=== PATIENT | female | born 1940 | race Caucasian/White ===

== ENCOUNTER → 2016-08-23 | Outpatient (CLI) | payer OTHER ==
[~2016-08-23] MED LIST: CETI10TA84 PO; EVS60 PO; EZET10TA38 PO; LANS15CA6 PO; LISI20TA3 PO; SNG10 PO; ZNTT/150 PO
--- NOTE | 2016-08-23 13:07 | MAMMOGRAPHY REPORT ---
BILATERAL DIGITAL SCREENING MAMMOGRAM WITH CAD: 08/23/2016 CLINICAL HISTORY: Routine screening. Patient has no complaints. TECHNIQUE: Bilateral CC, MLO and repeat left MLO views were obtained. Current study was also evaluat ed with a Computer Aided Detection (CAD) system. COMPARISON: Comparison is made to exams dated: 08/21/2015 mammogram, 08/19/2014 mammogram, 06/24/2013 m ammogram, 08/15/2012 mammogram, 08/15/2011 mammogram, and 08/12/2010 mammogram - [facility]. BREAST COMPOSITION: There are scattered areas of fibroglandular density in both breasts. FINDINGS: There are scattered benign-appearing microcalcifications in the breasts. A 9 mm focal asym metry in the 11:30 right breast appears similar on all available prior mammograms dating back to at [facility] 08/07/2007, therefore likely benign. No new suspicious mass, architectural distortion or cluste r of microcalcifications is seen. IMPRESSION: ACR BI-RADS CATEGORY 1: NEGATIVE There is no mammographic evidence of malignancy. A 1 year screening mammogram is recommended. The pa tient will receive written notification of the results. Approximately 10% of breast cancers are not detected with mammography. A negative mammographic report should not delay biopsy if a clinically suggestive mass is present. Lana Acevedo M.D. ay/:08/23/2016 12:12:24 Burial Needs Salesperson: Joanna BOWMAN(Rozina)(Rosalind)(BD), [facility] letter sent: Normal 1/2 BI-RADS Code: ACR BI-RADS Category 1: Negative
== END | disposition home or self-care (01) ==
LOC: C.MAMM 10:09
PROVIDERS: ATTEND Internal Medicine
DX: Z12.31 Encounter for screening mammogram for malignant neoplasm of breast (principal)

== ENCOUNTER → 2017-08-25 | Outpatient (CLI) | payer OTHER ==
[~2017-08-25] MED LIST changes: +RANI150T85 PO; -ZNTT/150 PO
--- NOTE | 2017-08-28 07:45 | MAMMOGRAPHY REPORT ---
BILATERAL DIGITAL SCREENING MAMMOGRAM TOMOSYNTHESIS WITH CAD: 08/25/2017 CLINICAL HISTORY: Routine screening. Patient has no complaints. TECHNIQUE: The study was acquired using full field digital technology and interpreted from soft copy. Breast tomosynthesis in addition to standard 2D mammography was performed. Current study was also ev aluated with a Computer Aided Detection (CAD) system. COMPARISON: Comparison is made to exams dated: 08/23/2016 mammogram, 08/21/2015 mammogram, 08/19/2014 m ammogram, 06/24/2013 ultrasound, 06/24/2013 mammogram, and 08/15/2012 mammogram - [facility]. BREAST COMPOSITION: There are scattered areas of fibroglandular density in both breasts. FINDINGS: No suspicious masses, calcifications, or areas of architectural distortion are noted in either breast . There has been no significant interval change compared to prior exams. IMPRESSION: ACR BI-RADS CATEGORY 1: NEGATIVE There is no mammographic evidence of malignancy. A 1 year screening mammogram is recommended.( 019) The patient will receive written notification of the results. Some breast cancers are not detected with mammography. A negative mammographic report should not dar y biopsy if a clinically suggestive mass is present. Tana Lawrence M.D. ah/:08/25/2017 12:33:31 Potable Water Treatment Operator: Yumiko Brenner, [facility] letter sent: Normal 1/2 BI-RADS Code: ACR BI-RADS Category 1: Negative
== END | disposition home or self-care (01) ==
LOC: C.MAMM 10:00
PROVIDERS: ATTEND Internal Medicine
DX: Z12.31 Encounter for screening mammogram for malignant neoplasm of breast (principal)

== ENCOUNTER 2022-04-28 08:38 | Observation (INO) ==
[2022-04-28] MEDS ORDERED: SODIUM CHLORIDE 0.9% 1000ML 1,000 ML IV SCH (09:00)
--- NOTE | 2022-04-28 09:01 | Emergency Department Note ---
Impression & Plan Confusion, Generalized weakness, Acute UTI (urinary tract infection) ED Provider Note ED Provider Note NAME: HALLE HAMMOND AGE:81 SEX: Female : 1940 ARRIVES VIA: EMS INFORMANT: Patient and EMS ED PROVIDER(s): Jeni Slater DO CHIEF COMPLAINT: Confusion, recent UTI, weakness, chest heaviness HPI: This is an 81-year-old female brought in by EMS due to concern for confusion, weakness, chest heaviness, and recent UTI. Patient recognizes that she is confused and became concerned and contacted EMS. They were able to determine that she has been taking Bactrim for recent UTI. Patient reported that she began to double up on the doses in the hopes of treating it sooner. She states she has not had much of an appetite but is trying to sip fluids. She denies falls or injury. She reported to EMS that she awoke at 4 AM with chest heaviness. She denies any chest pain at this time but states she feels slightly short of breath. She denies fevers but states she has been very cold. Patient lives alone at home. Patient is a poor historian and when asked some questions a second time gives alternative answers. PAST MEDICAL HISTORY:See Below PAST SURGICAL HISTORY:See Below FAMILY HISTORY:See Below SOCIAL HISTORY:See Below HOME MEDICATIONS:See Below ALLERGIES:See Below VITALS:See Below PHYSICAL EXAMINATION: GENERAL: alert, well appearing, well nourished, no distress, non-toxic EYE EXAM: normal conjunctiva, PERRL and EOM's grossly intact OROPHARYNX: no exudate, no erythema, lips, buccal mucosa, and tongue normal and mucous membranes are dry NECK: supple, no nuchal rigidity, no adenopathy, non-tender LUNGS: Clear to auscultation. Normal chest wall mechanics, no w/r/r HEART: no murmurs, S1 normal and S2 normal ABDOMEN: abdomen soft, non-tender, normo-active bowel sounds, no masses, no rebound or guarding. BACK: Back is symmetrical on inspection and there is no deformity, no midline tenderness, no CVA tenderness. SKIN: no rashes, petechiae, orbruising UPPER EXTREMITIES: upper extremities are grossly normal. FROM, nml pulses b/l. LOWER EXTREMITIES: No pitting edema. FROM, nml pulses b/l. NEURO EXAM: Normal sensorium, cranial nerves II-XII grossly intact, normal s peech, no facial droop,nogross weakness of arms, no gross weakness of legs. Gross sensation intact. No ataxia. Vital Signs: reviewed and remarkable Differential Diagnosis: Differential diagnoses includes but is not limited to toxic, metabolic, infectious, traumatic, cardiac, neurologic, hematologic, psychiatric and inflammatory etiologies. MEDICAL DECISION MAKING: This is an 81-year-old female presents via EMS due to concern for confusion, weakness, decreased appetite, recent UTI. Unclear chronology of events as patient is a poor historian and does live alone. Upon arrival of son he was able to help with some detail although not all. Patient was afebrile and vital signs were stable. Labs drawn and sent, IV established, EKG performed and interpreted by me at bedside, chest x-ray performed and interpreted by me at bedside, patient placed on telemetry. Patient's labs and chest x-ray reassuring, no acute EKG changes noted, no ectopy or dysrhythmia noted on telemetry, CT head unremarkable, and urinalysis without evidence of persistent infection. Mild leukocytosis was noted although unclear if related to recent UTI. Review of outpatient urine culture does show Bactrim was within appropriate sensitivities. Patient was started on gentle IV fluid rehydration as she did appear clinically dehydrated. Due to concern for confusion, failure to thrive, and recent infection, case discussed with hospitalist for additional evaluation and management. Consultation(s): 1102: Discussed with Padmini Bragg hospitalist service. ER Treatment Provided: See below 1002: Updated patient and son at bedside. Son feels that his mother's health and mental state of overall been in decline for several months. He states she is lost weight is not eating, seems more anxious and scared at home. Diagnostics Interpreted By Me: -ECG: Normal sinus at 81, normal axis, normal intervals, no acute ST/T wave changes -Cardiac Monitoring: An order was placed for continuous cardiac monitoring. The monitor shows a rate of 80 with normal sinus rhythm. -Laboratory studies: As stated above and show below. -Imaging studies: X-ray Chest: A single view study of the chest was reviewed and was negative for cardiomegaly, focal infiltrate, effusion, pulmonary edema, or wide mediastinum. Triage Nursing Note Reviewed Prior/Outside Records Reviewed -outside PCP office visit, UA and culture/sensitivities Procedures: [] Critical Care: [] Past Med/Surg History Medical History (Updated 04/28/22 @ 11:23 by HUMBERTO Durán) Asthma hx-"no problems for a long time" B-cell lymphoma GERD (gastroesophageal reflux disease) Hyperlipidemia Hyperparathyroidism Hypertension Osteopenia Surgical History History of cataract surgery RT History of esophagogastroduodenoscopy (EGD) History of laparotomy for removal ectopic Hx of colonoscopy Social History Smoking Status: Former smoker Second Hand Exposure: No; Do You Dip or Chew Tobacco: No; Tobacco Cessation Education Requested by Patient: No Hx Alcohol Use: No Preferred Language: Angolan Communication Ability: Effective Carburetor Repairer Required: No Beliefs That Will Affect Care: None Current Living Situation: Alone Current Living Situation Comment: Son lives next door Other Information That Helps Us Care for You: No Feels Safe at Home: Yes Safety Concerns: Feels Safe At This Time Assistive Devices: Glasses Allergies Allergies Allergy/AdvReac Type Severity Reaction Status Date / Time aspirin Allergy Mild lip sweling Verified 04/28/22 11:25 Penicillins Allergy Mild UNKNOWN Verified 04/28/22 11:26 diphenhydramine Allergy Edema of Verified 04/28/22 11:25 [From Benadryl] face, lips, tongue ibuprofen Allergy edema of Verified 04/28/22 11:25 face, lips, tongue red dye Allergy Edema of Verified 04/28/22 11:25 face, lips & tongue. [facility] Home Medications Medication Instructions Recorded Confirmed cetirizine 10 mg tablet (Zyrtec) 10 mg PO QAM 12/15/21 04/28/22 lisinopril 20 mg tablet 20 mg PO QAM 12/15/21 04/28/22 montelukast 10 mg tablet 10 mg PO HS 12/15/21 04/28/22 (Singulair) amlodipine 5 mg tablet 2.5 mg PO DAILY 04/28/22 04/28/22 atorvastatin 10 mg tablet 10 mg PO DAILY 04/28/22 04/28/22 cranberry-vitamin C-flaxseed 2 cap PO DAILY 04/28/22 04/28/22 capsule omega-3 fatty acids 1,000 mg PO DAILY 04/28/22 04/28/22 tramadol 50 mg tablet 50 mg PO Q6H PRN Pain 04/28/22 04/28/22 trazodone 50 mg tablet 50 mg PO HS 04/28/22 04/28/22 Results & Data (ED) Vital Signs Vital Signs - 24 hr 04/28/22 08:43 04/28/22 09:33 04/28/22 09:49 Temperature 37.0 C Temperature Source Oral Pulse Rate 78 70 79 Pulse Rate from SpO2 Sensor Respiratory Rate 20 20 Blood Pressure 197/82 H 183/70 H Blood Pressure Mean 120 107 Pulse Oximetry 98 95 Oxygen Delivery Method Room Air Sepsis Recent Fever Within 48 Hours No Sepsis New/Unexplained Change in Mental Status Yes Sepsis Action Taken by Nursing No Action Required 04/28/22 11:00 Temperature Temperature Source Pulse Rate 70 Pulse Rate from SpO2 Sensor 70 Respiratory Rate 18 Blood Pressure 145/72 H Blood Pressure Mean 96 Pulse Oximetry 98 Oxygen Delivery Method Sepsis Recent Fever Within 48 Hours Sepsis New/Unexplained Change in Mental Status Sepsis Action Taken by Nursing Laboratory Data 04/28/22 08:52 04/28/22 08:52 Lab Results 04/28/22 04/28/22 04/28/22 Range/Units 08:52 08:52 08:52 WBC 12.85 H (4.8-10.8) K/ul RBC 5.22 (4.20-5.40) M/uL Hgb 14.5 (12.0-16.0) g/dl Hct 43.6 (37.0-47.0) % MCV 83.5 (80.0-100.0) fL MCH 27.8 (25.0-34.0) pg MCHC 33.3 (32.0-36.0) g/dL RDW Std Deviation 39.5 (36.4-46.3) fL RDW Coeff of Estrella 12.9 (11.5-14.5) % Plt Count 297 (130-400) K/uL MPV 9.0 L (9.4-12.4) fL Immature Gran % (Auto) 0.4 % Neut % (Auto) 78.4 % Lymph % (Auto) 13.8 % Isabela % (Auto) 6.5 % Eos % (Auto) 0.4 % Baso % (Auto) 0.5 % Neut # (Auto) 10.09 H (1.40-6.50) K/uL Lymph # (Auto) 1.77 (1.2-3.4) K/uL Isabela # (Auto) 0.83 H (0.11-0.59) K/uL Eos # (Auto) 0.05 (0-0.50) K/uL Baso # (Auto) 0.06 (0-0.2) K/uL Immature Gran # (Auto) 0.05 (0.01-0.20) K/uL PT 11.4 (9.0-12.0) Seconds INR 1.1 (0.9-1.1) Sodium 136 (136-145) mmol/L Potassium 4.1 (3.5-5.1) mmol/L Chloride 103 (98-107) mmol/L Carbon Dioxide 25 (21-32) mmol/L Anion Gap 8 (3-11) BUN 13 (6-23) mg/dl Creatinine 0.87 (0.6-1.2) mg/dl Est Cr Clr Drug Dosing 45.9 ml/min Est GFR ( Amer) 72.4 ml/min Est GFR (Non-Af Amer) 62.5 ml/min BUN/Creatinine Ratio 14.9 (10-20) Glucose 107 H (70-99(Fasting)) mg/dl Calcium 10.2 (8.6-10.3) mg/dl Magnesium 1.8 (1.7-2.4) mg/dl Total Bilirubin 0.6 (0.2-1.0) mg/dl AST 25 (13-39) U/L ALT 32 (7-52) U/L Alkaline Phosphatase 64 (34-104) U/L Troponin I High Sens 9.3 (0-14) pg/ml Total Protein 7.2 (6.0-8.3) gm/dl Albumin 4.4 (3.4-5.0) gm/dl Globulin 2.8 (2.5-4.0) gm/dl Albumin/Globulin Ratio 1.6 (0.9-2) Lipase 15 (11-82) U/L Procalcitonin (0-0.5) ng/ml TSH (0.300-4.500) uIu/ml Urine Color Urine Appearance (Clear) Urine pH (4.5-7.5) Ur Specific [place] (1.000-1.030) Urine Protein (Negative) Urine Glucose (UA) (Negative) Urine Ketones (Negative) Urine Blood (Negative) Urine Nitrite (Negative) Urine Bilirubin (Negative) Urine Urobilinogen (Negative) Ur Leukocyte Esterase (Negative) SARS-CoV-2 (PCR) (Negative) Influenza Type A (PCR) (Neg) Influenza Type B (PCR) (Neg) RSV (RT-PCR) (Neg) 04/28/22 04/28/22 04/28/22 Range/Units 08:52 08:52 08:55 WBC (4.8-10.8) K/ul RBC (4.20-5.40) M/uL Hgb (12.0-16.0) g/dl Hct (37.0-47.0) % MCV (80.0-100.0) fL MCH (25.0-34.0) pg MCHC (32.0-36.0) g/dL RDW Std Deviation (36.4-46.3) fL RDW Coeff of Estrella (11.5-14.5) % Plt Count (130-400) K/uL MPV (9.4-12.4) fL Immature Gran % (Auto) % Neut % (Auto) % Lymph % (Auto) % Isabela % (Auto) % Eos % (Auto) % Baso % (Auto) % Neut # (Auto) (1.40-6.50) K/uL Lymph # (Auto) (1.2-3.4) K/uL Isabela # (Auto) (0.11-0.59) K/uL Eos # (Auto) (0-0.50) K/uL Baso # (Auto) (0-0.2) K/uL Immature Gran # (Auto) (0.01-0.20) K/uL PT (9.0-12.0) Seconds INR (0.9-1.1) Sodium (136-145) mmol/L Potassium (3.5-5.1) mmol/L Chloride (98-107) mmol/L Carbon Dioxide (21-32) mmol/L Anion Gap (3-11) BUN (6-23) mg/dl Creatinine (0.6-1.2) mg/dl Est Cr Clr Drug Dosing ml/min Est GFR ( Amer) ml/min Est GFR (Non-Af Amer) ml/min BUN/Creatinine Ratio (10-20) Glucose (70-99(Fasting)) mg/dl Calcium (8.6-10.3) mg/dl Magnesium (1.7-2.4) mg/dl Total Bilirubin (0.2-1.0) mg/dl AST (13-39) U/L ALT (7-52) U/L Alkaline Phosphatase (34-104) U/L Troponin I High Sens (0-14) pg/ml Total Protein (6.0-8.3) gm/dl Albumin (3.4-5.0) gm/dl Globulin (2.5-4.0) gm/dl Albumin/Globulin Ratio (0.9-2) Lipase (11-82) U/L Procalcitonin < 0.05 (0-0.5) ng/ml TSH 1.414 (0.300-4.500) uIu/ml Urine Color Urine Appearance (Clear) Urine pH (4.5-7.5) Ur Specific [place] (1.000-1.030) Urine Protein (Negative) Urine Glucose (UA) (Negative) Urine Ketones (Negative) Urine Blood (Negative) Urine Nitrite (Negative) Urine Bilirubin (Negative) Urine Urobilinogen (Negative) Ur Leukocyte Esterase (Negative) SARS-CoV-2 (PCR) NEGATIVE (Negative) Influenza Type A (PCR) Negative (Neg) Influenza Type B (PCR) Negative (Neg) RSV (RT-PCR) Negative (Neg) 04/28/22 Range/Units 09:20 WBC (4.8-10.8) K/ul RBC (4.20-5.40) M/uL Hgb (12.0-16.0) g/dl Hct (37.0-47.0) % MCV (80.0-100.0) fL MCH (25.0-34.0) pg MCHC (32.0-36.0) g/dL RDW Std Deviation (36.4-46.3) fL RDW Coeff of Estrella (11.5-14.5) % Plt Count (130-400) K/uL MPV (9.4-12.4) fL Immature Gran % (Auto) % Neut % (Auto) % Lymph % (Auto) % Isabela % (Auto) % Eos % (Auto) % Baso % (Auto) % Neut # (Auto) (1.40-6.50) K/uL Lymph # (Auto) (1.2-3.4) K/uL [place] # (Auto) (0.11-0.59) K/uL Eos # (Auto) (0-0.50) K/uL Baso # (Auto) (0-0.2) K/uL Immature Gran # (Auto) (0.01-0.20) K/uL PT (9.0-12.0) Seconds INR (0.9-1.1) Sodium (136-145) mmol/L Potassium (3.5-5.1) mmol/L Chloride (98-107) mmol/L Carbon Dioxide (21-32) mmol/L Anion Gap (3-11) BUN (6-23) mg/dl Creatinine (0.6-1.2) mg/dl Est Cr Clr Drug Dosing ml/min Est GFR ( Amer) ml/min Est GFR (Non-Af Amer) ml/min BUN/Creatinine Ratio (10-20) Glucose (70-99(Fasting)) mg/dl Calcium (8.6-10.3) mg/dl Magnesium (1.7-2.4) mg/dl Total Bilirubin (0.2-1.0) mg/dl AST (13-39) U/L ALT (7-52) U/L Alkaline Phosphatase (34-104) U/L Troponin I High Sens (0-14) pg/ml Total Protein (6.0-8.3) gm/dl Albumin (3.4-5.0) gm/dl Globulin (2.5-4.0) gm/dl Albumin/Globulin Ratio (0.9-2) Lipase (11-82) U/L Procalcitonin (0-0.5) ng/ml TSH (0.300-4.500) uIu/ml Urine Color Yellow Urine Appearance Clear (Clear) Urine pH 7.0 (4.5-7.5) Ur Specific [place] 1.007 (1.000-1.030) Urine Protein Negative (Negative) Urine Glucose (UA) Negative (Negative) Urine Ketones Negative (Negative) Urine Blood Negative (Negative) Urine Nitrite Negative (Negative) Urine Bilirubin Negative (Negative) Urine Urobilinogen Negative (Negative) Ur Leukocyte Esterase Negative (Negative) SARS-CoV-2 (PCR) (Negative) Influenza Type A (PCR) (Neg) Influenza Type B (PCR) (Neg) RSV (RT-PCR) (Neg) Administered Medications Heparin Sodium (Porcine) (Heparin Sod 5,000 Unit/0.5 Ml Vial) 5,000 units SQ Q8 ROSEANN Stop: 05/28/22 13:59 Last Admin: 04/28/22 15:13 Dose: 5,000 units Documented By: RICARDO Discontinued Medications Amlodipine Besylate (Amlodipine Besylate 5 Mg Tab) 2.5 mg PO NOW ONE Stop: 04/28/22 11:13 Last Admin: 04/28/22 11:30 Dose: 2.5 mg Documented By: BELTRAN Amlodipine Besylate (Amlodipine Besylate 5 Mg Tab) 2.5 mg PO NOW ONE Stop: 04/28/22 16:22 Last Admin: 04/28/22 17:12 Dose: 2.5 mg Documented By: RICARDO Sodium Chloride (Nss 1000ml) 1,000 mls @ 125 mls/hr IV .Q8H ROSEANN Stop: 05/28/22 08:59 Last Infusion: 04/28/22 12:31 Dose: 0 mls/hr Documented By: Admin: 04/28/22 09:50 Dose: 125 mls/hr Documented By: BELTRAN Lisinopril (Lisinopril 20 Mg Tab) 20 mg PO NOW STA Stop: 04/28/22 11:13 Last Admin: 04/28/22 12:19 Dose: 20 mg Documented By: BELTRAN Imaging Data Radiologist's Impression: Chest X-Ray 04/28/22 08:46 XR chest 1V portable CLINICAL HISTORY: Chest pain. Shortness of breath. COMPARISON STUDY: Chest radiograph August 15, 2010. FINDINGS: Lung volumes are normal. There is no consolidation to suggest pneumonia. Linear left basilar densities represent atelectasis or scarring. There is no pneumothorax or pleural effusion. Cardiac size is normal. There is slight leftward deviation of the trachea. There is no evidence for pulmonary edema. IMPRESSION: No acute cardiopulmonary findings. ACT 112: Negative or not required by law. Electronically signed by: Teo Araujo M.D. 04/28/2022 9:[address] 04/28/22 08:46 CT head/brain wo con CLINICAL HISTORY: confusion Technique: Contiguous axial CT images of the head were acquired from the base of the skull to the vertex without intravenous contrast administration. Images were viewed in brain, subdural and bone windows. Automated dose lowering techniques and/or adjustment according to patient size were utilized for this exam. Comparison: None available at the time of this dictation. Findings: Areas of decreased attenuation are present in the periventricular and subcortical white matter bilaterally consistent with small vessel ischemic disease. Generalized cerebral atrophy with commensurate enlargement of the ventricles, sulci, and cisterns is also present. There is no acute intracranial hemorrhage or evidence of acute territorial infarction. No shift of the midline structures, mass effect, or extra-axial abnormalities are shown. Atherosclerotic calcifications are present in the intracranial segments of the internal carotid arteries. Imaged portions of the paranasal sinuses and mastoid air cells are clear. The orbits appear normal. There are no acute fractures of the calvaria or scalp swelling. Impression: No acute intracranial hemorrhage, no evidence of acute territorial infarction or other acute intracranial disease process. ACT 112: Negative or not required by law. Electronically signed by: Julian Culp M.D. 04/28/2022 9:17 AM Discharge Plan Visit Data Chief Complaint: Chest Pain Stated Complaint: CHEST PAIN, CONFUSION, RED RASH ON LEG ED Provider: Jeni Slater Discharge Problem: Confusion, Generalized weakness, Acute UTI (urinary tract infection) Patient Disposition: Admitted As Inpatient Discharge Instructions Interventions: ED Discharge Assessment Last Done: 04/28/22 12:33
[2022-04-28 09:11] LABS: Basophils # (auto) 0.06 K/uL (0-0.2); Basophils % (auto) 0.5 %; Eosinophils # (auto) 0.05 K/uL (0-0.50); Eosinophils % (auto) 0.4 %; Hematocrit (blood only) 43.6 % (37.0-47.0); Hemoglobin 14.5 g/dl (12.0-16.0); Immature Granulocytes # (auto) 0.05 K/uL (0.01-0.20); Immature Granulocytes % (auto) 0.4 %; Lymphocytes # (auto) 1.77 K/uL (1.2-3.4); Lymphocytes % (auto) 13.8 %; Mean Corpuscular Hemoglobin 27.8 pg (25.0-34.0); Mean Corpuscular Hgb Conc 33.3 g/dL (32.0-36.0); Mean Corpuscular Volume 83.5 fL (80.0-100.0); Monocytes # (auto) 0.83 K/uL (0.11-0.59); Monocytes % (auto) 6.5 %; Neutrophils # (auto) 10.09 K/uL (1.40-6.50); Neutrophils % (auto) 78.4 %; Platelet Count 297 K/uL (130-400); RDW Coefficient of Variation 12.9 % (11.5-14.5); RDW Standard Deviation 39.5 fL (36.4-46.3); Red Blood Count 5.22 M/uL (4.20-5.40); White Blood Count 12.85 K/ul (4.8-10.8)
--- NOTE | 2022-04-28 09:18 | CT Scan Report ---
CT head/brain wo con CLINICAL HISTORY: confusion Technique: Contiguous axial CT images of the head were acquired from the base of the skull to the aldo jud without intravenous contrast administration. Images were viewed in brain, subdural and bone [facility]. Automated dose lowering techniques and/or adjustment according to patient size were utilized for this exam. Comparison: None available at the time of this dictation. Findings: Areas of decreased attenuation are present in the periventricular and subcortical white matter bilate rally consistent with small vessel ischemic disease. Generalized cerebral atrophy with commensurate e nlargement of the ventricles, sulci, and cisterns is also present. There is no acute intracranial hem orrhage or evidence of acute territorial infarction. No shift of the midline structures, mass effect, or extra-axial abnormalities are shown. Atherosclerotic calcifications are present in the intracran ial segments of the internal carotid arteries. Imaged portions of the paranasal sinuses and mastoid air cells are clear. The orbits appear normal. There are no acute fractures of the calvaria or scalp swelling. Impression: No acute intracranial hemorrhage, no evidence of acute territorial infarction or other acute intracra nial disease process. ACT 112: Negative or not required by law. Electronically signed by: Julian Culp M.D. 04/28/2022 9:17 AM
--- NOTE | 2022-04-28 09:21 | XRay Report ---
XR chest 1V portable CLINICAL HISTORY: Chest pain. Shortness of breath. COMPARISON STUDY: Chest radiograph August 15, 2010. FINDINGS: Lung volumes are normal. There is no consolidation to suggest pneumonia. Linear left basila r densities represent atelectasis or scarring. There is no pneumothorax or pleural effusion. Cardiac size is normal. There is slight leftward deviation of the trachea. There is no evidence for pulmonary edema. IMPRESSION: No acute cardiopulmonary findings. ACT 112: Negative or not required by law. Electronically signed by: eTo Araujo M.D. 04/28/2022 9:19 AM
[2022-04-28 09:33] LABS: Albumin Globulin Ratio 1.6 (0.9-2); Albumin Level 4.4 gm/dl (3.4-5.0); BUN Creatinine Ratio 14.9 (10-20); Bilirubin,Total 0.6 mg/dl (0.2-1.0); Calcium 10.2 mg/dl (8.6-10.3); Creatinine Clr Calc Pharmacy 45.9 ml/min; Est GFR (African American) 72.4 ml/min; Est GFR (Non-African American) 62.5 ml/min; Globulin 2.8 gm/dl (2.5-4.0); Magnesium 1.8 mg/dl (1.7-2.4); Potassium 4.1 mmol/L (3.5-5.1); Total Protein 7.2 gm/dl (6.0-8.3)
[2022-04-28 09:38] LABS: INR 1.1 (0.9-1.1); Prothrombin Time 11.4 Seconds (9.0-12.0); Troponin I High Sensitivity 9.3 pg/ml (0-14)
[2022-04-28 09:58] LABS: Appearance Urine Clear (Clear); Bilirubin Urine Negative (Negative); Blood Urine Negative (Negative); Color Urine Yellow; Glucose Urine UA Negative (Negative); Ketones Urine Negative (Negative); Leukocyte Esterase Urine Negative (Negative); Nitrite Urine Negative (Negative); Protein Urine Negative (Negative); Specific Gravity Urine 1.007 (1.000-1.030); Urobilinogen Urine Negative (Negative)
[2022-04-28 09:59] LABS: Influenza A virus by PCR Negative (Neg); Influenza B virus by PCR Negative (Neg); RSV by PCR Negative (Neg); SARS CoV2 RNA(COVID-19) Ceph NEGATIVE (Negative)
[2022-04-28] MEDS ORDERED: lisinopril 20 MG TAB PO STA (11:12)
[2022-04-28] MEDS ORDERED: amLODIPine BESYLATE 5 MG TAB PO ONE ×2 (11:12→16:21)
--- NOTE | 2022-04-28 11:25 | History & Physical Report ---
Date of Service April 28, 2022 Assessment & Plan (1) Generalized weakness: (2) Confusion: Plan: Admit to med/surg with tele Patient presenting from home with reports of generalized weakness and increased confusion. Treated for UTI last week by PCP with a 7 day course of Bactrim. Patient states she completed the antibiotic "ahead of schedule" and took 14 tablets within 5 days. In the ED, patient found to be significantly hypertensive with BP 197/82 Hypertensive urgency and chronic/worsening cognitive impairment likely contributing to patient's symptoms. There is report the patient had complained of chest pain prior to arriving to the ED, patient currently denying this. EKG without acute ST changes. Initial troponin negative, will continue to trend. Outpatient urine culture grew pansensitive E. coli. UA today clean. Hold on further treatment at this time. PT/OT, case management consult (3) Hypertensive urgency: Plan: Presenting BP 197/82, amlodipine recently reduced to 2.5 mg daily by PCP for complaints of dizziness Patient did not take antihypertensives this a.m., will resume home doses of amlodipine 2.5 mg and lisinopril 20 mg. Monitor BP, consider increasing amlodipine if needed. (4) B-cell lymphoma: Plan: No acute issues, under surveillance (5) Hyperparathyroidism: Plan: Calcium 10.2, no acute issues DVT PROPHYLAXIS SQ heparin I spent a total of 75 minutes coordinating, documenting, and providing care for this patient excluding time spent in the performance of separately billed services. This included personally reviewing all current laboratories and imaging studies, medication reconciliation, outpatient chart review, and discussion with specialists. History of Present Illness Chief Complaint: Weakness Primary Care Provider: Armando Arteaga MD 81 year old female with PMH hyperparathyroidism, HTN, allergic rhinitis, asthma, B-cell lymphoma, and other problems listed below who presents to the ED for evaluation of generalized weakness and confusion. History obtained from patient and son by Dr. Cisneros and my personal review of outpatient PCP, endocrinology, oncology records. Patient reports she has been feeling weak and dizzy for the past couple of weeks. Patient was seen by PCP last week and diagnosed with UTI. Patient was given Bactrim on 04/23 for a 7 day course. Patient's son states she completed the antibiotic "ahead of schedule". Patient reports that this morning she noticed increased generalized weakness and confusion. She pressed her life alert button and was brought to the ED for further eval. According to ED provider, there was also a complaint of chest pain and shortness of breath. Patient is currently denying these symptoms. She reports urinary symptoms have resolved. No fever or chills. Denies abdominal pain, nausea, vomiting, and diarrhea. Patient does report a poor appetite and sometimes forgetting to eat. Patient and son note increasing forgetfulness recently. In the ED, patient's initial BP 197/82. This improved without intervention. CXR and head CT unremarka ble. Labs unremarkable. Patient was given IVF. Allergies Allergy/AdvReac Type Severity Reaction Status Date / Time aspirin Allergy Mild lip sweling Verified 04/28/22 11:25 Penicillins Allergy Mild UNKNOWN Verified 04/28/22 11:26 diphenhydramine Allergy Edema of Verified 04/28/22 11:25 [From Benadryl] face, lips, tongue ibuprofen Allergy edema of Verified 04/28/22 11:25 face, lips, tongue red dye Allergy Edema of Verified 04/28/22 11:25 face, lips & tongue. Hives Home Medications Medication Instructions Recorded Confirmed Type cetirizine 10 mg tablet (Zyrtec) 10 mg PO QAM 12/15/21 04/28/22 History lisinopril 20 mg tablet 20 mg PO QAM 12/15/21 04/28/22 History montelukast 10 mg tablet 10 mg PO HS 12/15/21 04/28/22 History (Singulair) amlodipine 5 mg tablet 2.5 mg PO DAILY 04/28/22 04/28/22 History atorvastatin 10 mg tablet 10 mg PO DAILY 04/28/22 04/28/22 History cranberry-vitamin C-flaxseed 2 cap PO DAILY 04/28/22 04/28/22 History capsule omega-3 fatty acids 1,000 mg PO DAILY 04/28/22 04/28/22 History tramadol 50 mg tablet 50 mg PO Q6H PRN Pain 04/28/22 04/28/22 History trazodone 50 mg tablet 50 mg PO HS 04/28/22 04/28/22 History Past Med/Surg History Medical History (Updated 04/28/22 @ 11:23 by HUMBERTO Durán) Asthma hx-"no problems for a long time" B-cell lymphoma GERD (gastroesophageal reflux disease) Hyperlipidemia Hyperparathyroidism Hypertension Osteopenia Surgical History History of cataract surgery RT History of esophagogastroduodenoscopy (EGD) History of laparotomy for removal ectopic Hx of colonoscopy Social History Smoking Status: Former smoker Second Hand Exposure: No; Hx Alcohol Use: No Preferred Language: Yakut Communication Ability: Effective Rubber Press Tender Required: No Beliefs That Will Affect Care: None Current Living Situation: Alone Feels Safe at Home: Yes Review of Systems Review of Systems: ROS per HPI, all other systems reviewed and negative Physical Exam Physical Exam: please refer to Dr. Cisneros's addendum for physical exam Results & Data Results & Data Vital Signs (Past 12 Hours) Vital Signs Temp Pulse Resp BP Pulse Ox O2 Del Method 04/28/22 09:49 79 04/28/22 09:33 70 20 183/70 H 95 04/28/22 08:43 37.0 C 78 20 197/82 H 98 Room Air Laboratory Results Short CBC 04/28/22 Range/Units 08:52 WBC 12.85 H (4.8-10.8) K/ul Hgb 14.5 (12.0-16.0) g/dl Hct 43.6 (37.0-47.0) % Plt Count 297 (130-400) K/uL BMP 04/28/22 08:52 Sodium 136 Potassium 4.1 Chloride 103 Carbon Dioxide 25 BUN 13 Creatinine 0.87 Glucose 107 H Calcium 10.2 Liver Function 04/28/22 Range/Units 08:52 Total Bilirubin 0.6 (0.2-1.0) mg/dl AST 25 (13-39) U/L ALT 32 (7-52) U/L Alkaline Phosphatase 64 (34-104) U/L Albumin 4.4 (3.4-5.0) gm/dl Urine 04/28/22 Range/Units 09:20 Urine Color Yellow Urine Appearance Clear (Clear) Urine pH 7.0 (4.5-7.5) Ur Specific [place] 1.007 (1.000-1.030) Urine Protein Negative (Negative) Urine Glucose (UA) Negative (Negative) Diagnostic Findings Chest X-Ray 04/28/22 08:46 XR chest 1V portable CLINICAL HISTORY: Chest pain. Shortness of breath. COMPARISON STUDY: Chest radiograph August 15, 2010. FINDINGS: Lung volumes are normal. There is no consolidation to suggest pneumonia. Linear left basilar densities represent atelectasis or scarring. There is no pneumothorax or pleural effusion. Cardiac size is normal. There is slight leftward deviation of the trachea. There is no evidence for pulmonary edema. IMPRESSION: No acute cardiopulmonary findings. ACT 112: Negative or not required by law. Electronically signed by: Teo Araujo M.D. 04/28/2022 9:[address] 04/28/22 08:46 CT head/brain wo con CLINICAL HISTORY: confusion Technique: Contiguous axial CT images of the head were acquired from the base of the skull to the vertex without intravenous contrast administration. Images were viewed in brain, subdural and bone windows. Automated dose lowering techniques and/or adjustment according to patient size were utilized for this exam. Comparison: None available at the time of this dictation. Findings: Areas of decreased attenuation are present in the periventricular and subcortical white matter bilaterally consistent with small vessel ischemic disease. Generalized cerebral atrophy with commensurate enlargement of the ventricles, sulci, and cisterns is also present. There is no acute intracranial hemorrhage or evidence of acute territorial infarction. No shift of the midline structures, mass effect, or extra-axial abnormalities are shown. Atherosclerotic calcifications are present in the intracranial segments of the internal carotid arteries. Imaged portions of the paranasal sinuses and mastoid air cells are clear. The orbits appear normal. There are no acute fractures of the calvaria or scalp swelling. Impression: No acute intracranial hemorrhage, no evidence of acute territorial infarction or other acute intracranial disease process. ACT 112: Negative or not required by law. Electronically signed by: Julian Culp M.D. 04/28/2022 9:17 AM Code Status & VTE Plan VTE Prophylaxis Plan VTE Prophylaxis will be ordered: Yes Supervising Physician Co-Signing Physician Notes History and physical exam performed by me notable for 81 year old woman who presents with increased unsteadiness, some ambulatory dysfunction/dizziness and confusion. Per patient and son, she has been gradually getting forgetful overtime. She lives alone though son lives next door. Besides the aforementioned, she noted anorexia and sometimes forgetting to eat. Denied other complaints on ROS She uses pill packs for her meds. No falls. On exam, General: Elderly woman, no acute distress and not ill appearing Eyes: PERRL, conjunctivae normal, not pale, anicteric sclerae, EOM intact bilaterally ENMT: External ear and nose normal, oropharynx normal Respiratory: Normal respiratory effort, no respiratory distress, lungs clear to auscultation, no crackles and no wheezes Cardiovascular: RRR S1 S2 Gastrointestinal (Abdomen): Abdomen is not distended, soft, non-tender to palpation, no guarding, no palpable hepatosplenomegaly, normal bowel sounds Musculoskeletal: No pedal edema, mild redness on left leg but no tenderness, swelling or wounds noted Genitourinary: No CVA tenderness Neurologic: Alert and oriented x 3, No focal weakness, sensation grossly intact Psychiatric: Euthymic affect Labs only notable for WBC of 12.8 UA is clean BP is elevated. Hypertensive urgency Patient and son's history concerning for possible age related cognitive impair ment, FTT. Has completed antibiotics for UTI though she completed it a day or so too early which raises concern for being forgetful and may not be taking meds appropriately. Son stated he will become more involved in managing her meds. No urinary symptoms at this time Resume home antihypertensives and monitor. May adjust as needed. PT/oT eval. May need a walker, home PT/home health services. Other plans as detailed by Mahsa PAUL
[2022-04-28] MEDS ORDERED: traMADol HCL 50 MG TABLET PO PRN (13:38)
[2022-04-28] MEDS ORDERED: ACETAMINOPHEN 325 MG TAB PO PRN (13:38)
--- NOTE | 2022-04-28 14:14 | Electrocardiogram Report ---
Test Reason : Blood Pressure : / mmHG Vent. Rate : 081 BPM Atrial Rate : 081 BPM P-R Int : 140 ms QRS Dur : 088 ms QT Int : 390 ms P-R-T Axes : 074 -03 036 degrees QTc Int : 453 ms Normal sinus rhythm Normal ECG When compared with ECG of 15-AUG-2010 14:33, Criteria for Inferior infarct are no longer Present Confirmed by Renato Rubin ([id number]) on 04/28/2022 2:14:33 PM Referred By: REFERRED SELF Confirmed By:Oskar Rubin
[2022-04-28] MEDS: HEPARIN SOD 5,000 UNIT/0.5 ML VIAL SQ SCH ×2 (15:13→20:50)
[2022-04-28] MEDS ORDERED: MONTELUKAST SODIUM 10 MG TABLET PO SCH (21:00)
[2022-04-28] MEDS ORDERED: traZODone HCL 50 MG TAB PO SCH (21:00)
[2022-04-29] MEDS: HEPARIN SOD 5,000 UNIT/0.5 ML VIAL SQ SCH ×2 (06:22→13:50)
[2022-04-29 06:38] LABS: Hematocrit (blood only) 42.7 % (37.0-47.0); Hemoglobin 14.1 g/dl (12.0-16.0); Mean Corpuscular Hemoglobin 27.9 pg (25.0-34.0); Mean Corpuscular Volume 84.6 fL (80.0-100.0); Mean Platelet Volume 9.1 fL (9.4-12.4); Platelet Count 287 K/uL (130-400); RDW Coefficient of Variation 13.3 % (11.5-14.5); RDW Standard Deviation 41.1 fL (36.4-46.3); Red Blood Count 5.05 M/uL (4.20-5.40); White Blood Count 11.19 K/ul (4.8-10.8)
[2022-04-29 06:48] LABS: BUN Creatinine Ratio 19.8 (10-20); Calcium 9.7 mg/dl (8.6-10.3); Creatinine Clr Calc Pharmacy 42.4 ml/min; Est GFR (African American) 73.4 ml/min; Est GFR (Non-African American) 63.4 ml/min
[2022-04-29] MEDS ORDERED: lisinopril 20 MG TAB PO SCH (09:00)
[2022-04-29] MEDS ORDERED: ATORVASTATIN 10 MG TAB PO SCH (09:00)
[2022-04-29] MEDS ORDERED: amLODIPine BESYLATE 5 MG TAB PO SCH ×2 (09:00)
[2022-04-29] MEDS ORDERED: CETIRIZINE HCL 10 MG TABLET PO SCH (09:00)
--- NOTE | 2022-04-29 14:04 | Discharge Summary ---
Date of Service April 29, 2022 Admission HPI Per Admitting Provider 81 year old female with PMH hyperparathyroidism, HTN, allergic rhinitis, asthma, B-cell lymphoma, and other problems listed below who presents to the ED for evaluation of generalized weakness and confusion. History obtained from patient and son by Dr. Cisneros and my personal review of outpatient PCP, endocrinology, oncology records. Patient reports she has been feeling weak and dizzy for the past couple of weeks. Patient was seen by PCP last week and diagnosed with UTI. Patient was given Bactrim on 04/23 for a 7 day course. Patient's son states she completed the antibiotic "ahead of schedule". Patient reports that this morning she noticed increased generalized weakness and confusion. She pressed her life alert button and was brought to the ED for further eval. According to ED provider, there was also a complaint of chest pain and shortness of breath. Patient is currently denying these symptoms. She reports urinary symptoms have resolved. No fever or chills. Denies abdominal pain, nausea, vomiting, and d iarrhea. Patient does report a poor appetite and sometimes forgetting to eat. Patient and son note increasing forgetfulness recently. In the ED, patient's initial BP 197/82. This improved without intervention. CXR and head CT unremarkable. Labs unremarkable. Patient was given IVF. Admission Exam Per Admitting Provider General: Elderly woman, no acute distress and not ill appearing Eyes: PERRL, conjunctivae normal, not pale, anicteric sclerae, EOM intact bilaterally ENMT: External ear and nose normal, oropharynx normal Respiratory: Normal respiratory effort, no respiratory distress, lungs clear to auscultation, no crackles and no wheezes Cardiovascular: RRR S1 S2 Gastrointestinal (Abdomen): Abdomen is not distended, soft, non-tender to palpation, no guarding, no palpable hepatosplenomegaly, normal bowel sounds Musculoskeletal: No pedal edema, mild redness on left leg but no tenderness, swelling or wounds noted Genitourinary: No CVA tenderness Neurologic: Alert and oriented x 3, No focal weakness, sensation grossly intact Psychiatric: Euthymic affect Principal Diagnosis Generalized weakness Likely metabolic encephalopathy Hypertensive urgency secondary to missed home BP meds Discharge Exam GENERAL: Alert and oriented x3. NAD, on RA. HEENT: No pallor, no icterus. Pupils equal, round and reactive to light. Oral mucosa moist. NECK: No JVD, no neck masses. HEART: S1 and S2 heard. Regular rate and rhythm. No murmur, no gallop. RESPIRATORY SYSTEM: Normal AP diameter. No accessory muscle use. No wheezing, no crackles. ABDOMEN: Soft, bowel sounds present, nontender, no distention. CENTRAL NERVOUS SYSTEM: No facial droop. Speech is clear. Obeys simple commands. Moves extremities. EXTREMITIES: No edema, no erythema seen. Discharge Data Allergies Allergy/AdvReac Type Severity Reaction Status Date / Time aspirin Allergy Mild lip sweling Verified 04/28/22 11:25 Penicillins Allergy Mild UNKNOWN Verified 04/28/22 11:26 diphenhydramine Allergy Edema of Verified 04/28/22 11:25 [From Benadryl] face, lips, tongue ibuprofen Allergy edema of Verified 04/28/22 11:25 face, lips, tongue red dye Allergy Edema of Verified 04/28/22 11:25 face, lips & tongue. Hives Consultations 04/28/22 10:56 ED Decision to Admit Stat Ordered Studies 04/28/22 08:46 CT head/brain wo con Stat Hospital Course (1) Generalized weakness: (2) Confusion: Patient presenting from home with reports of generalized weakness and increased confusion. Treated for UTI last week by PCP with a 7 day course of Bactrim. Patient states she completed the antibiotic "ahead of schedule" and took 14 tablets within 5 days. In the ED, patient found to be significantly hypertensive with BP 197/82 Hypertensive urgency and chronic/worsening cognitive impairment likely contributing to patient's symptoms. EKG without acute ST changes. Initial troponin negative, will continue to trend. Outpatient urine culture grew pansensitive E. coli. UA at admission clean. No further treatment at this time. PT/OT, case management consult - recs is Home w/ HH. Pt AOx4 and reports gaining her strength back and would like to go home. (3) Hypertensive urgency: Presenting BP 197/82, amlodipine recently reduced to 2.5 mg daily by PCP for complaints of dizziness Patient did not take antihypertensives on the a.m. of arrival day, amlod 5 mg and resume other home meds BP fairly better controlled now. (4) B-cell lymphoma: No acute issues, under surveillance (5) Hyperparathyroidism: Calcium 10.2, no acute issues DVT PROPHYLAXIS: SQ heparin Plan Patient being discharged to home with home health with following instruction at the point of discharge: Follow-up with your primary care physician within a week time and likely you will need labs CBC/CMP/magnesium/phosphorus. Continue with home health physical therapy. Avoid falls. Take your medications as prior. Home Health Attestation I certify that this patient is under my care and that I, or a physicians insurance claims assistant working with me, had a face to-face encounter that meets the home health [id number] encounter requirements with this patient. The encounter with the patient was in whole, or in part, for the following medical condition, which is the primary reason for home health care (list medical condition): I certify that, based on my findings, the following services are medically necessary home health services: My clinical findings support the need for the above services because: Further, I certify that my clinical findings support that this patient is homebound (i.e. absences from home require considerable and taxing effort and are for medical reasons or synagogue services or infrequently or of short duration when for other reasons) because: Certification for Home Health Services: Based on the above findings, I certify that this patient is confined to the home and needs intermittent snf care, physical therapy and/or speech therapy or continues to need occupational therapy. The patient is under my care, and I have initiated the establishment of the plan of care. This patient will be followed by a physician who will periodically review the plan of care. Total Time Total Time Spent Total Time Spent (In Minutes): 45 Discharge Plan Discharge Items Patient Disposition: Home - Home Health Services Reason For Visit: WEAKNESS Discharge Diagnosis: Generalized weakness Likely metabolic encephalopathy Hypertensive urgency secondary to missed home BP meds Activity: Resume your previous activity Non-emergency contact: Primary Care Provider Call non-emergency contact if: you have any medication questions Follow-up/Referrals: Armando Arteaga MD [Primary Care Provider] - Diet: Heart Healthy Addtl Attending Provider Instructions: Follow-up with your primary care physician within a week time and likely you will need labs CBC/CMP/magnesium/phosphorus. Continue with home health physical therapy. Avoid falls. Take your medications as prior. Pending Studies at Discharge: No Stand-Alone Forms: [employer], Smoking Cessation Medications and DC Order Prescriptions: Continued trazodone 50 mg tablet 50 mg PO HS atorvastatin 10 mg tablet 10 mg PO DAILY tramadol 50 mg tablet 50 mg PO Q6H PRN (Reason: Pain) cranberry-vitamin C-flaxseed Capsule 2 cap PO DAILY cetirizine [Zyrtec] 10 mg Tablet 10 mg PO QAM lisinopril 20 mg Tablet 20 mg PO QAM montelukast [Singulair] 10 mg Tablet 10 mg PO HS Changed amlodipine 5 mg tablet 5 mg PO DAILY Qty: 30 0RF Discontinued Fish Oil Capsule 1,000 mg PO DAILY Admission Data Admit Date/Time: 04/28/22 11:07 Attending Provider: Juliet Diaz Admit Provider: Honey Cisneros I. Primary Care Provider: Armando Arteaga Other Providers: Honey Cisneros I.
== END 2022-04-29 16:05 | disposition home health service (06) ==
LOC: 2N 08:38 → ED 08:38 → SUATTDRO 11:07 → 2N 12:33

== ENCOUNTER 2023-03-19 10:49 | Observation (INO) ==
--- OUTSIDE RECORDS SUMMARY | 2023-03-19 10:54 | External Medical Summary | Summary of Care ---
Author Name Unknown Organization [facility] Address [address] [place] [address] Phone [phone] Care Team Providers Care Historic Sites Supervisor Name Role Phone Kathy Sweeney MD Primary Care Provider [phone] Reason for Visit * Reason Comments Outpatient Testing Encounter Details Date Type Department Care Team (Late st Contact Info) Description 01/11/2023 11:20 AM EST Laboratory [facility] [place] [address] [place] [id number] [place], [facility] [address] [address] [place] [address] Sepsis without acute organ dysfunction, due to unspecified organism (HCC); Hypercalcemia; Leukocytosis, unspecified type; History of B-cell lymphoma; Hypophosphatemia Allergies Active Allergy Reactions Criticality Noted Date Comments Aspirin Anaphylaxis High 12/21/2016 Lip swelling Diphenhydramine Hcl Edema face/lips/tongue High 08/07 Ibuprofen Edema face/lips/tongue High 10/08/2002 Penicillins Unknown 10/08/2002 Red Dye Edema face/lips/tongue,Hives High 09/13/2005 documented as of this encounter (statuses as of 01/11/2023) Medications Medication Sig Dispensed Refills Start Date End Date Status polyethylene glycol 3350 (MIRALAX) 255 gram powderIndications:Irr itable bowel syndrome with constipation Take 17 g by mouth as needed for Constipation. Dissolve one heaping tablespoon in 8 ounces of water or juice. 1 Bottle 2 12/25/2018 Active Lisinopril 20 MG Oral Tablet (Prinivil)Indications :HTN, goal below 140/90 Take by mouth 1 Tablet in the morning. 90 Tablet 3 11/12/2021 Active Cetirizine HCl 10 MG Oral Tablet Take 1 Tablet by mouth in the morning. 90 Tablet 3 06/27/2022 Active amLODIPine Besylate 5 MG Oral Tablet (Norvasc)Indications: HTN, goal below 140/90,Intermittent lightheadedness TAKE 1 TABLET EVERY MORNING 90 Tablet 1 10/03/2022 Active Albuterol Sulfate HFA 108 (90 Base) MCG/ACT Inhalation Aerosol SolutionIndications:M ild persistent asthma without complication USE 2 INHALATIONS ORALLY EVERY 4 HOURS NEEDED FORWHEEZING 54 g 3 11/02/2022 Active Atorvastatin Calcium 10 MG Oral Tablet (Lipitor)Indications: Mixed hyperlipidemia Take 1 Tablet by mouth in the morning. 90 Tablet 3 12/07/2022 Active Montelukast Sodium 10 MG Oral Tablet (Singulair)Indication s:Allergic rhinitis due to pollen, unspecified seasonality TAKE 1 TABLET BEFORE BEDTIME 90 Tablet 3 12/20/2022 Active traMADol HCl 50 MG Oral Tablet (Ultram)Indications:H ereditary and idiopathic peripheral neuropathy Take 1 Tablet by mouth every 6 hours as needed (pain). 40 Tablet 2 12/22/2022 Active traZODone HCl 50 MG Oral Tablet (Desyrel)Indications: Insomnia TAKE 1 TABLET AT BEDTIME 90 Tablet 3 01/10/2023 Active documented as of this encounter (statuses as of 01/11/2023) Active Problems Problem Noted Date Diagnosed Date 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 Memory change 05/20/2022 Hyperparathyroidism, primary 11/12/2021 History of peptic ulcer disease 11/12/2021 Stage 3a chronic kidney disease 08/11/2020 Mild mitral regurgitation 04/22/2020 Diastolic dysfunction 04/22/2020 High risk for fracture due to osteoporosis by DE XA scan 11/05/2019 Prediabetes 01/14/2019 Overview: Per Prediabetes protocol 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 12/25/2018 Abdominal pain, lower 11/05/20152017 Chronic constipation 11/05/2015 018 Hyperlipidemia with target LDL less than 130 3 12/21/2016 Overview: ICD-10 update of inactive term Osteoporosis 10/29/2010 05/30/2013 Dyslipidemia, goal LDL below 130 07/26/2010 12/26/2011 Insomnia 07/26/2010 05/20/2022 Overview: ICD-10 update of inactive term HYPERTENSION NOS 06/07/2004 07/26/2010 Dyslipidemia, goal to be determined 06/07/2004 07/26/2010 Asthma with severity to be determined 10/08/2002 12/20/2010 Overview: ICD-10 update of inactive term Esophageal reflux 10/08/2002 05/30/2013 Hiatal hernia 12/25/2018 Overview: treated with surgery documented as of this encounter (statuses as of 01/11/2023) Immunizations Name Administration Dates Next Due COVID-19 mRNA, LNP-s, No Pre serve, 2-Dose Series (Pfizer) 04/21/2020,03/31/2020 Pneumococcal Conjugate Vacc, 13 Valent (Prevnar) 09/02/2014 Pneumococcal Polysaccharide PPV23 (Pneumovax) 08/30/2010 SEASONAL INFLUENZA, PF, 6 M & Above, IM , (FLULAVAL or FLUZONE) 10/13/2020,10/29/2019,12/07/2017,12/01 Seasonal Influenza, Quadriva lent Hd (Fluzone Hd) 11/22/2022,11/12/2021 Seasonal Influenza, Quadriva lent, No Preserve, IM 12/24/2015,12/15/2014 Seasonal Influenza, Split, I IV3, With Preserve, Inj 10/22/2013,10/23/2012,11/23/2011,10/29 Seasonal Influenza, Trivalen t, Adjuvanted, 65+ yrs 10/31/2018 TD - Tetanus/Diptheria (ADULT) 07/16/2010 TDAP (age 10 and older)(Boostrix) 11/07/2016 Varicella Zoster Vaccine (Adult) 07/25/2007 Zoster Vaccine Recombinant (Shingrix) 11/21/2019 ,09/13/2019 documented as of this encounter Social History Tobacco Use Types Packs/Day Years Used Date Smoking Tobacco: Former Cigarettes 1 5 Q uit: 02/06/1971 Smokeless Tobacco: Never Alcohol Use Standard Drinks/Week Comments No 0 (1 standard drink = 0.6 oz pur e alcohol) PHQ-2 Answer Date Recorded PHQ Adult Total Score 0 05/06/2022 Hunger Vital Sign Answer Date Recorded Within the past 12 months, y ou worried that your food would run out before you got the money to buy more. Never true 05/07/19 23 Within the past 12 months, t he food you bought just didn't last and you didn't have money to get more. Never true 05/06/2022 Sex and Gender Information Value Date Recorded Sex Assigned at Female 06/21/2018 7:57 AM EDT Gender Identity Female 06/21/2018 7:57 AM EDT Sexual Orientation Straight 06/21/2018 7: 57 AM EDT Job Start Date Occupation Industry Not on file Not on file Not on file documented as of this encounter Functional Status Functional Status Response Date of Assess ment Are you deaf or do you have serious difficulty h earing? No 05/07/2022 Are you blind or do you have serious difficulty seeing, even when wearing glasses? No 05/07/2022 Do you have serious difficul ty walking or climbing stairs? (5 years old or older) Yes 05/07/2022 Do you have difficulty dress ing or bathing? (5 years old or older) Yes 05/07/2022 Because of a physical, menta l, or emotional condition, do you have difficulty doing errands alone such as visiting a doctor s office or shopping? (15 years old or older) Yes 05/08/19 Cognitive Status Response Date of Assessm ent Because of a physical, menta l, or emotional condition, do you have serious difficulty concentrating, remembering, or making decisions? (5 years old or older) Yes 05/07/2022 documented as of this encounter Plan of Treatment Upcoming Encounters Date Type Department Care Team (Late st Contact Info) Description 02/23/2023 4:10 PM EST Office Visit Neurology [facility] [address] [place] [address] Melia Avery PA-C [address] [place] [address] 03/17/2023 9:00 AM EST Office Visit Neurology [facility] [address] [place] [address] [address] Alejandro Oshea, DO [address] [place] [address] 05/25/2023 1:40 PM EDT Office Visit Family Practice [facility] [address] [place] [address] Kathy Seweney MD [address] [place] [address] [address] 06/12/2023 1:00 PM EDT Office Visit Dermatology [facility] [address] [place] [address] [address] Samira Godoy MD [address] [place] [address] [address] 01/09/2024 10:00 AM EST Laboratory Laboratory [facility] [place] [address] [place] [id number] [place], [place] [facility] [address] [facility] [place] [address] 01/16/2024 12:30 PM EST Office Visit Hematology/Oncology [facility] [place] [address] [place] [address] Bindu Jones MD [address] [place] [address] Pending Results Name Type Priority Associated Diagnoses Date /Time COMPREHENSIVE METABOLIC PANEL Lab Routine Leukocytosis, unspecified type History of B-cell lymphoma 01/11/2023 11:16 AM EST LD Lab Routine Leukocytosis, unspecified type History of B-cell lymphoma 01/11/2023 11:16 AM EST [id number], SERUM Lab Routine Leukocytosis, unspecified type History of B-cell lymphoma 01/11/2023 11:16 AM EST PHOSPHORUS Lab Routine Hypophosphatemia 01/11/2023 11:16 AM EST Health Maintenance Due Date Last Done Comments *BISPHONATE OR OTHER ACCEPTABLE MEDICATION NEEDED FOR OSTEOPOROSIS (REFER TO SMARTSET #1146) 05/09/2022 COVID-19 Vaccine ( season) 2022 04/21/2020, 03/31/2020 Albumin/Creatinine Ratio 11/12/2022 11/12/2021, 06/06 Depression Screening 05/07/2023 05/06/2022, 09/03/19 15 CKD PHOS USE SMARTSET 03070 05/09/2023 05/08/2022, 0 10/13/2020 CKD HGB USE SMARTSET 55576 05/21/202301/11, 01/11/2023, 05/20/2022, Additional history exists GFR 05/24/2023 11/22/2022, 05/07, 05/09/2022, Additional history exists DXA Scan 11/11/2023 11/10/2021, 10/08, 07/27/2015, Additional history exists HbA1c 11/23/2023 11/22/2022, 08/2021, 10/13/2020, Additional history exists COLONOSCOPY-EVERY 5 YRS AGES 18-100 07/08/2026 07/08/2021, 07/08/2021, 11/19/2015, Additional history exists DTaP,Tdap,and Td Vaccines (2 - Td or Tdap) 11/07/2026 11/07/2016, 07/16/2010 Pneumococcal Vaccine: 65+ Years Completed 09/02/2014, 08/30/2010 Zoster Vaccines Completed 11/21/2019, 08/2019, 07/25/2007 VITAMIN D LEVEL ONCE IN A LIFETIME-USE SMARTSET# 45094 Completed 10/13/2020, 12/26/2019, 06/21/2018, Additional history exists Influenza Vaccine (FLU shot) Completed , 11/12/2021, 10/13/2020, Additional history exists GARDASIL-HPV IMMUNIZATION SERIES Aged Out No longer eligible based on patient's age to complete this topic Hepatitis B Aged Out No longer eligi ble based on patient's age to complete this topic MENINGOCOCCAL (MENACTRA/MENVEO) Aged Out No longer eligible based on patient's age to complete this topic documented as of this encounter Medical Devices Implanted Type Area Taper Operator Device Identifier Shelf Expiration Date Model / Serial / Lot Alloderm 2x4 Sheet [id number] (8 Units) - [id number] Implanted:Qty : 8 on 11/15/2010 at [place] [facility] [place] - Human N/A: Esophagus [employer] 05/06/2012 [id number] / / [id number] documented as of this encounter Procedures Procedure Name Priority Date/Time Associated Diagnosis Comments DIFFERENTIAL, AUTOMATED Routine 01/11/2023 11:16 AM EST Sepsis without acute organ dysfunction, due to unspecified organism (HCC) CBC Routine 01/11/2023 11:16 AM EST Sepsis without acute organ dysfunction, due to unspecified organism (HCC) CBC Routine 01/11/2023 11:16 AM EST Sepsis without acute organ dysfunction, due to unspecified organism (HCC) documented in this encounter Results * (ABNORMAL) DIFFERENTIAL, AUTOMATED (01/11/2023 11:16 AM EST) WBC 12.46(H) 4.00 - 10.80 K/uL 01/11/2023 11:30 AM EST [facility] 56-02 Neutrophils % 77.3(H) 40.0 - 75.0 % 01/11/2023 11:30 AM EST [facility] 56-02 Lymphocytes % 15.0(L) 18.0 - 42.0 % 01/11/2023 11:30 AM [facility] 56-02 Monocytes % 6.2 1.0 - 11.0 % 01/11/2023 11:30 AM EST [facility] 56-02 Eosinophils % 0.9 0.0 - 6.0 % 01/11/2023 11:30 AM [facility] 56-02 Basophils % 0.6 0.0 - 2.0 % 01/11/2023 11:30 AM [facility] 56-02 Absolute Neutrophils 9.63(H) 1.80 - 7.70 K/uL 01/11/2023 11:30 AM [facility] 56-02 Absolute Lymphocytes 1.87 1.00 - 4.80 K/ul 01/11/2023 11:30 AM [facility] 56-02 Absolute Monocytes 0.77 0.00 - 1.10 K/uL 01/11/2023 11:30 AM [facility] 56-02 Absolute Eosinophils 0.11 0.00 - 0.70 K/uL 01/11/2023 11:30 AM [facility] 56-02 Absolute Basophils 0.08 0.00 - 0.20 K/uL 01/11/2023 11:30 AM [facility] 56-02 Blood Venous blood specimen / Unknown Venipuncture / Unknown 01/11/2023 11:16 AM EST 01/11/2023 11:16 AM EST [facility] [place] BLOOD ORDERABLES [facility] 56-02 [address] [place] [address] * (ABNORMAL) CBC (01/11/2023 11:16 AM EST) WBC 12.46(H) 4.00 - 10.80 K/uL 01/11/2023 11:30 AM EST [place] [address] RBC 5.10 3.85 - 5.15 M/uL 01/11/2023 11:30 AM EST [place] [address] HGB 14.1 12.0 - 15.3 g/dL 01/11/2023 11:30 AM EST [place] [address] HCT 43.8 36.0 - 45.2 % 01/11/2023 11:30 AM EST [place] [address] MCV 85.9 81.5 - 97.5 fL 01/11/2023 11:30 AM EST [place] [address] MCH 27.6 27.0 - 34.0 pg 01/11/2023 11:30 AM EST [place] [address] MCHC 32.2 32.0 - 36.0 g/dL 01/11/2023 11:30 AM EST [place] [address] RDW 14.9 11.5 - 15.5 % 01/11/2023 11:30 AM [place] [address] PLT 270 140 - 400 K/uL 01/11/2023 11:30 AM [place] [address] MPV 8.9 6.6 - 11.1 fL 01/11/2023 11:30 AM [place] [address] Blood Venous blood specimen / Unknown Venipuncture / Unknown 01/11/2023 11:16 AM EST 01/11/2023 11:16 AM EST [facility] [place] [facility] BLOOD ORDERABLES [facility] [address] [place] [address] documented in this encounter Visit Diagnoses Diagnosis Sepsis without acute organ dysfunction, due to unspecified organism (HCC) Hypercalcemia Leukocytosis, unspecified type History of B-cell lymphoma Hypophosphatemia Disorders of phosphorus metabolism documented in this encounter Advance Directives Documents on File Type Date Recorded Patient Inspector Multifocal Lens Expl anation Advance Directives and Living Will 05/05/2020 ADVANCE DIRECTIVE / LIVING WILL Power of Chief Operations Officer 05/05/2020 POWER OF A [employer] Latest Code Status on File Code Status Date Activated Date Inactivated Comments Full Code 05/07/2022 10:14 PM 05/09/2022 7:04 PM This o rder reflects the patients wishes and were consensually agreed upon. Question Answer Comments Discussion of Advance Directives occurred with: Patient And Family Code Status History Code Status Date Activated Date Inactivated Comments Full Code 11/15/2010 12:58 PM 11/18/2010 7:21 PM Th is order reflects the patients wishes and were consensually agreed upon. Full Code 11/15/2010 8:42 AM 11/15/2010 12:58 PM Th is order reflects the patients wishes and were consensually agreed upon. Care Teams Historic Sites Supervisor Relationship Specialty Start Date End Date Kathy Sweeney MD [address] [place] [address] PCP - General Family Medicine 11/22/22 documented as of this encounter
--- OUTSIDE RECORDS SUMMARY | 2023-03-19 10:54 | External Medical Summary | Summary of Care ---
Author Name Unknown Organization [facility] Address [address] [place] [address] Phone [phone] Care Team Providers Care Metal Fabricator Apprentice Name Role Phone Kathy Sweeney MD Primary Care Provider [phone] Reason for Visit * Reason Onset Date Comments Medication Refill 01/24/2023 Encounter Details Date Type Department Care Team (Late st Contact Info) Description 01/24/2023 Refill Family Practice [facility] [address] [facility] [place] [address] Kathy Sweeney MD [address] [place] [address] HTN, goal below 140/90 Allergies Active Allergy Reactions Criticality Noted Date Comments Aspirin Anaphylaxis High 12/21/2016 Lip swelling Diphenhydramine Hcl Edema face/lips/tongue High 08/07 Ibuprofen Edema face/lips/tongue High 10/08/2002 Penicillins Unknown 10/08/2002 Red Dye Edema face/lips/tongue,Hives High 09/13/2005 documented as of this encounter (statuses as of 01/26/2023) Medications Medication Sig Dispensed Refills Start Date End Date Status polyethylene glycol 3350 (MIRALAX) 255 gram powderIndications:Ir ritable bowel syndrome with constipation Take 17 g by mouth as needed for Constipation. Dissolve one heaping tablespoon in 8 ounces of water or juice. 1 Bottle 2 12/25/2018 Active Cetirizine HCl 10 MG Oral Tablet Take 1 Tablet by mouth in the morning. 90 Tablet 3 06/27/2022 Active amLODIPine Besylate 5 MG Oral Tablet (Norvasc)Indications :HTN, goal below 140/90,Intermittent lightheadedness TAKE 1 TABLET EVERY MORNING 90 Tablet 1 10/03/2022 Active Albuterol Sulfate HFA 108 (90 Base) MCG/ACT Inhalation Aerosol SolutionIndications: Mild persistent asthma without complication USE 2 INHALATIONS ORALLY EVERY 4 HOURS NEEDED FORWHEEZING 54 g 3 11/02/2022 Active Atorvastatin Calcium 10 MG Oral Tablet (Lipitor)Indications :Mixed hyperlipidemia Take 1 Tablet by mouth in the morning. 90 Tablet 3 12/07/2022 Active Montelukast Sodium 10 MG Oral Tablet (Singulair)Indicatio ns:Allergic rhinitis due to pollen, unspecified seasonality TAKE 1 TABLET BEFORE BEDTIME 90 Tablet 3 12/20/2022 Active traMADol HCl 50 MG Oral Tablet (Ultram)Indications: Hereditary and idiopathic peripheral neuropathy Take 1 Tablet by mouth every 6 hours as needed (pain). 40 Tablet 2 12/22/2022 Active traZODone HCl 50 MG Oral Tablet (Desyrel)Indications :Insomnia TAKE 1 TABLET AT BEDTIME 90 Tablet 3 01/10/2023 Active Lisinopril 20 MG Oral Tablet (Prinivil)Indication s:HTN, goal below 140/90 Take 1 Tablet by mouth in the morning. 90 Tablet 3 01/26/2023 Active Lisinopril 20 MG Oral Tablet (Prinivil)Indication s:HTN, goal below 140/90 Take by mouth 1 Tablet in the morning. 90 Tablet 3 11/12/2021 3 Discontinu ed(Refill) documented as of this encounter (statuses as of 01/26/2023) Active Problems Problem Noted Date Diagnosed Date [...] as of this encounter (statuses as of 01/26/2023) Resolved Problems Problem Noted Date Diagnosed Date [...] as of this encounter (statuses as of 01/26/2023) Immunizations Name Administration Dates Next Due COVID-19 mRNA, LNP-s, No Pre serve, 2-Dose Series (Pfizer) 04/21/2020,03/31/2020 Pneumococcal Conjugate Vacc, 13 Valent (Prevnar) 09/02/2014 Pneumococcal Polysaccharide PPV23 (Pneumovax) 08/30/2010 Seasonal Influenza, PF, 6 M & above, IM , (FluLaval or Fluzone) 10/13/2020,10/29/2019,12/07/2017,12/01 Seasonal Influenza, Quadriva lent Hd (Fluzone [...] Yes 05/07/2022 documented as of this encounter Miscellaneous Notes * Telephone Encounter - Kelsi Benitez III, MD - 01/26/2023 11:22 AM ESTSigned Prescriptions: Disp Refills Lisinopril 20 MG Oral Tablet (Prinivil) 90 Tab*3 Sig: Take 1 Tablet by mouth in the morning.Authorizing Provider: KELSI BENITEZ III * Telephone Encounter - Juju Farrell [facility] - 01/26/2023 8:01 AM EST Pending Prescriptions: Disp Refills Lisinopril 20 MG Oral Tablet (Prinivil) 90 Tab*3 Sig: Take 1 Tablet by mouth in the morning. * Telephone Encounter - Juju Farrell [facility] - 01/26/2023 8:00 AM EST Not yet authorized by new PCP. Please issue if appropriate. Thank you, Juju Farrell, PharmD Clinical Pharmacist [facility] ([facility]) (formerly Telepharmacy) 01/26/23 8:01 AM [phone] * Telephone Encounter - Juju Farrell [facility] - 01/26/2023 8:00 AM EST Did you pend patient's preferred pharmacy and medication before forwarding?yes Pharmacy: [facility] Pending Prescriptions: Disp Refills Lisinopril 20 MG Oral Tablet (Prinivil) 90 Tab*3 Sig: Take 1 Tablet by mouth in the morning. Last Visit: 10/21/2022 (in office), 01/30/2020 (telemedicine) Next Visit: Visit date not found If no future appointments scheduled, and last appointment is greater than a year ago, please schedule patient for a follow-up appointment Last date the medication was ordered: 11/12/21 Is this request for a controlled substance?No Urine Drug Screen: Results for orders placed or performed in visit on 01/14/22 PAIN MANAGEMENT DRUG PANEL, URINE W/ INTERPRETATION Result Value Compliance Interpretation Based on the medication information provided: The presence of tramadol and o-desmethyltramadol is CONSISTENT with tramadol use. Amphetamines Screen, U Negative Benzodiazepines Screen, U Negative Cannabinoids Screen, U Negative Cocaine Metabolite Screen, U Negative Fentanyl Screen, U Negative Hydrocodone Screen, U Negative Methadone Metabolite Screen, U Negative Morphine/Codeine Screen, U Negative Oxycodone Screen, U Negative Valid Interpretation Normal Creatinine, U 121 Narrative Cutoff Concentrations: Drug Level Amphetamines 500 ng/mL Benzodiazepines 100 ng/mL Cannabinoids 50 ng/mL Cocaine Metabolite 150 ng/mL Fentanyl 1 ng/mL Hydrocodone / Hydromorphone 300 ng/mL Methadone Metabolite 100 ng/mL Morphine / Codeine 300 ng/mL Oxycodone / Oxymorphone 100 ng/mL Screening results are presumptive and can only be used for medical purposes. Confirmatory testing is available upon request. *Note: Due to a large number of results and/or encounters for the requested time period, some results have not been displayed. A complete set of results can be found in Results Review. Patient Phone Numbers Labs: Lab Results Component Value Date/Time CREAT 0.6 01/11/2023 11:16 AM CREAT 0.9 12/26/2019 12:12 PM POTASSIUM 4.2 01/11/2023 11:16 AM POTASSIUM 4.1 12/26/2019 12:12 PM TSH 0.69 04/22/2022 01:26 PM TSH 1.77 10/01/2019 10:32 AM LDLCALC 93 11/22/2022 11:57 AM LDLCALC 114 10/01/2019 10:32 AM LDLDIRECT NOT APPLICABLE 10/01/2019 10:32 AM LDLDIRECT 232 (H) 01/06/2004 09:30 AM ALT 17 01/11/2023 11:16 AM ALT 23 12/26/2019 12:12 PM HGBA1C 5.9 (H) 11/22/2022 11:57 AM HGBA1C 5.9 (H) 10/01/2019 10:32 AM documented in this encounter Plan of Treatment Upcoming Encounters Date Type Department Care Team (Late st Contact Info) Description 02/23/2023 4:10 PM EST Office Visit [facility] [address] [place] [address] Melia Avery PA-C [address] [place] [address] 03/17/2023 9:00 AM EST Office Visit Neurology [facility] [address] [place] [address] Alejandro Oshea, DO [address] [place] [place] [address] 05/25/2023 1:40 PM EDT Office Visit Family Practice [facility] [address] [place], [place] [address] Kathy Sweeney MD [address] [facility] [place], [place] [address] 06/12/2023 1:00 PM EDT Office Visit Dermatology [facility] [address] [place] [address] Samira Godoy MD [address] [facility] [place], [place] [address] 01/09/2024 10:00 AM EST Laboratory Laboratory [facility] [address] [place], [place] [id number] [facility] Lab [facility] [address] [facility] [place], [place] [address] 01/16/2024 12:30 PM EST Office Visit Hematology/Oncology [facility] [address] [facility] [address] [place], [place] [address] Bindu Jones MD [address] [facility] [place], [place] [address] Health Maintenance Due Date Last Done Comments *BISPHONATE OR OTHER ACCEPTABLE MEDICATION NEEDED FOR OSTEOPOROSIS (REFER TO SMARTSET #1146) 05/09/2022 COVID-19 Vaccine ( season) 2022 04/21/2020, 03/31/2020 Albumin/Creatinine Ratio 11/12/2022 11/12/2021, 06/06 Depression Screening 05/07/2023 05/06/2022, 09/03/19 15 GFR 07/13/2023 01/11/2023, 11/06, 05/20/2022, Additional history exists DXA Scan 11/11/2023 11/10/2021, 10/08, 07/27/2015, Additional history exists HbA1c 11/23/2023 11/22/2022, 08/2021, 10/13/2020, Additional history exists CKD HGB USE SMARTSET 85371 01/12/202401/11, 01/11/2023, 05/20/2022, Additional history exists CKD PHOS USE SMARTSET 86279 01/12/202407/2022, 05/08/2022, 10/13/2020 COLONOSCOPY-EVERY 5 YRS AGES 18-100 07/08/2026 07/08/2021, 07/08/2021, 11/19/2015, Additional history exists DTaP,Tdap,and Td Vaccines (2 - Td or Tdap) 11/07/2026 11/07/2016, 07/16/2010 Pneumococcal Vaccine: 65+ Years Completed 09/02/2014, 08/30/2010 Zoster Vaccines Completed 11/21/2019, 08/2019, 07/25/2007 VITAMIN D LEVEL ONCE IN A LIFETIME-USE SMARTSET# 66611 Completed 10/13/2020, 12/26/2019, 06/21/2018, Additional history exists [...] this encounter Medical Devices Implanted Type Area Director Nurses' Registry Device Identifier Shelf Expiration Date Model / Serial / Lot Alloderm 2x4 Sheet [id number] (8 Units) - [id number] Implanted:Qty : 8 on 11[place]15[place]2010 [place] [facility] [place] Human N/A: Esophagus LIFE CELL VICENTA 05/06/2012 [id number] / / [id number] documented as of this encounter Visit Diagnoses Diagnosis HTN, goal below 140/90 Unspecified essential hypertension documented in this encounter Advance Directives Documents on File Type Date Recorded Patient Dog Breeder Expl anation Advance Directives and Living Will 05/05/2020 ADVANCE DIRECTIVE / LIVING WILL Power of Marine Equipment Design Engineer 05/05/2020 POWER OF A TTORNEY MEDICAL Latest [...] and were consensually agreed upon. Care Teams Metal Fabricator Apprentice Relationship Specialty Start Date End Date Kathy Sweeney MD [address] [place] [address] PCP - General Family Medicine 11/22/22 documented as of this encounter
--- OUTSIDE RECORDS SUMMARY | 2023-03-19 10:54 | External Medical Summary | Summary of Care ---
Author Name Unknown Organization [facility] Address [address] [place] [address] Phone [phone] Care Team Providers Care Investment Banking Analyst Name Role Phone Kathy Sweeney MD Primary Care Provider [phone] Reason for Visit * Reason Comments Return Neuro Encounter Details Date Type Department Care Team (Late st Contact Info) Description 02/23/2023 4:10 PM EST Office Visit Neurology [facility] [address] [place] [address] Melia Avery PA-C [address] [place] [address] Memory change*; Hereditary and idiopathic peripheral neuropathy Allergies Active Allergy Reactions Criticality Noted Date Comments Aspirin Anaphylaxis High 12/21/2016 Lip swelling Diphenhydramine Hcl Edema face/lips/tongue High 08/07 Ibuprofen Edema face/lips/tongue High 10/08/2002 Penicillins Unknown 10/08/2002 Red Dye Edema face/lips/tongue,Hives High 09/13/2005 documented as of this encounter (statuses as of 02/23/2023) Medications Medication Sig Dispensed Refills Start Date [...] 01/10/2023 Active Lisinopril 20 MG Oral Tablet (Prinivil)Indications :HTN, goal below 140/90 Take 1 Tablet by mouth in the morning. 90 Tablet 3 01/26/2023 Active NATURAL SUPPLEMENT Take by mouth daily. 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 12/25/2018 Abdominal pain, lower 11/05/20152017 Chronic constipation 11/05/2015 018 Hyperlipidemia with target LDL less than 130 08/21/ 3 12/21/2016 Overview: ICD-10 update of inactive [...] as of this encounter (statuses as of 02/23/2023) Immunizations Name Administration Dates Next Due COVID-19 [...] on file documented as of this encounter Last Filed Vital Signs Vital Sign Reading Time Taken Comments Blood Pressure 142/62 02/23/2023 4:17 PM EST Pulse 91 02/23/2023 4:17 PM EST Temperature 36.7 C (98 F) 02/23/2023 4:17 PM EST Respiratory Rate 18 02/23/2023 4:17 PM EST Oxygen Saturation 95% 02/23/2023 4:17 PM EST Inhaled Oxygen Concentration - - Weight 63.9 kg (140 lb 12.8 oz) 02/23/2023 4:17 PM EST Height - - Body Mass Index 24.94 12/12/2022 12:33 PM EST documented in this encounter Functional Status Functional Status Response [...] Yes 05/07/2022 documented as of this encounter Progress Notes * Melia Avery PA-C - 02/23/2023 4:21 PM EST HISTORY & PHYSICAL EXAMINATION - NEUROLOGY Name: Cherelle Sherman Date: 02/23/2023 Time: 4:22 PM Referring Provider: Armando Arteaga MD Chief Complaint: Chief Complaint Patient presents with Return Neuro This is a 82 year old right handed woman returns today for follow up for memory issues. HPI & Source of HPI The patient and family member son was the historian, and they are reliable. She has had ongoing subtle memory issues. She was treated for a UTI and became very disoriented. She was not taking her medication properly and had taken the antibiotic for the UTI in 2-3 days. One admission was to [facility] and the other was to [facility]. She had an MRI which showed some ventricle enlargement and white matter changes. Her son lives near her and she lost her about 2 years ago which had set her back a bit. She is feeling better about her situation and her son feels she is back to her baseline. They have help coming in the home 8-3 every day and that has been reassuring to her. She was worked up in the past by Dr Bonilla and has known peripheral neuropathy. Her license was sent to the state by her PCP. She has a lot of people to help her get to latter day and groceries and her son helps her with the yard work. She is a non smoker, no EtOH use, minimal caffeine use no other drugs.Denies CP, SOB, abdominal pain, N, V, no incontinence, gait is getting better according to son I have reviewed the patient's medications and allergies, past medical, surgical, social and family history, updating these as appropriate. See Histories section of the electronic medical record for adisplay of this information. Patient Active Problem List Diagnosis Code Allergic rhinitis J30.9 HTN, goal below 140/90 I10 Asthma, mild persistent J45.30 Sjogren's syndrome ([facility]) M35.00 Hereditary and idiopathic peripheral neuropathy G60.9 IBS (irritable bowel syndrome) K58.9 Gastroesophageal reflux disease with esophagitis K21.00 MEDICATION USE AGREEMENT [id number] History of B-cell lymphoma Z85.72 Mixed hyperlipidemia E78.2 Leukocytosis D72.829 History of recurrent UTIs Z87.440 Prediabetes R73.03 High risk for fracture due to osteoporosis by DEXA scan M81.0 Mild mitral regurgitation I34.0 Diastolic dysfunction I51.89 Stage 3a chronic kidney disease (HCC) N18.31 Hyperparathyroidism, primary ([facility]) E21.0 History of peptic ulcer disease Z87.11 Memory change R41.3 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 yes Current Outpatient Medications Medication Sig Dispense Refill polyethylene glycol 3350 (MIRALAX) 255 gram powder Take 17 g by mouth as needed for Constipation. Dissolve one heaping tablespoon in 8 ounces of water or juice. 1 Bottle 2 Cetirizine HCl 10 MG Oral Tablet Take 1 Tablet by mouth in the morning. 90 Tablet 3 amLODIPine Besylate 5 MG Oral Tablet (Norvasc) TAKE 1 TABLET EVERY MORNING 90 Tablet 1 Albuterol Sulfate HFA 108 (90 Base) MCG/ACT Inhalation Aerosol Solution USE 2 INHALATIONS ORALLY EVERY 4 HOURS NEEDED FORWHEEZING 54 g 3 Atorvastatin Calcium 10 MG Oral Tablet (Lipitor) Take 1 Tablet by mouth in the morning. 90 Tablet 3 Montelukast Sodium 10 MG Oral Tablet (Singulair) TAKE 1 TABLET BEFORE BEDTIME 90 Tablet 3 traMADol HCl 50 MG Oral Tablet (Ultram) Take 1 Tablet by mouth every 6 hours as needed (pain). 40 Tablet 2 traZODone HCl 50 MG Oral Tablet (Desyrel) TAKE 1 TABLET AT BEDTIME 90 Tablet 3 Lisinopril 20 MG Oral Tablet (Prinivil) Take 1 Tablet by mouth in the morning. 90 Tablet 3 NATURAL SUPPLEMENT Take by mouth daily. Uqora No current facility-administered medications for this visit. Review of patient's allergies indicates: Allergen Reactions Aspirin Anaphylaxis Lip swelling Benadryl [Diphenhydramine Hcl] Edema face/lips/tongue Ibuprofen Edema face/lips/tongue Red Dye Edema face/lips/tongue and Hives Penicillins Unknown Review of Systems: A total number of 10 systems were reviewed pertinent negative and positives not addressed in HPI are listed in the following review. Physical Exam: Constitutional: BP 142/62 | Pulse 91 | Temp 36.7 C (98 F) (Tympanic) | Resp 18 | Wt 63.9 kg (140 lb 12.8 oz) | SpO2 95% | BMI 24.94 kg/m | BSA 1.69 m , appearance nourished and healthy Ears, Nose, Mouth and Throat: mucous membranes moist, no injection and skin normal, eyes normal Cardiovascular: normal S-1 and S-2 and regular rate and rhythm Respiratory: clear to auscultation (CTA) and no rales, ronchi or wheeze Musculoskeletal: no peripheral edema Skin: normal and intact Eyes: extraocular muscles intact (EOMI) and pupils equal, round and reactive to light (PERRL) NEUROLOGIC EXAMINATION: Mental status: Alert and interactive Oriented to person Speech fluent with no evidence of aphasia, does repeat herself at times Cranial Nerves Normal findings for Cranial Nerves II - XII Coordination: rapid alternating movements are intact: Bilateral, on [id number], and no abnormal or extraneousmovements Gait/Stance: Posture normal. Gait normal: with steady with steps, base, arm swing, and tandem gait. Motor: Negative for pronator drift of out stretched arms with eyes closed. Strength: Normal - 5/5 all extremities LABORATORY: Recent labs reviewed Review of prior Studies: No recent imaging available. Impression: Cherelle Sherman is a 82 year old woman with a history of memory issues. Her neurologic examination today reveals no new focal deficit. The history and examination are suggestive of diagnosis/problem list. Testing and Referrals ordered: none ICD-10-CM 1. Memory change R41.3 2. Hereditary and idiopathic peripheral neuropathy G60.9 Return in 6 months or sooner if needed- MME at next visit Discussed aricept and namenda they do not want to start them had a lot of GI issues in the past Keep mentally and physically as active as possible - she reads a book a day Continue in home wrap around care Fall precautions PCP for medical management Call with questions concerns Medical Decision Making (determined by lowest of 2 of 3 elements): The medical decision making element of the number and complexity of problems addressed included at least 2 or more stable chronic illnesses (level 4). The medical decision making element of risk of complications, morbidity, and mortality of patient management is moderate (level 4) due to prescription drug management (moderate risk). The medical decision making element of the amount and complexity of data reviewed and analyzed included an independent interpretation of a test (level 4 at least). When 2 of 3 reach level 4, then this element is considered extensive (level 5). I personally spent a total of 30 minutes. This time was for a new office or established visit and was on the same calendar day. Education / Consultation - Topics covered as I spent 20 minutes, which is greater than 50% of this visit, counseling the patient on: Diagnostic Results Prognosis Importance of compliance with chosen treatment options Risk factor reductions Patient and family education Consulted with physician: Blu Murphy DO was available for direct supervision. Copy of note sent to PCP and Referring Provider. Total time of visit: 30 minutes. Melia Avery PA-C Neurology [facility] [place] [address] [address] [place] [address] 02/23/2023 4:22 PM documented in this encounter Nursing Notes * Suzie Arriaga LPN - 02/23/2023 4:15 PM EST Chief Complaint Patient presents with Return Neuro Went over medications with patient's son. documented in this encounter Plan of Treatment Upcoming Encounters Date Type Department Care Team (Late st Contact Info) Description 05/25/2023 1:40 PM EDT Office Visit Family Practice [facility] [place] [address] [place] [address] Kathy Sweeney MD [address] [place] [address] 06/12/2023 1:00 PM EDT Office Visit Dermatology [facility] [place] [address] [place] [address] Samira Godoy MD 08/29/2023 4:00 PM EDT Office Visit Neurology [facility] [place] [address] [place] [address] Melia Avery PA-C [address] [place] [address] 01/09/2024 10:00 AM EST Laboratory Laboratory [facility] [place] [address] [place] [phone] [facility] [address] [facility] [place] [address] 01/16/2024 12:30 PM EST Office Visit Hematology/Oncology [facility] [place] [address] [place] [address] [address] Bindu Jones MD [address] [facility] [place] [address] Health Maintenance Due Date Last Done Comments [...] Additional history exists CKD HGB USE SMARTSET 86069 01/12/202401/11, 01/11/2023, 05/20/2022, Additional history exists CKD PHOS USE SMARTSET 35717 01/12/202407/2022, 05/08/2022, 10/13/2020 COLONOSCOPY-EVERY 5 YRS AGES 18-100 07/08/2026 07/08/2021, 07/08/2021, 11/19/2015, Additional history exists DTaP,Tdap,and Td Vaccines (2 - Td or Tdap) 11/07/2026 11/07/2016, 07/16/2010 Pneumococcal Vaccine: 65+ Years Completed 09/02/2014, 08/30/2010 Zoster Vaccines Completed 11/21/2019, 08/2019, 07/25/2007 VITAMIN D LEVEL ONCE IN A LIFETIME-USE SMARTSET# [id number] Completed 10/13/2020, 12/26/2019, 06/21/2018, Additional history exists [...] this encounter Medical Devices Implanted Type Area Religion Instructor Device Identifier Shelf Expiration Date Model / Serial / Lot Alloderm 2x4 Sheet [id number] (8 Units) - [id number] Implanted:Qty : 8 on 11/15/2010 [place] [facility] [place] - Human N/A: Esophagus LIFE CELL VICENTA 05/06/2012 [id number] / / [id number] documented as of this encounter Visit Diagnoses Diagnosis Memory change- Primary Memory loss Hereditary and idiopathic peripheral neuropathy Unspecified hereditary and idiopathic peripheral neuropathy documented in this encounter Advance Directives Documents on File Type Date Recorded Patient Transportation Economics Teacher Expl anation Advance Directives and Living Will 05/05/2020 ADVANCE DIRECTIVE / LIVING WILL Power of Rn Orthopaedic 05/05/2020 POWER OF A TTORNEY MEDICAL Latest [...] and were consensually agreed upon. Care Teams Investment Banking Analyst Relationship Specialty Start Date End Date Kathy Sweeney MD [address] [place] [address] PCP - General Family Medicine 11/22/22 documented as of this encounter"
--- OUTSIDE RECORDS SUMMARY | 2023-03-19 10:55 | External Medical Summary | Summary of Care ---
Author Name Unknown Organization [facility] Address [address] [place] [address] Phone [phone] Care Team Providers Care Machine Fancy Stitcher Name Role Phone Kathy Sweeney MD Primary Care Provider [phone] Reason for Visit * Reason Onset Date Comments Medication Refill 12/06/2022 Encounter Details Date Type Department Care Team (Late st Contact Info) Description 12/06/2022 Refill Family Practice [facility] [address] [place] [address] Armando Arteaga MD [address] [place] [address] Mixed hyperlipidemia Allergies Active Allergy Reactions Criticality Noted Date Comments Aspirin Anaphylaxis High 12/21/2016 Lip swelling Diphenhydramine Hcl Edema face/lips/tongue High 08/07 Ibuprofen Edema face/lips/tongue High 10/08/2002 Penicillins Unknown 10/08/2002 Red Dye Edema face/lips/tongue,Hives High 09/13/2005 documented as of this encounter (statuses as of 12/07/2022) Medications Medication Sig Dispensed Refills Start Date End Date Status polyethylene glycol 3350 (MIRALAX) 255 gram powderIndications:Ir ritable bowel syndrome with constipation Take 17 g by mouth as needed for Constipation. Dissolve one heaping tablespoon in 8 ounces of water or juice. 1 Bottle 2 12/25/2018 Active traZODone HCl 50 MG Oral Tablet (Desyrel)Indications :Insomnia TAKE 1 TABLET AT BEDTIME 90 Tablet 3 11/08/2021 Active Lisinopril 20 MG Oral Tablet (Prinivil)Indication s:HTN, goal below 140/90 Take by mouth 1 Tablet in the morning. 90 Tablet 3 11/12/2021 Active Montelukast Sodium 10 MG Oral Tablet (Singulair)Indicatio ns:Allergic rhinitis due to pollen, unspecified seasonality Take by mouth 1 Tablet before bedtime. 90 Tablet 3 11/12/2021 Active Cetirizine HCl 10 MG Oral Tablet Take 1 Tablet by mouth in the morning. 90 Tablet 3 06/27/2022 Active traMADol HCl 50 MG Oral Tablet (Ultram)Indications: Hereditary and idiopathic peripheral neuropathy Take 1 Tablet by mouth every 6 hours as needed (pain). 40 Tablet 2 08/16/2022 Active amLODIPine Besylate 5 MG Oral Tablet [...] the morning. 90 Tablet 3 12/07/2022 Active Atorvastatin Calcium 10 MG Oral Tablet (Lipitor)Indications :Mixed hyperlipidemia TAKE 1 TABLET EVERY MORNING 90 Tablet 3 11/28/2022 3 Discontinu ed(Refill) documented as of this encounter (statuses as of 12/07/2022) Active Problems Problem Noted Date Diagnosed Date [...] as of this encounter (statuses as of 12/07/2022) Resolved Problems Problem Noted Date Diagnosed Date [...] as of this encounter (statuses as of 12/07/2022) Immunizations Name Administration Dates Next Due COVID-19 [...] or making decisions? (5 years old or older Yes 05/07/2022 documented as of this encounter Miscellaneous Notes * Telephone Encounter - Jignesh Velez RP - 12/07/2022 12:59 PM EDT Signed Prescriptions: Disp Refills Atorvastatin Calcium 10 MG Oral Tablet (Li*90 Tab*3 Sig: Take 1Tablet by mouth in the morning.Authorizing Provider: Kay SWEENEY User: JIGNESH VELEZ * Telephone Encounter - Jignesh Velez RP - 12/07/2022 12:58 PM EDT Pharmacy states they did not receive transmitted script from 11/28/22. Pharmacist resending again. Thank You Jignesh Velez PharmD Clinical Pharmacist [facility] ([facility] (formerly Telepharm[facility]) [phone] / [phone] 12/07/2022, 12:59 PM documented in this encounter Plan of Treatment Upcoming Encounters Date Type Department Care Team (Late st Contact Info) Description 01/04/2023 10:30 AM EST Laboratory Laboratory [facility] [place] [address] [place] [phone] [place], Lab [facility] [address] [place] [address] 01/11/2023 11:00 AM EST Office Visit Hematology/Oncology [facility] [place] [address] [place] [address] Bindu Jones MD [address] [place] [address] 02/23/2023 4:10 PM EST Office Visit Neurology [facility] [address] [place] [address] Melia Avery PA-C [address] [place] [address] 03/17/2023 9:00 AM EST Office Visit Neurology [facility] [place] [address] [place] [address] Alejandro Oshea, DO [address] [place] [address] 05/25/2023 1:40 PM EDT Office Visit Family Practice [facility] [place] [address] [place] [address] Kathy Sweeney MD [address] [place] [address] 06/12/2023 1:00 PM EDT Office Visit Dermatology [facility] [address] [place] [address] Samira Godoy MD [address] [place] [address] Health Maintenance Due Date Last Done Comments *BISPHONATE OR OTHER ACCEPTABLE MEDICATION NEEDED FOR OSTEOPOROSIS (REFER TO SMARTSET #1144) 05/09/2022 COVID-19 Vaccine ( season) 2022 04/21/2020, 03/31/2020 Albumin/Creatinine Ratio 11/12/2022 11/12/2021, 06/06 Depression Screening 05/07/2023 05/06/2022, 09/03/19 15 CKD PHOS USE SMARTSET 29078 05/09/2023 05/08/2022, 0 10/13/2020 CKD HGB USE SMARTSET 86315 05/21/202305/20, 05/20/2022, 05/09/2022, Additional history exists GFR 05/24/2023 11/22/2022, 05/07, [...] D LEVEL ONCE IN A LIFETIME-USE SMARTSET# 22761 Completed 10/13/2020, 12/26/2019, 06/21/2018, Additional history exists [...] this encounter Medical Devices Implanted Type Area Booker Device Identifier Shelf Expiration Date Model / Serial / Lot Alloderm 2x4 Sheet [id number] (8 Units) - [id number] Implanted:Qty : 8 on 11/15/2010 at [place] [facility] [place] Tissue - Human N/A: Esophagus LIFE CELL VICENTA 05/06/2012 [id number] / / [id number] documented as of this encounter Visit Diagnoses Diagnosis Mixed hyperlipidemia documented in this encounter Advance Directives Documents on File Type Date Recorded Patient Inspector Sheet Metal Parts Expl anation Advance Directives and Living Will 05/05/2020 ADVANCE DIRECTIVE / LIVING WILL Power of Water Filterer Helper 05/05/2020 POWER OF A TTORNEY MEDICAL Latest [...] and were consensually agreed upon. Care Teams Machine Fancy Stitcher Relationship Specialty Start Date End Date Kathy Sweeney MD [address] [place] [address] PCP - General Family Medicine 11/22/22 documented as of this encounter
--- OUTSIDE RECORDS SUMMARY | 2023-03-19 10:55 | External Medical Summary | Summary of Care ---
Author Name Unknown Organization [facility] Address [address] [place] [address] Phone [phone] Care Team Providers Care Catering Truck Operator Name Role Phone Kathy Sweeney MD Primary Care Provider [phone] Reason for Visit * Reason Comments eRx-Medication Refill Encounter Details Date Type Department Care Team (Late st Contact Info) Description 01/10/2023 Refill General Internal Medicine [facility] 200 [facility] [place] [address] Armando Arteaga MD [address] [place] [address] Insomnia Allergies Active Allergy Reactions Criticality Noted Date Comments Aspirin Anaphylaxis High 12/21/2016 Lip swelling Diphenhydramine Hcl Edema face/lips/tongue High 08/07 Ibuprofen Edema face/lips/tongue High 10/08/2002 Penicillins Unknown 10/08/2002 Red Dye Edema face/lips/tongue,Hives High 09/13/2005 documented as of this encounter (statuses as of 01/10/2023) Medications Medication Sig Dispensed Refills Start Date End Date Status polyethylene glycol 3350 (MIRALAX) 255 gram powderIndications:Ir ritable bowel syndrome with constipation Take 17 g by mouth as needed for Constipation. Dissolve one heaping tablespoon in 8 ounces of water or juice. 1 Bottle 2 9 Active Lisinopril 20 MG Oral Tablet (Prinivil)Indication s:HTN, goal below 140/90 Take by mouth 1 Tablet in the morning. 90 Tablet 3 2 Active Cetirizine HCl 10 MG Oral Tablet Take 1 Tablet by mouth in the morning. 90 Tablet 3 3 Active amLODIPine Besylate 5 MG Oral Tablet (Norvasc)Indications :HTN, goal below 140/90,Intermittent lightheadedness TAKE 1 TABLET EVERY MORNING 90 Tablet 1 3 Active Albuterol Sulfate HFA 108 (90 Base) MCG/ACT Inhalation Aerosol SolutionIndications: Mild persistent asthma without complication USE 2 INHALATIONS ORALLY EVERY 4 HOURS NEEDED FORWHEEZING 54 g 3 3 Active Atorvastatin Calcium 10 MG Oral Tablet (Lipitor)Indications :Mixed hyperlipidemia Take 1 Tablet by mouth in the morning. 90 Tablet 3 3 Active Montelukast Sodium 10 MG Oral Tablet (Singulair)Indicatio ns:Allergic rhinitis due to pollen, unspecified seasonality TAKE 1 TABLET BEFORE BEDTIME 90 Tablet 3 3 Active traMADol HCl 50 MG Oral Tablet (Ultram)Indications: Hereditary and idiopathic peripheral neuropathy Take 1 Tablet by mouth every 6 hours as needed (pain). 40 Tablet 2 3 Active traZODone HCl 50 MG Oral Tablet (Desyrel)Indications :Insomnia TAKE 1 TABLET AT BEDTIME 90 Tablet 3 3 Active traZODone HCl 50 MG Oral Tablet (Desyrel)Indications :Insomnia TAKE 1 TABLET AT BEDTIME 90 Tablet 3 2 01/11/20 23 Discontinued documented as of this encounter (statuses as of 01/10/2023) Active Problems Problem Noted Date Diagnosed Date [...] as of this encounter (statuses as of 01/10/2023) Resolved Problems Problem Noted Date Diagnosed Date [...] as of this encounter (statuses as of 01/10/2023) Immunizations Name Administration Dates Next Due COVID-19 [...] encounter Miscellaneous Notes * Telephone Encounter - Christina Kelsey RPh - 01/10/2023 3:23 PM ESTSigned Prescriptions: Disp Refills traZODone HCl 50 MG Oral Tablet (Desyrel) 90 Tab*3 Sig: TAKE 1 TABLET AT BEDTIMEAuthorizing Provider: ARMANDO ARTEAGA User: CHRISTINA KELSEY documented in this encounter Plan of Treatment Upcoming Encounters Date Type Department Care Team (Late st Contact Info) Description 01/11/2023 11:00 AM EST Office Visit Hematology/Oncology [facility] [place] [address] [place] [address] Bindu Jones MD [address] [place] [address] 02/23/2023 4:10 PM EST Office Visit Neurology [facility] [address] [facility] [address] [place], [place] [address] Melia Avery PA-C [address] [facility] [address] [place], [place] [address] 03/17/2023 9:00 AM EST Office Visit Neurology [facility] [address] [facility] [place] [address] Alejandro Oshea, DO [address] [place] [address] 05/25/2023 1:40 PM EDT Office Visit Family Practice [facility] [address] [facility] [place] [address] Kathy Sweeney MD [address] [facility] [address] [place], [place] [address] 06/12/2023 1:00 PM EDT Office Visit Dermatology [facility] [address] [facility] [place] [address] Samira Godoy MD [address] [facility] [address] [place], [place] [address] Health Maintenance Due Date Last Done Comments *BISPHONATE OR OTHER ACCEPTABLE MEDICATION NEEDED FOR OSTEOPOROSIS (REFER TO SMARTSET #1146) 05/09/2022 COVID-19 Vaccine ( season) 2022 04/21/2020, 03/31/2020 Albumin/Creatinine Ratio 11/12/2022 11/12/2021, 06/06 Depression Screening 05/07/2023 05/06/2022, 09/03/19 15 CKD PHOS USE SMARTSET 85845 05/09/2023 05/08/2022, 0 10/13/2020 CKD HGB USE SMARTSET 14911 05/21/202305/20, 05/20/2022, 05/09/2022, Additional history exists GFR [...] D LEVEL ONCE IN A LIFETIME-USE SMARTSET# 22695 Completed 10/13/2020, 12/26/2019, 06/21/2018, Additional history exists [...] this encounter Medical Devices Implanted Type Area Keno Terminal Operator Device Identifier Shelf Expiration Date Model / Serial / Lot Alloderm 2x4 Sheet [id number] (8 Units) - [id number] Implanted:Qty : 8 on 11/15/2010 at [place] [facility] [place] Tissue - Human N/A: Esophagus LIFE CELL VICENTA 05/06/2012 [id number] / / [id number] documented as of this encounter Visit Diagnoses Diagnosis Insomnia Insomnia, unspecified documented in this encounter Advance Directives Documents on File Type Date Recorded Patient Mental Health Tech Expl anation Advance Directives and Living Will 05/05/2020 ADVANCE DIRECTIVE / LIVING WILL Power of Hot Repairman 05/05/2020 POWER OF A TTORNEY MEDICAL Latest [...] and were consensually agreed upon. Care Teams Catering Truck Operator Relationship Specialty Start Date End Date Kathy Sweeney MD 200 [facility] [place] [address] PCP - General Family Medicine 11/22/22 documented as of this encounter
--- OUTSIDE RECORDS SUMMARY | 2023-03-19 10:55 | External Medical Summary | Summary of Care ---
Author Name Unknown Organization [facility] Address [address] [place] [address] Phone [phone] Care Team Providers Care Plumbing Warehouse Helper Name Role Phone Kathy Sweeney MD Primary Care Provider [phone] Encounter Details Date Type Department Care Team (Late st Contact Info) Description 12/06/2022 Orders Only Outcomes Research Department [address] [place] [address] Rola Langston CHRA [facility] Research Other*[id number] Allergies Active Allergy Reactions Criticality Noted Date Comments Aspirin Anaphylaxis High 12/21/2016 Lip swelling Diphenhydramine Hcl Edema face/lips/tongue High 08/07 Ibuprofen Edema face/lips/tongue High 10/08/2002 Penicillins Unknown 10/08/2002 Red Dye Edema face/lips/tongue,Hives High 09/13/2005 documented as of this encounter (statuses as of 12/06/2022) Medications Medication Sig Dispensed Refills Start Date [...] 11/08/2021 Active Lisinopril 20 MG Oral Tablet (Prinivil)Indications :HTN, goal below 140/90 Take by mouth 1 Tablet in the morning. 90 Tablet 3 11/12/2021 Active Montelukast Sodium 10 MG Oral Tablet (Singulair)Indication s:Allergic rhinitis due to pollen, unspecified seasonality Take [...] 10 MG Oral Tablet (Lipitor)Indications: Mixed hyperlipidemia TAKE 1 TABLET EVERY MORNING 90 Tablet 3 11/28/2022 Active documented as of this encounter (statuses as of 12/06/2022) Active Problems Problem Noted Date Diagnosed Date [...] as of this encounter (statuses as of 12/06/2022) Resolved Problems Problem Noted Date Diagnosed Date [...] as of this encounter (statuses as of 12/06/2022) Immunizations Name Administration Dates Next Due COVID-19 mRNA, LNP-s, No Pre serve, 2-Dose Series (SyndicatePlus) 04/21/2020,03/31/2020 Pneumococcal Conjugate Vacc, 13 Valent (Prevnar) [...] (15 years old or older) Yes 05/08/19 23 Cognitive Status Response Date of Assessm ent Because of a physical, menta l, or emotional condition, do you have serious difficulty concentrating, remembering, or making decisions? (5 years old or older Yes 05/07/2022 documented as of this encounter Plan of Treatment Upcoming Encounters Date Type Department Care Team (Late st Contact Info) Description 01/04/2023 10:30 AM EST Laboratory Laboratory [facility] [address] [place] [phone] Katerina Crum [facility] [address] [place] [address] [address] 01/11/2023 11:00 AM EST Office Visit Hematology/Oncology [facility] [address] [place] [address] [address] Bindu Jones MD [address] [place] [address] 02/23/2023 4:10 PM EST Office Visit Neurology [facility] [address] [place] [address] [address] Melia Avery PA-C [address] [place] [address] [address] 03/17/2023 9:00 AM EST Office Visit Neurology [facility] [address] [place] [address] [address] Alejandro Oshea, [address] [place] [facility] [place] [address] 05/25/2023 1:40 PM EDT Office Visit Family Practice [facility] [address] [place] [address] [address] Kathy Sweeney MD [address] [place] [address] 06/12/2023 1:00 PM EDT Office Visit Dermatology [facility] 200 [facility] [place], [place] [address] Samira Godoy MD 200 [facility], [place] [address] Scheduled Orders Name Type Priority Associated Diagnoses Orde r Schedule MYCODE SUBSEQUENT ADULT Lab Routine My[facility] Research Other*[id number] Every 6 Months for 2 Occurrences starting 12/06/2022 until 12/26/2023 Health Maintenance Due Date Last Done Comments *BISPHONATE OR OTHER ACCEPTABLE MEDICATION NEEDED FOR OSTEOPOROSIS (REFER TO SMARTSET #1146) 05/09/2022 COVID-19 Vaccine ( season) 2022 04/21/2020, 03/31/2020 Albumin/Creatinine Ratio 11/12/2022 11/12/2021, 06/06 Depression Screening 05/07/2023 05/06/2022, 09/03/19 15 CKD PHOS USE SMARTSET 42601 05/09/2023 05/08/2022, 0 10/13/2020 CKD HGB USE SMARTSET 77644 05/21/202305/20, 05/20/2022, 05/09/2022, Additional history exists GFR [...] Completed 09/02/2014, 08/30/2010 Zoster Vaccines Completed 11/21/2019, 08/08/2019, 07/25/2007 VITAMIN D LEVEL ONCE IN A LIFETIME-USE SMARTSET# 94814 Completed 10/13/2020, 12/26/2019, 06/21/2018, Additional history exists [...] this encounter Medical Devices Implanted Type Area Boxing Instructor Device Identifier Shelf Expiration Date Model / Serial / Lot Alloderm 2x4 Sheet [id number] (8 Units) - [id number] Implanted:Qty : 8 on 11/15/2010 at [place] [facility] [place] Tissue - Human N/A: Esophagus LIFE CELL VICENTA 05/06/2012 [id number] / / [id number] documented as of this encounter Visit Diagnoses Diagnosis My[facility] Research Other*[id number] documented in this encounter Advance Directives Documents on File Type Date Recorded Patient Associate Justice Expl anation Advance Directives and Living Will 05/05/2020 ADVANCE DIRECTIVE / LIVING WILL Power of Malt Roaster 05/05/2020 POWER OF A TTORNEY MEDICAL Latest [...] and were consensually agreed upon. Care Teams Plumbing Warehouse Helper Relationship Specialty Start Date End Date Kathy Sweeney MD [address] [place] [address] PCP - General Family Medicine 11/22/22 documented as of this encounter
--- OUTSIDE RECORDS SUMMARY | 2023-03-19 10:55 | External Medical Summary | Summary of Care ---
Author Name Unknown Organization [facility] Address [address] [place] [address] Phone [phone] Care Team Providers Care Online Producer Name Role Phone Kathy Sweeney MD Primary Care Provider [phone] Reason for Visit * Reason Comments eRx-Medication Refill Encounter Details Date Type Department Care Team (Late st Contact Info) Description 12/19/2022 Refill General Internal Medicine [facility] 200 [facility] [place] [address] Armando Arteaga MD [address] [place] [address] Allergic rhinitis due to pollen, unspecified seasonality Allergies Active Allergy Reactions Criticality Noted Date Comments Aspirin Anaphylaxis High 12/21/2016 Lip swelling Diphenhydramine Hcl Edema face/lips/tongue High 08/07 Ibuprofen Edema face/lips/tongue High 10/08/2002 Penicillins Unknown 10/08/2002 Red Dye Edema face/lips/tongue,Hives High 09/13/2005 documented as of this encounter (statuses as of 12/20/2022) Medications Medication Sig Dispensed Refills Start Date End Date Status polyethylene glycol 3350 (MIRALAX) 255 gram powderIndications:Ir ritable bowel syndrome with constipation Take 17 g by mouth as needed for Constipation. Dissolve one heaping tablespoon in 8 ounces of water or juice. 1 Bottle 2 9 Active traZODone HCl 50 MG Oral Tablet (Desyrel)Indications :Insomnia TAKE 1 TABLET AT BEDTIME 90 Tablet 3 2 Active Lisinopril 20 MG Oral Tablet (Prinivil)Indication s:HTN, goal below 140/90 Take by mouth 1 Tablet in the morning. 90 Tablet 3 2 Active Cetirizine HCl 10 MG Oral Tablet Take 1 Tablet by mouth in the morning. 90 Tablet 3 3 Active traMADol HCl 50 MG Oral Tablet (Ultram)Indications: Hereditary and idiopathic peripheral neuropathy Take 1 Tablet by mouth every 6 hours as needed (pain). 40 Tablet 2 3 Active amLODIPine Besylate 5 MG Oral [...] BEFORE BEDTIME 90 Tablet 3 3 Active Montelukast Sodium 10 MG Oral Tablet (Singulair)Indicatio ns:Allergic rhinitis due to pollen, unspecified seasonality Take by mouth 1 Tablet before bedtime. 90 Tablet 3 2 12/21/19 23 Discontinued documented as of this encounter (statuses as of 12/20/2022) Active Problems Problem Noted Date Diagnosed Date [...] as of this encounter (statuses as of 12/20/2022) Resolved Problems Problem Noted Date Diagnosed Date [...] as of this encounter (statuses as of 12/20/2022) Immunizations Name Administration Dates Next Due COVID-19 [...] encounter Miscellaneous Notes * Telephone Encounter - Tony Rebolledo [facility] - 12/20/2022 2:40 AM ESTSigned Prescriptions: Disp Refills Montelukast Sodium 10 MG Oral Tablet (Sing*90 Tab*3 Sig: TAKE 1 TABLET BEFORE BEDTIMEAuthorizing Provider: Kay SWEENEY User: TONY REBOLLEDO Electronically signed by Tony Rebolledo [facility] at 12/20/2022 2:40 AM EST documented in this encounter Plan of Treatment Upcoming Encounters Date Type Department Care Team (Late st Contact Info) Description 01/04/2023 10:30 AM EST Laboratory Laboratory [facility] [place] [address] [place], [place] [phone] Katerina Crum [address] [place], [place] [address] 01/11/2023 11:00 AM EST Office Visit Hematology/Oncology [facility] [address] [place], [place] [address] Bindu Jones MD 200 [facility] [place] [address] 02/23/2023 4:10 PM EST Office Visit Neurology [facility] [address] [facility] [place] [address] Melia Avery PA-C [address] [facility] [place] [address] 03/17/2023 9:00 AM EST Office Visit Neurology [facility] [address] [facility] [place], [place] [address] Alejandro Oshea, DO [address] [place] [address] 05/25/2023 1:40 PM EDT Office Visit Family Practice [facility] [address] [facility] [place], [place] [address] Kathy Sweeney MD [address] [facility] [place], [place] [address] 06/12/2023 1:00 PM EDT Office Visit Dermatology [facility] [address] [facility] [place], [place] [address] Samira Godoy MD [address] [facility] [place] [address] Health Maintenance Due Date Last Done Comments *BISPHONATE OR OTHER ACCEPTABLE MEDICATION NEEDED FOR OSTEOPOROSIS (REFER TO SMARTSET #1146) 05/09/2022 COVID-19 Vaccine ( season) 2022 04/21/2020, 03/31/2020 Albumin/Creatinine Ratio 11/12/2022 11/12/2021, 06/06 Depression Screening 05/07/2023 05/06/2022, 09/03/19 15 CKD PHOS USE SMARTSET 84574 05/09/2023 05/08/2022, 0 10/13/2020 CKD HGB USE SMARTSET 54263 05/21/202305/20, 05/20/2022, 05/09/2022, Additional history exists GFR 05/24/2023 11/22/2022, 05/07, 05/09/2022, Additional history exists DXA Scan 11/11/2023 11/10/2021, 10/08, 07/27/2015, Additional history exists HbA1c 11/23/2023 11/22/2022, 1008/2021, 10/13/2020, Additional history exists COLONOSCOPY-EVERY 5 YRS AGES 18-100 07/08/2026 07/08/2021, 07/08/2021, 11/19/2015, Additional history exists DTaP,Tdap,and Td Vaccines (2 - Td or Tdap) 11/07/2026 11/07/2016, 07/16/2010 Pneumococcal Vaccine: 65+ Years Completed 09/02/2014, 08/30/2010 Zoster Vaccines Completed 11/21/2019, 080 08/2019, 07/25/2007 VITAMIN D LEVEL ONCE IN A LIFETIME-USE SMARTSET# 33294 Completed 10/13/2020, 12/26/2019, 06/21/2018, Additional history exists [...] this encounter Medical Devices Implanted Type Area Sports Apparel Internship Device Identifier Shelf Expiration Date Model / Serial / Lot Alloderm 2x4 Sheet [id number] (8 Units) - [id number] Implanted:Qty : 8 on 11/15/2010 at [place] [facility] [place] Tissue - Human N/A: Esophagus LIFE CELL VICENTA 05/06/2012 [id number] / / [id number] documented as of this encounter Visit Diagnoses Diagnosis Allergic rhinitis due to pollen, unspecified seasonality documented in this encounter Advance Directives Documents on File Type Date Recorded Patient Skin Lifter Bacon Expl anation Advance Directives and Living Will 05/05/2020 ADVANCE DIRECTIVE / LIVING WILL Power of Shank Rander 05/05/2020 POWER OF A TTORNEY MEDICAL Latest [...] and were consensually agreed upon. Care Teams Online Producer Relationship Specialty Start Date End Date Kathy Sweeney MD [address] [place] [address] PCP - General Family Medicine 11/22/22 documented as of this encounter
--- OUTSIDE RECORDS SUMMARY | 2023-03-19 10:55 | External Medical Summary ---
Author Name Unknown Address Unknown Organization K09:[facility] [address] [place] [address] Laboratory Report Ordering Provider Test Date Status DIVINA FLORES 11/22/2022 11:57:56 Final Observation Date Value Abnormality Reference (Units ) Status BUN 11/22/2022 11:57:56 15 6-20 (mg/dL) Final Creatinine 11/22/2022 11:57:56 0.6 0.5-1.0 (mg/dL) Final Glomerular filtration rate/1.73 sq M.predicted [Volume Rate/Area] in Serum, Plasma or Blood by Creatinine-based formula (CKD-EPI) 11/22/2022 11:57:56 88 >=60 (mL/min) Final eGFR is calculated based on the CKD-EPI 2020 equation SODIUM 11/22/2022 11:57:56 138 135-146 (m mol/L) Final Potassium 11/22/2022 11:57:56 4.3 3.5-5.1 (m mol/L) Final Cl 11/22/2022 11:57:56 100 98-107 (mm ol/L) Final CO2 11/22/2022 11:57:56 26 22-32 (mmo l/L) Final Anion gap 11/22/2022 11:57:56 12 7-15 (mmol /L) Final Glucose 11/22/2022 11:57:56 127 Above high normal 70 -120 (mg/dL) Final Albumin 11/22/2022 11:57:56 4.6 3.8-5.0 (g /dL) Final AST (Aspartate aminotransferase) 11/22/2022 11:57:56 19 10-35 (U/L) Fin al Alk Phos 11/22/2022 11:57:56 64 35-130 (U/ L) Final Bilirubin, Total 11/22/2022 11:57:56 0.4 <=1 .2 (mg/dL) Final Calcium 11/22/2022 11:57:56 10.2 8.4-10.2 ( mg/dL) Final Protein 11/22/2022 11:57:56 7.4 6.0-8.3 (g /dL) Final ALT (Alanine aminotransferase) 11/22/2022 11:57:56 16 10-35 (U/L) Cyril muller Performing Location [facility] [address] [place] [address]
--- OUTSIDE RECORDS SUMMARY | 2023-03-19 10:55 | External Medical Summary ---
Author Name Unknown Address Unknown Organization K09:[facility] [place] [address] Laboratory Report Ordering Provider Test Date Status MIN,MAW 01/11/2023 11:16:24 Final Discharge Order Observation Date Value Abnormality Reference (Units ) Status WBC, Total 01/11/2023 11:16:24 12.46 Above high normal 4 .00-10.80 (K/uL) Final RBC 01/11/2023 11:16:24 5.10 3.85-5.15 (M/uL) Final Hemoglobin 01/11/2023 11:16:24 14.1 12.0-15.3 (g/dL) Final HCT 01/11/2023 11:16:24 43.8 36.0-45.2 (%) Final MCV 01/11/2023 11:16:24 85.9 81.5-97.5 (fL) Final MCH 01/11/2023 11:16:24 27.6 27.0-34.0 (pg) Final MCHC 01/11/2023 11:16:24 32.2 32.0-36.0 (g/dL) Final RDW 01/11/2023 11:16:24 14.9 11.5-15.5 (%) Final Platelets 01/11/2023 11:16:24 270 140-400 (K /uL) Final MPV 01/11/2023 11:16:24 8.9 6.6-11.1 ( fL) Final Performing Location [facility] [place] [address]
--- OUTSIDE RECORDS SUMMARY | 2023-03-19 10:55 | External Medical Summary ---
Author Name Unknown Address Unknown Organization K09:[facility] [address] [place] [address] Laboratory Report Ordering Provider Test Date Status KULWANT MONTERROSO 01/11/2023 11:16:24 Final Observation Date Value Abnormality Reference (Units ) Status BUN 01/11/2023 11:16:24 12 6-20 (mg/dL) Final Creatinine 01/11/2023 11:16:24 0.6 0.5-1.0 (mg/dL) Final Glomerular filtration rate/1.73 sq M.predicted [Volume Rate/Area] in Serum, Plasma or Blood by Creatinine-based formula (CKD-EPI) 01/11/2023 11:16:24 88 >=60 (mL/min) Final eGFR is calculated based on the CKD-EPI 2020 equation SODIUM 01/11/2023 11:16:24 138 135-146 (m mol/L) Final Potassium 01/11/2023 11:16:24 4.2 3.5-5.1 (m mol/L) Final Cl 01/11/2023 11:16:24 101 98-107 (mm ol/L) Final CO2 01/11/2023 11:16:24 24 22-32 (mmo l/L) Final Anion gap 01/11/2023 11:16:24 13 7-15 (mmol /L) Final Glucose 01/11/2023 11:16:24 172 Above high normal 70 -120 (mg/dL) Final Albumin 01/11/2023 11:16:24 4.2 3.8-5.0 (g /dL) Final AST (Aspartate aminotransferase) 01/11/2023 11:16:24 16 10-35 (U/L) Fin al Alk Phos 01/11/2023 11:16:24 57 35-130 (U/ L) Final Bilirubin, Total 01/11/2023 11:16:24 0.3 <=1 .2 (mg/dL) Final Calcium 01/11/2023 11:16:24 9.7 8.4-10.2 ( mg/dL) Final Protein 01/11/2023 11:16:24 6.7 6.0-8.3 (g /dL) Final ALT (Alanine aminotransferase) 01/11/2023 11:16:24 17 10-35 (U/L) Cyril muller Performing Location [facility] [address] [place] [address]
--- OUTSIDE RECORDS SUMMARY | 2023-03-19 10:55 | External Medical Summary | Summary of Care ---
Author Name Unknown Organization [facility] Address [address] [place] [address] Phone [phone] Care Team Providers Care Mainframe Systems Engineer Name Role Phone Kathy Sweeney MD Primary Care Provider [phone] Reason for Visit * Reason Onset Date Comments Urinary Tract Infection Symptoms Urinary Tract Infection Symptoms 12/12/2022 Encounter Details Date Type Department Care Team (Late st Contact Info) Description 12/12/2022 1:00 PM EST Convenient Care Visit [facility] [address] [place] [address] Leo Trejo PA-C [address] [place] [address] Dysuria*; Acute UTI Allergies Active Allergy Reactions Criticality Noted Date Comments Aspirin Anaphylaxis High 12/21/2016 Lip swelling Diphenhydramine Hcl Edema face/lips/tongue High 08/07 Ibuprofen Edema face/lips/tongue High 10/08/2002 Penicillins Unknown 10/08/2002 Red Dye Edema face/lips/tongue,Hives High 09/13/2005 documented as of this encounter (statuses as of 12/12/2022) Medications Medication Sig Dispensed Refills Start Date [...] the morning. 90 Tablet 3 12/07/2022 Active Sulfamethoxazole-Trim ethoprim 800-160 MG Oral Tablet (Bactrim DS)Indications:Acute UTI Take 1 Tablet by mouth in the morning and 1 Tablet before bedtime. Do all this for 5 days. Until gone. 10 Tablet 0 12/12/2022 3 Active Cefdinir 300 MG Oral Capsule (Omnicef)Indications: Dysuria,Acute UTI Take 1 Capsule by mouth in the morning and 1 Capsule before bedtime. Do all this for 7 days. For 10 days.. 14 Capsule 0 12/12/2022 3 Active documented as of this encounter (statuses as of 12/12/2022) Active Problems Problem Noted Date Diagnosed Date [...] as of this encounter (statuses as of 12/12/2022) Resolved Problems Problem Noted Date Diagnosed Date [...] as of this encounter (statuses as of 12/12/2022) Immunizations Name Administration Dates Next Due COVID-19 [...] 5 Q uit: 02/06/1971 Smokeless Tobacco: Never Tobacco Cessation:Counseling Given: Not Answered Alcohol Use Standard Drinks/Week Comments No 0 [...] Sign Reading Time Taken Comments Blood Pressure 128/62 12/12/2022 12:33 PM EST Pulse 88 12/12/2022 12:33 PM EST Temperature 36.4 C (97.5 F) 12/12/2022 12:[address] Respiratory Rate 18 12/12/2022 12:33 PM EST Oxygen Saturation 96% 12/12/2022 12:33 PM EST Inhaled Oxygen Concentration - - Weight 64 kg (141 lb) 12/12/2022 12:33 PM EST Height 160 cm (5' 3") 12/12/2022 12:33 PM EST Body Mass Index 24.98 12/12/2022 12:33 PM EST documented in this [...] Yes 05/07/2022 documented as of this encounter Patient Instructions * Patient Instructions* Leo Trejo PA-C - 12/12/2022 12:46 PM EST Cefdinir twice a day for 7 days. Do not stop early. Drink plenty of fluids and increase fluid intake over next 48-72 hours. Take all medications as prescribed, even if you are feeling better sooner so as to reduce risk of reinfection and to reduce the chance of antibiotic resistance developing. If your urine culture shows resistance, we will contact you and switch medications. If your urine culture was negative, we will let you know. Otherwise, assume that if you do not hear from us, the bacteria that grew will likely be treated byyour antibiotic. F/U with PCP with no improvement in 3-5 days. Go immediately to the ED with any change or worsening symptoms including chills, fevers, back pain. documented in this encounter Progress Notes * Leo Trejo PA-C - 12/12/2022 12:35 PM EST CONVENIENT CARE PROGRESS NOTE Cherelle Sherman is a 82 year old female who presents with urinary tract symptoms. Patient was accompanied by son. HPI: Severity of Symptoms: Moderate Modifying Factors (what was done since onset of Symptoms): AZO Timing (How often does it occur): constant Quality (Feels Like): "I've been getting a lot of these" Other associated Signs and Symptoms: Dysuria, frequency, urgency. Denies f/s/ch, n/v/d/c, hematuria, abn vaginal dc or concerns for STI. (vaginal). 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 Diastolic dysfunction 04/22/2020 Dyslipidemia, goal LDL below 130 07/26/2010 Esophageal reflux 10/08/2002 Hiatal hernia treated with surgery High risk for fracture due to osteoporosis by DEXA scan 11/05/2019 History of colonoscopy with polypectomy 09/06/12 adenomatous polyp--repeat in 5 yrs 09/06/17 History of recurrent UTIs 12/25/2018 HTN, goal below 140/90 07/26/2010 Hyperlipidemia LDL goal < 130 08/21/2012 Hyperparathyroidism, primary (HCC) 11/12/2021 IBS (irritable bowel syndrome) 12/07/2015 INFORMATION asthma Insomnia, unspecified 07/26/2010 MEDICATION USE AGREEMENT 06/20/2017 Mild mitral regurgitation 04/22/2020 Sjoegren syndrome 06/19/2013 Past Surgical History: Procedure Laterality Date COLONOSCOPY 02/06/2007 COLONOSCOPY, DIAGNOSTIC (RECTUM) 09/06/2012 adenomatous polyp--repeat in 5 yrs 09/06/17 COLONOSCOPY, DIAGNOSTIC (RECTUM) 11/19/2015 adenomatous polyp, repeat 5 yrs/COLONOSCOPY FLEXIBLE PROXIMAL DIAGNOSTIC performed by Nils Carrington MD at ENDOSCOPY [facility] COLONOSCOPY, DIAGNOSTIC (RECTUM) 07/08/2021 normal bx, diverticulosis / COLONOSCOPY FLEXIBLE PROXIMAL DIAGNOSTIC performed by Hannah Sanchez MD at ENDOSCOPY [facility] EGD, FLEXIBLE, DIAGNOSTIC 09/28/2010 lg hiatal hernia EGD, FLEXIBLE, DIAGNOSTIC N/A 07/08/2021 normal bx, small paraesophageal hernia / ESOPHAGOGASTRODUODENOSCOPY (EGD), FLEXIBLE, TRANSORAL, DIAGNOSTIC performed by Hannah Sanchez MD at ENDOSCOPY [facility] LAPAROSCOPY,RENAL CYSTS 02/07/2008 PARAESOPHAGEAL HERNIA REPAIR, LAP W/ MESH 11/15/2010 LAPAROSCOPIC PARAESOPHAGEAL HERNIA REPAIR W/MESH performed by GINA MACHUCA at [facility] PATIENT EDU, LUMPECTOMY FOR MALIGN* unknown - benign RADIUS/ULNAR FX ORTHO PREFAB 02/06/2010 pinning s/p traumatic fx UPPER GI ENDOSCOPY/EXAM 11/15/2010 UPPER GI ENDOSCOPY SIMPLE performed by GINA MACHUCA at [facility] Social History Socioeconomic History Marital status: Spouse name: Not on file Number of children: Not on file Years of education: Not on file Highest education level: Not on file Occupational History 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 Tobacco Use Smoking status: Former Packs/day: 1.00 Years: 5.00 Additional pack years: 0.00 Total pack years: 5.00 Types: Cigarettes Quit date: 02/06/1971 Years since quittin.8 Smokeless tobacco: Never Vaping Use Vaping Use: Never used Substance and Sexual Activity Alcohol use: No Drug use: No Sexual activity: Yes Partners: Male Comment: no STD history Other Topics Concern Not on file Social History Narrative Lives Retired Social Determinants of Health Financial Resource Strain: Not on file Food Insecurity: No Food Insecurity (05/06/2022) Hunger Vital Sign Worried About Running Out of Food in the Last Year: Never true Ran Out of Food in the Last Year: Never true Transportation Needs: Not on file Physical Activity: Not on file Stress: Not on file Social Connections: Not on file Intimate Partner Violence: Not on file Housing Stability: Not on file Current Outpatient Medications Medication Sig Dispense Refill polyethylene glycol 3350 (MIRALAX) 255 gram powder Take 17 g by mouth as needed for Constipation. Dissolve one heaping tablespoon in 8 ounces of water or juice. 1 Bottle 2 traZODone HCl 50 MG Oral Tablet (Desyrel) TAKE 1 TABLET AT BEDTIME 90 Tablet 3 Lisinopril 20 MG Oral Tablet (Prinivil) Take by mouth 1 Tablet in the morning. 90 Tablet 3 Montelukast Sodium 10 MG Oral Tablet (Singulair) Take by mouth 1 Tablet before bedtime. 90 Tablet 3 Cetirizine HCl 10 MG Oral Tablet Take 1 Tablet by mouth in the morning. 90 Tablet 3 traMADol HCl 50 MG Oral Tablet (Ultram) Take 1 Tablet by mouth every 6 hours as needed (pain). 40 Tablet 2 amLODIPine Besylate 5 MG Oral Tablet (Norvasc) TAKE 1 TABLET EVERY MORNING 90 Tablet 1 Albuterol Sulfate HFA 108 (90 Base) MCG/ACT Inhalation Aerosol Solution USE 2 INHALATIONS ORALLY EVERY 4 HOURS NEEDED FORWHEEZING 54 g 3 Atorvastatin Calcium 10 MG Oral Tablet (Lipitor) Take 1 Tablet by mouth in the morning. 90 Tablet 3 Sulfamethoxazole-Trimethoprim 800-160 MG Oral Tablet (Bactrim DS) Take 1 Tablet by mouth in the morning and 1 Tablet before bedtime. Do all this for 5 days. Until gone. 10 Tablet 0 Cefdinir 300 MG Oral Capsule (Omnicef) Take 1 Capsule by mouth in the morning and 1 Capsule before bedtime. Do all this for 7 days. For 10 days.. 14 Capsule 0 No current facility-administered medications for this visit. Review of patient's allergies indicates: Allergen Reactions Aspirin Anaphylaxis Lip swelling Benadryl [Diphenhydramine Hcl] Edema face/lips/tongue Ibuprofen Edema face/lips/tongue Red Dye Edema face/lips/tongue and Hives Penicillins Unknown Family History Problem Relation Age of Onset Cancer Mother breast Hypertension Mother Hyperlipidemia Son OBJECTIVE: BP 128/62 (BP Site: Left Arm, BP Position: Sitting, BP Cuff Size: Regular) | Pulse 88 | Temp 36.4 C (97.5 F) (Tympanic) | Resp 18 | Ht 1.6 m (5' 3") | Wt 64 kg (141 lb) | SpO2 96% | BMI 24.98 kg/m | BSA 1.69 m Wt Readings from Last 1 Encounters: 12/12/22 64 kg (141 lb) General appearance: awake, alert, no apparent distress Abdominal Exam: back: mild R CVA tenderness and abd: +suprapubic tenderness to palpation, no R/R/G,+BS Respiratory: clear to auscultation, no rhonchi, no wheezes, and no crackles Heart: regular rate, regular rhythm, no murmurs , no rubs, and no gallops Skin/Integumentary: warm, dry Results for orders placed or performed in visit on 12/12/22 URINALYSIS, POINT OF CARE (ENTER/EDIT) Result Value Ref Range Color, Urine [place] (A) Yellow or Light Yellow Clarity, Urine Slightly Cloudy (A) Clear Glucose, Urine Negative Negative mg/dL Bilirubin, Urine Negative Negative Ketone, Urine Negative Negative mg/dL Specific [place], Urine 1.025 1.003 - 1.030 Blood, Urine Trace-intact (A) Negative pH, Urine 6.0 5.0 - 7.5 units Protein, Urine Negative Negative mg/dL Urobilinogen, Urine 1.0 0.2 - 1.0 mg/dL Nitrite, Urine Positive (A) Negative Esterase, Urine Small (A) Negative *Note: Due to a large number of results and/or encounters for the requested time period, some results have not been displayed. A complete set of results can be found in Results Review. Patient Instructions Cefdinir twice a day for 7 days. Do not stop early. Drink plenty of fluids and increase fluid intake over next 48-72 hours. Take all medications as prescribed, even if you are feeling better sooner so as to reduce risk of reinfection and to reduce the chance of antibiotic resistance developing. If your urine culture shows resistance, we will contact you and switch medications. If your urine culture was negative, we will let you know. Otherwise, assume that if you do not hear from us, the bacteria that grew will likely be treated byyour antibiotic. F/U with PCP with no improvement in 3-5 days. Go immediately to the ED with any change or worsening symptoms including chills, fevers, back pain. Assessment: Dysuria (Primary) - URINALYSIS, POINT OF CARE (ENTER/EDIT) - CULTURE, URINE, QUANTITATIVE - Cefdinir 300 MG Oral Capsule (Omnicef); Take 1 Capsule by mouth in the morning and 1 Capsule before bedtime. Do all this for 7 days. For 10 days.. Acute UTI - Sulfamethoxazole-Trimethoprim 800-160 MG Oral Tablet (Bactrim DS); Take 1 Tablet by mouth in the morning and 1 Tablet before bedtime. Do all this for 5 days. Until gone. - Cefdinir 300 MG Oral Capsule (Omnicef); Take 1 Capsule by mouth in the morning and 1 Capsule before bedtime. Do all this for 7 days. For 10 days.. Consistent with UTI Follow Up: Return for Patient to follow up with Primary Care Provider as directed. | For: Patient to follow up with Primary Care Provider as directed Patient goals for plan of care were discussed Leo Trejo PA-C [facility] [address] [facility] [address] documented in this encounter Nursing Notes * Jeni Bashir LPN - 12/12/2022 12:33 PM EST Cherelle Sherman, is a 82 year old female who presents to the walk in clinic today for uti symptoms: burning with urination since Monday. Used azo that hasn't helped. documented in this encounter Plan of Treatment Upcoming Encounters Date Type Department Care Team (Late st Contact Info) Description 01/04/2023 10:30 AM EST Laboratory Laboratory [facility] [address] [place] [address] [facility] [address] [place] [address] 01/11/2023 11:00 AM EST Office Visit Hematology/Oncology [facility] [address] [place] [address] Bindu Jones MD [address] [place] [address] 02/23/2023 4:10 PM EST Office Visit Neurology [facility] [address] [place] [address] Melia Avery PA-C [address] [place] [address] 03/17/2023 9:00 AM EST Office Visit Neurology [facility] [address] [place] [address] Alejandro Oshea, DO [address] [place] [address] 05/25/2023 1:40 PM EDT Office Visit Family Practice [facility] [address] [place] [address] Kathy Sweeney MD [address] [place] [address] [place] [address] 06/12/2023 1:00 PM EDT Office Visit Dermatology [facility] [address] [place] [address] Samira Godoy MD [address] [place] [address] Pending Results Name Type Priority Associated Diagnoses Date /Time CULTURE, URINE, QUANTITATIVE Lab STAT Dysuria 12/12/2022 12:45 PM EST Health Maintenance Due Date Last Done Comments *BISPHONATE OR OTHER ACCEPTABLE MEDICATION NEEDED FOR OSTEOPOROSIS (REFER TO SMARTSET #1146) 05/09/2022 COVID-19 Vaccine ( season) 2022 04/21/2020, 03/31/2020 Albumin/Creatinine Ratio 11/12/2022 11/12/2021, 06/06 Depression Screening 05/07/2023 05/06/2022, 09/03/19 15 CKD PHOS USE SMARTSET 67723 05/09/2023 05/08/2022, 0 10/13/2020 CKD HGB USE SMARTSET 78186 05/21/202305/20, 05/20/2022, 05/09/2022, Additional history exists GFR [...] D LEVEL ONCE IN A LIFETIME-USE SMARTSET# 28604 Completed 10/13/2020, 12/26/2019, 06/21/2018, Additional history exists [...] this encounter Medical Devices Implanted Type Area Material Preparation Worker Device Identifier Shelf Expiration Date Model / Serial / Lot Alloderm 2x4 Sheet [id number] (8 Units) - [id number] Implanted:Qty : 8 on 11[place]15/2010 [place] [facility] [place] - Human N/A: Esophagus [employer] 05/06/2012 [id number] / / [id number] documented as of this encounter Procedures Procedure Name Priority Date/Time Associated Diagnosis Comments URINALYSIS, POINT OF CARE (ENTER/EDIT) Routine 12/12/2022 12:44 PM EST Dysuria documented in this encounter Results * (ABNORMAL) URINALYSIS, POINT OF CARE (ENTER/EDIT) (12/12/2022 12:44 PM EST) Color, Urine [place](A) Yellow or Light Yellow Clarity, Urine Slightly Cloudy(A) Clear Glucose, Urine Negative Negative mg/dL Bilirubin, Urine Negative Negative Ketone, Urine Negative Negative mg/dL Specific [place], Urine 1.025 1.003 - 1.030 Blood, Urine Trace-intact (A) Negative pH, Urine 6.0 5.0 - 7.5 units Protein, Urine Negative Negative mg/dL Urobilinogen, Urine 1.0 0.2 - 1.0 mg/dL Nitrite, Urine Positive(A) Negative Esterase, Urine Small(A) Negative Urine 12/12/2022 12:4 4 PM EST Leo Trejo PA-C LAB POINT O F CARE TEST ENTER/EDIT ORDERABLES documented in this encounter Visit Diagnoses Diagnosis Dysuria- Primary Acute UTI Urinary tract infection, site not specified documented in this encounter Advance Directives Documents on File Type Date Recorded Patient Principal Planner Expl anation Advance Directives and Living Will 05/05/2020 ADVANCE DIRECTIVE / LIVING WILL Power of Furnace Builder 05/05/2020 POWER OF A [employer] Latest [...] and were consensually agreed upon. Care Teams Mainframe Systems Engineer Relationship Specialty Start Date End Date Kathy Sweeney MD [address] [place] [address] PCP - General Family Medicine 11/22/22 documented as of this encounter
--- OUTSIDE RECORDS SUMMARY | 2023-03-19 10:55 | External Medical Summary | Summary of Care ---
Author Name Unknown Organization [facility] Address [address] [place] [address] Phone [phone] Care Team Providers Care Heat Treat Supervisor Name Role Phone Kathy Sweeney MD Primary Care Provider [phone] Reason for Visit * Reason Onset Date Comments NEW PATIENT Medication Administration 11/22/2022 Flu an d/or Pneumo Inj Encounter Details Date Type Department Care Team Description 11/22/2022 Office Visit [facility] [address] [facility] [address] Kathy Sweeney MD [address] [place] [address] Encounter for medical examination to establish care*; Leg cramping; Burning with urination; Mixed hyperlipidemia; Essential hypertension; Stage 3a chronic kidney disease (HCC); Prediabetes; Need for prophylactic vaccination and inoculation against influenza Allergies Active Allergy Reactions Severity Noted Date Comments Aspirin Anaphylaxis High 12/21/2016 Lip swelling Diphenhydramine Hcl Edema face/lips/tongue High 08/07 Ibuprofen Edema face/lips/tongue High 10/08/2002 Penicillins Unknown 10/08/2002 Red Dye Edema face/lips/tongue,Hives High 006 documented as of this encounter (statuses as of 11/24/2022) Medications Medication Sig Dispensed Refills Start Date End Date Status polyethylene glycol 3350 (MIRALAX) 255 gram powderIndications:I rritable bowel syndrome with constipation Take 17 g by mouth as needed for Constipation. Dissolve one heaping tablespoon in 8 ounces of water or juice. 1 Bottle 2 9 Active traZODone HCl 50 MG Oral Tablet (Desyrel)Indication s:Insomnia TAKE 1 TABLET AT BEDTIME 90 Tablet 3 2 Active Atorvastatin Calcium 10 MG Oral Tablet (Lipitor)Indication s:Mixed hyperlipidemia Take by mouth 1 Tablet in the morning. 90 Tablet 3 2 Active Lisinopril 20 MG Oral Tablet (Prinivil)Indicatio ns:HTN, goal below 140/90 Take by mouth 1 Tablet in the morning. 90 Tablet 3 2 Active Montelukast Sodium 10 MG Oral Tablet (Singulair)Indicati ons:Allergic rhinitis due to pollen, unspecified seasonality Take by mouth 1 Tablet before bedtime. 90 Tablet 3 2 Active Cetirizine HCl 10 MG Oral Tablet Take 1 Tablet by mouth in the morning. 90 Tablet 3 3 Active traMADol HCl 50 MG Oral Tablet (Ultram)Indications :Hereditary and idiopathic peripheral neuropathy Take 1 Tablet by mouth every 6 hours as needed (pain). 40 Tablet 2 3 Active amLODIPine Besylate 5 MG Oral Tablet (Norvasc)Indication s:HTN, goal below 140/90,Intermittent lightheadedness TAKE 1 TABLET EVERY MORNING 90 Tablet 1 3 Active Albuterol Sulfate HFA 108 (90 Base) MCG/ACT Inhalation Aerosol SolutionIndications :Mild persistent asthma without complication USE 2 INHALATIONS ORALLY EVERY 4 HOURS NEEDED FORWHEEZING 54 g 3 3 Active LORazepam 0.5 MG Oral Tablet (Ativan)Indications :Claustrophobia Take 1 pill 0.5 hours prior to MRI 1 Tablet 0 3 11/23/19 23 Discontinued Cefdinir 300 MG Oral Capsule (Omnicef)Indication s:Recurrent UTI Take 1 Capsule by mouth in the morning and 1 Capsule before bedtime. Do all this for 10 days. 20 Capsule 0 3 11/23/19 23 Discontinued Cefdinir 300 MG Oral Capsule (Omnicef)Indication s:Dysuria Take 1 Capsule by mouth in the morning and 1 Capsule before bedtime. Do all this for 10 days. For 10 days.. 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 12/25/2018 Abdominal pain, lower 11/05/2015 06/20/2017 Chronic constipation 11/05/2015 12/22/2017 Hyperlipidemia with target LDL less than 130 12/21/2016 Overview: ICD-10 update of inactive term [...] as of this encounter (statuses as of 11/24/2022) Immunizations Name Administration Dates Next Due COVID-19 mRNA, LNP-s, No Pre serve, 2-Dose Series (PowerVision) 04/21/2020,03/31/2020 Pneumococcal Conjugate Vacc, 13 Valent (Prevnar) [...] drink = 0.6 oz pur e alcohol) Food Insecurity Answer Date Recorded Within the past 12 months, y ou worried that your food would run out before you got money to buy more. Never true 05/06/2022 Within the past 12 months, t he food you bought just didn't last and you didn't have money to get more. Never true 05/06/2022 Sex Assigned at Date Recorded Female 06/21/2018 7:57 AM E DT Job Start Date Occupation Industry Not on file Not on file Not on file documented as of this encounter Last Filed Vital Signs Vital Sign Reading Time Taken Comments Blood Pressure 120/66 11/22/2022 10:53 AM EDT Pulse 99 11/22/2022 10:53 AM EDT Temperature 36.1 C (97 F) 11/22/2022 10: 53 AM EDT Respiratory Rate 18 11/22/2022 10:5 3 AM EDT Oxygen Saturation 97% 11/22/2022 10: 53 AM EDT Inhaled Oxygen Concentration - - Weight 63.9 kg (140 lb 12.8 oz) 023 10:53 AM EDT Height - - Body Mass Index 24.94 10/21/2022 10:37 AM EDT documented in this encounter Functional Status Functional [...] as of this encounter Progress Notes * Kathy Sweeney MD - 11/22/2022 11:06 AM EDT Subjective Chief Complaint Patient presents with NEW PATIENT Medication Administration Flu and/or Pneumo Inj HPI: Cherelle Sherman is a 82 year old female. The following issues were addressed today: Presents with son. She is here to establish care. a few years ago. Her biggest concern is cramps in her left leg and right arm at nighttime for the past two weeks. States she thinks it started after weather turned cold. Has a heated mattress and that helps some. Denies swelling or redness in the extremities. Thinks she had burning with urination the night before last. States she had a severe UTI in the past and confusion and was hospitalized. Wants to have her urine checked to make sure she is not getting another one. Has had constipation on and off but reports no current issues. She states she is eating better now and taking MiraLAX daily. She is on Tramadol; states it is the only thing that helps her neuropathy. Was on a lot of OTC supplements in the past but currently only taking homeopathic product "Traumeel" to "help her wind down at night." We reviewed the ingredients which appear to be numerous plant by-products. I discussed with patient I am not familiar enough with ingredients to know side effects or whether they interact with other medications. She understands it is not a regulated medication. License was taken in April for cognitive impairment. States this is when she had confusion from theUTI. She is planning on following up with neurology to discuss this. The patient's past medical history, surgical history, family history, social history, medications, and allergies were reviewed. Has HTN, hyperlipidemia, prediabetes, CKD. Will update labs. Blood pressure is appropriate today. Review of Systems: See HPI Objective BP 120/66 | Pulse 99 | Temp 36.1 C (97 F) (Tympanic) | Resp 18 | Wt 63.9 kg (140 lb 12.8 oz) | SpO2 97% | BMI 24.94 kg/m | BSA 1.69 m Wt Readings from Last 3 Encounters: 11/22/22 63.9 kg (140 lb 12.8 oz) 10/21/22 64.2 kg (141 lb 9.6 oz) 10/20/22 64.8 kg (142 lb 12.8 oz) BP Readings from Last 3 Encounters: 11/22/22 120/66 10/21/22 130/56 10/20/22 150/60 General: Well-appearing, no acute distress Head: Normocephalic and atraumatic Eyes: No conjunctival injection, no scleral icterus, extraocular movements are intact Ears: External ear unremarkable, canals normal and tympanic membranes clear bilaterally Nose: Nasal mucosa pink and moist, nares patent bilaterally Throat/Mouth: Oral mucosa pink and moist, tongue normal in appearance without lesions and with symmetrical movement, pharynx normal in appearance Cardiovascular: Regular rate and rhythm, no murmur Respiratory: Good respiratory effort, breath sounds equal and clear to auscultation bilaterally Abdomen: Soft, non-distended, non-tender, normoactive bowel sounds Extremities: No edema Skin: Warm and dry Neurological: Alert and oriented, no focal deficits noted Psychiatric: Appropriate mood and affect Assessment & Plan 1. Encounter for medical examination to establish care 2. Leg cramping Check labs. Handout on stretches to perform before bedtime provided. - COMPREHENSIVE METABOLIC PANEL; Future - MAGNESIUM; Future 3. Burning with urination - CULTURE, URINE, QUANTITATIVE 4. Mixed hyperlipidemia - LIPID PANEL WITH DIRECT LDL IF TG IS HIGH; Future 5. Essential hypertension Well-controlled. Continue current medication(s). - COMPREHENSIVE METABOLIC PANEL; Future 6. Stage 3a chronic kidney disease (HCC) - COMPREHENSIVE METABOLIC PANEL; Future 7. Prediabetes - HEMOGLOBIN A1C; Future 8. Need for prophylactic vaccination and inoculation against influenza - INFLUENZA VACC, QUAD, HIGH DOSE (FLUZONE HD) Follow Up: Return in about 6 months (around 05/24/2023) for follow-up. This note was electronically signed by Kathy Sweeney MD * Meg Isidro LPN - 11/22/2022 10:55 AM EDT PRE - ADMINISTRATION DOCUMENTATION Are you experiencing any cold symptoms or fever? No Have you had Guillain-Post Falls Syndrome (an illness that causes paralysis) within the last 6 weeks? No Have you had the flu shot in the past? YES Have you ever had a reaction to the flu shot? No Meg Isidro LPN, 11/22/2022 10:55 AM Immunization Administration Documentation Time Out Procedure Performed: Yes Patient Identified (Ask Name/Date of ): Yes Does the patient have a fever greater than 101 degrees today? No Patient allergic to latex? No VFC Stock: No Immunization(s) verified: Yes, Immunization Name: Flu, VIS Sheet(s) given: Yes Verified Side and Site: Yes Verified Shot(s) with Parent(s)/Patient: Yes documented in this encounter Nursing Notes * Meg Isidro LPN - 11/22/2022 10:50 AM EDT Cherelle Sherman presents as new patient to get established. Medications & HM reviewed/updated. Son has some questions documented in this encounter Miscellaneous Notes * Result Encounter Note - Kathy Sweeney MD - 11/24/2022 12:13 PM EDT See TE documented in this encounter Plan of Treatment Upcoming Encounters Date Type Specialty Care Team Description 01/04/2023 Laboratory Laboratory Katerina [place]rum [address] [facility] [place] [id number] 01/11/2023 Office Visit Hematology Oncology Bindu Jones MD [address] [facility] [place] [address] 02/23/2023 Office Visit Neurology Melia Avery PA-C [address] [place] [id number] 03/17/2023 Office Visit Neurology Alejandro Oshea, DO [address] [place] [address] 05/25/2023 Office Visit Family Medicine Kathy Sweeney MD [address] [facility] [place] [address] 06/12/2023 Office Visit Dermatology Samira Godoy MD [address] [facility] [place], [place] [address] Health Maintenance Due Date Last Done Comments *BISPHONATE OR OTHER ACCEPTABLE MEDICATION NEEDED FOR OSTEOPOROSIS (REFER TO SMARTSET #1146) 05/09/2022 COVID-19 Vaccine ( season) 2022 04/21/2020, 03/31/2020 Albumin/Creatinine Ratio 11/12/2022 11/12/2021, 06/06 Depression Screening 05/07/2023 05/06/2022, 09/03/19 15 CKD PHOS USE SMARTSET 58317 05/09/2023 05/08/2022, 0 10/13/2020 CKD HGB USE SMARTSET 13972 05/21/202305/20, 05/20/2022, 05/09/2022, Additional history exists GFR [...] D LEVEL ONCE IN A LIFETIME-USE SMARTSET# 64201 Completed 10/13/2020, 12/26/2019, 06/21/2018, Additional history exists [...] this encounter Medical Devices Implanted Type Area Gum Cook Device Identifier Shelf Expiration Date Model / Serial / Lot Alloderm 2x4 Sheet [id number] (8 Units) - [id number] Implanted:Qty : 8 [place] 11[place]15/[place] [facility] [place] - Human N/A: Esophagus [employer] 05/06/2012 [id number] / / [id number] documented as of this encounter Procedures Procedure Name Priority Date/Time Associated Diagnosis Comments CULTURE, URINE, QUANTITATIVE Routine 11/22/2022 11:58 AM EDT Burning with urination documented in this encounter Results * (ABNORMAL) CULTURE, URINE, QUANTITATIVE (11/22/2022 11:58 AM EDT) Culture Growth >100,000 colonies/mL Escherichia coli(A) MICROBROTH DILUTIONS 11/24/2022 10:44 AM EDT [facility] Urine Urine specimen obtained by clean catch procedure / Unknown Non-blood Collection / Unknown 11/22/2022 11:58 AM EDT 11/22/2022 11:58 AM EDT Narrative [facility] - 11/24/2022 10:44 AM EDT <10,000 colonies/ml mixed normal rajni Organism Antibiotic Method Susceptibility Escherichia coli Ampicillin MICROBROTH DILUTIONS <=2: Susceptible Escherichia coli Cefazolin MICROBROTH DILUTIONS <=4: Susceptible Escherichia coli Cefepime MICROBROTH DILUTIONS <=1: Susceptible Escherichia coli Ceftriaxone MICROBROTH DILUTIONS <=1: Susceptible Escherichia coli Ciprofloxacin MICROBROTH DILUTIONS <=0.25: Susceptible Comment:Due to shawn us side effects, the FDA has advised against using Ciprofloxacin to treat uncomplicated UTIs and respiratory tract infections unless there are no alternative treatment options. Escherichia coli Gentamicin MICROBROTH DILUTIONS <=1: Susceptible Escherichia coli Nitrofurantoin MICROBROTH DILUTIONS <=16: Susceptible Escherichia coli Piperacillin Tazobactam MICROBROTH DI LUTIONS <=4: Susceptible Escherichia coli Trimeth/Sulfamethoxazole MICROBROTH D ILUTIONS <=20: Susceptible Kathy Sweeney MD LAB MICRO - GENERAL ORDERABLES Performing Organization Address [facility] de Phone Number [facility] [address] [place] [address] * (ABNORMAL) HEMOGLOBIN A1C (11/22/2022 11:57 AM EDT) Hemoglobin A1C 5.9(H) 4.0 - 5.6 % 11/22/2022 8:19 PM EDT [facility] Comment:The use of HbA1c to monitor glycemic status is based on normal hemoglobin and HbA composition. This test should not be used in patients with abnormal hemoglobin that affects the half life of the red blood cell or the in vivo glycation rates. Estimated Average Glucose 123 <126 mg/dL 11/22/2022 8:19 PM EDT [facility] Blood Venous blood specimen / Unknown Venipuncture / Unknown 11/22/2022 11:57 AM EDT 11/22/2022 11:57 AM EDT Kathy Sweeney MD LAB BLOOD ORDERABLES Performing Organization Address [facility] Phone Number [facility] [address] [place] [address] * LIPID PANEL WITH DIRECT LDL IF TG IS HIGH (11/22/2022 11:57 AM EDT) Triglycerides 108 <=174 mg/dL 11/22/2022 8:39 PM EDT [facility] Comment: Triglyceride Reference Ranges (mg/dL): <150 Acceptable 150-174 Borderline high 175-499 High >=500 Very high Cholesterol 175 <200 mg/dL 11/22/2022 8:39 PM EDT [facility] Comment: Total Cholesterol Reference Ranges (mg/dL): <200 Desirable 200-239 Borderline high >=240 High HDL Cholesterol 60 >49 mg/dL 8:39 PM EDT [facility] Comment: HDL Cholesterol Reference Ranges (mg/dL): >=60 High (Desirable) <50 Low (Undesirable) For Females <40 Low (Undesirable) For Males Non-HDL Cholesterol 115 <=159 mg/dL 11/22/2022 8:39 PM EDT [facility] Comment: Non-HDL Cholesterol Reference Range (mg/dL): <100 Target level for high risk ASCVD patient <130 Optimal for general population 130-159 Near optimal for general population 160-189 Borderline High 190-219 High >=220 Very High LDL Cholesterol 93 <=129 mg/dL 11/22/2022 8:39 PM EDT [facility] Comment: LDL Cholesterol Reference Ranges (mg/dL): <70 Target level for high risk ASCVD patient <100 Optimal for general population 100-129 Near optimal for general population 130-159 Borderline high 160-189 High >=190 Very high Blood Venous blood specimen / Unknown Venipuncture / Unknown 11/22/2022 11:57 AM EDT 11/22/2022 11:57 AM EDT Kathy Sweeney MD LAB BLOOD ORDERABLES [facility] [address] [place] [address] * MAGNESIUM (11/22/2022 11:57 AM EDT) Magnesium 2.2 1.5 - 2.6 mg/dL 11/22/2022 1:19 PM EDT [facility] Blood Venous blood specimen / Unknown Venipuncture / Unknown 11/22/2022 11:57 AM EDT 11/22/2022 11:57 AM EDT Kathy Sweeney MD LAB BLOOD ORDERABLES [facility] [address] [place] [address] * (ABNORMAL) COMPREHENSIVE METABOLIC PANEL (11/22/2022 11:57 AM EDT) BUN 15 6 - 20 mg/dL 11/22/2022 1:19 PM [facility] 56 Creatinine 0.6 0.5 - 1.0 mg/dL 11/22/2022 1:19 PM [facility] 56 Estimated Glomerular Filtration Rate 88 >=60 mL/min 11/22/2022 1:19 PM [facility] 56 Comment:eGFR is calculated b ased on the CKD-EPI 2020 equation Sodium 138 135 - 146 mmol/L 11/22/2022 1:19 PM [facility] 56 Potassium 4.3 3.5 - 5.1 mmol/L 11/22/2022 1:19 PM [facility] 56 Chloride 100 98 - 107 mmol/L 11/22/2022 1:[address] CO2 26 22 - 32 mmol/L 11/22/2022 1:19 PM [place] [address] Anion Gap 12 7 - 15 mmol/L 11/22/2022 1:19 PM [place] [address] Glucose 127(H) 70 - 120 mg/dL 11/22/2022 1:[address] Albumin 4.6 3.8 - 5.0 g/dL 11/22/2022 1:19 PM [facility] 56 AST 19 10 - 35 U/L 11/22/2022 1:19 PM [facility] 56 Alkaline Phosphatase 64 35 - 130 U/L 11/22/2022 1:19 PM [facility] 56 Bilirubin, Total 0.4 <=1.2 mg/dL 11/22/2022 1:19 PM [facility] 56 Calcium 10.2 8.4 - 10.2 mg/dL 11/22/2022 1:19 PM [facility] 56 Protein 7.4 6.0 - 8.3 g/dL 11/22/2022 1:19 PM [facility] 56 ALT 16 10 - 35 U/L 11/22/2022 1:19 PM [facility] Blood Venous blood specimen / Unknown Venipuncture / Unknown 11/22/2022 11:57 AM EDT 11/22/2022 11:57 AM EDT Kathy Sweeney MD LAB BLOOD ORDERABLES [facility] [facility] [address] documented in this encounter Visit Diagnoses Diagnosis Encounter for medical examination to establish care- Primary Leg cramping Burning with urination Dysuria Mixed hyperlipidemia Essential hypertension Unspecified essential hypertension Stage 3a chronic kidney disease (HCC) Prediabetes Other abnormal glucose Need for prophylactic vaccination and inoculation against influenza documented in this encounter Advance Directives Documents on File Type Date Recorded Patient Circuit Clerk Expl anation Advance Directives and Living Will 05/05/2020 ADVANCE DIRECTIVE / LIVING WILL Power of Contract Administrative Assistant 05/05/2020 POWER OF A [employer] Latest [...] and were consensually agreed upon. Care Teams Heat Treat Supervisor Relationship Specialty Start Date End Date Kathy Sweeney MD [address] [facility] [place] [address] PCP - General Family Medicine 11/22/22 documented as of this encounter
--- OUTSIDE RECORDS SUMMARY | 2023-03-19 10:55 | External Medical Summary | Summary of Care ---
Author Name Unknown Organization [facility] Address [address] [place] [address] Phone [phone] Care Team Providers Care Manager Golf Name Role Phone Kathy Sweeney MD Primary Care Provider [phone] Reason for Referral * Medication Prior Authorization - Pending Review Specialty Diagnoses / Procedures Referred By Contac t Referred To Contact Diagnoses Hereditary and idiopathic peripheral neuropathy Kathy Sweeney MD [address] [facility] [place] [address] Referral ID Status Reason Start Date Expiration Date V isits Requested Visits Authorized [id number] Pending Review 999 999 Reason for Visit * Reason Onset Date Comments Medication Refill 12/19/2022 Encounter Details Date Type Department Care Team (Late st Contact Info) Description 12/19/2022 Refill General Internal Medicine Chandrakant Crum [place] [address] [facility] [place] [address] Lito Vazquez PA-C [address] [facility] [place] [address] Hereditary and idiopathic peripheral neuropathy Allergies Active Allergy Reactions Criticality Noted Date Comments Aspirin Anaphylaxis High 12/21/2016 Lip swelling Diphenhydramine Hcl Edema face/lips/tongue High 07/07/2010 Ibuprofen Edema face/lips/tongue High 10/08/2002 Penicillins Unknown 10/08/2002 Red Dye Edema face/lips/tongue,Hives High 09/13/2005 documented as of this encounter (statuses as of 12/22/2022) Medications Medication Sig Dispensed Refills Start Date [...] needed (pain). 40 Tablet 2 12/22/2022 Active traMADol HCl 50 MG Oral Tablet (Ultram)Indications: Hereditary and idiopathic peripheral neuropathy Take 1 Tablet by mouth every 6 hours as needed (pain). 40 Tablet 2 08/16/2022 3 Discontinu ed(Refill) documented as of this encounter (statuses as of 12/22/2022) Active Problems Problem Noted Date Diagnosed Date [...] as of this encounter (statuses as of 12/22/2022) Resolved Problems Problem Noted Date Diagnosed Date [...] as of this encounter (statuses as of 12/22/2022) Immunizations Name Administration Dates Next Due COVID-19 mRNA, LNP-s, No Pre serve, 2-Dose Series (Loci Controls) 04/21/2020,03/31/2020 Pneumococcal Conjugate Vacc, 13 Valent (Prevnar) [...] encounter Miscellaneous Notes * Telephone Encounter - Kathy Sweeney MD - 12/22/2022 4:14 PM ESTSigned Prescriptions: Disp Refills traMADol HCl 50 MG Oral Tablet (Ultram) 40 Tab*2 Sig: Take 1 Tablet by mouth every 6 hours as needed (pain). Authorizing Provider: KATHY SWEENEY * Telephone Encounter - Mariah Ramos [facility] - 12/20/2022 1:42 PM EST Pending Prescriptions: Disp Refills traMADol HCl 50 MG Oral Tablet (Ultram) 40 Tab*2 Sig: Take 1 Tablet by mouth every 6 hours as needed (pain). * Telephone Encounter - Mariah Ramos [facility] - 12/20/2022 1:40 PM EST I have reviewed the patients controlled substance dispensing history in the Prescription Drug Monitoring Program in compliance with the [facility] regulations before prescribing a controlled substance. PDMP checked on 12/20/2022. Pending Prescriptions: Disp Refills traMADol HCl 50 MG Oral Tablet (Ultram) 40 Tab*2 Sig: Take 1 Tablet by mouth every 6 hours as needed (pain). Last Visit: 10/21/2022 (in office), 01/30/2020 (telemedicine) Next Visit: Visit date not found Date medication was last filled: 11/07/22 Date medication is due for refill: 11/16/22 Pharmacy: [facility] [place] Is this request for a controlled substance? Yes and Urine Drug Screen was completed Toxicology results: Results for orders placed or performed in visit on 01/14/22 PAIN MANAGEMENT DRUG PANEL, URINE W/ INTERPRETATION Result Value Compliance Interpretation Based on the medication information provided: The presence of tramadol and o-desmethyltramadol is CONSISTENT with tramadol use. Amphetamine Negative Benzodiazepines Negative Cannabinoids Negative Cocaine Metabolite Negative Fentanyl Negative Hydrocodone / Hydromorphone Negative Methadone Metabolite Negative Morphine / Codeine Negative Oxycodone / Oxymorphone Negative Valid Interpretation Normal Creatinine JOSE ALFREDO 121 Narrative Cutoff Concentrations: Drug Level Amphetamines [...] results can be found in Results Review. Please approve if appropriate. Thank you, Mariah Ramos, PharmD Clinical Pharmacist [facility] ([facility]) (Formerly Telepharmacy) [phone] 12/20/2022, 1:40 PM documented in this encounter Plan of Treatment Upcoming Encounters Date Type Department Care Team (Late st Contact Info) Description 01/04/2023 10:30 AM EST Laboratory Laboratory [facility] [place] [address] [facility] [place] [id number] [place], Lab [address] [place] [address] 01/11/2023 11:00 AM EST Office Visit Hematology/Oncology [facility] [place] [address] [facility] [place] [address] Bindu Jones MD 200 [facility] [place] [address] 02/23/2023 4:10 PM EST Office Visit Neurology [facility] [place] [facility] [place] [address] Melia Avery PA-C 200 [facility] [place] [address] 03/17/2023 9:00 AM EST Office Visit Neurology [facility] [place] 200 [facility] [place] [address] Alejandro Oshea, DO [address] [place] [facility] [address] 05/25/2023 1:40 PM EDT Office Visit Family Practice [facility] [address] [facility] [place] [address] Kathy Sweeney MD [address] [facility] [place] [address] 06/12/2023 1:00 PM EDT Office Visit Dermatology [facility] 200 [facility] [place], [place] [address] Samira Godoy MD 200 [place] [address] Health Maintenance Due Date Last Done Comments *BISPHONATE OR OTHER ACCEPTABLE MEDICATION NEEDED FOR OSTEOPOROSIS (REFER TO SMARTSET #1146) 05/09/2022 COVID-19 Vaccine ( season) 2022 04/21/2020, 03/31/2020 Albumin/Creatinine Ratio 11/12/2022 11/12/2021, 06/06 Depression Screening 05/07/2023 05/06/2022, 09/03/19 15 CKD PHOS USE SMARTSET 69548 05/09/2023 05/08/2022, 0 10/13/2020 CKD HGB USE SMARTSET 42357 05/21/202305/20, 05/20/2022, 05/09/2022, Additional history exists GFR [...] Completed 09/02/2014, 08/30/2010 Zoster Vaccines Completed 11/21/2019, 0808/2019, 07/25/2007 VITAMIN D LEVEL ONCE IN A LIFETIME-USE SMARTSET# [id number] Completed 10/13/2020, 12/26/2019, 06/21/2018, Additional history exists [...] this encounter Medical Devices Implanted Type Area Budget Clerk Device Identifier Shelf Expiration Date Model / Serial / Lot Alloderm 2x4 Sheet [id number] (8 Units) - [id number] Implanted:Qty : 8 [place] [facility] [place] - Human N/A: Esophagus LIFE CELL ETHERA 05/06/2012 [id number] / / [id number] documented as of this encounter Visit Diagnoses Diagnosis Hereditary and idiopathic peripheral neuropathy Unspecified hereditary and idiopathic peripheral neuropathy documented in this encounter Advance Directives Documents on File Type Date Recorded Patient Cloth Layer Expl anation Advance Directives and Living Will 05/05/2020 ADVANCE DIRECTIVE / LIVING WILL Power of Excellence Specialist 05/05/2020 POWER OF A TTORNEY MEDICAL Latest [...] and were consensually agreed upon. Care Teams Manager Golf Relationship Specialty Start Date End Date Kathy Sweeney MD [address] [place] [address] PCP - General Family Medicine 11/22/22 documented as of this encounter
--- OUTSIDE RECORDS SUMMARY | 2023-03-19 10:55 | External Medical Summary | Summary of Care ---
Author Name Unknown Organization [facility] Address [address] [place] [address] Phone [phone] Care Team Providers Care Design Intern Name Role Phone Kathy Sweeney MD Primary Care Provider [phone] Reason for Visit * Reason Comments eRx-Medication Refill Encounter Details Date Type Department Care Team (Late st Contact Info) Description 11/28/2022 Refill Family Practice [facility] 200 [facility] [place] [address] Kathy Sweeney MD [address] [place] [address] Mixed hyperlipidemia Allergies Active Allergy Reactions Criticality Noted Date Comments Aspirin Anaphylaxis High 12/21/2016 Lip swelling Diphenhydramine Hcl Edema face/lips/tongue High 08/07 Ibuprofen Edema face/lips/tongue High 10/08/2002 Penicillins Unknown 10/08/2002 Red Dye Edema face/lips/tongue,Hives High 09/13/2005 documented as of this encounter (statuses as of 11/28/2022) Medications Medication Sig Dispensed Refills Start Date [...] 1 TABLET EVERY MORNING 90 Tablet 3 3 Active Atorvastatin Calcium 10 MG Oral Tablet (Lipitor)Indications :Mixed hyperlipidemia Take by mouth 1 Tablet in the morning. 90 Tablet 3 2 11/29/19 23 Discontinued documented as of this encounter (statuses as of 11/28/2022) Active Problems Problem Noted Date Diagnosed Date [...] as of this encounter (statuses as of 11/28/2022) Resolved Problems Problem Noted Date Diagnosed Date [...] as of this encounter (statuses as of 11/28/2022) Immunizations Name Administration Dates Next Due COVID-19 [...] encounter Miscellaneous Notes * Telephone Encounter - Nusrat Barba RPh - 11/28/2022 12:26 PM EDTSigned Prescriptions: Disp Refills Atorvastatin Calcium 10 MG Oral Tablet (Li*90 Tab*3 Sig: TAKE 1 TABLET EVERY MORNINGAuthorizing Provider: Kay SWEENEY User: NUSRAT BARBA documented in this encounter Plan of Treatment Upcoming Encounters Date Type Department Care Team (Late st Contact Info) Description 01/04/2023 10:30 AM EST Laboratory Laboratory [facility] [employer] [address] [place] [address] [phone] [place] [address] 01/11/2023 11:00 AM EST Office Visit Hematology/[place] [address] [place] [address] Bindu Jones MD [address] [facility] [place] [address] 02/23/2023 4:10 PM EST Office Visit Neurology [facility] [address] [place], [place] [address] Melia Avery PA-C 200 [facility] [place], [place] [address] 03/17/2023 9:00 AM EST Office Visit Neurology [facility] [address] [facility] [place] [address] Alejandro Oshea, DO [address] [place] [facility] [address] 05/25/2023 1:40 PM EDT Office Visit Family Practice [facility] [address] [place] [address] Kathy Sweeney MD [address] [facility] [place], [place] [address] 06/12/2023 1:00 PM EDT Office Visit Dermatology [facility] [address] [place], [place] [address] Samira Godoy MD [address] [facility] [place] [address] Health Maintenance Due Date Last Done Comments *BISPHONATE OR OTHER ACCEPTABLE MEDICATION NEEDED FOR OSTEOPOROSIS (REFER TO SMARTSET #1146) 05/09/2022 COVID-19 Vaccine ( season) 2022 04/21/2020, 03/31/2020 Albumin/Creatinine Ratio 11/12/2022 11/12/2021, 06/06 Depression Screening 05/07/2023 05/06/2022, 09/03/19 15 CKD PHOS USE SMARTSET 82367 05/09/2023 05/08/2022, 0 10/13/2020 CKD HGB USE SMARTSET 16117 05/21/2023 04/14 /2023, 05/20/2022, 05/09/2022, Additional history exists GFR 05/24/2023 [...] D LEVEL ONCE IN A LIFETIME-USE SMARTSET# 87861 Completed 10/13/2020, 12/26/2019, 06/21/2018, Additional history exists [...] this encounter Medical Devices Implanted Type Area Audio Visual Coordinator Device Identifier Shelf Expiration Date Model / Serial / Lot Alloderm 2x4 Sheet [id number] (8 Units) - [id number] [place]planted:Qty : 8 [place] [facility] [place] - Human N/A: Esophagus LIFE CELL VICENTA 05/06/2012 [id number] / / [id number] documented as of this encounter Visit Diagnoses Diagnosis Mixed hyperlipidemia documented in this encounter Advance Directives Documents on File Type Date Recorded Patient Philosophy Lecturer Expl anation Advance Directives and Living Will 05/05/2020 ADVANCE DIRECTIVE / LIVING WILL Power of Solution Design Engineer 05/05/2020 POWER OF A TTORNEY [...] and were consensually agreed upon. Care Teams Design Intern Relationship Specialty Start Date End Date Kathy Sweeney MD [address] [facility] [place] [address] PCP - General Family Medicine 11/22/22 documented as of this encounter
--- OUTSIDE RECORDS SUMMARY | 2023-03-19 10:55 | External Medical Summary ---
Author Name Unknown Address Unknown Organization K01:[facility] [address] [place] [address] Laboratory Report Ordering Provider Test Date Status KULWANT MONTERROSO 01/11/2023 11:16:24 Final Observation Date Value Abnormality Reference (Units ) Status [facility] 01/11/2023 11:16:24 197 <=250 (U/L ) Final Performing Location [facility] - [address] [place] [address]
--- OUTSIDE RECORDS SUMMARY | 2023-03-19 10:55 | External Medical Summary | Summary of Care ---
Author Name Unknown Organization [facility] Address [address] [place] [address] Phone [phone] Care Team Providers Care Clinical Writer Name Role Phone Kathy Sweeney MD Primary Care Provider [phone] Reason for Visit * Reason Onset Date Comments Advice 11/24/2022 Encounter Details Date Type Department Care Team Description 11/24/2022 Telephone Family Practice [facility] [place] [address] [place] [address] Kathy Sweeney MD 200 [place] [address] Advice Allergies Active Allergy Reactions Severity Noted Date [...] AT BEDTIME 90 Tablet 3 11/08/2021 Active Atorvastatin Calcium 10 MG Oral Tablet (Lipitor)Indications: Mixed hyperlipidemia Take by mouth 1 Tablet in the morning. 90 Tablet 3 11/12/2021 Active Lisinopril 20 MG Oral Tablet (Prinivil)Indications [...] NEEDED FORWHEEZING 54 g 3 11/02/2022 Active Sulfamethoxazole-Trim ethoprim 800-160 MG Oral Tablet (Bactrim DS) Take 1 Tablet by mouth in the morning and 1 Tablet before bedtime. Do all this for 3 days. Until gone.. 6 Tablet 0 11/24/2022 3 Active documented as of this encounter [...] encounter Miscellaneous Notes * Telephone Encounter - Milly Eden LPN - 11/24/2022 4:14 PM EDT Patient's son aware of message below and also made aware of result note regarding labs. * Telephone Encounter - Kathy Sweeney MD - 11/24/2022 12:11 PM EDT Please let patient know she has a UTI and I have called in an antibiotic to her pharmacy. * Telephone Encounter - YUKI Reynolds - 11/24/2022 9:52 AM EDT Pts son called checking on the status of the labs and urine results from 11/22. Pt is in a lot of urinary pain and discomfort. Please advise. documented in this encounter Plan of Treatment Upcoming Encounters Date Type Specialty Care Team Description 01/04/2023 Laboratory Laboratory [place] [place] [address] [place] [address] 01/11/2023 Office Visit Hematology Oncology Bindu Jones MD [address] [place] [address] 02/23/2023 Office Visit Neurology Melia Avery PA-C [address] [place] [address] 03/17/2023 Office Visit Neurology Alejandro Oshea, DO [address] [place] [address] 05/25/2023 Office Visit Family Medicine Kathy Sweeney MD [address] [place] [address] 06/12/2023 Office Visit Dermatology Samira Godoy MD 200 [place] [address] Health Maintenance Due Date Last Done Comments *BISPHONATE OR OTHER ACCEPTABLE MEDICATION NEEDED FOR OSTEOPOROSIS (REFER TO SMARTSET #1146) 05/09/2022 COVID-19 Vaccine ( season) 2022 04/21/2020, 03/31/2020 Albumin/Creatinine Ratio 11/12/2022 11/12/2021, 06/06 Depression Screening 05/07/2023 05/06/2022, 09/03/19 15 CKD PHOS USE SMARTSET 39874 05/09/2023 05/08/2022, 0 10/13/2020 CKD HGB USE SMARTSET 94171 05/21/202305/20, 05/20/2022, 05/09/2022, Additional history exists GFR [...] D LEVEL ONCE IN A LIFETIME-USE SMARTSET# 56986 Completed 10/13/2020, 12/26/2019, 06/21/2018, Additional history exists [...] this encounter Medical Devices Implanted Type Area Quality Analyst/Technical Writer Device Identifier Shelf Expiration Date Model / Serial / Lot Alloderm 2x4 Sheet [id number] (8 Units) - [id number] Implanted:Qty : 8 on 11/15/2010 [place] [facility] [place] Tissue - Human N/A: Esophagus [employer] CELL VICENTA 05/06/2012 [id number] / / [id number] documented as of this encounter Advance Directives Documents on File Type Date Recorded Patient Operations Research Director Expl anation Advance Directives and Living Will 05/05/2020 ADVANCE DIRECTIVE / LIVING WILL Power of Journeyman Pipefitter 05/05/2020 POWER OF A TTORNEY MEDICAL Latest [...] and were consensually agreed upon. Care Teams Clinical Writer Relationship Specialty Start Date End Date Kathy Sweeney MD [address] [place] [address], [place] [address] PCP - General Family Medicine 11/22/22 documented as of this encounter
--- OUTSIDE RECORDS SUMMARY | 2023-03-19 10:55 | External Medical Summary | Summary of Care ---
Author Name Unknown Organization [facility] Address [address] [place] [address] Phone [phone] Care Team Providers Care Forepart Reducer Name Role Phone Kathy Sweeney MD Primary Care Provider [phone] Reason for Visit * Reason Comments Follow Up 6M Encounter Details Date Type Department Care Team (Late st Contact Info) Description 01/11/2023 11:00 AM EST Office Visit Hematology/Oncology [facility] [address] [facility] [place] [address] Bindu Jones MD [address] [place] [address] Leukocytosis, unspecified type*; History of B-cell lymphoma Allergies Active Allergy Reactions Criticality Noted Date [...] mRNA, LNP-s, No Pre serve, 2-Dose Series (Koubachi) 04/21/2020,03/31/2020 Pneumococcal Conjugate Vacc, 13 Valent (Prevnar) [...] Sign Reading Time Taken Comments Blood Pressure 145/74 01/11/2023 10:55 AM EST Pulse 91 01/11/2023 10:55 AM EST Temperature 36.5 C (97.7 F) 01/11/2023 10:[address] Respiratory Rate - - Oxygen Saturation 96% 01/11/2023 10:55 AM EST Inhaled Oxygen Concentration - - Weight 64.2 kg (141 lb 9.6 oz) 01/11/2023 10:55 AM EST Height - - Body Mass Index 25.08 12/12/2022 12:33 PM EST documented in this [...] as of this encounter Progress Notes * Bindu Jones MD - 01/11/2023 10:51 AM EST Outpatient Consult Note Data Source: Patient, [facility] record. Data Source: Patient, Epic record. 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 Burr for the leukocytosis. She has elevated white cellcount since 10/25/2013. She has no history of fever, chills, night sweats, weight loss. She had a complete workup done including SPEP and immunofixation which were negative. JAK2 mutation was also negative LDH was normal. Peripheral blood was reviewed and shows as follow: Peripheral Blood Smear: Mild neutrophilia. Flow cytometry of the peripheral blood was also negative and shows as follow: The flow data from peripheral blood specimen demonstrates lymphocytes composed mostly of T-cells with no evidence of monotypic B-cells. 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 The result was as follow: Skin, left shoulder medial: Cutaneous B-cell lymphoma, follicle center type (see comment) Comment: Given the bcl-2 expression this is suspicious for secondary cutaneous lymphoma. This case has also been reviewed by Dr. Rosita Rojas, who concurs with the diagnosis. B. Skin, right anterior wrist: Hypertrophic actinic keratosis, extending to a peripheral margin andthe deep margin of the specimen Interval History: No new skin lesions. She denies any fever, night sweats, headache, dizziness, chest pain, palpitation abdominal pain or distention, bleeding, bruising, nausea, vomiting. She has issues with the recurrent episode of UTI and following PCP. Last urine culture done on 12/12/2022 was negative. LABS/IMAGING: Results for orders placed or performed in visit on 12/12/22 CULTURE, URINE, QUANTITATIVE Specimen: Urine, Clean Catch Result Value Ref Range Culture Growth No significant growth URINALYSIS, POINT OF CARE (ENTER/EDIT) Result Value Ref Range Color, Urine Leslie (A) Yellow or Light Yellow Clarity, Urine Slightly Cloudy (A) Clear Glucose, Urine Negative Negative mg/dL Bilirubin, Urine Negative Negative Ketone, Urine Negative Negative mg/dL Specific Batchelor, Urine 1.025 1.003 - 1.030 Blood, Urine [...] results can be found in Results Review. REVIEW OF SYSTEMS: General: No Fever, chills, night sweats, or weight loss. HEENT: No change in visual acuity, blurred or double vision. No epistaxis, facial pain, nasal discharge or change in hearing. Denies dysphagia, no muscosal ulceration, or sores noted. Cardiovascular: No chest pain, WINTER, or palpitations Respiratory: No shortness of breath, cough, hemoptysis, or pleuritic chest pain Gastrointestinal: No abdominal pain, nausea, vomiting, diarrhea, rectal pain or bleeding Genitourinary: Denies Hematuria or dysuria Musculoskeletal: Generalized weakness Skin: No new skin rash or lesions noted Psychiatric: No vegetative signs of depression Endocrine: No symptoms of hypothyroidism or hyperglycemia Hematologic: No bleeding or lymph nodes noted As mentioned above, all of the systems were reviewed in full and are unremarkable. Past Medical History: Diagnosis Date Allergic rhinitis [...] Mild mitral regurgitation 04/22/2020 Sjoegren syndrome 06/19/2013 Current Outpatient Medications Medication Sig Dispense Refill polyethylene glycol 3350 (MIRALAX) 255 gram powder Take 17 g by mouth as needed for Constipation. Dissolve one heaping tablespoon in 8 ounces of water or juice. 1 Bottle 2 Lisinopril 20 MG Oral Tablet (Prinivil) Take by mouth 1 Tablet in the morning. 90 Tablet 3 Cetirizine HCl 10 MG [...] 1 TABLET AT BEDTIME 90 Tablet 3 No current facility-administered medications for this visit. Social History Tobacco Use Smoking status: Former Packs/day: 1.00 Years: 5.00 Additional pack years: 0.00 Total pack years: 5.00 Types: Cigarettes Quit date: 02/06/1971 Years since quittin.9 Smokeless tobacco: Never Vaping Use Vaping Use: Never used Substance Use Topics Alcohol use: No Drug use: No Review of patient's allergies indicates: Allergen Reactions Aspirin Anaphylaxis Lip swelling Benadryl [Diphenhydramine Hcl] Edema face/lips/tongue Ibuprofen Edema face/lips/tongue Red Dye Edema face/lips/tongue and Hives Penicillins Unknown PHYSICAL EXAMINATION: General Appearance: Healthy appearing patient in no acute distress There were no vitals taken for this visit. Vitals reviewed. HEENT: No oral or pharyngeal masses, ulceration or thrush noted, no sinus tenderness. Neck is supple with no thyromegaly or JVD noted. Lymph Nodes: No lymphadenopathy noted in the occipital, pre and post auricular, cervical, supra andinfraclavicular, axillary, epitrochlear, inguinal, and popliteal region. Lungs/Thorax: Clear to auscultation, no accessory muscles of respiration being used. Heart: Regular rate and rhythm, normal S1, S2 Abdomen: Soft, nontender, bowel sounds present, no appreciable hepatosplenomegaly, no palpable masses Extremeties: Good pulses bilaterally, no peripheral edema. Skin: Normal skin tone with no new rash, petechiae, ecchymosis noted. ASSESSMENT: 82-year-old female with history of multiple medical problem including diastolic heart dysfunction, dyslipidemia, hypertension, irritable bowel syndrome return to clinic for follow-up for leukocytosisand history of cutaneous B-cell lymphoma. Overall clinically she is stable and physical examination is unremarkable for any new skin lesions.There are no palpable lymph nodes or organomegaly. Discussed with the patient about diagnosis reviewed all the available blood test result with her. She will have repeat blood test done today. PLAN: Blood test will be done today including CBC, CMP, LDH and beta 2 microglobulin. She will return clinic for follow-up in 1 year with same blood test. The patient voiced understanding of all of the above. All questions and concerns were addressed in an apparently satisfactory manner. Bindu Jones MD (This note was completed using the dictation program Fluency Direct. As such, there may be misspellings, word substitutions, or other variations that should not change the essence of the clinical content of this encounter note. If there is need for further clarification, please direct questions to me.) documented in this encounter Nursing Notes * Fabricio Salinas MED ASSIST - 01/11/2023 10:55 AM EST Patient identified by name and date of . Do you have any concerns about pain management for today's visit? No Living Will or Advance Directive for Health Care as noted on problem list. My [facility] is a way you can talk to your provider online through e-mail. Would you like to sign up? I can activate it for you? ALREADY ACTIVE BP 145/74 (BP Site: Left Arm, BP Position: Sitting, BP Cuff Size: Regular) | Pulse 91 | Temp 36.5 C (97.7 F) | Wt 64.2 kg (141 lb 9.6 oz) | SpO2 96% | BMI 25.08 kg/m | BSA 1.69 m Patient was instructed to not get up on the exam table/exam chair until directed and assisted by their provider; patient is to remain seated in the chair/ wheelchair/ exam table/ exam chair for fall prevention and safety reasons. Patient is aware to have assistance to step down off exam table/exam chair with personnel. Patient voiced full comprehension of instructions. documented in this encounter Plan of Treatment Upcoming Encounters Date Type Department Care Team (Late st Contact Info) Description 02/23/2023 4:10 PM EST Office Visit Neurology [facility] [place] [address] [place], [place] [address] Melia Avery PA-C [address] [place] [address] 03/17/2023 9:00 AM EST Office Visit Neurology [facility] [address] [place] [address] Alejandro Oshea, DO [address] [place] [address] 05/25/2023 1:40 PM EDT Office Visit Family Practice [facility] [place] [address] [place] [address] Kathy Sweeney MD [address] [place] [address] 06/12/2023 1:00 PM EDT Office Visit Dermatology [facility] [place] [address] [place] [address] Samira Godoy MD [address] [place], [place] [address] 01/09/2024 10:00 AM EST Laboratory Laboratory [facility] [place] [address] [place], [place] [id number] [place], Lab [facility] [address] [facility] [address] [facility] [place], [place] [address] 01/16/2024 12:30 PM EST Office Visit Hematology/Oncology [facility] [place] [address] [place] [address] Bindu Jones MD [address] [place] [address] Scheduled Orders Name Type Priority Associated Diagnoses Orde r Schedule CBC WITH WBC DIFFERENTIAL Lab Routine Leukocytosis, unspecified type History of B-cell lymphoma Expected: 01/10/2024, Expires: 02/12/2024 COMPREHENSIVE METABOLIC PANEL Lab Routine Leukocytosis, unspecified type History of B-cell lymphoma Expected: 01/10/2024, Expires: 02/12/2024 LD Lab Routine Leukocytosis, unspecified type History of B-cell lymphoma Expected: 01/10/2024, Expires: 02/12/2024 [id number], SERUM Lab Routine Leukocytosis, unspecified type History of B-cell lymphoma Expected: 01/10/2024, Expires: 02/12/2024 Health Maintenance Due Date Last Done Comments *BISPHONATE OR OTHER ACCEPTABLE MEDICATION NEEDED FOR OSTEOPOROSIS (REFER TO SMARTSET #1146) 05/09/2022 COVID-19 Vaccine ( season) 2022 04/21/2020, 03/31/2020 Albumin/Creatinine Ratio 11/12/2022 11/12/2021, 06/06 Depression Screening 05/07/2023 05/06/2022, 09/03/19 15 CKD PHOS USE SMARTSET 30447 05/09/2023 05/08/2022, 0 10/13/2020 CKD HGB USE SMARTSET 45821 05/21/202305/20, 05/20/2022, 05/09/2022, Additional history exists GFR [...] D LEVEL ONCE IN A LIFETIME-USE SMARTSET# 10194 Completed 10/13/2020, 12/26/2019, 06/21/2018, Additional history exists [...] this encounter Medical Devices Implanted Type Area Validation Consultant Device Identifier Shelf Expiration Date Model / Serial / Lot Alloderm 2x4 Sheet [id number] (8 Units) - [id number] Implanted:Qty : 8 on 11/15/2010 at [facility] [place] Tissue - Human N/A: Esophagus LIFE CELL VICENTA 05/06/2012 [id number] / / [id number] documented as of this encounter Visit Diagnoses Diagnosis Leukocytosis, unspecified type- Primary History of B-cell lymphoma documented in this encounter Advance Directives Documents on File Type Date Recorded Patient Refrigeration Houseman Expl anation Advance Directives and Living Will 05/05/2020 ADVANCE DIRECTIVE / LIVING WILL Power of Trawl Net Maker 05/05/2020 POWER OF A TTORNEY MEDICAL Latest [...] and were consensually agreed upon. Care Teams Forepart Reducer Relationship Specialty Start Date End Date Kathy Sweeney MD [address] [place] [address] PCP - General Family Medicine 11/22/22 documented as of this encounter"
--- OUTSIDE RECORDS SUMMARY | 2023-03-19 10:55 | External Medical Summary ---
Author Name Unknown Address Unknown Organization [id number]:[facility] [place] [address] [facility] [address] Laboratory Report Ordering Provider Test Date Status RYAN CROFT 12/12/2022 12:45:46 Final Observation Date Value Abnormality Reference (Units) Status Bacteria identified in Specimen by Culture 12/12/2022 12:45:46 No significant growth Final Test: Culture, Urine, Quanti tative
Specimen Source: Urine, Clean Catch
Specimen Type: Urine
Specimen Date: 12/12/2022 12:45 PM
Result Date: 12/14/2022 7:52 AM
Result Status: Final result
Resulting Lab: [facility]
[address]
[place] [address]

CULTURE

No significant growth

null Performing Location [facility] [place] - [address] [facility] [address]
--- OUTSIDE RECORDS SUMMARY | 2023-03-19 10:55 | External Medical Summary ---
Author Name Unknown Address Unknown Organization [id number]:[facility] [place] [address] Laboratory Report Ordering Provider Test Date Status DIVINA FLORES 11/22/2022 11:57:56 Final Observation Date Value Abnormality Reference (Units ) Status Magnesium 11/22/2022 11:57:56 2.2 1.5-2.6 (m g/dL) Final Performing Location [facility] [address] [address]
--- OUTSIDE RECORDS SUMMARY | 2023-03-19 10:55 | External Medical Summary | Summary of Care ---
Author Name Unknown Organization [facility] Address [address] [place] [address] Phone [phone] Care Team Providers Care Concrete Paver Name Role Phone Kathy Sweeney MD Primary Care Provider Reason for Visit * Reason Comments Outpatient Testing Encounter Details Date Type Department Care Team Description 11/22/2022 Laboratory Laboratory [address] [place] [address] [place] [address] [place], [facility] [address] [place] [address] Leg cramping; Mixed hyperlipidemia; Prediabetes Allergies Active Allergy Reactions Severity Noted Date Comments Aspirin Anaphylaxis High 12/21/2016 Lip swelling Diphenhydramine Hcl Edema face/lips/tongue High 08/07 Ibuprofen Edema face/lips/tongue High 10/08/2002 Penicillins Unknown 10/08/2002 Red Dye Edema face/lips/tongue,Hives High 006 documented as of this encounter (statuses as of 11/22/2022) Medications Medication Sig Dispensed Refills Start Date [...] NEEDED FORWHEEZING 54 g 3 11/02/2022 Active documented as of this encounter (statuses as of 11/22/2022) Active Problems Problem Noted Date Aortic ectasia [...] as of this encounter (statuses as of 11/22/2022) Resolved Problems Problem Noted Date Resolved Date [...] as of this encounter (statuses as of 11/22/2022) Immunizations Name Administration Dates Next Due COVID-19 mRNA, LNP-s, No Pre serve, 2-Dose Series ([place]) 04/21/2020,03/31/2020 Pneumococcal Conjugate Vacc, 13 Valent (Prevnar) [...] Specialty Care Team Description 01/04/2023 Laboratory Laboratory [facility] [address] [facility] [place] [address] 01/11/2023 Office Visit Hematology Oncology Bindu Jones MD [address] [place] [address] 02/23/2023 Office Visit Neurology Melia Avery PA-C [address] [place] [address] 03/17/2023 Office Visit Neurology Alejandro Oshea, DO [address] [place] [address] 05/25/2023 Office Visit Family Medicine Kathy Sweeney MD [address] [facility] [place] [address] 06/12/2023 Office Visit Dermatology Samira Godoy MD [address] [facility] [place] [address] Pending Results Name Type Priority Associated Diagnoses Date /Time COMPREHENSIVE METABOLIC PANEL Lab Routine Leg cramping 11/22/2022 11:57 AM EDT MAGNESIUM Lab Routine Leg cramping 11/22/2022 11:57 AM EDT LIPID PANEL WITH DIRECT LDL IF TG IS HIGH Lab Routine Mixed hyperlipidemia 11/22/2022 11:57 AM EDT HEMOGLOBIN A1C Lab Routine Prediabetes 11/22/2022 11:57 AM EDT Health Maintenance Due Date Last Done Comments *BISPHONATE OR OTHER ACCEPTABLE MEDICATION NEEDED FOR OSTEOPOROSIS (REFER TO SMARTSET #1146) 05/09/2022 COVID-19 Vaccine ( season) 2022 04/21/2020, 03/31/2020 Albumin/Creatinine Ratio 11/12/2022 11/12/2021, 06/06 HbA1c 11/12/2022 11/12/2021, 08/2020, 04/06/2020, Additional history exists GFR 11/19/2022 05/20/2022, 0 04/2022, 05/08/2022, Additional history exists Depression Screening 05/07/2023 05/06/2022, 09/03/19 15 CKD PHOS USE SMARTSET 32790 05/09/2023 05/08/2022, 0 10/13/2020 CKD HGB USE SMARTSET 18864 05/21/202305/20, 05/20/2022, 05/09/2022, Additional history exists DXA Scan 11/11/2023 11/10/2021, 10/08, 07/27/2015, Additional history exists COLONOSCOPY-EVERY 5 YRS AGES 18-100 07/08/2026 07/08/2021, 07/08/2021, 11/19/2015, Additional history exists DTaP,Tdap,and Td Vaccines (2 - Td or Tdap) 11/07/2026 11/07/2016, 07/16/2010 Pneumococcal Vaccine: 65+ Years Completed 09/02/2014, 08/30/2010 Zoster Vaccines Completed 11/21/2019, 080 08/2019, 07/25/2007 VITAMIN D LEVEL ONCE IN A LIFETIME-USE SMARTSET# 18729 Completed 10/13/2020, 12/26/2019, 06/21/2018, Additional history exists [...] this encounter Medical Devices Implanted Type Area Special Agent Device Identifier Shelf Expiration Date Model / Serial / Lot Allodereden 2x4 Sheet [id number] (8 Units) - [id number] Implanted:Qty : 8 on 11/15/2010 at [place] [facility] [place] Tissue - Human N/A: Esophagus LIFE CELL VICENTA 05/06/2012 [id number] / / [id number] documented as of this encounter Visit Diagnoses Diagnosis Leg cramping Mixed hyperlipidemia Prediabetes Other abnormal glucose documented in this encounter Advance Directives Documents on File Type Date Recorded Patient Custodian Manager Expl anation Advance Directives and Living Will 05/05/2020 ADVANCE DIRECTIVE / LIVING WILL Power of Extra Gang Supervisor 05/05/2020 POWER OF A TTORNEY MEDICAL Latest [...] and were consensually agreed upon. Care Teams Concrete Paver Relationship Specialty Start Date End Date Kathy Sweeney MD [address] [facility] [place] [address] PCP - General Family Medicine 11/22/22 documented as of this encounter
--- OUTSIDE RECORDS SUMMARY | 2023-03-19 10:55 | External Medical Summary ---
Author Name Unknown Address Unknown Organization K01:LAB[facility]ATORY [facility] [place] [place] - [address] [facility] [address] Laboratory Report Ordering Provider Test Date Status DIVINA FLORES 11/22/2022 11:58:19 Final <10,000 colonies/ml mixed no rmal rajni Observation Date Value Abnormality Reference (Units ) Status Bacteria identified in Specimen by Culture 11/22/2022 11:58:19 [id number]^ESCHE RICHIA COLI Abnormal Final >100,000 colonies/mL Escheri sybil coli Performing Location [facility] [place] [place] - [address] [facility] [address] Ordering Provider Test Date Status DIVINA FLORES 11/22/2022 11:58:19 Final Observation Date Value Abnormality Reference (Units ) Status Ampicillin 11/22/2022 11:58:19 <=2 Susceptible Final Cefazolin 11/22/2022 11:58:19 <=4 Susceptible Final Cefepime susceptibility 11/22/2022 11:58:19 <=1 Susceptible Final Ceftriaxone suceptibility 11/22/2022 11:58:19 <=1 Susceptible Final Ciprofloxacin 11/22/2022 11:58:19 <=0.25 Susceptible Final Due to serious side effects, the FDA has advised against using Ciprofloxacin to treat uncomplicated UTIs and respiratory tract infections unless there are no alternative treatment options. Gentamicin susceptibility 11/22/2022 11:58:19 <=1 Susc eptible Final Nitrofurantoin susceptibility 11/22/2022 11:58:19 <=16 Susceptible Final Piperacillin + Tazobactamsusceptibility 11/22/2022 11:58:19 <=4 Susceptible Final TMP-SMZ susceptibility 11/22/2022 11:58:19 <=20 Suscept ible Final Test: Culture, Urine, Quanti tative
Specimen Source: Urine, Clean Catch
Specimen Type: Urine
Specimen Date: 11/22/2022 11:58 AM
Result Date: 11/24/2022 10:44 AM
Result Status: Final result
Abnormal: Yes
Resulting Lab: [facility] [place] [place]
[address]
[facility] [address]

CULTURE

>100,000 colonies/mL Escherichia coli (Abnormal)

<10,000 colonies/ml mixed normal rajni

SUSCEPTIBILITY

Escherichia coli
METHOD MICROBROTH DILUTIONS

AMPICILLIN <=2 Susceptible
CEFAZOLIN <=4 Susceptible
CEFEPIME <=1 Susceptible
CEFTRIAXONE <=1 Susceptible
CIPROFLOXACIN <=0.25 Susceptible [1]
GENTAMICIN <=1 Susceptible
NITROFURANTOIN <=16 Susceptible
PIPERACILLIN TAZOBACTAM <=4 Susceptible
TRIMETH/SULFAMETHOXAZOLE <=20 Susceptible

[1] Due to serious side effects, the FDA has advised against using
Ciprofloxacin to treat uncomplicated UTIs and respiratory tract infections
unless there are no alternative treatment options.

null Performing Location LAB[facility]ORY [facility] [place] [place] - [address] [facility] [address]
--- OUTSIDE RECORDS SUMMARY | 2023-03-19 10:55 | External Medical Summary ---
Author Name Unknown Address Unknown Organization K09:[facility] [address] Laboratory Report Ordering Provider Test Date Status VIC SHERIFF 01/11/2023 11:16:24 Final Observation Date Value Abnormality Reference (Units ) Status Phosphate 01/11/2023 11:16:24 2.5 2.5-4.8 (m g/dL) Final Performing Location [facility] [place] [address]
--- OUTSIDE RECORDS SUMMARY | 2023-03-19 10:56 | External Medical Summary | Summary of Care ---
Author Name Unknown Organization [facility] Address [address] [place] [address] Phone [phone] Care Team Providers Care Internist Medical Doctor Md Name Role Phone Armando Arteaga MD Primary Care Provider + Encounter Details Date Type Department Care Team Description 10/24/2022 Orders Only General Internal Medicine [facility] [address] [place] [address] Armando Arteaga MD [address] [place] [address] Allergies Active Allergy Reactions Severity Noted Date Comments Aspirin Anaphylaxis High 12/21/2016 Lip swelling Diphenhydramine Hcl Edema face/lips/tongue High 07/07/2010 Ibuprofen Edema face/lips/tongue High 10/08/2002 Penicillins Unknown 10/08/2002 Red Dye Edema face/lips/tongue,Hives High 006 documented as of this encounter (statuses as of 10/24/2022) Medications Medication Sig Dispensed Refills Start Date End Date Status polyethylene glycol 3350 (MIRALAX) 255 gram powderIndications:Irr itable bowel syndrome with constipation Take 17 g by mouth as needed for Constipation. Dissolve one heaping tablespoon in 8 ounces of water or juice. 1 Bottle 2 12/25/2018 Active Albuterol Sulfate HFA 108 (90 Base) MCG/ACT Inhalation Aerosol SolutionIndications:M ild persistent asthma without complication USE 2 INHALATIONS ORALLY EVERY 4 HOURS NEEDED FORWHEEZING 54 g 2 10/23/2021 Active traZODone HCl 50 MG Oral Tablet [...] before bedtime. 90 Tablet 3 11/12/2021 Active LORazepam 0.5 MG Oral Tablet (Ativan)Indications:C laustrophobia Take 1 pill 0.5 hours prior to MRI 1 Tablet 0 05/20/2022 Active Cetirizine HCl 10 MG Oral Tablet [...] EVERY MORNING 90 Tablet 1 10/03/2022 Active Cefdinir 300 MG Oral Capsule (Omnicef)Indications: Dysuria Take 1 Capsule by mouth in the morning and 1 Capsule before bedtime. Do all this for 10 days. For 10 days.. 20 Capsule 0 10/20/2022 3 Active documented as of this encounter (statuses as of 10/24/2022) Active Problems Problem Noted Date 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 Memory change 05/20/2022 Hx of nonmelanoma skin cancer 01/14/2022 Overview: HxSCC R upper arm 05/2021, BCC Lower midline back 09/2011, L lower leg(bladeras)10/2014 Hyperparathyroidism, primary 11/12/2021 History of peptic ulcer disease 11/13/19 22 Stage 3a chronic kidney disease 08/12/19 21 Senile osteoporosis 08/11/2020 Mild mitral regurgitation 04/22/2020 Diastolic dysfunction 04/22/2020 Hx of lymphoma 12/26/2019 Overview: Primary site L shoulder - 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, 05/2018 High risk for fracture due to osteoporos is by DEXA scan 11/05/2019 Prediabetes 01/14/2019 Overview: Per Prediabetes protocol 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 documented as of this encounter (statuses as of 10/24/2022) Resolved Problems Problem Noted Date Resolved Date [...] as of this encounter (statuses as of 10/24/2022) Immunizations Name Administration Dates Next Due COVID-19 mRNA, LNP-s, No Pre serve, 2-Dose Series (Olery) 04/21/2020,03/31/2020 Pneumococcal Conjugate Vacc, 13 Valent (Prevnar) 09/02/2014 Pneumococcal Polysaccharide PPV23 (Pneumovax) 08/30/2010 Seasonal Influenza, PF, 6 mo ns & Above, IM , (Flulaval) 10/13/2020,10/29/2019,12/07/2017,12/01 Seasonal Influenza, Quadriva lent Hd (Fluzone Hd) 11/12/2021 Seasonal Influenza, Quadriva lent, No Preserve, IM [...] Encounters Date Type Specialty Care Team Description 11/22/2022 Office Visit Family Medicine Kathy Sweeney MD [address] [place] [id number] 12/12/2022 Office Visit Neurology Melia Avery PA-C [address] [place] [id number] 01/04/2023 Laboratory Laboratory Katerina Crum [address] [place] [id number] 01/11/2023 Office Visit Hematology Oncology Bindu Jones MD [address] [place] [id number] 03/17/2023 Office Visit Neurology Alejandro Oshea, DO [address] [place] [address] 06/12/2023 Office Visit Dermatology Samira Godoy MD [address] [place] [address] Health Maintenance Due Date Last Done Comments COVID-19 Vaccine (3 - Pfizer series) 06/16/2020 04/21/2020, 03/31/2020 *BISPHONATE OR OTHER ACCEPTABLE MEDICATION NEEDED FOR OSTEOPOROSIS (REFER TO SMARTSET #1146) 05/09/2022 Influenza Vaccine (FLU shot) (#1) 2022 11/12/2021, 10/13/2020, 10/29/2019, Additional history exists Albumin/Creatinine Ratio 11/12/2022 11/12/2021, 06/06 HbA1c 11/12/2022 11/12/2021, 090 08/2020, 04/06/2020, Additional history exists GFR 11/19/2022 05/20/2022, 040 04/2022, 05/08/2022, Additional history exists Depression Screening 05/07/2023 05/06/2022, 09/03/19 15 CKD PHOS USE SMARTSET 60445 05/09/2023 05/08/2022, 0 10/13/2020 CKD HGB USE SMARTSET 14652 05/21/202305/20, 05/20/2022, 05/09/2022, Additional history exists DXA Scan 11/11/2023 11/10/2021, 10/08, 07/27/2015, Additional history exists COLONOSCOPY-EVERY 5 YRS AGES 18-100 07/08/2026 07/08/2021, 07/08/2021, 11/19/2015, Additional history exists DTaP,Tdap,and Td Vaccines (2 - Td or Tdap) 11/07/2026 11/07/2016, 07/16/2010 Pneumococcal Vaccine: 65+ Years Completed 09/02/2014, 08/30/2010 Zoster Vaccines Completed 11/21/2019, 08/0 08/2019, 07/25/2007 VITAMIN D LEVEL ONCE IN A LIFETIME-USE SMARTSET# [id number] Completed 10/13/2020, 12/26/2019, 06/21/2018, Additional history exists GARDASIL-HPV IMMUNIZATION SERIES Aged Out No longer eligible based on patient's age to complete this topic Hepatitis B Aged Out No longer eligi ble based on patient's age to complete this topic MENINGOCOCCAL (MENACTRA/MENVEO) Aged Out No longer eligible based on patient's age to complete this topic documented as of this encounter Medical Devices Implanted Type Area Gun Profiler Device Identifier Shelf Expiration Date Model / Serial / Lot Alloderm 2x4 Sheet [id number] (8 Units) - [id number] Implanted:Qty : 8 on 11/15/2010 at OR [facility] [place] Tissue - Human N/A: Esophagus [employer] 05/06/2012 [id number] / / [id number] documented as of this encounter Procedures Procedure Name Priority Date/Time Associated Diagnosis Comments MAMMOGRAM SCREENING BILATERAL Routine 10/21/2022 documented in this encounter Results * MAMMOGRAM SCREENING BILATERAL (10/21/2022) Anatomical Region Laterality Modality Breast Bilateral Other 10/21/2022 Armando Arteaga MD RAD MAMMOGRAPHY documented in this encounter Advance Directives Documents on File Type Date Recorded Patient Marketing Program Manager Expl anation Advance Directives and Living Will 05/05/2020 ADVANCE DIRECTIVE / LIVING WILL Power of Tipple Repairer 05/05/2020 POWER OF A [employer] Latest [...] and were consensually agreed upon. Care Teams Internist Medical Doctor Md Relationship Specialty Start Date End Date Armando Arteaga MD [address] [place] [address], [place] [id number] PCP - General Internal Medicine 07/26/10 documented as of this encounter
--- OUTSIDE RECORDS SUMMARY | 2023-03-19 10:56 | External Medical Summary | Summary of Care ---
Author Name Unknown Organization [facility] Address [address] [place] [address] Phone [phone] Care Team Providers Care Board Mill Supervisor Name Role Phone Armando Arteaga MD Primary Care Provider + Reason for Visit * Reason Comments Urinary Tract Infection Symptoms Encounter Details Date Type Department Care Team Description 10/20/2022 Convenient Care Visit [facility] [address] [place] [address] Ashlee Reyna PA-C [address] [place] [address] Abdominal pain, generalized*; Dysuria Allergies Active Allergy Reactions Severity Noted Date Comments Aspirin Anaphylaxis High 12/21/2016 Lip swelling Diphenhydramine Hcl Edema face/lips/tongue High 08/07 Ibuprofen Edema face/lips/tongue High 10/08/2002 Penicillins Unknown 10/08/2002 Red Dye Edema face/lips/tongue,Hives High 006 documented as of this encounter (statuses as of 10/20/2022) Medications Medication Sig Dispensed Refills Start Date [...] 11/12/2021 Active Lisinopril 20 MG Oral Tablet (Prinivil)Indication s:HTN, goal below 140/90 Take by mouth 1 Tablet in the morning. 90 Tablet 3 11/12/2021 Active Montelukast Sodium 10 MG Oral Tablet (Singulair)Indicatio ns:Allergic rhinitis due to pollen, unspecified seasonality Take by mouth 1 Tablet before bedtime. 90 Tablet 3 11/12/2021 Active LORazepam 0.5 MG Oral Tablet (Ativan)Indications: Claustrophobia Take 1 pill 0.5 hours prior to MRI 1 Tablet 0 05/20/2022 Active Additional Information Patient not taking.Reported on 06/09/2022 Cetirizine HCl 10 MG Oral Tablet Take [...] 10/03/2022 Active Cefdinir 300 MG Oral Capsule (Omnicef)Indications :Dysuria Take 1 Capsule by mouth in the morning and 1 Capsule before bedtime. Do all this for 10 days. For 10 days.. 20 Capsule 0 10/20/2022 10/31/19 23 Active Sulfamethoxazole-Tri methoprim 800-160 MG Oral Tablet (Bactrim DS)Indications:Dysur ia Take 1 Tablet by mouth in the morning and 1 Tablet before bedtime. Do all this for 7 days. Until gone. 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 Memory change 05/20/2022 Hx of nonmelanoma skin cancer 01/14/2022 Overview: HxSCC R upper arm 05/2021, BCC Lower midline back 09/2011, L lower leg(balderas)10/2014 Hyperparathyroidism, primary 11/12/2021 History of peptic ulcer [...] as of this encounter (statuses as of 10/20/2022) Resolved Problems Problem Noted Date Resolved Date [...] as of this encounter (statuses as of 10/20/2022) Immunizations Name Administration Dates Next Due COVID-19 mRNA, LNP-s, No Pre serve, 2-Dose Series ([employer] 04/21/2020,03/31/2020 Pneumococcal Conjugate Vacc, 13 Valent (Prevnar) [...] Sign Reading Time Taken Comments Blood Pressure 150/60 10/20/2022 11:03 AM EDT Pulse 92 10/20/2022 11:03 AM EDT Temperature 36.3 C (97.3 F) 10/20/2022 1 1:03 AM EDT Respiratory Rate 16 10/20/2022 11:0 3 AM EDT Oxygen Saturation 100% 10/20/2022 11: 03 AM EDT Inhaled Oxygen Concentration - - Weight 64.8 kg (142 lb 12.8 oz) 023 11:03 AM EDT Height 160 cm (5' 3") 10/20/2022 11:03 AM EDT Body Mass Index 25.3 10/20/2022 11:03 AM EDT documented in this encounter Functional [...] this encounter Patient Instructions * Patient Instructions* Ashlee Reyna PA-C - 10/20/2022 11:38 AM EDT Go to the ER if symptoms worsen documented in this encounter Progress Notes * Ashlee Reyna PA-C - 10/20/2022 11:16 AM EDT Subjective: Nursing Notes: Jeaneth Valera LPN 10/20/22 1114 Signed 82 yo female presents with dysuria x 1 day. No OTC HPI: Pt is a 82 year old YO female who presents c/o: Dysuria: yes Hematuria: no Increased Frequency: no Urgency: no Flank Pain: no Abdominal Pain: yes lower abdominal: significant pain all over abdomen at this time States normal bowel and bladder function. Vaginal D/C: no Fever: no Malaise: no UTI PMHX: yes Renal Stone PMHX: no Gential Lesion/Rash: no Pt was hospitalized with acute colitis 05/07/21 at [facility]. Pt has had pain in abdomen, states since she was in the hospital in early May 2022, and has had much less freq bowel movement. Takes Miralax regularly but is does not helping. Cannot remember when her last BM was. Is aware that her abdominal pain is likely assoc w this PMH: Patient Active Problem List Diagnosis Code Allergic rhinitis J30.9 HTN, goal below 140/90 I10 Asthma, mild persistent J45.30 Sjogren's syndrome (HCC) M35.00 Hereditary and idiopathic peripheral neuropathy G60.9 IBS (irritable bowel syndrome) K58.9 Hx of actinic keratosis Z87.2 Gastroesophageal reflux disease with esophagitis K21.00 MEDICATION USE AGREEMENT [id number] History of B-cell lymphoma Z85.72 Mixed hyperlipidemia E78.2 Leukocytosis D72.829 History of recurrent UTIs Z87.440 Prediabetes R73.03 High risk for fracture due to osteoporosis by DEXA scan M81.0 Hx of lymphoma Z85.72 Mild mitral regurgitation I34.0 Diastolic dysfunction I51.89 Stage 3a chronic kidney disease (HCC) N18.31 Senile osteoporosis M81.0 Hyperparathyroidism, primary (HCC) E21.0 History of peptic ulcer disease Z87.11 Hx of nonmelanoma skin cancer Z85.828 Memory change R41.3 Aortic ectasia ([facility]) I77.819 Current Outpatient Medications Medication Sig Dispense Refill Cefdinir 300 MG Oral Capsule (Omnicef) Take 1 Capsule by mouth in the morning and 1 Capsule before bedtime. Do all this for 10 days. For 10 days.. 20 Capsule 0 polyethylene glycol 3350 (MIRALAX) 255 gram powder Take 17 g by mouth as needed for Constipation. Dissolve one heaping tablespoon in 8 ounces of water or juice. 1 Bottle 2 Albuterol Sulfate HFA 108 (90 Base) MCG/ACT Inhalation Aerosol Solution USE 2 INHALATIONS ORALLY EVERY 4 HOURS NEEDED FORWHEEZING 54 g 2 traZODone HCl 50 MG Oral Tablet (Desyrel) TAKE 1 TABLET AT BEDTIME 90 Tablet 3 Atorvastatin Calcium 10 MG Oral Tablet (Lipitor) Take by mouth 1 Tablet in the morning. 90 Tablet 3 Lisinopril 20 MG Oral Tablet (Prinivil) Take by mouth 1 Tablet in the morning. 90 Tablet 3 Montelukast Sodium 10 MG Oral Tablet (Singulair) Take by mouth 1 Tablet before bedtime. 90 Tablet 3 LORazepam 0.5 MG Oral Tablet (Ativan) Take 1 pill 0.5 hours prior to MRI (Patient not taking: Reported on 06/09/2022) 1 Tablet 0 Cetirizine HCl 10 MG Oral Tablet Take 1 Tablet by mouth in the morning. 90 Tablet 3 traMADol HCl 50 MG Oral Tablet (Ultram) Take 1 Tablet by mouth every 6 hours as needed (pain). 40 Tablet 2 amLODIPine Besylate 5 MG Oral Tablet (Norvasc) TAKE 1 TABLET EVERY MORNING 90 Tablet 1 No current facility-administered medications for this visit. Past Medical History: Diagnosis Date Allergic rhinitis [...] performed by Nils Carrington MD at [facility] COLONOSCOPY, DIAGNOSTIC (RECTUM) 07/08/2021 normal bx, diverticulosis / COLONOSCOPY FLEXIBLE PROXIMAL DIAGNOSTIC performed by Hannah Sanchez MD at [facility]OSCOPY [facility] EGD, FLEXIBLE, DIAGNOSTIC 09/28/2010 lg hiatal hernia EGD, FLEXIBLE, DIAGNOSTIC N/A 07/08/2021 normal bx, small paraesophageal hernia / ESOPHAGOGASTRODUODENOSCOPY (EGD), FLEXIBLE, TRANSORAL, DIAGNOSTIC performed by Hannah Sanchez MD at [facility]COPY [facility] LAPAROSCOPY,RENAL CYSTS 02/07/2008 PARAESOPHAGEAL HERNIA REPAIR, LAP W/ MESH 11/15/2010 LAPAROSCOPIC PARAESOPHAGEAL HERNIA REPAIR W/MESH performed by GINA MACHUCA at [facility] PATIENT EDU, LUMPECTOMY FOR MALIGN* unknown - benign RADIUS/ULNAR FX ORTHO PREFAB 02/06/2010 pinning s/p traumatic fx UPPER GI ENDOSCOPY/EXAM 11/15/2010 UPPER GI ENDOSCOPY SIMPLE performed by GINA MACHUCA at [facility] Review of patient's allergies indicates: Allergen Reactions Aspirin Anaphylaxis Lip swelling Benadryl [Diphenhydramine Hcl] Edema face/lips/tongue Ibuprofen Edema face/lips/tongue Red Dye Edema face/lips/tongue and Hives Penicillins Unknown Objective: BP 150/60 | Pulse 92 | Temp 36.3 C (97.3 F) (Tympanic) | Resp 16 | Ht 1.6 m (5' 3") | Wt 64.8 kg (142 lb 12.8 oz) | SpO2 100% | BMI 25.30 kg/m | BSA 1.7 m Physical Exam Constitutional: Appearance: Normal appearance. She is normal weight. Cardiovascular: Rate and Rhythm: Normal rate and regular rhythm. Heart sounds: Normal heart sounds. Pulmonary: Effort: Pulmonary effort is normal. Breath sounds: Normal breath sounds. Abdominal: General: There is distension. Tenderness: There is abdominal tenderness. There is guarding. There is no right CVA tenderness, left CVA tenderness or rebound. Comments: Has some pain with walking Neurological: Mental Status: She is alert and oriented to person, place, and time. Psychiatric: Mood and Affect: Mood normal. Behavior: Behavior normal. ASSESSMENT/PLAN: Abdominal pain, generalized (Primary) Dysuria - URINALYSIS, POINT OF CARE (ENTER/EDIT) - CULTURE, URINE, QUANTITATIVE - Cefdinir 300 MG Oral Capsule (Omnicef); Take 1 Capsule by mouth in the morning and 1 Capsule before bedtime. Do all this for 10 days. For 10 days.. Will treat UTI anyway, very concerned that pt has continuing abdominal pain since she was in hospital. Does have burning w urination and so will treat. Discussed if worsens, need to go to ER. Arranged for pt to have appt with a Primary Care Provider tomorrow for further eval of the abdominal pain and chronic constipation Over 30 minutes spent with patient exam, counseling, review of previous medical records and with documenting. Carolyn ed h/o providedo n UTI Ashlee Reyna PA-C documented in this encounter Nursing Notes * Jeaneth Valera LPN - 10/20/2022 11:03 AM EDT 82 yo female presents with dysuria x 1 day. No OTC documented in this encounter Miscellaneous Notes * Pt Handout (on AVS) - Ashlee Reyna PA-C - 10/20/2022 11:37 AM EDT Images from the original note were not included. [address] Urethritis in Women We understand that gender is a spectrum. We may use gendered terms to talk about anatomy and healthrisk. Please use this sheet in a way that works best for you and your provider as you talk about your care. Urethritis occurs when the urethra is red and swollen (inflamed). The urethra is the tube that passes urine from the bladder to outside the body. The urethra can get swollen and cause burning pain when you urinate. You may also have pain with sex. It can cause pain in the belly (abdomen) or pelvis.A urethral or vaginal discharge may also occur. An inflamed urethra can cause pain during urination. What causes urethritis? Urethritis can be caused by a bacterial or viral infection. This kind of infection can lead to conditions such as a urinary tract infection (UTI) or sexually transmitted infection (STI). Urethritis can also be caused by an injury or because of sensitivity or allergy to chemicals in lotions and other products. People who are postmenopausal are at risk for urethritis. How is urethritis diagnosed? Your healthcare provider will examine you and ask about your symptoms and health history. You may also have one or more of the following tests: Urine test. Urine samples are taken and checked for problems. Blood test. A blood sample is taken and checked for problems. Vaginal culture. A sample of vaginal discharge is taken and tested for problems. A cotton swab is inserted into the vagina. Cystoscopy. This test lets the provider look for problems in the urinary tract. The test uses a thin, flexible telescope called a cystoscope with a light and camera attached. The scope is put intothe urethra. Ultrasound. This lets the healthcare provider see a detailed image of the inside of your pelvis.Ultrasound will not show if you have urethritis. But it may show other signs of STIs that can also cause urethritis. Nucleic acid test (JONATHON). This can tell if you have a virus or bacteria. It may be done instead of a culture because it allows for a faster diagnosis. How is urethritis treated? Treatment depends on the cause of urethritis. If it?s due to a bacterial infection, medicines that fight infection (antibiotics) will be given. Your healthcare provider can tell you more about your treatment options. In the meantime, your symptoms can be treated. To relieve pain and swelling, anti-i nflammatory medicines, such as ibuprofen, may be given. Untreated, symptoms may get worse. It can also cause scar tissue to form in the urethra, making it narrow. And it can lead to pelvic inflammatory disease. When to call your healthcare provider Call the healthcare provider right away if you have any of the following: Fever of 100.4 F ( 38.0C ) or higher, or as directed by your provider Burning pain with urination Belly or pelvic pain Increased urge to urinate Discharge from the vagina Preventing STIs When it comes to sex, it?s important to take care and be safe. Any sexual contact with the penis, vagina, anus, or mouth can spread an STI. The only sure way to prevent STIs is not to have sex (abstinence). But there are ways to make sex safer. Use a latex condom each time you have sex. And talk with your partner about STIs before you have sex. Last Reviewed Date: 07/07/202119996986-3041 The [employer]. All rights reserved. This information is not intended as a substitute for professional medical care. Always follow your healthcare professional's instructions. documented in this encounter Plan of Treatment Upcoming Encounters Date Type Specialty Care Team Description 10/21/2022 Office Visit Internal Medicine Lito Vazquez PA-C [address] [place] [id number] 12/06/2022 Office Visit Internal Medicine Armando Arteaga MD [address] [place] [id number] 12/12/2022 Office Visit Neurology Melai Avery PA-C [address] [place] [id number] 01/04/2023 Laboratory Laboratory Katerina Crum [address] [place] [address] 01/11/2023 Office Visit Hematology Oncology Bindu Jones MD [address] [facility] [address] [place] [address] 03/17/2023 Office Visit Neurology Alejandro Oshea, DO [address] [place] [address] 06/12/2023 Office Visit Dermatology Samira Godoy MD [address] [facility] [place] [address] Pending Results Name Type Priority Associated Diagnoses Date /Time CULTURE, URINE, QUANTITATIVE Lab Routine Dysuria 10/20/2022 11:26 AM EDT Health Maintenance Due Date Last Done Comments COVID-19 Vaccine (3 - Pfizer series) 06/16/2020 04/21/2020, 03/31/2020 *BISPHONATE OR OTHER ACCEPTABLE MEDICATION NEEDED FOR OSTEOPOROSIS (REFER TO SMARTSET #1146) 05/09/2022 Influenza Vaccine (FLU shot) (#1) 2022 11/12/2021, 10/13/2020, 10/29/2019, Additional history exists Albumin/Creatinine Ratio 11/12/2022 11/12/2021, 06/06 HbA1c 11/12/2022 11/12/2021, 0908/2020, 04/06/2020, Additional history exists GFR 11/19/2022 05/20/2022, 040 04/2022, 05/08/2022, Additional history exists Depression Screening 05/07/2023 05/06/2022, 09/03/19 15 CKD PHOS USE SMARTSET 96056 05/09/2023 05/08/2022, 0 10/13/2020 CKD HGB USE SMARTSET 62608 05/21/202305/20, 05/20/2022, 05/09/2022, Additional history exists DXA Scan 11/11/2023 11/10/2021, 10/08, 07/27/2015, Additional history exists COLONOSCOPY-EVERY 5 YRS AGES 18-100 07/08/2026 07/08/2021, 07/08/2021, 11/19/2015, Additional history exists DTaP,Tdap,and Td Vaccines (2 - Td or Tdap) 11/07/2026 11/07/2016, 07/16/2010 Pneumococcal Vaccine: 65+ Years Completed 09/02/2014, 08/30/2010 Zoster Vaccines Completed 11/21/2019, 08/2019, 07/25/2007 VITAMIN D LEVEL ONCE IN A LIFETIME-USE SMARTSET# [id number] Completed 10/13/2020, 12/26/2019, 06/21/2018, Additional history exists [...] this encounter Medical Devices Implanted Type Area Risk Control Consultant Device Identifier Shelf Expiration Date Model / Serial / Lot Alloderm 2x4 Sheet [id number] (8 Units) - [id number] Implanted:Qty : 8 on 11/15/2010 at [facility] Tissue - Human N/A: Esophagus [employer] 05/06/2012 [id number] / / [id number] documented as of this encounter Procedures Procedure Name Priority Date/Time Associated Diagnosis Comments URINALYSIS, POINT OF CARE (ENTER/EDIT) Routine 10/20/2022 Dysuria documented in this encounter Results * URINALYSIS, POINT OF CARE (ENTER/EDIT) (10/20/2022) Color, Urine Yellow Yellow or Light Yellow Clarity, Urine Clear Clear Glucose, Urine Negative Negative mg/dL Bilirubin, Urine Negative Negative Ketone, Urine Negative Negative mg/dL Specific Siren, Urine 1.015 1.003 - 1.030 Blood, Urine Negative Negative pH, Urine 5.5 5.0 - 7.5 units Protein, Urine Negative Negative mg/dL Urobilinogen, Urine 0.2 0.2 - 1.0 mg/dL Nitrite, Urine Negative Negative Esterase, Urine Negative Negative Urine 10/20/2022 Ashlee Reyna PA-C LAB POINT OF C ARE TEST ENTER/EDIT ORDERABLES documented in this encounter Visit Diagnoses Diagnosis Abdominal pain, generalized- Primary Dysuria documented in this encounter Advance Directives Documents on File Type Date Recorded Patient Application Systems Administrator Expl anation Advance Directives and Living Will 05/05/2020 ADVANCE DIRECTIVE / LIVING WILL Power of Traffic Controller Cable 05/05/2020 POWER OF A [employer] Latest [...] and were consensually agreed upon. Care Teams Board Mill Supervisor Relationship Specialty Start Date End Date Armando Arteaga MD [address] [place] [address] [place] [id number] PCP - General Internal Medicine 07/26/10 documented as of this encounter
--- OUTSIDE RECORDS SUMMARY | 2023-03-19 10:56 | External Medical Summary | Summary of Care ---
Author Name Unknown Organization [facility] Address [address] [place] [address] Phone [phone] Care Team Providers Care Press Washer Name Role Phone Armando Arteaga MD Primary Care Provider + Reason for Visit * Reason Comments Flank Pain Was seen at [facility] thinking that she had a UTI. Dizziness Encounter Details Date Type Department Care Team Description 10/21/2022 Office Visit General Internal Medicine [facility] [address] [facility] [place] [address] Lito Vazquez PA-C [address] [place] [address] Dizziness*; Constipation, unspecified constipation type; Hypophosphatemia; Leukocytosis, unspecified type; Dysuria Allergies Active Allergy Reactions Severity Noted Date Comments Aspirin Anaphylaxis High 12/21/2016 Lip swelling Diphenhydramine Hcl Edema face/lips/tongue High 08/07 Ibuprofen Edema face/lips/tongue High 10/08/2002 Penicillins Unknown 10/08/2002 Red Dye Edema face/lips/tongue,Hives High 006 documented as of this encounter (statuses as of 10/21/2022) Medications Medication Sig Dispensed Refills Start Date [...] as of this encounter (statuses as of 10/21/2022) Active Problems Problem Noted Date Aortic ectasia [...] as of this encounter (statuses as of 10/21/2022) Resolved Problems Problem Noted Date Resolved Date [...] as of this encounter (statuses as of 10/21/2022) Immunizations Name Administration Dates Next Due COVID-19 [...] Sign Reading Time Taken Comments Blood Pressure 130/56 10/21/2022 10:37 AM EDT Pulse 93 10/21/2022 10:37 AM EDT Temperature 36.7 C (98.1 F) 10/21/2022 10:37 AM E DT Respiratory Rate - - Oxygen Saturation 97% 10/21/2022 10:37 AM EDT Inhaled Oxygen Concentration - - Weight 64.2 kg (141 lb 9.6 oz) 10/21/2022 10:37 AM EDT Height 160 cm (5' 3") 10/21/2022 10:37 AM EDT Body Mass Index 25.08 10/21/2022 10:37 AM EDT documented in this [...] as of this encounter Progress Notes * Lito Vazquez PA-C - 10/21/2022 10:36 AM EDT Images from the original note were not included. Subjective: Cherelle Sherman is a 82 year old female. Chief Complaint Patient presents with Flank Pain Was seen at [facility] 10/20/2022 thinking that she had a UTI. Dizziness HPI: 82 y/o female with hyperparathyroidism, HLD, prediabetes, asthma, aortic ectasia, HTN, GERD, IBS, CKD III, sjogren's syndrome with complaint of dizziness. Will happen when she stand up. Can happen at random. No real aggravating or alleviating factors. Can last a minute or two before it will resolve. Denies chest pain, WINTER, SOB, palpitations, hearing changes, ear pain. PMH: Patient Active Problem List Diagnosis Code Allergic rhinitis J30.9 HTN, goal below 140/90 I10 Asthma, mild persistent J45.30 Sjogren's syndrome (HCC) M35.00 Hereditary and idiopathic peripheral neuropathy G60.9 IBS (irritable bowel syndrome) K58.9 Hx of actinic keratosis Z87.2 Gastroesophageal reflux disease with esophagitis K21.00 MEDICATION USE AGREEMENT [id number] History of B-cell lymphoma Z85.72 Mixed hyperlipidemia [...] cancer Z85.828 Memory change R41.3 Aortic ectasia (HCC) I77.819 Current Outpatient Medications Medication Sig Dispense [...] hours prior to MRI 1 Tablet 0 Cetirizine HCl 10 MG Oral Tablet Take 1 Tablet by mouth in the morning. 90 Tablet 3 traMADol HCl 50 MG Oral Tablet (Ultram) Take 1 Tablet by mouth every 6 hours as needed (pain). 40 Tablet 2 amLODIPine Besylate 5 MG Oral Tablet (Norvasc) TAKE 1 TABLET EVERY MORNING 90 Tablet 1 Cefdinir 300 MG Oral Capsule (Omnicef) Take 1 Capsule by mouth in the morning and 1 Capsule before bedtime. Do all this for 10 days. For 10 days.. 20 Capsule 0 No current facility-administered medications for this visit. Review of patient's allergies indicates: Allergen Reactions Aspirin Anaphylaxis Lip swelling Benadryl [Diphenhydramine Hcl] Edema face/lips/tongue Ibuprofen Edema face/lips/tongue Red Dye Edema face/lips/tongue and Hives Penicillins Unknown All other review of systems reviewed and negative other than mentioned in HPI. Objective: BP 130/56 | Pulse 93 | Temp 36.7 C (98.1 F) | Ht 1.6 m (5' 3") | Wt 64.2 kg (141 lb 9.6 oz) | SpO2 97% | BMI 25.08 kg/m | BSA 1.69 m Results for orders placed or performed in visit on 10/20/22 URINALYSIS, POINT OF CARE (ENTER/EDIT) Result Value Ref Range Color, Urine Yellow Yellow or Light Yellow Clarity, Urine Clear Clear Glucose, Urine Negative Negative mg/dL Bilirubin, Urine Negative Negative Ketone, Urine Negative Negative mg/dL Specific [place], Urine 1.015 1.003 - 1.030 Blood, Urine Negative Negative pH, Urine 5.5 5.0 - 7.5 units Protein, Urine Negative Negative mg/dL Urobilinogen, Urine 0.2 0.2 - 1.0 mg/dL Nitrite, Urine Negative Negative Esterase, Urine Negative Negative Physical Exam Constitutional: General: She is not in acute distress. Appearance: Normal appearance. She is normal weight. She is not ill-appearing or toxic-appearing. HENT: Head: Normocephalic and atraumatic. Eyes: Extraocular Movements: Extraocular movements intact. Conjunctiva/sclera: Conjunctivae normal. Pupils: Pupils are equal, round, and reactive to light. Cardiovascular: Rate and Rhythm: Normal rate and regular rhythm. Heart sounds: Normal heart sounds. No murmur heard. No friction rub. No gallop. Pulmonary: Effort: Pulmonary effort is normal. Breath sounds: Normal breath sounds. No wheezing, rhonchi or rales. Abdominal: General: Bowel sounds are normal. There is no distension. Palpations: Abdomen is soft. There is no mass. Tenderness: There is no abdominal tenderness. There is no guarding or rebound. Neurological: General: No focal deficit present. Mental Status: She is alert. Mental status is at baseline. Cranial Nerves: No cranial nerve deficit. Sensory: No sensory deficit. Motor: No weakness. Coordination: Coordination normal. Gait: Gait normal. Deep Tendon Reflexes: Reflexes normal. MRI BRAIN WITHOUT CONTRAST Order: [id number] Status: Final result Visible to patient: Yes (seen) Next appt: 11/22/2022 at 11:00 AM in *Primary Care* (Kathy Sweeney MD) Dx: Confusion 1 Result Note 1 Follow-up Encounter Details Reading Physician Reading Date Result Priority Korinannalee Padilla Gracia Ly, DO [phone] 05/26/2022 Narrative & Impression EXAM BRAIN MRI WITHOUT CONTRAST - 05/23/2022 HISTORY Memory loss. COMPARISON None. TECHNIQUE Multiplanar, multisequence MRI of the brain was performed without intravenous contrast. FINDINGS No acute infarct, acute intracranial hemorrhage, mass effect, midline shift, hydrocephalus, or extra-axial fluid collection. Dilation of the lateral and, to a lesser extent, the 3rd ventricles is mildly disproportionate to the degree of cerebral volume loss. Patchy foci of T2 prolongation in the subcortical and periventricular white matter are nonspecific and may reflect sequela of chronic microvascular ischemia. The larger intracranial vascular flow voids are maintained. Mild mucosal thickening in the bilateral ethmoid air cells. A few scattered foci of fluid is noted in the left mastoid air cells. IMPRESSION IMPRESSION 1. No acute intracranial abnormality. 2. Dilation of the lateral and, to a lesser extent, the 3rd ventricles is mildly disproportionate to the degree of cerebral volume loss. Patchy foci of chronic microvascular ischemic changes. ASSESSMENT: Dizziness (Primary) Now having some incontinence with standing over last month. ? Related to constipation. Has not gonein a week. Will start Miralax daily. Chest stool burden with x-ray. Previous MRI notes some dilation of ventricles. If worsens, would recommend possible repeat MRI. Has follow up with neurology. Neuro exam negative today. She declines EKG. Rhythm sounds regular at good rate today. Constipation, unspecified constipation type - XR ABDOMEN 1 VIEW Hypophosphatemia - PHOSPHORUS; Future; Expected date: 10/21/2022 Leukocytosis, unspecified type Following with hematology Dysuria Complete antibiotic since started. Patient states she no longer wishes to see her current PCP secondary to previous visit after hospital where her son and her were not perceived to be given enough time to adequately answer the concerns they had. She would like to change. Given this will cancel her upcoming visit with PCP and have her rescheduled. Follow-up: Return if symptoms worsen or fail to improve. | Check-out note: Schedule visit with Dr. Sweeney to establish care. Cancel visit with Dr. Arteaga. Lito Vazquez PA-C documented in this encounter Nursing Notes * Tran Tejada LPN - 10/21/2022 10:37 AM EDT Chief Complaint Patient presents with Flank Pain Was seen at [facility] 10/20/2022 thinking that she had a UTI. Dizziness documented in this encounter Plan of Treatment Upcoming Encounters Date Type Specialty Care Team Description 11/22/2022 Office Visit Family Medicine Kathy Sweeney MD [address] [facility] [place], [place] [address] 12/12/2022 Office Visit Neurology Melia Avery PA-C [address] [place] [address] 01/04/2023 Laboratory Laboratory Katerina [address] [facility] [place] [address] 01/11/2023 Office Visit Hematology Oncology Bindu Jones MD [address] [place] [address] 03/17/2023 Office Visit Neurology Alejandro Oshea, DO [address] [place] [address] 06/12/2023 Office Visit Dermatology Samira Godoy MD [address] [facility] [place] [address] Pending Results Name Type Priority Associated Diagnoses Date /Time XR ABDOMEN 1 VIEW Medical Imaging Routine Constipation, unspecified constipation type 10/21/2022 11:13 AM EDT Scheduled Orders Name Type Priority Associated Diagnoses Orde r Schedule PHOSPHORUS Lab Routine Hypophosphatemia Expected: 10/21/2022 (Approximate), Expires: 10/21/2023 Health Maintenance Due Date Last Done Comments COVID-19 Vaccine (3 - Pfizer series) 06/16/2020 04/21/2020, 03/31/2020 *BISPHONATE OR OTHER ACCEPTABLE MEDICATION NEEDED FOR OSTEOPOROSIS (REFER TO SMARTSET #1146) 05/09/2022 Influenza Vaccine (FLU shot) (#1) 2022 11/12/2021, 10/13/2020, 10/29/2019, Additional history exists Albumin/Creatinine Ratio 11/12/2022 11/12/2021, 06/06 HbA1c 11/12/2022 11/12/2021, 0908/2020, 04/06/2020, Additional history exists GFR 11/19/2022 05/20/2022, 04/2022, 05/08/2022, Additional history exists Depression Screening 05/07/2023 05/06/2022, 09/03/19 CKD PHOS USE SMARTSET 57802 05/09/2023 05/08/2022, 0 10/13/2020 CKD HGB USE SMARTSET 10681 05/21/202305/20, 05/20/2022, 05/09/2022, Additional history exists DXA Scan 11/11/2023 11/10/2021, 10/08, 07/27/2015, Additional history exists COLONOSCOPY-EVERY 5 YRS AGES 18-100 07/08/2026 07/08/2021, 07/08/2021, 11/19/2015, Additional history exists DTaP,Tdap,and Td Vaccines (2 - Td or Tdap) 11/07/2026 11/07/2016, 07/16/2010 Pneumococcal Vaccine: 65+ Years Completed 09/02/2014, 08/30/2010 Zoster Vaccines Completed 11/21/2019, 080 08/2019, 07/25/2007 VITAMIN D LEVEL ONCE IN A LIFETIME-USE SMARTSET# 59530 Completed 10/13/2020, 12/26/2019, 06/21/2018, Additional history exists [...] this encounter Medical Devices Implanted Type Area Chief Cook Device Identifier Shelf Expiration Date Model / Serial / Lot Alloderm 2x4 Sheet [id number] (8 Units) - [id number] [place]ed:[place] 8 [place] [facility] [place] Human N/A: Esophagus LIFE CELL VICENTA 05/06/2012 [id number] / / [id number] documented as of this encounter Visit Diagnoses Diagnosis Dizziness- Primary Dizziness and giddiness Constipation, unspecified constipation type Hypophosphatemia Disorders of phosphorus metabolism Leukocytosis, unspecified type Dysuria documented in this encounter Advance Directives Documents on File Type Date Recorded 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 Care Teams Press Washer Relationship Specialty Start Date End Date Armando Arteaga MD [address] [place] [address] [place] [address] PCP - General Internal Medicine 07/26/10 documented as of this encounter
--- OUTSIDE RECORDS SUMMARY | 2023-03-19 10:56 | External Medical Summary ---
Author Name Unknown Address Unknown Organization [id number]:[facility] [place] [address] [facility] [address] Laboratory Report Ordering Provider Test Date Status DIVINA FLORES 11/22/2022 11:57:56 Final Observation Date Value Abnormality Reference (Units ) Status HbA1C 11/22/2022 11:57:56 5.9 Above high normal 4. 0-5.6 (%) Final The use of HbA1c to monitor glycemic status is based on normal hemoglobin and HbA composition. This test should not be used in patients with abnormal hemoglobin that affects the half life of the red blood cell or the in vivo glycation rates. Glucose, estimated average 11/22/2022 11:57:56 123 <126 (mg/dL) Final Performing Location [facility] [place] [address] [facility] [address]
--- OUTSIDE RECORDS SUMMARY | 2023-03-19 10:56 | External Medical Summary ---
Author Name Unknown Address Unknown Organization [id number]:[facility] [place] [address] [facility] [address] Laboratory Report Ordering Provider Test Date Status BESS PRABHAKAR 10/20/2022 11:26:34 Final Observation Date Value Abnormality Reference (Units) Status Bacteria identified in Specimen by Culture 10/20/2022 11:26:34 No significant growth Final Test: Culture, Urine, Quanti tative
Specimen Source: Urine, Clean Catch
Specimen Type: Urine
Specimen Date: 10/20/2022 11:26 AM
Result Date: 10/21/2022 3:55 PM
Result Status: Final result
Resulting Lab: [facility] [place]
[address]
[place] [address]

CULTURE

No significant growth

null Performing Location [facility] [place] [address] [facility] [address]
--- OUTSIDE RECORDS SUMMARY | 2023-03-19 10:56 | External Medical Summary | Summary of Care ---
Author Name Unknown Organization [facility] Address [address] [place] [address] Phone [phone] Care Team Providers Care Brand Development Manager Name Role Phone Armando Arteaga MD Primary Care Provider + Reason for Visit * Reason Comments eRx-Medication Refill Encounter Details Date Type Department Care Team Description 10/03/2022 Refill General Internal Medicine [facility] [address] [place] [address] Armando Arteaga MD [address] [place] [address] HTN, goal below 140/90; Intermittent lightheadedness Allergies Active Allergy Reactions Severity Noted Date Comments Aspirin Anaphylaxis High 12/21/2016 Lip swelling Diphenhydramine Hcl Edema face/lips/tongue High 08/07 Ibuprofen Edema face/lips/tongue High 10/08/2002 Penicillins Unknown 10/08/2002 Red Dye Edema face/lips/tongue,Hives High 006 documented as of this encounter (statuses as of 10/03/2022) Medications Medication Sig Dispensed Refills Start Date End Date Status polyethylene glycol 3350 (MIRALAX) 255 gram powderIndications:Ir ritable bowel syndrome with constipation Take 17 g by mouth as needed for Constipation. Dissolve one heaping tablespoon in 8 ounces of water or juice. 1 Bottle 2 9 Active Albuterol Sulfate HFA 108 (90 Base) MCG/ACT Inhalation Aerosol SolutionIndications: Mild persistent asthma without complication USE 2 INHALATIONS ORALLY EVERY 4 HOURS NEEDED FORWHEEZING 54 g 2 2 Active traZODone HCl 50 MG Oral Tablet [...] before bedtime. 90 Tablet 3 2 Active LORazepam 0.5 MG Oral Tablet (Ativan)Indications: Claustrophobia Take 1 pill 0.5 hours prior to MRI 1 Tablet 0 3 Active Additional Information Patient not taking.Reported on [...] EVERY MORNING 90 Tablet 1 3 Active amLODIPine Besylate 5 MG Oral Tablet (Norvasc)Indications :HTN, goal below 140/90,Intermittent lightheadedness Take 1 Tablet by mouth in the morning. 90 Tablet 1 3 10/04/19 23 Discontinued documented as of this encounter (statuses as of 10/03/2022) Active Problems Problem Noted Date Aortic ectasia [...] as of this encounter (statuses as of 10/03/2022) Resolved Problems Problem Noted Date Resolved Date [...] as of this encounter (statuses as of 10/03/2022) Immunizations Name Administration Dates Next Due COVID-19 mRNA, LNP-s, No Pre serve, 2-Dose Series (Oculogica) 04/21/2020,03/31/2020 Pneumococcal Conjugate Vacc, 13 Valent (Prevnar) [...] encounter Miscellaneous Notes * Telephone Encounter - Lana Vargas [facility] - 10/03/2022 9:55 PM EDT Signed Prescriptions: Disp Refills amLODIPine Besylate 5 MG Oral Tablet (Norv*90 Tab*1 Sig: TAKE 1 TABLET EVERY MORNINGAuthorizing Provider: ARMANDO ARTEAGA User: LANA VARGAS documented in this encounter Plan of Treatment Upcoming Encounters Date Type Specialty Care Team Description 12/06/2022 Office Visit Internal Medicine Armando Arteaga MD [address] [place] [address] 12/12/2022 Office Visit Neurology Melia Avery PA-C [address] [place] [address] 01/04/2023 Laboratory Laboratory [place] [address] [place] [address] 01/11/2023 Office Visit Hematology Oncology Bindu Jones MD [address] [place] [address] 03/17/2023 Office Visit Neurology Alejandro Oshea, DO [address] [place] [address] 06/12/2023 Office Visit Dermatology Samira Godoy MD [address] [place] [address] Health Maintenance Due Date Last Done Comments COVID-19 Vaccine (3 - Pfizer series) 06/16/2020 04/21/2020, 03/31/2020 *BISPHONATE OR OTHER ACCEPTABLE MEDICATION NEEDED FOR OSTEOPOROSIS (REFER TO SMARTSET #1146) 05/09/2022 Influenza Vaccine (FLU shot) (#1) 2022 11/12/2021, 10/13/2020, 10/29/2019, Additional history exists Albumin/Creatinine Ratio 11/12/2022 11/12/2021, 06/06 HbA1c 11/12/2022 11/12/2021, 0908/2020, 04/06/2020, Additional history exists GFR 11/19/2022 05/20/2022, 04/2022, 05/08/2022, Additional history exists Depression Screening, Annual for Pts 12 and Over 05/07/2023 05/06/2022, 09/02/2014 CKD PHOS USE SMARTSET 04543 05/09/2023 05/08/2022, 0 10/13/2020 CKD HGB USE SMARTSET 86841 05/21/202305/20, 05/20/2022, 05/09/2022, Additional history exists DXA Scan 11/11/2023 11/10/2021, 10/08, 07/27/2015, Additional history exists COLONOSCOPY-EVERY 5 YRS AGES 18-100 07/08/2026 07/08/2021, 07/08/2021, 11/19/2015, Additional history exists DTaP,Tdap,and Td Vaccines (2 - Td or Tdap) 11/07/2026 11/07/2016, 07/16/2010 Pneumococcal Vaccine: 65+ Years Completed 09/02/2014, 08/30/2010 Zoster Vaccines Completed 11/21/2019, 0808/2019, 07/25/2007 VITAMIN D LEVEL ONCE IN A LIFETIME-USE SMARTSET# 63987 Completed 10/13/2020, 12/26/2019, 06/21/2018, Additional history exists [...] this encounter Medical Devices Implanted Type Area Plant Pathologist Device Identifier Shelf Expiration Date Model / Serial / Lot Alloderm 2x4 Sheet [id number] (8 Units) - [id number] Implanted:Qty : 8 on 11/15/2010 [place] [facility] [place] - Human N/A: Esophagus LIFE CELL picsell 05/06/2012 [id number] / / [id number] documented as of this encounter Visit Diagnoses Diagnosis HTN, goal below 140/90 Unspecified essential hypertension Intermittent lightheadedness Dizziness and giddiness documented in this encounter Advance Directives Documents on File Type Date Recorded 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 Care Teams Brand Development Manager Relationship Specialty Start Date End Date Armando Arteaga MD [address] [place] [address] PCP - General Internal Medicine 07/26/10 documented as of this encounter
--- OUTSIDE RECORDS SUMMARY | 2023-03-19 10:56 | External Medical Summary ---
Author Name Unknown Address Unknown Organization K01[place] [place] [address] [facility] [address] Laboratory Report Ordering Provider Test Date Status DIVINA FLORES 11/22/2022 11:57:56 Final Observation Date Value Abnormality Reference (Units ) Status Triglyceride 11/22/2022 11:57:56 108 <=174 ( mg/dL) Final Triglyceride Reference Range s (mg/dL):
<150 Acceptable
150-174 Borderline high
175-499 High
>=500 Very high Cholesterol 11/22/2022 11:57:56 175 <200 (mg /dL) Final Total Cholesterol Reference Ranges (mg/dL):
<200 Desirable
200-239 Borderline high
>=240 High HDL 11/22/2022 11:57:56 60 >49 (mg/dL ) Final HDL Cholesterol Reference Ra nges (mg/dL):
>=60 High (Desirable)
<50 Low (Undesirable) For Females
<40 Low (Undesirable) For Males NON-HDL CHOLESTEROL 11/22/2022 11:57:56 115 <=159 (mg/dL) Final Non-HDL Cholesterol Referenc e Range (mg/dL):
<100 Target level for high risk ASCVD patient
<130 Optimal for general population
130-159 Near optimal for general population
160-189 Borderline High
190-219 High
>=220 Very High LDL, (calculated) 11/22/2022 11:57:56 93 <= 129 (mg/dL) Final LDL Cholesterol Reference Ra nges (mg/dL):
<70 Target level for high risk ASCVD patient
<100 Optimal for general population
100-129 Near optimal for general population
130-159 Borderline high
160-189 High
>=190 Very high Performing Location [facility] [place] [address] [facility] [address]
--- OUTSIDE RECORDS SUMMARY | 2023-03-19 10:56 | External Medical Summary | Summary of Care ---
Author Name Unknown Organization [facility] Address [address] [place] [address] Phone [phone] Care Team Providers Care Platform Worker Name Role Phone Armando Arteaga MD Primary Care Provider + Reason for Visit * Reason Comments eRx-Medication Refill Encounter Details Date Type Department Care Team Description 11/02/2022 Refill General Internal Medicine [facility] [address] [facility] [place] [address] Armando Arteaga MD [address] [place] [address] Mild persistent asthma without complication Allergies Active Allergy Reactions Severity Noted Date Comments Aspirin Anaphylaxis High 12/21/2016 Lip swelling Diphenhydramine Hcl Edema face/lips/tongue High 08/07 Ibuprofen Edema face/lips/tongue High 10/08/2002 Penicillins Unknown 10/08/2002 Red Dye Edema face/lips/tongue,Hives High 006 documented as of this encounter (statuses as of 11/02/2022) Medications Medication Sig Dispensed Refills Start Date [...] to MRI 1 Tablet 0 3 Active Cetirizine HCl 10 MG Oral Tablet [...] NEEDED FORWHEEZING 54 g 3 3 Active Albuterol Sulfate HFA 108 (90 Base) MCG/ACT Inhalation Aerosol SolutionIndications: Mild persistent asthma without complication USE 2 INHALATIONS ORALLY EVERY 4 HOURS NEEDED FORWHEEZING 54 g 2 2 11/03/19 23 Discontinued documented as of this encounter (statuses as of 11/02/2022) Active Problems Problem Noted Date Aortic ectasia [...] as of this encounter (statuses as of 11/02/2022) Resolved Problems Problem Noted Date Resolved Date [...] as of this encounter (statuses as of 11/02/2022) Immunizations Name Administration Dates Next Due COVID-19 mRNA, LNP-s, No Pre serve, 2-Dose Series (bluepulse) 04/21/2020,03/31/2020 Pneumococcal Conjugate Vacc, 13 Valent (Prevnar) [...] encounter Miscellaneous Notes * Telephone Encounter - Mark Jones RPh - 11/02/2022 1:19 PM EDT Signed Prescriptions: Disp Refills Albuterol Sulfate HFA 108 (90 Base) MCG/AC*54 g 3 Sig: USE 2 INHALATIONS ORALLY EVERY 4 HOURS NEEDED FORWHEEZINGAuthorizing Provider: ARMANDO ARTEAGA User: MARK JONES documented in this encounter Plan of Treatment Upcoming Encounters Date Type Specialty Care Team Description 11/22/2022 Office Visit Family Medicine Kathy Sweeney MD [address] [place] [address] 01/04/2023 Laboratory Laboratory Katerina Crum [address] [facility] [place] [address] 01/11/2023 Office Visit Hematology Oncology Bindu Jones MD [address] [place] [address] 03/17/2023 Office Visit Neurology Alejandro Oshea, DO [address] [place] [address] 06/12/2023 Office Visit Dermatology Samira Godoy MD [address] [facility] [place] [address] Health Maintenance Due Date Last Done Comments [...] 05/06/2022, 09/03/19 15 CKD PHOS USE SMARTSET 17179 05/09/2023 05/08/2022, 0 10/13/2020 CKD HGB USE SMARTSET 16456 05/21/2023 04/14 /2023, 05/20/2022, 05/09/2022, Additional history exists DXA Scan 11/11/2023 11/10/2021, 10/08, 07/27/2015, Additional history exists COLONOSCOPY-EVERY 5 YRS AGES 18-100 07/08/2026 07/08/2021, 07/08/2021, 11/19/2015, Additional history exists DTaP,Tdap,and Td Vaccines (2 - Td or Tdap) 11/07/2026 11/07/2016, 07/16/2010 Pneumococcal Vaccine: 65+ Years Completed 09/02/2014, 08/30/2010 Zoster Vaccines Completed 11/21/2019, 08/2019, 07/25/2007 VITAMIN D LEVEL ONCE IN A LIFETIME-USE SMARTSET# [id number] Completed 10/13/2020, 12/26/2019, 06/21/2018, Additional history exists [...] this encounter Medical Devices Implanted Type Area Logistics Analytics Manager Device Identifier Shelf Expiration Date Model / Serial / Lot Alloderm 2x4 Sheet [id number] (8 Units) - [id number] Implanted:Qty : 8 on 11/15/2010 at [place] [facility] [place] Tissue - Human N/A: Esophagus [employer] 05/06/2012 [id number] / / [id number] documented as of this encounter Visit Diagnoses Diagnosis Mild persistent asthma without complication Unspecified asthma documented in this encounter Advance Directives Documents on File Type Date Recorded 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 Care Teams Platform Worker Relationship Specialty Start Date End Date Armando Arteaga MD [address] [place] [id number] PCP - General Internal Medicine 07/26/10 documented as of this encounter
--- NOTE | 2023-03-19 11:17 | Emergency Department Note ---
Impression & Plan Syncope, Acute UTI, Bradycardia, Leukocytosis ED Provider Note NAME: HALLE HAMMOND AGE: 82 SEX: F : 1940 ARRIVES VIA: Ambulance INFORMANT: [Patient][ems, nursing] ED PROVIDER(S): [Mane Kennedy MD] CHIEF COMPLAINT: Syncope HISTORY OF PRESENT ILLNESS: The patient is an 82-year-old female who presents to the ER for a syncopal spell. She began feeling unwell at religion. She was described as pope in color. She had what seemed to be a brief syncopal event, may be 2. Her heart rate was noted to be in the 30s or 40s at 1 point. The patient had a blood sugar of 160 per the EMS crew. The patient states that she just began feeling poorly at religion. She was not having chest pain. She did feel somewhat sweaty though. The patient had felt fine this morning. She had a boost before going to religion. She has no history of recurrent syncope. Of note, the patient's son arrived and checked her pills at home and he feels that she may have taken her morning and nighttime medications this a.m. by accident--this would include taking tramadol and trazodone. He also reports the patient started a new medication [id number] for UTI. PMHx/PSHx/Social Hx: See Below PHYSICAL EXAM: GENERAL: Patient is in no acute distress. HEENT: No acute trauma, normocephalic atraumatic, mucous membranes moist, no nasal congestion. NECK: No stridor, no adenopathy, no meningismus, trachea is midline. LUNGS: Clear to auscultation bilaterally, no wheeze, no rhonchi, breath sounds equal. HEART: 2/6 systolic murmur, regular rate and rhythm. ABDOMEN: Soft, nontender, no peritonitis. EXTREMITIES: No cyanosis, full range of motion of all the joints without pain or difficulty. NEUROLOGIC: Oriented x 3, no acute motor or sensory deficits, no focal weakness. SKIN: No jaundice, no diaphoresis. DIFFERENTIAL DIAGNOSIS: Vasovagal syncope, dehydration, anemia, electrolyte imbalance, UTI, dysrhythmia, among others. EMERGENCY DEPARTMENT PROCEDURES: MEDICAL DECISION MAKING: There is a moderate leukocytosis, this certainly could be consistent with infection. There is a normal hemoglobin and platelet count. There is no renal failure or significant electrolyte abnormality. No concerning liver enzyme elevation. The patient appeared to be in a euthyroid state. ECG shows a normal sinus rhythm, no ischemia or dysrhythmia. Cardiac enzyme testing x 1 is not consistent with acute cardiac injury. Chest x-ray does not show mediastinal widening, pneumonia or pneumothorax. Urinalysis does show findings of infection. COVID, influenza and RSV test were negative. The patient presented with syncope, bradycardia. She was found to have a UTI with a leukocytosis. Given the bradycardia, given the syncope, given the infectious findings, I do think a hospital stay for further workup is warranted. The patient was given 1 L of IV saline. She received 2 g of IV ceftriaxone as antibiotic coverage. She is currently resting comfortably and doing well. In short, I suspect the syncopal episode today was vasovagal. Further cardiac monitoring though is warranted. Prior/Outside records/notes reviewed: Today's EMS notes describing her complaints and transport to this ED. ECG per my interpretation: Indication was syncope. The ECG shows a normal sinus rhythm with a rate of 72. There is poor R wave progression. There is no ST elevation, no PVCs. QTc is 448. Compared to an ECG from 28 April 2022, poor R wave progression is now present. Continuous Cardiac Monitoring per my interpretation: An order was placed for continuous cardiac monitoring. The monitor shows a rate of 73 with normal sinus rhythm. Imaging/x-ray results per my interpretation: Chest x-ray does not show mediastinal widening, pneumonia or pneumothorax. Chronic Medical/Social conditions affecting care: Advanced age. Care/Management discussed with: Case management, the on-call hospitalist. Level of care consideration(s): After review of the information above and other included data: --I believe the patient requires escalation of care to admission DISPOSITION: Admission Past Med/Surg History Medical History Hyperparathyroidism B-cell lymphoma Osteopenia Asthma hx-"no problems for a long time" GERD (gastroesophageal reflux disease) Hyperlipidemia Hypertension Surgical History History of cataract surgery RT History of laparotomy for removal ectopic History of esophagogastroduodenoscopy (EGD) Hx of colonoscopy Social History Smoking Status: Never smoker Second Hand Exposure: No; Do You Dip or Chew Tobacco: No; Hx Alcohol Use: No Preferred Language: [place] Communication Ability: Effective Gang Plank Workman Required: No Beliefs That Will Affect Care: None Current Living Situation: Alone Current Living Situation Comment: Son lives next door Feels Safe at Home: Yes Assistive Devices: Glasses Allergies Allergies Allergy/AdvReac Type Severity Reaction Status Date / Time aspirin Allergy Mild lip sweling Verified 04/28/22 11:25 Penicillins Allergy Mild UNKNOWN Verified 04/28/22 11:26 diphenhydramine Allergy Edema of Verified 04/28/22 11:25 [From Benadryl] face, lips, tongue ibuprofen Allergy edema of Verified 04/28/22 11:25 face, lips, tongue red dye Allergy Edema of Verified 04/28/22 11:25 face, lips & tongue. Hives Home Meds Home Medications Medication Instructions Recorded Confirmed cetirizine 10 mg tablet (Zyrtec) 10 mg PO QAM 12/15/21 03/19/23 lisinopril 20 mg tablet 20 mg PO QAM 12/15/21 03/19/23 montelukast 10 mg tablet 10 mg PO HS 12/15/21 03/19/23 (Singulair) atorvastatin 10 mg tablet 10 mg PO DAILY 04/28/22 03/19/23 tramadol 50 mg tablet 50 mg PO Q6H PRN Pain 04/28/22 03/19/23 trazodone 50 mg tablet 50 mg PO HS 04/28/22 03/19/23 Previous Rx's Medication Instructions Recorded amlodipine 5 mg tablet 5 mg PO DAILY #30 tabs 04/29/22 Results & Data (ED) Vital Signs Vital Signs - 24 hr 03/19/23 10:50 03/19/23 11:27 03/19/23 12:00 Temperature 36.5 C Temperature Source Oral Pulse Rate 73 72 Pulse Rate [Left Finger] 85 Pulse Rhythm Regular Pulse Rhythm [Left Finger] Regular Pulse Strength Normal Pulse Strength [Left Finger] Normal Respiratory Rate 14 20 Respiratory Effort / Characteristics Non-Labored Spontaneous Non-Labored Spontaneous Respiratory Depth Normal Normal Respiratory Pattern Regular Regular Blood Pressure 117/56 L Blood Pressure [Left Arm] 139/65 Blood Pressure Mean 76 Blood Pressure Mean [Left Arm] 89 Blood Pressure Position Lying Blood Pressure Position [Left Arm] Sitting Pulse Oximetry 95 98 Oxygen Delivery Method Room Air Sepsis Recent Fever Within 48 Hours No Sepsis New/Unexplained Change in Mental Status No Sepsis Action Taken by Nursing No Action Required Home Medications Current Medication List: was personally reviewed by me Laboratory Data Attestation: I reviewed the patient's lab results. 03/19/23 11:13 03/19/23 11:13 Lab Results 03/19/23 03/19/23 03/19/23 Range/Units 11:13 11:58 12:51 WBC 16.78 H (4.8-10.8) K/ul RBC 5.13 (4.20-5.40) M/uL Hgb 14.1 (12.0-16.0) g/dl Hct 43.4 (37.0-47.0) % MCV 84.6 (80.0-100.0) fL MCH 27.5 (25.0-34.0) pg MCHC 32.5 (32.0-36.0) g/dL RDW Std Deviation 42.5 (36.4-46.3) fL RDW Coeff of Estrella 13.8 (11.5-14.5) % Plt Count 255 (130-400) K/uL MPV 9.0 L (9.4-12.4) fL Immature Gran % (Auto) 0.7 % Neut % (Auto) 81.9 % Lymph % (Auto) 10.7 % Cedar % (Auto) 5.8 % Eos % (Auto) 0.3 % Baso % (Auto) 0.6 % Neut # (Auto) 13.76 H (1.40-6.50) K/uL Lymph # (Auto) 1.79 (1.20-3.40) K/uL Cedar # (Auto) 0.97 H (0.11-0.59) K/uL Eos # (Auto) 0.05 (0.00-0.50) K/uL Baso # (Auto) 0.10 (0.00-0.20) K/uL Immature Gran # (Auto) 0.11 (0.01-0.20) K/uL Sodium 139 (136-145) mmol/L Potassium 4.1 (3.5-5.1) mmol/L Chloride 107 (98-107) mmol/L Carbon Dioxide 24 (21-32) mmol/L Anion Gap 8 (3-11) BUN 15 (6-23) mg/dl Creatinine 0.80 (0.6-1.2) mg/dl Est Cr Clr Drug Dosing 59.5 ml/min Est GFR ( Amer) 79.6 ml/min Est GFR (Non-Af Amer) 68.7 ml/min BUN/Creatinine Ratio 18.8 (10-20) Glucose 146 H (70-99(Fasting)) mg/dl Calcium 9.9 (8.6-10.3) mg/dl Magnesium 2.0 (1.7-2.4) mg/dl Total Bilirubin 0.5 (0.2-1.0) mg/dl AST 18 (13-39) U/L ALT 14 (7-52) U/L Alkaline Phosphatase 41 (34-104) U/L Troponin I High Sens 2.5 (0-14) pg/ml Total Protein 6.8 (6.0-8.3) gm/dl Albumin 4.2 (3.4-5.0) gm/dl Globulin 2.6 (2.5-4.0) gm/dl Albumin/Globulin Ratio 1.6 (0.9-2) TSH 1.255 (0.300-4.500) uIu/ml Urine Color Yellow Urine Appearance Cloudy A (Clear) Urine pH 7.5 (4.5-7.5) Ur Specific Terral 1.015 (1.000-1.030) Urine Protein Negative (Negative) Urine Glucose (UA) Negative (Negative) Urine Ketones Trace H (Negative) Urine Blood Trace H (Negative) Urine Nitrite Positive A (Negative) Urine Bilirubin Negative (Negative) Urine Urobilinogen Negative (Negative) Ur Leukocyte Esterase 3+ H (Negative) Urine WBC (Auto) >30 H (0-5) /hpf Urine RBC (Auto) 0-4 (0-4) /hpf U Hyaline Cast (Auto) 1-5 (0-5) /lpf U Epithel Cells (Auto) 10-20 H (0-5) /lpf Urine Bacteria (Auto) 4+ H (Negative) SARS-CoV-2 (PCR) NEGATIVE (Negative) Influenza Type A (PCR) Negative (Neg) Influenza Type B (PCR) Negative (Neg) RSV (RT-PCR) Negative (Neg) Administered Medications Sodium Chloride (Nss) 1,000 mls @ 100 mls/hr IV .Q10H ROSEANN Stop: 03/20/23 20:29 Last Admin: 03/19/23 15:33 Dose: 100 mls/hr Documented By: FRANSICO Discontinued Medications Sodium Chloride (Nss) 1,000 mls @ 999 mls/hr IV .Q1H1M ROSEANN Stop: 03/19/23 12:15 Last Infusion: 03/19/23 12:36 Dose: Infused Documented By: Admin: 03/19/23 11:35 Dose: 999 mls/hr Documented By: CHRISTIANO Ceftriaxone Sodium (Rocephin) 2,000 mg in 50 mls @ 100 mls/hr IV NOW STA Stop: 03/19/23 13:49 Last Infusion: 03/19/23 14:30 Dose: Infused Documented By: Admin: 03/19/23 13:56 Dose: 100 mls/hr Documented By: CHRISTIANO Imaging Data Radiologist's Impression: Chest X-Ray 03/19/23 11:12 XR chest 1V portable CLINICAL HISTORY: weakness COMPARISON STUDY: Chest radiograph April 28, 2022. FINDINGS: Lung volumes are normal. There is no consolidation to suggest pneumonia. Minimal left basilar opacity favors atelectasis. There is no pneumothorax or pleural effusion. Cardiac size is normal. Mediastinal contours are normal. There is no evidence for pulmonary edema. IMPRESSION: No acute cardiopulmonary findings. ACT 112: Negative or not required by law. Electronically signed by: Teo Araujo M.D. 03/19/2023 11:45 AM Discharge Plan Visit Data Chief Complaint: Syncope ED Provider: Mane Kennedy Discharge Problem: Syncope, Acute UTI, Bradycardia, Leukocytosis Patient Disposition: Admitted As Inpatient Condition: Fair Discharge Instructions Interventions: ED Discharge Assessment Last Done: 03/19/23 16:28 Discharge Problem: Syncope Qualifiers: Syncope type: unspecified Qualified Code(s): R55 - Syncope and collapse Leukocytosis Qualifiers: Leukocytosis type: unspecified Qualified Code(s): D72.829 - Elevated white blood cell count, unspecified
[2023-03-19] MEDS: SODIUM CHLORIDE 0.9% 1,000 ML IV SCH ×2 (11:35→15:33)
[2023-03-19 11:37] LABS: Basophils % (auto) 0.6 %; Eosinophils # (auto) 0.05 K/uL (0.00-0.50); Eosinophils % (auto) 0.3 %; Hematocrit (blood only) 43.4 % (37.0-47.0); Hemoglobin 14.1 g/dl (12.0-16.0); Immature Granulocytes # (auto) 0.11 K/uL (0.01-0.20); Immature Granulocytes % (auto) 0.7 %; Lymphocytes # (auto) 1.79 K/uL (1.20-3.40); Lymphocytes % (auto) 10.7 %; Mean Corpuscular Hemoglobin 27.5 pg (25.0-34.0); Mean Corpuscular Hgb Conc 32.5 g/dL (32.0-36.0); Mean Corpuscular Volume 84.6 fL (80.0-100.0); Monocytes # (auto) 0.97 K/uL (0.11-0.59); Monocytes % (auto) 5.8 %; Neutrophils # (auto) 13.76 K/uL (1.40-6.50); Neutrophils % (auto) 81.9 %; Platelet Count 255 K/uL (130-400); RDW Coefficient of Variation 13.8 % (11.5-14.5); RDW Standard Deviation 42.5 fL (36.4-46.3); Red Blood Count 5.13 M/uL (4.20-5.40); White Blood Count 16.78 K/ul (4.8-10.8)
--- NOTE | 2023-03-19 11:48 | XRay Report ---
XR chest 1V portable CLINICAL HISTORY: weakness COMPARISON STUDY: Chest radiograph April 28, 2022. FINDINGS: Lung volumes are normal. There is no consolidation to suggest pneumonia. Minimal left basil ar opacity favors atelectasis. There is no pneumothorax or pleural effusion. Cardiac size is normal. Mediastinal contours are normal. There is no evidence for pulmonary edema. IMPRESSION: No acute cardiopulmonary findings. ACT 112: Negative or not required by law. Electronically signed by: Teo Araujo M.D. 03/19/2023 11:45 AM
[2023-03-19 11:50] LABS: Albumin Globulin Ratio 1.6 (0.9-2); Albumin Level 4.2 gm/dl (3.4-5.0); BUN Creatinine Ratio 18.8 (10-20); Bilirubin,Total 0.5 mg/dl (0.2-1.0); Calcium 9.9 mg/dl (8.6-10.3); Creatinine Clr Calc Pharmacy 59.5 ml/min; Est GFR (African American) 79.6 ml/min; Est GFR (Non-African American) 68.7 ml/min; Globulin 2.6 gm/dl (2.5-4.0); Potassium 4.1 mmol/L (3.5-5.1); Total Protein 6.8 gm/dl (6.0-8.3)
[2023-03-19 11:55] LABS: Troponin I High Sensitivity 2.5 pg/ml (0-14)
[2023-03-19 12:05] LABS: Thyroid Stimulating Hormone 1.255 uIu/ml (0.300-4.500)
[2023-03-19 12:42] LABS: Influenza A virus by PCR Negative (Neg); Influenza B virus by PCR Negative (Neg); RSV by PCR Negative (Neg); SARS CoV2 RNA(COVID-19) Ceph NEGATIVE (Negative)
[2023-03-19 13:13] LABS: Appearance Urine Cloudy (Clear); Bacteria Urine Automated 4+ (Negative); Bilirubin Urine Negative (Negative); Blood Urine Trace (Negative); Color Urine Yellow; Glucose Urine UA Negative (Negative); Ketones Urine Trace (Negative); Leukocyte Esterase Urine 3+ (Negative); Nitrite Urine Positive (Negative); Protein Urine Negative (Negative); RBC Urine Automated 0-4 /hpf (0-4); Specific Gravity Urine 1.015 (1.000-1.030); Urobilinogen Urine Negative (Negative); WBC Urine Automated >30 /hpf (0-5); pH Urine 7.5 (4.5-7.5)
--- NOTE | 2023-03-19 13:46 | History & Physical Report ---
Date of Service March 19, 2023 History of Present Illness Chief Complaint: Syncopal episode Primary Care Provider: Kathy Sweeney MD Allergies Allergy/AdvReac Type Severity Reaction Status Date / Time aspirin Allergy Mild lip sweling Verified 04/28/22 11:25 Penicillins Allergy Mild UNKNOWN Verified 04/28/22 11:26 diphenhydramine Allergy Edema of Verified 04/28/22 11:25 [From Benadryl] face, lips, tongue ibuprofen Allergy edema of Verified 04/28/22 11:25 face, lips, tongue red dye Allergy Edema of Verified 04/28/22 11:25 face, lips & tongue. Hives Home Medications Medication Instructions Recorded Confirmed Type cetirizine 10 mg tablet (Zyrtec) 10 mg PO QAM 12/15/21 03/19/23 History lisinopril 20 mg tablet 20 mg PO QAM 12/15/21 03/19/23 History montelukast 10 mg tablet 10 mg PO HS 12/15/21 03/19/23 History (Singulair) atorvastatin 10 mg tablet 10 mg PO DAILY 04/28/22 03/19/23 History tramadol 50 mg tablet 50 mg PO Q6H PRN Pain 04/28/22 03/19/23 History trazodone 50 mg tablet 50 mg PO HS 04/28/22 03/19/23 History amlodipine 5 mg tablet 5 mg PO DAILY #30 tabs 04/29/22 03/19/23 Rx Past Med/Surg History Medical History (Updated 04/28/22 @ 11:23 by HUMBERTO Durán) Hyperparathyroidism B-cell lymphoma Osteopenia Asthma hx-"no problems for a long time" GERD (gastroesophageal reflux disease) Hyperlipidemia Hypertension Surgical History History of cataract surgery RT History of laparotomy for removal ectopic History of esophagogastroduodenoscopy (EGD) Hx of colonoscopy Social History Smoking Status: Never smoker Second Hand Exposure: No; Do You Dip or Chew Tobacco: No; Hx Alcohol Use: No Preferred Language: Ukrainian Communication Ability: Effective Drag Sawyer Required: No Beliefs That Will Affect Care: None Current Living Situation: Alone Current Living Situation Comment: Son lives next door Feels Safe at Home: Yes Assistive Devices: Glasses Results & Data Results & Data Vital Signs (Past 12 Hours) Vital Signs Temp Pulse Pulse Resp BP BP Pulse Ox 03/19/23 12:00 85 20 139/65 98 03/19/23 11:27 72 03/19/23 10:50 36.5 C 73 14 117/56 L 95 O2 Del Method 03/19/23 12:00 03/19/23 11:27 03/19/23 10:50 Room Air
[2023-03-19] MEDS: cefTRIAXone SODIUM 2,000 MG/50 ML BAG IV STA (13:56)
--- NOTE | 2023-03-19 14:39 | History & Physical Report ---
Date of Service March 19, 2023 Assessment & Plan (1) Syncope and collapse: Plan: Was brought in with syncopal episode at discharge Likely vasovagal and contributed by mild dehydration and also UTI Doubt any neurogenic cause Will give cautious amount of intravenous fluid Will observe in the telemetry unit (2) Bradycardia: Plan: Paramedics noted to have a bradycardia of around 30s EKG in the ER is sinus rhythm with a rate of 72 No arrhythmias and/or ectopics Will monitor in the telemetry unit Cardiology evaluation in the morning (3) Acute UTI (urinary tract infection): Plan: UA was suggestive of infection Started on intravenous ceftriaxone and will be continued Urine culture will be sent (4) Hyperparathyroidism: Plan: Stable and calcium level is normal (5) Asthma: Plan: No evidence of wheezing and/or shortness of breath History of diastolic dysfunction Not in any fluid overload Sjogren's syndrome Symptoms inactive Memory impairment Has been on trazodone History B-cell lymphoma Sees Dr. Menendez No acute symptoms now DVT prophylaxis Subcu heparin CODE STATUS Full History of Present Illness Chief Complaint: Syncopal episode in charge with bradycardia arrhythmia Primary Care Provider: Kathy Sweeney MD She is an 82-year-old female with significant past medical history of mild persistent asthma, hyperparathyroidism, aortic ectasia, hypertension, elevated idiopathic peripheral neuropathy, history of B-cell lymphoma, diastolic dysfunction, stage III chronic kidney disease, and mild dementia apparently was brought into the emergency room with a syncopal episode at the [facility]. She has had Ensure for breakfast today and then went to the charge and sitting down listening to the talk. When she was trying to stand up and saying she felt dizzy and almost fell down. She mentioned to have loss of consciousness for a few seconds and at that time she looked pale. The paramedics noted the heart rate to be up to 30s and she was brought into the emergency room and at the time there was some shortness of breath as well but no sweating. No recent fever and or chills. No abdominal pain nausea no vomiting and no problem with urine. She denies to have any weakness involving any side of the body in particular. Her EKG in the ER was in sinus rhythm at 72/min and she was noted to have UTI and started with intravenous ceftriaxone. She will be admitted to telemetry unit for continuation of care Allergies Allergy/AdvReac Type Severity Reaction Status Date / Time aspirin Allergy Mild lip sweling Verified 04/28/22 11:25 Penicillins Allergy Mild UNKNOWN Verified 04/28/22 11:26 diphenhydramine Allergy Edema of Verified 04/28/22 11:25 [From Benadryl] face, lips, tongue ibuprofen Allergy edema of Verified 04/28/22 11:25 face, lips, tongue red dye Allergy Edema of Verified 04/28/22 11:25 face, lips & tongue. Hives Home Medications Medication Instructions Recorded Confirmed Type cetirizine 10 mg tablet (Zyrtec) 10 mg PO QAM 12/15/21 03/19/23 History lisinopril 20 mg tablet 20 mg PO QAM 12/15/21 03/19/23 History montelukast 10 mg tablet 10 mg PO HS 12/15/21 03/19/23 History (Singulair) atorvastatin 10 mg tablet 10 mg PO DAILY 04/28/22 03/19/23 History tramadol 50 mg tablet 50 mg PO Q6H PRN Pain 04/28/22 03/19/23 History trazodone 50 mg tablet 50 mg PO HS 04/28/22 03/19/23 History amlodipine 5 mg tablet 5 mg PO DAILY #30 tabs 04/29/22 03/19/23 Rx Past Med/Surg History Medical History (Updated 03/19/23 @ 14:33 by Brayan Aaron MD) Hyperparathyroidism B-cell lymphoma Osteopenia Asthma hx-"no problems for a long time" GERD (gastroesophageal reflux disease) Hyperlipidemia Hypertension Surgical History History of cataract surgery RT History of laparotomy for removal ectopic History of esophagogastroduodenoscopy (EGD) Hx of colonoscopy Social History Smoking Status: Never smoker Second Hand Exposure: No; Do You Dip or Chew Tobacco: No; Hx Alcohol Use: No Preferred Language: Indian Communication Ability: Effective Family Court Registrar Required: No Beliefs That Will Affect Care: None Current Living Situation: Alone Current Living Situation Comment: Son lives next door Feels Safe at Home: Yes Assistive Devices: Glasses Review of Systems Review of Systems: All systems reviewed and are unremarkable except as noted below Physical Exam Physical Exam: Lying in bed comfortably but remains very anxious Constitutional: + ill appearing and + obese Eyes: PERRL, conjunctivae normal, anicteric sclerae ENMT: external ear and nose normal, oropharynx normal Neck: trachea midline, no thyromegaly Respiratory: no respiratory distress Auscultation: lungs clear to auscultation bilaterally Cardiovascular: Rate/Rhythm: regular rate and regular rhythm; not tachycardic Heart Sounds: normal S1, normal S2 and + murmur (1/6 ESM over precordium) Extremities: no edema Gastrointestinal (Abdomen): Inspection/Auscultation: normal bowel sounds; abdomen not distended Percussion/Palpation: abdomen soft; abdomen nontender Musculoskeletal: No acute arthritis involving any of the joint Neurologic: Alert and awake. Pleasantly confused. Moves all limbs equally. No focal neurodeficit Lymphatic: no cervical or axillary lymphadenopathy Results & Data Results & Data Vital Signs (Past 12 Hours) Vital Signs Temp Pulse Pulse Resp BP BP Pulse Ox 03/19/23 12:00 85 20 139/65 98 03/19/23 11:27 72 03/19/23 10:50 36.5 C 73 14 117/56 L 95 O2 Del Method 03/19/23 12:00 03/19/23 11:27 03/19/23 10:50 Room Air Laboratory Results Short CBC 03/19/23 Range/Units 11:13 WBC 16.78 H (4.8-10.8) K/ul Hgb 14.1 (12.0-16.0) g/dl Hct 43.4 (37.0-47.0) % Plt Count 255 (130-400) K/uL BMP 03/19/23 11:13 Sodium 139 Potassium 4.1 Chloride 107 Carbon Dioxide 24 BUN 15 Creatinine 0.80 Glucose 146 H Calcium 9.9 Liver Function 03/19/23 Range/Units 11:13 Total Bilirubin 0.5 (0.2-1.0) mg/dl AST 18 (13-39) U/L ALT 14 (7-52) U/L Alkaline Phosphatase 41 (34-104) U/L Albumin 4.2 (3.4-5.0) gm/dl Urine 03/19/23 Range/Units 12:51 Urine Color Yellow Urine Appearance Cloudy A (Clear) Urine pH 7.5 (4.5-7.5) Ur Specific [place] 1.015 (1.000-1.030) Urine Protein Negative (Negative) Urine Glucose (UA) Negative (Negative) Medications Administered Current Inpatient Medications Sodium Chloride (Nss) 1,000 mls @ 100 mls/hr IV .Q10H ROSEANN Stop: 03/20/23 20:29 Ceftriaxone Sodium 1,000 mg/ (Dextrose) 50 mls @ 100 mls/hr IV Q24H ROSEANN; Protocol Stop: 03/24/23 14:29 Code Status & VTE Plan VTE Prophylaxis Plan VTE Prophylaxis will be ordered: Yes
--- NOTE | 2023-03-19 16:48 | Electrocardiogram Report ---
Test Reason : Blood Pressure : / mmHG Vent. Rate : 072 BPM Atrial Rate : 072 BPM P-R Int : 154 ms QRS Dur : 086 ms QT Int : 410 ms P-R-T Axes : 081 -20 043 degrees QTc Int : 448 ms Normal sinus rhythm When compared with ECG of 28-APR-2022 08:49, No significant change was found Confirmed by Renato Rubin ([id number]) on 03/19/2023 4:48:20 PM Referred By: REFERRED SELF Confirmed By:Oskar Rubin
[2023-03-19] MEDS: traMADol HCL 50 MG TABLET PO PRN (20:14)
[2023-03-19] MEDS: traZODone HCL 50 MG TAB PO SCH (20:14)
[2023-03-19] MEDS: MONTELUKAST SODIUM 10 MG TABLET PO SCH (20:18)
--- NOTE | 2023-03-20 08:39 | Cardiology Consultation ---
Date of Consultation March 20, 2023 Assessment & Plan (1) UTI (urinary tract infection): (2) Bradycardia: (3) Syncope and collapse: (4) Vasovagal episode: Plan Very pleasant 82-year-old female admitted on March 19, 2023 after experiencing an episode of syncope at [facility]. Bradyarrhythmia observed by EMS. EKG with normal sinus rhythm at 72 bpm, without acute changes. QT not prolonged. 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 TSH normal at 1.255 uIu/mL. High- sensitivity troponin 2.5 pg/mL. No chest pain or acute shortness of breath noted. Chest x-ray without acute cardiopulmonary findings. Patient not prescribed AV kody mariana or antiarrhythmic therapy. No hypothermia or hypoxia observed. No rash or tick bites noted. No recent travel. History most suggestive of vasovagal reaction in the setting of volume depletion, urinary tract infection. Treatment of the urinary tract infection as per hospitalist. Check blood cultures. Refer for resting echocardiography. Maintain telemetry while hospitalized. Outpatient 14-day ZIO. Further recommendations as per Dr. Salinas. Supervising Physician Co-Signing Physician Notes I have reviewed the advance practitioner's documentation, and I agree with, and take responsibility for the plan of care. Patient was seen and personally examined. Chart, medications and telemetry reviewed. Historically presentation complaint consistent with vasovagal reaction as above. No acute cardiac concerns found with normal EKG, telemetry and cardiac enzymes Plan as well outlined Treat underlying infectious causes History of Present Illness Reason for Consultation: Bradyarrhythmia Requesting Physician: Dr. Aaron Attending Physician: Dr. Diaz History of Present Illness Cherelle Sherman is a very pleasant 82-year-old female who presented to the [facility] ER via ambulance on March 19, 2023 after possible syncopal episode at [facility]. Unfortunately, patient is not a reliable source of information. Memory loss/confusion noted. Chart review reveals that the patient may have inadvertently taken her evening medications including trazodone prior to going to [facility]. Per documentation, patient stood at [facility] and felt dizzy then nearly fell, experiencing loss of consciousness for few seconds. EMS was summoned, reportedly observing heart rates in the 30s. EKG on presentation revealed normal sinus rhythm at 72 bpm, without acute changes. QT not prolonged. Personal review of the patient's continuous hydraulic design engineer in the ER shows no bradycardia arrhythmias, revealing sinus throughout with heart rates in the 70s and 80s. TSH normal at 1.255 uIu/mL. High-sensitivity troponin 2.5 pg/mL. Chest x-ray without acute cardiopulmonary findings. Patient not prescribed AV kody mariana or antiarrhythmic therapy. No hypothermia or hypoxia observed. No rash or tick bites noted. No recent travel. Denies chest pain, palpitations, shortness of breath, orthopnea, or PND. White blood cell count elevated on presentation, 16.78. Urinalysis highly suggestive of urinary tract infection with straight cath urine culture revealing gram-negative bacilli. Blood cultures not obtained. Past Medical and Surgical History: See below Family History: Mother with breast cancer Social History: Former smoker, x 5 years. No alcohol. No illegal drug use. 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 Lives alone, son Grant next-door. Allergies Allergy/AdvReac Type Severity Reaction Status Date / Time aspirin Allergy Mild lip sweling Verified 04/28/22 11:25 Penicillins Allergy Mild UNKNOWN Verified 04/28/22 11:26 diphenhydramine Allergy Edema of Verified 04/28/22 11:25 [From Benadryl] face, lips, tongue ibuprofen Allergy edema of Verified 04/28/22 11:25 face, lips, tongue red dye Allergy Edema of Verified 04/28/22 11:25 face, lips & tongue. Hives Home Medications Medication Instructions Recorded Confirmed Type cetirizine 10 mg tablet (Zyrtec) 10 mg PO QAM 12/15/21 03/19/23 History lisinopril 20 mg tablet 20 mg PO QAM 12/15/21 03/19/23 History montelukast 10 mg tablet 10 mg PO HS 12/15/21 03/19/23 History (Singulair) atorvastatin 10 mg tablet 10 mg PO DAILY 04/28/22 03/19/23 History tramadol 50 mg tablet 50 mg PO Q6H PRN Pain 04/28/22 03/19/23 History trazodone 50 mg tablet 50 mg PO HS 04/28/22 03/19/23 History amlodipine 5 mg tablet 5 mg PO DAILY #30 tabs 04/29/22 03/19/23 Rx Patient History Medical History Hyperparathyroidism B-cell lymphoma Osteopenia Asthma hx-"no problems for a long time" GERD (gastroesophageal reflux disease) Hyperlipidemia Hypertension Surgical History History of cataract surgery RT History of laparotomy for removal ectopic History of esophagogastroduodenoscopy (EGD) Hx of colonoscopy Social History Smoking Status: Former smoker Second Hand Exposure: No; Do You Dip or Chew Tobacco: No; Tobacco Cessation Education Requested by Patient: No Hx Alcohol Use: No Hx Substance Use: No Preferred Language: Yoruba Communication Ability: Effective Medical Records Analyst Required: No Beliefs That Will Affect Care: None Current Living Situation: Alone Current Living Situation Comment: son lives next door Other Information That Helps Us Care for You: No Feels Safe at Home: Yes Safety Concerns: Feels Safe At This Time Assistive Devices: Glasses Review of Systems Review of Systems: A complete and accurate review of systems was unable to be obtained due to observed short-term memory impairment Physical Exam Physical Exam: General: Alert to person and place. NAD. HENT: Normocephalic. Atraumatic. Eyes: PER. Conjunctiva pink, sclera clear. Neck: Transmitted systolic murmur. No JVD. No HJR. Heart: RRR. Grade II/ systolic ejection murmur. No diastolic murmur. No rub. No gallop. PMI is nondisplaced. Lungs: Clear to auscultation. No wheeze. Abdomen: +BS. Soft. Nontender. No masses or organomegaly. Extremities: No clubbing, cyanosis, or edema. Pulses: radial=2/4, posterior tibial=2/4. Results & Data Vital Signs (Past 12 Hours) Vital Signs Temp Pulse Pulse Resp BP BP Pulse Ox 03/20/23 08:14 80 15 139/82 97 03/20/23 07:52 72 03/20/23 06:00 75 18 137/80 95 03/20/23 04:15 68 03/20/23 04:00 137/80 03/20/23 04:00 80 13 95 03/20/23 03:00 81 14 95 03/20/23 02:53 69 18 123/62 93 03/20/23 02:44 72 20 93 03/20/23 02:44 123/62 03/20/23 02:00 67 18 92 03/20/23 01:00 68 21 92 03/20/23 00:47 72 15 94 03/20/23 00:47 132/63 03/20/23 00:45 103 H 03/19/23 22:02 36.6 C 82 16 150/81 H 93 O2 Del Method 03/20/23 08:14 Room Air 03/20/23 07:52 03/20/23 06:00 Room Air 03/20/23 04:15 03/20/23 04:00 03/20/23 04:00 03/20/23 03:00 03/20/23 02:53 Room Air 03/20/23 02:44 03/20/23 02:44 03/20/23 02:00 03/20/23 01:00 03/20/23 00:47 03/20/23 00:47 03/20/23 00:45 03/19/23 22:02 Room Air Laboratory Results Cardiac Enzymes 03/19/23 Range/Units 11:13 AST 18 (13-39) U/L Troponin I High Sens 2.5 (0-14) pg/ml CBC 03/19/23 Range/Units 11:13 WBC 16.78 H (4.8-10.8) K/ul RBC 5.13 (4.20-5.40) M/uL Hgb 14.1 (12.0-16.0) g/dl Hct 43.4 (37.0-47.0) % Plt Count 255 (130-400) K/uL Neut # (Auto) 13.76 H (1.40-6.50) K/uL Lymph # (Auto) 1.79 (1.20-3.40) K/uL [place] # (Auto) 0.97 H (0.11-0.59) K/uL Eos # (Auto) 0.05 (0.00-0.50) K/uL Baso # (Auto) 0.10 (0.00-0.20) K/uL Comprehensive Metabolic Panel 03/19/23 Range/Units 11:13 Sodium 139 (136-145) mmol/L Potassium 4.1 (3.5-5.1) mmol/L Chloride 107 (98-107) mmol/L Carbon Dioxide 24 (21-32) mmol/L BUN 15 (6-23) mg/dl Creatinine 0.80 (0.6-1.2) mg/dl Glucose 146 H (70-99(Fasting)) mg/dl Calcium 9.9 (8.6-10.3) mg/dl AST 18 (13-39) U/L ALT 14 (7-52) U/L Alkaline Phosphatase 41 (34-104) U/L Total Protein 6.8 (6.0-8.3) gm/dl Albumin 4.2 (3.4-5.0) gm/dl Intake and Output 03/19/23 03/20/23 03/20/23 22:59 06:59 14:59 Intake Total 1.7 / Balance Intake: IV Sodium Chloride 0.9% 1,000 ml @ 921.667 / 92.667 100 mls/hr IV .Q10H [facility] Rx#: [id number] Other: # Unmeasured Voids 1 Weight 88.2 kg Weight Measurement Method Built in [facility]
[2023-03-20] MEDS: CETIRIZINE HCL 10 MG TABLET PO SCH (08:42)
[2023-03-20] MEDS: ATORVASTATIN 10 MG TAB PO SCH (08:42)
[2023-03-20] MEDS: amLODIPine BESYLATE 5 MG TAB PO SCH (08:43)
[2023-03-20] MEDS: lisinopril 20 MG TAB PO SCH (08:43)
[2023-03-20 13:22] LABS: Hematocrit (blood only) 42.4 % (37.0-47.0); Hemoglobin 13.9 g/dl (12.0-16.0); Mean Corpuscular Hemoglobin 27.9 pg (25.0-34.0); Mean Corpuscular Hgb Conc 32.8 g/dL (32.0-36.0); Mean Platelet Volume 9.3 fL (9.4-12.4); Platelet Count 256 K/uL (130-400); RDW Coefficient of Variation 13.9 % (11.5-14.5); RDW Standard Deviation 42.5 fL (36.4-46.3); Red Blood Count 4.99 M/uL (4.20-5.40); White Blood Count 14.43 K/ul (4.8-10.8)
[2023-03-20] MEDS: cefTRIAXone SODIUM 2,000 MG in DEXTROSE 5 % MINI-B 50 ML IV SCH (13:41)
--- NOTE | 2023-03-20 14:10 | Discharge Summary ---
Date of Service March 20, 2023 Admission HPI Per Admitting Provider She is an 82-year-old female with significant past medical history of mild persistent asthma, hyperparathyroidism, aortic ectasia, hypertension, elevated idiopathic peripheral neuropathy, history of B-cell lymphoma, diastolic dysfunction, stage III chronic kidney disease, and mild dementia apparently was brought into the emergency room with a syncopal episode at the [facility]. She has had Ensure for breakfast today and then went to the charge and sitting down listening to the talk. When she was trying to stand up and saying she felt dizzy and almost fell down. She mentioned to have loss of consciousness for a few seconds and at that time she looked pale. The paramedics noted the heart rate to be up to 30s and she was brought into the emergency room and at the time there was some shortness of breath as well but no sweating. No recent fever and or chills. No abdominal pain nausea no vomiting and no problem with urine. She denies to have any weakness involving any side of the body in particular. Her EKG in the ER was in sinus rhythm at 72/min and she was noted to have UTI and started with intravenous ceftriaxone. She will be admitted to telemetry unit for continuation of care Admission Exam Per Admitting Provider Physical Exam: Lying in bed comfortably but remains very anxious Constitutional: + ill appearing and + obese Eyes: PERRL, conjunctivae normal, anicteric sclerae ENMT: external ear and nose normal, oropharynx normal Neck: trachea midline, no thyromegaly Respiratory: no respiratory distress Auscultation: lungs clear to auscultation bilaterally Cardiovascular: Rate/Rhythm: regular rate and regular rhythm; not tachycardic Heart Sounds: normal S1, normal S2 and + murmur (1/6 ESM over precordium) Extremities: no edema Gastrointestinal (Abdomen): Inspection/Auscultation: normal bowel sounds; abdomen not distended Percussion/Palpation: abdomen soft; abdomen nontender Musculoskeletal: No acute arthritis involving any of the joint Neurologic: Alert and awake. Pleasantly confused. Moves all limbs equally. No focal neurodeficit Lymphatic: no cervical or axillary lymphadenopathy Principal Diagnosis Possible vasovagal syncope Acute UTI Discharge Exam GENERAL: Alert and oriented x3. NAD, on RA. HEENT: No pallor, no icterus. Pupils equal, round and reactive to light. Oral mucosa moist. NECK: No JVD, no neck masses. HEART: S1 and S2 heard. Regular rate and rhythm. + murmur, no gallop. RESPIRATORY SYSTEM: Normal AP diameter. No accessory muscle use. No wheezing, no crackles. ABDOMEN: Soft, bowel sounds present, nontender, no distention. CENTRAL NERVOUS SYSTEM: No facial droop. Speech is clear. Obeys simple commands. Moves extremities. EXTREMITIES: trace ble edema, no erythema seen. Discharge Data Allergies Allergy/AdvReac Type Severity Reaction Status Date / Time aspirin Allergy Mild lip sweling Verified 04/28/22 11:25 Penicillins Allergy Mild UNKNOWN Verified 04/28/22 11:26 diphenhydramine Allergy Edema of Verified 04/28/22 11:25 [From Benadryl] face, lips, tongue ibuprofen Allergy edema of Verified 04/28/22 11:25 face, lips, tongue red dye Allergy Edema of Verified 04/28/22 11:25 face, lips & tongue. Hives Consultations 03/19/23 13:45 ED Decision to Admit Stat 03/19/23 14:21 Consult Cardiology Routine Hospital Course (1) Syncope and collapse: Per prior attending with addendum: Was brought in with syncopal episode at discharge Likely vasovagal and contributed by mild dehydration and also UTI Doubt any neurogenic cause Will give cautious amount of intravenous fluid Will observe in the telemetry unit (2) Bradycardia: Paramedics noted to have a bradycardia of around 30s EKG in the ER is sinus rhythm with a rate of 72 No arrhythmias and/or ectopics Will monitor in the telemetry unit Cardiology evaluation in the morning (3) Acute UTI (urinary tract infection): UA was suggestive of infection Started on intravenous ceftriaxone and will be continued Urine culture will be sent (4) Hyperparathyroidism: Stable and calcium level is normal (5) Asthma: No evidence of wheezing and/or shortness of breath History of diastolic dysfunction Not in any fluid overload Sjogren's syndrome Symptoms inactive Memory impairment Has been on trazodone History B-cell lymphoma Sees Dr. Menendez No acute symptoms now DVT prophylaxis Subcu heparin CODE STATUS Full Plan Addendum: Patient was seen and examined at bedside, discussed with cardiology, likely vasovagal syncope. Patient reports feeling better and is hemodynamically stable and would like to go home. Patient was found to have UTI with leukocytosis, WBC coming down, patient was started on ceftriaxone, urine culture with gram-negative organism, will discharge on cefdinir, communicated with patient's [id number] the need to follow-up on the results of blood and urine culture upon discharge with PCP visit within a week time. She voiced understanding. And was agreeable to plan of care. Patient is being discharged with following instruction at the point of discharge: Follow-up with your primary care physician within a week time and likely you wi ll need labs CBC/CMP/magnesium/phosphorus. Please follow-up on the final results of your urine and blood culture drawn in this hospital admission when you visit your primary care physician within a week time. You will be discharged on antibiotic to complete the course for UTI, probiotics will be added, based on the final results of your culture reports your antibiotic may or may not change. Follow-up with your cardiology as prior. Maintain adequate appetite. Please make sure that you are able to get your medications today by calling your pharmacy before you leave the hospital so that your treatment continuity is not broken. Home Health Attestation I certify that this patient is under my care and that I, or a physicians hotel administrative assistant working with me, had a face to-face encounter that meets the home health [id number] encounter requirements with this patient. The encounter with the patient was in whole, or in part, for the following med ical condition, which is the primary reason for home health care (list medical condition): I certify that, based on my findings, the following services are medically necessary home health services: My clinical findings support the need for the above services because: Further, I certify that my clinical findings support that this patient is homebound (i.e. absences from home require considerable and taxing effort and are for medical reasons or zoroastrian services or infrequently or of short duration when for other reasons) because: Certification for Home Health Services: Based on the above findings, I certify that this patient is confined to the home and needs intermittent assisted care, physical therapy and/or speech therapy or continues to need occupational therapy. The patient is under my care, and I have initiated the establishment of the plan of care. This patient will be followed by a physician who will periodically review the plan of care. Total Time Total Time Spent Total Time Spent (In Minutes): 45 Discharge Plan Discharge Items Patient Disposition: Home - Self-Care Reason For Visit: SYCNOPE, BRADYARRHYTHMIA Discharge Diagnosis: Possible vasovagal syncope Acute UTI Condition on Discharge: Fair Activity: Resume your previous activity Non-emergency contact: Primary Care Provider Call non-emergency contact if: you have any medication questions, your symptoms worsen and your temperature is above 101 Follow-up/Referrals: Kathy Sweeney MD [Primary Care Provider] - (Date & Time 03/24/2023 9:00 AM Provider Kathy Sweeney MD [facility] ) Diet: Heart Healthy Addtl Attending Provider Instructions: Follow-up with your primary care physician within a week time and likely you will need labs CBC/CMP/magnesium/phosphorus. Please follow-up on the final results of your urine and blood culture drawn in this hospital admission when you visit your primary care physician within a week time. You will be discharged on antibiotic to complete the course for UTI, probiotics will be added, based on the final results of your culture reports your antibiotic may or may not change. Follow-up with your cardiology as prior. Maintain adequate appetite. Please make sure that you are able to get your medications today by calling your pharmacy before you leave the hospital so that your treatment continuity is not broken. Pending Studies at Discharge: Yes Stand-Alone Forms: My [employer], Smoking Cessation Medications and DC Order Prescriptions: New cefdinir 300 mg capsule 300 mg PO BID 6 Days Qty: 12 0RF Probiotic 3 billion cell capsule 3,000 mmu cells PO DAILY 7 Days Qty: 7 0RF Rx Instructions: administer with a meal Continued trazodone 50 mg tablet 50 mg PO HS atorvastatin 10 mg tablet 10 mg PO DAILY tramadol 50 mg tablet 50 mg PO Q6H PRN (Reason: Pain) amlodipine 5 mg tablet 5 mg PO DAILY Qty: 30 0RF cetirizine [Zyrtec] 10 mg Tablet 10 mg PO QAM lisinopril 20 mg Tablet 20 mg PO QAM montelukast [Singulair] 10 mg Tablet 10 mg PO HS Discharge Orders: Discharge Order (Routine); Ordered 03/20/23 Ordered By: Juliet Diaz Admission Data Admit Date/Time: 03/19/23 14:21 Attending Provider: Juliet Diaz Admit Provider: Brayan Aaron Primary Care Provider: Kathy Sweeney Other Providers: Brayan Aaron; Lalita De Guzman; Ameya Kilgore; Ulysses Salinas; Hussein Hernandez; Tony Walker; Samy Ross; Jessika Colón; Melia Herndon; Lalita Stauffer; Robin Wilcox; Hima Ortez; Trini Frank; Ijeoma Rosas; Bjorn Howard; Fermin Olguin
== END 2023-03-20 15:19 | disposition home or self-care (01) ==
LOC: ED 10:49 → SUATTDRO 14:21 → EDINP 14:21 → INTOOBSV 14:21 → EDINP 03-20 16:28

== ENCOUNTER 2023-10-17 20:27 | Inpatient (IN) ==
[2023-10-17] MEDS: SODIUM CHLORIDE 0.9% 1,000 ML IV ONE (20:41)
[2023-10-17] MEDS: ONDANSETRON INJ 2 MG/ML 2 ML VIAL IV STA (20:42)
[2023-10-17 21:11] LABS: Albumin Globulin Ratio 1.5 (0.9-2); Albumin Level 4.1 gm/dl (3.4-5.0); BUN Creatinine Ratio 24.5 (10-20); Calcium 9.2 mg/dl (8.6-10.3); Creatinine Clr Calc Pharmacy 38.3 ml/min; Est GFR (African American) 61.8 ml/min; Est GFR (Non-African American) 53.3 ml/min; Globulin 2.7 gm/dl (2.5-4.0); Potassium 4.2 mmol/L (3.5-5.1); Total Protein 6.8 gm/dl (6.0-8.3)
[2023-10-17 21:18] LABS: INR 1.1 (0.9-1.1); Prothrombin Time 11.4 Seconds (9.0-12.0); Troponin I High Sensitivity 6.8 pg/ml (0-14)
[2023-10-17] MEDS: OPTIRAY 320 100ml IV ONE (21:33)
[2023-10-17 21:44] LABS: Adenovirus PCR Not Detected (NotDetected); Bordetella parapertussis PCR Not Detected (NotDetected); Bordetella pertussis PCR Not Detected (NotDetected); Chlamydia pneumoniae PCR Not Detected (NotDetected); Coronavirus 229E PCR Not Detected (NotDetected); Coronavirus CoV-2 (COVID19)PCR Not Detected (NotDetected); Coronavirus HKU1 PCR Not Detected (NotDetected); Coronavirus NL63 PCR Not Detected (NotDetected); Coronavirus OC43PCR Not Detected (NotDetected); Human Metapneumovirus PCR Not Detected (NotDetected); Influenza A PCR Not Detected (NotDetected); Influenza B PCR Not Detected (NotDetected); Mycoplasma pneumoniae PCR Not Detected (NotDetected); Parainfluenza Virus 1 PCR Not Detected (NotDetected); Parainfluenza Virus 2 PCR Not Detected (NotDetected); Parainfluenza Virus 3 PCR Not Detected (NotDetected); Parainfluenza Virus 4 PCR Not Detected (NotDetected); Respiratory Syncytial VirusPCR Not Detected (NotDetected); Rhinovirus/Enterovirus PCR Not Detected (NotDetected)
[2023-10-17 21:48] LABS: Hematocrit (blood only) 45.3 % (37.0-47.0); Hemoglobin 15.3 g/dl (12.0-16.0); Mean Corpuscular Hemoglobin 28.5 pg (25.0-34.0); Mean Corpuscular Hgb Conc 33.8 g/dL (32.0-36.0); Mean Corpuscular Volume 84.5 fL (80.0-100.0); Mean Platelet Volume 9.4 fL (9.4-12.4); Platelet Count 403 K/uL (130-400); RDW Coefficient of Variation 13.6 % (11.5-14.5); RDW Standard Deviation 41.7 fL (36.4-46.3); Red Blood Count 5.36 M/uL (4.20-5.40); White Blood Count 43.06 K/ul (4.8-10.8)
--- NOTE | 2023-10-17 21:48 | Emergency Department Note ---
Impression & Plan Abdominal pain, Leukocytosis, Colitis, Elevated lactic acid level, Elevated procalcitonin ED Provider Note HISTORY OF PRESENT ILLNESS: Patient is an 83-year-old female presenting with lower abdominal pain and vomiting. Patient reports she has not felt well all day. Reports that she has had multiple episodes of vomiting and an episode of coffee-ground emesis earlier today. She states that she has had left lower quadrant abdominal pain today. She states that she reportedly had some dark blood in her stool. Denies any fevers, but on assessment the patient is having active rigors. She denies any recent sick contact exposures. Denies any chest pain or shortness of breath. ROS: as above PHYSICAL EXAM: Constitutional: Patient appears in no acute distress. Patient is having active rigors HENT: Head: Normocephalic and atraumatic. Eyes: EOMI, PERRL Mouth/Throat: Mucous membranes moist. Neck: Trachea midline. Neck supple. Cardiovascular: Tachycardic with regular rhythm. No murmurs, rubs or gallops. Intact distal pulses. Pulmonary/Chest: No respiratory distress. Breath sounds clear and equal bilaterally. No wheezes or rales. Abdominal: Abdomen soft, no rebound or guarding. LLQ TTP Musculoskeletal: No edema, tenderness or deformity noted. Skin: Warm and dry. No rash, erythema, pallor or cyanosis Psychiatric: Appropriate mood and affect for situation. Neurological: Alert and keenly responsive. CN II-XII grossly intact, moving all extremities equally and fully. MDM: - Vitals signs showed hypertension and tachycardia - History obtained via patient. History as above. - Chronic conditions affecting care: B- cell lymphoma; hyperparathyroidism; HTN; HLD; GERD - Differential diagnoses include, but are not limited to: Esophagitis; bleeding peptic ulcer; diverticular bleed; sepsis; ischemic colitis; ACS - Order placed for continuous cardiac monitoring. At this time, monitor showed rate of 99 bpm with normal sinus rhythm, per my interpretation. - External medical records reviewed. Discharge summary dated 03/20/2023 was reviewed. Patient was admitted that time for vasovagal syncope and acute UTI. - EKG interpreted by myself showed normal sinus rhythm. Rate tachycardic at 105 bpm. QT 342. No acute ischemic changes. - Laboratory workup interpreted by myself showed leukocytosis (WBC 43.06) with neutrophil predominance; normal PT/INR; stable electrolytes; elevated anion gap (15); hyperglycemia (216); normal AST/ALT; normal troponin; normal lipase; elevated procalcitonin (2.25); elevated lactate (3.7) - Blood cultures obtained - Patient apparently given IV Zosyn to cover for intra-abdominal etiologies for her sepsis. - UA negative for infection. - Type and screen ordered. - CT abdomen/pelvis with IV contrast showed colonic stool burden suggestive of constipation. Noted to have left hemicolon wall thickening with pericolonic fat stranding and fluid concerning for nonspecific colitis. - Patient given 1L NS, 50 mcg IV fentanyl and 4 mg IV zofran on arrival for her pain and nausea. Patient's oxygen saturation decreased after the fentanyl dosing and she was placed on 3 L nasal cannula. She was also given 40 mg of IV Protonix given her reported coffee-ground emesis. On reassessment, she still complaining of significant abdominal pain. Given 1 L normal saline and 4 mg IV morphine. - Repeat lactic acid still elevated but slightly downtrending to 2.9. - Patient's sepsis fluid volume calculation based on ideal body weight is 1500 mL. - Given patient's continued abdominal pain and elevated lactic acid in the setting of a nonspecific colitis, concern for potential ischemic colitis. Discussed case with general surgery MUNIR, Blu Reyes, at 00:13. He will come to evaluate the patient, but recommends admission to medicine. - Discussion was had with caseworker intake about patient's case and need for admission - Hospitalist, Dr. Heller, consulted for admission - Patient admitted to [facility] service for further evaluation and management. I have personally spent 62 minutes of critical care time in the direct management of this patient. This includes bedside care, interpretation of diagnostic studies, and testing, discussion with consultants, patient, and family members, and other required patient management activities. This 62 minutes is in excess of all separately billable procedures. ASSESSMENT AND PLAN: Diagnosis: Abdominal pain; colitis; sepsis; elevated lactic acid; leukocytosis; elevated procalcitonin Plan: Admit Past Med/Surg History Problem List (Updated 10/18/23 @ 01:06 by Christina Carpio MD) Elevated procalcitonin (Acute) Elevated lactic acid level (Acute) Colitis (Acute) Leukocytosis (Acute) Abdominal pain (Acute) Colitis Dementia (Acute) Shortness of breath (Acute) Atypical chest pain (Acute) Vasovagal episode UTI (urinary tract infection) Leukocytosis (Acute) Bradycardia (Acute) Acute UTI (Acute) Syncope (Acute) Asthma (Acute) hx-"no problems for a long time" Bradycardia Syncope and collapse Hyperparathyroidism B-cell lymphoma Hypertensive urgency Confusion (Acute) Generalized weakness (Acute) Acute UTI (urinary tract infection) (Acute) Medical History Osteopenia GERD (gastroesophageal reflux disease) Hyperlipidemia Hypertension Surgical History History of cataract surgery RT History of laparotomy for removal ectopic History of esophagogastroduodenoscopy (EGD) Hx of colonoscopy Social History Smoking Status: Unknown if ever smoked Second Hand Exposure: No; Do You Dip or Chew Tobacco: No; Hx Alcohol Use: No Hx Substance Use: No Preferred Language: [place]ican Communication Ability: Effective Vehicle Mechanic Required: No Beliefs That Will Affect Care: None Current Living Situation: Alone Current Living Situation Comment: son lives next door Feels Safe at Home: Yes Assistive Devices: Glasses Allergies Allergies Allergy/AdvReac Type Severity Reaction Status Date / Time aspirin Allergy Mild lip sweling Verified 04/28/22 11:25 Penicillins Allergy Mild UNKNOWN Verified 04/28/22 11:26 diphenhydramine Allergy Edema of Verified 04/28/22 11:25 [From Benadryl] face, lips, tongue ibuprofen Allergy edema of Verified 04/28/22 11:25 face, lips, tongue red dye Allergy Edema of Verified 04/28/22 11:25 face, lips & tongue. [facility] Home Meds Home Medications Medication Instructions Recorded Confirmed cetirizine 10 mg tablet (Zyrtec) 10 mg PO QAM 12/15/21 03/19/23 lisinopril 20 mg tablet 20 mg PO QAM 12/15/21 03/19/23 montelukast 10 mg tablet 10 mg PO HS 12/15/21 03/19/23 (Singulair) atorvastatin 10 mg tablet 10 mg PO DAILY 04/28/22 03/19/23 tramadol 50 mg tablet 50 mg PO Q6H PRN Pain 04/28/22 03/19/23 trazodone 50 mg tablet 50 mg PO HS 04/28/22 03/19/23 Previous Rx's Medication Instructions Recorded amlodipine 5 mg tablet 5 mg PO DAILY #30 tabs 04/29/22 hydroxyzine HCl 10 mg tablet 10 mg PO TID PRN anxiety #10 tabs 10/13/23 Results & Data (ED) Vital Signs Vital Signs - 24 hr 10/17/23 20:35 10/17/23 20:35 10/17/23 20:55 Temperature 36.6 C Temperature Source Skin Pulse Rate 99 H 101 H Pulse Rate [Apical] Pulse Rhythm Regular Respiratory Rate 18 Respiratory Effort / Characteristics Non-Labored Respiratory Depth Normal Blood Pressure 150/72 H Blood Pressure [Left Arm] Blood Pressure Mean 98 Blood Pressure Mean [Left Arm] Blood Pressure Position [Left Arm] Pulse Oximetry 94 Oxygen Delivery Method Room Air Room Air Oxygen Flow Rate Sepsis Recent Fever Within 48 Hours No Sepsis New/Unexplained Change in Mental Status No Sepsis Action Taken by Nursing No Action Required 10/17/23 22:40 10/17/23 23:00 10/17/23 23:01 Temperature Temperature Source Pulse Rate Pulse Rate [Apical] 92 H Pulse Rhythm Respiratory Rate 21 Respiratory Effort / Characteristics Respiratory Depth Blood Pressure Blood Pressure [Left Arm] 147/66 H Blood Pressure Mean Blood Pressure Mean [Left Arm] 93 Blood Pressure Position [Left Arm] Semi-fowlers Pulse Oximetry 96 80 L 96 Oxygen Delivery Method Room Air Room Air Nasal Cannula Oxygen Flow Rate 3 Sepsis Recent Fever Within 48 Hours Sepsis New/Unexplained Change in Mental Status Sepsis Action Taken by Nursing 10/18/23 00:43 Temperature Temperature Source Pulse Rate 94 H Pulse Rate [Apical] Pulse Rhythm Respiratory Rate Respiratory Effort / Characteristics Respiratory Depth Blood Pressure Blood Pressure [Left Arm] Blood Pressure Mean Blood Pressure Mean [Left Arm] Blood Pressure Position [Left Arm] Pulse Oximetry Oxygen Delivery Method Oxygen Flow Rate Sepsis Recent Fever Within 48 Hours Sepsis New/Unexplained Change in Mental Status Sepsis Action Taken by Nursing Laboratory Data 10/17/23 20:32 10/17/23 20:32 Lab Results 10/17/23 10/17/23 10/17/23 Range/Units 20:30 20:32 21:58 WBC 43.06 H* (4.8-10.8) K/ul RBC 5.36 (4.20-5.40) M/uL Hgb 15.3 (12.0-16.0) g/dl Hct 45.3 (37.0-47.0) % MCV 84.5 (80.0-100.0) fL MCH 28.5 (25.0-34.0) pg MCHC 33.8 (32.0-36.0) g/dL RDW Std Deviation 41.7 (36.4-46.3) fL RDW Coeff of Estrella 13.6 (11.5-14.5) % Plt Count 403 H (130-400) K/uL MPV 9.4 (9.4-12.4) fL Immature Gran % (Auto) 1.6 % Neut % (Auto) 90.7 % Lymph % (Auto) 2.5 % Andrew % (Auto) 4.9 % Eos % (Auto) 0.0 % Baso % (Auto) 0.3 % Neut # (Auto) 39.04 H (1.40-6.50) K/uL Lymph # (Auto) 1.09 L (1.20-3.40) K/uL Andrew # (Auto) 2.11 H (0.11-0.59) K/uL Eos # (Auto) 0.00 (0.00-0.50) K/uL Baso # (Auto) 0.14 (0.00-0.20) K/uL Immature Gran # (Auto) 0.68 H (0.01-0.20) K/uL RBC Morphology Unremarkable PT 11.4 (9.0-12.0) Seconds INR 1.1 (0.9-1.1) Sodium 137 (136-145) mmol/L Potassium 4.2 (3.5-5.1) mmol/L Chloride 101 (98-107) mmol/L Carbon Dioxide 21 (21-32) mmol/L Anion Gap 15 H (3-11) BUN 24 H (6-23) mg/dl Creatinine 0.98 (0.6-1.2) mg/dl Est Cr Clr Drug Dosing 38.3 ml/min Est GFR ( Amer) 61.8 ml/min Est GFR (Non-Af Amer) 53.3 ml/min BUN/Creatinine Ratio 24.5 H (10-20) Glucose 216 H (70-99(Fasting)) mg/dl Lactate (0.4-2.0) mmol/L Calcium 9.2 (8.6-10.3) mg/dl Total Bilirubin 1.0 (0.2-1.0) mg/dl AST 17 (13-39) U/L ALT 15 (7-52) U/L Alkaline Phosphatase 141 H (34-104) U/L Troponin I High Sens 6.8 (0-14) pg/ml Total Protein 6.8 (6.0-8.3) gm/dl Albumin 4.1 (3.4-5.0) gm/dl Globulin 2.7 (2.5-4.0) gm/dl Albumin/Globulin Ratio 1.5 (0.9-2) Lipase 24 (11-82) U/L Procalcitonin 2.25 H (0-0.5) ng/ml Urine Color Dark Yellow Urine Appearance Clear (Clear) Urine pH 6.5 (4.5-7.5) Ur Specific [place] 1.039 H (1.000-1.030) Urine Protein 1+ H (Negative) Urine Glucose (UA) Negative (Negative) Urine Ketones 1+ H (Negative) Urine Blood Negative (Negative) Urine Nitrite Negative (Negative) Urine Bilirubin Negative (Negative) Urine Urobilinogen Negative (Negative) Ur Leukocyte Esterase Trace H (Negative) Urine WBC (Auto) 0-5 (0-5) /hpf Urine RBC (Auto) 0-2 (0-2) /hpf U Hyaline Cast (Auto) 6-10 H (0-2) /lpf U Epithel Cells (Auto) 0-2 (0-2) /hpf Urine Bacteria (Auto) None Seen (None Seen) Adenovirus (PCR) Not Detected (NotDetected) B. pertussis DNA (PCR) Not Detected (NotDetected) B.parapertussis DNA PCR Not Detected (NotDetected) C. pneumoniae DNA (PCR) Not Detected (NotDetected) Coronavirus OC43 (PCR) Not Detected (NotDetected) Coronavirus HKU1 (PCR) Not Detected (NotDetected) Coronavirus 229E (PCR) Not Detected (NotDetected) SARS-CoV-2 (PCR) Not Detected (NotDetected) Coronavirus NL63 (PCR) Not Detected (NotDetected) Human Metapneumovir PCR Not Detected (NotDetected) Influenza Type A (PCR) Not Detected (NotDetected) Influenza Type B (PCR) Not Detected (NotDetected) M. pneumoniae (PCR) Not Detected (NotDetected) Parainfluenza 1 (PCR) Not Detected (NotDetected) Parainfluenza 2 (PCR) Not Detected (NotDetected) Parainfluenza 3 (PCR) Not Detected (NotDetected) Parainfluenza 4 (PCR) Not Detected (NotDetected) RSV (PCR) Not Detected (NotDetected) Entero/Rhino (PCR) Not Detected (NotDetected) 10/17/23 10/18/23 Range/Units 22:54 00:24 WBC (4.8-10.8) K/ul RBC (4.20-5.40) M/uL Hgb (12.0-16.0) g/dl Hct (37.0-47.0) % MCV (80.0-100.0) fL MCH (25.0-34.0) pg MCHC (32.0-36.0) g/dL RDW Std Deviation (36.4-46.3) fL RDW Coeff of Estrella (11.5-14.5) % Plt Count (130-400) K/uL MPV (9.4-12.4) fL Immature Gran % (Auto) % Neut % (Auto) % Lymph % (Auto) % Andrew % (Auto) % Eos % (Auto) % Baso % (Auto) % Neut # (Auto) (1.40-6.50) K/uL Lymph # (Auto) (1.20-3.40) K/uL Andrew # (Auto) (0.11-0.59) K/uL Eos # (Auto) (0.00-0.50) K/uL Baso # (Auto) (0.00-0.20) K/uL Immature Gran # (Auto) (0.01-0.20) K/uL RBC Morphology PT (9.0-12.0) Seconds INR (0.9-1.1) Sodium (136-145) mmol/L Potassium (3.5-5.1) mmol/L Chloride (98-107) mmol/L Carbon Dioxide (21-32) mmol/L Anion Gap (3-11) BUN (6-23) mg/dl Creatinine (0.6-1.2) mg/dl Est Cr Clr Drug Dosing ml/min Est GFR ( Amer) ml/min Est GFR (Non-Af Amer) ml/min BUN/Creatinine Ratio (10-20) Glucose (70-99(Fasting)) mg/dl Lactate 3.7 H* 2.9 H* (0.4-2.0) mmol/L Calcium (8.6-10.3) mg/dl Total Bilirubin (0.2-1.0) mg/dl AST (13-39) U/L ALT (7-52) U/L Alkaline Phosphatase (34-104) U/L Troponin I High Sens (0-14) pg/ml Total Protein (6.0-8.3) gm/dl Albumin (3.4-5.0) gm/dl Globulin (2.5-4.0) gm/dl Albumin/Globulin Ratio (0.9-2) Lipase (11-82) U/L Procalcitonin (0-0.5) ng/ml Urine Color Urine Appearance (Clear) Urine pH (4.5-7.5) Ur Specific [place] (1.000-1.030) Urine Protein (Negative) Urine Glucose (UA) (Negative) Urine Ketones (Negative) Urine Blood (Negative) Urine Nitrite (Negative) Urine Bilirubin (Negative) Urine Urobilinogen (Negative) Ur Leukocyte Esterase (Negative) Urine WBC (Auto) (0-5) /hpf Urine RBC (Auto) (0-2) /hpf U Hyaline Cast (Auto) (0-2) /lpf U Epithel Cells (Auto) (0-2) /hpf Urine Bacteria (Auto) (None Seen) Adenovirus (PCR) (NotDetected) B. pertussis DNA (PCR) (NotDetected) B.parapertussis DNA PCR (NotDetected) C. pneumoniae DNA (PCR) (NotDetected) Coronavirus OC43 (PCR) (NotDetected) Coronavirus HKU1 (PCR) (NotDetected) Coronavirus 229E (PCR) (NotDetected) SARS-CoV-2 (PCR) (NotDetected) Coronavirus NL63 (PCR) (NotDetected) Human Metapneumovir PCR (NotDetected) Influenza Type A (PCR) (NotDetected) Influenza Type B (PCR) (NotDetected) M. pneumoniae (PCR) (NotDetected) Parainfluenza 1 (PCR) (NotDetected) Parainfluenza 2 (PCR) (NotDetected) Parainfluenza 3 (PCR) (NotDetected) Parainfluenza 4 (PCR) (NotDetected) RSV (PCR) (NotDetected) Entero/Rhino (PCR) (NotDetected) Administered Medications Discontinued Medications Fentanyl Citrate (Fentanyl Citrate Pf 100 Mcg/2 Ml Vial) 50 mcg IV NOW STA Stop: 10/17/23 22:45 Last Admin: 10/17/23 22:49 Dose: 50 mcg Documented By: MALENA Sodium Chloride (Nss) 1,000 mls @ 999 mls/hr IV .Q1H1M ONE Stop: 10/17/23 21:36 Last Infusion: 10/17/23 22:02 Dose: Infused Documented By: Admin: 10/17/23 20:41 Dose: 999 mls/hr Documented By: MINNIE Piperacillin Sod/Tazobactam Sod (Zosyn) 4.5 gm in 100 mls @ 200 mls/hr IV NOW ONE Stop: 10/17/23 22:17 Last Infusion: 10/17/23 23:41 Dose: Infused Documented By: Admin: 10/17/23 22:51 Dose: 200 mls/hr Documented By: MALENA Pantoprazole Sodium 40 mg/ (Syringe) 10 mls @ 5 mls/min IV NOW ONE Stop: 10/17/23 21:49 Last Admin: 10/17/23 23:35 Dose: 5 mls/min Documented By: BOSTON Sodium Chloride (Nss) 1,000 mls @ 999 mls/hr IV .Q1H1M ONE Stop: 10/18/23 01:03 Last Admin: 10/18/23 00:19 Dose: 999 mls/hr Documented By: BOSTON Ioversol (Optiray 320 100ml) 93 ml IV ONCE ONE Stop: 10/17/23 21:34 Last Admin: 10/17/23 21:33 Dose: 93 ml Documented By: JOSE MANUEL Morphine Sulfate (Morphine Sulfate 4 Mg/Ml 1 Ml Carp\\Vial) 4 mg IV NOW STA Stop: 10/18/23 00:04 Last Admin: 10/18/23 00:20 Dose: 4 mg Documented By: BOSTON Ondansetron HCl (Ondansetron Inj 2 Mg/Ml 2 Ml Vial) 4 mg IV NOW STA Stop: 10/17/23 20:37 Last Admin: 10/17/23 20:42 Dose: 4 mg Documented By: MINNIE Imaging Data Radiologist's Impression: Abdomen/Pelvis CT 10/17/23 20:36 Exam(s): CT ABDOMEN + PELVIS With Contrast IV Amt: 91 ml opti 320 EXAM: CT Abdomen and Pelvis With Intravenous Contrast CLINICAL HISTORY: Reason for exam: abd pain. TECHNIQUE: Axial computed tomography images of the abdomen and pelvis with intravenous contrast. CTDI is 18.64 mGy and DLP is 944.76 mGy-cm. Automated exposure control was utilized for the study. A dose lowering technique was utilized adhering to the principles of ALARA. CONTRAST: Patient received 91 ml opti 320 of IV contrast COMPARISON: 10/29/22 FINDINGS: Lung bases: Emphysema. Mediastinum: Small hiatal hernia, similar to prior. Distal esophageal wall thickening suggesting esophagitis. ABDOMEN: Liver: Unremarkable. No mass. Gallbladder and bile ducts: Unremarkable. No calcified stones. No ductal dilation. Pancreas: Unremarkable. No mass. No ductal dilation. Spleen: Unremarkable. No splenomegaly. Adrenals: Unremarkable. No mass. Kidneys and ureters: Symmetric renal enhancement. No hydronephrosis. Simple renal cysts; no follow-up indicated. Duplex left renal collecting system. Stomach and bowel: Left hemicolon wall thickening with pericolic fat stranding and fluid. Increased colonic stool burden suggesting constipation. No mechanical bowel obstruction. PELVIS: Appendix: No evidence of appendicitis. Bladder: Unremarkable. No mass. Reproductive: Unremarkable as visualized. ABDOMEN and PELVIS: Intraperitoneal space: Small volume of ascites. No free air. Bones/joints: Osteopenia. Disc and facet degeneration in the lumbar spine. No acute fracture. No dislocation. Soft tissues: Unremarkable. Vasculature: Coronary artery atherosclerosis. Atherosclerosis without aortic aneurysm. Lymph nodes: Unremarkable. No enlarged lymph nodes. IMPRESSION: 1. Left hemicolon wall thickening with pericolic fat stranding and fluid. Appearance is suspicious for nonspecific colitis. 2. Increased colonic stool burden suggesting constipation. 3. Small hiatal hernia, similar to prior. Distal esophageal wall thickening suggesting esophagitis. Electronically signed by: Isaias Henley M.D. 10/17/23 22:46 PM Discharge Plan Visit Data Chief Complaint: Abdominal Pain Stated Complaint: AB PAIN, VOMITING ED Provider: Christina Carpio Discharge Problem: Abdominal pain, Leukocytosis, Colitis, Elevated lactic acid level, Elevated procalcitonin Forms Stand Alone Forms: My [facility] [employer] Prescriptions Prescriptions: No Action trazodone 50 mg tablet 50 mg PO HS atorvastatin 10 mg tablet 10 mg PO DAILY tramadol 50 mg tablet 50 mg PO Q6H PRN (Reason: Pain) amlodipine 5 mg tablet 5 mg PO DAILY Qty: 30 0RF cetirizine [Zyrtec] 10 mg Tablet 10 mg PO QAM lisinopril 20 mg Tablet 20 mg PO QAM montelukast [Singulair] 10 mg Tablet 10 mg PO HS hydroxyzine HCl 10 mg tablet 10 mg PO TID PRN (Reason: anxiety) Qty: 10 0RF Referrals Referrals: Kathy Sweeney MD [Primary Care Provider] -
[2023-10-17 22:28] LABS: Appearance Urine Clear (Clear); Bacteria Urine Automated None Seen (None Seen); Bilirubin Urine Negative (Negative); Blood Urine Negative (Negative); Color Urine Dark Yellow; Epithelial Cell Urine Auto 0-2 /hpf (0-2); Glucose Urine UA Negative (Negative); Ketones Urine 1+ (Negative); Leukocyte Esterase Urine Trace (Negative); Nitrite Urine Negative (Negative); Protein Urine 1+ (Negative); RBC Urine Automated 0-2 /hpf (0-2); Specific Gravity Urine 1.039 (1.000-1.030); Urobilinogen Urine Negative (Negative); WBC Urine Automated 0-5 /hpf (0-5); pH Urine 6.5 (4.5-7.5)
[2023-10-17 22:35] LABS: Basophils # (auto) 0.14 K/uL (0.00-0.20); Basophils % (auto) 0.3 %; Immature Granulocytes # (auto) 0.68 K/uL (0.01-0.20); Immature Granulocytes % (auto) 1.6 %; Lymphocytes # (auto) 1.09 K/uL (1.20-3.40); Lymphocytes % (auto) 2.5 %; Monocytes # (auto) 2.11 K/uL (0.11-0.59); Monocytes % (auto) 4.9 %; Neutrophils # (auto) 39.04 K/uL (1.40-6.50); Neutrophils % (auto) 90.7 %; RBC Morphology Unremarkable
--- NOTE | 2023-10-17 22:46 | CT Scan Report ---
Exam(s): CT ABDOMEN + PELVIS With Contrast IV Amt: 91 ml opti 320 EXAM: CT Abdomen and Pelvis With Intravenous Contrast CLINICAL HISTORY: Reason for exam: abd pain. TECHNIQUE: Axial computed tomography images of the abdomen and pelvis with intravenous contrast. CTDI is 18.64 mGy and DLP is 944.76 mGy-cm. Automated exposure control was utilized for the study. A dose lowering technique was utilized adhering to the principles of ALARA. CONTRAST: Patient received 91 ml opti 320 of IV contrast COMPARISON: 10/29/22 FINDINGS: Lung bases: Emphysema. Mediastinum: Small hiatal hernia, similar to prior. Distal esophageal wall thickening suggesting esophagitis. ABDOMEN: Liver: Unremarkable. No mass. Gallbladder and bile ducts: Unremarkable. No calcified stones. No ductal dilation. Pancreas: Unremarkable. No mass. No ductal dilation. Spleen: Unremarkable. No splenomegaly. Adrenals: Unremarkable. No mass. Kidneys and ureters: Symmetric renal enhancement. No hydronephrosis. Simple renal cysts; no follow-up indicated. Duplex left renal collecting system. Stomach and bowel: Left hemicolon wall thickening with pericolic fat stranding and fluid. Increased colonic stool burden suggesting constipation. No mechanical bowel obstruction. PELVIS: Appendix: No evidence of appendicitis. Bladder: Unremarkable. No mass. Reproductive: Unremarkable as visualized. ABDOMEN and PELVIS: Intraperitoneal space: Small volume of ascites. No free air. Bones/joints: Osteopenia. Disc and facet degeneration in the lumbar spine. No acute fracture. No dislocation. Soft tissues: Unremarkable. Vasculature: Coronary artery atherosclerosis. Atherosclerosis without aortic aneurysm. Lymph nodes: Unremarkable. No enlarged lymph nodes. IMPRESSION: 1. Left hemicolon wall thickening with pericolic fat stranding and fluid. Appearance is suspicious for nonspecific colitis. 2. Increased colonic stool burden suggesting constipation. 3. Small hiatal hernia, similar to prior. Distal esophageal wall thickening suggesting esophagitis. Electronically signed by: Isaias Henley M.D. 10/17/23 22:46 PM
[2023-10-17] MEDS: fentaNYL citrate PF 100 MCG/2 ML VIAL IV STA (22:49)
[2023-10-17] MEDS: PIPERACILLIN/TAZOBACTAM 4.5 GM/100 ML BAG IV ONE (22:51)
[2023-10-17] MEDS: PANTOprazole 40 MG in SYRINGE 0 ML IV ONE (23:35)
[2023-10-18] MEDS: SODIUM CHLORIDE 0.9% 1,000 ML IV ONE (00:19)
[2023-10-18] MEDS: MoRPHine SULFATE 4 MG/ML 1 ML CARP\\VIAL IV STA (00:20)
--- NOTE | 2023-10-18 00:35 | Surgery Consultation ---
Date of Consultation October 18, 2023 Assessment & Plan (1) Colitis: I discussed with the treating emergency room physician the patient is being admitted on the hospitalist service. From a surgical perspective we recommend the following: Provide analgesics provide antiemetics provide IV fluid for hydrationas the patient has received 2 L of normal saline solution in the emergency department I ordered maintenance fluids running 125 cc/h Antibiotics in form of Zosyn have been initiated and he should continue Serial labs to be followed Patient was noted to have an elevated lactic acid level of at time of presentation, and a repeat lactic acid level after the patient received intravenous fluids has improved to approximately 2.7. N.p.o. status should be implemented for the present time Will continue close clinical monitoring and fluid resuscitation as outlined above with further recommendations to follow. Addendum (4:45 AM) Patient revisited at bedside. She continues to have abdominal pain similar to what was noted during my visit with her in the emergency department. Patient's vitals were reviewed she remains normotensive with heart rate in the 90s. She is afebrile. Pulse ox is 97% on room air. There is been no change in patient's abdominal exam. It is soft but tender in the lower abdomen as noted before. Lactic acid levels have been trended with most recent lactic acid noted to be 2.6 (her presenting lactic acid level was 3.7) Will continue n.p.o. status, antibiotics (patient did receive Zosyn by the emergency room physician, but this has been changed to Cipro and Flagyl as she has a penicillin allergy), and intravenous fluids Supervising Physician Co-Signing Physician Notes Her CT images and results were personally viewed and interpreted by myself She does have a fair amount of inflammation in her left and sigmoid colon without any michelle signs of ischemia She does have an elevated white blood cell count that is slightly lower this morning Her lactate has cleared which is encouraging Her exam is certainly concerning for ischemia and we will watch her closely Would send a C. difficile as this can cause a severely elevated white blood cell count History of Present Illness Reason for Consultation: Colitis History of Present Illness This is an 83-year-old female who presented to the emergency department secondary to abdominal pain. Patient notes that the pain began approximately 2 days ago and is noted in the lower abdomen both on the right and left side but it is worse on the left. She notes that the pain is nonradiating. She notes that the pain is somewhat worse with movement and palpation of her abdomen and is improved with lying still. She has had some nausea and vomiting. She has also had some loose bowel movements with questionable blood in her bowel movement. She did not have any fevers, shakes, or chills. She denies having any prior abdominal surgeries in the past. She does not take any blood thinners. Since arrival to the hospital the patient has had labs and imaging which I independent reviewed. CT scan abdomen pelvis was performed. There is no free air noted on the study. The patient was noted to have small volume of ascites. The patient's left hemicolon wall was noted to be thickened with pericolonic fat stranding and fluid which was suspicious for an on [place] colitis. Labs included CBC her white blood cell count was elevated 43.0. Hemoglobin and hematocrit were noted to be normal. Her platelet count is 4-3000. Coagulation studies were normal. Chemistry profile showed sodium and potassium are normal. BUN and creatinine were 24 and 0.9. Her lactic acid level was elevated at 3.7. There is no elevation of her bilirubin or transaminases. There is a slight elevation of the alkaline phosphatase at 141. Her lipase was nonelevated. Urinalysis showed trace leukocyte Estrace but was otherwise not indicative of infection. Patient did have a bio fire panel sent and was negative for all viruses tested. At the time of my interview the patient was not in distress but was somewhat uncomfortable with movement and any palpation of her abdomen. Allergies Allergy/AdvReac Type Severity Reaction Status Date / Time aspirin Allergy Mild lip sweling Verified 04/28/22 11:25 Penicillins Allergy Mild UNKNOWN Verified 04/28/22 11:26 diphenhydramine Allergy Edema of Verified 04/28/22 11:25 [From Benadryl] face, lips, tongue ibuprofen Allergy edema of Verified 04/28/22 11:25 face, lips, tongue red dye Allergy Edema of Verified 04/28/22 11:25 face, lips & tongue. Hives Home Medications Medication Instructions Recorded Confirmed Type albuterol sulfate 90 mcg/actuation 2 inh inhalation Q4H PRN Shortness 10/18/23 10/18/23 History aerosol inhaler Of Breath Or Wheezing amlodipine 5 mg tablet 5 mg PO DAILY 10/18/23 10/18/23 History atorvastatin 10 mg tablet 10 mg PO DAILY 10/18/23 10/18/23 History estradiol 0.01% (0.1 mg/gram) 1 applic vaginal UD 10/18/23 10/18/23 History vaginal cream famotidine 20 mg tablet 20 mg PO HS 10/18/23 10/18/23 History fluticasone propionate 110 2 puff inhalation BID 10/18/23 10/18/23 History mcg/actuation HFA aerosol inhaler lisinopril 20 mg tablet 20 mg PO DAILY 10/18/23 10/18/23 History meclizine 25 mg tablet 25 mg PO TID PRN Dizziness Or 10/18/23 10/18/23 History Vertigo montelukast 10 mg tablet 10 mg PO HS 10/18/23 10/18/23 History tramadol 50 mg tablet 50 mg PO Q6H PRN Pain 10/18/23 10/18/23 History trazodone 50 mg tablet 50 mg PO HS 10/18/23 10/18/23 History Patient History Medical History Osteopenia GERD (gastroesophageal reflux disease) Hyperlipidemia Hypertension Surgical History History of cataract surgery RT History of laparotomy for removal ectopic History of esophagogastroduodenoscopy (EGD) Hx of colonoscopy Social History Smoking Status: Former smoker Smoking End Date: 1971; Second Hand Exposure: No; Do You Dip or Chew Tobacco: No; Hx Alcohol Use: No Hx Substance Use: No Preferred Language: Cape Verdean Communication Ability: Effective Assistant Professor Of Criminal Justice Required: No Beliefs That Will Affect Care: None Current Living Situation: Alone Current Living Situation Comment: Son lives next door and adult granddaughter also checks on her Other Information That Helps Us Care for You: No Feels Safe at Home: Yes Safety Concerns: Feels Safe At This Time Assistive Devices: Glasses and Oxygen - at Night Review of Systems Review of Systems: All systems reviewed & are unremarkable except as noted in HPI & below Physical Exam Constitutional: WD/WN, vitals as above Eyes: no conjunctival abnormality ENMT: Ears: no hearing impairment and no external ear abnormality Mouth: no oropharynx abnormality Neck: trachea midline Respiratory: normal respiratory effort; no respiratory distress and no labored breathing Cardiovascular: Rate/Rhythm: regular rate and regular rhythm Gastrointestinal (Abdomen): Patient's abdomen is soft and is nondistended. Patient did have a significant tenderness in the right left lower quadrants with associated guarding. Skin: no rashes Neurologic: moves all extremities Results & Data Vital Signs (Past 12 Hours) Vital Signs Temp Pulse Pulse Resp BP BP Pulse Ox 10/17/23 23:01 96 10/17/23 23:00 80 L 10/17/23 22:40 92 H 21 147/66 H 96 10/17/23 20:55 101 H 10/17/23 20:35 10/17/23 20:35 36.6 C 99 H 18 150/72 H 94 O2 Del Method O2 Flow Rate 10/17/23 23:01 Nasal Cannula 3 10/17/23 23:00 Room Air 10/17/23 22:40 Room Air 10/17/23 20:55 10/17/23 20:35 Room Air 10/17/23 20:35 Room Air PG Care Time/CCT Total # of Minutes Spent Total Time Spent with Patient: Total time spent is greater than 50% in coordination of care (as documented) at patient's floor/unit and/or counseling patient: Coding Level of Care Code 10547 INT INP/OBS CARE 3/75MIN Diagnoses Colitis K52.9
[2023-10-18] MEDS: SODIUM CHLORIDE 0.9% 1,000 ML IV SCH ×2 (01:12→07:55)
[2023-10-18] MEDS: PANTOprazole 40 MG in DEXTROSE 5% MINI-B 100 ML IV SCH (02:46)
[2023-10-18] MEDS: PANTOprazole 40 MG in SYRINGE 0 ML IV ONE (02:46)
--- NOTE | 2023-10-18 03:01 | History & Physical Report ---
Date of Service October 18, 2023 Assessment & Plan (1) Abdominal pain: Plan: 83-year-old female with past med history significant for primary hyperparathyroidism, hyperlipidemia, prediabetes, mild persistent asthma, aortic ectasia, hypertension, mild mitral regurgitation, diastolic dysfunction, irritable bowel syndrome, GERD with esophagitis, incomplete bladder emptying, hereditary and idiopathic peripheral neuropathy, mild dementia, Sjogren's syndrome, history of B-cell lymphoma presents with abdominal pain and nausea and vomiting. Patient states having abdominal pain since yesterday morning severe in nature. Patient also had several episodes nausea and vomiting. She says vomit is dark color. She also has black stools. Patient seem somewhat uncomfortable with pain. Denies any chest pain or shortness of breath. No cough. No headache. Vision is okay. No runny nose or sore throat. Micturating okay. Hemodynamics are okay. Abdominal pain CT scan suspicious for nonspecific colitis and also esophagitis Initial lactic acid was 3.7 trended down to 2.9 and 2.6 Elevated procalcitonin BioFire negative and UA negative Possible ischemic colitis Received a dose of Zosyn On IV fluids Pain control N.p.o. As patient is allergic to penicillins placed on IV Cipro and Flagyl Surgery on board Close monitor GI bleed Having dark vomitus and black stools Esophagitis on CAT scan Hemoglobin stable at 15 Hemodynamics are okay Blood consent obtained N.p.o. on IV fluids Protonix drip Telemetry GI consult Mild persistent asthma Continue home inhalers Requiring oxygen Will follow chest x-ray Hypertension hold amlodipine and Hold lisinopril for now Will monitor Hyperlipidemia Holding statin restart when able to Abnormal EKG Denies chest pain Troponin unremarkable Will follow repeat troponin and echo and repeat EKG History of diastolic dysfunction Monitor for volume overload Follow echo History of cutaneous B-cell lymphoma Following with hematology and oncology Mild dementia Monitor for delirium GERD Currently on PPI drip History of incomplete bladder emptying Monitor for urinary retention Chronic leukocytosis WBC elevated at 43 Usually around 14K On antibiotics follow c diff Follow repeat labs History of hyperparathyroidism Calcium levels okay prediabetes follow hba1c levels. DVT prophylaxis SCDs for now Disposition Telemetry Full code History of Present Illness Chief Complaint: Abdominal pain nausea and vomiting Primary Care Provider: Kathy Sweeney MD 83-year-old female with past med history significant for primary hyperparathyroidism, hyperlipidemia, prediabetes, mild persistent asthma, aortic ectasia, hypertension, mild mitral regurgitation, diastolic dysfunction, irritable bowel syndrome, GERD with esophagitis, incomplete bladder emptying, hereditary and idiopathic peripheral neuropathy, mild dementia, Sjogren's syndrome, history of B-cell lymphoma presents with abdominal pain and nausea and vomiting. Patient states having abdominal pain since yesterday morning severe in nature. Patient also had several episodes nausea and vomiting. She says vomit is dark color. She also has black stools. Patient seem somewhat uncomfortable with pain. Denies any chest pain or shortness of breath. No cough. No headache. Vision is okay. No runny nose or sore throat. Micturating okay. Hemodynamics are okay. Past medical history. As mentioned above Past surgical history. Colonoscopy. EGD. Laparoscopic paraesophageal hernia repair. Family history mother had breast cancer. Hypertension. Son has hyperlipidemia Social history. Quit smoking 1971. Smoked 1 pack a day for 5 years. No alcohol use. No drug use. Allergies Allergy/AdvReac Type Severity Reaction Status Date / Time aspirin Allergy Mild lip sweling Verified 04/28/22 11:25 Penicillins Allergy Mild UNKNOWN Verified 04/28/22 11:26 diphenhydramine Allergy Edema of Verified 04/28/22 11:25 [From Benadryl] face, lips, tongue ibuprofen Allergy edema of Verified 04/28/22 11:25 face, lips, tongue red dye Allergy Edema of Verified 04/28/22 11:25 face, lips & tongue. Hives Home Medications Medication Instructions Recorded Confirmed Type albuterol sulfate 90 mcg/actuation 2 inh inhalation Q4H PRN Shortness 10/18/23 10/18/23 History aerosol inhaler Of Breath Or Wheezing amlodipine 5 mg tablet 5 mg PO DAILY 10/18/23 10/18/23 History atorvastatin 10 mg tablet 10 mg PO DAILY 10/18/23 10/18/23 History estradiol 0.01% (0.1 mg/gram) 1 applic vaginal UD 10/18/23 10/18/23 History vaginal cream famotidine 20 mg tablet 20 mg PO HS 10/18/23 10/18/23 History fluticasone propionate 110 2 puff inhalation BID 10/18/23 10/18/23 History mcg/actuation HFA aerosol inhaler lisinopril 20 mg tablet 20 mg PO DAILY 10/18/23 10/18/23 History meclizine 25 mg tablet 25 mg PO TID PRN Dizziness Or 10/18/23 10/18/23 History Vertigo montelukast 10 mg tablet 10 mg PO HS 10/18/23 10/18/23 History tramadol 50 mg tablet 50 mg PO Q6H PRN Pain 10/18/23 10/18/23 History trazodone 50 mg tablet 50 mg PO HS 10/18/23 10/18/23 History Past Med/Surg History Problem List (Updated 10/18/23 @ 01:06 by Christina Carpio MD) Elevated procalcitonin (Acute) Elevated lactic acid level (Acute) Colitis (Acute) Leukocytosis (Acute) Abdominal pain (Acute) Colitis Dementia (Acute) Shortness of breath (Acute) Atypical chest pain (Acute) Vasovagal episode UTI (urinary tract infection) Leukocytosis (Acute) Bradycardia (Acute) Acute UTI (Acute) Syncope (Acute) Asthma (Acute) hx-"no problems for a long time" Bradycardia Syncope and collapse Hyperparathyroidism B-cell lymphoma Hypertensive urgency Confusion (Acute) Generalized weakness (Acute) Acute UTI (urinary tract infection) (Acute) Medical History Osteopenia GERD (gastroesophageal reflux disease) Hyperlipidemia Hypertension Surgical History History of cataract surgery RT History of laparotomy for removal ectopic History of esophagogastroduodenoscopy (EGD) Hx of colonoscopy Social History Smoking Status: Former smoker Smoking End Date: 1971; Second Hand Exposure: No; Do You Dip or Chew Tobacco: No; Hx Alcohol Use: No Hx Substance Use: No Preferred Language: Congolese Communication Ability: Effective Shot Dropper Required: No Beliefs That Will Affect Care: None Current Living Situation: Alone Current Living Situation Comment: Son lives next door and adult granddaughter also checks on her Other Information That Helps Us Care for You: No Feels Safe at Home: Yes Safety Concerns: Feels Safe At This Time Assistive Devices: Glasses and Oxygen - at Night Review of Systems Review of Systems: All systems reviewed & are unremarkable except as noted in HPI & below Physical Exam Physical Exam: General- Not in distress. Head- atraumatic Eyes- PERRL. ENT- oropharynx clear Neck- supple, no JVD. Lungs- clear to auscultation no wheezing or crackles Heart- regular rate and rhythm; no murmur, no gallop. Abdomen- normal bowel sounds, soft, diffuse tender, guarding present, no distension Extremities- no pretibial edema, no erythema seen Neuro- alert, oriented PERRL,no facial palsy; no dysarthria; moves extremities. Skin- warm & dry Results & Data Results & Data Vital Signs (Past 12 Hours) Vital Signs Temp Pulse Pulse Resp BP BP Pulse Ox 10/18/23 01:25 95 10/18/23 01:20 88 L 10/18/23 01:00 99 H 22 138/60 99 10/18/23 00:43 94 H 10/17/23 23:01 96 10/17/23 23:00 80 L 10/17/23 22:40 92 H 21 147/66 H 96 10/17/23 20:55 101 H 10/17/23 20:35 10/17/23 20:35 36.6 C 99 H 18 150/72 H 94 O2 Del Method O2 Flow Rate 10/18/23 01:25 Nasal Cannula 5 10/18/23 01:20 Nasal Cannula 3 10/18/23 01:00 Nasal Cannula 3 10/18/23 00:43 10/17/23 23:01 Nasal Cannula 3 10/17/23 23:00 Room Air 10/17/23 22:40 Room Air 10/17/23 20:55 10/17/23 20:35 Room Air 10/17/23 20:35 Room Air Diagnostic Findings Laboratory Results WBC 43.06 K/ul (4.8-10.8) H* 10/17/23 20:32 RBC 5.36 M/uL (4.20-5.40) 10/17/23 20:32 Hgb 15.3 g/dl (12.0-16.0) 10/17/23 20:32 Hct 45.3 % (37.0-47.0) 10/17/23 20:32 MCV 84.5 fL (80.0-100.0) 10/17/23 20:32 MCH 28.5 pg (25.0-34.0) 10/17/23 20: MCHC 33.8 g/dL (32.0-36.0) 10/17/23: RDW Std Deviation 41.7 fL (36.4-46.3) 10/17/23: RDW Coeff of [place] 13.6 % (11.5-14.5) 10/17/23: Plt Count 403 K/uL (130-400) H 10/17/23 20: MPV 9.4 fL (9.4-12.4) 10/17/23: Immature Gran % (Auto) 1.6 % 10/17/23: Neut % (Auto) 90.7 % 10/17/23: Lymph % (Auto) 2.5 % 10/17/23: [place] % (Auto) 4.9 % 10/17/23: Eos % (Auto) 0.0 % 10/17/23: Baso % (Auto) 0.3 % 10/17/23: Neut # (Auto) 39.04 K/uL (1.40-6.50) H 10/17/23 20:32 Lymph # (Auto) 1.09 K/uL (1.20-3.40) L 10/17/23: [place]ie # (Auto) 2.11 K/uL (0.11-0.59) H 10/17/23 20:32 Eos # (Auto) 0.00 K/uL (0.00-0.50) 10/17/23: Baso # (Auto) 0.14 K/uL (0.00-0.20) 10/17/23: Immature Gran # (Auto) 0.68 K/uL (0.01-0.20) H 10/17/23:32 RBC Morphology Unremarkable 10/17/23:32 PT 11.4 Seconds (9.0-12.0) 10/17/23 20:32 INR 1.1 (0.9-1.1) 10/17/23 20:32 Sodium 137 mmol/L (136-145) 10/17/23:32 Potassium 4.2 mmol/L (3.5-5.1) 10/17/23 20:32 Chloride 101 mmol/L (98-107) 10/17/23 20:32 Carbon Dioxide 21 mmol/L (21-32) 10/17/23 20:32 Anion Gap 15 (3-11) H 10/17/23 20:32 BUN 24 mg/dl (6-23) H 10/17/23 20:32 Creatinine 0.98 mg/dl (0.6-1.2) 10/17/23 20:32 Est Cr Clr Drug Dosing 38.3 ml/min 10/17/23 20:32 Est GFR ( Amer) 61.8 ml/min 10/17/23 20:32 Est GFR (Non-Af Amer) 53.3 ml/min 10/17/23 20:32 BUN/Creatinine Ratio 24.5 (10-20) H 10/17/23 20:32 Glucose 216 mg/dl (70-99(Fasting)) H 10/17/23 20:32 Lactate 2.6 mmol/L (0.4-2.0) H* 10/18/23 02:08 Calcium 9.2 mg/dl (8.6-10.3) 10/17/23 20:32 Total Bilirubin 1.0 mg/dl (0.2-1.0) 10/17/23 20:32 AST 17 U/L (13-39) 10/17/23 20:32 ALT 15 U/L (7-52) 10/17/23 20:32 Alkaline Phosphatase 141 U/L (34-104) H 10/17/23 20:32 Troponin I High Sens 6.8 pg/ml (0-14) 10/17/23 20:32 Total Protein 6.8 gm/dl (6.0-8.3) 10/17/23 20:32 Albumin 4.1 gm/dl (3.4-5.0) 10/17/23 20:32 Globulin 2.7 gm/dl (2.5-4.0) 10/17/23 20:32 Albumin/Globulin Ratio 1.5 (0.9-2) 10/17/23 20:32 Lipase 24 U/L (11-82) 10/17/23 20:32 Procalcitonin 2.25 ng/ml (0-0.5) H 10/17/23 20:32 Urine Color Dark Yellow 10/17/23 21:58 Urine Appearance Clear (Clear) 10/17/23 21:58 Urine pH 6.5 (4.5-7.5) 10/17/23 21:58 Ur Specific [place] 1.039 (1.000-1.030) H 10/17/23 21:58 Urine Protein 1+ (Negative) H 10/17/23 21:58 Urine Glucose (UA) Negative (Negative) 10/17/23 21:58 Urine Ketones 1+ (Negative) H 10/17/23 21:58 Urine Blood Negative (Negative) 10/17/23 21:58 Urine Nitrite Negative (Negative) 10/17/23 21:58 Urine Bilirubin Negative (Negative) 10/17/23 21:58 Urine Urobilinogen Negative (Negative) 10/17/23 21:58 Ur Leukocyte Esterase Trace (Negative) H 10/17/23 21:58 Urine WBC (Auto) 0-5 /hpf (0-5) 10/17/23 21:58 Urine RBC (Auto) 0-2 /hpf (0-2) 10/17/23 21:58 U Hyaline Cast (Auto) 6-10 /lpf (0-2) H 10/17/23 21:58 U Epithel Cells (Auto) 0-2 /hpf (0-2) 10/17/23 21:58 Urine Bacteria (Auto) None Seen (None Seen) 10/17/23 21:58 Adenovirus (PCR) Not Detected (NotDetected) 10/17/23 20:30 B. pertussis DNA (PCR) Not Detected (NotDetected) 10/17/23 20:30 B.parapertussis DNA PCR Not Detected (NotDetected) 10/17/23 20:30 C. pneumoniae DNA (PCR) Not Detected (NotDetected) 10/17/23 20:30 Coronavirus OC43 (PCR) Not Detected (NotDetected) 10/17/23 20:30 Coronavirus HKU1 (PCR) Not Detected (NotDetected) 10/17/23 20:30 Coronavirus 229E (PCR) Not Detected (NotDetected) 10/17/23 20:30 SARS-CoV-2 (PCR) Not Detected (NotDetected) 10/17/23 20:30 Coronavirus NL63 (PCR) Not Detected (NotDetected) 10/17/23 20:30 Human Metapneumovir PCR Not Detected (NotDetected) 10/17/23 20:30 Influenza Type A (PCR) Not Detected (NotDetected) 10/17/23 20:30 Influenza Type B (PCR) Not Detected (NotDetected) 10/17/23 20:30 M. pneumoniae (PCR) Not Detected (NotDetected) 10/17/23 20:30 Parainfluenza 1 (PCR) Not Detected (NotDetected) 10/17/23 20:30 Parainfluenza 2 (PCR) Not Detected (NotDetected) 10/17/23 20:30 Parainfluenza 3 (PCR) Not Detected (NotDetected) 10/17/23 20:30 Parainfluenza 4 (PCR) Not Detected (NotDetected) 10/17/23 20:30 RSV (PCR) Not Detected (NotDetected) 10/17/23 20:30 Entero/Rhino (PCR) Not Detected (NotDetected) 10/17/23 20:30 Blood Type O Positive 10/18/23 00:40 Antibody Screen NEGATIVE 10/18/23 00:40 Impressions Abdomen/Pelvis CT 10/17/23 20:36 Exam(s): CT ABDOMEN + PELVIS With Contrast IV Amt: 91 ml opti 320 EXAM: CT Abdomen and Pelvis With Intravenous Contrast CLINICAL HISTORY: Reason for exam: abd pain. TECHNIQUE: Axial computed tomography images of the abdomen and pelvis with intravenous contrast. CTDI is 18.64 mGy and DLP is 944.76 mGy-cm. Automated exposure control was utilized for the study. A dose lowering technique was utilized adhering to the principles of ALARA. CONTRAST: Patient received 91 ml opti 320 of IV contrast COMPARISON: 10/29/22 FINDINGS: Lung bases: Emphysema. Mediastinum: Small hiatal hernia, similar to prior. Distal esophageal wall thickening suggesting esophagitis. ABDOMEN: Liver: Unremarkable. No mass. Gallbladder and bile ducts: Unremarkable. No calcified stones. No ductal dilation. Pancreas: Unremarkable. No mass. No ductal dilation. Spleen: Unremarkable. No splenomegaly. Adrenals: Unremarkable. No mass. Kidneys and ureters: Symmetric renal enhancement. No hydronephrosis. Simple renal cysts; no follow-up indicated. Duplex left renal collecting system. Stomach and bowel: Left hemicolon wall thickening with pericolic fat stranding and fluid. Increased colonic stool burden suggesting constipation. No mechanical bowel obstruction. PELVIS: Appendix: No evidence of appendicitis. Bladder: Unremarkable. No mass. Reproductive: Unremarkable as visualized. ABDOMEN and PELVIS: Intraperitoneal space: Small volume of ascites. No free air. Bones/joints: Osteopenia. Disc and facet degeneration in the lumbar spine. No acute fracture. No dislocation. Soft tissues: Unremarkable. Vasculature: Coronary artery atherosclerosis. Atherosclerosis without aortic aneurysm. Lymph nodes: Unremarkable. No enlarged lymph nodes. IMPRESSION: 1. Left hemicolon wall thickening with pericolic fat stranding and fluid. Appearance is suspicious for nonspecific colitis. 2. Increased colonic stool burden suggesting constipation. 3. Small hiatal hernia, similar to prior. Distal esophageal wall thickening suggesting esophagitis. Electronically signed by: Isaias Henley M.D. 10/17/23 22:46 PM ECG Additional Comments: EG. Sinus tachycardia 105. Left axis deviation. ST depression inferior and lateral leads. Code Status & VTE Plan VTE Prophylaxis Plan VTE Prophylaxis will be ordered: Yes
[2023-10-18] MEDS: HYDROmorphone INJ 0.5 MG/0.5 ML SYR IV STA (03:15)
[2023-10-18] MEDS ORDERED: MECLIZINE HCL 25 MG TAB PO PRN (03:48)
[2023-10-18] MEDS ORDERED: ALBUTEROL HFA 8 GM INHALER INH PRN (03:48)
[2023-10-18] MEDS ORDERED: HYDROmorphone INJ 0.5 MG/0.5 ML SYR IV PRN (03:48)
[2023-10-18] MEDS ORDERED: NITROGLYCERIN SL 0.4 MG/TAB TAB SL PRN (03:48)
[2023-10-18] MEDS ORDERED: LABETALOL HCL IV 5 MG/ML 20ML IV PRN (03:48)
[2023-10-18] MEDS: metroNIDAZOLE 500 MG/100 ML BAG IV SCH (05:05)
[2023-10-18 06:11] LABS: BUN Creatinine Ratio 27.3 (10-20); Calcium 7.6 mg/dl (8.6-10.3); Creatinine Clr Calc Pharmacy 49.6 ml/min; Est GFR (African American) 82.8 ml/min; Est GFR (Non-African American) 71.4 ml/min; Magnesium 1.9 mg/dl (1.7-2.4); Potassium 3.8 mmol/L (3.5-5.1)
[2023-10-18] MEDS: CIPROFLOXACIN / D5W 400 MG/200 ML BAG IV SCH (06:13)
[2023-10-18] MEDS: HYDROmorphone INJ 0.5 MG/0.5 ML SYR IV PRN (06:14)
[2023-10-18 06:20] LABS: Basophils # (auto) 0.01 K/uL (0.00-0.20); Hematocrit (blood only) 40.6 % (37.0-47.0); Hemoglobin 13.8 g/dl (12.0-16.0); Immature Granulocytes # (auto) 0.39 K/uL (0.01-0.20); Lymphocytes # (auto) 0.93 K/uL (1.20-3.40); Lymphocytes % (auto) 2.4 %; Mean Corpuscular Hemoglobin 28.5 pg (25.0-34.0); Mean Corpuscular Volume 83.7 fL (80.0-100.0); Monocytes # (auto) 1.94 K/uL (0.11-0.59); Neutrophils # (auto) 35.59 K/uL (1.40-6.50); Neutrophils % (auto) 91.6 %; Platelet Count 354 K/uL (130-400); RDW Coefficient of Variation 13.7 % (11.5-14.5); RDW Standard Deviation 42.1 fL (36.4-46.3); Red Blood Count 4.85 M/uL (4.20-5.40); White Blood Count 38.86 K/ul (4.8-10.8)
[2023-10-18 06:35] LABS: Troponin I High Sensitivity 39.9 pg/ml (0-14)
[2023-10-18 06:58] LABS: Estimated Average Glucose 120 mg/dl; Hemoglobin A1C 5.8 % (4.5-5.6)
[2023-10-18] MEDS: CALCIUM GLUCONATE 1,000 MG/60 ML BAG IV SCH (07:44)
[2023-10-18] MEDS: FLUTICASONE FUROATE 200MCG 14 PUFFS/INHALER INH SCH (08:39)
--- NOTE | 2023-10-18 08:39 | XRay Report ---
XR chest 1V portable HISTORY: hypoxia COMPARISON: Chest 10/13/2023. FINDINGS: Mild elevation of the left hemidiaphragm with left basilar linear densities. This favors hester bsegmental atelectasis. Otherwise, the lungs are near. The heart is normal in size. Left tracheal dev iation, unchanged. No evidence for pulmonary edema. No acute fractures. IMPRESSION: Mild elevation of the left hemidiaphragm with left basilar linear densities. This favors subsegmental atelectasis. ACT 112: Negative or not required by law. Electronically signed by: Milton Pulido M.D. 10/18/2023 8:37 AM
--- NOTE | 2023-10-18 10:01 | Hospitalist Progress Note ---
Date of Service October 18, 2023 Assessment & Plan (1) Abdominal pain: Plan: 83-year-old female with past med history significant for primary hyperparathyroidism, hyperlipidemia, prediabetes, mild persistent asthma, aortic ectasia, hypertension, mild mitral regurgitation, diastolic dysfunction, irritable bowel syndrome, GERD with esophagitis, incomplete bladder emptying, hereditary and idiopathic peripheral neuropathy, mild dementia, Sjogren's syndrome, history of B-cell lymphoma presents with abdominal pain and nausea and vomiting. Patient also had several episodes nausea and vomiting. She says vomit is dark color. She also reported black stools. . Denies any chest pain or shortness of breath. No cough. No headache. Abdominal pain Possible Ischemic Colitis CT scan suspicious for nonspecific colitis and also esophagitis Initial lactic acid was 3.7 trended down to 2.9 and 2.6 Elevated procalcitonin BioFire negative and UA negative As patient is allergic to penicillins placed on IV cefepime and Flagyl On IV fluids Pain control on clear liquid diet as per GI Surgery on board Close monitor Possible GI bleed Having dark vomitus and black stools Esophagitis on CAT scan GI consulted; no plans for egd inpatient on protonix drip Mild persistent asthma Continue home inhalers Requiring oxygen CXR- no consolidation suggestive of pneumonia Hypertension hold amlodipine and Hold lisinopril for now Will monitor Hyperlipidemia Holding statin restart when able to Elevated troponin High sensitivity troponin elevated EKG shows sinus tachycardia; non-specific ST wave changes Echocardiogram shows EF of 60 to 65 %; grade I diastolic dysfunction History of diastolic dysfunction Monitor for volume overload History of cutaneous B-cell lymphoma Following with hematology and oncology Mild dementia Monitor for delirium GERD Currently on PPI drip History of incomplete bladder emptying Monitor for urinary retention Chronic leukocytosis WBC elevated at 43 on admission Usually around 14K On antibiotics follow c diff Follow repeat labs History of hyperparathyroidism Calcium levels wnl prediabetes 5.8% of HbA1c DVT prophylaxis SCDs for now Disposition Telemetry Full code Discussed Plan of care with patient's son at bedside. Answered questions/queries. Time spent evaluating patient, direct bedside care, chart review, placing orders, interpretation of diagnostic studies, discussion with consultants, patient, and family members, as well as other required patient management activities is 50 minutes Please note the above document was generated using voice recognition software. It may contain grammatical, syntax or spelling errors. Any formal questions or concerns about the content, text or information contained within the body of this dictation should be directly addressed to the provider for clarification Admission and Anticipated Discharge Date Admission Date: October 18, 2023 Subjective Patient seen and examined at bedside. Comfortable; not in distress. Reports that her abdominal pain has slightly improved. Review of Systems Review of Systems: All systems reviewed & are unremarkable except as noted in Subjective Physical Exam Physical Exam: General- Not in distress. Head- atraumatic Eyes- PERRL. ENT- oropharynx clear Neck- supple, no JVD. Lungs- clear to auscultation no wheezing or crackles Heart- regular rate and rhythm; no murmur, no gallop. Abdomen- normal bowel sounds, soft, diffuse tender, guarding present, no distension Extremities- no pretibial edema, no erythema seen Neuro- alert, oriented PERRL,no facial palsy; no dysarthria; moves extremities. Skin- warm & dry Results & Data Results & Data Vital Signs (Past 12 Hours) Vital Signs Temp Pulse Pulse Resp BP Pulse Ox O2 Del Method 10/18/23 07:53 36.9 C 97 H 17 119/71 97 Nasal Cannula 10/18/23 03:49 37 C 99 H 18 116/73 97 Room Air 10/18/23 03:48 99 H 10/18/23 03:48 Nasal Cannula 10/18/23 03:00 95 H 22 112/62 98 Nasal Cannula 10/18/23 01:25 95 Nasal Cannula 10/18/23 01:20 88 L Nasal Cannula 10/18/23 01:00 99 H 22 138/60 99 Nasal Cannula 10/18/23 00:43 94 H 10/17/23 23:01 96 Nasal Cannula 10/17/23 23:00 80 L Room Air 10/17/23 22:40 92 H 21 147/66 H 96 Room Air O2 Flow Rate 10/18/23 07:53 3 10/18/23 03:49 10/18/23 03:48 10/18/23 03:48 4 10/18/23 03:00 4 10/18/23 01:25 5 10/18/23 01:20 3 10/18/23 01:00 3 10/18/23 00:43 10/17/23 23:01 3 10/17/23 23:00 10/17/23 22:40
--- NOTE | 2023-10-18 10:20 | Gastrointestinal Consultation ---
Date of Consultation October 18, 2023 Assessment & Plan (1) Colitis: 83 year old female admitted with lower abd pain, nausea/vomiting and dark colored stool about 2 days ago. She has elevated WBC this AM at 38, CT imaging showing colitis and esophagitis. Her lactate has improved. She was evaluated by general surgery who initiated ABX therapy, IV fluids and serial abdominal examination. This AM she is tender but no rebound or guarding. Recommend KUB. Recommend checking for c.diff and stool biofire. Consider the addition of PO vancomycin given the degree of leukocytosis if we are unable to obtain a stool study. IV PPI BID for 48 hours then PO PPI thereafter. Trend HGB. Monitor and document GI output. Transfuse PRN per primary team. Recommend OP EGD with her [facility] care team given imaging showing esophagitis. I spent a total of 60 minutes on the date of service in review of patient's re cord, and previously obtained information in person and appropriate medical visit, discussion and education of plan, with patient and/or caregiver, placing orders for tests/referral/procedures as medically necessary and documentation of pertinent clinical information in patient's medical records for their visit today. Thank you for allowing us to participate in the care of this patient. Please call with any acute changes, questions or concerns. Please see addendum below with additional recommendation from my supervising physician. Supervising Physician Co-Signing Physician Notes Patient seen and examined. Case discussed with Chica PAUL. Patient has significant tenderness but states she is feeling improved. Her WBC is improving and her lactic acid has normalized. Her troponin has increased from about 7 to about 50. Rec: Continue to trend troponin and WBC Trial clear liquids - her KUB showed significant stool burden but no bowel dilation. Pending clinical course may consider ID/Cardiology consults. History of Present Illness Reason for Consultation: GI bleed Requesting Physician: Joselin Attending Physician: James Olivera MD History of Present Illness 83 year old female with history of hyperparathyroidism, hyperlipidemia, prediabetes, mild persistent asthma, aortic ectasia, hypertension, mild mitral regurgitation, diastolic dysfunction, irritable bowel syndrome, GERD with esophagitis, incomplete bladder emptying, hereditary and idiopathic peripheral neuropathy, mild dementia, Sjogren's syndrome, history of B-cell lymphoma admitted w/ abd pain, nausea/vomiting. Pt was seen and evaluated, chart reviewed. She notes she stared with lower abd pain about 1-2 days ago. Pain is explained as sharp, bilateral lower abd pain/discomfort. This was associated with nausea/vomiting. She denies any black or bloody emesis to me, however, there is documentation of ?coffee ground emesis. She notes she had some loose stools that appeared dark 2 days ago but has not had any further BMs. No fevers but has had chills. No CP, SOB. WBC 43 Lactate 3.7 --> 2.9 --> 2.6 --> 2 CTAP 2023: 1. Left hemicolon wall thickening with pericolic fat stranding and fluid. Appearance is suspicious for nonspecific colitis. Increased colonic stool burden suggesting constipation. Small hiatal hernia, similar to prior. Distal esophageal wall thickening suggesting esophagitis. EGD 2021: Small inlet patch in proximal esophagus. The Z-line was found 35 cm from the incisors. There was a single 1 cm column of columnar mucosa extending above the GE junction. This was biopsied. The esophagus was otherwise normal. There was a small paraesophageal hernia noted on retroflexion. There was patchy erythema in the body and antrum of the stomach. There was a scar in the antrum with two small erosions, likely related to recent resolving PUD. Stomach biopsies done. The duodenum was normal. Colonoscopy 2021: - Diverticulosis in the sigmoid colon and in the descending colon. - The examined portion of the ileum was normal. - Biopsies were taken with a cold forceps from the entire colon for evaluation of microscopic colitis. Allergies Allergy/AdvReac Type Severity Reaction Status Date / Time aspirin Allergy Mild lip sweling Verified 04/28/22 11:25 Penicillins Allergy Mild UNKNOWN Verified 04/28/22 11:26 diphenhydramine Allergy Edema of Verified 04/28/22 11:25 [From Benadryl] face, lips, tongue ibuprofen Allergy edema of Verified 04/28/22 11:25 face, lips, tongue red dye Allergy Edema of Verified 04/28/22 11:25 face, lips & tongue. Hives Home Medications Medication Instructions Recorded Confirmed Type albuterol sulfate 90 mcg/actuation 2 inh inhalation Q4H PRN Shortness 10/18/23 10/18/23 History aerosol inhaler Of Breath Or Wheezing amlodipine 5 mg tablet 5 mg PO DAILY 10/18/23 10/18/23 History atorvastatin 10 mg tablet 10 mg PO DAILY 10/18/23 10/18/23 History estradiol 0.01% (0.1 mg/gram) 1 applic vaginal UD 10/18/23 10/18/23 History vaginal cream famotidine 20 mg tablet 20 mg PO HS 10/18/23 10/18/23 History fluticasone propionate 110 2 puff inhalation BID 10/18/23 10/18/23 History mcg/actuation HFA aerosol inhaler lisinopril 20 mg tablet 20 mg PO DAILY 10/18/23 10/18/23 History meclizine 25 mg tablet 25 mg PO TID PRN Dizziness Or 10/18/23 10/18/23 History Vertigo montelukast 10 mg tablet 10 mg PO HS 10/18/23 10/18/23 History tramadol 50 mg tablet 50 mg PO Q6H PRN Pain 10/18/23 10/18/23 History trazodone 50 mg tablet 50 mg PO HS 10/18/23 10/18/23 History Patient History Medical History Osteopenia GERD (gastroesophageal reflux disease) Hyperlipidemia Hypertension Surgical History History of cataract surgery RT History of laparotomy for removal ectopic History of esophagogastroduodenoscopy (EGD) Hx of colonoscopy Social History Smoking Status: Former smoker Smoking End Date: 1971; Second Hand Exposure: No; Do You Dip or Chew Tobacco: No; Hx Alcohol Use: No Hx Substance Use: No Preferred Language: Citizen Of [place] Communication Ability: Effective Carburetor 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 Physical Exam Constitutional: WD/WN, vitals as above Respiratory: normal respiratory effort, lungs clear to auscultation Cardiovascular: RRR, no murmur, no edema Gastrointestinal (Abdomen): Inspection/Auscultation: normal bowel sounds Pe rcussion/Palpation: + abdomen tender and abdomen soft; no guarding and abdomen not rigid Skin: no rashes, warm and dry Results & Data Vital Signs (Past 12 Hours) Vital Signs Temp Pulse Pulse Resp BP Pulse Ox O2 Del Method 10/18/23 07:53 36.9 C 97 H 17 119/71 97 Nasal Cannula 10/18/23 03:49 37 C 99 H 18 116/73 97 Room Air 10/18/23 03:48 99 H 10/18/23 03:48 Nasal Cannula 10/18/23 03:00 95 H 22 112/62 98 Nasal Cannula 10/18/23 01:25 95 Nasal Cannula 10/18/23 01:20 88 L Nasal Cannula 10/18/23 01:00 99 H 22 138/60 99 Nasal Cannula 10/18/23 00:43 94 H 10/17/23 23:01 96 Nasal Cannula 10/17/23 23:00 80 L Room Air 10/17/23 22:40 92 H 21 147/66 H 96 Room Air O2 Flow Rate 10/18/23 07:53 3 10/18/23 03:49 10/18/23 03:48 10/18/23 03:48 4 10/18/23 03:00 4 10/18/23 01:25 5 10/18/23 01:20 3 10/18/23 01:00 3 10/18/23 00:43 10/17/23 23:01 3 10/17/23 23:00 10/17/23 22:40 Laboratory Results 10/18/23 10/18/23 10/18/23 Range/Units 08:18 05:35 02:08 WBC 38.86 H* (4.8-10.8) K/ul RBC 4.85 (4.20-5.40) M/uL Hgb 13.8 (12.0-16.0) g/dl Hct 40.6 (37.0-47.0) % MCV 83.7 (80.0-100.0) fL MCH 28.5 (25.0-34.0) pg MCHC 34.0 (32.0-36.0) g/dL RDW Std Deviation 42.1 (36.4-46.3) fL RDW Coeff of Estrella 13.7 (11.5-14.5) % Plt Count 354 (130-400) K/uL MPV 9.0 L (9.4-12.4) fL Immature Gran % (Auto) 1.0 % Neut % (Auto) 91.6 % Lymph % (Auto) 2.4 % Coleman % (Auto) 5.0 % Eos % (Auto) 0.0 % Baso % (Auto) 0.0 % Neut # (Auto) 35.59 H (1.40-6.50) K/uL Lymph # (Auto) 0.93 L (1.20-3.40) K/uL Coleman # (Auto) 1.94 H (0.11-0.59) K/uL Eos # (Auto) 0.00 (0.00-0.50) K/uL Baso # (Auto) 0.01 (0.00-0.20) K/uL Immature Gran # (Auto) 0.39 H (0.01-0.20) K/uL RBC Morphology PT (9.0-12.0) Seconds INR (0.9-1.1) Sodium 138 (136-145) mmol/L Potassium 3.8 (3.5-5.1) mmol/L Chloride 109 H (98-107) mmol/L Carbon Dioxide 22 (21-32) mmol/L Anion Gap 7 (3-11) BUN 21 (6-23) mg/dl Creatinine 0.77 (0.6-1.2) mg/dl Est Cr Clr Drug Dosing 49.6 ml/min Est GFR ( Amer) 82.8 ml/min Est GFR (Non-Af Amer) 71.4 ml/min BUN/Creatinine Ratio 27.3 H (10-20) Glucose 183 H (70-99(Fasting)) mg/dl Estimat Average Glucose 120 mg/dl Hemoglobin A1c 5.8 H (4.5-5.6) % Lactate 2.0 2.6 H* (0.4-2.0) mmol/L Calcium 7.6 L (8.6-10.3) mg/dl Magnesium 1.9 (1.7-2.4) mg/dl Total Bilirubin (0.2-1.0) mg/dl AST (13-39) U/L ALT (7-52) U/L Alkaline Phosphatase (34-104) U/L Troponin I High Sens 49.9 H D 39.9 H D (0-14) pg/ml Total Protein (6.0-8.3) gm/dl Albumin (3.4-5.0) gm/dl Globulin (2.5-4.0) gm/dl Albumin/Globulin Ratio (0.9-2) Lipase (11-82) U/L Procalcitonin (0-0.5) ng/ml Urine Color Urine Appearance (Clear) Urine pH (4.5-7.5) Ur Specific [place] (1.000-1.030) Urine Protein (Negative) Urine Glucose (UA) (Negative) Urine Ketones (Negative) Urine Blood (Negative) Urine Nitrite (Negative) Urine Bilirubin (Negative) Urine Urobilinogen (Negative) Ur Leukocyte Esterase (Negative) Urine WBC (Auto) (0-5) /hpf Urine RBC (Auto) (0-2) /hpf U Hyaline Cast (Auto) (0-2) /lpf U Epithel Cells (Auto) (0-2) /hpf Urine Bacteria (Auto) (None Seen) Adenovirus (PCR) (NotDetected) B. pertussis DNA (PCR) (NotDetected) B.parapertussis DNA PCR (NotDetected) C. pneumoniae DNA (PCR) (NotDetected) Coronavirus OC43 (PCR) (NotDetected) Coronavirus HKU1 (PCR) (NotDetected) Coronavirus 229E (PCR) (NotDetected) SARS-CoV-2 (PCR) (NotDetected) Coronavirus NL63 (PCR) (NotDetected) Human Metapneumovir PCR (NotDetected) Influenza Type A (PCR) (NotDetected) Influenza Type B (PCR) (NotDetected) M. pneumoniae (PCR) (NotDetected) Parainfluenza 1 (PCR) (NotDetected) Parainfluenza 2 (PCR) (NotDetected) Parainfluenza 3 (PCR) (NotDetected) Parainfluenza 4 (PCR) (NotDetected) RSV (PCR) (NotDetected) Entero/Rhino (PCR) (NotDetected) Blood Type Antibody Screen 10/18/23 10/18/23 10/17/23 Range/Units 00:40 00:24 22:54 WBC (4.8-10.8) K/ul RBC (4.20-5.40) M/uL Hgb (12.0-16.0) g/dl Hct (37.0-47.0) % MCV (80.0-100.0) fL MCH (25.0-34.0) pg MCHC (32.0-36.0) g/dL RDW Std Deviation (36.4-46.3) fL RDW Coeff of [place]rella (11.5-14.5) % Plt Count (130-400) K/uL MPV (9.4-12.4) fL Immature Gran % (Auto) % Neut % (Auto) % Lymph % (Auto) % Coleman % (Auto) % Eos % (Auto) % Baso % (Auto) % Neut # (Auto) (1.40-6.50) K/uL Lymph # (Auto) (1.20-3.40) K/uL Coleman # (Auto) (0.11-0.59) K/uL Eos # (Auto) (0.00-0.50) K/uL Baso # (Auto) (0.00-0.20) K/uL Immature Gran # (Auto) (0.01-0.20) K/uL RBC Morphology PT (9.0-12.0) Seconds INR (0.9-1.1) Sodium (136-145) mmol/L Potassium (3.5-5.1) mmol/L Chloride (98-107) mmol/L Carbon Dioxide (21-32) mmol/L Anion Gap (3-11) BUN (6-23) mg/dl Creatinine (0.6-1.2) mg/dl Est Cr Clr Drug Dosing ml/min Est GFR ( Amer) ml/min Est GFR (Non-Af Amer) ml/min BUN/Creatinine Ratio (10-20) Glucose (70-99(Fasting)) mg/dl Estimat Average Glucose mg/dl Hemoglobin A1c (4.5-5.6) % Lactate 2.9 H* 3.7 H* (0.4-2.0) mmol/L Calcium (8.6-10.3) mg/dl Magnesium (1.7-2.4) mg/dl Total Bilirubin (0.2-1.0) mg/dl AST (13-39) U/L ALT (7-52) U/L Alkaline Phosphatase (34-104) U/L Troponin I High Sens (0-14) pg/ml Total Protein (6.0-8.3) gm/dl Albumin (3.4-5.0) gm/dl Globulin (2.5-4.0) gm/dl Albumin/Globulin Ratio (0.9-2) Lipase (11-82) U/L Procalcitonin (0-0.5) ng/ml Urine Color Urine Appearance (Clear) Urine pH (4.5-7.5) Ur Specific [place] (1.000-1.030) Urine Protein (Negative) Urine Glucose (UA) (Negative) Urine Ketones (Negative) Urine Blood (Negative) Urine Nitrite (Negative) Urine Bilirubin (Negative) Urine Urobilinogen (Negative) Ur Leukocyte Esterase (Negative) Urine WBC (Auto) (0-5) /hpf Urine RBC (Auto) (0-2) /hpf U Hyaline Cast (Auto) (0-2) /lpf U Epithel Cells (Auto) (0-2) /hpf Urine Bacteria (Auto) (None Seen) Adenovirus (PCR) (NotDetected) B. pertussis DNA (PCR) (NotDetected) B.parapertussis DNA PCR (NotDetected) C. pneumoniae DNA (PCR) (NotDetected) Coronavirus OC43 (PCR) (NotDetected) Coronavirus HKU1 (PCR) (NotDetected) Coronavirus 229E (PCR) (NotDetected) SARS-CoV-2 (PCR) (NotDetected) Coronavirus NL63 (PCR) (NotDetected) Human Metapneumovir PCR (NotDetected) Influenza Type A (PCR) (NotDetected) Influenza Type B (PCR) (NotDetected) M. pneumoniae (PCR) (NotDetected) Parainfluenza 1 (PCR) (NotDetected) Parainfluenza 2 (PCR) (NotDetected) Parainfluenza 3 (PCR) (NotDetected) Parainfluenza 4 (PCR) (NotDetected) RSV (PCR) (NotDetected) Entero/Rhino (PCR) (NotDetected) Blood Type O Positive Antibody Screen NEGATIVE 10/17/23 10/17/23 10/17/23 Range/Units 21:58 20:32 20:30 WBC 43.06 H* (4.8-10.8) K/ul RBC 5.36 (4.20-5.40) M/uL Hgb 15.3 (12.0-16.0) g/dl Hct 45.3 (37.0-47.0) % MCV 84.5 (80.0-100.0) fL MCH 28.5 (25.0-34.0) pg MCHC 33.8 (32.0-36.0) g/dL RDW Std Deviation 41.7 (36.4-46.3) fL RDW Coeff of [place]rella 13.6 (11.5-14.5) % Plt Count 403 H (130-400) K/uL MPV 9.4 (9.4-12.4) fL Immature Gran % (Auto) 1.6 % Neut % (Auto) 90.7 % Lymph % (Auto) 2.5 % Coleman % (Auto) 4.9 % Eos % (Auto) 0.0 % Baso % (Auto) 0.3 % Neut # (Auto) 39.04 H (1.40-6.50) K/uL Lymph # (Auto) 1.09 L (1.20-3.40) K/uL Coleman # (Auto) 2.11 H (0.11-0.59) K/uL Eos # (Auto) 0.00 (0.00-0.50) K/uL Baso # (Auto) 0.14 (0.00-0.20) K/uL Immature Gran # (Auto) 0.68 H (0.01-0.20) K/uL RBC Morphology Unremarkable PT 11.4 (9.0-12.0) Seconds INR 1.1 (0.9-1.1) Sodium 137 (136-145) mmol/L Potassium 4.2 (3.5-5.1) mmol/L Chloride 101 (98-107) mmol/L Carbon Dioxide 21 (21-32) mmol/L Anion Gap 15 H (3-11) BUN 24 H (6-23) mg/dl Creatinine 0.98 (0.6-1.2) mg/dl Est Cr Clr Drug Dosing 38.3 ml/min Est GFR ( Amer) 61.8 ml/min Est GFR (Non-Af Amer) 53.3 ml/min BUN/Creatinine Ratio 24.5 H (10-20) Glucose 216 H (70-99(Fasting)) mg/dl Estimat Average Glucose mg/dl Hemoglobin A1c (4.5-5.6) % Lactate (0.4-2.0) mmol/L Calcium 9.2 (8.6-10.3) mg/dl Magnesium (1.7-2.4) mg/dl Total Bilirubin 1.0 (0.2-1.0) mg/dl AST 17 (13-39) U/L ALT 15 (7-52) U/L Alkaline Phosphatase 141 H (34-104) U/L Troponin I High Sens 6.8 (0-14) pg/ml Total Protein 6.8 (6.0-8.3) gm/dl Albumin 4.1 (3.4-5.0) gm/dl Globulin 2.7 (2.5-4.0) gm/dl Albumin/Globulin Ratio 1.5 (0.9-2) Lipase 24 (11-82) U/L Procalcitonin 2.25 H (0-0.5) ng/ml Urine Color Dark Yellow Urine Appearance Clear (Clear) Urine pH 6.5 (4.5-7.5) Ur Specific [place] 1.039 H (1.000-1.030) Urine Protein 1+ H (Negative) Urine Glucose (UA) Negative (Negative) Urine Ketones 1+ H (Negative) Urine Blood Negative (Negative) Urine Nitrite Negative (Negative) Urine Bilirubin Negative (Negative) Urine Urobilinogen Negative (Negative) Ur Leukocyte Esterase Trace H (Negative) Urine WBC (Auto) 0-5 (0-5) /hpf Urine RBC (Auto) 0-2 (0-2) /hpf U Hyaline Cast (Auto) 6-10 H (0-2) /lpf U Epithel Cells (Auto) 0-2 (0-2) /hpf Urine Bacteria (Auto) None Seen (None Seen) Adenovirus (PCR) Not Detected (NotDetected) B. pertussis DNA (PCR) Not Detected (NotDetected) B.parapertussis DNA PCR Not Detected (NotDetected) C. pneumoniae DNA (PCR) Not Detected (NotDetected) Coronavirus OC43 (PCR) Not Detected (NotDetected) Coronavirus HKU1 (PCR) Not Detected (NotDetected) Coronavirus 229E (PCR) Not Detected (NotDetected) SARS-CoV-2 (PCR) Not Detected (NotDetected) Coronavirus NL63 (PCR) Not Detected (NotDetected) Human Metapneumovir PCR Not Detected (NotDetected) Influenza Type A (PCR) Not Detected (NotDetected) Influenza Type B (PCR) Not Detected (NotDetected) M. pneumoniae (PCR) Not Detected (NotDetected) Parainfluenza 1 (PCR) Not Detected (NotDetected) Parainfluenza 2 (PCR) Not Detected (NotDetected) Parainfluenza 3 (PCR) Not Detected (NotDetected) Parainfluenza 4 (PCR) Not Detected (NotDetected) RSV (PCR) Not Detected (NotDetected) Entero/Rhino (PCR) Not Detected (NotDetected) Blood Type Antibody Screen PG Care Time/CCT Total # of Minutes Spent Total Time Spent with Patient: Total time spent is greater than 50% in coordination of care (as documented) at patient's floor/unit and/or counseling patient: Coding Level of Care Code 89618 INT INP/OBS CARE 2/55MIN Diagnoses Colitis K52.9
--- NOTE | 2023-10-18 13:00 | XRay Report ---
XR KUB/Abdomen 1 view CLINICAL HISTORY: assess stool pattern, rule out dilation TECHNIQUE: 1 view of the abdomen was obtained. Comparison: None available at the time of this dictation. FINDINGS: Lung bases are unremarkable. Degenerative changes are seen in the visualized skeleton. The bowel gas pattern is nonobstructive. A moderate amount of stool is noted within the large bowel. IMPRESSION: Nonobstructive bowel gas pattern. ACT 112: Negative or not required by law. Electronically signed by: Julian Culp M.D. 10/18/2023 12:59 PM
--- NOTE | 2023-10-18 13:23 | Electrocardiogram Report ---
Test Reason : Blood Pressure : */* mmHG Vent. Rate : 105 BPM Atrial Rate : 105 BPM P-R Int : 136 ms QRS Dur : 78 ms QT Int : 342 ms P-R-T Axes : 67 -36 -3 degrees QTcB Int : 452 ms Sinus tachycardia Left axis deviation Poor R wave progression, consider anterior NM vs. lead placement vs. LVH Abnormal ECG When compared with ECG of 13-Oct-2023 13:01, QRS axis Shifted left ST now depressed in Inferior leads ST now depressed in Lateral leads Nonspecific T wave abnormality now evident in Inferior leads Confirmed by Favian Vogel ([id number]) on 10/18/2023 1:23:23 PM Referred By: REFERRED SELF Confirmed By: Favian Vogel
[2023-10-18] MEDS: CEFEPIME 2,000 MG in SYRINGE 0 ML IV SCH (15:55)
[2023-10-18] MEDS: traZODone HCL 50 MG TAB PO SCH (20:28)
[2023-10-18] MEDS: MONTELUKAST SODIUM 10 MG TABLET PO SCH (20:28)
[2023-10-19 07:40] LABS: Hematocrit (blood only) 34.8 % (37.0-47.0); Hemoglobin 11.4 g/dl (12.0-16.0); Mean Corpuscular Hemoglobin 28.2 pg (25.0-34.0); Mean Corpuscular Hgb Conc 32.8 g/dL (32.0-36.0); Mean Corpuscular Volume 86.1 fL (80.0-100.0); Mean Platelet Volume 9.3 fL (9.4-12.4); Platelet Count 257 K/uL (130-400); RDW Coefficient of Variation 14.3 % (11.5-14.5); RDW Standard Deviation 45.1 fL (36.4-46.3); Red Blood Count 4.04 M/uL (4.20-5.40); White Blood Count 29.48 K/ul (4.8-10.8)
[2023-10-19 08:01] LABS: Basophils # (auto) 0.06 K/uL (0.00-0.20); Basophils % (auto) 0.2 %; Immature Granulocytes # (auto) 0.78 K/uL (0.01-0.20); Immature Granulocytes % (auto) 2.6 %; Lymphocytes # (auto) 1.55 K/uL (1.20-3.40); Lymphocytes % (auto) 5.3 %; Monocytes # (auto) 1.79 K/uL (0.11-0.59); Monocytes % (auto) 6.1 %; Neutrophils % (auto) 85.8 %
[2023-10-19] MEDS: PANTOprazole 40 MG in SYRINGE 0 ML IV SCH (08:04)
[2023-10-19 08:13] LABS: Potassium 3.4 mmol/L (3.5-5.1)
[2023-10-19 08:19] LABS: BUN Creatinine Ratio 31.1 (10-20); Creatinine Clr Calc Pharmacy 62.7 ml/min; Est GFR (African American) 97.2 ml/min; Est GFR (Non-African American) 83.8 ml/min
[2023-10-19 08:33] LABS: Troponin I High Sensitivity 56.6 pg/ml (0-14)
--- NOTE | 2023-10-19 09:19 | Hospitalist Progress Note ---
Date of Service October 19, 2023 Assessment & Plan (1) Abdominal pain: Plan: 83-year-old female with past med history significant for primary hyperparathyroidism, hyperlipidemia, prediabetes, mild persistent asthma, aortic ectasia, hypertension, mild mitral regurgitation, diastolic dysfunction, irritable bowel syndrome, GERD with esophagitis, incomplete bladder emptying, hereditary and idiopathic peripheral neuropathy, mild dementia, Sjogren's syndrome, history of B-cell lymphoma presents with abdominal pain and nausea and vomiting. Patient also had several episodes nausea and vomiting. She says vomit is dark color. She also reported black stools. . Denies any chest pain or shortness of breath. No cough. No headache. Abdominal pain Possible Ischemic Colitis CT scan suspicious for nonspecific colitis and also esophagitis Initial lactic acid was 3.7 trended down to 2.9 and 2.6 Elevated procalcitonin BioFire negative and UA negative Blood cultureno growth till date Continue on IV cefepime and Flagyl Continue clear liquid diet Advance gradually as tolerated Pain control DC IV fluids Possible GI bleed Possible acute blood loss anemia, possible hemodilution Having dark vomitus and black stools Hemoglobin down trended from 15.3-11.4. GI consulted; no plans for egd inpatient Currently on Protonix twice daily iv X 48 hours and then trasnsition to PO Mild persistent asthma Continue home inhalers Requiring oxygen CXR- no consolidation suggestive of pneumonia Hypertension hold amlodipine and Hold lisinopril for now Will monitor Hyperlipidemia Holding statin restart when able to Elevated troponin High sensitivity troponin -6.8 on admission; gradually up trended to 56; EKG shows sinus tachycardia; non-specific ST wave changes Echocardiogram shows EF of 60 to 65 %; grade I diastolic dysfunction Patient allergic to aspirin. Will start on rosuvastatin 20 mg. Obtain lipid panel History of diastolic dysfunction Monitor for volume overload History of cutaneous B-cell lymphoma Following with hematology and oncology Mild dementia Monitor for delirium GERD Protonix Bid History of incomplete bladder emptying Monitor for urinary retention Chronic leukocytosis WBC elevated at 43 on admission Usually around 14K improving On antibiotics No diarrhea, will obtain c.diff if there is diarhhea. History of hyperparathyroidism Calcium levels wnl prediabetes 5.8% of HbA1c DVT prophylaxis SCDs for now Disposition Telemetry Full code Discussed Plan of care with patient's son at bedside on 10/18/2023. Answered questions/queries. Time spent evaluating patient, direct bedside care, chart review, placing orders, interpretation of diagnostic studies, discussion with consultants, patient, and family members, as well as other required patient management activities is 50 minutes Please note the above document was generated using voice recognition software. It may contain grammatical, syntax or spelling errors. Any formal questions or concerns about the content, text or information contained within the body of this dictation should be directly addressed to the provider for clarification Admission and Anticipated Discharge Date Admission Date: October 18, 2023 Subjective Patient seen and examined at bedside. She is comfortable; not in any distress Did not requiring any IV pain medication overnight Review of Systems Review of Systems: All systems reviewed & are unremarkable except as noted in Subjective Physical Exam Physical Exam: General- Not in distress. Head- atraumatic Eyes- PERRL. ENT- oropharynx clear Neck- supple, no JVD. Lungs- clear to auscultation no wheezing or crackles Heart- regular rate and rhythm; no murmur, no gallop. Abdomen-Tenderness in left lower quadrant. Extremities- no pretibial edema, no erythema seen Neuro- alert, oriented PERRL,no facial palsy; no dysarthria; moves extremities. Skin- warm & dry Results & Data Results & Data Vital Signs (Past 12 Hours) Vital Signs Temp Pulse Pulse Resp BP Pulse Ox Pulse Ox 10/19/23 07:01 36.9 C 83 18 117/67 96 10/19/23 03:48 96 10/19/23 03:02 36.8 C 97 H 17 133/69 96 10/18/23 23:14 37.0 C 88 17 113/55 L 96 10/18/23 22:49 87 O2 Del Method O2 Del Method O2 Flow Rate O2 Flow Rate 10/19/23 07:01 Nasal Cannula 1 10/19/23 03:48 Nasal Cannula 2 10/19/23 03:02 Nasal Cannula 2 10/18/23 23:14 Nasal Cannula 2 10/18/23 22:49
--- NOTE | 2023-10-19 09:28 | Surgery Progress Note ---
Date of Service October 19, 2023 Assessment & Plan (1) Colitis: Plan: Her white count is decreasing and her heart rates improved Her abdominal exam is also improved today Continue n.p.o. and nonoperative treatment of her colitis Surgery will continue to follow (2) Leukocytosis: Admission and Anticipated Discharge Date Admission Date: October 18, 2023 Subjective Patient seen and examined. States her abdominal pain is improved since yesterday. Afebrile. Hemodynamically stable. Review of Systems Constitutional: no fever and no chills Respiratory: no cough and no dyspnea Cardiovascular: no chest pain and no dyspnea on exertion Gastrointestinal: + abdominal pain and + diarrhea/loose st ools; no nausea and no vomiting Genitourinary: no dysuria and no urinary urgency Integumentary: no acne and no lesions Psychiatric: + confusion; no behavioral changes and n o depression Hematologic / Lymphatic: no easy bleeding and no easy bruising Physical Exam Constitutional: WD/WN, vitals as above Respiratory: normal respiratory effort, lungs clear to auscultation Cardiovascular: RRR, no murmur, no edema Gastrointestinal (Abdomen): Inspection/Auscultation: abdomen normal to inspection; abdomen not distended Percussion/Palpation: + abdomen tender (Generalized, improved from yesterday) and abdomen soft; no guarding Musculoskeletal: no cyanosis or clubbing, extremities motor strength 5/5 Skin: no rashes, warm and dry Psychiatric: A+Ox3, euthymic affect Results & Data Vital Signs (Past 12 Hours) Vital Signs Temp Pulse Pulse Resp BP Pulse Ox Pulse Ox 10/19/23 07:01 36.9 C 83 18 117/67 96 10/19/23 03:48 96 10/19/23 03:02 36.8 C 97 H 17 133/69 96 10/18/23 23:14 37.0 C 88 17 113/55 L 96 10/18/23 22:49 87 O2 Del Method O2 Del Method O2 Flow Rate O2 Flow Rate 10/19/23 07:01 Nasal Cannula 1 10/19/23 03:48 Nasal Cannula 2 10/19/23 03:02 Nasal Cannula 2 10/18/23 23:14 Nasal Cannula 2 10/18/23 22:49 PG Care Time/CCT Total # of Minutes Spent Total Time Spent with Patient: Total time spent is greater than 50% in coordination of care (as documented) at patient's floor/unit and/or counseling patient: Coding Level of Care Code 03508 SUB INP/OBS CARE 03/02MIN Diagnoses Colitis K52.9 Leukocytosis D72.829
--- NOTE | 2023-10-19 10:23 | Gastroenterology Progress Note ---
Date of Service October 19, 2023 Assessment & Plan (1) Colitis: Plan: 83 year old female admitted with lower abd pain, nausea/vomiting and dark colored stool about 2 days ago. She has elevated WBC this AM at 38, CT imaging showing colitis and esophagitis. Her lactate has improved. She was evaluated by general surgery who initiated ABX therapy, IV fluids and serial abdominal examination. This AM she is tender but no rebound or guarding. KUB without dilation Tolerating oral intake Check stool studies Continue ABX as ordered IV PPI BID for 48 hours then PO PPI thereafter Trend HGB Monitor and document GI output Transfuse PRN per primary team Recommend OP EGD with her [facility] team given imaging showing esophagitis Thank you for allowing us to participate in the care of this patient. Please call with any acute changes, questions or concerns. Please see addendum below with additional recommendation from my supervising physician. I spent a total of 40 minutes on the date of service in review of patient's record, and previously obtained information in person and appropriate medical visit, discussion and education of plan, with patient and/or caregiver, placing orders for tests/referral/procedures as medically necessary and documentation of pertinent clinical information in patient's medical records for their visit today. Admission and Anticipated Discharge Date Admission Date: October 18, 2023 Supervising Physician Co-Signing Physician Notes Patient seen and examined. Case discussed with [place]. Patient much improved today after a couple of bowel movements. WBC improving. Complete antibiotic regimen and if diarrhea - send stool for study. Continue to trend WBC even as OP. Elective OP evaluation for possible colonoscopy after completing antibiotic treatment. IP GI Service will sign off. Subjective Pt was seen and evaluated, chart reviewed. Notes abd pain is slightly improved but persistent. Moved bowels last evening. Brown, semi-formed. No black or bloody stools. WBC 43 --> 38 --> 29 Review of Systems Review of Systems: All other findings negative except as noted in HPI. Physical Exam Constitutional: WD/WN, vitals as above Respiratory: normal respiratory effort, lungs clear to auscultation Cardiovascular: Rate/Rhythm: regular rate and regular rhythm Gastrointestinal (Abdomen): Inspection/Auscultation: normal bowel sounds Percussion/Palpation: + abdomen tender (worse in LLQ) and abdomen soft; no guarding and abdomen not rigid Skin: no rashes, warm and dry Results & Data Results & Data Vital Signs (Past 12 Hours) Vital Signs Temp Pulse Pulse Resp BP Pulse Ox Pulse Ox 10/19/23 07:01 36.9 C 83 18 117/67 96 10/19/23 03:48 96 10/19/23 03:02 36.8 C 97 H 17 133/69 96 10/18/23 23:14 37.0 C 88 17 113/55 L 96 10/18/23 22:49 87 O2 Del Method O2 Del Method O2 Flow Rate O2 Flow Rate 10/19/23 07:01 Nasal Cannula 1 10/19/23 03:48 Nasal Cannula 2 10/19/23 03:02 Nasal Cannula 2 10/18/23 23:14 Nasal Cannula 2 10/18/23 22:49 Laboratory Results 10/19/23 Range/Units 06:27 WBC 29.48 H (4.8-10.8) K/ul RBC 4.04 L (4.20-5.40) M/uL Hgb 11.4 L (12.0-16.0) g/dl Hct 34.8 L (37.0-47.0) % MCV 86.1 (80.0-100.0) fL MCH 28.2 (25.0-34.0) pg MCHC 32.8 (32.0-36.0) g/dL RDW Std Deviation 45.1 (36.4-46.3) fL RDW Coeff of Estrella 14.3 (11.5-14.5) % Plt Count 257 (130-400) K/uL MPV 9.3 L (9.4-12.4) fL Immature Gran % (Auto) 2.6 % Neut % (Auto) 85.8 % Lymph % (Auto) 5.3 % [place] % (Auto) 6.1 % Eos % (Auto) 0.0 % Baso % (Auto) 0.2 % Neut # (Auto) 25.30 H (1.40-6.50) K/uL Lymph # (Auto) 1.55 (1.20-3.40) K/uL [place] # (Auto) 1.79 H (0.11-0.59) K/uL Eos # (Auto) 0.00 (0.00-0.50) K/uL Baso # (Auto) 0.06 (0.00-0.20) K/uL Immature Gran # (Auto) 0.78 H (0.01-0.20) K/uL Sodium 137 (136-145) mmol/L Potassium 3.4 L (3.5-5.1) mmol/L Chloride 110 H (98-107) mmol/L Carbon Dioxide 20 L (21-32) mmol/L Anion Gap 7 (3-11) BUN 19 (6-23) mg/dl Creatinine 0.61 (0.6-1.2) mg/dl Est Cr Clr Drug Dosing 62.7 ml/min Est GFR ( Amer) 97.2 ml/min Est GFR (Non-Af Amer) 83.8 ml/min BUN/Creatinine Ratio 31.1 H (10-20) Glucose 126 H (70-99(Fasting)) mg/dl Calcium 8.0 L (8.6-10.3) mg/dl Troponin I High Sens 56.6 H* (0-14) pg/ml PG Care Time/CCT Total # of Minutes Spent Total Time Spent with Patient: Total time spent is greater than 50% in coordination of care (as documented) at patient's floor/unit and/or counseling patient: Coding Level of Care Code 93218 SUB INP/OBS CARE 2/35MIN Diagnoses Colitis K52.9
[2023-10-19] MEDS: ROSUVASTATIN CALCIUM 20 MG TAB PO SCH (10:48)
[2023-10-20 09:13] LABS: Basophils # (auto) 0.05 K/uL (0.00-0.20); Basophils % (auto) 0.2 %; Eosinophils # (auto) 0.01 K/uL (0.00-0.50); Hematocrit (blood only) 32.8 % (37.0-47.0); Hemoglobin 11.3 g/dl (12.0-16.0); Immature Granulocytes # (auto) 0.38 K/uL (0.01-0.20); Immature Granulocytes % (auto) 1.8 %; Lymphocytes # (auto) 1.02 K/uL (1.20-3.40); Lymphocytes % (auto) 4.9 %; Mean Corpuscular Hemoglobin 28.3 pg (25.0-34.0); Mean Corpuscular Hgb Conc 34.5 g/dL (32.0-36.0); Mean Platelet Volume 9.3 fL (9.4-12.4); Monocytes # (auto) 1.19 K/uL (0.11-0.59); Monocytes % (auto) 5.7 %; Neutrophils # (auto) 18.36 K/uL (1.40-6.50); Neutrophils % (auto) 87.4 %; Platelet Count 232 K/uL (130-400); RDW Coefficient of Variation 13.4 % (11.5-14.5); RDW Standard Deviation 40.4 fL (36.4-46.3); White Blood Count 21.01 K/ul (4.8-10.8)
--- NOTE | 2023-10-20 09:13 | Hospitalist Progress Note ---
Date of Service October 20, 2023 Assessment & Plan (1) Abdominal pain: Plan: 83-year-old female with past med history significant for primary hyperparathyroidism, hyperlipidemia, prediabetes, mild persistent asthma, aortic ectasia, hypertension, mild mitral regurgitation, diastolic dysfunction, irritable bowel syndrome, GERD with esophagitis, incomplete bladder emptying, hereditary and idiopathic peripheral neuropathy, mild dementia, Sjogren's syndrome, history of B-cell lymphoma presents with abdominal pain and nausea and vomiting. Patient also had several episodes nausea and vomiting. She says vomit is dark color. She also reported black stools. . Denies any chest pain or shortness of breath. No cough. No headache. Abdominal pain Possible Ischemic Colitis CT scan suspicious for nonspecific colitis and also esophagitis Initial lactic acid was 3.7 trended down to 2.9 and 2.6 Elevated procalcitonin BioFire negative and UA negative Blood cultureno growth till date Continue on IV cefepime and Flagyl Continue clear liquid diet Advance gradually as tolerated Pain control DC IV fluids Possible GI bleed Possible acute blood loss anemia, possible hemodilution Having dark vomitus and black stools Hemoglobin down trended from 15.3 to 11.3. GI consulted; no plans for egd inpatient Currently on Protonix twice daily iv X 48 hours and then trasnsition to PO Mild persistent asthma Continue home inhalers Requiring oxygen CXR- no consolidation suggestive of pneumonia Hypertension hold amlodipine and Hold lisinopril for now Will monitor Hyperlipidemia Holding statin restart when able to Elevated troponin High sensitivity troponin -6.8 on admission; gradually up trended to 56 and trended EKG shows sinus tachycardia; non-specific ST wave changes Echocardiogram shows EF of 60 to 65 %; grade I diastolic dysfunction Patient allergic to aspirin. Will start on rosuvastatin 20 mg. History of diastolic dysfunction Monitor for volume overload History of cutaneous B-cell lymphoma Following with hematology and oncology Mild dementia Monitor for delirium GERD Protonix Bid History of incomplete bladder emptying Monitor for urinary retention Chronic leukocytosis WBC elevated at 43 on admission Usually around 14K improving On antibiotics No diarrhea, will obtain c.diff if there is diarhhea. History of hyperparathyroidism Calcium levels wnl prediabetes 5.8% of HbA1c DVT prophylaxis SCDs for now Disposition Telemetry Full code Discussed Plan of care with patient's son at bedside on 10/18/2023. Answered questions/queries. Time spent evaluating patient, direct bedside care, chart review, placing orders, interpretation of diagnostic studies, discussion with consultants, patient, and family members, as well as other required patient management celestino hernandez is 50 minutes Please note the above document was generated using voice recognition software. It may contain grammatical, syntax or spelling errors. Any formal questions or concerns about the content, text or information contained within the body of this dictation should be directly addressed to the provider for clarification Admission and Anticipated Discharge Date Admission Date: October 18, 2023 Subjective Patient seen and examined at bedside. She is comfortable; not in distress. Reports the abdominal pain has slightly improved No significant events overnight Review of Systems Review of Systems: All systems reviewed & are unremarkable except as noted in Subjective Physical Exam Physical Exam: General- Not in distress. Head- atraumatic Eyes- PERRL. ENT- oropharynx clear Neck- supple, no JVD. Lungs- clear to auscultation no wheezing or crackles Heart- regular rate and rhythm; no murmur, no gallop. Abdomen-Tenderness in left lower quadrant, slightly improved. Extremities- no pretibial edema, no erythema seen Neuro- alert, oriented PERRL,no facial palsy; no dysarthria; moves extremities. Skin- warm & dry Results & Data Results & Data Vital Signs (Past 12 Hours) Vital Signs Temp Pulse Pulse Resp BP Pulse Ox Pulse Ox 10/20/23 07:59 36.6 C 77 18 153/70 H 97 10/20/23 07:55 79 10/20/23 03:00 93 10/20/23 02:29 36.8 C 83 19 147/79 H 93 10/19/23 23:00 36.9 C 80 18 121/62 94 10/19/23 21:58 81 O2 Del Method O2 Del Method O2 Flow Rate 10/20/23 07:59 Nasal Cannula 2 10/20/23 07:55 10/20/23 03:00 Room Air 10/20/23 02:29 Room Air 10/19/23 23:00 Nasal Cannula 2 10/19/23 21:58
[2023-10-20 09:31] LABS: BUN Creatinine Ratio 21.2 (10-20); Calcium 8.1 mg/dl (8.6-10.3); Creatinine Clr Calc Pharmacy 73.3 ml/min; Est GFR (African American) 102.4 ml/min; Est GFR (Non-African American) 88.4 ml/min; Potassium 2.7 mmol/L (3.5-5.1)
--- NOTE | 2023-10-20 11:20 | Surgery Progress Note ---
Date of Service October 20, 2023 Assessment & Plan (1) Colitis: Plan: Her white count continues to decrease Her abdominal exam continues to improve I think trial clear liquids and advance as tolerated No plans for any surgical intervention Surgery will sign off at this time, please call with any questions or concerns (2) Leukocytosis: Admission and Anticipated Discharge Date Admission Date: October 18, 2023 Subjective Patient seen and examined. States her abdominal pain is much better. Afebrile. She is having bowel movements. Review of Systems Constitutional: no fever and no chills Respiratory: no cough and no dyspnea Cardiovascular: no chest pain and no dyspnea on exertion Gastrointestinal: + abdominal pain and + diarrhea/loose st ools; no nausea and no vomiting Genitourinary: no dysuria and no urinary urgency Integumentary: no acne and no lesions Psychiatric: + confusion; no behavioral changes and n o depression Hematologic / Lymphatic: no easy bleeding and no easy bruising Physical Exam Constitutional: WD/WN, vitals as above Respiratory: normal respiratory effort, lungs clear to auscultation Cardiovascular: RRR, no murmur, no edema Gastrointestinal (Abdomen): Inspection/Auscultation: abdomen normal to inspection; abdomen not distended Percussion/Palpation: + abdomen tender (Mild generalized) and abdomen soft; no guarding Musculoskeletal: no cyanosis or clubbing, extremities motor strength 5/5 Skin: no rashes, warm and dry Psychiatric: A+Ox3, euthymic affect Results & Data Vital Signs (Past 12 Hours) Vital Signs Temp Pulse Pulse Resp BP Pulse Ox Pulse Ox 10/20/23 07:59 36.6 C 77 18 153/70 H 97 10/20/23 07:55 79 10/20/23 03:00 93 10/20/23 02:29 36.8 C 83 19 147/79 H 93 O2 Del Method O2 Del Method O2 Flow Rate 10/20/23 07:59 Nasal Cannula 2 10/20/23 07:55 10/20/23 03:00 Room Air 10/20/23 02:29 Room Air PG Care Time/CCT Total # of Minutes Spent Total Time Spent with Patient: Total time spent is greater than 50% in coordination of care (as documented) at patient's floor/unit and/or counseling patient: Coding Level of Care Code 81506 SUB INP/OBS CARE 03/02MIN Diagnoses Colitis K52.9 Leukocytosis D72.829
[2023-10-20] MEDS: POTASSIUM CHLORIDE / WTR 10 MEQ/100 ML PLCT IV SCH (15:03)
[2023-10-20] MEDS: POTASSIUM CHLORIDE PWD 20 MEQ PACK PO SCH (19:40)
[2023-10-21] MEDS: PANTOprazole 40 MG TAB PO SCH (07:49)
[2023-10-21 08:05] LABS: Basophils # (auto) 0.04 K/uL (0.00-0.20); Basophils % (auto) 0.2 %; Eosinophils # (auto) 0.01 K/uL (0.00-0.50); Eosinophils % (auto) 0.1 %; Hematocrit (blood only) 34.8 % (37.0-47.0); Immature Granulocytes # (auto) 0.44 K/uL (0.01-0.20); Immature Granulocytes % (auto) 2.3 %; Lymphocytes # (auto) 1.43 K/uL (1.20-3.40); Lymphocytes % (auto) 7.6 %; Mean Corpuscular Hgb Conc 34.5 g/dL (32.0-36.0); Mean Corpuscular Volume 81.1 fL (80.0-100.0); Mean Platelet Volume 9.1 fL (9.4-12.4); Monocytes # (auto) 1.36 K/uL (0.11-0.59); Monocytes % (auto) 7.2 %; Neutrophils # (auto) 15.64 K/uL (1.40-6.50); Neutrophils % (auto) 82.6 %; Platelet Count 288 K/uL (130-400); RDW Coefficient of Variation 13.2 % (11.5-14.5); RDW Standard Deviation 38.8 fL (36.4-46.3); Red Blood Count 4.29 M/uL (4.20-5.40); White Blood Count 18.92 K/ul (4.8-10.8)
[2023-10-21 08:23] LABS: BUN Creatinine Ratio 14.6 (10-20); Calcium 8.3 mg/dl (8.6-10.3); Chol HDL Ratio 2.6 (0-5); Creatinine Clr Calc Pharmacy 79.6 ml/min; Est GFR (African American) 105.1 ml/min; Est GFR (Non-African American) 90.7 ml/min; Potassium 3.1 mmol/L (3.5-5.1)
--- NOTE | 2023-10-21 08:23 | Hospitalist Progress Note ---
Date of Service October 21, 2023 Assessment & Plan (1) Abdominal pain: Plan: 83-year-old female with past med history significant for primary hyperparathyroidism, hyperlipidemia, prediabetes, mild persistent asthma, aortic ectasia, hypertension, mild mitral regurgitation, diastolic dysfunction, irritable bowel syndrome, GERD with esophagitis, incomplete bladder emptying, hereditary and idiopathic peripheral neuropathy, mild dementia, Sjogren's syndrome, history of B-cell lymphoma presents with abdominal pain and nausea and vomiting. Patient also had several episodes nausea and vomiting. She says vomit is dark color. She also reported black stools. . Denies any chest pain or shortness of breath. No cough. No headache. Abdominal pain Possible Ischemic Colitis CT scan suspicious for nonspecific colitis and also esophagitis Initial lactic acid was 3.7 trended down to 2.9 and 2.6 BioFire negative and UA negative Blood cultureno growth till date Continue on ciprofloxacin and Flagyl. Plan to treat with antibiotics for total of 7 days Diet advanced to low fiber diet. Pain control Possible GI bleed Possible acute blood loss anemia, possible hemodilution Having dark vomitus and black stools Hemoglobin down trended from 15.3 to 11-12 GI consulted; no plans for egd inpatient was on iv Protonix, switched over to PO. Mild persistent asthma Continue home inhalers Requiring oxygen CXR- no consolidation suggestive of pneumonia Hypertension resume amlodpine , hold lisinopril Will monitor Hyperlipidemia on rosuvastatin, continue Elevated troponin High sensitivity troponin -6.8 on admission; gradually up trended to 56 and trended EKG shows sinus tachycardia; non-specific ST wave changes Echocardiogram shows EF of 60 to 65 %; grade I diastolic dysfunction Patient allergic to aspirin. Will start on rosuvastatin 20 mg. History of diastolic dysfunction Monitor for volume overload History of cutaneous B-cell lymphoma Following with hematology and oncology Mild dementia Monitor for delirium GERD conitnue Protonix History of incomplete bladder emptying Monitor for urinary retention Chronic leukocytosis WBC elevated at 43 on admission Usually around 14K improving On antibiotics If patient has diarrhea, will obtain c.diff History of hyperparathyroidism Calcium levels wnl prediabetes 5.8% of HbA1c DVT prophylaxis heparin Disposition Discussed with patient's son over the phone on 10/21/2023. Patient lives alone, concern about safely. Await PT/OT eval. wants [facility] to go [facility] if patient qualifes. Full code Time spent evaluating patient, direct bedside care, chart review, placing orders, interpretation of diagnostic studies, discussion with consultants, patient, and family members, as well as other required patient management activities is 50 minutes Please note the above document was generated using voice recognition software. It may contain grammatical, syntax or spelling errors. Any formal questions or concerns about the content, text or information contained within the body of this dictation should be directly addressed to the provider for clarification Admission and Anticipated Discharge Date Admission Date: October 18, 2023 Subjective Reports that abdominal pain has been improving Reports frequent episodes of diarrhea last night Vital signs are stable. Review of Systems Review of Systems: All systems reviewed & are unremarkable except as noted in Subjective Physical Exam Physical Exam: General- Not in distress. Head- atraumatic Eyes- PERRL. ENT- oropharynx clear Neck- supple, no JVD. Lungs- clear to auscultation no wheezing or crackles Heart- regular rate and rhythm; no murmur, no gallop. Abdomen-Tenderness in left lower quadrant, improved. Extremities- no pretibial edema, no erythema seen Neuro- alert, oriented PERRL,no facial palsy; no dysarthria; moves extremities. Skin- warm & dry Results & Data Results & Data Vital Signs (Past 12 Hours) Vital Signs Temp Pulse Pulse Resp BP Pulse Ox O2 Del Method 10/21/23 08:08 36.9 C 83 18 162/76 H 96 Room Air 10/21/23 07:21 77 10/21/23 02:47 36.9 C 76 18 150/73 H 97 Room Air 10/21/23 00:22 75 10/20/23 23:10 36.9 C 74 18 157/73 H 95 Room Air
[2023-10-21] MEDS: cefTRIAXone SODIUM 2,000 MG/50 ML BAG IV SCH (09:21)
[2023-10-21] MEDS: amLODIPine BESYLATE 5 MG TAB PO SCH (11:41)
[2023-10-21] MEDS: CIPROFLOXACIN 500 MG TAB PO SCH (11:41)
[2023-10-21] MEDS: POTASSIUM CHLORIDE / WTR 10 MEQ/100 ML PLCT IV SCH (14:09)
[2023-10-21] MEDS: metroNIDAZOLE 500 MG TAB PO SCH (14:11)
[2023-10-21] MEDS: HEPARIN SOD 5,000 UNIT/0.5 ML VIAL SQ SCH (14:14)
--- NOTE | 2023-10-22 08:12 | Hospitalist Progress Note ---
Date of Service October 22, 2023 Assessment & Plan (1) Abdominal pain: Plan: 83-year-old female with past med history significant for primary hyperparathyroidism, hyperlipidemia, prediabetes, mild persistent asthma, aortic ectasia, hypertension, mild mitral regurgitation, diastolic dysfunction, irritable bowel syndrome, GERD with esophagitis, incomplete bladder emptying, hereditary and idiopathic peripheral neuropathy, mild dementia, Sjogren's syndrome, history of B-cell lymphoma presents with abdominal pain and nausea and vomiting. Patient also had several episodes nausea and vomiting. She says vomit is dark color. She also reported black stools. . Denies any chest pain or shortness of breath. No cough. No headache. Abdominal pain Possible Ischemic Colitis CT scan suspicious for nonspecific colitis and also esophagitis Initial lactic acid was 3.7 trended down to 2.9 and 2.6 BioFire negative and UA negative Blood cultureno growth till date Continue on ciprofloxacin and Flagyl. Plan to treat with antibiotics for total of 7 days Diet advanced to low fiber diet. monitor for recurrent on abdominal pain. Pain control Possible GI bleed Possible acute blood loss anemia, possible hemodilution Having dark vomitus and black stools Hemoglobin down trended from 15.3 to 11-12 GI consulted; no plans for egd inpatient was on iv Protonix, switched over to PO. Mild persistent asthma Continue home inhalers Requiring oxygen CXR- no consolidation suggestive of pneumonia Hypertension resume amlodpine , hold lisinopril Will monitor Hyperlipidemia on liptor, continue Elevated troponin High sensitivity troponin -6.8 on admission; gradually up trended to 56 and trended EKG shows sinus tachycardia; non-specific ST wave changes Echocardiogram shows EF of 60 to 65 %; grade I diastolic dysfunction Patient allergic to aspirin. on lipitor 10mg at home, continue History of diastolic dysfunction Monitor for volume overload History of cutaneous B-cell lymphoma Following with hematology and oncology Mild dementia Monitor for delirium GERD conitnue Protonix History of incomplete bladder emptying Monitor for urinary retention Chronic leukocytosis WBC elevated at 43 on admission Usually around 14K improving On antibiotics If patient has diarrhea, will obtain c.diff History of hyperparathyroidism Calcium levels wnl prediabetes 5.8% of HbA1c DVT prophylaxis heparin Disposition Discussed with patient's son over the phone on 10/21/2023. Patient lives alone, concern about safely. PT/OT recommends rehab. [facility] qual[facility]. CM on board Full code Please note the above document was generated using voice recognition software. It may contain grammatical, syntax or spelling errors. Any formal questions or concerns about the content, text or information contained within the body of this dictation should be directly addressed to the provider for clarification Admission and Anticipated Discharge Date Admission Date: October 18, 2023 Subjective Patient seen and examined at bedside. Comfortable; not in distress. Denies fever, chills, chest pain, shortness of breath, abdominal pain or urinary symptoms. No significant overnight events Review of Systems Review of Systems: All systems reviewed & are unremarkable except as noted in Subjective Physical Exam Physical Exam: General- Not in distress. Head- atraumatic Eyes- PERRL. ENT- oropharynx clear Neck- supple, no JVD. Lungs- clear to auscultation no wheezing or crackles Heart- regular rate and rhythm; no murmur, no gallop. Abdomen-soft, non-tender, BS present Extremities- no pretibial edema, no erythema seen Neuro- alert, oriented PERRL,no facial palsy; no dysarthria; moves extremities. Skin- warm & dry Results & Data Results & Data Vital Signs (Past 12 Hours) Vital Signs Temp Pulse Pulse Resp BP BP Pulse Ox 10/22/23 07:46 36.8 C 78 18 136/77 96 10/22/23 07:24 77 10/22/23 03:02 37 C 82 18 140/72 97 10/21/23 23:58 81 10/21/23 23:36 37.0 C 77 16 146/61 H 95 O2 Del Method 10/22/23 07:46 Room Air 10/22/23 07:24 10/22/23 03:02 Room Air 10/21/23 23:58 10/21/23 23:36 Room Air
[2023-10-22] MEDS: ATORVASTATIN 10 MG TAB PO SCH (08:53)
[2023-10-22 09:58] LABS: Basophils # (auto) 0.12 K/uL (0.00-0.20); Basophils % (auto) 0.5 %; Eosinophils # (auto) 0.02 K/uL (0.00-0.50); Eosinophils % (auto) 0.1 %; Hematocrit (blood only) 35.8 % (37.0-47.0); Hemoglobin 12.8 g/dl (12.0-16.0); Immature Granulocytes % (auto) 3.5 %; Lymphocytes # (auto) 2.37 K/uL (1.20-3.40); Lymphocytes % (auto) 10.3 %; Mean Corpuscular Hemoglobin 28.7 pg (25.0-34.0); Mean Corpuscular Hgb Conc 35.8 g/dL (32.0-36.0); Mean Corpuscular Volume 80.3 fL (80.0-100.0); Mean Platelet Volume 8.8 fL (9.4-12.4); Monocytes # (auto) 1.37 K/uL (0.11-0.59); Neutrophils # (auto) 18.25 K/uL (1.40-6.50); Neutrophils % (auto) 79.6 %; Platelet Count 315 K/uL (130-400); RDW Coefficient of Variation 13.5 % (11.5-14.5); RDW Standard Deviation 39.1 fL (36.4-46.3); Red Blood Count 4.46 M/uL (4.20-5.40); White Blood Count 22.93 K/ul (4.8-10.8)
[2023-10-22 10:19] LABS: Calcium 8.5 mg/dl (8.6-10.3); Creatinine Clr Calc Pharmacy 71.3 ml/min; Est GFR (African American) 101.1 ml/min; Est GFR (Non-African American) 87.3 ml/min
[2023-10-22] MEDS: ONDANSETRON INJ 2 MG/ML 2 ML VIAL IV PRN (11:46)
[2023-10-22] MEDS: CALCIUM CARBONATE 500 MG CHEWABLE TAB PO PRN (12:49)
[2023-10-23 07:22] LABS: Hematocrit (blood only) 35.1 % (37.0-47.0); Hemoglobin 11.8 g/dl (12.0-16.0); Mean Corpuscular Hemoglobin 28.1 pg (25.0-34.0); Mean Corpuscular Hgb Conc 33.6 g/dL (32.0-36.0); Mean Corpuscular Volume 83.6 fL (80.0-100.0); Mean Platelet Volume 8.9 fL (9.4-12.4); Platelet Count 256 K/uL (130-400); RDW Coefficient of Variation 13.6 % (11.5-14.5); White Blood Count 18.86 K/ul (4.8-10.8)
[2023-10-23 07:36] LABS: BUN Creatinine Ratio 13.1 (10-20); Calcium 8.5 mg/dl (8.6-10.3); Est GFR (African American) 97.2 ml/min; Est GFR (Non-African American) 83.8 ml/min; Potassium 3.6 mmol/L (3.5-5.1)
[2023-10-23 07:45] LABS: Basophils # (auto) 0.14 K/uL (0.00-0.20); Basophils % (auto) 0.7 %; Eosinophils # (auto) 0.08 K/uL (0.00-0.50); Eosinophils % (auto) 0.4 %; Immature Granulocytes # (auto) 0.98 K/uL (0.01-0.20); Immature Granulocytes % (auto) 5.2 %; Lymphocytes # (auto) 3.23 K/uL (1.20-3.40); Lymphocytes % (auto) 17.1 %; Monocytes # (auto) 1.45 K/uL (0.11-0.59); Monocytes % (auto) 7.7 %; Neutrophils # (auto) 12.98 K/uL (1.40-6.50); Neutrophils % (auto) 68.9 %
--- NOTE | 2023-10-23 13:50 | Hospitalist Progress Note ---
Date of Service October 23, 2023 Assessment & Plan (1) Abdominal pain: Plan: 83-year-old female with past med history significant for primary hyperparathyroidism, hyperlipidemia, prediabetes, mild persistent asthma, aortic ectasia, hypertension, mild mitral regurgitation, diastolic dysfunction, irritable bowel syndrome, GERD with esophagitis, incomplete bladder emptying, hereditary and idiopathic peripheral neuropathy, mild dementia, Sjogren's syndrome, history of B-cell lymphoma presents with abdominal pain and nausea and vomiting. Patient also had several episodes nausea and vomiting. She says vomit is dark color. She also reported black stools. . Denies any chest pain or shortness of breath. No cough. No headache. Abdominal pain Possible Ischemic Colitis CT scan suspicious for nonspecific colitis and also esophagitis Initial lactic acid was 3.7 trended down to 2.9 and 2.6 BioFire negative and UA negative Blood cultureno growth till date Continue on ciprofloxacin and Flagyl. Plan to treat with antibiotics for total of 7 days Diet advanced to low fiber diet. monitor for recurrent on abdominal pain. Pain control Possible GI bleed Possible acute blood loss anemia, possible hemodilution Having dark vomitus and black stools Hemoglobin down trended from 15.3 to 11-12 GI consulted; no plans for egd inpatient was on iv Protonix, switched over to PO. Mild persistent asthma Continue home inhalers Requiring oxygen CXR- no consolidation suggestive of pneumonia Hypertension resume amlodpine , hold lisinopril Will monitor Hyperlipidemia on liptor, continue Elevated troponin High sensitivity troponin -6.8 on admission; gradually up trended to 56 and trended EKG shows sinus tachycardia; non-specific ST wave changes Echocardiogram shows EF of 60 to 65 %; grade I diastolic dysfunction Patient allergic to aspirin. on lipitor 10mg at home, continue History of diastolic dysfunction Monitor for volume overload History of cutaneous B-cell lymphoma Following with hematology and oncology Mild dementia Monitor for delirium GERD conitnue Protonix History of incomplete bladder emptying Monitor for urinary retention Chronic leukocytosis WBC elevated at 43 on admission Usually around 14K improving On antibiotics If patient has diarrhea, will obtain c.diff History of hyperparathyroidism Calcium levels wnl prediabetes 5.8% of HbA1c DVT prophylaxis heparin Disposition Discussed with patient's son over the phone on 10/21/2023. Patient lives alone, concern about safely. PT/OT recommends rehab. wants [facility] to [facility] qual[facility]. CM on board Full code Please note the above document was generated using voice recognition software. It may contain grammatical, syntax or spelling errors. Any formal questions or concerns about the content, text or information contained within the body of this dictation should be directly addressed to the provider for clarification Admission and Anticipated Discharge Date Admission Date: October 18, 2023 Subjective Patient seen and examined at bedside. She is sitting up on the chair at the side of the bed; not in distress. She denies any abdominal pain or diarrhea No significant events overnight Review of Systems Review of Systems: All systems reviewed & are unremarkable except as noted in Subjective Physical Exam Physical Exam: General- Not in distress. Head- atraumatic Eyes- PERRL. ENT- oropharynx clear Neck- supple, no JVD. Lungs- clear to auscultation no wheezing or crackles Heart- regular rate and rhythm; no murmur, no gallop. Abdomen-soft, non-tender, BS present Extremities- no pretibial edema, no erythema seen Neuro- alert, oriented PERRL,no facial palsy; no dysarthria; moves extremities. Skin- warm & dry Results & Data Results & Data Vital Signs (Past 12 Hours) Vital Signs Temp Pulse Pulse Resp BP Pulse Ox O2 Del Method 10/23/23 10:57 36.7 C 70 18 121/51 L 98 Room Air 10/23/23 07:19 Room Air 10/23/23 07:18 64 10/23/23 07:07 36.8 C 69 18 136/67 93 Room Air 10/23/23 03:14 36.8 C 74 18 138/62 95 Room Air
[2023-10-24 07:14] LABS: Hematocrit (blood only) 38.7 % (37.0-47.0); Hemoglobin 12.8 g/dl (12.0-16.0); Mean Corpuscular Hemoglobin 28.1 pg (25.0-34.0); Mean Corpuscular Hgb Conc 33.1 g/dL (32.0-36.0); Mean Corpuscular Volume 84.9 fL (80.0-100.0); Platelet Count 261 K/uL (130-400); RDW Coefficient of Variation 14.3 % (11.5-14.5); RDW Standard Deviation 43.5 fL (36.4-46.3); Red Blood Count 4.56 M/uL (4.20-5.40); White Blood Count 18.94 K/ul (4.8-10.8)
[2023-10-24 07:36] LABS: Basophils # (auto) 0.14 K/uL (0.00-0.20); Basophils % (auto) 0.7 %; Eosinophils # (auto) 0.08 K/uL (0.00-0.50); Eosinophils % (auto) 0.4 %; Immature Granulocytes # (auto) 1.17 K/uL (0.01-0.20); Immature Granulocytes % (auto) 6.2 %; Lymphocytes # (auto) 4.04 K/uL (1.20-3.40); Lymphocytes % (auto) 21.3 %; Monocytes # (auto) 1.32 K/uL (0.11-0.59); Neutrophils # (auto) 12.19 K/uL (1.40-6.50); Neutrophils % (auto) 64.4 %
--- NOTE | 2023-10-24 09:59 | Hospitalist Progress Note ---
Date of Service October 24, 2023 Assessment & Plan (1) Abdominal pain: Plan: 83-year-old female with past med history significant for primary hyperparathyroidism, hyperlipidemia, prediabetes, mild persistent asthma, aortic ectasia, hypertension, mild mitral regurgitation, diastolic dysfunction, irritable bowel syndrome, GERD with esophagitis, incomplete bladder emptying, hereditary and idiopathic peripheral neuropathy, mild dementia, Sjogren's syndrome, history of B-cell lymphoma presents with abdominal pain and nausea and vomiting. Patient also had several episodes nausea and vomiting. She says vomit is dark color. She also reported black stools. . Denies any chest pain or shortness of breath. No cough. No headache. Abdominal pain Possible Ischemic Colitis CT scan suspicious for nonspecific colitis and also esophagitis Initial lactic acid was 3.7 trended down to 2.9 and 2.6 BioFire negative and UA negative Blood cultureno growth till date Continue on ciprofloxacin and Flagyl. Plan to treat with antibiotics for total of 7 days Diet advanced to low fiber diet. monitor for recurrent on abdominal pain. Pain control Possible GI bleed Possible acute blood loss anemia, possible hemodilution Having dark vomitus and black stools Hemoglobin down trended from 15.3 to 11-12 GI consulted; no plans for egd inpatient was on iv Protonix, switched over to PO. Mild persistent asthma Continue home inhalers Requiring oxygen CXR- no consolidation suggestive of pneumonia Hypertension resume amlodpine , hold lisinopril Will monitor Hyperlipidemia on liptor, continue Elevated troponin High sensitivity troponin -6.8 on admission; gradually up trended to 56 and trended EKG shows sinus tachycardia; non-specific ST wave changes Echocardiogram shows EF of 60 to 65 %; grade I diastolic dysfunction Patient allergic to aspirin. on lipitor 10mg at home, continue History of diastolic dysfunction Monitor for volume overload History of cutaneous B-cell lymphoma Following with hematology and oncology Mild dementia Monitor for delirium GERD conitnue Protonix History of incomplete bladder emptying Monitor for urinary retention Chronic leukocytosis WBC elevated at 43 on admission Usually around 14K improving On antibiotics If patient has diarrhea, will obtain c.diff History of hyperparathyroidism Calcium levels wnl prediabetes 5.8% of HbA1c DVT prophylaxis heparin Disposition Discussed with patient's son over the phone on 10/21/2023. Patient lives alone, concern about safely. PT/OT recommends rehab. wants [facility]. CM on board Full code Please note the above document was generated using voice recognition software. It may contain grammatical, syntax or spelling errors. Any formal questions or concerns about the content, text or information contained within the body of this dictation should be directly addressed to the provider for clarification Admission and Anticipated Discharge Date Admission Date: October 18, 2023 Subjective Patient seen and examined at bedside. Comfortable; not in distress. Denies fever, chills, chest pain, shortness of breath, abdominal pain or urinary symptoms. No significant overnight events Review of Systems Review of Systems: All systems reviewed & are unremarkable except as noted in Subjective Physical Exam Physical Exam: General- Not in distress. Head- atraumatic Eyes- PERRL. ENT- oropharynx clear Neck- supple, no JVD. Lungs- clear to auscultation no wheezing or crackles Heart- regular rate and rhythm; no murmur, no gallop. Abdomen-soft, non-tender, BS present Extremities- no pretibial edema, no erythema seen Neuro- alert, oriented PERRL,no facial palsy; no dysarthria; moves extremities. Skin- warm & dry Results & Data Results & Data Vital Signs (Past 12 Hours) Vital Signs Temp Pulse Pulse Resp BP Pulse Ox O2 Del Method 10/24/23 07:22 36.3 C L 73 18 146/74 H 94 Room Air 10/24/23 04:25 37.0 C 68 16 132/69 96 Room Air 10/23/23 23:22 74 10/23/23 22:32 37.2 C 73 18 134/70 95 Room Air
[2023-10-25 03:36] VITALS: RESP 17; O2SAT 95
[2023-10-25 07:01] VITALS: TEMP 98.1
[2023-10-25 07:05] LABS: Hematocrit (blood only) 38.2 % (37.0-47.0); Hemoglobin 12.5 g/dl (12.0-16.0); Mean Corpuscular Hgb Conc 32.7 g/dL (32.0-36.0); Mean Corpuscular Volume 85.5 fL (80.0-100.0); Mean Platelet Volume 9.2 fL (9.4-12.4); Platelet Count 243 K/uL (130-400); RDW Coefficient of Variation 14.5 % (11.5-14.5); RDW Standard Deviation 43.9 fL (36.4-46.3); Red Blood Count 4.47 M/uL (4.20-5.40); White Blood Count 15.98 K/ul (4.8-10.8)
[2023-10-25 07:19] LABS: BUN Creatinine Ratio 16.7 (10-20); Creatinine Clr Calc Pharmacy 58.7 ml/min; Est GFR (African American) 94.7 ml/min; Est GFR (Non-African American) 81.7 ml/min; Potassium 4.3 mmol/L (3.5-5.1)
[2023-10-25 07:31] LABS: Basophils # (auto) 0.09 K/uL (0.00-0.20); Basophils % (auto) 0.6 %; Eosinophils # (auto) 0.07 K/uL (0.00-0.50); Eosinophils % (auto) 0.4 %; Immature Granulocytes # (auto) 1.04 K/uL (0.01-0.20); Immature Granulocytes % (auto) 6.5 %; Lymphocytes # (auto) 3.22 K/uL (1.20-3.40); Lymphocytes % (auto) 20.2 %; Monocytes # (auto) 1.25 K/uL (0.11-0.59); Monocytes % (auto) 7.8 %; Neutrophils # (auto) 10.31 K/uL (1.40-6.50); Neutrophils % (auto) 64.5 %
--- NOTE | 2023-10-25 13:00 | Hospitalist Progress Note ---
Date of Service October 25, 2023 Assessment & Plan (1) Abdominal pain: Plan: 83-year-old female with past med history significant for primary hyperparathyroidism, hyperlipidemia, prediabetes, mild persistent asthma, aortic ectasia, hypertension, mild mitral regurgitation, diastolic dysfunction, irritable bowel syndrome, GERD with esophagitis, incomplete bladder emptying, hereditary and idiopathic peripheral neuropathy, mild dementia, Sjogren's syndrome, history of B-cell lymphoma presents with abdominal pain and nausea and vomiting. Patient also had several episodes nausea and vomiting. She says vomit is dark color. She also reported black stools. . Denies any chest pain or shortness of breath. No cough. No headache. Abdominal pain Possible Ischemic Colitis Esophagitis --CT ABD:Left hemicolon wall thickening with pericolic fat stranding and fluid. Appearance is suspicious for nonspecific colitis. Increased colonic stool burden suggesting constipation. Small hiatal hernia, similar to prior. Distal esophageal wall thickening suggesting esophagitis. -- Lactic acidosis resolved with IV fluids --BioFire negative --Urinalysis not suggestive of UTI --Blood cultures negative --Continue on ciprofloxacin and Flagyl to complete 7-day course Tolerating low fiber diet Pain resolved Appreciate surgery, GI input Continue PPI Needs outpatient EGD given esophagitis Possible GI bleed Possible acute blood loss anemia, possible hemodilution Hemoglobin stable GI on board Continue Protonix as above Needs outpatient EGD Mild persistent asthma Continue home inhalers CXR- no consolidation suggestive of pneumonia Saturating well on room air Hypertension Continue amlodipine, lisinopril Monitor Hyperlipidemia Continue Lipitor Elevated troponin Likely demand ischemia EKG shows sinus tachycardia; non-specific ST wave changes Echocardiogram shows EF of 60 to 65 %; grade I diastolic dysfunction Patient allergic to aspirin. on lipitor 10mg at home, continue History of diastolic dysfunction Monitor for volume overload History of cutaneous B-cell lymphoma Following with hematology and oncology Mild dementia Monitor for delirium GERD Continue Protonix History of incomplete bladder emptying Monitor for urinary retention Chronic leukocytosis WBC elevated at 43 on admission Usually around 14K improving On antibiotics History of hyperparathyroidism Calcium levels wnl prediabetes 5.8% of HbA1c DVT prophylaxis heparin SQ CODE STATUS Full code Disposition Home with home health Admission and Anticipated Discharge Date Admission Date: October 18, 2023 Subjective Patient is seen and examined at bedside States feeling well today Offers no new complaints Denies any chest pain, dyspnea, nausea, vomiting, abdominal pain Denies any bleeding issues Plan to be discharged home today Review of Systems Review of Systems: All systems reviewed & are unremarkable except as noted in Subjective Physical Exam Physical Exam: Physical Exam: Vitals signs as noted above General Appearance:Moderately built and nourished, no apparent distress Head: normocephalic, Atraumatic Eyes: normal inspection, EOMI Neck: supple, Trachea midline Respiratory/Chest: Normal breath sounds, CTA, No accessory muscle use Cardiovascular: S1, S2, No murmur Abdomen/GI:Soft, Non tender, Bowel sounds present Extremities/Musculoskeletal:normal inspection, no edema Neurologic/Psych:AAOX3, grossly no focal neurological deficits Skin: normal color, warm Results & Data Results & Data Vital Signs (Past 12 Hours) Vital Signs Temp Pulse Pulse Resp BP Pulse Ox O2 Del Method 10/25/23 12:29 72 10/25/23 07:00 36.7 C 68 17 138/67 95 Room Air 10/25/23 03:31 36.5 C 70 17 124/65 95 Room Air Laboratory Results Short CBC 10/25/23 Range/Units 06:32 WBC 15.98 H (4.8-10.8) K/ul Hgb 12.5 (12.0-16.0) g/dl Hct 38.2 (37.0-47.0) % Plt Count 243 (130-400) K/uL BMP 10/25/23 06:32 Sodium 138 Potassium 4.3 Chloride 104 Carbon Dioxide 29 BUN 11 Creatinine 0.66 Glucose 121 H Calcium 9.0
--- NOTE | 2023-10-25 13:09 | Discharge Summary ---
Date of Service October 25, 2023 Admission HPI Per Admitting Provider 83-year-old female with past med history significant for primary hyperparathyroidism, hyperlipidemia, prediabetes, mild persistent asthma, aortic ectasia, hypertension, mild mitral regurgitation, diastolic dysfunction, irritable bowel syndrome, GERD with esophagitis, incomplete bladder emptying, hereditary and idiopathic peripheral neuropathy, mild dementia, Sjogren's syndrome, history of B-cell lymphoma presents with abdominal pain and nausea and vomiting. Patient states having abdominal pain since yesterday morning severe in nature. Patient also had several episodes nausea and vomiting. She says vomit is dark color. She also has black stools. Patient seem somewhat uncomfortable with pain. Denies any chest pain or shortness of breath. No cough. No headache. Vision is okay. No runny nose or sore throat. Micturating okay. Hemodynamics are okay. Past medical history. As mentioned above Past surgical history. Colonoscopy. EGD. Laparoscopic paraesophageal hernia repair. Family history mother had breast cancer. Hypertension. Son has hyperlipidemia Social history. Quit smoking 1971. Smoked 1 pack a day for 5 years. No alcohol use. No drug use. Admission Exam Per Admitting Provider General- Not in distress. Head- atraumatic Eyes- PERRL. ENT- oropharynx clear Neck- supple, no JVD. Lungs- clear to auscultation no wheezing or crackles Heart- regular rate and rhythm; no murmur, no gallop. Abdomen- normal bowel sounds, soft, diffuse tender, guarding present, no distension Extremities- no pretibial edema, no erythema seen Neuro- alert, oriented PERRL,no facial palsy; no dysarthria; moves extremities. Skin- warm & dry Principal Diagnosis Abdominal pain Possible ischemic colitis Esophagitis Discharge Data Allergies Allergy/AdvReac Type Severity Reaction Status Date / Time aspirin Allergy Mild lip sweling Verified 04/28/22 11:25 Penicillins Allergy Mild UNKNOWN Verified 04/28/22 11:26 diphenhydramine Allergy Edema of Verified 04/28/22 11:25 [From Benadryl] face, lips, tongue ibuprofen Allergy edema of Verified 04/28/22 11:25 face, lips, tongue red dye Allergy Edema of Verified 04/28/22 11:25 face, lips & tongue. Hives Consultations 10/18/23 00:25 Consult General Surgery Stat ED Decision to Admit Stat 10/18/23 08:00 Consult Gastroenterology Routine Procedures Performed Laboratory Results WBC 15.98 K/ul (4.8-10.8) H 10/25/23 06:32 RBC 4.47 M/uL (4.20-5.40) 10/25/23 06:32 Hgb 12.5 g/dl (12.0-16.0) 10/25/23 06:32 Hct 38.2 % (37.0-47.0) 10/25/23 06:32 MCV 85.5 fL (80.0-100.0) 10/25/23 06:32 MCH 28.0 pg (25.0-34.0) 10/25/23 06:32 MCHC 32.7 g/dL (32.0-36.0) 10/25/23 06:32 RDW Std Deviation 43.9 fL (36.4-46.3) 10/25/23 06:32 RDW Coeff of [place]rella 14.5 % (11.5-14.5) 10/25/23 06:32 Plt Count 243 K/uL (130-400) 10/25/23 06:32 MPV 9.2 fL (9.4-12.4) L 10/25/23 06:32 Immature Gran % (Auto) 6.5 % 10/25/23 06:32 Neut % (Auto) 64.5 % 10/25/23 06:32 Lymph % (Auto) 20.2 % 10/25/23 06:32 [place] % (Auto) 7.8 % 10/25/23 06:32 Eos % (Auto) 0.4 % 10/25/23 06:32 Baso % (Auto) 0.6 % 10/25/23 06:32 Neut # (Auto) 10.31 K/uL (1.40-6.50) H 10/25/23 06:32 Lymph # (Auto) 3.22 K/uL (1.20-3.40) 10/25/23 06:32 [place] # (Auto) 1.25 K/uL (0.11-0.59) H 10/25/23 06:32 Eos # (Auto) 0.07 K/uL (0.00-0.50) 10/25/23 06:32 Baso # (Auto) 0.09 K/uL (0.00-0.20) 10/25/23 06:32 Immature Gran # (Auto) 1.04 K/uL (0.01-0.20) H 10/25/23 06:32 RBC Morphology Unremarkable 10/17/23 20:32 PT 11.4 Seconds (9.0-12.0) 10/17/23 20:32 INR 1.1 (0.9-1.1) 10/17/23 20:32 Sodium 138 mmol/L (136-145) 10/25/23 06:32 Potassium 4.3 mmol/L (3.5-5.1) 10/25/23 06:32 Chloride 104 mmol/L (98-107) 10/25/23 06:32 Carbon Dioxide 29 mmol/L (21-32) 10/25/23 06:32 Anion Gap 5 (3-11) 10/25/23 06:32 BUN 11 mg/dl (6-23) 10/25/23 06:32 Creatinine 0.66 mg/dl (0.6-1.2) 10/25/23 06:32 Est Cr Clr Drug Dosing 58.7 ml/min 10/25/23 06:32 Est GFR ( Amer) 94.7 ml/min 10/25/23 06:32 Est GFR (Non-Af Amer) 81.7 ml/min 10/25/23 06:32 BUN/Creatinine Ratio 16.7 (10-20) 10/25/23 06:32 Glucose 121 mg/dl (70-99(Fasting)) H 10/25/23 06:32 Estimat Average Glucose 120 mg/dl 10/18/23 05:35 Hemoglobin A1c 5.8 % (4.5-5.6) H 10/18/23 05:35 Lactate 2.0 mmol/L (0.4-2.0) 10/18/23 05:35 Calcium 9.0 mg/dl (8.6-10.3) 10/25/23 06:32 Magnesium 1.9 mg/dl (1.7-2.4) 10/18/23 05:35 Total Bilirubin 1.0 mg/dl (0.2-1.0) 10/17/23 20:32 AST 17 U/L (13-39) 10/17/23 20:32 ALT 15 U/L (7-52) 10/17/23 20:32 Alkaline Phosphatase 141 U/L (34-104) H 10/17/23 20:32 Troponin I High Sens 40.9 pg/ml (0-14) H D 10/19/23 14:31 Total Protein 6.8 gm/dl (6.0-8.3) 10/17/23 20:32 Albumin 4.1 gm/dl (3.4-5.0) 10/17/23 20:32 Globulin 2.7 gm/dl (2.5-4.0) 10/17/23 20:32 Albumin/Globulin Ratio 1.5 (0.9-2) 10/17/23 20:32 Triglycerides 73 mg/dl (0-150) 10/21/23 07:13 Cholesterol 84 mg/dl (0-200) 10/21/23 07:13 LDL Cholesterol, Calc 37 mg/dl 10/21/23 07:13 VLDL Cholesterol, Calc 15 mg/dl (0-30) 10/21/23 07:13 HDL Cholesterol 32 mg/dl 10/21/23 07:13 Cholesterol/HDL Ratio 2.6 (0-5) 10/21/23 07:13 Lipase 24 U/L (11-82) 10/17/23 20:32 Procalcitonin 2.25 ng/ml (0-0.5) H 10/17/23 20:32 Urine Color Dark Yellow 10/17/23 21:58 Urine Appearance Clear (Clear) 10/17/23 21:58 Urine pH 6.5 (4.5-7.5) 10/17/23 21:58 Ur Specific [place] 1.039 (1.000-1.030) H 10/17/23 21:58 Urine Protein 1+ (Negative) H 10/17/23 21:58 Urine Glucose (UA) Negative (Negative) 10/17/23 21:58 Urine Ketones 1+ (Negative) H 10/17/23 21:58 Urine Blood Negative (Negative) 10/17/23 21:58 Urine Nitrite Negative (Negative) 10/17/23 21:58 Urine Bilirubin Negative (Negative) 10/17/23 21:58 Urine Urobilinogen Negative (Negative) 10/17/23 21:58 Ur Leukocyte Esterase Trace (Negative) H 10/17/23 21:58 Urine WBC (Auto) 0-5 /hpf (0-5) 10/17/23 21:58 Urine RBC (Auto) 0-2 /hpf (0-2) 10/17/23 21:58 U Hyaline Cast (Auto) 6-10 /lpf (0-2) H 10/17/23 21:58 U Epithel Cells (Auto) 0-2 /hpf (0-2) 10/17/23 21:58 Urine Bacteria (Auto) None Seen (None Seen) 10/17/23 21:58 Adenovirus (PCR) Not Detected (NotDetected) 10/17/23 20:30 B. pertussis DNA (PCR) Not Detected (NotDetected) 10/17/23 20:30 B.parapertussis DNA PCR Not Detected (NotDetected) 10/17/23 20:30 C. pneumoniae DNA (PCR) Not Detected (NotDetected) 10/17/23 20:30 Coronavirus OC43 (PCR) Not Detected (NotDetected) 10/17/23 20:30 Coronavirus HKU1 (PCR) Not Detected (NotDetected) 10/17/23 20:30 Coronavirus 229E (PCR) Not Detected (NotDetected) 10/17/23 20:30 SARS-CoV-2 (PCR) Not Detected (NotDetected) 10/17/23 20:30 Coronavirus NL63 (PCR) Not Detected (NotDetected) 10/17/23 20:30 Human Metapneumovir PCR Not Detected (NotDetected) 10/17/23 20:30 Influenza Type A (PCR) Not Detected (NotDetected) 10/17/23 20:30 Influenza Type B (PCR) Not Detected (NotDetected) 10/17/23 20:30 M. pneumoniae (PCR) Not Detected (NotDetected) 10/17/23 20:30 Parainfluenza 1 (PCR) Not Detected (NotDetected) 10/17/23 20:30 Parainfluenza 2 (PCR) Not Detected (NotDetected) 10/17/23 20:30 Parainfluenza 3 (PCR) Not Detected (NotDetected) 10/17/23 20:30 Parainfluenza 4 (PCR) Not Detected (NotDetected) 10/17/23 20:30 RSV (PCR) Not Detected (NotDetected) 10/17/23 20:30 Entero/Rhino (PCR) Not Detected (NotDetected) 10/17/23 20:30 Blood Type O Positive 10/18/23 00:40 Antibody Screen NEGATIVE 10/18/23 00:40 Impressions Abdomen/Pelvis CT 10/17/23 20:36 Exam(s): CT ABDOMEN + PELVIS With Contrast IV Amt: 91 ml opti 320 EXAM: CT Abdomen and Pelvis With Intravenous Contrast CLINICAL HISTORY: Reason for exam: abd pain. TECHNIQUE: Axial computed tomography images of the abdomen and pelvis with intravenous contrast. CTDI is 18.64 mGy and DLP is 944.76 mGy-cm. Automated exposure control was utilized for the study. A dose lowering technique was utilized adhering to the principles of ALARA. CONTRAST: Patient received 91 ml opti 320 of IV contrast COMPARISON: 10/29/22 FINDINGS: Lung bases: Emphysema. Mediastinum: Small hiatal hernia, similar to prior. Distal esophageal wall thickening suggesting esophagitis. ABDOMEN: Liver: Unremarkable. No mass. Gallbladder and bile ducts: Unremarkable. No calcified stones. No ductal dilation. Pancreas: Unremarkable. No mass. No ductal dilation. Spleen: Unremarkable. No splenomegaly. Adrenals: Unremarkable. No mass. Kidneys and ureters: Symmetric renal enhancement. No hydronephrosis. Simple renal cysts; no follow-up indicated. Duplex left renal collecting system. Stomach and bowel: Left hemicolon wall thickening with pericolic fat stranding and fluid. Increased colonic stool burden suggesting constipation. No mechanical bowel obstruction. PELVIS: Appendix: No evidence of appendicitis. Bladder: Unremarkable. No mass. Reproductive: Unremarkable as visualized. ABDOMEN and PELVIS: Intraperitoneal space: Small volume of ascites. No free air. Bones/joints: Osteopenia. Disc and facet degeneration in the lumbar spine. No acute fracture. No dislocation. Soft tissues: Unremarkable. Vasculature: Coronary artery atherosclerosis. Atherosclerosis without aortic aneurysm. Lymph nodes: Unremarkable. No enlarged lymph nodes. IMPRESSION: 1. Left hemicolon wall thickening with pericolic fat stranding and fluid. Appearance is suspicious for nonspecific colitis. 2. Increased colonic stool burden suggesting constipation. 3. Small hiatal hernia, similar to prior. Distal esophageal wall thickening suggesting esophagitis. Electronically signed by: Isaias Henley M.D. 10/17/23 22:46 PM Chest X-Ray 10/18/23 02:47 XR chest 1V portable HISTORY: hypoxia COMPARISON: Chest 10/13/2023. FINDINGS: Mild elevation of the left hemidiaphragm with left basilar linear densities. This favors subsegmental atelectasis. Otherwise, the lungs are near. The heart is normal in size. Left tracheal deviation, unchanged. No evidence for pulmonary edema. No acute fractures. IMPRESSION: Mild elevation of the left hemidiaphragm with left basilar linear densities. This favors subsegmental atelectasis. ACT 112: Negative or not required by law. Electronically signed by: Milton Pulido M.D. 10/18/2023 8:37 AM KUB X-Ray 10/18/23 12:14 XR KUB/Abdomen 1 view CLINICAL HISTORY: assess stool pattern, rule out dilation TECHNIQUE: 1 view of the abdomen was obtained. Comparison: None available at the time of this dictation. FINDINGS: Lung bases are unremarkable. Degenerative changes are seen in the visualized skeleton. The bowel gas pattern is nonobstructive. A moderate amount of stool is noted within the large bowel. IMPRESSION: Nonobstructive bowel gas pattern. ACT 112: Negative or not required by law. Electronically signed by: Julian Culp M.D. 10/18/2023 12:59 PM Ordered Studies 10/17/23 20:36 CT abd pelvis IV con only Stat Hospital Course (1) Abdominal pain: 83-year-old female with past med history significant for primary hyperparathyroidism, hyperlipidemia, prediabetes, mild persistent asthma, aortic ectasia, hypertension, mild mitral regurgitation, diastolic dysfunction, irritable bowel syndrome, GERD with esophagitis, incomplete bladder emptying, hereditary and idiopathic peripheral neuropathy, mild dementia, Sjogren's syndrome, history of B-cell lymphoma presents with abdominal pain and nausea and vomiting. Patient also had several episodes nausea and vomiting. She says vomit is dark color. She also reported black stools. . Denies any chest pain or shortness of breath. No cough. No headache. Abdominal pain Possible Ischemic Colitis Esophagitis --CT ABD:Left hemicolon wall thickening with pericolic fat stranding and fluid. Appearance is suspicious for nonspecific colitis. Increased colonic stool burden suggesting constipation. Small hiatal hernia, similar to prior. Distal esophageal wall thickening suggesting esophagitis. -- Lactic acidosis resolved with IV fluids --BioFire negative --Urinalysis not suggestive of UTI --Blood cultures negative --Continue on ciprofloxacin and Flagyl to complete 7-day course Tolerating low fiber diet Pain resolved Appreciate surgery, GI input Continue PPI Needs outpatient EGD given esophagitis Possible GI bleed Possible acute blood loss anemia, possible hemodilution Hemoglobin stable GI on board Continue Protonix as above Needs outpatient EGD Mild persistent asthma Continue home inhalers CXR- no consolidation suggestive of pneumonia Saturating well on room air Hypertension Continue amlodipine, lisinopril Monitor Hyperlipidemia Continue Lipitor Elevated troponin Likely demand ischemia EKG shows sinus tachycardia; non-specific ST wave changes Echocardiogram shows EF of 60 to 65 %; grade I diastolic dysfunction Patient allergic to aspirin. on lipitor 10mg at home, continue History of diastolic dysfunction Monitor for volume overload History of cutaneous B-cell lymphoma Following with hematology and oncology Mild dementia Monitor for delirium GERD Continue Protonix History of incomplete bladder emptying Monitor for urinary retention Chronic leukocytosis WBC elevated at 43 on admission Usually around 14K improving On antibiotics History of hyperparathyroidism Calcium levels wnl prediabetes 5.8% of HbA1c DVT prophylaxis heparin SQ CODE STATUS Full code Disposition Home with home health Total Time Total Time Spent Total Time Spent (In Minutes): 47 minutes Discharge Plan Discharge Items Patient Disposition: Home - Home Health Services Reason For Visit: GI BLEED, COLITIS Discharge Diagnosis: Abdominal pain Possible ischemic colitis Esophagitis Activity: Resume your previous activity Exercise/Sports: Wait until after follow-up appointment Non-emergency contact: Primary Care Provider and Reinforcer Call non-emergency contact if: you have any medication questions, your symptoms worsen, your pain is concerning for you and you have a fever Follow-up/Referrals: Kathy Sweeney MD [Primary Care Provider] - (Date & Time 10/31/2023 3:20 PM Provider Kathy Sweeney MD [facility] ) Diet: Low Fiber Addtl Attending Provider Instructions: Follow-up with your primary care physician on 10/31/2023 3:20 PM Follow-up with your ramp service employee for outpatient upper endoscopy as recommended by your ramp service employee. -Complete the antibiotic course ciprofloxacin, Flagyl as prescribed for 1 more day. -- Start taking Protonix 40 mg daily as recommended by your ramp service employee. Seek immediate medical attention if your symptoms reoccur or worsen Please take all medications as instructed on discharge list below. Please call if you have any questions or problems. You can reach a [facility] hospitalist on duty at [facility] 24 hours a day by calling [phone] Pending Studies at Discharge: No Stand-Alone Forms: [facility], Smoking Cessation Medications and DC Order Prescriptions: New metronidazole 500 mg Tablet 500 mg PO TID Qty: 3 0RF ciprofloxacin HCl 500 mg tablet 500 mg PO BID Qty: 2 0RF pantoprazole 40 mg Tablet,Delayed Release (Dr/Ec) 40 mg PO DAILY Qty: 30 1RF Continued trazodone 50 mg tablet 50 mg PO HS atorvastatin 10 mg tablet 10 mg PO DAILY lisinopril 20 mg tablet 20 mg PO DAILY amlodipine 5 mg tablet 5 mg PO DAILY tramadol 50 mg tablet 50 mg PO Q6H PRN (Reason: Pain) meclizine 25 mg tablet 25 mg PO TID PRN (Reason: Dizziness Or Vertigo) montelukast 10 mg tablet 10 mg PO HS estradiol 0.01 % (0.1 mg/gram) cream 1 applic VAGINAL UD Rx Instructions: 1-3 times a week albuterol sulfate 90 mcg/actuation HFA aerosol inhaler 2 inh INHALATION Q4H PRN (Reason: Shortness Of Breath Or Wheezing) fluticasone propionate 110 mcg/actuation HFA aerosol inhaler 2 puff INHALATION BID Changed famotidine 20 mg tablet 20 mg PO HS PRN (Reason: heartburn) Qty: 0 0RF Discharge Orders: Discharge Order (Routine); Ordered 10/25/23 Ordered By: Winston Howard Admission Data Admit Date/Time: 10/18/23 02:39 Attending Provider: Winston Howard Admit Provider: Delano Heller Primary Care Provider: Kathy Sweeney Other Providers: Franky Houser; Delano Heller; Fausto Maciel; [facility] Fax
[2023-10-25 13:21] VITALS: BP 130/80; PULSE 86
== END 2023-10-25 16:18 | disposition home health service (06) | DRG 394 ==
LOC: ED 20:27 → 2S 10-18 02:39 → SUATTDRO 10-18 02:39 → 2S 10-18 03:06

== ENCOUNTER 2023-12-04 13:56 | Observation (INO) ==
--- NOTE | 2023-12-04 14:05 | ED Triage Note ---
Date of Service December 04, 2023 Provider in Triage Author: Oralia Simmons History of Present Illness This patient was briefly evaluated while in triage. An abbreviated physical exam was performed. This patient is a 83-year-old Female who presents to the ED for evaluation history of dementia, HTN, asthma, dyslipidemia confusion, delusions (seeing things that aren't there), listing/leaning to the left, started acutely today possible UTI no fevers hx of SDH 10/29/23-transferred to [facility] Physical Exam GENERAL: NAD CARDIOVASCULAR: RRR RESPIRATORY: CTA ABDOMEN: BS x 4. Nontender to palpation. NEURO: speech clear, no facial droop, UE/LE strength equal and intact Initial orders for labs and / or imaging were placed and patient was placed in the waiting area until a bed is available. Please see further documentation for the full ED course.
[2023-12-04 14:35] LABS: Basophils # (auto) 0.14 K/uL (0.00-0.20); Basophils % (auto) 0.9 %; Eosinophils # (auto) 0.09 K/uL (0.00-0.50); Eosinophils % (auto) 0.6 %; Hematocrit (blood only) 44.6 % (37.0-47.0); Hemoglobin 14.7 g/dl (12.0-16.0); Immature Granulocytes # (auto) 0.09 K/uL (0.01-0.20); Immature Granulocytes % (auto) 0.6 %; Lymphocytes # (auto) 2.75 K/uL (1.20-3.40); Lymphocytes % (auto) 18.1 %; Mean Corpuscular Hemoglobin 28.1 pg (25.0-34.0); Mean Corpuscular Volume 85.3 fL (80.0-100.0); Mean Platelet Volume 8.7 fL (9.4-12.4); Monocytes # (auto) 1.46 K/uL (0.11-0.59); Monocytes % (auto) 9.6 %; Neutrophils # (auto) 10.64 K/uL (1.40-6.50); Neutrophils % (auto) 70.2 %; Platelet Count 317 K/uL (130-400); RDW Coefficient of Variation 14.6 % (11.5-14.5); RDW Standard Deviation 45.2 fL (36.4-46.3); Red Blood Count 5.23 M/uL (4.20-5.40); White Blood Count 15.17 K/ul (4.8-10.8)
[2023-12-04 14:45] LABS: Alanine Aminotransferase 14 U/L (7-52); Albumin Globulin Ratio 1.4 (0.9-2); Albumin Level 4.2 gm/dl (3.4-5.0); Alkaline Phosphatase 65 U/L (34-104); Anion Gap 8 (3-11); Aspartate Aminotransferase 15 U/L (13-39); BUN Creatinine Ratio 24.6 (10-20); Bilirubin,Total 0.5 mg/dl (0.2-1.0); Blood Urea Nitrogen 14 mg/dl (6-23); Calcium 9.8 mg/dl (8.6-10.3); Carbon Dioxide 28 mmol/L (21-32); Chloride 103 mmol/L (98-107); Globulin 3.1 gm/dl (2.5-4.0); Glucose 132 mg/dl (70-99(Fasting)); Magnesium 1.8 mg/dl (1.7-2.4); Potassium 3.4 mmol/L (3.5-5.1); Sodium 139 mmol/L (136-145); Total Protein 7.3 gm/dl (6.0-8.3)
--- NOTE | 2023-12-04 14:47 | XRay Report ---
XR chest 1V portable CLINICAL HISTORY: weakness, confusion TECHNIQUE: Single frontal radiograph of the chest was obtained. Comparison: Comparison is made to chest radiograph 10/29/2023 FINDINGS: No lines and tubes are seen. The cardiomediastinal silhouette is normal. The lungs are clear. No evid ence of pleural effusion or pneumothorax. IMPRESSION: No acute chest disease. ACT 112: Negative or not required by law. Electronically signed by: Julian Culp M.D. 12/04/2023 2:45 PM
[2023-12-04 14:52] LABS: Troponin I High Sensitivity 7.4 pg/ml (0-14)
--- NOTE | 2023-12-04 14:56 | Emergency Department Note ---
Impression & Plan Altered mental status, Acute UTI (urinary tract infection) ED Provider Note ED Provider Note NAME: HALLE HAMMOND AGE:83 SEX: Female : 1940 ARRIVES VIA: Private vehicle INFORMANT: Patient, son ED PROVIDER(s): Jeni Slater DO CHIEF COMPLAINT: Altered mental status HPI: This is an 83-year-old female brought to the emergency department by her son due to concern for increased confusion and hallucinations. Patient does have history of dementia although he states today these findings seemed new and worse. He states she has had similar symptoms when she has had a prior urinary tract infection. He also notes that a month ago after a fall she has had a subdural hematoma. He states she was also recently started on Seroquel last week to help with her sleeping. He states no fevers or chills, no nausea or vomiting, no change in stools. He states she has not complained of any pain. She denies any current pain at bedside. She also denies headaches, shortness of breath, or nausea. He states she is still ambulatory although occasionally needs assistance. They do have staff that come into the house daily to help with her care including physical therapy. PAST MEDICAL HISTORY:See Below PAST SURGICAL HISTORY:See Below FAMILY HISTORY:See Below SOCIAL HISTORY:See Below HOME MEDICATIONS:See Below ALLERGIES:See Below VITALS:See Below PHYSICAL EXAMINATION: GENERAL: alert, well appearing, well nourished, no distress, non-toxic EYE EXAM: normal conjunctiva, PERRL and EOM's grossly intact OROPHARYNX: no exudate, no erythema, lips, buccal mucosa, and tongue normal and mucous membranes are moist NECK: supple, no nuchal rigidity, no adenopathy, non-tender LUNGS: Clear to auscultation. Normal chest wall mechanics, no w/r/r HEART: no murmurs, S1 normal and S2 normal ABDOMEN: abdomen soft, non-tender, normo-active bowel sounds, no masses, no rebound or guarding. SKIN: no rashes, petechiae, orbruising UPPER EXTREMITIES: upper extremities are grossly normal. FROM, nml pulses b/l. LOWER EXTREMITIES: No pitting edema. FROM, nml pulses b/l. NEURO EXAM: Pleasantly confused, cranial nerves II-XII grossly intact, normal speech, no facial droop,nogross weakness of arms, no gross weakness of legs. Gross sensation intact. No ataxia. Vital Signs: reviewed and remarkable Differential Diagnosis: ICH, CVA, pna, uti, PATTI, electrolyte abnormality, medication adr, progression of her dementia, insomnia, delirium, as well as others were considered MEDICAL DECISION MAKING: THis is an 83 yo female who presents to the ER with concern for increased confusion and hallucinations per family. The state this is similar to prior sx with a UTI, however patient did recently sustain a fall with SDH. She was afebrile and VS stable. Labs drawn and sent, IV established, EKG and CXR performed and interpreted at bedside, and patient placed on telemetry. She was sent for CT head additionally and urine collected. Nasal swab for viral panel sent also. We discussed all results at bedside. I did review prior urine culture and IV antibiotics started. Case discussed with the hospitalist team for additional evaluation and mgmt. Consultation(s): 1700: Discussed with Padmini Ibrahim hospitalist team, for additional evaluation and management. ER Treatment Provided: See below Diagnostics Interpreted By Me: -ECG: nsr at 100, left axis, nml intervals, no acute ST/T wave changes -Cardiac Monitoring: An order was placed for continuous cardiac monitoring. The monitor shows a rate of 92 with normal sinus rhythm. -Laboratory studies: As stated above and show below. -Imaging studies: ct head: no ICH Triage Nursing Note Reviewed Prior/Outside Records Reviewed - prior urine cultures reviewed Past Med/Surg History Problem List Acute UTI (urinary tract infection) (Acute) Altered mental status (Acute) Elevated lactic acid level (Acute) Colitis (Acute) Leukocytosis (Acute) Abdominal pain (Acute) Colitis Vasovagal episode UTI (urinary tract infection) Leukocytosis (Acute) Bradycardia (Acute) Acute UTI (Acute) Syncope (Acute) Asthma (Acute) hx-"no problems for a long time" Bradycardia Syncope and collapse Hyperparathyroidism B-cell lymphoma Hypertensive urgency Confusion (Acute) Generalized weakness (Acute) Acute UTI (urinary tract infection) (Acute) Medical History Elevated procalcitonin Osteopenia GERD (gastroesophageal reflux disease) Hyperlipidemia Hypertension Surgical History History of cataract surgery RT History of laparotomy for removal ectopic History of esophagogastroduodenoscopy (EGD) Hx of colonoscopy Social History Smoking Status: Former smoker Second Hand Exposure: No; Do You Dip or Chew Tobacco: No; Hx Alcohol Use: No Hx Substance Use: No Preferred Language: Malay Communication Ability: Effective 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 Beliefs That Will Affect Care: None Current Living Situation: Alone Current Living Situation Comment: son and granddaughter check on patient Other Information That Helps Us Care for You: No Feels Safe at Home: Yes Assistive Devices: Glasses and Oxygen - at Night Allergies Allergies Allergy/AdvReac Type Severity Reaction Status Date / Time aspirin Allergy Mild lip sweling Verified 04/28/22 11:25 Penicillins Allergy Mild UNKNOWN Verified 04/28/22 11:26 diphenhydramine Allergy Edema of Verified 04/28/22 11:25 [From Benadryl] face, lips, tongue ibuprofen Allergy edema of Verified 04/28/22 11:25 face, lips, tongue red dye Allergy Edema of Verified 04/28/22 11:25 face, lips & tongue. Hives Home Meds Home Medications Medication Instructions Recorded Confirmed albuterol sulfate 90 mcg/actuation 2 inh inhalation Q4H PRN Shortness 10/18/23 12/04/23 aerosol inhaler Of Breath Or Wheezing amlodipine 5 mg tablet 5 mg PO DAILY 10/18/23 12/04/23 atorvastatin 10 mg tablet 10 mg PO DAILY 10/18/23 12/04/23 estradiol 0.01% (0.1 mg/gram) 1 applic vaginal UD 10/18/23 12/04/23 vaginal cream fluticasone propionate 110 2 puff inhalation BID 10/18/23 12/04/23 mcg/actuation HFA aerosol inhaler lisinopril 20 mg tablet 20 mg PO DAILY 10/18/23 12/04/23 meclizine 25 mg tablet 25 mg PO TID PRN Dizziness Or 10/18/23 12/04/23 Vertigo montelukast 10 mg tablet 10 mg PO HS 10/18/23 12/04/23 tramadol 50 mg tablet 50 mg PO Q6H PRN Pain 10/18/23 12/04/23 trazodone 50 mg tablet 50 mg PO HS 10/18/23 12/04/23 quetiapine 25 mg tablet 25 mg PO HS 12/04/23 12/04/23 Previous Rx's Medication Instructions Recorded famotidine 20 mg tablet 20 mg PO HS PRN heartburn #0 tabs 10/25/23 pantoprazole 40 mg tablet,delayed 40 mg PO DAILY #30 tabs 10/25/23 release Results & Data (ED) Vital Signs Vital Signs - 24 hr 12/04/23 14:04 12/04/23 14:33 12/04/23 14:45 Temperature 36.4 C L Temperature Source Temporal Artery Scan Pulse Rate 99 H 91 H Respiratory Rate 20 20 Respiratory Effort / Characteristics Non-Labored Spontaneous Respiratory Depth Normal Normal Respiratory Pattern Blood Pressure 122/74 Blood Pressure [Right Arm] Blood Pressure Mean 90 Blood Pressure Mean [Right Arm] Blood Pressure Position [Right Arm] Pulse Oximetry 97 Oxygen Delivery Method Room Air Sepsis Recent Fever Within 48 Hours No Sepsis New/Unexplained Change in Mental Status No Sepsis Action Taken by Nursing No Action Required 12/04/23 16:00 Temperature Temperature Source Pulse Rate Respiratory Rate 20 Respiratory Effort / Characteristics Non-Labored Spontaneous Respiratory Depth Normal Respiratory Pattern Regular Blood Pressure Blood Pressure [Right Arm] 141/74 H Blood Pressure Mean Blood Pressure Mean [Right Arm] 96 Blood Pressure Position [Right Arm] Lying Pulse Oximetry 98 Oxygen Delivery Method Room Air Sepsis Recent Fever Within 48 Hours Sepsis New/Unexplained Change in Mental Status Sepsis Action Taken by Nursing Laboratory Data 12/05/23 06:00 12/05/23 06:00 Lab Results 12/04/23 12/04/23 Range/Units 14:16 15:13 WBC 15.17 H (4.8-10.8) K/ul RBC 5.23 (4.20-5.40) M/uL Hgb 14.7 (12.0-16.0) g/dl Hct 44.6 (37.0-47.0) % MCV 85.3 (80.0-100.0) fL MCH 28.1 (25.0-34.0) pg MCHC 33.0 (32.0-36.0) g/dL RDW Std Deviation 45.2 (36.4-46.3) fL RDW Coeff of Estrella 14.6 H (11.5-14.5) % Plt Count 317 (130-400) K/uL MPV 8.7 L (9.4-12.4) fL Immature Gran % (Auto) 0.6 % Neut % (Auto) 70.2 % Lymph % (Auto) 18.1 % [place] % (Auto) 9.6 % Eos % (Auto) 0.6 % Baso % (Auto) 0.9 % Neut # (Auto) 10.64 H (1.40-6.50) K/uL Lymph # (Auto) 2.75 (1.20-3.40) K/uL [place] # (Auto) 1.46 H (0.11-0.59) K/uL Eos # (Auto) 0.09 (0.00-0.50) K/uL Baso # (Auto) 0.14 (0.00-0.20) K/uL Immature Gran # (Auto) 0.09 (0.01-0.20) K/uL Sodium 139 (136-145) mmol/L Potassium 3.4 L (3.5-5.1) mmol/L Chloride 103 (98-107) mmol/L Carbon Dioxide 28 (21-32) mmol/L Anion Gap 8 (3-11) BUN 14 (6-23) mg/dl Creatinine 0.57 L (0.6-1.2) mg/dl Est Cr Clr Drug Dosing Not Reportable eGFR 90.11 BUN/Creatinine Ratio 24.6 H (10-20) Glucose 132 H (70-99(Fasting)) mg/dl Lactate 1.6 (0.4-2.0) mmol/L Calcium 9.8 (8.6-10.3) mg/dl Magnesium 1.8 (1.7-2.4) mg/dl Total Bilirubin 0.5 (0.2-1.0) mg/dl AST 15 (13-39) U/L ALT 14 (7-52) U/L Alkaline Phosphatase 65 (34-104) U/L Troponin I High Sens 7.4 (0-14) pg/ml Total Protein 7.3 (6.0-8.3) gm/dl Albumin 4.2 (3.4-5.0) gm/dl Globulin 3.1 (2.5-4.0) gm/dl Albumin/Globulin Ratio 1.4 (0.9-2) TSH 0.594 (0.300-4.500) uIu/ml Administered Medications Amlodipine Besylate (Amlodipine Besylate 5 Mg Tab) 5 mg PO DAILY ROSEANN Stop: 01/04/24 08:59 Last Admin: 12/05/23 09:42 Dose: 5 mg Documented By: BLANQUITA Atorvastatin Calcium (Atorvastatin 10 Mg Tab) 10 mg PO DAILY ROSEANN Stop: 01/04/24 08:59 Last Admin: 12/05/23 11:10 Dose: 10 mg Documented By: BLANQUITA Fluticasone Furoate (Fluticasone Furoate 200mcg 14 Puffs/Inhaler) 1 puffs INH DAILY ROSEANN Stop: 01/04/24 08:59 Last Admin: 12/05/23 09:42 Dose: 1 puffs Documented By: BLANQUITA Lactobacillus Acidophilus (Advanced Probiotic 625 Mg Capsule) 1,250 mg PO DAILY ROSEANN Stop: 01/03/24 21:07 Last Admin: 12/05/23 09:41 Dose: 1,250 mg Documented By: Admin: 12/04/23 22:17 Dose: 1,250 mg Documented By: RODY Lisinopril (Lisinopril 20 Mg Tab) 20 mg PO DAILY ROSEANN Stop: 01/04/24 08:59 Last Admin: 12/05/23 09:42 Dose: 20 mg Documented By: BLANQUITA Pantoprazole Sodium (Pantoprazole 40 Mg Tab) 40 mg PO DAILY ROSEANN Stop: 01/04/24 08:59 Last Admin: 12/05/23 09:42 Dose: 40 mg Documented By: BLANQUITA Discontinued Medications Ceftriaxone Sodium (Rocephin) 2,000 mg in 50 mls @ 100 mls/hr IV NOW STA Stop: 12/04/23 17:02 Last Infusion: 12/04/23 17:35 Dose: Infused Documented By: Admin: 12/04/23 16:55 Dose: 100 mls/hr Documented By: KACEY Lactated Ringer's (Lr) 1,000 mls @ 80 mls/hr IV .[id number] ROSEANN Stop: 12/05/23 06:29 Last Infusion: 12/05/23 06:22 Dose: Infused Documented By: Admin: 12/04/23 17:52 Dose: 80 mls/hr Documented By: LONA Olanzapine (Olanzapine 10 Mg/2.1 Ml Sdv) 2.5 mg IM NOW STA Stop: 12/04/23 23:07 Last Admin: 12/04/23 23:18 Dose: 2.5 mg Documented By: RODY Potassium Chloride (Potassium Chloride Crtab 20 Meq Tabcr) 40 meq PO NOW STA Stop: 12/04/23 18:45 Last Admin: 12/04/23 18:55 Dose: 40 meq Documented By: KACEY Imaging Data Radiologist's Impression: Chest X-Ray 12/04/23 14:05 XR chest 1V portable CLINICAL HISTORY: weakness, confusion TECHNIQUE: Single frontal radiograph of the chest was obtained. Comparison: Comparison is made to chest radiograph 10/29/2023 FINDINGS: No lines and tubes are seen. The cardiomediastinal silhouette is normal. The lungs are clear. No evidence of pleural effusion or pneumothorax. IMPRESSION: No acute chest disease. ACT 112: Negative or not required by law. Electronically signed by: Julian Culp M.D. 12/04/2023 2:[address] 12/04/23 14:45 CT head/brain wo con CLINICAL HISTORY: 83 years-old Female with incr confusion, hx SDH. Acutely altered mental status TECHNIQUE: Multiple axial CT images of the head were obtained without contrast. A dose lowering technique was utilized adhering to the principles of ALARA. CT DOSE: 625.8 mGy.cm COMPARISON: 10/29/2023 FINDINGS: No acute intracranial hemorrhage, midline shift, intracranial mass, acute hydrocephalus, territorial ischemia or abnormal extra-axial collection. Involutional changes with chronic microvascular ischemic disease. Unchanged prominence of the ventricles, likely on an ex vacuo basis. The calvarium is intact. The paranasal sinuses, mastoid air cells, and middle ear cavities are clear. IMPRESSION: 1. No acute intracranial abnormality. 2. Unchanged appearance of the brain. ACT 112: Negative or not required by law. The above report was generated using voice recognition software. It may contain grammatical, syntax or spelling errors. Electronically signed by: Jem Watson M.D. 12/04/2023 3:55 PM Discharge Plan Visit Data Chief Complaint: Weakness Stated Complaint: HYPERTENSION, LT LEAN, CONFUSION, UTI ED Provider: Jeni Slater Discharge Problem: Altered mental status, Acute UTI (urinary tract infection) Patient Disposition: Admitted As Inpatient Discharge Instructions Interventions: ED Discharge Assessment Last Done: 12/04/23 20:44
[2023-12-04 15:01] LABS: Thyroid Stimulating Hormone 0.594 uIu/ml (0.300-4.500)
[2023-12-04 15:49] LABS: Adenovirus PCR Not Detected (NotDetected); Bordetella parapertussis PCR Not Detected (NotDetected); Bordetella pertussis PCR Not Detected (NotDetected); Chlamydia pneumoniae PCR Not Detected (NotDetected); Coronavirus 229E PCR Not Detected (NotDetected); Coronavirus CoV-2 (COVID19)PCR Not Detected (NotDetected); Coronavirus HKU1 PCR Not Detected (NotDetected); Coronavirus NL63 PCR Not Detected (NotDetected); Coronavirus OC43PCR Not Detected (NotDetected); Human Metapneumovirus PCR Not Detected (NotDetected); Influenza A PCR Not Detected (NotDetected); Influenza B PCR Not Detected (NotDetected); Mycoplasma pneumoniae PCR Not Detected (NotDetected); Parainfluenza Virus 1 PCR Not Detected (NotDetected); Parainfluenza Virus 2 PCR Not Detected (NotDetected); Parainfluenza Virus 3 PCR Not Detected (NotDetected); Parainfluenza Virus 4 PCR Not Detected (NotDetected); Respiratory Syncytial VirusPCR Not Detected (NotDetected); Rhinovirus/Enterovirus PCR Not Detected (NotDetected)
--- NOTE | 2023-12-04 15:56 | CT Scan Report ---
CT head/brain wo con CLINICAL HISTORY: 83 years-old Female with incr confusion, hx SDH. Acutely altered mental status TECHNIQUE: Multiple axial CT images of the head were obtained without contrast. A dose lowering tech nique was utilized adhering to the principles of ALARA. CT DOSE: 625.8 mGy.cm COMPARISON: 10/29/2023 FINDINGS: No acute intracranial hemorrhage, midline shift, intracranial mass, acute hydrocephalus, territorial ischemia or abnormal extra-axial collection. Involutional changes with chronic microvascular ischemic disease. Unchanged prominence of the ventricles, likely on an ex vacuo basis. The calvarium is intact. The paranasal sinuses, mastoid air cells, and middle ear cavities are clear . IMPRESSION: 1. No acute intracranial abnormality. 2. Unchanged appearance of the brain. ACT 112: Negative or not required by law. The above report was generated using voice recognition software. It may contain grammatical, syntax o r spelling errors. Electronically signed by: Jem Watson M.D. 12/04/2023 3:55 PM
[2023-12-04 16:19] LABS: Appearance Urine Cloudy (Clear); Bacteria Urine Automated 4+ (None Seen); Bilirubin Urine Negative (Negative); Blood Urine Negative (Negative); Cast Urine Automated 0-2 /lpf (0-2); Color Urine Yellow; Epithelial Cell Urine Auto 0-2 /hpf (0-2); Glucose Urine UA Negative (Negative); Ketones Urine Negative (Negative); Leukocyte Esterase Urine 2+ (Negative); Nitrite Urine Negative (Negative); Protein Urine Trace (Negative); RBC Urine Automated 0-2 /hpf (0-2); Specific Gravity Urine 1.016 (1.000-1.030); Urobilinogen Urine Negative (Negative); WBC Urine Automated >50 /hpf (0-5)
[2023-12-04] MEDS: cefTRIAXone SODIUM 2,000 MG/50 ML BAG IV STA (16:55)
--- NOTE | 2023-12-04 17:00 | History & Physical Report ---
Date of Service December 04, 2023 Assessment & Plan (1) Acute UTI (urinary tract infection): Plan Cherelle Sherman is an 83y/o F with PMHx significant for primary hyperparathyroidism, dyslipidemia, prediabetes, asthma, aortic ectasia, HTN, mild mitral regurgitation, diastolic dysfunction, IBS, GERD with esophagitis, CKD stage III, incomplete bladder emptying, osteoporosis, mild dementia, peripheral neuropathy, Sjogren's syndrome, insomnia and history of B-cell lymphoma who presented to the ED for evaluation secondary to increased confusion/hallucinations and concern for UTI. Patient's son, Grant, notes that she has been acting more confused over the past few days. Mentions she has been experiencing some hallucinations as well. He reports that this usually occurs when she has a UTI. She has dementia at baseline, however she is not normally so confused and hallucinatory. Patient has been otherwise feeling fine. She currently lives at home alone with daily caregiver/racking machine operator support from 9AM to 8PM. Grant lives next door and monitors her closely throughout the night when the caregivers are not there. Acute UTI: No evidence of sepsis. WBC 15k. UA infected w/ 4+ bacteria. S/p 2g IV Rocephin in the ED. Will continue w/ IV Rocephin for now pending urine culture results. Gentle IVF, probiotic added on. Hypokalemia: K+ 3.4 on admission, repleted w/ 40mEq po KCl. Continue to monitor her electrolytes and replete PRN. Dementia, Insomnia: Increased confusion/hallucinations likely secondary to her UTI as per above. RVP negative. Head CT negative. CXR negative. Delirium precautions in place. Continue Seroquel, hold trazodone for now. Other Chronic Medical Conditions: HTN, dyslipidemia, asthma, GERD --> Can continue home medications for these specific conditions. DVT Prophylaxis: SCDs/TEDs for now ISO recent subdural hematoma last month. Code Status: FULL CODE - Per discussion with Grant over the phone. PCP: Kathy Sweeney MD Disposition: Admit to Med/Surg + Telemetry Patient seen in collaboration with Dr. Aaron. Please see addendum. I spent a total of 60 minutes coordinating, documenting, and providing care for this patient excluding time spent in the performance of separately billed services. This included personally reviewing all current laboratories and imaging studies, medical reconciliation, outpatient chart review and discussion with specialists. This chart was completed in part utilizing Speech Voice Recognition Software. Grammatical errors, random word insertions, pronoun errors, and incomplete sentences are an occasional consequence of this system due to software limitations, ambient noise, and hardware issues. Any formal questions or concerns about the content, text, or information contained within the body of this dictation should be directly addressed to the provider for clarification. History of Present Illness Chief Complaint: Confusion/Hallucinations - Concern for UTI Primary Care Provider: MD Cherelle Kurtz is an 83y/o F with PMHx significant for primary hyperparathyroidism, dyslipidemia, prediabetes, asthma, aortic ectasia, HTN, mild mitral regurgitation, diastolic dysfunction, IBS, GERD with esophagitis, CKD stage III, incomplete bladder emptying, osteoporosis, mild dementia, peripheral neuropathy, Sjogren's syndrome and history of B-cell lymphoma who presented to the ED for evaluation secondary to increased confusion/hallucinations and concern for UTI. History obtained primarily via conversation with patient's son (Grant) over the phone and associated chart review due to the patient's mental status. Patient was recently admitted under our service (10/18/2023-10/25/2023) with possible ischemic colitis and esophagitis. She was then seen again in the ED on 10/29/2023 and found to have an acute subdural hematoma in addition to right- sided rib fractures following a fall. She was therefore transferred to [facility] via [facility] for admission (10/29/2023-). She was started on Keppra for seizure prevention. She was also noted to have alterations of the skin on the right heel and right great toe which were monitored by wound care while she was hospitalized. Several incidental findings were noted on admission including heterogeneous density of the thyroid gland with the larger nodule measuring up to 2.0 cm at the right thyroid lobe. She was also treated with Zosyn for sigmoid colitis and transitioned to ciprofloxacin and Flagyl. ID was consulted and recommended discontinuation of the antibiotics. Post-discharge, the patient spent two and a half weeks at [place] before being transitioned home with 24/7 support. Patient's son, Gratn, notes that she has been acting more confused over the past few days. Mentions she has been experiencing some hallucinations as well. He reports that this usually occurs when she has a UTI. She has dementia at baseline, however she is not normally so confused and hallucinatory. No fevers reported. Patient has been otherwise feeling fine. She currently lives at home alone with daily caregiver/racking machine operator support from 9AM to 8PM. Grant lives next door and monitors her closely throughout the night when the caregivers are not there. She is also currently participating in home PT/OT and speech therapy. Grant reports that she has been rather restless lately and has not been sleeping well. She was recently started on Seroquel and he has yet to see a change in her sleeping habits. Per [facility] chart review, it appears that the patient has fallen out of bed almost daily since being home from [place] according to documentation regarding a conversation the physical therapist (Geovanna Eduardo) had with the on-call nursing line today. Seems patient has been increasingly confused since her discharge from [place] and PT staff noticed that her urine has been darker with a notable foul odor since 11/30/2023. Patient wishing to go home soon. Explained to her that she requires admission until her UTI is appropriately treated. Patient understands that she has a UTI that needs to be treated. She denies any SOB, chest pain or abdominal pain. Mentions that she used the restroom in the ED without issue. Remembers that her son was present at bedside and just recently left to go home. Allergies Allergy/AdvReac Type Severity Reaction Status Date / Time aspirin Allergy Mild lip sweling Verified 04/28/22 11:25 Penicillins Allergy Mild UNKNOWN Verified 04/28/22 11:26 diphenhydramine Allergy Edema of Verified 04/28/22 11:25 [From Benadryl] face, lips, tongue ibuprofen Allergy edema of Verified 04/28/22 11:25 face, lips, tongue red dye Allergy Edema of Verified 04/28/22 11:25 face, lips & tongue. Hives Home Medications Medication Instructions Recorded Confirmed Type albuterol sulfate 90 mcg/actuation 2 inh inhalation Q4H PRN Shortness 10/18/23 12/04/23 History aerosol inhaler Of Breath Or Wheezing amlodipine 5 mg tablet 5 mg PO DAILY 10/18/23 12/04/23 History atorvastatin 10 mg tablet 10 mg PO DAILY 10/18/23 12/04/23 History estradiol 0.01% (0.1 mg/gram) 1 applic vaginal UD 10/18/23 12/04/23 History vaginal cream fluticasone propionate 110 2 puff inhalation BID 10/18/23 12/04/23 History mcg/actuation HFA aerosol inhaler lisinopril 20 mg tablet 20 mg PO DAILY 10/18/23 12/04/23 History meclizine 25 mg tablet 25 mg PO TID PRN Dizziness Or 10/18/23 12/04/23 History Vertigo montelukast 10 mg tablet 10 mg PO HS 10/18/23 12/04/23 History tramadol 50 mg tablet 50 mg PO Q6H PRN Pain 10/18/23 12/04/23 History trazodone 50 mg tablet 50 mg PO HS 10/18/23 12/04/23 History famotidine 20 mg tablet 20 mg PO HS PRN heartburn #0 tabs 10/25/23 12/04/23 Rx pantoprazole 40 mg tablet,delayed 40 mg PO DAILY #30 tabs 10/25/23 12/04/23 Rx release quetiapine 25 mg tablet 25 mg PO HS 12/04/23 12/04/23 History Past Med/Surg History Problem List Acute UTI (urinary tract infection) (Acute) Altered mental status (Acute) Elevated lactic acid level (Acute) Colitis (Acute) Leukocytosis (Acute) Abdominal pain (Acute) Colitis Vasovagal episode UTI (urinary tract infection) Leukocytosis (Acute) Bradycardia (Acute) Acute UTI (Acute) Syncope (Acute) Asthma (Acute) hx-"no problems for a long time" Bradycardia Syncope and collapse Hyperparathyroidism B-cell lymphoma Hypertensive urgency Confusion (Acute) Generalized weakness (Acute) Acute UTI (urinary tract infection) (Acute) Medical History Elevated procalcitonin Osteopenia GERD (gastroesophageal reflux disease) Hyperlipidemia Hypertension Surgical History History of cataract surgery RT History of laparotomy for removal ectopic History of esophagogastroduodenoscopy (EGD) Hx of colonoscopy Social History Smoking Status: Never smoker Second Hand Exposure: No; Do You Dip or Chew Tobacco: No; Hx Alcohol Use: No Hx Substance Use: No Preferred Language: Danish Communication Ability: Effective Silica Filter Operator Required: No Beliefs That Will Affect Care: None Current Living Situation: Alone Current Living Situation Comment: Son lives next door and adult granddaughter also checks on her Feels Safe at Home: Yes Assistive Devices: Cane and Walker Review of Systems Review of Systems: At least ten systems reviewed and negative, except as noted in the HPI. Physical Exam Physical Exam: General: WD/WN, vitals as above, NAD, laying down in bed, very pleasantly confused. A+O to conversation with frequent redirection. HEENT: Normocephalic, atraumatic. PERRL, conjunctivae normal, anicteric sclerae. External ear and nose normal, oropharynx normal. Respiratory: Normal respiratory effort, lungs clear to auscultation, no wheeze, rales, rhonchi. No accessory muscle use. Cardiovascular: Regular rate, rhythm, no murmur, normal peripheral pulses, no BLE edema. Vessels: No JVD. Abdomen/GI: Normal bowel sounds, soft, nontender, no hepatosplenomegaly. Extremities/Musculoskeletal: No cyanosis or clubbing, extremities motor strength intact, moves all extremities. Neurologic: EOMI, no focal deficits, CN's II-XI not formally tested but appear grossly intact bilaterally. Skin: No rashes, normal color, warm/dry. Healing skin alterations on the R great toe and R heel region (no skin breakdown). Results & Data Results & Data Vital Signs (Past 12 Hours) Vital Signs Temp Pulse Resp BP BP Pulse Ox O2 Del Method 12/04/23 16:00 20 141/74 H 98 Room Air 12/04/23 14:45 91 H 12/04/23 14:33 20 12/04/23 14:04 36.4 C L 99 H 20 122/74 97 Room Air Laboratory Results Short CBC 12/04/23 Range/Units 14:16 WBC 15.17 H (4.8-10.8) K/ul Hgb 14.7 (12.0-16.0) g/dl Hct 44.6 (37.0-47.0) % Plt Count 317 (130-400) K/uL BMP 12/04/23 14:16 Sodium 139 Potassium 3.4 L Chloride 103 Carbon Dioxide 28 BUN 14 Creatinine 0.57 L Glucose 132 H Calcium 9.8 Liver Function 12/04/23 Range/Units 14:16 Total Bilirubin 0.5 (0.2-1.0) mg/dl AST 15 (13-39) U/L ALT 14 (7-52) U/L Alkaline Phosphatase 65 (34-104) U/L Albumin 4.2 (3.4-5.0) gm/dl Urine 12/04/23 Range/Units Unknown Urine Color Yellow Urine Appearance Cloudy A (Clear) Urine pH 6.0 (4.5-7.5) Ur Specific [place] 1.016 (1.000-1.030) Urine Protein Trace H (Negative) Urine Glucose (UA) Negative (Negative) Diagnostic Findings Chest X-Ray 12/04/23 14:05 XR chest 1V portable CLINICAL HISTORY: weakness, confusion TECHNIQUE: Single frontal radiograph of the chest was obtained. Comparison: Comparison is made to chest radiograph 10/29/2023 FINDINGS: No lines and tubes are seen. The cardiomediastinal silhouette is normal. The lungs are clear. No evidence of pleural effusion or pneumothorax. IMPRESSION: No acute chest disease. ACT 112: Negative or not required by law. Electronically signed by: Julian Culp M.D. 12/04/2023 2:[address] 12/04/23 14:45 CT head/brain wo con CLINICAL HISTORY: 83 years-old Female with incr confusion, hx SDH. Acutely altered mental status TECHNIQUE: Multiple axial CT images of the head were obtained without contrast. A dose lowering technique was utilized adhering to the principles of ALARA. CT DOSE: 625.8 mGy.cm COMPARISON: 10/29/2023 FINDINGS: No acute intracranial hemorrhage, midline shift, intracranial mass, acute hydrocephalus, territorial ischemia or abnormal extra-axial collection. Involutional changes with chronic microvascular ischemic disease. Unchanged prominence of the ventricles, likely on an ex vacuo basis. The calvarium is intact. The paranasal sinuses, mastoid air cells, and middle ear cavities are clear. IMPRESSION: 1. No acute intracranial abnormality. 2. Unchanged appearance of the brain. ACT 112: Negative or not required by law. The above report was generated using voice recognition software. It may contain grammatical, syntax or spelling errors. Electronically signed by: Jem Watson M.D. 12/04/2023 3:55 PM Medications Administered Discontinued Medications Ceftriaxone Sodium (Rocephin) 2,000 mg in 50 mls @ 100 mls/hr IV NOW STA Stop: 12/04/23 17:02 Last Admin: 12/04/23 16:55 Dose: 100 mls/hr Documented By: NJM Code Status & VTE Plan Code Status FULL CODE Supervising Physician Co-Signing Physician Notes Attending addendum: The patient was seen and examined in the emergency room in presence of the She has significant dementia on top of multiple comorbid conditions Was brought in with increasing weakness, confusion and hallucination No significant distress at rest and noted to have another UTI without any sepsis On examination No apparent distress at rest Afebrile and hemodynamically stable Chestclear to auscultate bilaterally HeartS1-S2, regular Abdomenbenign Extremitiesno edema CNScommunicating reasonably. Moves all extremities without any focal deficit Her admission labs, EKG and imaging studies reviewed Recent fall with subdural hematoma and was treated with [facility] Repeat CT today remains unremarkable Noted to have UTI which is likely cause for her symptoms Started with intravenous ceftriaxone and await culture and sensitivity She wants to go home and was advised that she will be discharged home as soon as the UTI is treated appropriately Agree with assessment and plan as outlined above by Alexandria Knutson PA-C take the full responsibility of the care Dr Rosalind Aaron
--- NOTE | 2023-12-04 17:21 | Electrocardiogram Report ---
Test Reason : Blood Pressure : */* mmHG Vent. Rate : 100 BPM Atrial Rate : 100 BPM P-R Int : 128 ms QRS Dur : 76 ms QT Int : 364 ms P-R-T Axes : 77 -45 55 degrees QTcB Int : 469 ms Normal sinus rhythm Left axis deviation possible Inferior infarct , age undetermined Poor R wave progression, consider anterior NH vs. lead placement vs. LVH Abnormal ECG When compared with ECG of 29-Oct-2023 10:03, No significant change was found Confirmed by Renato Rubin ([id number]) on 12/04/2023 5:21:29 PM Referred By: Confirmed By: Renato Rubin
[2023-12-04] MEDS: LACTATED RINGER'S 1,000 ML IV SCH (17:52)
[2023-12-04] MEDS: POTASSIUM CHLORIDE CRTAB 20 MEQ TABCR PO STA (18:55)
[2023-12-04] MEDS ORDERED: ALUMINUM/MAGNESIUM SUSP 30 ML UDC PO PRN (21:08)
[2023-12-04] MEDS ORDERED: POLYETHYLENE (MIRALAX) 17 GM PACK PO PRN (21:08)
[2023-12-04] MEDS ORDERED: ALBUTEROL HFA 8 GM INHALER INH PRN (21:34)
--- OUTSIDE RECORDS SUMMARY | 2023-12-04 22:07 | External Medical Summary | Summary of Care ---
Author Name Unknown Organization [facility] Address [address] [place] [address] Phone [phone] Care Team Providers Care Small Wind Energy Installer Name Role Phone Kathy Sweeney MD Primary Care Provider [phone] Reason for Visit * Reason Onset Date Comments Hospital Follow-Up 11/24/2023 [facility] ([facility]) Encounter Details Date Type Department Care Team (Late st Contact Info) Description 11/24/[address] [address] Emerita Roy, JOSE DANIEL [facility] Follow-Up ([facility] (SNF)) Allergies Active Allergy Reactions Criticality Noted Date Comments Aspirin Anaphylaxis High 12/21/2016 Lip swelling Diphenhydramine Hcl Edema face/lips/tongue High 08/07 Ibuprofen Edema face/lips/tongue High 10/08/2002 Penicillins Unknown 10/08/2002 Red Dye Edema face/lips/tongue,Hives High 05/23/2023 documented as of this encounter (statuses as of 11/24/2023) Medications Medication Sig Dispensed Refills Start Date End Date Status polyethylene glycol 3350 (MIRALAX) 255 gram powderIndications:Irr itable bowel syndrome with constipation Take 17 g by mouth as needed for Constipation. Dissolve one heaping tablespoon in 8 ounces of water or juice. 1 Bottle 2 12/25/2018 Active Atorvastatin Calcium 10 MG Oral Tablet (Lipitor)Indications: Mixed hyperlipidemia Take 1 Tablet by mouth in the morning. 90 Tablet 3 12/07/2022 Active traZODone HCl 50 MG Oral Tablet (Desyrel)Indications: Insomnia TAKE 1 TABLET AT BEDTIME 90 Tablet 3 01/10/2023 Active Lactobacillus Probiotic Oral Tablet Take 1 Tablet by mouth every evening. 03/20/2023 Active Cetirizine HCl 10 MG Oral Tablet (ZyrTEC) TAKE 1 TABLET EVERY MORNING 90 Tablet 3 06/21/2023 Active Famotidine 20 MG Oral Tablet (Pepcid)Indications:G astroesophageal reflux disease with esophagitis, unspecified whether hemorrhage Take 1 Tablet by mouth at bedtime. 30 Tablet 11 06/20/2023 Active Estradiol 0.1 MG/GM Vaginal Cream (Estrace)Indications: Recurrent UTI,Atrophic vulvovaginitis Administer 1 g into and around the vagina 1-3 times per week 42.5 g 3 06/20/2023 Active amLODIPine Besylate 5 MG Oral Tablet (Norvasc)Indications: HTN, goal below 140/90,Intermittent lightheadedness TAKE 1 TABLET EVERY MORNING 90 Tablet 2 09/26/2023 Active Fluticasone Propionate HFA 110 MCG/ACT Inhalation AerosolIndications:Mi ld persistent asthma without complication Inhale 2 Puffs by mouth in the morning and 2 Puffs before bedtime. 12 g 1 10/11/2023 Active Pantoprazole Sodium 40 MG Oral Tablet Delayed Release (Protonix) Take 1 Tablet by mouth every evening. Active Montelukast Sodium 10 MG Oral Tablet (Singulair)Indication s:Allergic rhinitis due to pollen, unspecified seasonality TAKE 1 TABLET BEFORE BEDTIME 90 Tablet 3 10/28/2023 Active Melatonin 1 MG Oral Tablet Take 2 Tablets by mouth at bedtime. 30 Tablet 11/07/2023 Active Acetaminophen 325 MG Oral Tablet (Tylenol) Take 3 Tablets by mouth in the morning and 3 Tablets at noon and 3 Tablets before bedtime. 30 Tablet 11/07/2023 Active Fluticasone Furoate 200 MCG/ACT Inhalation Aerosol Powder Breath Activated (ARNUITY ellipta) Inhale 1 Puff by mouth every evening. 30 Each 11/07/2023 Active Lidocaine 4 % External Patch (Aspercreme) Place 1 Patch over 12 hours topically on the skin in the morning. 30 Patch 11/08/2023 Active Sennosides 8.6 MG Oral Tablet (Senokot) Take 2 Tablets by mouth in the morning and 2 Tablets before bedtime. 30 Tablet 11/07/2023 Active Albuterol Sulfate HFA 108 (90 Base) MCG/ACT Inhalation Aerosol SolutionIndications:M ild persistent asthma without complication USE 2 INHALATIONS ORALLY EVERY 4 HOURS NEEDED FORWHEEZING 54 g 3 11/14/2023 Active documented as of this encounter (statuses as of 11/24/2023) Active Problems Problem Noted Date Diagnosed Date Atypical chest pain 11/22/2023 Cellulitis of great toe, left 11/22/2023 Elevated lactic acid level 11/22/2023 Elevated procalcitonin 11/22/2023 Shortness of breath 11/22/2023 Gastroesophageal reflux disease 11/22/2023 Closed fracture of multiple ribs of right side 1 SDH (subdural hematoma) 10/29/2023 Chest heaviness 10/11/2023 Altered mental status 10/11/2023 Incomplete bladder emptying 10/04/2023 Mild dementia 10/03/2023 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 Colitis 05/07/2022 Hyperparathyroidism, primary 11/12/2021 Stage 3a chronic kidney disease 08/11/2020 Mild mitral regurgitation 04/22/2020 Diastolic dysfunction 04/22/2020 High risk for fracture due to osteoporosis by DE XA scan 11/05/2019 Prediabetes 01/14/2019 Overview: Per Prediabetes protocol 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 12/25/2018 Abdominal pain, lower 11/05/20152017 Chronic constipation 11/05/2015 018 Hyperlipidemia with target LDL less than 130 3 12/21/2016 Overview: ICD-10 update of inactive term Osteoporosis 10/29/2010 05/30/2013 Dyslipidemia, goal LDL below 130 07/26/2010 12/26/2011 Insomnia 07/26/2010 05/20/2022 Overview: ICD-10 update of inactive term HYPERTENSION NOS 06/07/2004 07/26/2010 Asthma with severity to be determined 10/08/2002 12/20/2010 Overview: ICD-10 update of inactive term Allergic rhinitis 10/08/2002 10/03/2023 Esophageal reflux 10/08/2002 05/30/2013 Hiatal hernia 12/25/2018 Overview: treated with surgery documented as of this encounter (statuses as of 11/24/2023) Immunizations Name Administration Dates Next Due COVID-19 mRNA, LNP-s, No Pre serve, 2-Dose Series (Digilab) 04/21/2020,03/31/2020 Pneumococcal Conjugate Vacc, 13 Valent (Prevnar) 09/02/2014 Pneumococcal Polysaccharide PPV23 (Pneumovax) 08/30/2010 Seasonal Influenza Vac., MDV , IM, 0.5 mL (Fluzone) 10/22/2013,10/23/2012,11/23/2011,10/29 Seasonal Influenza, PF, 6 M & above, IM , (FluLaval or Fluzone) 10/13/2020,10/29/2019,12/07/2017,12/01 Seasonal Influenza, Quadriva lent Hd (Fluzone Hd) 11/22/2022,11/12/2021 Seasonal Influenza, Quadriva lent, No Preserve, IM 12/24/2015,12/15/2014 Seasonal Influenza, Trivalen t, Adjuvanted, 65+ YRS, PF, (Fluad) 10/31/2018 TD - Tetanus/Diptheria (ADULT) 07/16/2010 TDAP (age 10 and older)(Boostrix) 11/07/2016 Varicella Zoster Vaccine (Adult) 07/25/2007 Zoster Vaccine Recombinant (Shingrix) 11/21/2019 ,09/13/2019 documented as of this encounter Social History Tobacco Use Types Packs/Day Years Used Date Smoking Tobacco: Former Cigarettes 1 5 0 02/06/1966 - 02/06/1971 Smokeless Tobacco: Never Alcohol Use Standard [...] money to get more. Never true 05/06/2022 Personal Safety Answer Date Recorded Do you feel unsafe or have concerns for your saf ety? No 10/29/2023 Do you have concerns for you r family's safety? (Household - for ages 0-17 years) Not on file 10/29/2023 Utilities Answer Date Recorded Do you have trouble paying y our heating, water, or electric bill? No 10/29/2023 Is your family able to pay t he heat, water, or electric bill? (Household - for ages 0-17 years) Not on file 10/29/2023 Does your family have access to good internet? (Household - for ages 0-17 years) Not on file 10/29/2023 Transportation Needs Answer Date Record ed Do you have trouble getting a ride to medical visits or work? (Adult - for ages 18 years and over) Not on file 10/29/2023 Does your family have a hard time getting a ride to doctors visits? (Household - for ages 0-17 years) Not on file 10/29/2023 Has lack of transportation k ept you from medical appointments, meetings, work, or from getting things needed for daily living? Check all that apply. No 10/29/2023 Do you (or your family) have trouble finding or paying for a ride (transportation)? (Household - for ages 0-17 years) Not on file 10/29/2023 Housing Stability Answer Date Recorded Do you currently live in a s helter or have no steady place to sleep at night? (Adult - for ages 18 years and over) Not on file 10/29/2023 Do you think you are at risk of becoming homeless? (Adult - for ages 18 years and over) Not on file 10/29/2023 Does your family worry about paying for your home or becoming homeless? (Household - for ages 0-17 years) Not on file 0 10/29/2023 Are you homeless or worried that you might be in the future? No 10/29/2023 Are you (or your family) latasha eless or worried that you might be in the future? (Household - for ages 0-17 years) Not on file Food Insecurity Answer Date Recorded Do you need food for this week? No 10/29/2023 Are you able to get enough f ood for your family? (Household - for ages 0-17 years) Not on file 10/29/2023 Does your family need food t his week? (Household - for ages 0-17 years) Not on file 10/29/2023 Do you always have enough fo od for your family? (Household - for ages 0-17 years) Not on file 10/29/2023 Sex and Gender Information Value Date Recorded [...] you have serious difficulty h earing? No 10/29/2023 Are you blind or do you have serious difficulty seeing, even when wearing glasses? No 10/29/2023 Do you have serious difficul ty walking or climbing stairs? (5 years old or older) No 10/29/2023 Do you have difficulty dress ing or bathing? (5 years old or older) No 10/29/2023 Because of a physical, menta l, or emotional condition, do you have difficulty doing errands alone such as visiting a doctor s office or shopping? (15 years old or older) No 10/29/19 Cognitive Status Response Date of Assessm ent Because of a physical, menta l, or emotional condition, do you have serious difficulty concentrating, remembering, or making decisions? (5 years old or older) No 10/29/2023 documented as of this encounter Miscellaneous Notes * Telephone Encounter - Emerita Roy RN - 11/24/2023 2:25 PM EDT Transitions of Care Note Reason for Referral:Recent Admission Phone visit for follow up: [facility] #1 Admitted to: [facility] [place], Date: 10/29/2023 Discharged to: [facility], Date: 11/07/2023 Discharged to: Home, with Home Services Date: 11/23/2023 Diagnosis driving hospitalization: Fall/ SDH/ Rib Injury New medication: Tramadol Discontinued medication: Biscodyl, Enoxaparin, Lidocaine patch Attempted Phone Call First Attempt Call Outcome Left Voicemail/Message Emerita Roy RN documented in this encounter Plan of Treatment Upcoming Encounters Date Type Department Care Team (Late st Contact Info) Description 11/28/2023 3:20 PM EDT Office Visit Family Practice [facility] [address] [place] [address] Kathy Sweeney MD [address] [place] [address] 11/29/2023 10:40 AM EDT Telemedicine Neurosurgery, [address] [place] [address] [facility] [place] Traumatic Brain [place] [address] [place] [address] 12/22/2023 11:20 AM EST Office Visit Family Practice [facility] [place] [address] [place] [address] Kathy Sweeney MD [address] [facility] [place] [address] 01/09/2024 10:00 AM EST Laboratory Laboratory [facility] [address] [facility] [place] [phone] [facility] [address] [facility] [place] [address] 01/16/2024 12:30 PM EST Office Visit Hematology/Oncology [facility] [address] [facility] [place] [phone] Bindu Jones MD [address] [facility] [place] [address] 03/21/2024 3:30 PM EST Office Visit Neurology [facility] [address] [place] [address] Abbie Arora PA-C [address] [address] Health Maintenance Due Date Last Done Comments Adult Wellness Visit 09/20/2013 09/20/2012 *BISPHONATE OR OTHER ACCEPTABLE MEDICATION NEEDED FOR OSTEOPOROSIS (REFER TO SMARTSET #1146) 05/09/2022 Albumin/Creatinine Ratio 11/12/2022 11/12/2021, 06/06 Influenza Vaccine (FLU shot) (#1) 2023 11/22/2022, 11/12/2021, 10/13/2020, Additional history exists DXA Scan 11/11/2023 11/10/2021, 10/08, 07/27/2015, Additional history exists HbA1c 11/23/2023 11/22/2022, 0 08/2021, 10/13/2020, Additional history exists GFR 05/21/2024 11/21/2023, 09/2023, 11/07/2023, Additional history exists Depression Screening 06/28/2024 06/29/2023, 09/03/19 CKD PHOS USE SMARTSET 28664 10/31/20242 06/2023, 10/31/2023, 10/30/2023, Additional history exists CKD HGB USE SMARTSET 74574 11/20/202411/20, 11/21/2023, 11/14/2023, Additional history exists Colonoscopy 07/08/2026 07/08/2021, 03/2021, 11/19/2015, Additional history exists DTap/Tdap Vaccines (2 - Td or Tdap) 11/07/2026 11/07/2016, 07/16/2010 Pneumococcal Vaccine: 65+ Years Completed 09/02/2014, 08/30/2010 Zoster Vaccines Completed 11/21/2019, 08/2019, 07/25/2007 COVID-19 Vaccine Discontinued 04/21/2020, 03/31/2020 VITAMIN D LEVEL ONCE IN A LIFETIME-USE SMARTSET# 72622 Completed 10/13/2020, 12/26/2019, 06/21/2018, Additional history exists RETIRED - COLONOSCOPY-EVERY 5 YRS AGES 18-100 Discontinued 07/08/2021, 07/08/2021, 11/19/2015, Additional history exists HPV (Gardasil) Vaccine Aged Out No lo nger eligible based on patient's age to complete this topic Hepatitis B Vaccine Aged Out No longe r eligible based on patient's age to complete this topic MENINGOCOCCAL (MENACTRA/MENVEO) Aged Out No longer eligible based on patient's age to complete this topic documented as of this encounter Medical Devices Implanted Type Area Knife Cutter Device Identifier Shelf Expiration Date Model / Serial / Lot Alloderm 2x4 Sheet [id number] (8 Units) - [id number] Implanted:Qty : 8 on 11/15/2010 at OR [facility] [place] Tissue - Human N/A: Esophagus Allocab 05/06/2012 [id number] / / [id number] documented as of this encounter Advance Directives Documents on File Type Date Recorded Patient Float Builder Expl anation Advance Directives and Living Will 05/05/2020 ADVANCE DIRECTIVE / LIVING WILL Power of Political Cartoonist 05/05/2020 POWER OF A T[employer]NEY [employer] * Full Code (Latest Code Status on File) Date Activated Date Inactivated Comments 10/29/2023 1:57 PM 11/07/2023 7:00 PM This order r eflects the patients wishes and were consensually agreed upon. Question Answer Comments Discussion of Advance Direct thai occurred with: Not Discussed due to patient's condition * Full Code Date Activated Date Inactivated Comments 05/07/2022 10:14 PM 05/09/2022 7:04 PM This order re flects the patients wishes and were consensually agreed upon. Question Answer Comments Discussion of Advance Directives occurred with: Patient And Family * Full Code Date Activated Date Inactivated Comments 11/15/2010 12:58 PM 11/18/2010 7:21 PM This orde r reflects the patients wishes and were consensually agreed upon. * Full Code Date Activated Date Inactivated Comments 11/15/2010 8:42 AM 11/15/2010 12:58 PM This orde r reflects the patients wishes and were consensually agreed upon. Care Teams Small Wind Energy Installer Relationship Specialty Start Date End Date Kathy Sweeney MD [address] [facility] [place] [address] PCP - General Family Medicine 11/22/22 documented as of this encounter
--- OUTSIDE RECORDS SUMMARY | 2023-12-04 22:07 | External Medical Summary | Summary of Care ---
Author Name Unknown Organization [facility] Address [address] [place] [address] Phone [phone] Care Team Providers Care Support Architect Name Role Phone Kathy Sweeney MD Primary Care Provider [phone] Reason for Visit * Reason Onset Date Comments TRIAGE 11/22/2023 Encounter Details Date Type Department Care Team (Late st Contact Info) Description 11/22/2023 Telephone [facility] [place] [address] [place] [address] Services, Count Includes [facility] [address] [place] [address] TRIAGE Allergies Active Allergy Reactions Criticality Noted Date Comments Aspirin Anaphylaxis High 12/21/2016 Lip swelling Diphenhydramine Hcl Edema face/lips/tongue High 08/07 Ibuprofen Edema face/lips/tongue High 10/08/2002 Penicillins Unknown 10/08/2002 Red Dye Edema face/lips/tongue,Hives High 05/23/2023 documented as of this encounter (statuses as of 11/22/2023) Medications Medication Sig Dispensed Refills Start Date [...] as of this encounter (statuses as of 11/22/2023) Active Problems Problem Noted Date Diagnosed Date Closed fracture of multiple ribs of right side 1 SDH (subdural hematoma) 10/29/2023 Chest heaviness 10/11/2023 Altered mental status 10/11/2023 Incomplete bladder emptying 10/04/2023 Mild dementia 10/03/2023 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 Colitis 05/07/2022 Hyperparathyroidism, primary 11/12/2021 Mild mitral regurgitation 04/22/2020 Diastolic dysfunction 04/22/2020 [...] neuropathy 06/19/2013 HTN, goal below 140/90 07/26/2010 Dyslipidemia 06/07/2004 Asthma, mild persistent 10/08/2002 Overview: Per Provider Protocol. documented as of this encounter (statuses as of 11/22/2023) Resolved Problems Problem Noted Date Diagnosed Date Resolved Date Memory change 05/20/2022 10/03/2023 Sepsis without acute organ dysfunction 05/07/2022 05/20/2022 Lactic acidosis 05/07/2022 05/20/2022 History of peptic ulcer disease 11/12/2021 10/03/2023 Stage 3a chronic kidney disease 08/11/2020 03/24/2023 Mixed hyperlipidemia 12/25/2018 024 Leukocytosis 12/25/2018 10/03/2023 [...] as of this encounter (statuses as of 11/22/2023) Immunizations Name Administration Dates Next Due COVID-19 mRNA, LNP-s, No Pre serve, 2-Dose Series (Buzzwire) 04/21/2020,03/31/2020 Pneumococcal Conjugate Vacc, 13 Valent (Prevnar) [...] (15 years old or older) No 10/29/19 24 Cognitive Status Response Date of Assessm ent Because of a physical, menta l, or emotional condition, do you have serious difficulty concentrating, remembering, or making decisions? (5 years old or older) No 10/29/2023 documented as of this encounter Miscellaneous Notes * Telephone Encounter - Masha Menjivar OSA - 11/22/2023 3:14 PM EDT Spoke to son in regards to changing appt with TBI to a video call. I spoke with Douglas Beverly and he stated that it was fine to change to a video appt. Appt has been changed to a video for 11/28 * Telephone Encounter - Ashly Schaefer OSA - 11/22/2023 9:01 AM EDT Neuroscience Phone Call Form- Requested Information from caller: Grant Sherman Who is calling patient son Provider patient is established with: TBI clinic What is the concern or issue they are having: son is asking if appt on 11/28 could be changed to video Phone number for nurse to call back: [phone] documented in this encounter Plan of Treatment Upcoming Encounters Date Type Department Care Team (Late st Contact Info) Description 11/28/2023 3:20 PM EDT Office Visit Family Practice [facility] [address] [place] [address] [address] Kathy Sweeney MD [address] [place] [address] 11/29/2023 10:40 AM EDT Telemedicine Neurosurgery, [address] [address] [place], Traumatic Brain Injury [address] [place] [address] 12/22/2023 11:20 AM EST Office Visit Family Practice [facility] [address] [facility] [address] [place] [address] Kathy Sweeney MD [address] [facility] [place] [address] 01/09/2024 10:00 AM EST Laboratory Laboratory [facility] [address] [facility] [place] [phone] [facility] [address] [facility] [place] [address] 01/16/2024 12:30 PM EST Office Visit Hematology/Oncology [facility] [address] [facility] [place] [phone] Bindu Jones MD [address] [facility] [place] [address] 03/21/2024 3:30 PM EST Office Visit Neurology [facility] [address] [facility] [place] [address] Abbie Arora PA-C [facility] [address] Health Maintenance Due Date Last Done Comments Adult Wellness Visit 09/20/2013 09/20/2012 *BISPHONATE OR OTHER ACCEPTABLE MEDICATION NEEDED FOR OSTEOPOROSIS (REFER TO SMARTSET #1146) 05/09/2022 Influenza Vaccine (FLU shot) (#1) 2023 11/22/2022, 11/12/2021, 10/13/2020, Additional history exists DXA Scan 11/11/2023 11/10/2021, 10/08, 07/27/2015, Additional history exists HbA1c 11/23/2023 11/22/2022, 100 08/2021, 10/13/2020, Additional history exists Depression Screening 06/28/2024 06/29/2023, 09/03/19 15 Albumin/Creatinine Ratio 11/12/2024 11/12/2021, 06/06 GFR 11/20/2024 11/21/2023, 09/2023, 11/07/2023, Additional history exists Colonoscopy 07/08/2026 07/08/2021, 03/2021, 11/19/2015, Additional history exists DTap/Tdap Vaccines (2 - Td or Tdap) 11/07/2026 11/07/2016, 07/16/2010 Pneumococcal Vaccine: 65+ Years Completed 09/02/2014, 08/30/2010 Zoster Vaccines Completed 11/21/2019, 08/2019, 07/25/2007 COVID-19 Vaccine Discontinued 04/21/2020, 03/31/2020 VITAMIN D LEVEL ONCE IN A LIFETIME-USE SMARTSET# 30563 Completed 10/13/2020, 12/26/2019, 06/21/2018, Additional history exists [...] this encounter Medical Devices Implanted Type Area Jewelry Drill Operator Device Identifier Shelf Expiration Date Model / Serial / Lot Alloderm 2x4 Sheet [id number] (8 Units) - [id number] Implanted:Qty : 8 on 11/15/2010 at OR [facility] [place] Tissue - Human N/A: Esophagus LIFE CELL VICENTA 05/06/2012 [id number] / / [id number] documented as of this encounter Advance Directives Documents on File Type Date Recorded Patient Wood Boatbuilder Expl 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 Care Teams Support Architect Relationship Specialty Start Date End Date Kathy Sweeney MD [address] [facility] [place] [address] PCP - General Family Medicine 11/22/22 documented as of this encounter
--- OUTSIDE RECORDS SUMMARY | 2023-12-04 22:07 | External Medical Summary ---
Author Name Unknown Address Unknown Organization K1F[facility] [address] [facility] [place] [id number] Laboratory Report Ordering Provider Test Date Status CELIA GRAY 11/21/2023 06:51:00 Final Observation Date Value Abnormality Reference (Units ) Status SYNC LEUKOCYTES IN BLOOD BY AUTOMATED COUNT 11/21/2023 06:51:00 10.41 4.00-10.80 (K/uL) Final Segs 11/21/2023 06:51:00 68.8 40.0-75.0 (%) Final Lymphs % 11/21/2023 06:51:00 20.0 18.0-42.0 (%) Final Monos 11/21/2023 06:51:00 8.5 1.0-11.0 (%) Final Eosinophils 11/21/2023 06:51:00 1.1 0.0-6.0 (%) Final Basos 11/21/2023 06:51:00 0.9 0.0-2.0 (%) Final Immature Granulocyte, Percent 11/21/2023 06:51:00 0.7 0.0-2.0 (%) Final Absolute Segs 11/21/2023 06:51:00 7.17 1.80-7.70 (K/uL) Final Lymphs, absolute 11/21/2023 06:51:00 2.08 1.00-4.80 (K/ul) Final Monos, Abs 11/21/2023 06:51:00 0.89 0.00-1.10 (K/uL) Final Eos, Abs 11/21/2023 06:51:00 0.11 0.00-0.70 (K/uL) Final Basos, Abs 11/21/2023 06:51:00 0.09 0.00-0.20 (K/uL) Final Immature Granulocytes, Number 11/21/2023 06:51:00 0.07 0.00-0.20 (K/uL) Final Performing Location [facility] - [address] [place] [id number]
--- OUTSIDE RECORDS SUMMARY | 2023-12-04 22:07 | External Medical Summary | Summary of Care ---
Author Name Unknown Organization [facility] Address [address] [place] [address] Phone [phone] Care Team Providers Care Bark Scaler Name Role Phone Kathy Sweeney MD Primary Care Provider [phone] Encounter Details Date Type Department Care Team (Latest Contact Info) Description 11/21/2023 11:17 AM EDT - 11/21/2023 11:59 PM EDT Hospital Encounter Radiology, [place] [address] [place] [address] Arrived Discharge Disposition: Home - Self Care Allergies Active Allergy Reactions Criticality Noted Date [...] mRNA, LNP-s, No Pre serve, 2-Dose Series ([employer] 04/21/2020,03/31/2020 Pneumococcal Conjugate Vacc, 13 Valent [...] No 10/29/2023 documented as of this encounter Plan of Treatment Upcoming Encounters Date Type Department Care Team (Late st Contact Info) Description 11/28/2023 3:20 PM EDT Office Visit [facility] [place] [address] [place] [address] Kathy Sweeney MD [address] [place] [address] 11/29/2023 10:40 AM EDT Office Visit Neurosurgery, [address] [address] [facility] [place] [facility], Traumatic Brain Injury [address] [place] [address] 12/22/2023 11:20 AM EST Office Visit [facility] [place] [address] [place] [address] Kathy Sweeney MD [address] [place] [address] 01/09/2024 10:00 AM EST Laboratory Laboratory [facility] [place] [address] [place] [phone] [place] [facility] [address] [place] [address] 01/16/2024 12:30 PM EST Office Visit Hematology/Oncology [facility] [place] [address] [place] [phone] Bindu Jones MD [address] [place] [address] 03/21/2024 3:30 PM EST [facility] [place] [address] [facility], [place] [address] Abbie Arora PA-C [address] [place] [address] Health Maintenance Due Date Last Done Comments Adult Wellness Visit 09/20/2013 09/20/2012 *BISPHONATE OR OTHER ACCEPTABLE MEDICATION NEEDED FOR OSTEOPOROSIS (REFER TO SMARTSET #1146) 05/09/2022 Influenza Vaccine (FLU shot) (#1) 2023 11/22/2022, 11/12/2021, 10/13/2020, Additional history exists DXA Scan 11/11/2023 11/10/2021, 10/08, 07/27/2015, Additional history exists HbA1c 11/23/2023 11/22/2022, 08/2021, 10/13/2020, Additional history exists Depression Screening [...] D LEVEL ONCE IN A LIFETIME-USE SMARTSET# 25652 Completed 10/13/2020, 12/26/2019, 06/21/2018, Additional history exists [...] this encounter Medical Devices Implanted Type Area Asic Verification Engineer Device Identifier Shelf Expiration Date Model / Serial / Lot Alloderm 2x4 Sheet [id number] (8 Units) - [id number] Implanted:Qty : 8 on 11[place] [facility] [place] - Human N/A: Esophagus [employer] 05/06/2012 [id number] / / [id number] documented as of this encounter Procedures Procedure Name Priority Date/Time Associated Diagnosis Comments XR CHEST 2 VIEWS STAT 11/21/2023 11:2 8 AM EDT Closed fracture of multiple ribs of right side, initial encounter documented in this encounter Results * XR CHEST 2 VIEWS (11/21/2023 11:28 AM EDT) Anatomical Region Laterality Modality Chest Computed Radiogr aphy 11/21/2023 11:5 8 AM EDT Impressions 11/21/2023 11:55 AM EDT IMPRESSION No active disease. Narrative 11/21/2023 11:55 AM EDT EXAM XR CHEST 2 VIEWS - 11/21/2023 11:28 am HISTORY "f/u rib fractures" TECHNIQUE Frontal and lateral views of the chest were obtained. COMPARISON 10/29/2023 FINDINGS The lungs are clear. There is no pleural effusion or pneumothorax. The cardiomediastinal silhouette is within normal limits. Procedure Note Dat Neil MD - 11/21/2023 EXAM XR CHEST 2 VIEWS - 11/21/2023 11:28 am HISTORY "f/u rib fractures" TECHNIQUE Frontal and lateral views of the chest were obtained. COMPARISON 10/29/2023 FINDINGS The lungs are clear. There is no pleural effusion or pneumothorax. Thecardiomediastinal silhouette is within normal limits. IMPRESSION IMPRESSION No active disease. Samy Marques Ubbens CRANE OPERATOR CAB RADIOLOGY (RAD GEN ERAL) documented in this encounter Visit Diagnoses Diagnosis Closed fracture of multiple ribs of right side, initial encounter documented in this encounter Advance Directives Documents on File Type Date Recorded Patient Planting Machine Crewman Expl anation Advance Directives and Living Will 05/05/2020 ADVANCE DIRECTIVE / LIVING WILL Power of Sock And Stocking Ironer 05/05/2020 POWER OF A TTORNEY MEDICAL * [...] and were consensually agreed upon. Care Teams Bark Scaler Relationship Specialty Start Date End Date Kathy Sweeney MD [address] [place] [address] PCP - General Family Medicine 11/22/22 documented as of this encounter
--- OUTSIDE RECORDS SUMMARY | 2023-12-04 22:07 | External Medical Summary | Summary of Care ---
Author Name Unknown Organization [facility] Address [address] [place] [address] Phone [phone] Care Team Providers Care Completion Manager Name Role Phone Kathy Sweeney MD Primary Care Provider [phone] Encounter Details Date Type Department Care Team (Late st Contact Info) Description 11/29/2023 10:40 AM EDT [facility] [address] [place], [place] [id number] [facility], Traumatic Brain [place] [address], [place] [phone] Fall, subsequent encounter*; SDH (subdural hematoma) ([facility]) Allergies Active Allergy Reactions Criticality Noted Date Comments Aspirin Anaphylaxis High 12/21/2016 Lip swelling Diphenhydramine Hcl Edema face/lips/tongue High 08/07 Ibuprofen Edema face/lips/tongue High 10/08/2002 Penicillins Unknown 10/08/2002 Red Dye Edema face/lips/tongue,Hives High 05/23/2023 documented as of this encounter (statuses as of 11/29/2023) Medications Medication Sig Dispensed Refills Start Date [...] BEFORE BEDTIME 90 Tablet 3 10/28/2023 Active Acetaminophen 325 MG Oral Tablet (Tylenol) [...] in the morning. 30 Patch 11/08/2023 Active Albuterol Sulfate HFA 108 (90 Base) MCG/ACT Inhalation Aerosol SolutionIndications:M ild persistent asthma without complication USE 2 INHALATIONS ORALLY EVERY 4 HOURS NEEDED FORWHEEZING 54 g 3 11/14/2023 Active Melatonin 1 MG Oral Tablet Take 2 Tablets by mouth at bedtime. 30 Tablet 11/26/2023 Active Sennosides 8.6 MG Oral Tablet (Senokot) Take 2 Tablets by mouth in the morning and 2 Tablets before bedtime. 30 Tablet 11/26/2023 Active QUEtiapine Fumarate 25 MG Oral Tablet (SEROquel)Indications :Moderate dementia with mood disturbance, unspecified dementia type (HCC),Insomnia due to other mental disorder Take 1 Tablet by mouth at bedtime. 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 Hyperparathyroidism, primary 11/12/2021 Stage 3a chronic kidney [...] as of this encounter (statuses as of 11/29/2023) Resolved Problems Problem Noted Date Diagnosed Date Resolved Date Atypical chest pain 11/22/2023 11/28/19 24 Cellulitis of great toe, left 11/22/2023 11/28/2023 Elevated lactic acid level 11/22/2023 1 Elevated procalcitonin 11/22/202311/27 Shortness of breath 11/22/2023 11/28/19 Gastroesophageal reflux disease 11/22/2023 11/28/2023 Closed fracture of multiple ribs of right side 11/07/2023 11/28/2023 SDH (subdural hematoma) 10/29/202311/07 Chest heaviness 10/11/2023 11/28/2023 Altered mental status 10/11/20232023 Memory change 05/20/2022 10/03/2023 Colitis 05/07/2022 11/28/2023 Sepsis without acute organ dysfunction 05/07/2022 05/20/2022 [...] Hiatal hernia 12/25/2018 Overview: treated with surgery Concussion 11/28/2023 Scalp hematoma 11/28/2023 Syncope 11/28/2023 documented as of this encounter (statuses as of 11/29/2023) Immunizations Name Administration Dates Next Due COVID-19 [...] No 10/29/2023 documented as of this encounter Progress Notes * Mahsa Loja PA-C - 11/29/2023 10:54 AM EDT Neurosurgery - Clinic Note [facility], [place], [place] Presenting Problem: HD follow up-parafalcine SDH Relevant Surgical History: None Subjective: Cherelle Sherman is a 83 year old female who presents for a video visit with her son. Patient was admitted to the hospital after falling down the steps. She was found to have a parafalacine SDH and wasadmitted and monitored. She was then discharged to rehab. States she has been back home. They do feel her confusion as worsened but does have baseline dementia. She is getting therapy at home. Her sleep habits have been off and her PCP recently started her on medication to help her sleep. Denies headache, blurred vision, dizziness, lightheaded. 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 Diastolic dysfunction 04/22/2020 Dyslipidemia, goal LDL below 130 07/26/2010 Esophageal reflux 10/08/2002 Hiatal hernia treated with surgery High risk for fracture due to osteoporosis by DEXA scan 11/05/2019 History of colonoscopy with polypectomy 09/06/2012 adenomatous polyp--repeat in 5 yrs 09/06/17 History of recurrent UTIs 12/25/2018 HTN, goal below 140/90 07/26/2010 Hyperlipidemia LDL goal < 130 08/21/2012 Hyperparathyroidism, primary (HCC) 11/12/2021 IBS (irritable bowel syndrome) 12/07/2015 Incomplete bladder emptying 10/04/2023 INFORMATION asthma Insomnia, unspecified 07/26/2010 MEDICATION USE AGREEMENT 06/20/2017 Mild dementia (HCC) 10/03/2023 Mild mitral regurgitation 04/22/2020 Sjoegren syndrome 06/19/2013 Past Surgical History: Procedure Laterality Date COLONOSCOPY 02/06/2007 COLONOSCOPY, DIAGNOSTIC (RECTUM) 09/06/2012 adenomatous polyp--repeat in 5 yrs 09/06/17 COLONOSCOPY, DIAGNOSTIC (RECTUM) 11/19/2015 adenomatous polyp, repeat 5 yrs/COLONOSCOPY FLEXIBLE PROXIMAL DIAGNOSTIC performed by Nils Carrington MD at [facility]COPY [facility] COLONOSCOPY, DIAGNOSTIC (RECTUM) 07/08/2021 normal bx, diverticulosis / COLONOSCOPY FLEXIBLE PROXIMAL DIAGNOSTIC performed by Hannah Sanchez MD at [facility]COPY [facility] EGD, FLEXIBLE, DIAGNOSTIC 09/28/2010 lg hiatal hernia EGD, FLEXIBLE, DIAGNOSTIC N/A 07/08/2021 normal bx, small paraesophageal hernia / ESOPHAGOGASTRODUODENOSCOPY (EGD), FLEXIBLE, TRANSORAL, DIAGNOSTIC performed by Hannah Sanchez MD at [facility]COPY [facility] LAPAROSCOPY,RENAL CYSTS 02/07/2008 PARAESOPHAGEAL HERNIA REPAIR, LAP W/ MESH 11/15/2010 LAPAROSCOPIC PARAESOPHAGEAL HERNIA REPAIR W/MESH performed by GINA MACHUCA at OR [facility] PATIENT EDU, LUMPECTOMY FOR MALIGN* unknown - benign RADIUS/ULNAR FX ORTHO PREFAB 02/06/2010 pinning s/p traumatic fx UPPER GI ENDOSCOPY/EXAM 11/15/2010 UPPER GI ENDOSCOPY SIMPLE performed by GINA MACHUCA at OR [facility] Social History Socioeconomic History Marital status: Spouse name: Not on file Number of children: Not on file Years of education: Not on file Highest education level: Not on file Occupational History Occupation: retired Occupation: [employer] Tobacco Use Smoking status: Former Current packs/day: 0.00 Average packs/day: 1 pack/day for 5.0 years (5.0 ttl pk-yrs) Types: Cigarettes Start date: 02/06/1966 Quit date: 02/06/1971 Years since quittin.8 Smokeless tobacco: Never Vaping Use Vaping status: Never Used Substance and Sexual Activity Alcohol use: No Drug use: No Sexual activity: Yes Partners: Male Comment: no STD history Other Topics Concern Not on file Social History Narrative Lives Retired Social Determinants of Health Financial Resource Strain: Not on file Food Insecurity: No Food Insecurity (10/29/2023) Food Insecurity Do you need food for this week? (Adult - for ages 18 years and over): No Are you able to get enough food for your family? (Household - for ages 0-17 years): Not on file Does your family need food this week? (Household - for ages 0-17 years): Not on file Do you always have enough food for your family? (Household - for ages 0-17 years): Not on file Transportation Needs: No Transportation Needs (10/29/2023) Transportation Needs Do you have trouble getting a ride to medical visits or work? (Adult - for ages 18 years and over):Not on file Does your family have a hard time getting a ride to doctors visits? (Household - for ages 0-17 years): Not on file Has lack of transportation kept you from medical appointments, meetings, work, or from getting things needed for daily living? Check all that apply. (Adult - for ages 18 years and over): No Do you (or your family) have trouble finding or paying for a ride (transportation)? (Household - for ages 0-17 years): Not on file Social Connections: Unknown (11/29/2023) Social Connections How often do you feel lonely or isolated from those around you? (Adult - for ages 18 years and over): Not on file Housing Stability: Low Risk (10/29/2023) Housing Stability Do you currently live in a fdc or have no steady place to sleep at night? (Adult - for ages 18 years and over): Not on file Do you think you are at risk of becoming homeless? (Adult - for ages 18 years and over): Not on file Does your family worry about paying for your home or becoming homeless? (Household - for ages 0-17 years): Not on file Are you homeless or worried that you might be in the future? (Adult - for ages 18 years and over): No Are you (or your family) homeless or worried that you might be in the future? (Household - for ages0-17 years): Not on file Objective: There were no vitals taken for this visit. General: sitting in chair, well nourished, baseline dementia, in no acute distress Psych: Pleasant, cooperative, appropriate, interactive Head/Neck: Normocephalic, atraumatic Neurologic: Awake and alert Tracking around the room Facial expression symmetric Follows commands Moves BUE spontaneously Assessment: This is a 83 year old female who presents for a HD follow up. She was found to have a parafalcine SDH and recently had repeat imaging which showed resolution. Patient has been doing well since rehab but does have baseline dementia. Her PCP did prescribe medication to help with her sleep. She does follow up with neurology for her dementia. All questions and concerns were answered. Can follow up asneeded. Imagin11/13/23-CT head-1. Resolution of small right parafalcine hemorrhage seen on 10/29/2023. No intervalnew hemorrhage. 2. Dilation of the lateral and, to a lesser extent, the 3rd ventricles disproportionate to the degree of cerebral volume loss, similar to prior examination. Although nonspecific, findings can be seenwith normal pressure hydrocephalus in appropriate clinical setting. Plan: 1. Follow up as needed 2. Call neurosurgery with any questions or concerns Mahsa Loja PA-C 11/29/2023 10:54 AM This patient will be reviewed by my attending, Dr. Camejo I spent a total of 30 minutes on the date of service in preparation, delivery, and documentation ofthe care provided to Cherelle Sherman excluding any time spent in the performance of separately billed services. Patient location: HOME. I was in a hospital or clinic location. After connecting through televideo,patient was verified with two unique identifiers. Patient (or authorized legal marketing sales representative) was then informed that this was a Telemedicine visit and being conducted confidentially over secure lines. Methods to assure confidentiality were taken. Patient acknowledged consent and understanding of pr ivacy and security of the Telemedicine visit. The patient agreed to participate. documented in this encounter Plan of Treatment Upcoming Encounters Date Type Department Care Team (Late st Contact Info) Description 12/22/2023 11:20 AM EST Office Visit Family Practice [facility] [place] [address] [place] [address] Kathy Sweeney MD [address] [facility] [place] [address] 01/09/2024 10:00 AM EST Laboratory Laboratory [facility] [place] [address] [place] [phone] [facility] [place] [address] [place] [address] 01/16/2024 12:30 PM EST Office Visit Hematology/Oncology [facility] [place] [address] [place] [phone] Bindu Jones MD [address] [place] [address] 03/21/2024 3:30 PM EST Office Visit Neurology [facility] [place] [address] [place] [address] Abbie Arora PA-C [address] [address] Health Maintenance Due Date Last Done Comments Adult Wellness Visit 09/20/2013 09/20/2012 *BISPHONATE OR OTHER ACCEPTABLE MEDICATION NEEDED FOR OSTEOPOROSIS (REFER TO SMARTSET #1146) 05/09/2022 Albumin/Creatinine Ratio 11/12/2022 11/12/2021, 06/06 Influenza Vaccine (FLU shot) (#1) 2023 11/22/2022, 11/12/2021, 10/13/2020, Additional history exists DXA Scan 11/11/2023 11/10/2021, 10/08, 07/27/2015, Additional history exists HbA1c 11/23/2023 11/22/2022, 08/2021, 10/13/2020, Additional history exists GFR 05/21/2024 11/21/2023, 09/2023, 11/07/2023, Additional history exists Depression Screening 06/28/2024 06/29/2023, 09/03/19 CKD PHOS USE SMARTSET 20813 10/31/202410/08, 10/31/2023, 10/30/2023, Additional history exists CKD HGB USE SMARTSET 39519 11/20/202411/20, 11/21/2023, 11/14/2023, Additional history exists Colonoscopy 07/08/2026 07/08/2021, 03/2021, 11/19/2015, Additional history exists DTap/Tdap Vaccines (2 - Td or Tdap) 11/07/2026 11/07/2016, 07/16/2010 Pneumococcal Vaccine: 65+ Years Completed 09/02/2014, 08/30/2010 Zoster Vaccines Completed 11/21/2019, 08/2019, 07/25/2007 COVID-19 Vaccine Discontinued 04/21/2020, 03/31/2020 VITAMIN D LEVEL ONCE IN A LIFETIME-USE SMARTSET# 46692 Completed 10/13/2020, 12/26/2019, 06/21/2018, Additional history exists [...] this encounter Medical Devices Implanted Type Area Supervisor Harvesting Device Identifier Shelf Expiration Date Model / Serial / Lot Alloderm 2x4 Sheet [id number] (8 Units) - [id number] Implanted:Qty : 8 on 11/15/2010 at [place] [facility] [place] Tissue - Human N/A: Esophagus [employer] 05/06/2012 [id number] / / [id number] documented as of this encounter Visit Diagnoses Diagnosis Fall, subsequent encounter- Primary SDH (subdural hematoma) (HCC) Subdural hemorrhage documented in this encounter Advance Directives Documents on File Type Date Recorded 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 Care Teams Completion Manager Relationship Specialty Start Date End Date Kathy Sweeney MD [address] [place] [address] PCP - General Family Medicine 11/22/22 documented as of this encounter
--- OUTSIDE RECORDS SUMMARY | 2023-12-04 22:07 | External Medical Summary ---
Author Name Unknown Address Unknown Organization K1F:[facility] - [address] [place] [id number] Laboratory Report Ordering Provider Test Date Status CELIA GRAY 11/21/2023 06:51:00 Final Observation Date Value Abnormality Reference (Units ) Status BUN 11/21/2023 06:51:00 9 6-20 (mg/dL) Final Creatinine 11/21/2023 06:51:00 0.5 0.5-1.0 (mg/dL) Final Glomerular filtration rate/1.73 sq M.predicted [Volume Rate/Area] in Serum, Plasma or Blood by Creatinine-based formula (CKD-EPI) 11/21/2023 06:51:00 >90 >=60 (mL/min) Final eGFR is calculated based on the CKD-EPI 2020 equation. Sodium 11/21/2023 06:51:00 141 135-146 (m mol/L) Final Potassium 11/21/2023 06:51:00 3.9 3.5-5.1 (m mol/L) Final Cl 11/21/2023 06:51:00 102 98-107 (mm ol/L) Final CO2 11/21/2023 06:51:00 25 22-32 (mmo l/L) Final Anion gap 11/21/2023 06:51:00 14 7-15 (mmol /L) Final Glucose 11/21/2023 06:51:00 102 70-120 (mg /dL) Final Calcium 11/21/2023 06:51:00 9.7 8.4-10.2 ( mg/dL) Final Performing Location [facility] - [address] [place] [id number]
--- OUTSIDE RECORDS SUMMARY | 2023-12-04 22:07 | External Medical Summary | Summary of Care ---
Author Name Unknown Organization [facility] Address [address] [place] [address] Phone [phone] Care Team Providers Care Mechanism Assembler Name Role Phone Kathy Sweneey MD Primary Care Provider [phone] Reason for Visit * Reason Onset Date Comments Advice 11/30/2023 Encounter Details Date Type Department Care Team (Late st Contact Info) Description 11/30/2023 Telephone Family Practice [facility] [address] [place] [address] Kathy Sweeney MD [address] [place] [address] Advice Allergies Active Allergy Reactions Criticality Noted Date Comments Aspirin Anaphylaxis High 12/21/2016 Lip swelling Diphenhydramine Hcl Edema face/lips/tongue High 08/07 Ibuprofen Edema face/lips/tongue High 10/08/2002 Penicillins Unknown 10/08/2002 Red Dye Edema face/lips/tongue,Hives High 05/23/2023 documented as of this encounter (statuses as of 11/30/2023) Medications Medication Sig Dispensed Refills Start Date [...] as of this encounter (statuses as of 11/30/2023) Active Problems Problem Noted Date Diagnosed Date [...] as of this encounter (statuses as of 11/30/2023) Resolved Problems Problem Noted Date Diagnosed Date Resolved Date Atypical chest pain 11/22/2023 11/28/19 Cellulitis of great toe, left 11/22/2023 11/28/2023 [...] as of this encounter (statuses as of 11/30/2023) Immunizations Name Administration Dates Next Due COVID-19 [...] encounter Miscellaneous Notes * Telephone Encounter - Darcy Ireland RN - 11/30/2023 12:13 PM EDT Provider to address: n/a Reason for Call: Advice Contact: Telephone Call Contact Type: Advice Provider In-Basket: No Outcome: spoke with patient see below Face to face time spent with Patient (minutes): 0 Total Time including non face to face (minutes): [address] Sweeney, patient was not eligible for case management assistance through our officedue to insurance not being straight medicare or GHP. Son was interested in getting help in looking for long-term placement for Cherelle. Called and spoke with son, Grant, discussed contacting office of aging, which he reports that he recently has done and they have been very helpful, and they have already started the application process to a couple of facilities. He will contact our office if any documentation is needed from us. He appreciated the call, and denies any further needs at this time. documented in this encounter Plan of Treatment Upcoming Encounters Date Type Department Care Team (Late st Contact Info) Description 12/22/2023 11:20 AM EST Office Visit Family Practice [facility] [address] [place] [address] Kathy Sweeney MD [address] [place] [address] [place] [address] 01/09/2024 10:00 AM EST Laboratory Laboratory [facility] [address] [place] [id number] [facility] [address] [place] [address] 01/16/2024 12:30 PM EST Office Visit Hematology/Oncology [facility] [address] [place] [phone] Bindu Jones MD [address] [place] [address] [place] [address] 03/21/2024 3:30 PM EST Office Visit Neurology [facility] [address] [place] [address] Abbie Arora PA-C [address] [place] [address] Health Maintenance Due Date Last Done Comments [...] 06/28/2024 06/29/2023, 09/03/19 CKD PHOS USE SMARTSET 31898 10/31/202410/08, 10/31/2023, 10/30/2023, Additional history exists CKD HGB USE SMARTSET 87283 11/20/202411/20, 11/21/2023, 11/14/2023, Additional history exists Colonoscopy 07/08/2026 07/08/2021, 03/2021, 11/19/2015, Additional history exists DTap/Tdap Vaccines (2 - Td or Tdap) 11/07/2026 11/07/2016, 07/16/2010 Pneumococcal Vaccine: 65+ Years Completed 09/02/2014, 08/30/2010 Zoster Vaccines Completed 11/21/2019, 08/2019, 07/25/2007 COVID-19 Vaccine Discontinued 04/21/2020, 03/31/2020 VITAMIN D LEVEL ONCE IN A LIFETIME-USE SMARTSET# [id number] Completed 10/13/2020, 12/26/2019, 06/21/2018, Additional history exists [...] this encounter Medical Devices Implanted Type Area Heat Welder [employer] Device Identifier Shelf Expiration Date Model / Serial / Lot Alloderm 2x4 Sheet [id number] (8 Units) - [id number] Implanted:Qty : 8 on 11/15/2010 at OR [facility] [place] Tissue - Human N/A: Esophagus [employer] 05/06/2012 [id number] / / [id number] documented as of this encounter Advance Directives Documents on File Type Date Recorded Patient Rod Buster Expl anation Advance Directives and Living Will 05/05/2020 ADVANCE DIRECTIVE / LIVING WILL Power of [facility] Shift Lead 05/05/2020 POWER OF A [employer] * [...] and were consensually agreed upon. Care Teams Mechanism Assembler Relationship Specialty Start Date End Date Kathy Sweeney MD [address] [place] [address] PCP - General Family Medicine 11/22/22 documented as of this encounter
--- OUTSIDE RECORDS SUMMARY | 2023-12-04 22:07 | External Medical Summary | Summary of Care ---
Author Name Unknown Organization [facility] Address [address] [place] [address] Phone [phone] Care Team Providers Care Project Manager Process Development Name Role Phone Kathy Sweeney MD Primary Care Provider [phone] Encounter Details Date Type Department Care Team (Late st Contact Info) Description 11/28/2023 Referral Triage Care Coordination and Integration [address], [place] [id number] Chanelle Mckeon, YUKI [address] [place] [address] Allergies Active Allergy Reactions Criticality Noted Date Comments Aspirin Anaphylaxis High 12/21/2016 Lip swelling Diphenhydramine Hcl Edema face/lips/tongue High 08/07 Ibuprofen Edema face/lips/tongue High 10/08/2002 Penicillins Unknown 10/08/2002 Red Dye Edema face/lips/tongue,Hives High 05/23/2023 documented as of this encounter (statuses as of 11/28/2023) Medications Medication Sig Dispensed Refills Start Date [...] as of this encounter (statuses as of 11/28/2023) Active Problems Problem Noted Date Diagnosed Date [...] as of this encounter (statuses as of 11/28/2023) Resolved Problems Problem Noted Date Diagnosed Date [...] as of this encounter (statuses as of 11/28/2023) Immunizations Name Administration Dates Next Due COVID-19 [...] as of this encounter Progress Notes * Chanelle Mckeon OSA - 11/28/2023 4:13 PM EDT Per an [id number] Referral Workqueues [facility]-Level2&3 Referrals ([id number]) this member was openedand assigned to a CM for the below reason: Number of Visits Requested: 999 Associated Diagnosis: SDH (subdural hematoma) (HCC) (S06.5XAA) Concussion with unknown loss of consciousness status, subsequent encounter (S06.0XAD) Hematoma of scalp, subsequent encounter (S00.03XD) Closed fracture of multiple ribs of right side with routine healing, subsequent encounter (S22.41XD) Colitis (K52.9) Stage 3a chronic kidney disease (HCC) (N18.31) Dyslipidemia (E78.5) HTN, goal below 140/90 (I10) Moderate dementia with mood disturbance, unspecified dementia type (HCC) (F03.B3) Insomnia due to other mental disorder (F51.05,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) Need for case management follow-up (Z09) This was opened and assigned to Honey Doll based on County Assignment on the [place] documented in this encounter Plan of Treatment Upcoming Encounters Date Type Department Care Team (Late st Contact Info) Description 11/29/2023 10:40 AM EDT Telemedicine Neurosurgery, [address] [address] [facility], Traumatic Brain Injury [address] [place] [id number] 12/22/2023 11:20 AM EST Office Visit Family Practice [facility] [address] [facility] [place] [address] Kathy Sweeney MD [address] [facility] [address] [address] 01/09/2024 10:00 AM EST Laboratory Laboratory [facility] [address] [facility] [place] [phone] [facility] [address] [facility] [place] [address] 01/16/2024 12:30 PM EST Office Visit Hematology/Oncology [facility] [address] [facility] [place] [phone] Bindu Jones MD [address] [facility] [address] [address] 03/21/2024 3:30 PM EST Office Visit Neurology [facility] [address] [facility] [place] [address] Abbie Arora PA-C [address] [place] [address] [address] Health Maintenance Due Date Last Done Comments [...] 06/28/2024 06/29/2023, 09/03/19 CKD PHOS USE SMARTSET 85721 10/31/202410/08, 10/31/2023, 10/30/2023, Additional history exists CKD HGB USE SMARTSET 68276 11/20/202411/20, 11/21/2023, 11/14/2023, Additional history exists Colonoscopy 07/08/2026 07/08/2021, 03/2021, 11/19/2015, Additional history exists DTap/Tdap Vaccines (2 - Td or Tdap) 11/07/2026 11/07/2016, 07/16/2010 Pneumococcal Vaccine: 65+ Years Completed 09/02/2014, 08/30/2010 Zoster Vaccines Completed 11/21/2019, 080 08/2019, 07/25/2007 COVID-19 Vaccine Discontinued 04/21/2020, 03/31/2020 VITAMIN D LEVEL ONCE IN A LIFETIME-USE SMARTSET# [id number] Completed 10/13/2020, 12/26/2019, 06/21/2018, Additional history exists [...] this encounter Medical Devices Implanted Type Area Residential Air Sealing Technician Device Identifier Shelf Expiration Date Model / Serial / Lot Alloderm 2x4 Sheet [id number] (8 Units) - [id number] Implanted:Qty : 8 on 11/15/2010 [place] [facility] [place] Human N/A: Esophagus [employer] 05/06/2012 [id number] / / [id number] documented as of this encounter Advance Directives Documents on File Type Date Recorded 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 Care Teams Project Manager Process Development Relationship Specialty Start Date End Date Kathy Sweeney MD [address], [place] [address] PCP - General Family Medicine 11/22/22 documented as of this encounter
--- OUTSIDE RECORDS SUMMARY | 2023-12-04 22:07 | External Medical Summary | Summary of Care ---
Author Name Unknown Organization [facility] Address [address] [place] [address] Phone [phone] Care Team Providers Care Director [employer] Name Role Phone Kathy Sweeney MD Primary Care Provider [phone] Reason for Referral * Social Care (Within 10 days (routine)) - Authorized Specialty Diagnoses / Procedures Referred By Contac t Referred To Contact Director Business Diagnoses SDH (subdural hematoma) (HCC) Concussion with unknown loss of consciousness status, subsequent encounter Hematoma of scalp, subsequent encounter Closed fracture of multiple ribs of right side with routine healing, subsequent encounter Colitis Stage 3a chronic kidney disease (HCC) Dyslipidemia HTN, goal below 140/90 Moderate dementia with mood disturbance, 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 [facility] Role General Helper General Helper Referral Reason Transition of Care (ALEKS)/High Risk for Readmission, Frail Elderly Comments Is patient being transitioned from [facility] to Complex Case Management? No * Evaluate & Treat - Unlimited Visits (Within 10 days (routine)) - Authorized Specialty Diagnoses / Procedures Referred By Contconstantin t Referred To Contact Psychiatry / Psychology Diagnoses Moderate dementia with mood disturbance, unspecified dementia type (HCC) Kathy Sweeney MD [address] [facility] [place] [address] Referral ID Status Reason Start Date Expiration Date Visits Requested Visits Authorized [id number] Authorized Specialty Services Required [phone] Question Answer Referral Priority Within 10 days (routine) Where should this appointment be scheduled? [facility] Is this referral for medication management? No What condition is this patient being seen for? Dementia/Neurodegenerative Does the patient have SEVERE cognitive impairment on bedside screeners? (MoCA/MMSE <= 10) Unknown Comments Neuropsychological evaluations are INTERACTIVE and use materials that require a patient to SEE, HEAR, and often WRITE. If a patient is unable to engage in this way, neurocognitive assessment may be abbreviated or deemed inappropriate. Please use caution in establishing expectations with your patient, and note any limitations in the comments section of the referral order. Reason for Visit * Reason Comments Hospital Follow-Up Encounter Details Date Type Department Care Team (Latest Contact Info) Description 11/28/2023 3:20 PM EDT Office Visit Family Practice [facility] [place] [address] [place], [place] [address] Kathy Sweeney MD 200 [facility] [place] [address] Hospital discharge follow-up*; SDH (subdural hematoma) (HCC); Concussion with unknown loss of consciousness status, subsequent encounter; Hematoma of scalp, subsequent encounter; Closed fracture of multiple ribs of right side with routine healing, subsequent encounter; Colitis; Stage 3a chronic kidney disease (HCC); Dyslipidemia; HTN, goal below 140/90; Moderate dementia with mood disturbance, unspecified dementia type (HCC); Insomnia due to other mental disorder; Need for case management follow-up Allergies Active Allergy Reactions Criticality Noted Date Comments Aspirin Anaphylaxis High 12/21/2016 Lip swelling Diphenhydramine Hcl Edema face/lips/tongue High /07/2010 Ibuprofen Edema face/lips/tongue High 10/08/2002 Penicillins Unknown [...] mRNA, LNP-s, No Pre serve, 2-Dose Series (Trips n Salsa) 04/21/2020,03/31/2020 Pneumococcal Conjugate Vacc, 13 Valent (Prevnar) [...] Sign Reading Time Taken Comments Blood Pressure 134/70 11/28/2023 3:31 PM EDT Pulse 107 11/28/2023 3:31 PM EDT Temperature 37.3 C (99.1 F) 11/28/2023 3:31 PM ED T Respiratory Rate 16 11/28/2023 3:31 PM EDT Oxygen Saturation 96% 11/28/2023 3:31 PM EDT Inhaled Oxygen Concentration - - Weight - - Height - - Body Mass Index - - documented in this encounter Functional Status Functional [...] Progress Notes * Kathy Sweeney MD - 11/28/2023 3:21 PM EDT Subjective Chief Complaint Patient presents with Hospital Follow-Up HPI: Cherelle Sherman is a 83 year old female. The following issues were addressed today: Date of admission: 10/29/23 Date of discharge to SNF: 11/07/23 Date of discharge to home: 11/23/23 Date of ALEKS phone call: 11/24/23 Hospital course: Patient was admitted to [facility] [place] a mechanical fall. She was found to have a smallright posterior scalp hematoma, small right parafalcine subdural hemorrhage, and age indeterminate mild buckling of the anterior right 6th and 7th rib (favored to be chronic). She was started on Keppra for seizure prevention. She was also noted to have alterations of the skin on the right heel and right great toe which were monitored by wound care while hospitalized. Several incidental findings were noted on admission including heterogeneous density of the thyroid gland with the larger nodule measuring up to 2.0 cm at the right thyroid lobe. She was also treated with Zosyn for sigmoid colitisand transitioned to Cipro and Flagyl. ID was consulted and recommended discontinuation of antibiotics. Course since hospitalization: History of Present Illness The patient, with a history of dementia, ischemic colitis, and recent SDH, presents with her son for hospital follow-up. He reports a significant decline in cognitive function and physical health over the past month. She was hospitalized thrice in October, with the last admission due to a fall athome resulting in a head injury and rib injury. The exact timeline and circumstances of the fall remain unclear. Post-discharge, the patient spent two and a half weeks at [facility], which initially seemed beneficial. However, since returning home, she has regressed and was found on the floor twice in less than a week. The patient also exhibits confusion, attempting to make phone calls with TV remotes and having difficulty navigating daily tasks. The patient's sleep-wake cycle appears disrupted, with a tendency to sleep during the day and stay awake at night. She has been taking melatonin without improvement. The patient also reports feeling more emotional recently. The patient's physical health has been relatively stable, with no reported pain. However, she expresses a sense of loss of control and a desire to regain some semblance of her previous life. The patient's medication regimen is organized by her son and administered by a caregiver. The patient has a caregiver present from 9 am to 8 pm but otherwise lives alone. She has follow-up with neurosurgery tomorrow via telemedicine. Review of Systems: See HPI Objective BP 134/70 | Pulse 107 | Temp 37.3 C (99.1 F) (Tympanic) | Resp 16 | SpO2 96% Wt Readings from Last 3 Encounters: 10/31/23 61.4 kg (135 lb 5.8 oz) 10/11/23 62.2 kg (137 lb 2 oz) 10/04/23 62.6 kg (138 lb) BP Readings from Last 3 Encounters: 11/28/23 134/70 11/21/23 142/75 11/07/23 137/55 General: Well-appearing, no acute distress Head: Normocephalic, no ecchymosis or laceration Eyes: No conjunctival injection, no scleral icterus, extraocular movements are intact Cardiovascular: Regular rate and rhythm, no murmur Respiratory: Good respiratory effort, breath sounds equal and clear to auscultation bilaterally Abdomen: Soft, non-distended, non-tender, normoactive bowel sounds Neurological: Alert to person and place only Psychiatric: Tearful, anxious, tangential speech Assessment & Plan 1. Hospital discharge follow-up - DISCH MED RECON CUR MED LIS 2. SDH (subdural hematoma) (HCC) Stable. Follow-up with neurosurgery as scheduled. - POPULATION [facility]ALTH REFERRAL OP 3. Concussion with unknown loss of consciousness status, subsequent encounter Stable. - POPULATION HEALTH REFERRAL OP 4. Hematoma of scalp, subsequent encounter Resolved. - POPULATION HEALTH REFERRAL OP 5. Closed fracture of multiple ribs of right side with routine healing, subsequent encounter Stable. Patient reports no current pain or shortness of breath. - POPULATION HEALTH REFERRAL OP 6. Colitis Resolved. Patient reports no current abdominal pain. - POPULATION HEALTH REFERRAL OP 7. Stage 3a chronic kidney disease (HCC) Stable. - POPULATION HEALTH REFERRAL OP 8. Dyslipidemia Stable. - POPULATION HEALTH REFERRAL OP 9. HTN, goal below 140/90 Well-controlled. - POPULATION HEALTH REFERRAL OP 10. Moderate dementia with mood disturbance, unspecified dementia type (HCC) - ADULT/PEDS NEUROPSYCHOLOGY REFERRAL OP - QUEtiapine Fumarate 25 MG Oral Tablet (SEROquel); Take 1 Tablet by mouth at bedtime. Dispense: 90Tablet; Refill: 1 - POPULATION HEALTH REFERRAL OP 11. Insomnia due to other mental disorder - QUEtiapine Fumarate 25 MG Oral Tablet (SEROquel); Take 1 Tablet by mouth at bedtime. Dispense: 90Tablet; Refill: 1 - POPULATION HEALTH REFERRAL OP 12. Need for case management follow-up - POPULATION HEALTH REFERRAL OP Patient with rapid cognitive decline after repeat hospitalizations and recent SDH. Son does not feel she is safe to live at home by herself and is looking into housing options. He is requesting help navigating the system. Will refer to case management. Will start on low dose of Seroquel 25mg at bedtime for mood disturbances and insomnia. Discussed methods to employ at home to reduce delirium. Follow Up: Return for follow-up as scheduled or sooner as needed. This note was electronically signed by Kathy Sweeney MD documented in this encounter Nursing Notes * Meg Isidro LPN - 11/28/2023 3:28 PM EDT Cherelle Sherman presents for hospital follow up. Medications & HM reviewed. Has had 2 falls since coming home from hospital. 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 documented in this encounter Plan of Treatment Upcoming Encounters Date Type Department Care Team (Late st Contact Info) Description 11/29/2023 10:40 AM EDT Telemedicine Neurosurgery, [address] [address] [facility] Traumatic Brain Injury [address] [place] [address] 12/22/2023 11:20 AM EST Office Visit Family Practice [facility] [address] [place] [address] Kathy Sweeney MD 200 [facility] [place] [address] 01/09/2024 10:00 AM EST Laboratory Laboratory [facility] [address] [place] [phone] [facility] Lab [facility] [address] [facility] [place] [address] 01/16/2024 12:30 PM EST Office Visit Hematology/Oncology [facility] [address] [facility] [place] [phone] Bindu Jones MD 200 [facility] [place] [address] 03/21/2024 3:30 PM EST Office Visit Neurology [facility] [address] [facility] [place] [address] Abbie Arora PA-C [address] [place] [address] Scheduled Referrals Name Type Priority Associated Diagnoses Orde r Schedule ADULT/PEDS NEUROPSYCHOLOGY REFERRAL OP Referral Within 10 days (routine) Moderate dementia with mood disturbance, unspecified dementia type (HCC) Ordered: 11/28/2023 POPULATION HEALTH REFERRAL OP Referral Within 10 days (routine) SDH (subdural hematoma) (HCC) Concussion with unknown loss of consciousness status, subsequent encounter Hematoma of scalp, subsequent encounter Closed fracture of multiple ribs of right side with routine healing, subsequent encounter Colitis Stage 3a chronic kidney disease (HCC) Dyslipidemia HTN, goal below 140/90 Moderate dementia with mood disturbance, 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 Need for case management follow-up Ordered: 11/28/2023 Health Maintenance Due Date Last Done Comments [...] 06/28/2024 06/29/2023, 09/03/19 CKD PHOS USE SMARTSET 01394 10/31/202410/08, 10/31/2023, 10/30/2023, Additional history exists CKD HGB USE SMARTSET 68150 11/20/202411/20, 11/21/2023, 11/14/2023, Additional history exists Colonoscopy 07/08/2026 07/08/2021, 03/2021, 11/19/2015, Additional history exists DTap/Tdap Vaccines (2 - Td or Tdap) 11/07/2026 11/07/2016, 07/16/2010 Pneumococcal Vaccine: 65+ Years Completed 09/02/2014, 08/30/2010 Zoster Vaccines Completed 11/21/2019, 08/2019, 07/25/2007 COVID-19 Vaccine Discontinued 04/21/2020, 03/31/2020 VITAMIN D LEVEL ONCE IN A LIFETIME-USE SMARTSET# [id number] Completed 10/13/2020, 12/26/2019, 06/21/2018, Additional history exists [...] this encounter Medical Devices Implanted Type Area Sales Trader Device Identifier Shelf Expiration Date Model / Serial / Lot Edward 2x4 Sheet [id number] (8 Units) - [id number] Implanted:Qty : 8 on 11/15/2010 at [place] [facility] Tissue - Human N/A: Esophagus [employer] VICENTA 05/06/2012 [id number] / / [id number] documented as of this encounter Visit Diagnoses Diagnosis Hospital discharge follow-up- Primary Other follow-up examination SDH (subdural hematoma) (HCC) Subdural hemorrhage Concussion with unknown loss of consciousness status, subsequent encounter Hematoma of scalp, subsequent encounter Closed fracture of multiple ribs of right side with routine healing, subsequent encounter Colitis Other and unspecified noninfectious gastroenteritis and colitis Stage 3a chronic kidney disease (HCC) Dyslipidemia Other and unspecified hyperlipidemia HTN, goal below 140/90 Unspecified essential hypertension Moderate dementia with mood disturbance, 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 Care Teams Director [employer] Relationship Specialty Start Date End Date Kathy Sweeney MD [address] [place] [id number] PCP - General Family Medicine 11/22/22 documented as of this encounter"
--- OUTSIDE RECORDS SUMMARY | 2023-12-04 22:07 | External Medical Summary | Summary of Care ---
Author Name Unknown Organization [facility] Address [address] [place] [address] Phone [phone] Care Team Providers Care Abrasive Sawyer Name Role Phone Kathy Sweeney MD Primary Care Provider [phone] Reason for Visit * Reason Comments Follow Up Encounter Details Date Type Department Care Team (Late st Contact Info) Description 11/21/2023 10:30 AM EDT Office Visit General Surgery, [place] [address] [place] [address], Trauma Clinic [address] [place] [address] Closed fracture of multiple ribs of right side, initial encounter* Allergies Active Allergy Reactions Criticality Noted Date Comments Aspirin Anaphylaxis High 12/21/2016 Lip swelling Diphenhydramine Hcl Edema face/lips/tongue High 08/07 Ibuprofen Edema face/lips/tongue High 10/08/2002 Penicillins Unknown 10/08/2002 Red Dye Edema face/lips/tongue,Hives High 05/23/2023 documented as of this encounter (statuses as of 11/21/2023) Medications Medication Sig Dispensed Refills Start Date [...] mouth every evening. 30 Each 11/07/2023 Active Enoxaparin Sodium 30 MG/0.3ML Injection Solution Prefilled Syringe Inject 20 mg under the skin in the morning and 20 mg before bedtime. Do all this for 14 days. 5.6 mL 11/07/2023 Active Lidocaine 4 % External Patch [...] as of this encounter (statuses as of 11/21/2023) Active Problems Problem Noted Date Diagnosed Date [...] as of this encounter (statuses as of 11/21/2023) Resolved Problems Problem Noted Date Diagnosed Date [...] as of this encounter (statuses as of 11/21/2023) Immunizations Name Administration Dates Next Due COVID-19 mRNA, LNP-s, No Pre serve, 2-Dose Series (Built [place]) 04/21/2020,03/31/2020 Pneumococcal Conjugate Vacc, 13 Valent (Prevnar) [...] Sign Reading Time Taken Comments Blood Pressure 142/75 11/21/2023 10:52 AM EDT Pulse 106 11/21/2023 10:52 AM EDT Temperature 36.7 C (98 F) 11/21/2023 10:52 AM EDT Respiratory Rate 18 11/21/2023 10:52 AM EDT Oxygen Saturation 96% 11/21/2023 10:52 AM EDT Inhaled Oxygen Concentration - - [...] as of this encounter Progress Notes * Anni Catherine, HUMBERTO - 11/21/2023 12:05 PM EDT S: Patient was seen in the trauma clinic today after she fell and sustained right 6-7 rib fractures. The patient is doing well and takes Tylenol as needed for the pain. The patient really does not have much pain. It was mentioned that the rib fractures may be chronic. Patient is eating and drinking without any issues and patient is voiding and having regular bowel movements without any difficulty. Patient denies any headaches, chest pain, shortness of breath, lightheadedness, dizziness, nausea, vomiting, numbness or tingling, fevers or chills. O: BP 142/75 | Pulse 106 | Temp 36.7 C (98 F) (Tympanic) | Resp 18 | SpO2 96% General: Sitting in chair in no apparent distress HEENT: PERRL, AT NC Cardiac: S1 S2 noted with RRR, no edema noted and +2 radial and pedal pulses present Lungs: clear to ascultation bilaterally GI: soft, non-tender, non-distended. Active bowel sounds in all four quadrants. Skin: warm, dry and intact Neuro: AAOx3 A/P: 1. CXR showed no infiltrates, pleural effusion or pneumothorax 2. Educated the patient on their restrictions of no lifting., pushing or pulling anything greater than 10 pounds for 8 weeks. 3. Educated the patient on their restrictions of no bending or twisting for 8 weeks. 4. Use incentive spirometer 10 times an hour while awake 5. Can use Tylenol 975 mg every 8 hours as needed 6. Patient does not need to follow up with trauma surgery anymore 7. Patient was encouraged to call us at anytime with any questions or concerns. Patient scored a 9 on the PHQ-9 and a 17 on the PCL-5. PHQ-9 Scoring 0-4 No depression 5-9 Mild depression 10-14 Moderate Depression 15-19 Moderately Severe Depression 20-27 Severe Depression PCL-5 Scoring Score of >33 is indicative of a provisional diagnosis of PTSD. For scores over 14 on the PHQ-9 and over 33 on the PCL-5, was a referral for outpatient psychology placed? No Does the patient request a phone call from trauma psychology? No Did the patient endorse thoughts of being better off on the PHQ-9? No Does the patient have any thoughts of harming himself/herself? No Does the patient have a plan? No Does the patient want to ? No I spent a total of 20-29 minutes (exact time 25 mins) on the date of service in preparation, delivery, and documentation of the care provided to Cherelle Sherman excluding any time spent in the performance of separately billed services or time spent by another provider/QHP. documented in this encounter Plan of Treatment Upcoming Encounters Date Type Department Care Team ([facility] st Contact Info) Description 11/29/2023 10:40 AM EDT Office Visit [address] [address] [facility], Traumatic Brain Injury [address] [place] [address] 12/22/2023 11:20 AM EST Office Visit Family Practice [facility] [address] [facility] [address] [place], [place] [address] Kathy Sweeney MD [address] [facility] [place] [address] 01/09/2024 10:00 AM EST Laboratory Laboratory [facility] [address] [facility] [place] [phone] [facility] [address] [facility] [place] [address] 01/16/2024 12:30 PM EST Office Visit Hematology/Oncology [facility] [address] [facility] [place] [phone] Bindu Jones MD 200 [facility] [place] [address] 03/21/2024 3:30 PM EST Office Visit Neurology [facility] [address] [facility] [place] [address] Abbie [facility]C [facility] [address] Health Maintenance Due Date Last Done Comments [...] D LEVEL ONCE IN A LIFETIME-USE SMARTSET# [id number] Completed 10/13/2020, 12/26/2019, 06/21/2018, Additional history exists [...] this encounter Medical Devices Implanted Type Area Tooth Cutter Contact Wheel Device Identifier Shelf Expiration Date Model / Serial / Lot Alloderm 2x4 Sheet [id number] (8 Units) - [id number] Implanted:Qty : 8 on 11/15/2010 at [place] [facility] [place] [facility] Tissue - Human N/A: Esophagus [employer] CELL VICENTA 05/06/2012 [id number] / / [id number] documented as of this encounter Visit Diagnoses Diagnosis Closed fracture of multiple ribs of right side, initial encounter- Primary documented in this encounter Advance Directives Documents on File Type Date Recorded Patient Trauma Doctor Expl anation Advance Directives and Living Will 05/05/2020 ADVANCE DIRECTIVE / LIVING WILL Power of Soft Iron Inspector 05/05/2020 POWER OF A TTORNEY MEDICAL * [...] and were consensually agreed upon. Care Teams Abrasive Sawyer Relationship Specialty Start Date End Date Kathy Sweeney MD [address] [place] [address] PCP - General Family Medicine 11/22/22 documented as of this encounter"
--- OUTSIDE RECORDS SUMMARY | 2023-12-04 22:07 | External Medical Summary | Summary of Care ---
Author Name Unknown Organization [facility] Address [address] [place] [address] Phone [phone] Care Team Providers Care Precision Honing Machine Operator Name Role Phone Kathy Sweeney MD Primary Care Provider [phone] Reason for Visit * Reason Onset Date Comments Medication Refill 11/24/2023 Encounter Details Date Type Department Care Team (Late st Contact Info) Description 11/24/2023 Refill Family Practice [facility] [address] [facility] [place] [address] Kathy Sweeney MD [address] [place] [address] Allergies Active Allergy Reactions Criticality Noted Date Comments Aspirin Anaphylaxis High 12/21/2016 Lip swelling Diphenhydramine Hcl Edema face/lips/tongue High 08/07 Ibuprofen Edema face/lips/tongue High 10/08/2002 Penicillins Unknown 10/08/2002 Red Dye Edema face/lips/tongue,Hives High 05/23/2023 documented as of this encounter (statuses as of 11/26/2023) Medications Medication Sig Dispensed Refills Start Date [...] 06/21/2023 Active Famotidine 20 MG Oral Tablet (Pepcid)Indications: Gastroesophageal reflux disease with esophagitis, unspecified whether hemorrhage Take 1 Tablet by mouth at bedtime. 30 Tablet 11 06/20/2023 Active Estradiol 0.1 MG/GM Vaginal Cream (Estrace)Indications :Recurrent UTI,Atrophic vulvovaginitis Administer 1 g into and around the vagina 1-3 times per week 42.5 g 3 06/20/2023 Active amLODIPine Besylate 5 MG Oral Tablet (Norvasc)Indications :HTN, goal below 140/90,Intermittent lightheadedness TAKE 1 TABLET EVERY MORNING 90 Tablet 2 09/26/2023 Active Fluticasone Propionate HFA 110 MCG/ACT Inhalation AerosolIndications:M ild persistent asthma without complication Inhale 2 Puffs [...] Tablets before bedtime. 30 Tablet 11/26/2023 Active Melatonin 1 MG Oral Tablet Take 2 Tablets by mouth at bedtime. 30 Tablet 11/07/2023 4 Discontinu ed(Refill) Sennosides 8.6 MG Oral Tablet (Senokot) Take 2 Tablets by mouth in the morning and 2 Tablets before bedtime. 30 Tablet 11/07/2023 4 Discontinu ed(Refill) documented as of this encounter (statuses as of 11/26/2023) Active Problems Problem Noted Date Diagnosed Date [...] as of this encounter (statuses as of 11/26/2023) Resolved Problems Problem Noted Date Diagnosed Date [...] as of this encounter (statuses as of 11/26/2023) Immunizations Name Administration Dates Next Due COVID-19 [...] Telephone Encounter - Kathy Sweeney MD - 11/26/2023 4:32 PM EDTSigned Prescriptions: Disp Refills Melatonin 1 MG Oral Tablet 30 Tab*0 Sig: Take 2 Tablets by mouth at bedtime. Authorizing Provider: KATHY SWEENEY Sennosides 8.6 MG Oral Tablet (Senokot) 30 Tab*0 Sig: Take 2 Tablets by mouth in the morning and 2 Tablets before bedtime. Authorizing Provider: KATHY SWEENEY * Telephone Encounter - Abundio Caicedo [facility] - 11/26/2023 3:56 PM EDT Pending Prescriptions: Disp Refills Melatonin 1 MG Oral Tablet 30 Tab*0 Sig: Take 2 Tablets by mouth at bedtime. Sennosides 8.6 MG Oral Tablet (Senokot) 30 Tab*0 Sig: Take 2 Tablets by mouth in the morning and 2 Tablets before bedtime. * Telephone Encounter - Abundio Caicedo [facility] - 11/26/2023 3:54 PM EDT Melatonin and Sennosides last ordered by hospital provider. Please approve if appropriate. Thanks, Abundio Caicedo, PharmD Clinical Pharmacist [facility] [phone] 11/26/2023, 3:55 PM documented in this encounter Plan of Treatment Upcoming Encounters Date Type Department Care Team (Late st Contact Info) Description 11/28/2023 3:20 PM EDT Office Visit [facility] [place] [place] [address] [place] [address] Kathy Sweeney MD [address] [place] [address] 11/29/2023 10:40 AM EDT Telemedicine Neurosurgery, [address] [address] [facility], Traumatic Brain Injury [address] [place] [address] 12/22/2023 11:20 AM EST [facility] [place] [address] [place] [address] Kathy Sweeney MD [address] [place] [address] 01/09/2024 10:00 AM EST Laboratory Laboratory [facility] [address] [place] [phone] [facility] [address] [facility] [place], [place] [address] 01/16/2024 12:30 PM EST Office Visit Hematology/Oncology [facility] [address] [place], [place] [phone] Bindu Jones MD [address] [facility] [place], [place] [address] 03/21/2024 3:30 PM EST Office Visit Neurology [facility] [address] [facility] [place] [address] Abbie Arora PA-C [address] [place] [address] Health Maintenance Due Date Last Done Comments [...] exists Depression Screening 06/28/2024 06/29/2023, 09/03/19 15 CKD PHOS USE SMARTSET 41512 10/31/2024 09/2 06/2023, 10/31/2023, 10/30/2023, Additional history exists CKD HGB USE SMARTSET 83690 11/20/202411/20, 11/21/2023, 11/14/2023, Additional history exists Colonoscopy 07/08/2026 07/08/2021, 03/2021, 11/19/2015, Additional history exists DTap/Tdap Vaccines (2 - Td or Tdap) 11/07/2026 11/07/2016, 07/16/2010 Pneumococcal Vaccine: 65+ Years Completed 09/02/2014, 08/30/2010 Zoster Vaccines Completed 11/21/2019, 08/2019, 07/25/2007 COVID-19 Vaccine Discontinued 04/21/2020, 03/31/2020 VITAMIN D LEVEL ONCE IN A LIFETIME-USE SMARTSET# [id number] Completed 10/13/2020, 12/26/2019, 06/21/2018, Additional history exists [...] this encounter Medical Devices Implanted Type Area Leather Coater Device Identifier Shelf Expiration Date Model / Serial / Lot Alloderm 2x4 Sheet [id number] (8 Units) - [id number] Implanted:Qty : 8 on 11/15/2010 at [place] [facility] [place] Tissue - Human N/A: Esophagus LIFE [employer] VICENTA 05/06/2012 [id number] / / [id number] documented as of this encounter Advance Directives Documents on File Type Date Recorded Patient Master Fire Control Technician Expl anation Advance Directives and Living Will 05/05/2020 ADVANCE DIRECTIVE / LIVING WILL Power of All Terrain Vehicle Racer 05/05/2020 POWER OF A TTORNEY [employer] * [...] and were consensually agreed upon. Care Teams Precision Honing Machine Operator Relationship Specialty Start Date End Date Kathy Sweeney MD [address] [place] [address] PCP - General Family Medicine 11/22/22 documented as of this encounter
--- OUTSIDE RECORDS SUMMARY | 2023-12-04 22:07 | External Medical Summary | Summary of Care ---
Author Name Unknown Organization [facility] Address [address] [place] [address] Phone [phone] Care Team Providers Care Button Clamper Name Role Phone Kathy Sweeney MD Primary Care Provider [phone] Reason for Visit * Reason Onset Date Comments Hospital Follow-Up 11/24/2023 [facility] ([facility]) Encounter Details Date Type Department Care Team (Late st Contact Info) Description 11/24/[address] [address] Emerita Roy, JOSE DANIEL Hospital Follow-Up ([facility] ([facility])) Allergies Active Allergy Reactions Criticality Noted Date Comments Aspirin Anaphylaxis High 12/21/2016 Lip swelling Diphenhydramine Hcl Edema face/lips/tongue High 08/07 Ibuprofen Edema face/lips/tongue High 10/08/2002 Penicillins Unknown 10/08/2002 Red Dye Edema face/lips/tongue,Hives High 05/23/2023 documented as of this encounter (statuses as of 11/27/2023) Medications Medication Sig Dispensed Refills Start Date [...] as of this encounter (statuses as of 11/27/2023) Active Problems Problem Noted Date Diagnosed Date [...] as of this encounter (statuses as of 11/27/2023) Resolved Problems Problem Noted Date Diagnosed Date [...] as of this encounter (statuses as of 11/27/2023) Immunizations Name Administration Dates Next Due COVID-19 mRNA, LNP-s, No Pre serve, 2-Dose Series ([email or web address]) 04/21/2020,03/31/2020 Pneumococcal Conjugate Vacc, 13 Valent (Prevnar) [...] for follow up: [facility] #1 Admitted to: [facility], Date: 10/29/2023 [facility]23 Discharged to: Home, with Home Services Date: 11/23/2023 Diagnosis driving hospitalization: Fall/ SDH/ Rib Injury New medication: Tramadol Discontinued medication: Biscodyl, Enoxaparin, Lidocaine patch Attempted Phone Call First Attempt Call Outcome Left Voicemail/Message Emerita Roy RN Transitions of Care Note Reason for Referral:Recent Admission Phone visit for follow up: [facility] #2 Admitted to: [facility], Date: 10/29/2023 [facility], Date: 11/07/2023 Discharged to: Home, with Home Services Date: 11/23/2023 Diagnosis driving hospitalization: Fall/ SDH/ Rib Injury Grand daughter answered phone, states patient is not available. Gave message with my name and number for patient to return call. Attempted Phone Call Second Attempt Call Outcome Left Voicemail/Message Emerita Roy RN documented in this encounter Plan of Treatment Upcoming Encounters Date Type Department Care Team (Late st Contact Info) Description 11/28/2023 3:20 PM EDT Office Visit [facility] [address] [place] [address] [address] Kathy Sweeney MD [address] [place] [address] 11/29/2023 10:40 AM EDT Telemedicine Neurosurgery, [address] [address] [facility], Traumatic Brain Injury [address] [place] [address] 12/22/2023 11:20 AM EST Office Visit [facility] [address] [place] [address] Kathy Sweeney MD [address] [place] [address] [address] 01/09/2024 10:00 AM EST Laboratory Laboratory [facility] [place] [address] [place] [place] [phone] [facility] [address] [place] [address] 01/16/2024 12:30 PM EST Office Visit Hematology/Oncology [facility] [place] [address] [place] [address] [phone] Bindu Jones MD [address] [place] [address] [address] 03/21/2024 3:30 PM EST Office Visit Neurology [facility] [place] [address] [place] [address] [address] Abbie Arora PA-C [address] [address] Health Maintenance Due Date Last Done Comments [...] 06/28/2024 06/29/2023, 09/03/19 CKD PHOS USE SMARTSET 02458 10/31/202410/08, 10/31/2023, 10/30/2023, Additional history exists CKD HGB USE SMARTSET 20454 11/20/202411/20, 11/21/2023, 11/14/2023, Additional history exists Colonoscopy 07/08/2026 07/08/2021, 03/2021, 11/19/2015, Additional history exists DTap/Tdap Vaccines (2 - Td or Tdap) 11/07/2026 11/07/2016, 07/16/2010 Pneumococcal Vaccine: 65+ Years Completed 09/02/2014, 08/30/2010 Zoster Vaccines Completed 11/21/2019, 0 08/2019, 07/25/2007 COVID-19 Vaccine Discontinued 04/21/2020, 03/31/2020 VITAMIN D LEVEL ONCE IN A LIFETIME-USE SMARTSET# [id number] Completed 10/13/2020, 12/26/2019, 06/21/2018, Additional history exists [...] this encounter Medical Devices Implanted Type Area Utility Driver Device Identifier Shelf Expiration Date Model / Serial / Lot Alloderm 2x4 Sheet [id number] (8 Units) - [id number] Implanted:Qty : 8 on 11/15/2010 at OR [facility] [place] Tissue - Human N/A: Esophagus [employer]LL VICENTA 05/06/2012 [id number] / / [id number] documented as of this encounter Advance Directives Documents on File Type Date Recorded Patient Pig Sticker Expl anation Advance Directives and Living Will 05/05/2020 ADVANCE DIRECTIVE / LIVING WILL Power of Client Solutions Specialist 05/05/2020 POWER OF A TTORNEY [employer]ICAL * [...] and were consensually agreed upon. Care Teams Button Clamper Relationship Specialty Start Date End Date Kathy Sweeney MD [address] [place] [address] PCP - General Family Medicine 11/22/22 documented as of this encounter
--- OUTSIDE RECORDS SUMMARY | 2023-12-04 22:08 | External Medical Summary | Summary of Care ---
Author Name Unknown Organization [facility] Address [address] [place] [address] Phone [phone] Care Team Providers Care Services Engineer Name Role Phone Kathy Sweeney MD Primary Care Provider [phone] Encounter Details Date Type Department Care Team (Latest Contact Info) Description 10/29/2023 11:30 AM EDT - 10/29/2023 1:35 PM EDT Hospital Encounter Radiology Film File [address] [place] [address] Discharge Disposition: Home - Self Care Allergies Active Allergy Reactions Criticality Noted Date Comments Aspirin Anaphylaxis High 12/21/2016 Lip swelling Diphenhydramine Hcl Edema face/lips/tongue High 0707/2010 Ibuprofen Edema face/lips/tongue High 10/08/2002 Penicillins Unknown 10/08/2002 Red Dye Edema face/lips/tongue,Hives High 05/23/2023 documented as of this encounter (statuses as of 11/03/2023) Medications Medication Sig Dispensed Refills Start Date End Date Status polyethylene glycol 3350 (MIRALAX) 255 gram powderIndications:Ir ritable bowel syndrome with constipation Take 17 g by mouth as needed for Constipation. Dissolve one heaping tablespoon in 8 ounces of water or juice. 1 Bottle 2 9 Suspended Additional Information Albuterol Sulfate HFA 108 (90 Base) MCG/ACT Inhalation Aerosol SolutionIndications: Mild persistent asthma without complication USE 2 INHALATIONS ORALLY EVERY 4 HOURS NEEDED FORWHEEZING 54 g 3 3 Suspended Additional Information Atorvastatin Calcium 10 MG Oral Tablet (Lipitor)Indications :Mixed hyperlipidemia Take 1 Tablet by mouth in the morning. 90 Tablet 3 3 Suspended Additional Information traZODone HCl 50 MG Oral Tablet (Desyrel)Indications :Insomnia TAKE 1 TABLET AT BEDTIME 90 Tablet 3 3 Suspended Additional Information Lactobacillus Probiotic Oral Tablet Take 1 Tablet by mouth every evening. 4 Suspended Cetirizine HCl 10 MG Oral Tablet (ZyrTEC) TAKE 1 TABLET EVERY MORNING 90 Tablet 3 4 Suspended Additional Information Famotidine 20 MG Oral Tablet (Pepcid)Indications: Gastroesophageal reflux disease with esophagitis, unspecified whether hemorrhage Take 1 Tablet by mouth at bedtime. 30 Tablet 11 4 Suspended Additional Information Estradiol 0.1 MG/GM Vaginal Cream (Estrace)Indications :Recurrent UTI,Atrophic vulvovaginitis Administer 1 g into and around the vagina 1-3 times per week 42.5 g 3 4 Suspended Additional Information traMADol HCl 50 MG Oral Tablet (Ultram)Indications: Hereditary and idiopathic peripheral neuropathy Take 1 Tablet by mouth every 6 hours as needed (pain). 40 Tablet 2 4 Suspended Additional Information Patient taking differently:50 mg OralHS, Informant: Child, Reported on 10/29/2023 amLODIPine Besylate 5 MG Oral Tablet (Norvasc)Indications :HTN, goal below 140/90,Intermittent lightheadedness TAKE 1 TABLET EVERY MORNING 90 Tablet 2 4 Suspended Additional Information Fluticasone Propionate HFA 110 MCG/ACT Inhalation AerosolIndications:M ild persistent asthma without complication Inhale 2 Puffs by mouth in the morning and 2 Puffs before bedtime. 12 g 1 4 Suspended Additional Information Patient taking differently:2 Puff InhalationBID PRN, Shortness of Breath, Wheezing, Informant: Child, Reported on 10/29/2023 Pantoprazole Sodium 40 MG Oral Tablet Delayed Release (Protonix) Take 1 Tablet by mouth every evening. Suspended Lisinopril 20 MG Oral Tablet (Prinivil)Indication s:HTN, goal below 140/90 TAKE 1 TABLET EVERY MORNING 90 Tablet 1 4 Suspended Additional Information Montelukast Sodium 10 MG Oral Tablet (Singulair)Indicatio ns:Allergic rhinitis due to pollen, unspecified seasonality TAKE 1 TABLET BEFORE BEDTIME 90 Tablet 3 4 Suspended Additional Information documented as of this encounter (statuses as of 11/03/2023) Active Problems Problem Noted Date Diagnosed Date SDH (subdural hematoma) 10/29/2023 Chest heaviness 10/11/2023 [...] as of this encounter (statuses as of 11/03/2023) Resolved Problems Problem Noted Date Diagnosed Date [...] as of this encounter (statuses as of 11/03/2023) Immunizations Name Administration Dates Next Due COVID-19 mRNA, LNP-s, No Pre serve, 2-Dose Series (JK-Group) 04/21/2020,03/31/2020 Pneumococcal Conjugate Vacc, 13 Valent (Prevnar) 09/02/2014 Pneumococcal Polysaccharide PPV23 (Pneumovax) 08/30/2010 Seasonal Influenza, PF, 6 M & above, IM , (FluLaval or Fluzone) 10/13/2020,10/29/2019,12/07/2017,12/01 Seasonal Influenza, Quadriva lent Hd (Fluzone Hd) 11/22/2022,11/12/2021 Seasonal Influenza, Quadriva lent, No Preserve, IM 12/24/2015,12/15/2014 Seasonal Influenza, Trivalen t, (IIV3), with Preserv, (Fluzone) 10/22/2013,10/23/2012,11/23/2011,10/29 Seasonal Influenza, Trivalen t, Adjuvanted, 65+ YRS, [...] Care Team (Late st Contact Info) Description 11/13/2023 4:00 PM EDT Imaging Radiology [address] [place] [address] 12/22/2023 11:20 AM EST Office Visit Family Practice [facility] [address] [place] [address] Kathy Sweeney MD [address] [facility] [place] [address] 01/09/2024 10:00 AM EST Laboratory Laboratory [facility] [address] [place] [place] [phone] [facility] Lab [facility] [address] [facility] [address] [facility] [place] [address] 01/16/2024 12:30 PM EST Office Visit Hematology/Oncology [facility] [address] [place] [phone] Bindu Jones MD 200 [facility] [place] [address] 01/29/2024 9:20 AM EST Office Visit Dermatology, Kailey [address] [address] Rola Lam PABernaC [address] [place] [address] 03/21/2024 3:30 PM EST Office Visit Neurology [facility] [address] [place] [address] Abbie Arora PA-C [address] [address] Health Maintenance Due Date Last Done Comments Adult Wellness Visit 09/20/2013 09/20/2012 *BISPHONATE OR OTHER ACCEPTABLE MEDICATION NEEDED FOR OSTEOPOROSIS (REFER TO SMARTSET #1146) 05/09/2022 Influenza Vaccine (FLU shot) (#1) 2023 11/22/2022, 11/12/2021, 10/13/2020, Additional history exists DXA Scan 11/11/2023 11/10/2021, 10/08, 07/27/2015, Additional history exists HbA1c 11/23/2023 11/22/2022, 08/2021, 10/13/2020, Additional history exists Depression Screening 06/28/2024 06/29/2023, 09/03/19 15 GFR 11/02/2024 11/03/2023, 10/08, 11/01/2023, Additional history exists Albumin/Creatinine Ratio 11/12/2024 11/12/2021, 06/06 Colonoscopy 07/08/2026 07/08/2021, 03/2021, 11/19/2015, Additional history exists DTap/Tdap Vaccines (2 - Td or Tdap) 11/07/2026 11/07/2016, 07/16/2010 Pneumococcal Vaccine: 65+ Years Completed 09/02/2014, 08/30/2010 Zoster Vaccines Completed 11/21/2019, 08/2019, 07/25/2007 COVID-19 Vaccine Discontinued 04/21/2020, 03/31/2020 VITAMIN D LEVEL ONCE IN A LIFETIME-USE SMARTSET# [id number] Completed 10/13/2020, 12/26/2019, 06/21/2018, Additional history exists [...] this encounter Medical Devices Implanted Type Area Reshipping Clerk Device Identifier Shelf Expiration Date Model / Serial / Lot Alloderm 2x4 Sheet [id number] (8 Units) - [id number] Implanted:Qty : 8 on 11/15/2010 at OR [facility] [place] Tissue - Human N/A: Esophagus LIFE CELL VICENTA 05/06/2012 [id number] / / [id number] documented as of this encounter Procedures Procedure Name Priority Date/Time Associated Diagnosis Comments RADIOLOGY EXAM - GENERAL RAD (IMAGES ONLY,NO REPORT) Routine 10/29/2023 11:30 AM EDT documented in this encounter Results * RADIOLOGY EXAM - GENERAL RAD (IMAGES ONLY,NO REPORT) (10/29/2023 11:30 AM EDT) 10/29/2023 11:2 8 AM EDT Narrative Scheduling, Silent - 11/02/2023 9:32 AM EDT This is an imaging study not interpreted or resulted by a [employer] or [employer] contracted radiologist. Mane oLpez DO RADIOLOGY (RAD [facility]) documented in this encounter Advance Directives Documents on File Type Date Recorded Patient Inpatient Nursing Aide Expl anation Advance Directives and Living Will 05/05/2020 ADVANCE DIRECTIVE / LIVING WILL Power of Judicial Administrative Assistant 05/05/2020 POWER OF A TTORNEY MEDICAL * Full Code (Latest Code Status on File) Date Activated Date Inactivated Comments 10/29/2023 1:57 PM This order ref lects the patients wishes and were consensually agreed [...] and were consensually agreed upon. Care Teams Services Engineer Relationship Specialty Start Date End Date Kathy Sweeney MD [address] [facility] [place] [address] PCP - General Family Medicine 11/22/22 documented as of this encounter
--- OUTSIDE RECORDS SUMMARY | 2023-12-04 22:08 | External Medical Summary ---
Author Name Unknown Address Unknown Organization K01:[facility] - [address] [place] [address] Laboratory Report Ordering Provider Test Date Status ANTWONRAYMONDDIEGOStan 11/07/2023 09:42:00 Final Observation Date Value Abnormality Reference (Units ) Status LMW Heparin [Units/volume] in Platelet poor plasma by Chromogenic method 11/07/2023 09:42:00 0.68 Above high normal <0.10 (IU/mL) Final Low molecular weight heparin 's therapeutic range is 0.6 - 1.00 I.U./mL. Performing Location [facility] - [address] [place] [address]
--- OUTSIDE RECORDS SUMMARY | 2023-12-04 22:08 | External Medical Summary | Summary of Care ---
Author Name Unknown Organization [facility] Address [address] [place] [address] Phone [phone] Care Team Providers Care Movie Extra Name Role Phone Kathy Sweeney MD Primary Care Provider [phone] Reason for Referral * Evaluate & Treat - Unlimited Visits (Within 10 days (routine)) - Authorized Specialty Diagnoses / Procedures Referred By Ester amanda Referred To Contact Endocrinology/Metabolism / Endocrinology Diagnoses Thyroid nodule Gigi Rios DO [address] [place] [address] Referral ID Status Reason Start Date Expiration Date Visits Requested Visits Authorized [id number] Authorized Specialty Services Required 10/30/2023 999 [id number] Question Answer Referral Priority Within 10 days (routine) Where should this appointment be scheduled? [facility] For what condition is the patient being referred? Thyroid Issues For which thyroid condition are you referring? Thyroid Nodule Comments Discharge Order * Precert (Within 10 days (routine)) - Authorized Specialty Diagnoses / Procedures Referred By Ester amadna Referred To Contact Radiology Diagnoses SDH (subdural hematoma) (HCC) Procedures CT HEAD/BRAIN WO CONTRAST Joyce Matt DO [address] [place] [address] Referral ID Status Reason Start Date Expiration Date V isits Requested Visits Authorized [id number] Authorized 11/12/2023 999 999 Reason for Visit * Reason Comments Fall transfer of records * Auth/Cert Specialty Diagnoses / Procedures Referred By Ester amanda Referred To Contact Diagnoses Trauma fall/subdural hemmorhage Alesha Mccormack MD [address] [place] [address] Emergency Medicine [facility] [address] [place] [address] Referral ID Status Reason Start Date Expiration Date Visits Re quested Visits Authorized [id number] Encounter Details Date Type Department Care Team (Latest Contact Info) Description 10/29/2023 1:36 PM EDT - 11/07/2023 3:00 PM EDT Hospital Encounter [id number] [facility], [facility] 5th Floor [address] [place] [address] Mane Lopez DO [address] [place] [address] Alesha Mccormack MD [address] [place] [address] Mar Castano MD [address] [place] [address] Joseluis Nixon MD [address] [place] [address] Jose Harrington MD [address] [place] [address] Discharge Disposition: Home - Self Care Allergies Active Allergy Reactions Criticality Noted Date Comments Aspirin Anaphylaxis High 12/21/2016 Lip swelling Diphenhydramine Hcl Edema face/lips/tongue High 07/2 07/2010 Ibuprofen Edema face/lips/tongue High 10/08/2002 Penicillins Unknown 10/08/2002 Red Dye Edema face/lips/tongue,Hives High 05/23/2023 documented as of this encounter (statuses as of 11/08/2023) Medications Medication Sig Dispensed Refills Start Date [...] MG Oral Tablet (Lipitor)Indication s:Mixed hyperlipidemia Take 1 Tablet by mouth in the morning. 90 Tablet 3 3 Active traZODone HCl 50 MG Oral Tablet (Desyrel)Indication s:Insomnia TAKE 1 TABLET AT BEDTIME 90 Tablet 3 3 Active Lactobacillus Probiotic Oral Tablet Take 1 Tablet by mouth every evening. 4 Active Cetirizine HCl 10 MG Oral Tablet (ZyrTEC) TAKE 1 TABLET EVERY MORNING 90 Tablet 3 4 Active Famotidine 20 MG Oral Tablet (Pepcid)Indications :Gastroesophageal reflux disease with esophagitis, unspecified whether hemorrhage Take 1 Tablet by mouth at bedtime. 30 Tablet 11 4 Active Estradiol 0.1 MG/GM Vaginal Cream (Estrace)Indication s:Recurrent UTI,Atrophic vulvovaginitis Administer 1 g into and around the vagina 1-3 times per week 42.5 g 3 4 Active amLODIPine Besylate 5 MG Oral Tablet (Norvasc)Indication s:HTN, goal below 140/90,Intermittent lightheadedness TAKE 1 TABLET EVERY MORNING 90 Tablet 2 4 Active Fluticasone Propionate HFA 110 MCG/ACT Inhalation AerosolIndications: Mild persistent asthma without complication Inhale 2 Puffs by mouth in the morning and 2 Puffs before bedtime. 12 g 1 4 Active Pantoprazole Sodium 40 MG Oral Tablet Delayed Release (Protonix) Take 1 Tablet by mouth every evening. Active Montelukast Sodium 10 MG Oral Tablet (Singulair)Indicati ons:Allergic rhinitis due to pollen, unspecified seasonality TAKE 1 TABLET BEFORE BEDTIME 90 Tablet 3 4 Active Melatonin 1 MG Oral Tablet Take 2 Tablets by mouth at bedtime. 30 Tablet 4 Active Acetaminophen 325 MG Oral Tablet (Tylenol) Take 3 Tablets by mouth in the morning and 3 Tablets at noon and 3 Tablets before bedtime. 30 Tablet 4 Active Fluticasone Furoate 200 MCG/ACT Inhalation Aerosol Powder Breath Activated (ARNUITY ellipta) Inhale 1 Puff by mouth every evening. 30 Each 4 Active Enoxaparin Sodium 30 MG/0.3ML Injection Solution Prefilled Syringe Inject 20 mg under the skin in the morning and 20 mg before bedtime. Do all this for 14 days. 5.6 mL 4 024 Active Lidocaine 4 % External Patch (Aspercreme) Place 1 Patch over 12 hours topically on the skin in the morning. 30 Patch 4 Active Sennosides 8.6 MG Oral Tablet (Senokot) Take 2 Tablets by mouth in the morning and 2 Tablets before bedtime. 30 Tablet 4 Active traMADol HCl 50 MG Oral Tablet (Ultram)Indications :Hereditary and idiopathic peripheral neuropathy Take 1 Tablet by mouth every 6 hours as needed (pain). 40 Tablet 2 4 Discontinued Meclizine HCl 25 MG Oral Tablet (Antivert) Take 1 Tablet by mouth 3 times a day as needed for Dizziness. 30 Tablet 1 4 024 Discontinued(Ky dication List Clean Up) Sulfamethoxazole-Tr imethoprim 800-160 MG Oral Tablet (Bactrim DS) Take 1 Tablet by mouth in the morning and 1 Tablet before bedtime. Do all this for 10 days. Until gone.. 20 Tablet 4 024 Discontinued(Ky dication List Clean Up) Lisinopril 20 MG Oral Tablet (Prinivil)Indicatio ns:HTN, goal below 140/90 TAKE 1 TABLET EVERY MORNING 90 Tablet 1 4 024 Discontinued documented as of this encounter (statuses as of 11/08/2023) Active Problems Problem Noted Date Diagnosed Date Multiple fractures of ribs of right side 024 SDH (subdural hematoma) 10/29/2023 Chest heaviness 10/11/2023 [...] as of this encounter (statuses as of 11/08/2023) Resolved Problems Problem Noted Date Diagnosed Date [...] as of this encounter (statuses as of 11/08/2023) Immunizations Name Administration Dates Next Due COVID-19 [...] Sign Reading Time Taken Comments Blood Pressure 137/55 11/07/2023 6:12 AM EDT Pulse 91 11/07/2023 6:12 AM EDT Temperature 36.4 C (97.5 F) 11/07/2023 6:12 AM ED T Respiratory Rate 16 11/07/2023 6:12 AM EDT Oxygen Saturation 94% 11/07/2023 6:12 AM EDT Inhaled Oxygen Concentration - - Weight 61.4 kg (135 lb 5.8 oz) 10/31/2023 6:00 A M EDT Height 160 cm (5' 3") 10/29/2023 6:30 PM EDT Body Mass Index 23.98 10/29/2023 6:30 PM EDT documented in this encounter Functional Status [...] No 10/29/2023 documented as of this encounter Discharge Summaries * Samy Lynch CRNP - 11/07/2023 2:18 PM EDT [address] [address] Admission Date: 10/29/2023 Discharge Date: 11/07/2023 DISCHARGE DIAGNOSES: Active Hospital Problems Diagnosis Multiple fractures of ribs of right side SDH (subdural hematoma) (HCC) Colitis Resolved Hospital Problems No resolved problems to display. Other Significant Diagnoses: none CONDITION ON DISCHARGE: good Cognition: normal DISPOSITION ON DISCHARGE: SNF FOLLOW-UP: Future Appointments Appt Date/Time Provider Department 11/13/2023 4:00 PM [address]1 [facility] Radiology [address] 11/21/2023 10:30 AM [facility] 11/29/2023 10:40 AM [facility] 12/22/2023 11:20 AM Kathy Sweeney MD Family Practice [facility] 01/09/2024 10:00 AM [facility] 01/16/2024 12:30 PM Bindu Jones MD Hematology/Oncology [facility] 01/29/2024 9:20 AM Rola Lam PA-C Dermatology, [facility] 03/21/2024 3:30 PM Abbie Arora PA-C Neurology [facility] Outpatient testing already scheduled: None Outpatient testing that needs to be arranged: None Inpatient test results pending: None MEDICATIONS ON DISCHARGE: MEDICATION UPDATES AT DISCHARGE START taking these medications INSTRUCTIONS Acetaminophen 325 MG Tablet Commonly known as: Tylenol Take 3 Tablets by mouth in the morning and 3 Tablets at noon and 3 Tablets before bedtime. Enoxaparin 30 MG/0.3ML injection Commonly known as: Lovenox Inject 20 mg under the skin in the morning and 20 mg before bedtime. Do all this for 14 days. fluticasone Furoate 200 MCG/ACT Aepb inhaler Commonly known as: ARNUITY ellipta Inhale 1 Puff by mouth every evening. Lidocaine 4 % Ptch Commonly known as: Aspercreme Start taking on: November 08, [address] Place 1 Patch over 12 hours topically on the skin in the morning. melatonin 1 MG Tablet Take 2 Tablets by mouth at bedtime. senna Tablet Commonly known as: Senokot Take 2 Tablets by mouth in the morning and 2 Tablets before bedtime. CHANGE how you take these medications INSTRUCTIONS Fluticasone 110 MCG/ACT inhaler Commonly known as: Flovent HFA What changed: when to take this reasons to take this Inhale 2 Puffs by mouth in the morning and 2 Puffs before bedtime. CONTINUE taking these medications INSTRUCTIONS albuterol HFA 108 (90 BASE) MCG/ACT inhaler USE 2 INHALATIONS ORALLY EVERY 4 HOURS NEEDED FORWHEEZING amLODIPine 5 MG Tablet Commonly known as: Norvasc TAKE 1 TABLET EVERY MORNING atorvaSTATin 10 MG Tablet Commonly known as: Lipitor Take 1 Tablet by mouth in the morning. Cetirizine 10 MG Tablet Commonly known as: ZyrTEC TAKE 1 TABLET EVERY MORNING Estradiol 0.1 MG/GM vaginal cream Commonly known as: Estrace Administer 1 g into and around the vagina 1-3 times per week Famotidine 20 MG Tablet Commonly known as: Pepcid Take 1 Tablet by mouth at bedtime. Lactobacillus Probiotic Tabs Take 1 Tablet by mouth every evening. montelukast 10 MG Tablet Commonly known as: Singulair TAKE 1 TABLET BEFORE BEDTIME pantoprazole 40 MG Tbec Commonly known as: Protonix Take 1 Tablet by mouth every evening. Polyethylene Glycol 3350 powder Commonly known as: MiraLax Take 17 g by mouth as needed for Constipation. Dissolve one heaping tablespoon in 8 ounces of wateror juice. traZODone 50 MG Tablet Commonly known as: Desyrel TAKE 1 TABLET AT BEDTIME STOP taking these medications Lisinopril 20 MG Tablet Commonly known as: Prinivil sulfamethoxazole-trimethoprim DS 800-160 MG per tablet Commonly known as: Bactrim DS traMADol 50 MG Tablet Commonly known as: Ultram ALLERGIES: Aspirin, Benadryl [diphenhydramine hcl], Ibuprofen, Red dye, and Penicillins INSTRUCTIONS: Diet: Normal diet Activity: No strenuous activity for 24 hours Code Status: Full Code Indwelling devices: none ADMISSION HISTORY & PHYSICAL EXAM (focused): Cherelle Bird is an 83 year old female patient with a pmhx of dementia, hyperparathyroidism,IBS, GERD, B-cell lymphoma, Dyslipidemia, HTN, Sjogren colitis (recently discharged for colitis and on Zosyn) was walking in her home in the morning and she bumped into something which caused her to fall downand struck her head on the concrete floor. It was an unwitnessed fall and her son found her on the floor. Unknown LOC. She was brought to [facility] and was scanned. At which point she was found to have a subdural and two right rib fractures. At which point she was transferred to [facility] via life flight. Before getting to the trauma bay patient was given 2g of Keppra, 1L of NSS, and 4.5 grams of Zosyn. Vital en route ranges from 120-140 systolic, 70HR, and O2 saturation in the high 90s on RA. GCS of 14 (due to confusion) Primary survey intact. Secondary survey was notable for right lateral chest wall tenderness, RLQ abdominal tenderness, and minor ecchymosis in her sacral region. Temperature: 36.9. E-fast negative. Blood thinners: none Injury Complex: Tiny acute right parafalcine subdural hematoma; measuring 3mm thick Small right posterior scalp contusion Right rib fractures Head: normocephalic / atraumatic Eyes: pupils 2 mm, bilaterally reactive to light, extraocular muscles intact ENT: tympanic membranes bilaterally clear, oropharynx clear Neck: supple, non-tender, trachea midline Respiratory: clear to auscultation bilaterally Cardiovascular: regular rate and rhythm, palpable peripheral pulses present Abdomen: soft, non-tender, non-distended, normal bowel sounds Back: no tenderness across thoracic / lumbar spine Pelvis: non-tender, stable to anterior-posterior/lateral compression Rectal: normal sphincter tone, no gross blood Genitourinary: normal female genitalia, No blood noted Musculoskeletal: no palpable long bone deformities, motor / sensation grossly intact Skin: grossly intact Neurologic: alert and oriented x3 HOSPITAL COURSE (focused): You were admitted to the hospital on 10/29/23 after a mechanical fall. You were found to have the following injuries: Small right posterior scalp hematoma. Unchanged small right parafalcine subdural hemorrhage Age indeterminate mild buckling of the anterior right 6th and 7th rib (favored to be chronic) Sigmoid colitis Sigmoid colitis You were recently discharged from the hospital for colitis after being treated with zosyn (antibiotic). Your abdominal imaging showed colitis and elevated wbc (lab). Zosyn started on this admission, and the you were transitioned to cipro/flagyl (antibiotics). You were seen by infectious disease whorecommended discontinuation of your antibiotics. Head Trauma You were seen by neurosurgery for your head bleed. You were watched closely with neurological checks. You were given medication (Keppra) to prevent seizures. You need to continue taking this medication after discharge. You had a repeat CAT scan to ensure that the head bleed remained stable. You will need to follow-up with neurosurgery clinic in 2 weeks. You also should not take any of the following over the counter medications that can lead to increased bleeding. (Aspirin, Motrin aka Ibuprofen,Aleve aka Naproxen, and Fish Oil) Chest Trauma Your broken ribs were monitored with chest x-ray and found to remain stable while in the hospital. You should continue to take pain medication as prescribed, cough, take deep breaths and use your incentive spirometer at least 10 times per hour while you are awake for the next 4-6 weeks to promote lung exercise and hygiene. Return to the Emergency Department for any sudden shortness of breath or difficulty breathing. Do not lift, push, or pull more than ten pounds for 8 weeks. Follow-up with your primary care provider as an outpatient. Wound You were seen by wound for alterations of skin to right heel and right great toe, noted on admission. Keep right great toe and right heel open to air. Elevate heels off of bed at all times, utilize heel boots or pillows.. Turn and reposition every 2hr and as needed. Limit sitting to 2hrs at a time,utilize EHOB waffle cushion or equivalent while sitting out of bed. Consider outpatient wound care or podiatry follow up if heel wound fails to heal > reach out to primary care provider to make appointment INCIDENTAL FINDINGS: -Heterogeneous density of the thyroid gland with the larger nodule measuring up to 2.0 cm at the right thyroid lobe > you will need to follow-up with Endocrinology in am out-pt setting -Dilation of the lateral and, to a lesser extent, the 3rd ventricles disproportionate to the degreeof cerebral volume loss, similar to prior examination. Although nonspecific, findings can be seen with normal pressure hydrocephalus in appropriate clinical setting. Follow-up with your primary care provider after discharge for the above incidentals Operations & Procedures: None Complications: none significant SIGNIFICANT RESULTS: Vital Signs (last recorded): Most Recent Systolic BP: 137 mmHg (11/07/23611) Most Recent Diastolic BP: 55 mmHg (11/07/23611) Pulse: 91 (11/07/23611) Resp: 16 (11/07/23611) Most Recent Temperature: 36.39 C (11/07/23611) Weight: 61.4 kg (135 lb 5.8 oz) (10/31/23599) SpO2: 94 % (11/07/23611) Labs: BLOOD COUNT: WBC, Hgb, Platelets (see below for most recent value): Lab Results Component Value Date/Time WBC 12.79 (H) 11/07/2023 08:51 AM WBC 16.47 (H) 12/26/2019 12:12 PM HGB 15.0 11/07/2023 08:51 AM HGB 14.3 12/26/2019 12:12 PM PLT 344 11/07/2023 08:51 AM PLT 300 12/26/2019 12:12 PM Imaging (focused): Chest X-Ray: no acute injuries FAST Ultrasound: negative CT Scan Head: acute findings CT Scan Chest: acute findings; incidentals: bilateral thyroid nodules CT Scan Abdomen/Pelvis: acute findings CONSULTS ORDERED: NEUROSURGERY CONSULT IP WOUND/OSTOMY CONSULT IP ADULT SPEECH THERAPY CONSULT IP (ACUTE CARE REHAB) ADULT OCCUPATIONAL THERAPY CONSULT IP ADULT PHYSICAL THERAPY CONSULT IP INFECTIOUS DISEASE CONSULT IP ANTI-COAGULATION CONSULT IP REFERRING PHYSICIAN: REF: [facility] PROVIDER: PCP: Kathy Sweeney MD [address] [place] [address] / [place] [address] (office) [phone] (fax) Note: To contact a physician responsible for this patients hospital care, please call [employer]Link [phone]. documented in this encounter Discharge Instructions * Discharge Instr - AVS* Samy Lynch CRNP - 11/01/2023 11:07 AM EDT Discharge Date: 11/07/23 You may call the department of Trauma surgery at during business hours for any questions or test results. For after-hours emergencies call [phone] and have your doctor paged. The information below provides you with the instructions and the list of medications you need to betaking following discharge from the hospital. If you have any questions, please ask before leaving.Please carry this letter with you when you see your doctor in the clinic. If you have questions, you can reach us at the numbers above. Brief summary of your inpatient care: You were admitted to the hospital on 10/29/23 after a mechanical fall. You were found to have the following injuries: Small right posterior scalp hematoma. Unchanged small right parafalcine subdural hemorrhage Age indeterminate mild buckling of the anterior right 6th and 7th rib (favored to be chronic) Sigmoid colitis Sigmoid colitis You were recently discharged from the hospital for colitis after being treated with zosyn (antibiotic). Your abdominal imaging showed colitis and elevated wbc (lab). Zosyn started on this admission, and the you were transitioned to cipro/flagyl (antibiotics). You were seen by infectious disease whorecommended discontinuation of your antibiotics. Head Trauma You were seen by neurosurgery for your head bleed. You were watched closely with neurological checks. You were given medication (Keppra) to prevent seizures. You need to continue taking this medication after discharge. You had a repeat CAT scan to ensure that the head bleed remained stable. You will need to follow-up with neurosurgery clinic in 2 weeks. You also should not take any of the following over the counter medications that can lead to increased bleeding. (Aspirin, Motrin aka Ibuprofen,Aleve aka Naproxen, and Fish Oil) Chest Trauma Your broken ribs were monitored with chest x-ray and found to remain stable while in the hospital. You should continue to take pain medication as prescribed, cough, take deep breaths and use your incentive spirometer at least 10 times per hour while you are awake for the next 4-6 weeks to promote lung exercise and hygiene. Return to the Emergency Department for any sudden shortness of breath or difficulty breathing. Do not lift, push, or pull more than ten pounds for 8 weeks. Follow-up with your primary care provider as an outpatient. Wound You were seen by wound for alterations of skin to right heel and right great toe, noted on admission. Keep right great toe and right heel open to air. Elevate heels off of bed at all times, utilize heel boots or pillows.. Turn and reposition every 2hr and as needed. Limit sitting to 2hrs at a time,utilize EHOB waffle cushion or equivalent while sitting out of bed. Consider outpatient wound care or podiatry follow up if heel wound fails to heal > reach out to primary care provider to make appointment INCIDENTAL FINDINGS: -Heterogeneous density of the thyroid gland with the larger nodule measuring up to 2.0 cm at the right thyroid lobe > you will need to follow-up with Endocrinology in am out-pt setting -Dilation of the lateral and, to a lesser extent, the 3rd ventricles disproportionate to the degreeof cerebral volume loss, similar to prior examination. Although nonspecific, findings can be seen with normal pressure hydrocephalus in appropriate clinical setting. Follow-up with your primary care provider after discharge for the above incidentals Your doctors during this hospitalization included: Trauma surgery: Dr. Harrington Your primary diagnosis at discharge was as listed above Inpatient test results pending: None Operations & Procedures: None Complications: none significant Advance Directive Documented: Advance Directive Does the Patient have an Advance Directive? Yes Diet: Normal diet Activity: No strenuous activity for 24 hours Driving: Don't drive until you are off narcotics for one full week and can walk normally and firmlyapply the brake without pain, and you have followed up with neurosurgery in an out-patient setting Date you may return to work or school: Based on further instruction reviewed by surgeon after follow up visit. See your primary care physician (Kathy Sweeney, MD) in 1 week(s). Special Instructions: Please keep all appointments as scheduled. Go to your nearest emergency department if you experience any of the following: sustained fever above 101.5, inability to eat, drink, or take pain medication, numbness/tingling in your extremities, severe nausea or vomiting. Do not drive or operate heavy machinery while taking prescription pain medication. You may take over the counter stool softeners to prevent constipation while taking pain medication. documented in this encounter Progress Notes * Katalina Hussein RP - 11/07/2023 12:31 PM EDT PHARMACY ENOXAPARIN IP CONSULT [address] [address] Name: Cherelle Hammond Location: [place] [address]/A Date: 11/07/2023 Time: 12:31 PM GENERAL INFORMATION: Height: 160 cm (5' 3") (10/29/23 1830) Weight: 61.4 kg (135 lb 5.8 oz) (10/31/23 0600) BMI: 24.22 (10/29/23 183) Principle Problem: No Principal Problem: There is no principal problem currently on the Problem List. Please update the Problem List and refresh. Criteria met to warrant anti-Xa level monitoring for enoxaparin: Age greater than or equal to 65 years and CrCl less than or equal to 45 mL/min Prior to admission The patient was not on another anticoagulant LABS: Lab Results Component Value Date/Time CREAT 0.7 11/07/2023 08:51 AM CREAT 0.7 11/06/2023 08:35 AM CREAT 0.6 11/05/2023 04:28 AM CREAT 0.9 12/26/2019 12:12 PM CREAT 0.9 10/01/2019 10:32 AM CREAT 0.8 11/12/2018 03:31 PM Lab Results Component Value Date/Time HGB 15.0 11/07/2023 08:51 AM HGB 15.3 11/06/2023 08:35 AM HGB 14.1 11/05/2023 04:28 AM HGB 14.3 12/26/2019 12:12 PM HGB 15.3 10/01/2019 10:32 AM HGB 14.0 11/12/2018 03:31 PM Lab Results Component Value Date/Time PLT 344 11/07/2023 08:51 AM PLT 342 11/06/2023 08:35 AM PLT 333 11/05/2023 04:28 AM PLT 300 12/26/2019 12:12 PM PLT 310 10/01/2019 10:32 AM PLT 279 11/12/2018 03:31 PM Lab Results Component Value Date/Time INR 1.2 10/29/2023 02:04 PM Serum creatinine: 0.7 mg/dL 11/07/23 0851 Estimated creatinine clearance: 44.1 mL/min Nomogram selection: . Anti-Xa Level (units/mL) Hold Next Dose Dosage Change Next Anti-Xa Level Less than 0.2 No Increase dose(s) by 10 mg 4 hours after 4th dose of new dosing regimen 0.2-0.5 No No Within 1 week Greater than 0.5-1.0 No Evaluate renal function for acute or chronic insufficiency necessitating change to SubQ heparin, ifenoxaparin remains appropriate decrease dose(s) by 10 mg 4 hours after 4th dose of new dosing regimen Greater than 1.0 Consider the flow diagram for dosing and monitoring guidance Lab Results Component Value Date/Time HEPLMWT 0.68 (H) 11/07/2023 09:42 AM Date Dose(mg) Frequency Date & Time of Last Dose Anti-Xa Level (units/mL) New Dose Next Anti-XaLevel Due 11/04 30 mg q12h 11/06 11/06 30 mg q12h 11/06 0608 0.68 20 mg q12h 11/08 1000 Recommendation: The current anti-Xa level was drawn early and is above goal range. Decrease current enoxaparin regimen to 20 mg Q12H and obtain new anti-Xa level 4 hours after next dose on 11/08 at 1000. Pharmacy will continue to follow and adjust dose as appropriate. Please contact Pharmacy at [phone] for any questions. * Anni Catherine CRNP - 11/07/2023 9:37 AM EDT PROGRESS NOTE - Trauma Surgery [facility] [address] Name: Cherelle Hammond Location: [facility] B525/A Date: 11/07/2023 Time: 9:37 AM HOSPITAL DAY#: 9 ROUNDING SURGEON: Dr. Harrington ADMISSION DATE: 10/29/2023 OPERATIONS / PROCEDURES: None INJURY COMPLEX: Active Problems: Colitis (POA: Yes) SDH (subdural hematoma) (HCC) (POA: Unknown) POA = Present On Admission INTERIM HISTORY (LAST 24 HOURS): No acute events overnight. Patient got authorization for SNF today. The patient was excited that she could go today. PHYSICAL EXAMINATION: Most Recent Vital Signs: BP: 137 mmHg/55 mmHg (11/07/23611) Pulse: 91 (11/07/23611) Resp: 16 (11/07/23611) Temp: 36.39 C (11/07/23611) Temp Summary: Temp Min: 36.4 C (97.5 F) Max: 37 C (98.6 F) SpO2: 94 % (11/07/23611) O2 flow rate: Supplemental O2 Delivery: Room Air, None (11/07/23611) SpO2: 94 % (11/07/23611) Vital Signs Last 24 Hours: Systolic BP: Most Recent Systolic BP Av.6 mmHg Min: 130 mmHg Max: 140 mmHg Temperature: Most Recent Temperature Av.7 C Min: 36.39 C Max: 37 C Pulse: Pulse Av Min: 90 Max: 104 Respirations: Resp Av.8 Min: 16 Max: 18 SpO2: SpO2 Av.8 % Min: 94 % Max: 98 % Intake/Output Summary (Last 24 hours) at 11/07/2023 0937 Last data filed at 11/07/2023 0608 Gross per 24 hour Intake 840 ml Output 575 ml Net 265 ml Head: normocephalic / atraumatic Eyes: pupils 3 mm, bilaterally reactive to light Neck: trachea midline Respiratory: regular respiratory rate Cardiovascular: regular rate and rhythm, palpable peripheral pulses present Abdomen: soft, non-tender, non-distended Musculoskeletal: no palpable long bone deformities, motor / sensation grossly intact Skin: scattered ecchymosis in various stages of healing Neurologic: alert and oriented x3 DEVICES: Orr: no TEDs/SCDs: yes Cervical Collar: no Thoracolumbar Fixation: no DIET: regular ACTIVITY LEVEL: as tolerated ALLERGIES: Aspirin, Benadryl [diphenhydramine hcl], Ibuprofen, Red dye, and Penicillins LABORATORIES: Labs reviewed as indicated below: Latest Reference Range & Units 11/07/23 08:51 SODIUM 135 - 146 mmol/L 134 (L) POTASSIUM 3.5 - 5.1 mmol/L 4.0 CHLORIDE 98 - 107 mmol/L 99 CO2 22 - 32 mmol/L 21 (L) BUN 6 - 20 mg/dL 14 CREATININE 0.5 - 1.0 mg/dL 0.7 EGFR >=60 mL/min 87 ANION GAP 7 - 15 mmol/L 14 GLUCOSE 70 - 120 mg/dL 200 (H) CALCIUM 8.4 - 10.2 mg/dL 10.0 CBC Rpt ! WBC 4.00 - 10.80 K/uL 12.79 (H) RBC 3.85 - 5.15 M/uL 5.33 HGB 12.0 - 15.3 g/dL 15.0 HCT 36.0 - 45.2 % 47.3 (H) MCV 81.5 - 97.5 fL 88.7 MCH 27.0 - 34.0 pg 28.1 MCHC 32.0 - 36.0 g/dL 31.7 RDW 11.5 - 15.5 % 15.6 PLT 140 - 400 K/uL 344 MPV 6.6 - 11.1 fL 8.6 CULTURES / SENSITIVITIES: -no new cultures RADIOGRAPHIC STUDIES: -no new studies ASSESSMENT/PLAN: Right scalp contusion SDH Parafalcine -Neurosurgery consulted -non-op management -Repeat CT scan is stable -Hold AC/AP for 14 days (not on any prior to admission) -Keppra for 7 days (done) -Close neuro checks -Follow up with Neurosurgery in 2 weeks Age indeterminate right 6-7 rib fractures (non-tender) -Non-tender on exam -CXR stable -Aggressive pulmonary toilet -OOB and mobilizers -Adequate pain control -No lifting over 10 pounds for 8 weeks -Follow up with Trauma Surgery in 2 weeks with CXR, can be tele med since from farther aware and unsure of the chronicity of these fractures Right heel and 1st toe pressure wound, present on admission -Evaluated by wound -Keep right great toe and right heel open to air. Elevate heels off of bed at all times, utilize heel boots or pillows. -Turn and reposition q2hr and PRN. -Limit sitting to 2hrs at a time, utilize EHOB waffle cushion or equivalent while sitting OOB. -Call with changes in wound appearance, non-blanchable erythema or new concerns. -Consider outpatient wound care or podiatry follow up if heel wound fails to heal. Colitis, present on admission -Had signs of colitis, abdominal pain, and elevated WBC count on admission here -Was previously admitted to [facility] for colitis where she was treated with 7d of antibiotics -Received 2 days of Zosyn on admission here -10/28-10/30 -Transitioned to oral Cipro and Flagyl -Completed 3 days -ID evaluated, appreciate recs -Recommend stopping all antibiotics as she was already completely treated for her colitis -Monitor clinically -Stopped Cipro and Flagyl 11/02 GERD -continue precinct captain pepcid and protonix DLD -continue precinct captain Lipitor HTN -continue precinct captain Norvasc -Hold home Lisinopril Seasonal allergies -continue precinct captain Zyrtec Asthma -continue precinct captain Singulair -continue precinct captain Ventolin -continue precinct captain Flonase Sleep/Mood -continue precinct captain Trazodone Urinary retention -Orr placed 11/01 for urinary retention -orr removed 11/04/23 -Straight cath protocol -Likely related to inactivity -Encourage her to get OOB and mobilize to bathroom DVT Prophylaxis -TEDs/SCDs -Lovenox Bowel regimen -Colace -senna -Miralax -added dulcolax today -last BM 11/03/23 Pain control -ATC Tylenol -lidocaine patch Dispo - discharge to [facility] today Patient's decisional capacity: has capacity to make decisions Communication with Patient/Family: No meeting held. Goals of Care: decrease pain and discomfort Associated attestation - Jose Harrington MD - 11/07/2023 4:28 PM EDT I have reviewed the advanced practitioner's documentation on the date of service referenced in note, and I agree with, and take responsibility for the plan of care. I spent a total of 34 minutes coordinating, documenting, and providing care for this patient excluding time spent in the performance of separately billed services or time spent by another provider/QHP. Stable Dispo planning * Zoë Tyler MD - 11/06/2023 6:12 AM EDT PROGRESS NOTE - Trauma Surgery [facility] [address] Name: Cherelle Hammond Location: [facility] B525/A Date: 11/06/2023 Time: 11:25 AM HOSPITAL DAY#: 8 ROUNDING SURGEON: Dr. Harrington ADMISSION DATE: 10/29/2023 OPERATIONS / PROCEDURES: None INJURY COMPLEX: Active Problems: Colitis (POA: Yes) SDH (subdural hematoma) (HCC) (POA: Unknown) POA = Present On Admission INTERIM HISTORY (LAST 24 HOURS): No acute events overnight. Patient afebrile, vital signs stable and WNL. Voided 4x but also straight cath'd for 500cc x3. Feeling well this morning. Denies any pain, only complaint is that she is feeling cold. Denies having abdominal pain. Has not recently had bowelmovement. PHYSICAL EXAMINATION: Most Recent Vital Signs: BP: 137 mmHg/61 mmHg (11/06/23 1020) Pulse: 96 (11/06/23 1020) Resp: 16 (11/06/23 1020) Temp: 36.72 C (11/06/23 1020) Temp Summary: Temp Min: 36.6 C (97.9 F) Max: 37 C (98.6 F) SpO2: 95 % (11/06/23 1020) O2 flow rate: Supplemental O2 Delivery: Room Air, None (11/06/23 1020) SpO2: 95 % (11/06/23 1020) Vital Signs Last 24 Hours: Systolic BP: Most Recent Systolic BP Av.6 mmHg Min: 127 mmHg Max: 144 mmHg Temperature: Most Recent Temperature Av.7 C Min: 36.61 C Max: 37 C Pulse: Pulse Av.6 Min: 86 Max: 96 Respirations: Resp Av.4 Min: 16 Max: 18 SpO2: SpO2 Av.4 % Min: 92 % Max: 96 % Intake/Output Summary (Last 24 hours) at 11/06/2023 1125 Last data filed at 11/06/2023 1047 Gross per 24 hour Intake 720 ml Output 1585 ml Net -865 ml Head: normocephalic / atraumatic Eyes: sclera and conjunctiva wnl Neck: trachea midline Respiratory: regular respiratory rate Cardiovascular: regular rate and rhythm, palpable peripheral pulses present Abdomen: soft, non-tender, non-distended Musculoskeletal: no palpable long bone deformities, motor / sensation grossly intact Skin: scattered ecchymosis in various stages of healing Neurologic: alert and oriented x3 DEVICES: Orr: no TEDs/SCDs: yes Cervical Collar: no Thoracolumbar Fixation: no DIET: regular ACTIVITY LEVEL: as tolerated ALLERGIES: Aspirin, Benadryl [diphenhydramine hcl], Ibuprofen, Red dye, and Penicillins LABORATORIES: Labs reviewed as indicated below: Latest Reference Range & Units 11/05/23 04:28 SODIUM 135 - 146 mmol/L 135 POTASSIUM 3.5 - 5.1 mmol/L 4.3 CHLORIDE 98 - 107 mmol/L 103 CO2 22 - 32 mmol/L 19 (L) BUN 6 - 20 mg/dL 11 CREATININE 0.5 - 1.0 mg/dL 0.6 EGFR >=60 mL/min 89 ANION GAP 7 - 15 mmol/L 13 GLUCOSE 70 - 120 mg/dL 133 (H) CALCIUM 8.4 - 10.2 mg/dL 9.7 CBC Rpt ! WBC 4.00 - 10.80 K/uL 12.61 (H) RBC 3.85 - 5.15 M/uL 4.97 HGB 12.0 - 15.3 g/dL 14.1 HCT 36.0 - 45.2 % 44.8 MCV 81.5 - 97.5 fL 90.1 MCH 27.0 - 34.0 pg 28.4 MCHC 32.0 - 36.0 g/dL 31.5 RDW 11.5 - 15.5 % 15.5 PLT 140 - 400 K/uL 333 MPV 6.6 - 11.1 fL 8.6 CULTURES / SENSITIVITIES: -no new cultures RADIOGRAPHIC STUDIES: -no new studies ASSESSMENT/PLAN: Right scalp contusion SDH Parafalcine -Neurosurgery consulted -non-op management -Repeat CT scan is stable -Hold AC/AP for 14 days (not on any prior to admission) -Keppra for 7 days (done) -Close neuro checks -Follow up with Neurosurgery in 2 weeks Age indeterminate right 6-7 rib fractures (non-tender) -Non-tender on exam -CXR stable -Aggressive pulmonary toilet -OOB and mobilizers -Adequate pain control -No lifting over 10 pounds for 8 weeks -Follow up with Trauma Surgery in 2 weeks with CXR, can be tele med since from farther aware and unsure of the chronicity of these fractures Right heel and 1st toe pressure wound, present on admission -Evaluated by wound -Keep right great toe and right heel open to air. Elevate heels off of bed at all times, utilize heel boots or pillows. -Turn and reposition q2hr and PRN. -Limit sitting to 2hrs at a time, utilize EHOB waffle cushion or equivalent while sitting OOB. -Call with changes in wound appearance, non-blanchable erythema or new concerns. -Consider outpatient wound care or podiatry follow up if heel wound fails to heal. Colitis, present on admission -Had signs of colitis, abdominal pain, and elevated WBC count on admission here -Was previously admitted to [facility] for colitis where she was treated with 7d of antibiotics -Received 2 days of Zosyn on admission here -10/28-10/30 -Transitioned to oral Cipro and Flagyl -Completed 3 days -ID evaluated, appreciate recs -Recommend stopping all antibiotics as she was already completely treated for her colitis -Monitor clinically -Stopped Cipro and Flagyl 11/02 GERD -continue precinct captain pepcid and protonix DLD -continue precinct captain Lipitor HTN -continue precinct captain Norvasc -Hold home Lisinopril Seasonal allergies -continue precinct captain Zyrtec Asthma -continue precinct captain Singulair -continue precinct captain Ventolin -continue precinct captain Flonase Sleep/Mood -continue precinct captain Trazodone Urinary retention -Orr placed 11/01 for urinary retention -orr removed 11/04/23 -Straight cath protocol -Likely related to inactivity -Encourage her to get OOB and mobilize to bathroom DVT Prophylaxis -TEDs/SCDs -discontinue Heparin -start Lovenox today Bowel regimen -Colace -senna -Miralax Pain control -ATC Tylenol -lidocaine patch Dispo -patient is medically stable for discharge to SNF pending authorization Patient's decisional capacity: has capacity to make decisions Communication with Patient/Family: No meeting held. Goals of Care: decrease pain and discomfort Patient was seen and will be discussed with Dr. Juany Tyler MD 11/06/2023 7:55 AM Associated attestation - Jose Harrington MD - 11/06/2023 6:22 PM EDT I saw and evaluated the patient today. I have reviewed the resident/fellow physician note and agree. Last BM 11/02 Wbc 12 (9) Avss - increase Bowel regimen - Dispo planning * Kathy Martin, [facility] - 11/05/2023 11:20 AM EDT PHARMACY ENOXAPARIN IP CONSULT [facility] [address] Name: Cherelle Hammond Location: [facility] B525/A Date: 11/05/2023 Time: 11:19 AM GENERAL INFORMATION: Height: 160 cm (5' 3") (10/29/23 183) Weight: 61.4 kg (135 lb 5.8 oz) (10/31/23 0600) BMI: 24.22 (10/29/23 183) Principle Problem: No Principal Problem: There is no principal problem currently on the Problem List. Please update the Problem List and refresh. Criteria met to warrant anti-Xa level monitoring for enoxaparin: Age greater than or equal to 65 years and CrCl less than or equal to 45 mL/min Prior to admission The patient was not on another anticoagulant LABS: Lab Results Component Value Date/Time CREAT 0.6 11/05/2023 04:28 AM CREAT 0.6 11/04/2023 04:21 AM CREAT 0.6 11/03/2023 05:06 AM CREAT 0.9 12/26/2019 12:12 PM CREAT 0.9 10/01/2019 10:32 AM CREAT 0.8 11/12/2018 03:31 PM Lab Results Component Value Date/Time HGB 14.1 11/05/2023 04:28 AM HGB 13.1 11/04/2023 04:21 AM HGB 12.6 11/03/2023 05:06 AM HGB 14.3 12/26/2019 12:12 PM HGB 15.3 10/01/2019 10:32 AM HGB 14.0 11/12/2018 03:31 PM Lab Results Component Value Date/Time PLT 333 11/05/2023 04:28 AM PLT 313 11/04/2023 04:21 AM PLT 278 11/03/2023 05:06 AM PLT 300 12/26/2019 12:12 PM PLT 310 10/01/2019 10:32 AM PLT 279 11/12/2018 03:31 PM Lab Results Component Value Date/Time INR 1.2 10/29/2023 02:04 PM Serum creatinine: 0.6 mg/dL 11/05/23 0428 Estimated creatinine clearance: 44.1 mL/min Nomogram selection: . Anti-Xa Level (units/mL) Hold Next Dose Dosage Change Next Anti-Xa Level Less than 0.2 No Increase dose(s) by 10 mg 4 hours after 4th dose of new dosing regimen 0.2-0.5 No No Within 1 week Greater than 0.5-1.0 No Evaluate renal function for acute or chronic insufficiency necessitating change to SubQ heparin, ifenoxaparin remains appropriate decrease dose(s) by 10 mg 4 hours after 4th dose of new dosing regimen Greater than 1.0 Consider the flow diagram for dosing and monitoring guidance No results found for: "HEPLMWT" Date Dose(mg) Frequency Date & Time of Last Dose Anti-Xa Level (units/mL) New Dose Next Anti-XaLevel Due 11/04 30 mg q12h 11/06 Recommendation: The patient will be started on 30 mg Q12H and an anti-Xa level will be obtained at steady state (4 hours after the previous dose). Pharmacy will continue to follow and adjust dose as appropriate. Please contact Pharmacy at [phone] for any questions. * Juju Brito PA-C - 11/04/2023 6:04 AM EDT PROGRESS NOTE - Trauma Surgery [facility] [address] Name: Cherelle Hammond Location: [facility] B525/A Date: 11/04/2023 Time: 6:04 AM HOSPITAL DAY#: 7 ROUNDING SURGEON: Dr. Mccormack ADMISSION DATE: 10/29/2023 OPERATIONS / PROCEDURES: none INJURY COMPLEX: Active Problems: SDH (subdural hematoma) (HCC) (POA: Unknown) POA = Present On Admission -Fall -Right scalp contusion -SDH Parafalcine -Age indeterminate right 6-7 rib fractures (non-tender) -Right heel and 1st toe pressure wound, present on admission -Colitis, present on admission -Dementia -Hyperparathyroidism -GERD -IBS -B-cell lymphoma -DLD -HTN INTERIM HISTORY (LAST 24 HOURS): Patient remained stable overnight without any acute issues. She isawake and alert on exam this morning, sitting up in bed. She is a bit more tearful today because wetold her the rehab likely will not be able to take her until Monday. She has no complaints. Tolerating diet. Afebrile. WBC count up a little bit toady to 11.81 from 9.94. no complaints or signs of inf ection so will continue to monitor. PHYSICAL EXAMINATION: Most Recent Vital Signs: BP: 136 mmHg/63 mmHg (11/04/23547) Pulse: 70 (11/04/23547) Resp: 16 (11/04/23547) Temp: 36.39 C (11/04/23547) Temp Summary: Temp Min: 36.4 C (97.5 F) Max: 37.1 C (98.8 F) SpO2: 97 % (11/04/23547) O2 flow rate: Supplemental O2 Delivery: Room Air, None (11/04/23547) SpO2: 97 % (11/04/23547) Vital Signs Last 24 Hours: Systolic BP: Most Recent Systolic BP Av.5 mmHg Min: 127 mmHg Max: 142 mmHg Temperature: Most Recent Temperature Av.8 C Min: 36.39 C Max: 37.11 C Pulse: Pulse Av.7 Min: 70 Max: 87 Respirations: Resp Av Min: 16 Max: 16 SpO2: SpO2 Av % Min: 94 % Max: 98 % LBM: 11/02 HEENT: Atraumatic/normocephalic, pupils 2mm equal, round, reactive to light, mucous membranes moist Neck: supple, trachea midline, FROM without pain, Respiratory: clear to auscultation bilaterally unlabored breathing on room air, able to take a deepbreath as prompted, (-) chest wall tenderness to palpation Cardiovascular: regular rate and rhythm, palpable peripheral pulses present Abdomen: soft, non-tender, non-distended, normal bowel sounds Musculoskeletal: no palpable long bone deformities, motor / sensation grossly intact, moving all extremities as prompted, (+) peripheral pulses and sensation are equal and present throughout, (+) mild pedal edema noted, no calve pain or tenderness, strength 4/5 to BLE and 5/5 to BUE, scattered areas of ecchymosis in various stages of healing Skin: as above Neurologic: GCS Adult: eyes open 4 = spontaneous, best verbal response 5 = verbally appropriate forage, best motor response 6 = obeys commands appropriate for age DEVICES Orr: no TEDs/SCDs: yes DIET: regular ACTIVITY LEVEL: as tolerated ALLERGIES Aspirin, Benadryl [diphenhydramine hcl], Ibuprofen, Red dye, and Penicillins LABORATORIES Labs reviewed as indicated below: Latest Reference Range & Units 11/04/23 04:21 SODIUM 135 - 146 mmol/L 138 POTASSIUM 3.5 - 5.1 mmol/L 4.0 CHLORIDE 98 - 107 mmol/L 105 CO2 22 - 32 mmol/L 22 BUN 6 - 20 mg/dL 9 CREATININE 0.5 - 1.0 mg/dL 0.6 EGFR >=60 mL/min 89 ANION GAP 7 - 15 mmol/L 11 GLUCOSE 70 - 120 mg/dL 116 CALCIUM 8.4 - 10.2 mg/dL 9.6 CBC Rpt ! WBC 4.00 - 10.80 K/uL 11.81 (H) RBC 3.85 - 5.15 M/uL 4.64 HGB 12.0 - 15.3 g/dL 13.1 HCT 36.0 - 45.2 % 40.5 MCV 81.5 - 97.5 fL 87.3 MCH 27.0 - 34.0 pg 28.2 MCHC 32.0 - 36.0 g/dL 32.3 RDW 11.5 - 15.5 % 15.6 PLT 140 - 400 K/uL 313 MPV 6.6 - 11.1 fL 8.9 !: Data is abnormal (H): Data is abnormally high Rpt: View report in Results Review for more information CULTURES / SENSITIVITIES -None new RADIOGRAPHIC STUDIES -None new ASSESSMENT/PLAN Right scalp contusion SDH Parafalcine -Evaluated by neurosurgery, appreciate recs -non-op management -Repeat CT scan is stable -Hold AC/AP for 14 days (not on any prior to admission) -Keppra for 7 days -today is day 7 of 7 -Close neuro checks -Follow up with Neurosurgery in 2 weeks Age indeterminate right 6-7 rib fractures (non-tender) -Non-tender on exam -CXR stable -Aggressive pulmonary toilet -OOB and mobilizers -Adequate pain control -No lifting over 10 pounds for 8 weeks -Follow up with Trauma Surgery in 2 weeks with CXR, can be tele med since from farther aware and unsure of the chronicity of these fractures Right heel and 1st toe pressure wound, present on admission -Evaluated by wound, appreciate recs -Keep right great toe and right heel open to air. Elevate heels off of bed at all times, utilize heel boots or pillows. -Turn and reposition q2hr and PRN. -Limit sitting to 2hrs at a time, utilize EHOB waffle cushion or equivalent while sitting OOB. -Call with changes in wound appearance, non-blanchable erythema or new concerns. -Consider outpatient wound care or podiatry follow up if heel wound fails to heal. Colitis, present on admission -Had signs of colitis, abdominal pain, and elevated WBC count on admission here -Was previously admitted to [facility] for colitis where she was treated with 7d of antibiotics -Received 2 days of Zosyn on admission here -10/28-10/30 -Transitioned to oral Cipro and Flagyl -Completed 3 days -ID evaluated, appreciate recs -Recommend stopping all antibiotics as she was already completely treated for her colitis -Monitor clinically -Stopped Cipro and Flagyl 11/02 Dementia -GCS 15 overall, but does get confused at time -Re-orient as needed GERD -Restarted on home pepcid and protonix IBS -Monitor bowel function DLD -Restarted on home Lipitor HTN -Restarted on home Norvasc -Hold home Lisinopril -BP Stable off of this medication -Will hold this on discharge Seasonal allergies -Holding home Zyrtec Asthma -Restarted on home SIngulair, Ventolin Sleep/Mood -Restarted on home Trazodone Urinary retention -Orr placed 11/01 for urinary retention -Will remove orr today -Straight cath protocol -Likely related to inactivity -Encourage her to get OOB and mobilize to bathroom DVT Prophylaxis -TEDs/SCDs -Heparin per protocol -Can switch to Lovenox tomorrow Bowel regimen -Colace -senna -Miralax -LBM: 11/02 Pain control -ATC Tylenol -Oxy PRN -Oxy stopped as she is not using Diet -Cleared speech for regular diet -Tolerating diet Activity -OOB -WBAT -PT/OT recommending rehab Dispo -Medically stable for discharge when bed is available -Will place her on sleep protocol This patient was discussed with and seen by Dr. Mccormack Associated attestation - Alesha Mccormack MD - 11/04/2023 11:06 PM EDT I have reviewed the advanced practitioner's documentation on the date of service referenced in note, and I agree with, and take responsibility for the plan of care. I spent a total of 45 minutes coordinating, documenting, and providing care for this patient excluding time spent in the performance of separately billed services or time spent by another provider/QHP. Pt stable overnight. Removing orr. Starting sleep protocol. Likely dc to SNF monday * Juju Brito PA-C - 11/03/2023 5:47 AM EDT PROGRESS NOTE - Trauma Surgery [facility] [place] [address] Name: Cherelle Hammond Location: [facility] B525/A Date: 11/03/2023 Time: 5:47 AM HOSPITAL DAY#: 6 ROUNDING SURGEON: Dr. Harrington ADMISSION DATE: 10/29/2023 OPERATIONS / PROCEDURES: none INJURY COMPLEX: Active Problems: SDH (subdural hematoma) (HCC) (POA: Unknown) POA = Present On Admission -Fall -Right scalp contusion -SDH Parafalcine -Age indeterminate right 6-7 rib fractures (non-tender) -Right heel and 1st toe pressure wound, present on admission -Colitis, present on admission -Dementia -Hyperparathyroidism -GERD -IBS -B-cell lymphoma -DLD -HTN INTERIM HISTORY (LAST 24 HOURS): Patient remained stable overnight without any acute issues. She isawake and alert on exam this morning, sitting up in bed. She is pleasant and happy and states she is feeling much better since she had a BM. She reports having mild intermittent headache, but it is gone right now. No new complaints. Tolerating her diet. Afebrile. PHYSICAL EXAMINATION: Most Recent Vital Signs: BP: 127 mmHg/66 mmHg (11/03/23199) Pulse: 78 (11/03/23199) Resp: 16 (11/03/23199) Temp: 36.5 C (11/03/23199) Temp Summary: Temp Min: 36.5 C (97.7 F) Max: 37.1 C (98.8 F) SpO2: 97 % (11/03/23199) O2 flow rate: Supplemental O2 Delivery: Room Air, None (11/03/23199) SpO2: 97 % (11/03/23199) Vital Signs Last 24 Hours: Systolic BP: Most Recent Systolic BP Av.5 mmHg Min: 105 mmHg Max: 144 mmHg Temperature: Most Recent Temperature Av.9 C Min: 36.5 C Max: 37.11 C Pulse: Pulse Av.2 Min: 78 Max: 90 Respirations: Resp Av.2 Min: 16 Max: 17 SpO2: SpO2 Av.2 % Min: 96 % Max: 98 % LBM: 10/29 HEENT: Atraumatic/normocephalic, pupils 2mm equal, round, reactive to light, mucous membranes moist Neck: supple, trachea midline, FROM without pain, Respiratory: clear to auscultation bilaterally unlabored breathing on room air, able to take a deepbreath as prompted, (-) chest wall tenderness to palpation Cardiovascular: regular rate and rhythm, palpable peripheral pulses present Abdomen: soft, non-tender, non-distended, normal bowel sounds Musculoskeletal: no palpable long bone deformities, motor / sensation grossly intact, moving all extremities as prompted, (+) peripheral pulses and sensation are equal and present throughout, (+) mild pedal edema noted, no calve pain or tenderness, strength 4/5 to BLE and 5/5 to BUE, scattered areas of ecchymosis in various stages of healing Skin: as above Neurologic: GCS Adult: eyes open 4 = spontaneous, best verbal response 5 = verbally appropriate forage, best motor response 6 = obeys commands appropriate for age DEVICES Orr: no TEDs/SCDs: yes DIET: regular ACTIVITY LEVEL: as tolerated ALLERGIES Aspirin, Benadryl [diphenhydramine hcl], Ibuprofen, Red dye, and Penicillins LABORATORIES Labs reviewed as indicated below: Latest Reference Range & Units 11/03/23 05:06 SODIUM 135 - 146 mmol/L 139 POTASSIUM 3.5 - 5.1 mmol/L 4.0 CHLORIDE 98 - 107 mmol/L 106 CO2 22 - 32 mmol/L 21 (L) BUN 6 - 20 mg/dL 8 CREATININE 0.5 - 1.0 mg/dL 0.6 EGFR >=60 mL/min 89 ANION GAP 7 - 15 mmol/L 12 GLUCOSE 70 - 120 mg/dL 123 (H) CALCIUM 8.4 - 10.2 mg/dL 9.4 CBC Rpt WBC 4.00 - 10.80 K/uL 9.94 RBC 3.85 - 5.15 M/uL 4.35 HGB 12.0 - 15.3 g/dL 12.6 HCT 36.0 - 45.2 % 38.7 MCV 81.5 - 97.5 fL 89.0 MCH 27.0 - 34.0 pg 29.0 MCHC 32.0 - 36.0 g/dL 32.6 RDW 11.5 - 15.5 % 15.2 PLT 140 - 400 K/uL 278 MPV 6.6 - 11.1 fL 8.8 (L): Data is abnormally low (H): Data is abnormally high Rpt: View report in Results Review for more information CULTURES / SENSITIVITIES -None new RADIOGRAPHIC STUDIES -None new ASSESSMENT/PLAN Right scalp contusion SDH Parafalcine -Evaluated by neurosurgery, appreciate recs -non-op management -Repeat CT scan is stable -Hold AC/AP for 14 days (not on any prior to admission) -Keppra for 7 days -today is day 6 of 7 -Close neuro checks -Follow up with Neurosurgery in 2 weeks Age indeterminate right 6-7 rib fractures (non-tender) -Non-tender on exam -CXR stable -Aggressive pulmonary toilet -OOB and mobilizers -Adequate pain control -No lifting over 10 pounds for 8 weeks -Follow up with Trauma Surgery in 2 weeks with CXR, can be tele med since from farther aware and unsure of the clonicity of these fractures Right heel and 1st toe pressure wound, present on admission -Evaluated by wound, appreciate recs -Keep right great toe and right heel open to air. Elevate heels off of bed at all times, utilize heel boots or pillows. -Turn and reposition q2hr and PRN. -Limit sitting to 2hrs at a time, utilize EHOB waffle cushion or equivalent while sitting OOB. -Call with changes in wound appearance, non-blanchable erythema or new concerns. -Consider outpatient wound care or podiatry follow up if heel wound fails to heal. Colitis, present on admission -Had signs of colitis, abdominal pain, and elevated WBC count on admission here -Was previously admitted to [facility] for colitis where she was treated with 7d of antibiotics -Received 2 days of Zosyn on admission here -10/28-10/30 -Transitioned to oral Cipro and Flagyl -Today is day 3 -ID evaluated, appreciate recs -Recommend stopping all antibiotics as she was already completely treated for her colitis -Monitor clinically -Will stop Cipro and Flagyl today and monitor Dementia -GCS 15 overall, but does get confused at time -Re-orient as needed GERD -Restarted on home pepcid and protonix IBS -Monitor bowel function DLD -Restarted on home Lipitor HTN -Restarted on home Norvasc -Hold home Lisinopril -BP Stable off of this medication -Will hold this on discharge Seasonal allergies -Holding home Zyrtec Asthma -Restarted on home SIngulair, Ventolin Sleep/Mood -Restarted on home Trazodone Urinary retention -Orr placed yesterday for urinary retention -Will leave today and remove tomorrow morning -Likely related to inactivity -Encourage her to get OOB and mobilize to bathroom DVT Prophylaxis -TEDs/SCDs -Heparin per protocol Bowel regimen -Colace -senna -Miralax -LBM: 10/29 -Dulcolax and MOM added, BM shortly after suppository Pain control -ATC Tylenol -Oxy PRN Diet -Cleared speech for regular diet -Tolerating diet Activity -OOB -WBAT -PT/OT recommending rehab Dispo -Medically stable for discharge when bed is available This patient was discussed with and seen by Dr. Harrington Associated attestation - Jose Harrington MD - 11/06/2023 8:12 AM EDT I have reviewed the advanced practitioner's documentation on the date of service referenced in note, and I agree with, and take responsibility for the plan of care. I spent a total of 34 minutes coordinating, documenting, and providing care for this patient excluding time spent in the performance of separately billed services or time spent by another provider/QHP. HD 6 mechanical fall causing a SDH without deficit with stable rpt imaging and buckle rib fx on theright without respiratory compromise. Admitted on Zosyn due to a recent hx of colitis now transitioned to Cipro and Flagyl. Pain Minimal - stop ABx per ID - continue to hold lisinopril for now - void trial tomorrow - encourage ambulation * Juju Brito PA-C - 11/02/2023 6:05 AM EDT PROGRESS NOTE - Trauma Surgery [id number]-[address] [place] [id number] Name: Cherelle Hammond Location: [facility] [id number] Date: 11/02/2023 Time: 6:05 AM HOSPITAL DAY#: 5 ROUNDING SURGEON: Dr. Harrington ADMISSION DATE: 10/29/2023 OPERATIONS / PROCEDURES: none INJURY COMPLEX: Active Problems: SDH (subdural hematoma) (HCC) (POA: Unknown) POA = Present On Admission -Fall -Right scalp contusion -SDH Parafalcine -Age indeterminate right 6-7 rib fractures (non-tender) -Right heel and 1st toe pressure wound, present on admission -Colitis, present on admission -Dementia -Hyperparathyroidism -GERD -IBS -B-cell lymphoma -DLD -HTN INTERIM HISTORY (LAST 24 HOURS): Patient remained stable overnight without any acute issues. She isawake and alert on exam this morning, sitting up in bed. She states she is feeling well today. She denies having any GIRARD, vision changes, CP, abdominal pain, or nausea. She is eating and drinking well. She states she wants to go home. Explained to her she will need rehab before she goes home. She is agreeable to rehab. Called her son, Grant, and asked about her previous episode of colitis. Per zak, she was admitted to [facility] at the beginning of October for colitis. She was started on antibiotics for a 7 day course. She was discharged home after 8 days and on discharge she has 1.5 days of PO antibiotics on discharge. She did complete that and was off of antibiotics prior to be admitted here. Provided Grant with a medical update. She is Afebrile. PHYSICAL EXAMINATION: Most Recent Vital Signs: BP: 136 mmHg/60 mmHg (11/02/23199) Pulse: 73 (11/02/23199) Resp: 16 (11/02/23199) Temp: 36.78 C (11/02/23199) Temp Summary: Temp Min: 36.4 C (97.5 F) Max: 36.8 C (98.2 F) SpO2: 96 % (11/02/23199) O2 flow rate: Supplemental O2 Delivery: Room Air, None (11/02/23199) SpO2: 96 % (11/02/23199) Vital Signs Last 24 Hours: Systolic BP: Most Recent Systolic BP Av.1 mmHg Min: 115 mmHg Max: 154 mmHg Temperature: Most Recent Temperature Av.6 C Min: 36.39 C Max: 36.78 C Pulse: Pulse Av.9 Min: 69 Max: 85 Respirations: Resp Av.6 Min: 14 Max: 17 SpO2: SpO2 Av.5 % Min: 93 % Max: 96 % LBM: 10/29 HEENT: Atraumatic/normocephalic, pupils 2mm equal, round, reactive to light, mucous membranes moist Neck: supple, trachea midline, FROM without pain, Respiratory: clear to auscultation bilaterally unlabored breathing on room air, able to take a deepbreath as prompted, (-) chest wall tenderness to palpation Cardiovascular: regular rate and rhythm, palpable peripheral pulses present Abdomen: soft, non-tender, non-distended, normal bowel sounds Musculoskeletal: no palpable long bone deformities, motor / sensation grossly intact, moving all extremities as prompted, (+) peripheral pulses and sensation are equal and present throughout, (+) mild pedal edema noted, no calve pain or tenderness, strength 4/5 to BLE and 5/5 to BUE, scattered areas of ecchymosis in various stages of healing Skin: as above Neurologic: GCS Adult: eyes open 4 = spontaneous, best verbal response 5 = verbally appropriate forage, best motor response 6 = obeys commands appropriate for age DEVICES Orr: no TEDs/SCDs: yes DIET: regular ACTIVITY LEVEL: as tolerated ALLERGIES Aspirin, Benadryl [diphenhydramine hcl], Ibuprofen, Red dye, and Penicillins LABORATORIES Labs reviewed as indicated below: Latest Reference Range & Units 11/02/23 08:33 SODIUM 135 - 146 mmol/L 138 POTASSIUM 3.5 - 5.1 mmol/L 3.9 CHLORIDE 98 - 107 mmol/L 105 CO2 22 - 32 mmol/L 23 BUN 6 - 20 mg/dL 8 CREATININE 0.5 - 1.0 mg/dL 0.6 EGFR >=60 mL/min 89 ANION GAP 7 - 15 mmol/L 10 GLUCOSE 70 - 120 mg/dL 119 CALCIUM 8.4 - 10.2 mg/dL 9.4 CBC Rpt WBC 4.00 - 10.80 K/uL 8.19 RBC 3.85 - 5.15 M/uL 4.49 HGB 12.0 - 15.3 g/dL 13.4 HCT 36.0 - 45.2 % 39.8 MCV 81.5 - 97.5 fL 88.6 MCH 27.0 - 34.0 pg 29.8 MCHC 32.0 - 36.0 g/dL 33.7 RDW 11.5 - 15.5 % 14.9 PLT 140 - 400 K/uL 294 MPV 6.6 - 11.1 fL 9.0 Rpt: View report in Results Review for more information CULTURES / SENSITIVITIES -None new RADIOGRAPHIC STUDIES -None new ASSESSMENT/PLAN Right scalp contusion SDH Parafalcine -Evaluated by neurosurgery, appreciate recs -non-op management -Repeat CT scan is stable -Hold AC/AP for 14 days (not on any prior to admission) -Keppra for 7 days -today is day 5 of 7 -Close neuro checks -Follow up with Neurosurgery in 2 weeks Age indeterminate right 6-7 rib fractures (non-tender) -Non-tender on exam -CXR stable -Aggressive pulmonary toilet -OOB and mobilizers -Adequate pain control -No lifting over 10 pounds for 8 weeks -Follow up with Trauma Surgery in 2 weeks with CXR, can be tele med since from farther aware and unsure of the clonicity of these fractures Right heel and 1st toe pressure wound, present on admission -Evaluated by wound, appreciate recs -Keep right great toe and right heel open to air. Elevate heels off of bed at all times, utilize heel boots or pillows. -Turn and reposition q2hr and PRN. -Limit sitting to 2hrs at a time, utilize EHOB waffle cushion or equivalent while sitting OOB. -Call with changes in wound appearance, non-blanchable erythema or new concerns. -Consider outpatient wound care or podiatry follow up if heel wound fails to heal. Colitis, present on admission -Had signs of colitis, abdominal pain, and elevated WBC count on admission here -Was previously admitted to [facility] for colitis where she was treated with 7d of antibiotics -Received 2 days of Zosyn on admission here -10/28-10/30 -Transitioned to oral Cipro and Flagyl -Today is day 2 -ID evaluated, appreciate recs -Recommend stopping all antibiotics as she was already completely treated for her colitis -Monitor clinically Dementia -GCS 15 overall, but does get confused at time -Re-orient as needed GERD -Restarted on home pepcid and protonix IBS -Monitor bowel function DLD -Restarted on home Lipitor HTN -Restarted on home Norvasc -Hold home Lisinopril -BP Stable off of this medication -Will hold this on discharge Seasonal allergies -Holding home Zyrtec Asthma -Restarted on home SIngulair, Ventolin Sleep/Mood -Restarted on home Trazodone DVT Prophylaxis -TEDs/SCDs -Heparin per protocol Bowel regimen -Colace -senna -LBM: 10/29 -Miralax added Pain control -ATC Tylenol -Oxy PRN Diet -Cleared speech for regular diet -Tolerating diet Activity -OOB -WBAT -PT/OT recommending rehab Dispo -Medically stable for discharge when bed is available This patient was discussed with and seen by Dr. Harrington Associated attestation - Jose Harrington MD - 11/06/2023 8:12 AM EDT I have reviewed the advanced practitioner's documentation on the date of service referenced in note, and I agree with, and take responsibility for the plan of care. I spent a total of 34 minutes coordinating, documenting, and providing care for this patient excluding time spent in the performance of separately billed services or time spent by another provider/QHP. HD mechanical fall causing a SDH without deficit with stable rpt imaging and buckle rib fx on the right without respiratory compromise. Admitted on Zosyn due to a recent hx of colitis now transitioned to Cipro and Flagyl. Orthostatic hypotension yesterday Required SC with large volumes >500 SBP 103 -147 WBC 8 - hold norvasc - orr if needs further catheterization - send UA - complete 7 days of ABx per prior plan. - ID consult to clarify terminal worker ABx recommendations. * Karen Cornejo PA-C - 11/01/2023 6:16 AM EDT PROGRESS NOTE - Trauma Surgery [facility]-[address] [place] [id number] Name: Cherelle Hammond Location: [facility] B525/[id number] Date: 11/01/2023 Time: 6:16 AM HOSPITAL DAY#: 3 ROUNDING SURGEON: Dr. Harrington ADMISSION DATE: 10/29/2023 OPERATIONS / PROCEDURES: none INJURY COMPLEX: Active Problems: SDH (subdural hematoma) (HCC) (POA: Unknown) POA = Present On Admission INTERIM HISTORY (LAST 24 HOURS): Cherelle is doing well this am. She wants to go home. She has a puppy at home that is waiting for her. She denies any abdominal pain at this time. Last BM 10/29. She reports that she was in the hospital at [facility] for 8 days earlier this month and it sounds like she was on antibiotics for colitis, it is unclear if she was still on antibiotics at the time of the fall. She did have elevated WBC on admission and CT abdomen showed colitis. PHYSICAL EXAMINATION: Most Recent Vital Signs: BP: 115 mmHg/89 mmHg (11/01/23599) Pulse: 62 (11/01/23599) Resp: 16 (11/01/23599) Temp: 36.39 C (11/01/23599) Temp Summary: Temp Min: 35.9 C (96.6 F) Max: 36.6 C (97.9 F) SpO2: 96 % (11/01/23599) O2 flow rate: Supplemental O2 Delivery: Room Air, None (11/01/23599) SpO2: 96 % (11/01/23599) Vital Signs Last 24 Hours: Systolic BP: Most Recent Systolic BP Av.6 mmHg Min: 103 mmHg Max: 147 mmHg Temperature: Most Recent Temperature Av.3 C Min: 35.89 C Max: 36.61 C Pulse: Pulse Av.1 Min: 62 Max: 79 Respirations: Resp Av.5 Min: 12 Max: 25 SpO2: SpO2 Av.4 % Min: 90 % Max: 99 % Head: normocephalic / atraumatic Eyes: sclera, conjunctiva clear ENT: oropharynx clear Neck: supple, trachea midline Respiratory: clear to auscultation bilaterally Cardiovascular: regular rate and rhythm, palpable peripheral pulses present Abdomen: soft, non-tender, non-distended, normal bowel sounds Musculoskeletal: no palpable long bone deformities, motor / sensation grossly intact Skin: grossly intact Neurologic: GCS Adult: eyes open 4 = spontaneous, best verbal response 5 = verbally appropriate forage, best motor response 6 = obeys commands appropriate for age DEVICES Orr: no TEDs/SCDs: yes DIET: regular ACTIVITY LEVEL: as tolerated ALLERGIES Aspirin, Benadryl [diphenhydramine hcl], Ibuprofen, Red dye, and Penicillins LABORATORIES Labs reviewed as indicated below: Latest Reference Range & Units 11/01/23 04:08 SODIUM 135 - 146 mmol/L 139 POTASSIUM 3.5 - 5.1 mmol/L 4.1 CHLORIDE 98 - 107 mmol/L 109 (H) CO2 22 - 32 mmol/L 22 BUN 6 - 20 mg/dL 8 CREATININE 0.5 - 1.0 mg/dL 0.6 EGFR >=60 mL/min 89 ANION GAP 7 - 15 mmol/L 8 GLUCOSE 70 - 120 mg/dL 93 CALCIUM 8.4 - 10.2 mg/dL 8.8 Calcium, Ionized 1.13 - 1.32 mmol/L 1.28 Magnesium 1.5 - 2.6 mg/dL 2.2 Phosphorus 2.5 - 4.8 mg/dL 3.2 CBC Rpt ! WBC 4.00 - 10.80 K/uL 8.84 RBC 3.85 - 5.15 M/uL 4.14 HGB 12.0 - 15.3 g/dL 11.6 (L) HCT 36.0 - 45.2 % 37.7 MCV 81.5 - 97.5 fL 91.1 MCH 27.0 - 34.0 pg 28.0 MCHC 32.0 - 36.0 g/dL 30.8 RDW 11.5 - 15.5 % 15.2 PLT 140 - 400 K/uL 240 MPV 6.6 - 11.1 fL 9.3 (H): Data is abnormally high !: Data is abnormal (L): Data is abnormally low Rpt: View report in Results Review for more information CULTURES / SENSITIVITIES 10/29 Urine culture - no growth RADIOGRAPHIC STUDIES None new ASSESSMENT/PLAN -Right parafalcine subdural hematoma Keppra day #4/7 rCTH stable NSGY consulted, FU in TBI clinic in 3-4 weeks with CTH -Age indeterminate, buckle right rib fractures 6,7 Pain control oxy 2.5/5 q 4 hr prn (5 mg x 2 yesterday) Lidocaine patch ordered IS/Flutter - Colitis Recently d/c from the hospital for colitis was treated with zosyn. Transfer from [facility] after fall. CT abdomen showed colitis and wbc elevated at 20. Zosyn started on this admission-> transitioned to cipro/flagyl Will reach out to ID for recs on length of treatment -Diet: Regular diet /renal Replete electrolytes PRN Requiring straight cath. Recheck UA today -Pain Management Tylenol Lidoderm patch OxyIr 2.5/5 -DVT ppx SCD/TEDS Heparin Chronic problems - Depression: RV REPAIR TECHNICIAN Trazodone - Hyperlipidemia RV REPAIR TECHNICIAN atorvastatin -HTN RV REPAIR TECHNICIAN amlodipine Recheck orthostatic BP today Holding Lisinopril -Asthma RV REPAIR TECHNICIAN Albuterol Sulfate RV REPAIR TECHNICIAN Fluticasone RV REPAIR TECHNICIAN Montelukast -GERD Pepcid Prtonix -Allergies Holding Cetrizine Dispo: Continue med surg level of care, planning SNF placement Associated attestation - Jose Harrington MD - 11/01/2023 4:30 PM EDT I have reviewed the advanced practitioner's documentation on the date of service referenced in note, and I agree with, and take responsibility for the plan of care. I spent a total of 34 minutes coordinating, documenting, and providing care for this patient excluding time spent in the performance of separately billed services or time spent by another provider/QHP. HD mechanical fall causing a SDH without deficit with stable rpt imaging and buckle rib fx on the right without respiratory compromise. Admitted on Zosyn due to a recent hx of colitis now transitioned to Cipro and Flagyl. Orthostatic hypotension yesterday Required SC with large volumes >500 SBP 103 -147 WBC 8 - hold norvasc - orr if needs further catheterization - send UA - complete 7 days of ABx per prior plan. - ID consult to clarify group home ABx recommendations. documented in this encounter H&P Notes * Amparo Ramirez MD - 10/29/2023 1:55 PM EDT TRAUMA H&P Chief Complaint: Trauma: subdural and right rib fractures History of Present Illness: Cherelle Bird is an 83 year old female patient with a pmhx of dementia, hyperparathyroidism,IBS, GERD, B-cell lymphoma, Dyslipidemia, HTN, Sjogren colitis (recently discharged for colitis and on Zosyn) was walking in her home in the morning and she bumped into something which caused her to fall downand struck her head on the concrete floor. It was an unwitnessed fall and her son found her on the floor. Unknown LOC. She was brought to [facility] and was scanned. At which point she was found to have a subdural and two right rib fractures. At which point she was transferred to [facility] via life flight. Before getting to the trauma bay patient was given 2g of Keppra, 1L of NSS, and 4.5 grams of Zosyn. Vital en route ranges from 120-140 systolic, 70HR, and O2 saturation in the high 90s on RA. GCS of 14 (due to confusion) Primary survey intact. Secondary survey was notable for right lateral chest wall tenderness, RLQ abdominal tenderness, and minor ecchymosis in her sacral region. Temperature: 36.9. E-fast negative. Blood thinners: none Injury Complex: Tiny acute right parafalcine subdural hematoma; measuring 3mm thick Small right posterior scalp contusion Right rib fractures MECHANISM OF INJURY: Mechanical Ground Fall MODE OF TRANSPORTATION: helicopter LOSS OF CONSCIOUSNESS: unknown TETANUS VACCINE: There are no preventive care reminders to display for this patient. Administered in Trauma [place]: no PAST MEDICAL HISTORY: Past Medical History: Diagnosis Date Allergic [...] Mild mitral regurgitation 04/22/2020 Sjoegren syndrome 06/19/2013 PAST SURGICAL HISTORY: Past Surgical History: Procedure Laterality Date COLONOSCOPY 02/06/2007 COLONOSCOPY, DIAGNOSTIC (RECTUM) 09/06/2012 adenomatous polyp--repeat in 5 yrs 09/06/17 COLONOSCOPY, DIAGNOSTIC (RECTUM) 11/19/2015 adenomatous polyp, repeat 5 yrs/COLONOSCOPY FLEXIBLE PROXIMAL DIAGNOSTIC performed by Nils Carrington MD at [facility] COLONOSCOPY, DIAGNOSTIC (RECTUM) 07/08/2021 normal bx, diverticulosis / COLONOSCOPY FLEXIBLE PROXIMAL DIAGNOSTIC performed by Hannah Sanchez MD at [facility] EGD, FLEXIBLE, DIAGNOSTIC 09/28/2010 lg hiatal hernia EGD, FLEXIBLE, DIAGNOSTIC N/A 07/08/2021 normal bx, small paraesophageal hernia / ESOPHAGOGASTRODUODENOSCOPY (EGD), FLEXIBLE, TRANSORAL, DIAGNOSTIC performed by Hannah Sanchez MD at [facility] LAPAROSCOPY,RENAL CYSTS 02/07/2008 PARAESOPHAGEAL HERNIA REPAIR, LAP W/ MESH 11/15/2010 LAPAROSCOPIC PARAESOPHAGEAL HERNIA REPAIR W/MESH performed by GINA MACHUCA at [facility] PATIENT EDU, LUMPECTOMY FOR MALIGN* unknown - benign RADIUS/ULNAR FX ORTHO PREFAB 02/06/2010 pinning s/p traumatic fx UPPER GI ENDOSCOPY/EXAM 11/15/2010 UPPER GI ENDOSCOPY SIMPLE performed by GINA MACHUCA at OR [facility] CURRENT HOSPITAL MEDICATIONS: Note that discontinued and completed medications (per the MAR) continue to display for 24 hours. Ordered medications to be given in the future also display. Current Facility-Administered Medications Medication Dose Route Frequency Provider Acetaminophen (Tylenol) tab 975 mg 975 mg Oral Q8H Christopher Vogel PA-C albuterol (VENTOLIN HFA/PROVENTIL HFA) inhaler 1 Puff Inhalation Q4H PRN Christopher Vogel PA-C [START ON 10/30/2023] amLODIPine (Norvasc) tab 5 mg 5 mg Oral Daily(AM) Christopher Vogel PA-C [START ON 10/30/2023] atorvaSTATin (Lipitor) tab 10 mg 10 mg Oral Daily(AM) Christopher Vogel PA-C Carisoprodol (Soma) tab 175 mg 175 mg Oral Q6H PRN Christopher Vogel PA-C [START ON 10/30/2023] chlorhexidine gluconate cloth 2 % pad External Daily 1000 Christopher Vogel PA-C Famotidine (Pepcid) tab 20 mg 20 mg Oral HS Christopher Vogel PA-C fluticasone Furoate (ARNUITY ellipta) 200 MCG/ACT inhaler 1 Puff 1 Puff Inhalation Resp QPM Christopher Vogel PA-C levETIRAcetam (Keppra) 500 mg in 100 mL ivpb *LOCKED DOSE* 500 mg IV Piggyback BID(AM/PM) Christopher Vogel PA-C montelukast (Singulair) tab 10 mg 10 mg Oral QHS Christopher Vogel PA-C NSS infusion Intravenous Continuous Christopher Vogel PA-C ondansetron ODT (Zofran) tab 4 mg 4 mg On Tongue Q6H PRN Christopher Vogel PA-C Or ondansetron (Zofran) inj 4 mg 4 mg IV Push Q6H PRN Christopher Vogel PA-C [START ON 10/30/2023] pantoprazole (Protonix) tab 40 mg 40 mg Oral Daily(AM) Christopher Vogel PA-C Piperacillin-Tazobactam (Zosyn) 4.5 g in 100 mL NSS ivpb (FOUR hour infusion) 4.5 g IV Piggyback Q8H Now Christopher Vogel PA-C traMADol (Ultram) tab 50 mg 50 mg Oral Q6H PRN Christopher Vogel PA-C traZODone (Desyrel) tab 50 mg 50 mg Oral HS Christopher Vogel PA-C Current Outpatient Medications Medication Lisinopril 20 MG Oral Tablet (Prinivil) Montelukast Sodium 10 MG Oral Tablet (Singulair) Pantoprazole Sodium 40 MG Oral Tablet Delayed Release (Protonix) Fluticasone Propionate HFA 110 MCG/ACT Inhalation Aerosol Meclizine HCl 25 MG Oral Tablet (Antivert) amLODIPine Besylate 5 MG Oral Tablet (Norvasc) traMADol HCl 50 MG Oral Tablet (Ultram) Cetirizine HCl 10 MG Oral Tablet (ZyrTEC) Estradiol 0.1 MG/GM Vaginal Cream (Estrace) Famotidine 20 MG Oral Tablet (Pepcid) Lactobacillus Probiotic Oral Tablet traZODone HCl 50 MG Oral Tablet (Desyrel) Atorvastatin Calcium 10 MG Oral Tablet (Lipitor) Albuterol Sulfate HFA 108 (90 Base) MCG/ACT Inhalation Aerosol Solution polyethylene glycol 3350 (MIRALAX) 255 gram powder ALLERGIES: Aspirin, Benadryl [diphenhydramine hcl], Ibuprofen, Red dye, and Penicillins SOCIAL HISTORY: Social History Tobacco Use Smoking status: Former Current packs/day: 0.00 Average packs/day: 1 pack/day for 5.0 years (5.0 ttl pk-yrs) Types: Cigarettes Start date: 02/06/1966 Quit date: 02/06/1971 Years since quittin.7 Smokeless tobacco: Never Vaping Use Vaping status: Never Used Substance Use Topics Alcohol use: No Drug use: No FAMILY HISTORY: Family History Problem Relation Name Age of Onset Cancer Mother breast Hypertension Mother Hyperlipidemia Son Noncontributory REVIEW OF SYSTEMS: Constitutional: (-) fever chills sweats or weight loss Eyes: (-) negative, no amaurosis fugax, pain, blurred vision, or redness ENT: (-) negative: no headaches, vertigo, hearing loss, sinus, ear, or throat problems Cardiovascular: (-) negative: no chest pain, dyspnea, syncope, or palpitations Pulmonary: (-) negative: no cough, wheezing, or shortness of breath Abdominal/GI: (+) heartburn (+) acid reflux Musculoskeletal: (+) pain in her right lower abdomen and right chest wall Skin: (-) negative: no rash or new or changing moles Psychiatry: (+) baseline dementia COLLARED: no BACKBOARD: no INTUBATED: no PHYSICAL EXAM: Most Recent Vital Signs: BP: 126 mmHg/58 mmHg (10/29/231414) Pulse: 76 (10/29/23 141) Resp: 19 (10/29/231414) Temp: Temp Summary: No data recorded SpO2: 96 % (10/29/231414) O2 flow rate: Supplemental O2 Delivery: Room Air, None (10/29/231414) Rhythm: Normal Sinus Head: normocephalic / atraumatic Eyes: pupils 2 mm, bilaterally reactive to light, extraocular muscles intact ENT: tympanic membranes bilaterally clear, oropharynx clear Neck: supple, non-tender, trachea midline Respiratory: clear to auscultation bilaterally Cardiovascular: regular rate and rhythm, palpable peripheral pulses present Abdomen: soft, non-tender, non-distended, normal bowel sounds Back: no tenderness across thoracic / lumbar spine Pelvis: non-tender, stable to anterior-posterior/lateral compression Rectal: normal sphincter tone, no gross blood Genitourinary: normal female genitalia, No blood noted Musculoskeletal: no palpable long bone deformities, motor / sensation grossly intact Skin: grossly intact Neurologic: alert and oriented x3 LABS: Labs reviewed as indicated below: Abnormal Labs Reviewed CBC - Abnormal; Notable for the following components: Result Value WBC 20.40 (*) All other components within normal limits DIFFERENTIAL, AUTOMATED - Abnormal; Notable for the following components: WBC 20.40 (*) Neutrophils % 81.3 (*) Lymphocytes % 10.3 (*) Absolute Neutrophils 16.58 (*) Absolute Monocytes 1.30 (*) Absolute Immature Granulocytes 0.26 (*) All other components within normal limits IMAGING: XR CHEST 1 VIEW Result Date: 10/29/2023 IMPRESSION Hypoventilatory changes. No sizable pneumothorax. Chest X-Ray: no acute injuries FAST Ultrasound: negative CT Scan Head: acute findings CT Scan Chest: acute findings; incidentals: bilateral thyroid nodules CT Scan Abdomen/Pelvis: acute findings CONSULTS: Chastity Leone, Time called/notified: 13:59 PROCEDURES COMPLETED: None ASSESSMENT: Active Problems: * No active hospital problems. * POA = Present On Admission PLAN: -Admit to Trauma surgery service -Tiny acute right parafalcine subdural hematoma; measuring 3mm thick Keppra: started 10/28 and last dose 11/03 Received on dose of Keppra at outside hospital Follow up [facility] NSGY consulted: appreciate reccs -Age indeterminate Right rib fractures Pain control IS Flutter - Colitis Recently d/c from the hospital for colitis Zosyn 4.5 g in 100ml NSS -Diet: NPO -FEN: NSS @50ml Replete electrolytes PRN -Pain Management Tylenol Soma Tramadol -PT/OT When appropriate -Speech Consult When appropriate -DVT ppx SCD/TEDS Holding Lovenox Chronic problems - Depression: RV REPAIR TECHNICIAN Trazodone - Hyperlipidemia RV REPAIR TECHNICIAN atorvastatin -HTN RV REPAIR TECHNICIAN amlodipine Holding Lisinopril -Asthma RV REPAIR TECHNICIAN Albuterol Sulfate RV REPAIR TECHNICIAN Fluticasone RV REPAIR TECHNICIAN Montelukast -GERD Pepcid Prtonix -Allergies Holding Cetrizine Dispo: Medsur Patient was seen and discussed with Dr. Easton Palomares MD; PGY-1 [facility] 10/29/2023 Associated attestation - Alesha Mccormack MD - 10/29/2023 2:51 PM EDT I saw and evaluated the patient today. I have reviewed the resident/fellow physician note and agree. Pt seen with the trauma team for level 2 trauma alert. 83yo f bumped into furniture and fell at home hitting her head on concrete. She was recently hospitalized for ischemic colitis. She was evaluated at [facility] and found to have a SDH and rib fx's so she was sent here for trauma mgmt. She was given zosyn, keppra and 1L NS prior to transfer Primary survey: A: Intact B: equal bilaterally. RR23. Sats 92%on RA C: HR82, BP108/71 Pulses palpable on distal extremities x4. No external bleeding noted D: GCS 14 (confused). Motor/sensory intact. Pupils 2 and reactive E: fully exposed. Warm room, warm blankets. Temp 36.9 Secondary survey: PE: B/L LQ tenderness, non peritoneal. L chest tenderness CXR: negative EFAST: negative CTs obtained: Head, c-spine, chest(obtained here), abdomen, pelvis CT findings: R 6-7 rib fx's, R falx SDH, sigmoid colitis Labs: WBC 20k Impression/Plan: Admit to TICU SDH: NSGY consult. Keppra. Repeat CTH at 1750. Q1h neuro checks R 6, 7 rib fx's: pain control, pulmonary toilet Ischemic colitis: continue zosyn. NPO for now CCM time 45 minutes documented in this encounter Consult Notes * Katalina Hussein, [facility] - 11/07/2023 2:08 PM EDTAssociated Order(s): ANTI- COAGULATION CONSULT IP PHARMACY ENOXAPARIN IP CONSULT [address] [address] Name: Cherelle Hammond Location: [facility] B525/A Date: 11/07/2023 Time: 12:31 PM GENERAL INFORMATION: Height: 160 cm (5' 3") (10/29/231829) Weight: 61.4 kg (135 lb 5.8 oz) (10/31/23 0600) BMI: 24.22 (10/29/231829) Principle Problem: No Principal Problem: There is no principal problem currently on the Problem List. Please update the Problem List and refresh. Criteria met to warrant anti-Xa level monitoring for enoxaparin: Age greater than or equal to 65 years and CrCl less than or equal to 45 mL/min Prior to admission The patient was not on another anticoagulant LABS: Lab Results Component Value Date/Time CREAT 0.7 11/07/2023 08:51 AM CREAT 0.7 11/06/2023 08:35 AM CREAT 0.6 11/05/2023 04:28 AM CREAT 0.9 12/26/2019 12:12 PM CREAT 0.9 10/01/2019 10:32 AM CREAT 0.8 11/12/2018 03:31 PM Lab Results Component Value Date/Time HGB 15.0 11/07/2023 08:51 AM HGB 15.3 11/06/2023 08:35 AM HGB 14.1 11/05/2023 04:28 AM HGB 14.3 12/26/2019 12:12 PM HGB 15.3 10/01/2019 10:32 AM HGB 14.0 11/12/2018 03:31 PM Lab Results Component Value Date/Time PLT 344 11/07/2023 08:51 AM PLT 342 11/06/2023 08:35 AM PLT 333 11/05/2023 04:28 AM PLT 300 12/26/2019 12:12 PM PLT 310 10/01/2019 10:32 AM PLT 279 11/12/2018 03:31 PM Lab Results Component Value Date/Time INR 1.2 10/29/2023 02:04 PM Serum creatinine: 0.7 mg/dL 11/07/23 0851 Estimated creatinine clearance: 44.1 mL/min Nomogram selection: . Anti-Xa Level (units/mL) Hold Next Dose Dosage Change Next Anti-Xa Level Less than 0.2 No Increase dose(s) by 10 mg 4 hours after 4th dose of new dosing regimen 0.2-0.5 No No Within 1 week Greater than 0.5-1.0 No Evaluate renal function for acute or chronic insufficiency necessitating change to SubQ heparin, ifenoxaparin remains appropriate decrease dose(s) by 10 mg 4 hours after 4th dose of new dosing regimen Greater than 1.0 Consider the flow diagram for dosing and monitoring guidance Lab Results Component Value Date/Time HEPLMWT 0.68 (H) 11/07/2023 09:42 AM Date Dose(mg) Frequency Date & Time of Last Dose Anti-Xa Level (units/mL) New Dose Next Anti-XaLevel Due 11/04 30 mg q12h 11/06 11/06 30 mg q12h 11/06 0608 0.68 20 mg q12h 11/08 1000 Recommendation: The current anti-Xa level was drawn early and is above goal range. Decrease current enoxaparin regimen to 20 mg Q12H and obtain new anti-Xa level 4 hours after next dose on 11/08 at 1000. Pharmacy will continue to follow and adjust dose as appropriate. Please contact Pharmacy at [phone] for any questions. * Radha Guerra MD - 11/02/2023 6:09 PM EDTAssociated Order(s): INFECTIOUS DISEASE CONSULT IP CONSULT - Infectious Disease [facility] [address] Name: Cherelle Hammond Location: [facility] B525/A Date: 11/02/2023 Time: 6:09 PM CLINICAL TEAM: Infectious Diseases Team 1 REQUESTING SERVICE: Trauma Surgery REASON FOR CONSULT: hx of recent admission [facility] tx for colitis. Admitted 10/[address] abdomen with colitis WBC 20. Zosyn initiated->cipro/flagyl. Please assist with recs re: length of treatment HPI: Patient is a 83 year old female admitted to the hospital on 10/29/2023. She has a past medical history of dementia, hyperparathyroidism,IBS, GERD, B-cell lymphoma, Dyslipidemia, HTN, Sjogren colitis (recently discharged for colitis and on Zosyn) was walking in her home and she bumped into something which caused her to fall down and struck her head on the concrete floor. It was an unwitnessed fall and her son found her on the floor. Unknown LOC. She was brought to [facility] and was scanned. At which point she was found to have a subdural and two right rib fractures. At which point she was transferred to [facility] via life flight. Patient was seen on bedside today she was doing okay, she denie d any fever, chills, nausea, vomiting, diarrhea. As per her son she was given oral ciprofloxacin and Flagyl at the time of discharge from the previous hospitalization that patient was supposed to take for 7 days which was already completed before this admission. ALLERGIES: Aspirin, Benadryl [diphenhydramine hcl], Ibuprofen, Red dye, and Penicillins PAST MEDICAL HISTORY: Past Medical History: Diagnosis Date Allergic [...] Mild mitral regurgitation 04/22/2020 Sjoegren syndrome 06/19/2013 PAST SURGICAL HISTORY: Past Surgical History: Procedure Laterality Date COLONOSCOPY 02/06/2007 COLONOSCOPY, DIAGNOSTIC (RECTUM) 09/06/2012 adenomatous polyp--repeat in 5 yrs 09/06/17 COLONOSCOPY, DIAGNOSTIC (RECTUM) 11/19/2015 adenomatous polyp, repeat 5 yrs/COLONOSCOPY FLEXIBLE PROXIMAL DIAGNOSTIC performed by Nils Carrington MD at [facility] COLONOSCOPY, DIAGNOSTIC (RECTUM) 07/08/2021 normal bx, diverticulosis / COLONOSCOPY FLEXIBLE PROXIMAL DIAGNOSTIC performed by Hannah Sanchez MD at [facility] EGD, FLEXIBLE, DIAGNOSTIC 09/28/2010 lg hiatal hernia EGD, FLEXIBLE, DIAGNOSTIC N/A 07/08/2021 normal bx, small paraesophageal hernia / ESOPHAGOGASTRODUODENOSCOPY (EGD), FLEXIBLE, TRANSORAL, DIAGNOSTIC performed by Hannah Sanchez MD at [facility] LAPAROSCOPY,RENAL CYSTS 02/07/2008 PARAESOPHAGEAL HERNIA REPAIR, LAP W/ MESH 11/15/2010 LAPAROSCOPIC PARAESOPHAGEAL HERNIA REPAIR W/MESH performed by GINA MACHUCA at [facility] PATIENT EDU, LUMPECTOMY FOR MALIGN* unknown - benign RADIUS/ULNAR FX ORTHO PREFAB 02/06/2010 pinning s/p traumatic fx UPPER GI ENDOSCOPY/EXAM 11/15/2010 UPPER GI ENDOSCOPY SIMPLE performed by GINA MACHUCA at [facility] SOCIAL HISTORY: Social History Tobacco Use Smoking status: Former Current packs/day: 0.00 Average packs/day: 1 pack/day for 5.0 years (5.0 ttl pk-yrs) Types: Cigarettes Start date: 02/06/1966 Quit date: 02/06/1971 Years since quittin.7 Smokeless tobacco: Never Vaping Use Vaping status: Never Used Substance Use Topics Alcohol use: No Drug use: No FAMILY HISTORY and FAMILY STATUS: Family History Problem Relation Name Age of Onset Cancer Mother breast Hypertension Mother Hyperlipidemia Son Family Status Relation Status Mo Sis Fa Bro Sis Sis Sis Alive Son Alive ROS: Constitutional: No weight loss/gain, fatigue, fever, loss of appetite Eyes: No vision change HENT: No ear pain/drainage, sinus infections, hearing loss Cardiovascular: No chest pain, palpitations Respiratory: No shortness of breath, wheezing, cough, sputum production Gastrointestinal: No abdominal pain, nausea/vomiting, indigestion/heartburn Skin: No rash, lesions Neurological: No dizziness, weakness, confusion, sensory changes PHYSICAL EXAMINATION: Most Recent Vital Signs: BP: 144 mmHg/43 mmHg (11/02/23 1353) Pulse: 84 (11/02/23 1353) Resp: 16 (11/02/23 135) Temp: 37 C (11/02/231352) Temp Summary: Temp Min: 36.6 C (97.9 F) Max: 37 C (98.6 F) SpO2: 96 % (11/02/23 135) O2 flow rate: Supplemental O2 Delivery: Room Air, None (11/02/231352) Vital Signs Last 24 Hours: Systolic BP: Most Recent Systolic BP Av.2 mmHg Min: 106 mmHg Max: 154 mmHg Temperature: Most Recent Temperature Av.9 C Min: 36.61 C Max: 37 C Pulse: Pulse Av.2 Min: 73 Max: 90 Respirations: Resp Av.2 Min: 16 Max: 17 SpO2: SpO2 Av.2 % Min: 93 % Max: 98 % Head: normocephalic / atraumatic Eyes: sclera, conjunctiva clear ENT: oropharynx clear Neck: supple, trachea midline Respiratory: clear to auscultation bilaterally Cardiovascular: regular rate and rhythm, palpable peripheral pulses present Abdomen: soft, non-tender, non-distended, normal bowel sounds Skin: Grossly intact Neurologic: Oriented to time place and person. LABS: Labs reviewed as indicated below: Lab results within last 7 days (see chart for full results) Units 11/02/23 0833 11/01/23 0408 10/31/23 0800 10/30/23 0618 10/29/23 1404 10/29/23 1403 WBC K/uL 8.19 8.84 10.92* 11.21* -- 20.40* CREATININE mg/dL 0.6 0.6 0.7 0.6 0.6 -- BUN mg/dL 8 8 9 11 11 -- EGFR mL/min 89 89 86 88 90 -- MICROBIOLOGY DATA: No results found for the last 90 days. Recent Cultures (2 Weeks) 10/30/2023 5:22 AM QUANT URINE CULTURE GROWTH < 100 colonies/ml (no growth) IMAGING: EXAM: CT HEAD/BRAIN WO CONTRAST; CTA NECK - 10/29/2023 MPRESSION: 1. Small right posterior scalp hematoma. Unchanged small right parafalcine subdural hemorrhage without local mass effect or interval new hemorrhage. 2. No evidence of acute blunt cerebrovascular injury. 3. Multifocal atherosclerotic plaque most significant of the right cervical carotid bifurcations resulting in approximately 50% stenosis of the proximal right ICA. 4. Degenerative changes of the cervical spine, most significant at C5-C6 with [id number] spinal canal stenosis. 5. Dilation of the lateral and, to a lesser extent, the 3rd ventricles disproportionate to the degree of cerebral volume loss, similar to prior examination. Although nonspecific, findings can be seenwith normal pressure hydrocephalus in appropriate clinical setting. IMPRESSION: 83-year-old female came to the hospital after a fall. She recent discharge from the hospital for colitis and was treated with Zosyn. Currently being evaluated for duration of antibiotic. 1. Right Subdural hematoma after a fall 2. Rib fractures 3. Colitis RECOMMENDATIONS: -As per patient's son, she was supposed to take 7 days of oral antibiotic after discharge from previous hospitalization, which was already completed by the patient so no need for further antibiotics for now. ID will sign off, thank you for allowing us to participate in the care of this patient. Radha Guerra MD Infectious Disease PGY-4 [facility] Associated attestation - Ashley Conn MD - 11/02/2023 9:39 PM EDT I saw and evaluated the patient today. I have reviewed the resident/fellow physician note and agree. I spent a total of 65 minutes coordinating, documenting, and providing care for this patient excluding time spent in the performance of separately billed services or time spent by another provider/QHP. * Meli Duong RN - 10/31/2023 10:00 AM EDTAssociated Order(s): WOUND/OSTOMY CONSULT IP Wound / Ostomy Nurse Consult Note Wound ostomy nurse consulted to see patient for alterations of skin to right heel and right great toe, noted on admission. Recommendations: Keep right great toe and right heel open to air. Elevate heels off of bed at all times, utilize heel boots or pillows. Turn and reposition q2hr and PRN. Limit sitting to 2hrs at a time, utilize EHOB waffle cushion or equivalent while sitting OOB. Call with changes in wound appearance, non-blanchable erythema or new concerns. Consider outpatient wound care or podiatry follow up if heel wound fails to heal. Wound Ostomy asked to see this 83 year old patient admitted 10/29/2023 after a fall from standing. PMH significant for dementia, hyperparathyroidism,IBS, GERD, B-cell lymphoma, Dyslipidemia, HTN, Sjogren colitis (recently discharged for colitis and on Zosyn). Wound history/prehospital care: Transfer from [facility] for trauma management. Patient reports right great toe previous stepped on by a horse, nail removed by curtain worker. Current Skin Wound Care: low air loss/alternating air mattress and moisture wicking pads Wound Assessment: Patient resting in bed. Right great toe with blanchable erythema, nail previously removed. No open wound at this time. No wound care required. Right posterior heel with area of intact bulla, dark serous ~1.5cm x 1cm. No drainage or surrounding erythema. Patient reports some pain with palpation. Suggestive of deep tissue injury, noted on admission. Educated patient on importance of frequent repositioning and offloading of bony prominences, including elbows, heels, sacrum/buttocks, hips, in order to prevent pressure related skin injury. Educatedon use of pillows to elevate heels off of bed to prevent injury to heels. Patient verbalized understanding. Discussed need to follow up with wound clinic or podiatry if heel wound fails to heel. * Fabiana Membreno, PT - 10/31/2023 9:45 AM EDT GENERAL EVALUATION - Physical Therapy [facility] [address] Name: Cherelle Hammond Location: [facility] G510/A Date: 10/31/2023 Time: 944 Cherelle Hammond is a/an 83 year old female. Patient Status: Inpatient Insurance: Payor: [facility] MEDIC[facility]VANTAGE Plan: [facility] GR[facility] MDC ADV PPO Product Type: *No Product type* Patient Seen: at bedside, nursing cleared patient for therapy Patient Identified By: Name, ID Band and Date Diagnosis: s/p fall with SDH (10/31/23944) Status of treatment: OOB evaluation completed (10/31/23944) Orders: PT evaluation and treatment;OOB (10/31/23944) Weight Bearing Status: Weight bearing as tolerated (10/31/23944) Precautions: Alarms;Falls;Safety (10/31/23944) Total Treatment Time--free text: 14 (10/31/23944) Past Medical History: Past Medical History: Diagnosis Date Allergic rhinitis [...] 04/22/2020 Sjoegren syndrome 06/19/2013 Past Surgical History: Past Surgical History: Procedure Laterality Date COLONOSCOPY 02/06/2007 COLONOSCOPY, DIAGNOSTIC (RECTUM) 09/06/2012 adenomatous polyp--repeat in 5 yrs 09/06/17 COLONOSCOPY, DIAGNOSTIC (RECTUM) 11/19/2015 adenomatous polyp, repeat 5 yrs/COLONOSCOPY FLEXIBLE PROXIMAL DIAGNOSTIC performed by Nisl Carrington MD at [facility] COLONOSCOPY, DIAGNOSTIC (RECTUM) 07/08/2021 normal bx, diverticulosis / COLONOSCOPY FLEXIBLE PROXIMAL DIAGNOSTIC performed by Hannah Sanchez MD at [facility] EGD, FLEXIBLE, DIAGNOSTIC 09/28/2010 lg hiatal hernia EGD, FLEXIBLE, DIAGNOSTIC N/A 07/08/2021 normal bx, small paraesophageal hernia / ESOPHAGOGASTRODUODENOSCOPY (EGD), FLEXIBLE, TRANSORAL, DIAGNOSTIC performed by Hannah Sanchez MD at [facility] LAPAROSCOPY,RENAL CYSTS 02/07/2008 PARAESOPHAGEAL HERNIA REPAIR, LAP W/ MESH 11/15/2010 LAPAROSCOPIC PARAESOPHAGEAL HERNIA REPAIR W/MESH performed by GINA MACHUCA at [facility] PATIENT EDU, LUMPECTOMY FOR MALIGN* unknown - benign RADIUS/ULNAR FX ORTHO PREFAB 02/06/2010 pinning s/p traumatic fx UPPER GI ENDOSCOPY/EXAM 11/15/2010 UPPER GI ENDOSCOPY SIMPLE performed by GINA MACHUCA at OR [facility] Subjective: Patient resting in chair, would like to get out of bed Observations Consciousness: Alert;Confused (10/31/23944) Orientation: Oriented times 4 (10/31/23944) Psychosocial: Patient can communicate basic needs;Patient can converse in a social setting (10/31/23944) Sitting Posture: Forward head;Rounded shoulders (10/31/23944) Standing Posture: Forward head;Rounded shoulders;Posterior lean (10/31/23944) Pain: No complaints of pain P.T. Bed Mobility Sit-Supine: Minimal Assistance (x2) (10/31/23944) Transfers Sit-Stand: Minimal Assistance (x2) (10/31/23944) Stand-Sit: Minimal Assistance (x2) (10/31/23944) Ambulation Assist: Moderate Assistance (x2) (10/31/23944) Distance Ambulated (feet): 2 (10/31/23944) Assistive Device: Rolling walker (10/31/23944) Noted gait deviations: unsteady, posterior lean (10/31/23944) Balance Sit (Static): Fair (-) (10/31/23944) Sit (Dynamic): Poor (+) (10/31/23944) Stand (Static): Poor (10/31/23944) Stand (Dynamic): Poor (-) (10/31/23944) Patient and or Family Goal(s): to get well Patient Education Review of Precautions: Safety;Fall (10/31/23944) Safety Awareness: Patient verbalizes insight of current deficits;Needs cueing supervision () Preferred learning method: Combination (10/31/23944) Barriers to learning: Medical Status (10/31/23944) Method of Education: Verbalized to patient (10/31/23944) Topic of Education: Safety with mobility, Goals/plan of care, and Fall prevention Method of Education: Verbal discussion and explanation provided to patient: verbalized understanding and or agreement of this information Treatment Provided: Therapeutic Activities 14 minutes: bed mobility training transfer training Alarm Status Patient positioned in: Bed (10/31/23944) With: Bed alarm intact and functioning and call boggs in reach (10/31/23944) Treatment Status: Treatment at bedside (10/31/23944) Goals: Demonstrate Bed Mobility with: Sit to supine: modified independent Supine to sit:modified independent Demonstrate transfers with: Sit to stand: modified independent Stand to sit: modified independent Bed to chair: modified independent with least restrictive device Chair to bed: modified independent with least restrictive device Demonstrate ambulation: distance: 250 feet with assistive device: least restrictive device and level of assistance: modified independent Increase Strength: to 5/5 BLE Increase Balance: fair+ sitting / fair+ standing Increase safety: with all functional mobility Time Frame: 10 visits Assessment: Patient is 83 y/o female with dx s/p fall with SDH. Patient seen for OOB evaluation this date. Patient seated in chair upon therapist arrival, requesting to go back to bed. Patient currently requires minimal assistance x2 for sit<>stand. Moderate assistance x2 for ambulation 2' tobed with rolling walker. Standing and ambulation unsteady and patient has posterior lean despite verbal cues. Minimal assist x1 to return to supine. Mobility this date limited by weakness, fatigue. Ended session with patient resting comfortably in bed. Patient's overall mobility is limited by decreased LE strength, decreased balance, and overall medical status. Patient would benefit from continued PT to maximize functional independence. Please consider post-acute care services which may includeord health, custodial, outpatient therapy or inpatient rehabilitation. The level of care will be determined in collaboration with patient, family/caregiver and care team members. Treatment Plan: Bed mobility training, Transfer training, Gait training, Strengthening exercises: BLE, Balance activities, and Educate on safety with functional mobility Anticipated Frequency (on eval): 3 to 5 times per week (09/24/24 0945) Deficits requiring P.T. treatment needs: Safety;Mobility;Balance;Weakness;Endurance;Lower extremitystrength (10/31/23944) Equipment needs: (tbd) (10/31/23944) AM-PAC Score With Stairs : 13 (10/31/23944) A portion of this AM-PAC assessment not scored based on functional assessment rather clinical decision making utilized based on current findings and/or prior level of function. Please refer to futureAM-PAC calculations of functional ability as they become available. Fabiana Membreno, PT, DPT Physical Therapy [facility] * Brittani Her OTR/Anitha - 10/31/2023 9:45 AM EDT GENERAL OOB EVALUATION - Occupational Therapy [address] [address] Name: Cherelle Hammond Location: [facility] G510/A Date: 10/31/2023 Time: 9:45 AM Cherelle Hammond is a 83 year old female. Patient Status: Inpatient Insurance: Payor: [facility]VANT[facility] Plan: [facility] MDC ADV PPO Product Type: *No Product type* Patient Seen: at bedside, nursing cleared patient for therapy Patient Identified By: Name, ID Band and Date Diagnosis: s/p fall with SDH and rib fractures (10/31/23944) Status of treatment: OOB evaluation completed (10/31/23944) Orders: OT evaluation and treatment;OT OOB (10/31/23944) Weight Bearing Status: Weight bearing as tolerated (10/31/23944) Precautions: Alarms;Falls;Safety;Skin (10/31/23944) Total Treatment Time: 14 (10/31/23944) Past Medical History: Past Medical History: Diagnosis Date Allergic rhinitis [...] 04/22/2020 Sjoegren syndrome 06/19/2013 Past Surgical History: Past Surgical History: Procedure Laterality Date COLONOSCOPY 02/06/2007 COLONOSCOPY, DIAGNOSTIC (RECTUM) 09/06/2012 adenomatous polyp--repeat in 5 yrs 09/06/17 COLONOSCOPY, DIAGNOSTIC (RECTUM) 11/19/2015 adenomatous polyp, repeat 5 yrs/COLONOSCOPY FLEXIBLE PROXIMAL DIAGNOSTIC performed by Nils Carrington MD at [facility] COLONOSCOPY, DIAGNOSTIC (RECTUM) 07/08/2021 normal bx, diverticulosis / COLONOSCOPY FLEXIBLE PROXIMAL DIAGNOSTIC performed by Hannah Sanchez MD at [facility] EGD, FLEXIBLE, DIAGNOSTIC 09/28/2010 lg hiatal hernia EGD, FLEXIBLE, DIAGNOSTIC N/A 07/08/2021 normal bx, small paraesophageal hernia / ESOPHAGOGASTRODUODENOSCOPY (EGD), FLEXIBLE, TRANSORAL, DIAGNOSTIC performed by Hannah Sanchez MD at [facility] LAPAROSCOPY,RENAL CYSTS 02/07/2008 PARAESOPHAGEAL HERNIA REPAIR, LAP W/ MESH 11/15/2010 LAPAROSCOPIC PARAESOPHAGEAL HERNIA REPAIR W/MESH performed by GINA MACHUCA at OR [facility] PATIENT EDU, LUMPECTOMY FOR MALIGN* unknown - benign RADIUS/ULNAR FX ORTHO PREFAB 02/06/2010 pinning s/p traumatic fx UPPER GI ENDOSCOPY/EXAM 11/15/2010 UPPER GI ENDOSCOPY SIMPLE performed by GINA MACHUCA at OR [facility] Social History/Disposition Lives with: Alone (10/31/23944) Assistance available: Yes (son lives next door. also has caregivers in the hour 4 days a week for 4hours a day) (10/31/23944) Dwelling type: Single story home (10/31/23944) Entry steps: None (10/31/23944) Inside steps: None (10/31/23944) Bedroom location: 1st floor (10/31/23944) Bath location: 1st floor full bath (10/31/23944) Prior Level of Function Reported by: Patient (10/31/23944) Ambulation: Ambulatory with device (10/31/23944) Ambulatory Device: Cane (10/31/23944) Grooming: Independent (10/31/23944) Bathing: Independent (10/31/23944) Dressing: Independent (10/31/23944) Feeding: Independent (10/31/23944) Toileting: Independent (10/31/23944) Meal Prep: Assistance (10/31/23944) Homemaking: Assistance (10/31/23944) Shopping: Assistance (10/31/23944) Medication Management: Assistance (10/31/23944) Durable Medical Equipment at home: Straight cane;Rolling walker;Tub bench (10/31/23944) Subjective: Pt was noted to be seated OOB in chair upon arrival and agreeable to therapy services. RN present during session to perform orthostatics. Pain: No complaints of pain Observations Consciousness: Alert (10/31/23944) Orientation: Oriented times 4 (but confused) (10/31/23944) Cognitive Limitations: Processing;Problem solving;Attention to task (10/31/23944) Psychosocial: Patient can communicate basic needs;Patient can converse in a social setting (10/31/23944) Sitting posture: Forward head;Rounded shoulders (10/31/23944) Standing posture: Forward head;Rounded shoulders;Posterior lean (10/31/23944) Safety awareness: The Patient can communicate basic needs.;Needs cueing supervision. (10/31/23944) Other Findings Endurance: Poor (10/31/23944) Light touch sensation: LUE;RUE;Intact (10/31/23944) Proprioception: Intact (10/31/23944) Coordination: LUE;RUE;Gross motor;Fine motor;Intact (10/31/23944) Tone: Normal tone (10/31/23944) Edema: No edema noted (10/31/23944) Current Functional Status: Bilateral Upper Extremity Range of Motion: WFL (10/30/23 1150) Strength Assessment: (/5 throughout) (10/30/23 1150) Self Care Grooming: Supervision (Please comment) (to wash face/comb hair) (10/31/23944) Dressing Upper Body: Minimal Assistance (to elmer gown) (10/31/23944) Lower Body: Dependent (to elmer socks) (10/31/23944) Functional Ambulation Assistive Device: Rolling walker (10/31/23944) Distance in feet:: 2 (10/31/23944) Level of Assistance: Moderate Assistance (x2) (10/31/23944) Bed Mobility Supine-Sit: Minimal Assistance (x2) (10/30/231149) Sit-Supine: Minimal Assistance (10/31/23944) OT Transfers Sit-Stand: Minimal Assistance (x 2 from chair) (10/31/23944) Stand-Sit: Minimal Assistance (x2 to bed) (10/31/23944) Balance Sit (Static): Fair (-) (10/31/23944) Sit (Dynamic): Poor (+) (10/31/23944) Stand (Static): Poor (10/31/23944) Stand (Dynamic): Poor (-) (10/31/23944) Alarm Status Patient positioned in: Bed (10/31/23944) With: Bed alarm intact and functioning and call boggs in reach (10/31/23944) Patient and Family Goals: to get well Patient Education Education Topic: Role of OT;Plan of care goals (10/31/23944) Review of Precautions: Safety;Fall;Skin (10/31/23944) Method of Education: Verbalized to patient (10/31/23944) Education Provided to: Patient (10/31/23944) Response to Education: Receptive and agreeable to education (10/31/23944) Barriers to learning: Medical status;Cognition (10/31/23944) Preferred learning method: Combination (10/31/23944) Treatment Provided: Therapeutic Activity: 14 minutes Deficits Requiring O.T. Treatment: Deficits requiring O.T. treatment needs: ADL/self-care;Endurance;Balance;Functional mobility;Safety;Upper extremity strength;Weakness;Functional cognition () Goals: Demonstrates Self-care at: Feeding: Modified Independent Grooming: Modified Independent Toileting: Supervision UE dressing: Modified Independent UE bathing: Modified Independent LE dressing: Supervision LE bathing: Supervision Demonstrates Bed Mobility at: Supine-Sit: Supervision Sit-Supine: Supervision Demonstrates transfers at: Sit-Stand: Supervision Stand-Sit: Supervision Bed-Chair: Supervision Toilet: Supervision Shower/Tub: Supervision Demonstrates functional ambulation at: Assistive device: appropriate device as needed Level of Assistance: Contact guard Balance: Static Sitting: Fair Dynamic Sitting: Fair Static Standing: Fair Dynamic Standing: Fair- Strength/ROM: Increase BUE strength 1/2 muscle grade Endurance: Increase endurance to 30/30 minutes in order to improve participation in ADL tasks and general mobility Safety awareness/Cognition: Increase safety awareness during functional mobility Goal Time Frame: 10 visits Assessment: Pt was admitted to [facility] for the above dx. Pt was pleasant and cooperative during her OOBOT evaluation this date. Alert and oriented x 4; however, still confused at times. Upon arrival, ptwas seated OOB in chair and agreeable to therapy services. Upon exam, pt performed UE dressing taskwith min A secondary to poor processing/problem solving throughout task and LE dressing task with total A due to safety concern from increased dizziness with slight mobility. Sit<>stand transfer required min A x 2 from chair. Pt ambulated 2 ft from chair to bed with use of a rolling walker and mod A x 2 due to unsteadiness/posterior lean. Mobility currently limited due to unsteadiness/assistance level required/dizziness. Following session, pt was noted to return to supine position in bed with min A to lift lower extremities. Call boggs in reach. All needs met. Currently, pt presents withdifficulty in ADL completion and general mobility secondary to decreased strength, balance, endurance, safety awareness, and overall current medical status. Pt would benefit from acute OT services toincrease her independence with ADL tasks and general mobility. In regard to discharge, please consider post-acute care services which may include home health, custodial, outpatient therapy or inpatient rehabilitation. The level of care will be determined in collaboration with patient, family/caregiver and care team members. Treatment Plan: Functional Cognition, Energy Conservation, Safety, Bed mobility training, Functional Ambulation, Transfer training, ROM exercises, Upper extremity strengthening, Balance activities, ADL training, Endurance, and Educate on safety with ADL and mobility. Anticipated Frequency (on eval): 3 to 5 times per week (10/31/23944) AM-PAC Help From Another Person Eating Meals: A little (10/31/23944) Help From Another Person Taking Care of Personal Grooming: A little (10/31/23944) Help From Another Person To Put On/Take Off Upper Body Clothing: A little (10/31/23944) Help From Another Person To Put On/Take Off Lower Body Clothing: Total (10/31/23944) Help From Another Person Toileting: A lot (10/31/23944) Help From Another Person Bathing: A lot (10/31/23944) OT AM-PAC Score: 14 (10/31/23944) OT AM-PAC t-Scale Score: 33.39 (10/31/23944) HLM (Highest Level of Mobility) Goal: Level 4 move to chair/commode (10/31/23944) A portion of this AM-PAC assessment not scored based on functional assessment; rather clinical decision making utilized based on current findings and/or prior level of function. Please refer to future AM-PAC calculations of functional ability as they become available. * Juju Martinez OTR/Anitha - 10/30/2023 11:50 AM EDTAssociated Order(s): ADULT OCCUPATIONAL THERAPY CONSULT IP GENERAL BEDREST EVALUATION - Occupational Therapy [address] [address] Name: Cherelle Hammond Location: [facility] G510/A Date: 10/30/2023 Time: 1150 Cherelle Hammond is a 83 year old female. Patient Status: Inpatient Insurance: Payor: [facility]ANT[facility] Plan: [facility] GR[facility] MDC ADV PPO Product Type: *No Product type* Patient Seen: at bedside, nursing cleared patient for therapy Patient Identified By: Name, ID Band and Date Diagnosis: s/p fall with SDH and rib fractures (10/30/23 1150) Status of treatment: Bedrest evaluation completed (10/30/23 1150) Orders: OT evaluation and treatment (10/30/23 1150) Weight Bearing Status: Weight bearing as tolerated (10/30/23 1150) Precautions: Alarms;Falls;Safety (10/30/23 1150) Total Treatment Time: 15 (10/30/23 115) Past Medical History: Past Medical History: Diagnosis Date Allergic rhinitis [...] 04/22/2020 Sjoegren syndrome 06/19/2013 Past Surgical History: Past Surgical History: Procedure Laterality Date COLONOSCOPY 02/06/2007 COLONOSCOPY, DIAGNOSTIC (RECTUM) 09/06/2012 adenomatous polyp--repeat in 5 yrs 09/06/17 COLONOSCOPY, DIAGNOSTIC (RECTUM) 11/19/2015 adenomatous polyp, repeat 5 yrs/COLONOSCOPY FLEXIBLE PROXIMAL DIAGNOSTIC performed by Nils Carrington MD at [facility] COLONOSCOPY, DIAGNOSTIC (RECTUM) 07/08/2021 normal bx, diverticulosis / COLONOSCOPY FLEXIBLE PROXIMAL DIAGNOSTIC performed by Hannah Sanchez MD at [facility] EGD, FLEXIBLE, DIAGNOSTIC 09/28/2010 lg hiatal hernia EGD, FLEXIBLE, DIAGNOSTIC N/A 07/08/2021 normal bx, small paraesophageal hernia / ESOPHAGOGASTRODUODENOSCOPY (EGD), FLEXIBLE, TRANSORAL, DIAGNOSTIC performed by Hannah Sanchez MD at [facility] LAPAROSCOPY,RENAL CYSTS 02/07/2008 PARAESOPHAGEAL HERNIA REPAIR, LAP W/ MESH 11/15/2010 LAPAROSCOPIC PARAESOPHAGEAL HERNIA REPAIR W/MESH performed by GINA MACHUCA at [facility] PATIENT EDU, LUMPECTOMY FOR MALIGN* unknown - benign RADIUS/ULNAR FX ORTHO PREFAB 02/06/2010 pinning s/p traumatic fx UPPER GI ENDOSCOPY/EXAM 11/15/2010 UPPER GI ENDOSCOPY SIMPLE performed by GINA MACHUCA at OR [facility] Social History/Disposition Lives with: Alone (10/30/23 1150) Assistance available: Yes (son lives next door. also has caregivers in the hour 4 days a week for 4hours a day) (10/30/23 1150) Dwelling type: Single story home (10/30/23 1150) Entry steps: None (10/30/23 1150) Inside steps: None (10/30/23 1150) Bedroom location: 1st floor (10/30/23 1150) Bath location: 1st floor full bath (10/30/23 1150) Prior Level of Function Reported by: Patient (10/30/23 1150) Ambulation: Ambulatory with device (10/30/23 1150) Ambulatory Device: Cane (10/30/23 1150) Grooming: Independent (10/30/23 1150) Bathing: Independent (10/30/23 1150) Dressing: Independent (10/30/23 1150) Feeding: Independent (10/30/23 1150) Toileting: Independent (10/30/23 1150) Meal Prep: Assistance (10/30/23 1150) Homemaking: Assistance (10/30/23 1150) Shopping: Assistance (10/30/23 1150) Medication Management: Assistance (10/30/23 1150) Durable Medical Equipment at home: Straight cane;Rolling walker; hemiwalker, Tub bench (10/30/23 1150) Pain: No complaints of pain Observations Consciousness: Alert (10/30/23 1150) Orientation: Oriented times 4 (10/30/23 1150) Cognitive Limitations: Processing (10/30/23 1150) Psychosocial: Patient can communicate basic needs;Patient can converse in a social setting (10/30/23 1150) Sitting posture: Forward head;Rounded shoulders;Posterior lean (10/30/23 115) Safety awareness: Needs cueing supervision. (10/30/23 115) Other Findings Endurance: Poor (10/30/23 115) Light touch sensation: Intact (10/30/23 115) Proprioception: Intact (10/30/23 115) Coordination: Intact (10/30/231149) Tone: Normal tone (10/30/23 115) Edema: No edema noted (10/30/231149) Current Functional Status: Bilateral Upper Extremity Range of Motion: WFL (10/30/23 115) Strength Assessment: (4/5 throughout) (10/30/231149) Self Care Grooming: Supervision (Please comment) (wash face) (10/30/231149) Bed Mobility Supine-Sit: Minimal Assistance (x2) (10/30/231149) Sit-Supine: Moderate Assistance (x1, max A x1) (10/30/231149) Balance Sit (Static): (Poor- to poor+) (10/30/23 115) Sit (Dynamic): (Poor- to poor+) (10/30/231149) Alarm Status Patient positioned in: Bed (10/30/231149) With: Bed alarm intact and functioning and call boggs in reach (10/30/231149) Patient and Family Goals: to get well Patient Education Education Topic: Role of OT;Plan of care goals (10/30/231149) Review of Precautions: Fall;Safety (10/30/231149) Education Provided to: Patient (10/30/231149) Response to Education: Has decreased awareness and understanding of education (10/30/231149) Barriers to learning: Medical status;Cognition (10/30/231149) Preferred learning method: Combination (10/30/231149) Treatment Provided: Evaluation Moderate Complexity 15 minutes - 58649: Patient was cooperative, pleasant, alert, and confused during treatment session. Moderate complexity evaluation performed and 3-5 activity limitations were identified, including ADL deficit, functional mobility deficit, bed mobility deficit, cognitive deficit, decreased strength, decreased endurance, and impaired balance. Minimal or moderate modification of the functional task was necessary to complete the evaluation. Deficits Requiring O.T. Treatment: Deficits requiring O.T. treatment needs: ADL/self-care;Balance;Endurance;Functional mobility;Safety;Upper extremity strength (10/30/23 1150) Goals: Increase Strength of: increase 1/2 grade, Demonstrates sitting Balance at: modified independent Demonstrates self care at: Grooming at Modified Independent , , Demonstrates Activity Tolerance at 40/45 minutes, Demonstrates Bed Mobility with: Supine to Sit: Modified Independent and Sit to Supine: Modified Independent , Goal Time Frame: 10 visits Assessment: Patient is an 83 year old female admitted s/p fall and presents with moderate deficits in all areas of care and mobility due to decreased strength, balance, activity tolerance, safety, level of alertness, cognition and overall medical condition. Patient was alert and oriented but confused at times. Good strength in bilateral UE but required increased time and cues to process information. Setup for grooming task. Initiated bringing bilateral LE off edge of bed to sit up but had briefepisode of syncopal episode but quickly came to. Initiated scooting to the edge of the bed and had two more episodes of syncopal episodes so returned to supine in bed. Blood pressure checked and did not drop during session. Nursing and team made aware. Would benefit from continued OT treatment to maximize level of functional independence. Please consider post- acute care services which may includefirsthealth, custodial, outpatient therapy or inpatient rehabilitation. The level of care will be determined in collaboration with patient, family/caregiver and care team members. . Will complete OOB and functional evaluation as able Treatment Plan: Functional Cognition, Energy Conservation, Safety, Bed mobility training, Upper extremity strengthening, Balance activities: , ADL training , and Endurance Anticipated Frequency (on eval): 3 to 5 times per week (10/30/23 1150) A portion of this AM-PAC assessment not scored based on functional assessment ; rather clinical decision making utilized based on current findings and/or prior level of function. Please refer to future AM-PAC calculations of functional ability as they become available. Juju Martinez MS OTR/Anitha Occupational Therapy [facility] 10/30/2023 2:00 PM * Fabiana Membreno, PT - 10/30/2023 11:35 AM EDTAssociated Order(s): ADULT PHYSICAL THERAPY CONSULT IP I, Fabiana Membreno, PT, DPT, supervised and was present for the duration of the following session. I also read, agree with, and endorse the findings of the following therapy note. Fabiana Membreno PT, DPT [facility]/Acute Rehab [facility] GENERAL BEDREST EVALUATION - Physical Therapy [address] [address] Name: Cherelle Hammond Location: [facility] G510/A Date: 10/30/2023 Time: 1134 Cherelle Hammond is a/an 83 year old female. Patient Status: Inpatient Insurance: Payor: [facility]ANT[facility] Plan: [facility] MDC ADV PPO Product Type: *No Product type* Patient Seen: at bedside, nursing cleared patient for therapy Patient Identified By: Name, ID Band and Date Diagnosis: fall resulting in SDH, R rib fxs (10/30/23 113) Status of treatment: Bedrest evaluation completed (10/30/23 113) Orders: PT evaluation and treatment;OOB (10/30/23 113) Weight Bearing Status: Weight bearing as tolerated (10/30/23 113) Precautions: Alarms;Falls;Safety (10/30/23 113) Total Treatment Time--free text: 15 (10/30/23 113) Past Medical History: Past Medical History: Diagnosis Date Allergic rhinitis [...] 04/22/2020 Sjoegren syndrome 06/19/2013 Past Surgical History: Past Surgical History: Procedure Laterality Date COLONOSCOPY 02/06/2007 COLONOSCOPY, DIAGNOSTIC (RECTUM) 09/06/2012 adenomatous polyp--repeat in 5 yrs 09/06/17 COLONOSCOPY, DIAGNOSTIC (RECTUM) 11/19/2015 adenomatous polyp, repeat 5 yrs/COLONOSCOPY FLEXIBLE PROXIMAL DIAGNOSTIC performed by Nils Carrington MD at [facility] COLONOSCOPY, DIAGNOSTIC (RECTUM) 07/08/2021 normal bx, diverticulosis / COLONOSCOPY FLEXIBLE PROXIMAL DIAGNOSTIC performed by Hannah Sanchez MD at [facility] EGD, FLEXIBLE, DIAGNOSTIC 09/28/2010 lg hiatal hernia EGD, FLEXIBLE, DIAGNOSTIC N/A 07/08/2021 normal bx, small paraesophageal hernia / ESOPHAGOGASTRODUODENOSCOPY (EGD), FLEXIBLE, TRANSORAL, DIAGNOSTIC performed by Hannah Sanchez MD at [facility] LAPAROSCOPY,RENAL CYSTS 02/07/2008 PARAESOPHAGEAL HERNIA REPAIR, LAP W/ MESH 11/15/2010 LAPAROSCOPIC PARAESOPHAGEAL HERNIA REPAIR W/MESH performed by GINA MACHUCA at [facility] PATIENT EDU, LUMPECTOMY FOR MALIGN* unknown - benign RADIUS/ULNAR FX ORTHO PREFAB 02/06/2010 pinning s/p traumatic fx UPPER GI ENDOSCOPY/EXAM 11/15/2010 UPPER GI ENDOSCOPY SIMPLE performed by GINA MACHUCA at [facility] Subjective: Patient was lying in bed upon arrival and was happy to hear we wanted to get her out ofbed. Social History/Disposition Lives with: Alone (10/30/23 1150) Assistance available: Yes (son lives next door. also has caregivers in the hour 4 days a week for 4hours a day) (10/30/23 1150) Dwelling type: Single story home (10/30/23 1150) Entry steps: None (10/30/23 1150) Inside steps: None (10/30/23 1150) Bedroom location: 1st floor (10/30/23 1150) Bath location: 1st floor full bath (10/30/23 1150) Prior Level of Function Reported by: Patient;Chart review (10/30/23 1135) Ambulation: Ambulatory with device (10/30/23 1135) Ambulatory Device: Cane (09/23/24 1135) Devices at home: Straight cane;Shower chair;Rolling walker (10/30/231134) Observations Consciousness: Alert;Confused (10/30/231134) Orientation: Oriented times 4 (10/30/231134) Psychosocial: Patient can communicate basic needs;Patient can converse in a social setting (10/30/231134) Other Findings: Yes (10/30/231134) Findings: Light touch sensation (10/30/231134) Light Touch Sensation Results: Intact;LLE;RLE (10/30/231134) Sitting Posture: Rounded shoulders (10/30/231134) Pain: No complaints of pain Range of Motion Range of Motion: WFL (10/30/231134) Strength Assessment Strength Assessment: Deficits noted (10/30/231134) WNL, except: LLE;RLE (10/30/231134) LLE: Hip;Knee;4-/5;Ankle;4+/5 (10/30/231134) RLE: Hip;Knee;4-/5;Ankle;4+/5 (10/30/231134) P.T. Bed Mobility Supine-Sit: Minimal Assistance (x2) (10/30/231134) Sit-Supine: (moderate assist of 1 and maximum assist of 1) (10/30/231134) Patient and or Family Goal(s): to get well and to return home Patient Education Review of Precautions: Safety;Fall (10/30/231134) Safety Awareness: Patient verbalizes insight of current deficits;Patient does not demonstrates carryover of insight during functional tasks (10/30/231134) Preferred learning method: Combination (10/30/231134) Barriers to learning: (confusion) (10/30/231134) Method of Education: Verbalized to patient (10/30/231134) Topic of Education: Safety with mobility, Goals/plan of care, and Fall prevention Method of Education: Verbal discussion and explanation provided to patient: verbalized understanding and or agreement of this information Treatment Provided: Evaluation Moderate Complexity 15 minutes - 55787: Patient was pleasant and motivated during treatment session. Moderate complexity evaluation performed and 1-2 personal factors or comorbidities were identified that will impact plan of care, including history of dementia. Patient presents with limitations in strength, bed mobility, transfers, gait, balance, endurance, and safety, which will impact plan of care. These limitations will be addressed by the goals set for this patient. Alarm Status Patient positioned in: Bed (10/30/231134) With: Bed alarm intact and functioning and call boggs in reach (10/30/231134) Treatment Status: Treatment at bedside (10/30/231134) Goals: Supine to sit: supervision Sit to supine: supervision Sitting balance: fair Increase Strength of: BLE to 5/5 Assess OOB mobility Time Frame: 10 visits Assessment: Patient is 83 y/o female with dx fall resulting in SDH and R rib fxs. Prior to admission, patient lives alone and has a son and caregivers to help. Patient was independent with mobility with a cane. Patient attempted supine to sit transfer with minimal assist x2. Upon sitting up the patient had 3 brief syncopal episodes. She did not seem to realize she was passing out as she kept saying, "I'm okay". Patient was laid back down with moderate assist x1 and maximal assist x1 where she felt better and did not have another episode. Vitals were stable throughout. Patient RN was notified and enters room. Patient oriented throughout. Bedrest evaluation completed this date secondary to syn copal episodes. Patient would benefit from continued PT to maximize functional independence. Will defer discharge considerations until out of bed mobility assessed. Deficits requiring P.T. treatment needs: Safety;Mobility;Balance;Weakness;Endurance;Lower extremitystrength (10/30/231134) Equipment Needs: Equipment needs: (tbd) (10/30/231134) Treatment Plan: Bed mobility, transfer training, Strengthening exercises: BLE, balance training Assess OOB mobility Anticipated Frequency (on eval): 3 to 5 times per week (10/30/231134) AM PAC Score with Stairs: AM-PAC assessment not scored at this time due to bedrest evaluation. Please refer to future AM-PAC calculations of functional mobility as they become available. Imelda MCGARRY Physical Therapy [facility] * Allyson Bruce, [employer]ADLE CAR OPERATOR - 10/30/2023 10:42 AM EDTAssociated Order(s): ADULT SPEECH THERAPY CONSULT IP (ACUTE CARE REHAB) CLINICAL BEDSIDE SWALLOW EVALUATION - Speech-Language Pathology [address] [address] Name: Cherelle Hammond Location: [facility] G510/A Date: 10/30/2023 Time: 10:43 AM Patient Status: Inpatient Insurance: Payor: [facility] / Plan: [facility] MDC ADV PPO / Product Type: *No Product type* / GENERAL INFORMATION: Admission Date: 10/29/2023 Referring Physician: MD Brian Pertinent Medical History: Per Epic H&P 10/29/23: "Cherelle Bird is an 83 year old female patient with a pmhx of dementia, hyperparathyroidism,IBS, GERD, B-cell lymphoma, Dyslipidemia, HTN, Sjogren colitis (recently discharged for colitis and on Zosyn) was walking in her home in the morning and she bumped into something which caused her to fall down and struck her head on the concrete floor. It was an unwitnessed fall and her son found her on thefloor. Unknown LOC. She was brought to [facility] and was scanned. At which point she was found tohave a subdural and two right rib fractures. At which point she was transferred to [facility] via life flight. Before getting to the trauma bay patient was given 2g of Keppra, 1L of NSS, and 4.5 grams of Zosyn. Vital en route ranges from 120-140 systolic, 70HR, and O2 saturation in the high 90s on RA. GCSof 14 (due to confusion) Primary survey intact. Secondary survey was notable for right lateral chest wall tenderness, RLQ abdominal tenderness, and minor ecchymosis in her sacral region. Temperature: 36.9. E-fast negative. Blood thinners: none Injury Complex: Tiny acute right parafalcine subdural hematoma; measuring 3mm thick Small right posterior scalp contusion Right rib fractures " Past Medical History: Diagnosis Date Allergic rhinitis [...] performed by Nils Carrington MD at [facility] COLONOSCOPY, DIAGNOSTIC (RECTUM) 07/08/2021 normal bx, diverticulosis / COLONOSCOPY FLEXIBLE PROXIMAL DIAGNOSTIC performed by Hannah Sanchez MD at [facility] EGD, FLEXIBLE, DIAGNOSTIC 09/28/2010 lg hiatal hernia EGD, FLEXIBLE, DIAGNOSTIC N/A 07/08/2021 normal bx, small paraesophageal hernia / ESOPHAGOGASTRODUODENOSCOPY (EGD), FLEXIBLE, TRANSORAL, DIAGNOSTIC performed by Hannah Sanchez MD at [facility] LAPAROSCOPY,RENAL CYSTS 02/07/2008 PARAESOPHAGEAL HERNIA REPAIR, LAP W/ MESH 11/15/2010 LAPAROSCOPIC PARAESOPHAGEAL HERNIA REPAIR W/MESH performed by GINA MACHUCA at [facility] PATIENT EDU, LUMPECTOMY FOR MALIGN* unknown - benign RADIUS/ULNAR FX ORTHO PREFAB 02/06/2010 pinning s/p traumatic fx UPPER GI ENDOSCOPY/EXAM 11/15/2010 UPPER GI ENDOSCOPY SIMPLE performed by GINA MACHUCA at OR [facility] Current Diet/Dysphagia History: NPO except meds; pt passed nursing dysphagia screen. Pt denies any hx of dysphagia and reports consuming regular solids with thin liquids prior to admission. Cognitive-Communication: Pt awake and alert, able to follow basic commands, and express wants/needsappropriately. Pt with dx of SDH; however,cognitive- communication evaluation deferred at this time,as pt with hx of dementia. Barriers to Learning: Medical Status Hearing Acuity: Deferred Best Learning Method: Auditory Pain: No complaints of pain ORAL MECHANISM EXAM: Facial Symmetry Within functional limits Labial Function Within functional limits Lingual Function Within functional limits Velar Function Did not assess Dentition: Natural PROTECTIVE MECHANISMS: Volitional Swallow Within Functional Limits Volitional Throat Clearing Did not test Volitional Cough Did not test Vocal Quality Within Functional Limits Tracheostomy Tube: Not Present Ventilator Status: Not Applicable SWALLOWING FUNCTION: ORAL PREPARATION PHASE: Puree (IDDSI Level 4): Within functional limits Soft and Bite-Sized (IDDSI Level 6): Within functional limits Regular (IDDSI Level 7): Within functional limits Thin Liquid (IDDSI Level 0): Within functional limits ORAL PHASE: Puree (IDDSI Level 4): Within functional limits Soft and Bite-Sized (IDDSI Level 6): Within functional limits Regular (IDDSI Level 7): Within functional limits Thin Liquid (IDDSI Level 0): Within functional limits PHARYNGEAL PHASE: Puree (IDDSI Level 4): Within functional limits Soft and Bite-Sized (IDDSI Level 6): Within functional limits Regular (IDDSI Level 7): Within functional limits Thin Liquid (IDDSI Level 0): Within functional limits RECOMMENDATIONS/PLAN: Videofluoroscopy: Not indicated Diet Level: Regular Liquid Level: Thin Presentation of Medication: As tolerated Positioning: Seated with 90 degree hip flexion Level of Supervision: Assist PRN Use of Straws: allowed Compensatory Techniques to be Utilized During PO Intake: Small Bites/Sips, Alternate Solids & Liquids, and Slow Rate of Intake Additional findings: N/A ANTICIPATED FREQUENCY (ON EVAL): N/A DIAGNOSIS/IMPRESSIONS: Diagnosis/Impressions: Oral and pharyngeal phases within functional limits Pt was presented with trials of thin liquids (IDDSI Level 0) via tsp, cup, and straw, puree (IDDSI level 4), soft & bite-sized (IDDSI level 6), and regular (IDDSI level 7) consistencies. Oral phase was judged to be within functional limits for trials presented. Pharyngeal phase suspected to be within functional limits for swallow timing and hyolaryngeal elevation. No overt s/s of penetration/aspiration noted for thin liquids via tsp, cup, and straw, puree, soft & bite-sized, or regular consistencies. Rehab Potential: N/A TREATMENT PLAN: Swallowing Treatment: Not Indicated Treatment Goals: N/A Additional Recommendations: If s/s of aspiration or difficulty noted, downgrade as appropriate and re-consult [employer]. The above information was discussed with the patient/RN/Dr. Mckeon. Yes The patient/RN/Dr. Javier was in Agreement * Joyce Matt DO - 10/29/2023 2:24 PM EDTAssociated Order(s): NEUROSURGERY CONSULT IP NEUROLOGICAL SURGERY CONSULT NOTE [address] [address] Name: Cherelle Hammond Location: Date: 10/29/2023 Time: 2:24 PM Requesting service: Emergency Medicine Reason for consult: "Parafalcine SDH" HISTORY OF PRESENT ILLNESS: Cherelle Hammond is a 83 year old female patient with relevant past medical history of vertigo, asthma, dementia that presents to our institution due to small parafalcine SDH. Patient states that she fell two days ago. She missed the last step and hit the back of her head. Preceding to the fall she was feeling dizzy. Patient denies any blood thinners. Patient denies new or worsening GIRARD/N/V, confusion, memory deficits, speech deficits, word finding difficulty, numbness/weakness/tingling in extremities, or gait instability. PAST MEDICAL HISTORY: Past Medical History: Diagnosis Date Allergic [...] Mild mitral regurgitation 04/22/2020 Sjoegren syndrome 06/19/2013 PAST SURGICAL HISTORY: Past Surgical History: Procedure Laterality Date COLONOSCOPY 02/06/2007 COLONOSCOPY, DIAGNOSTIC (RECTUM) 09/06/2012 adenomatous polyp--repeat in 5 yrs 09/06/17 COLONOSCOPY, DIAGNOSTIC (RECTUM) 11/19/2015 adenomatous polyp, repeat 5 yrs/COLONOSCOPY FLEXIBLE PROXIMAL DIAGNOSTIC performed by Nils Carrington MD at [facility] COLONOSCOPY, DIAGNOSTIC (RECTUM) 07/08/2021 normal bx, diverticulosis / COLONOSCOPY FLEXIBLE PROXIMAL DIAGNOSTIC performed by Hannah Sanchez MD at [facility] EGD, FLEXIBLE, DIAGNOSTIC 09/28/2010 lg hiatal hernia EGD, FLEXIBLE, DIAGNOSTIC N/A 07/08/2021 normal bx, small paraesophageal hernia / ESOPHAGOGASTRODUODENOSCOPY (EGD), FLEXIBLE, TRANSORAL, DIAGNOSTIC performed by Hannah Sanchez MD at [facility] LAPAROSCOPY,RENAL CYSTS 02/07/2008 PARAESOPHAGEAL HERNIA REPAIR, LAP W/ MESH 11/15/2010 LAPAROSCOPIC PARAESOPHAGEAL HERNIA REPAIR W/MESH performed by GINA MACHUCA at [facility] PATIENT EDU, LUMPECTOMY FOR MALIGN* unknown - benign RADIUS/ULNAR FX ORTHO PREFAB 02/06/2010 pinning s/p traumatic fx UPPER GI ENDOSCOPY/EXAM 11/15/2010 UPPER GI ENDOSCOPY SIMPLE performed by GINA MACHUCA at OR [facility] SOCIAL HISTORY: Social History Socioeconomic History Marital status: Spouse name: Not on file Number of children: Not on file Years of education: Not on file Highest education level: Not on file Occupational History 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 (Adult - for ages 18 years and over): Not on file Housing Stability: Not on file Social History Substance and Sexual Activity Drug Use No FAMILY HISTORY: Family History Problem Relation Name Age of Onset Cancer Mother breast Hypertension Mother Hyperlipidemia Son MEDICATIONS: Current Medications - Prior to This Encounter Medication Sig Last Dose Discont. Lisinopril 20 MG Oral Tablet (Prinivil) TAKE 1 TABLET EVERY MORNING Montelukast Sodium 10 MG Oral Tablet (Singulair) TAKE 1 TABLET BEFORE BEDTIME Pantoprazole Sodium 40 MG Oral Tablet Delayed Release (Protonix) Take 1 Tablet by mouth in the morning. Fluticasone Propionate HFA 110 MCG/ACT Inhalation Aerosol Inhale 2 Puffs by mouth in the morning and 2 Puffs before bedtime. Meclizine HCl 25 MG Oral Tablet (Antivert) Take 1 Tablet by mouth 3 times a day as needed for Dizziness. Patient not taking: Reported on 10/11/2023 amLODIPine Besylate 5 MG Oral Tablet (Norvasc) TAKE 1 TABLET EVERY MORNING traMADol HCl 50 MG Oral Tablet (Ultram) Take 1 Tablet by mouth every 6 hours as needed (pain). Sulfamethoxazole-Trimethoprim 800-160 MG Oral Tablet (Bactrim DS) Take 1 Tablet by mouth in the morning and 1 Tablet before bedtime. Do all this for 7 days. Until gone. Cetirizine HCl 10 MG Oral Tablet (ZyrTEC) TAKE 1 TABLET EVERY MORNING Estradiol 0.1 MG/GM Vaginal Cream (Estrace) Administer 1 g into and around the vagina 1-3 times perweek Famotidine 20 MG Oral Tablet (Pepcid) Take 1 Tablet by mouth at bedtime. Lactobacillus Probiotic Oral Tablet once. traZODone HCl 50 MG Oral Tablet (Desyrel) TAKE 1 TABLET AT BEDTIME Atorvastatin Calcium 10 MG Oral Tablet (Lipitor) Take 1 Tablet by mouth in the morning. Albuterol Sulfate HFA 108 (90 Base) MCG/ACT Inhalation Aerosol Solution USE 2 INHALATIONS ORALLY EVERY 4 HOURS NEEDED FORWHEEZING polyethylene glycol 3350 (MIRALAX) 255 gram powder Take 17 g by mouth as needed for Constipation. Dissolve one heaping tablespoon in 8 ounces of water or juice. ALLERGIES: Review of patient's allergies indicates: Allergen Reactions Aspirin Anaphylaxis Lip swelling Benadryl [Diphenhydramine Hcl] Edema face/lips/tongue Ibuprofen Edema face/lips/tongue Red Dye Edema face/lips/tongue and Hives Penicillins Unknown REVIEW OF SYSTEMS: per HPI PHYSICAL EXAMINATION: Vital signs over last 24 hours: Systolic BP: Most Recent Systolic BP Av.7 mmHg Min: 104 mmHg Max: 126 mmHg Temperature: No data recorded Pulse: Pulse Avg: Pulse Av.1 Min: 76 Max: 82 Respirations: Resp Av.7 Min: 14 Max: 19 SpO2: SpO2 Av % Min: 96 % Max: 98 % General Exam: Constitutional: Appearance - No acute distress, well nourished Head and face: normocephalic Eyes: normal lids, normal sclera and normal conjunctiva Neck: supple, symmetrical Respiratory: normal effort, clear to auscultation bilaterally Cardiovascular: normal heart sounds, regular rate and rhythm Abdomen: no pain upon palpation Skin: no rashes, lesions, or ulcers noted Psychiatric: normal affect NEUROLOGIC EXAMINATION: Revised [place] Coma Scale (GCS-P): Eyes Open: 4 = spontaneous Best Verbal Response: 5 = verbally appropriate for age Best Motor Response: 6 = obeys commands appropriate for age Coma Score: 15 Mental status: Alert, oriented to time, place and person Cranial nerve exam: CN II, III - PERRL and visual chahal full CN III, IV, - Extra-ocular movements intact, no nystagmus CN V - Facial sensation intact and equal bilaterally CN VII - no facial assymetry CN VIII - hearing grossly intact CN IX, X, XII - tongue and uvula midline CN XI - good shoulder shrug Reflexes: Reflexes are 2 + and symmetrical throughout. Plantar responses are downgoing bilaterally. No clonus. Coordination: No dysmetria or cerebellar drift Motor strength: Muscle strength is 5/5 in bilateral upper and lower extremities. Good bulk and tone in all four extremities. Pronator drift: absent Sensation: Intact to light touch LABS: Chemistry: Lab Results Component Value Date/Time BUN 12 01/11/2023 11:16 AM BUN 21 (H) 12/26/2019 12:12 PM CREAT 0.6 01/11/2023 11:16 AM CREAT 0.9 12/26/2019 12:12 PM GFRESTIMATED 58.5 (L) 12/26/2019 12:12 PM NA 138 01/11/2023 11:16 AM NA 140 12/26/2019 12:12 PM POTASSIUM 4.2 01/11/2023 11:16 AM POTASSIUM 4.1 12/26/2019 12:12 PM CO2 24 01/11/2023 11:16 AM CO2 28 12/26/2019 12:12 PM Coagulation studies: No results found for: "PATINR", "INR" Blood count: Lab Results Component Value Date/Time WBC 20.40 (H) 10/29/2023 02:03 PM WBC 16.47 (H) 12/26/2019 12:12 PM HGB 13.6 10/29/2023 02:03 PM HGB 14.3 12/26/2019 12:12 PM HCT 41.8 10/29/2023 02:03 PM HCT 42.9 12/26/2019 12:12 PM PLT 245 10/29/2023 02:03 PM PLT 300 12/26/2019 12:12 PM IMAGING STUDIES: My Interpretation of Current Images: CT Head without contrast: parafalcine SDH IMPRESSION: Cherelle Hammond is a 83 year old female patient with relevant past medical history of vertigo, asthma, dementia that presents to our institution due to small parafalcine SDH. Present on admission: There is no height or weight on file to calculate BMI. Patient Active Problem List Diagnosis Dyslipidemia HTN, goal below 140/90 Asthma, mild persistent Sjogren's syndrome (HCC) Hereditary and idiopathic peripheral neuropathy IBS (irritable bowel syndrome) Gastroesophageal reflux disease with esophagitis MEDICATION USE AGREEMENT History of B-cell lymphoma Prediabetes High risk for fracture due to osteoporosis by DEXA scan Mild mitral regurgitation Diastolic dysfunction Hyperparathyroidism, primary (HCC) Aortic ectasia (HCC) Mild dementia (HCC) Incomplete bladder emptying Chest heaviness Altered mental status RECOMMENDATIONS: Q1 hr neuro checks Admission to ICU Keppra 500 BID x7 days Hold Ap/Ac x14 days 6 hour interval repeat CTH Ok for DVT chemo ppx from nsgy perspective 24 hrs post stable rCTH Ok for regular diet from nsgy perspective if rCTH stable Case was discussed with chief resident. Joyce Matt, Neurosurgery PGY1 Associated attestation - Ed Camejo MD - 10/29/2023 3:25 PM EDT I saw and evaluated the patient today. I have reviewed the resident/fellow physician note and agree. Insignificant finding. F/u in TBI clinic in 3-[address] Will sign off. documented in this encounter Nursing Notes * Ness Quiles RN - 10/31/2023 1:40 PM EDT Dual Licensed Skin Assessment completed by Ness Stiles RN and Chanelle Wilson RN. The patient is/has a N/A Skin Breakdown (includes non blanchable erythema): Yes. Wound Type: Other, location blister appearance on R heel Wound Ostomy Nurse Notified: No - wound ostomy not needed at this time Wound already consulted Nursing interventions: elevation of heels Turn and repo Q 2 * Arti Macias RN - 10/30/2023 7:52 PM EDT Dual Licensed Skin Assessment completed by Arti Rangel RN and Mark Mujica RN. The patient is/has a N/A Skin Breakdown (includes non blanchable erythema): Yes. Right heel & Right big toe Nursing Interventions: Laurel bed, T/R Q2, heels elevated * Carla Padilla RN - 10/29/2023 8:31 PM EDT Dual Licensed Skin Assessment completed by Mark SKY and Agnes Kwok RN. The patient is/has a N/A Skin Breakdown (includes non blanchable erythema): Yes. Wound Type: Suspected pressure injury at bony prominence, location Right heel Right great toe Wound Ostomy Nurse Notified: No - wound ostomy not needed at this time Nursing interventions: Continue to monitor and assess daily, inspect heels q shift, keep elevated. * Betina Carrasco RN - 10/29/2023 6:55 PM EDT Skin assessment complete with Serena Gamboa RN. Righ heel with erythema with blister appearance Wound consulted documented in this encounter ED Notes * Mane Lopez, - 10/29/2023 2:02 PM EDT HISTORY OF PRESENT ILLNESS Cherelle Hammond is a 83 year old female who presents to the ED for evaluation of Fall and transfer of records. The patient was seen at 10/29/23 1355. Patient presents to the emergency department as a transfer from [facility] for subdural hematoma. Patient was walking this morning when she fell, striking her head. She it was unsure if she lost consciousness. She was not on anticoagulation. Imaging at [facility] showed to bright rib fractures in his subdural, prompting a [facility] transfer as a trauma alert. She was also recently admitted for ischemic colitis it was discharged 4 days ago.Patient reports no pain or symptoms upon arrival to the [facility] Emergency Department. GCS 15 en route and upon arrival. The patient's allergies, past history, and medications were reviewed. PHYSICAL EXAM Initial Vitals (see all): BP 108/71 | Pulse 82 | Resp 16 | O2 97 %, Room Air, None | Weight 64.3 kg | Height 160 cm | BMI 25.11 kg/m2 Physical Exam Vitals and nursing note reviewed. Constitutional: General: She is not in acute distress. Appearance: Normal appearance. She is well-developed. She is not ill-appearing or diaphoretic. HENT: Head: Normocephalic and atraumatic. Right Ear: External ear normal. Left Ear: External ear normal. There is impacted cerumen. Ears: Comments: No right hemotympanum. Nose: Nose normal. Comments: No septal hematoma. Mouth/Throat: Mouth: Mucous membranes are moist. Pharynx: Oropharynx is clear. Eyes: General: No scleral icterus. Extraocular Movements: Extraocular movements intact. Conjunctiva/sclera: Conjunctivae normal. Comments: Pupils 2 mm and reactive. Cardiovascular: Rate and Rhythm: Normal rate and regular rhythm. Pulses: Normal pulses. Heart sounds: Normal heart sounds. No murmur heard. Pulmonary: Effort: Pulmonary effort is normal. No respiratory distress. Breath sounds: Normal breath sounds. Abdominal: General: Bowel sounds are normal. There is no distension. Palpations: Abdomen is soft. Tenderness: There is no abdominal tenderness. There is no guarding. Musculoskeletal: General: No swelling. Cervical back: Normal range of motion and neck supple. No bony tenderness. Thoracic back: No bony tenderness. Lumbar back: No bony tenderness. Right lower leg: No edema. Left lower leg: No edema. Skin: General: Skin is warm and dry. Capillary Refill: Capillary refill takes less than 2 seconds. Coloration: Skin is not jaundiced or pale. Findings: Erythema (Mild sacral erythema) present. No bruising. Neurological: General: No focal deficit present. Mental Status: She is alert and oriented to person, place, and time. Psychiatric: Mood and Affect: Mood normal. Behavior: Behavior normal. PROCEDURES AND TREATMENTS ED Orders | ED Results MEDICAL DECISION MAKING Nursing notes and vital signs were reviewed. ED consults were placed. Differential Diagnoses Based on my history, physical exam, and evaluation, the differential includes, but is not limited, to the following diagnoses: acute coronary syndrome, cardiac injury, closed head injury, fracture, hematoma, intra-abdominal injury, spinal injury and vascular injury. Trauma Course Narrative: Patient was brought to the resuscitation room by [facility]. Full ATLS protocol was initiated underthe direction of the ED and trauma attendings. GCS was 15. Patient's airway was self maintained andbreathing was adequate on room air. Initial circulation assessment was unremarkable. Physical examination performed as noted above. Patient was removed from the spineboard with in-line stabilization technique and patient's back examined. eFAST performed and was negative. Additional treatments provided by trauma service (see separate note). Patient's care was transferred to the trauma service for continued management and admission. Risk Decision regarding hospitalization. Clinical Impressions Trauma SDH (subdural hematoma) (HCC) Closed fracture of multiple ribs of right side, initial encounter Disposition Admitted. I discussed the management of this patient with the admitting provider and I made a decision to admit the patient. Admission Order Ordered Status . 10/29/23 1357 Admit for Inpatient Services (incl ZPO) ONCE Acknowledged Mane Lopez was the attending physician who supervised the care of this patient. Isabella Clark DO ATTENDING ATTESTATION I have seen and examined this patient on the 10/29/2023 visit. I have discussed the patient's management with the provider listed above and agree with the note, findings, and plan of care. documented in this encounter Miscellaneous Notes * Ancillary Progress Note - Bina Catherine MSW - 11/07/2023 11:35 AM EDT CARE MANAGEMENT - TRAUMA DISCHARGE NOTE [facility] [address] Name: Cherelle Hammond Location: [facility] B525/[id number] Date: 11/07/2023 Time: 11:36 AM The following coordination of care and discharge plan has been coordinated with the care team, patient, family and/or caregiver according to the patients needs and preferences. Discharge Discharge Second Notice Important Message from Medicare delivered: Yes (11/07/231133) Date Delivered: 11/07/23 (11/07/231133) Retain copy in EHR: Yes (11/07/231133) Was Caregiver/Family/Facility contacted regarding discharge: Yes (11/07/231133) Discharge Transportation: Family/Friends drive (11/07/231133) Date of scheduled discharge transportation: 11/07/23 (11/07/231133) Time of scheduled discharge transportation: 1400 (11/07/231133) Patient declined post-hospital transition of care recommendation: N/A (11/07/231133) Final Discharge Plan (Complete only at time of Discharge): SNF (11/07/23 1135) Destination - Admitted Since 10/29/2023 Service Provider Selected Services Address Phone Fax Patient Preferred Last Updated [facility] [address] [place] [address] [phone] -- Bina Catherine MSW 11/07/2023 1133 Internal Comment last updated by Lorene Pozo OSA 11/03/2023 1517 11/01 - spoke to admissions - Adarsh - she will review her notes and return call. - SL - 11/02 - spoke to admissions, Philipbibi - [phone] ext. - earliest availability would be Monday for admission but can't offer for sure until they see how patient does over the weekend. - Adarsh spoke to Ashley Shipley. - Narrative: Pt to DC to the above SNF. Pt's transport to be provided by family. Discharge destination time-out called during BOOST rounds, all parties agreeable with transition plan of care. SNF is approved. Start date is 11/06 and NRD 11/08. ref # is [id number]. Clinicals can be faxed to [phone] * Care Plan - Tevin Delarosa RN - 11/07/2023 10:35 AM EDT Clinical Goal(s): Safety (11/07/23 0700) Possible barriers to meeting goal(s)/advancing plan of care: Pt condition. Stability of the patient: Moderately stable - low risk of patient condition declining or worsening Summary regarding today's goal(s): Met: Pt remained safe Recommendations: Continue POC * Care Plan - Vince Butler RN - 11/07/2023 3:10 AM EDT Clinical Goal(s): Patient will remain free from fall/injury this shift. (11/06/231999) Possible barriers to meeting goal(s)/advancing plan of care: Patient condition. Stability of the patient: Moderately stable - low risk of patient condition declining or worsening Summary regarding today's goal(s): Met: Patient remained free from fall/injury. Recommendations: Continue with hourly rounding, keep call boggs within reach, and bed alarms on. * Ancillary Progress Note - Bina Catherine MSW - 11/06/2023 12:32 PM EDT CARE MANAGEMENT - TRAUMA TRANSITION NOTE [facility] [address] Name: Cherelle Hammond Location: [facility] B525/A Date: 11/06/2023 Time: 12:33 PM Risk Stratification Risk Stratification Psycho Social / Medical Concerns Identified: Adjustment to illness/injury (10/30/23 1000) Accessed [employer] to connect patients to social care resources: No (10/30/23 1000) OBRA or OPTIONS needed for placement: No (10/30/23 1000) Readmission Risk Score: 10.44 (11/06/23 1201) AM-PAC Score With Stairs : 13 (11/06/23 1105) Caregiver Information Patient Contacts Name Relation Home Work Mobile Grant Hammond Adult Child [phone] Transition of Care Checklist Narrative: Pt discussed in BOOST. Pt medically stable for DC, pending bed offer and insurance auth.Informed by Adarsh at [facility] that they can offer pt a bed. Pt and pt's son provided update at bedside, pt's insurance authorization submitted with below information: Patient Name: Cherelle Hammond Patient Hospital the patient is in: [facility] Accepting Facility Name: [facility] Facility Address/Phone #: [phone] [place] [address], Accepting Provider Accepting Provider Name/Address/Phone#: Dr. Mark cochran, [address] [place] [address], Diagnosis Code: [id number] Estimated Date of D/C: 11/05 Reason for SNF/rehab: PT/OT Mobility: [facility] Anticipated Transportation at Discharge: Family Comments: -- Patient/Family Expectations: [facility] Transition Planning Transition Planning Transition Plan/Considerations: Needs uncertain at this time - Continue monitoring for needs (10/30/23 1000) Additional Considerations: -- Care Management will continue to monitor and assist with discharge planning needs * Care Plan - Tevin Delarosa RN - 11/06/2023 11:50 AM EDT Clinical Goal(s): Pt will be free from falls/injuries for day shift. (11/06/23 0700) Possible barriers to meeting goal(s)/advancing plan of care: Pt condition. Stability of the patient: Moderately stable - low risk of patient condition declining or worsening Summary regarding today's goal(s): Met: Pt was free from falls/injuries for day shift. Recommendations: Continue hourly rounds and maintain fall precautions. * Ancillary Progress Note - Karma Blake PTA - 11/06/2023 11:10 AM EDT PROGRESS NOTE - Physical Therapy [facility]-[address] [address] Name: Cherelle Hammond Location: [facility] B525/A Date: 11/06/2023 Time: 11:10 AM Cherelle Hammond is a/an 83 year old female. Patient Status: Inpatient Insurance: Payor: [facility]ANTAGE Plan: [facility] MDC ADV PPO Product Type: *No Product type* Patient Seen: at bedside, nursing cleared patient for therapy Patient Identified By: Name, ID Band and Date Diagnosis: s/p fall with SDH (11/06/23 110) Status of treatment: Treatment completed (11/06/23 110) Orders: PT evaluation and treatment (11/06/23 110) Weight Bearing Status: Weight bearing as tolerated (11/06/23 110) Precautions: Alarms;Falls;Safety (11/06/23 110) Total Treatment Time--free text: 15 (11/06/231104) Subjective: Patient pleasant and agreeable. Pain: No complaints of pain. P.T. Bed Mobility Supine-Sit: Minimal Assistance (11/06/231104) Transfers Sit-Stand: Moderate Assistance (11/06/231104) Stand-Sit: Moderate Assistance (11/06/231104) Ambulation: Distance ambulated (feet): 5 (bed to chair) Assistive Device: Rolling walker Assist: Moderate Assistance Balance Sit (Static): Fair (11/06/231104) Sit (Dynamic): Fair (- to poor+) (11/06/231104) Stand (Static): Poor (+) (11/06/231104) Stand (Dynamic): Poor (11/06/231104) Patient and or Family Goal(s): to get well and to return home Topic of Education: Safety with mobility, Goals/plan of care, and Use of assistive device Method of Education: Verbal discussion and explanation provided to patient: demonstrated the exercise and or task Treatment Provided: Therapeutic Activities 15 minutes: bed mobility training transfer training Alarm Status Patient positioned in: Chair (11/06/231104) With: Pressure pad alarm intact and functioning and call boggs in reach (11/06/231104) Following session patient seated OOB in chair with chair alarm activated and cord plugged into callbell system. Patient Education Review of Precautions: Safety;Fall (11/06/231104) Safety Awareness: Patient does not verbalize insight of current deficits;Needs cueing supervision (11/06/231104) Preferred learning method: Combination (11/06/231104) Barriers to learning: Medical Status (11/06/231104) Method of Education: Verbalized to patient (11/06/231104) Assessment: Patient pleasant and agreeable to therapy, supine upon arrival, motivated to participate. Bed mobility completed with minimal assist for supine to sit. Emphasis on balance and endurance at edge of bed. Patient's sitting balance at edge of bed maintained with supervision to minimal assist due to R lateral and posterior lean. Sit to stands completed with moderate assist to rise to rolling walker. Ambulation completed with rolling walker, patient ambulated 5 feet. Patient demonstrates R lateral and posterior lean. Verbal cues during transfer to improve technique and independence. Overall, patient tolerated fair. Patient seated in chair upon end of treatment session, positioned withpillows for comfort and to maintain skin integrity. Call boggs in reach and chair alarm on, all needs met. Please consider post-acute care services which may include home health, custodial, outpatient therapy or inpatient rehabilitation. The level of care will be determined in collaboration with patient, family/caregiver and care team members. Deficits requiring P.T. treatment needs: Mobility;Safety;Balance;Endurance;Weakness;Lower extremitystrength (11/06/23 1105) Equipment needs: (tbd) (10/31/23 0945) Plan: Continue with current treatment plan established on evaluation. AM PAC Score with Stairs: 13 A portion of this AM-PAC assessment not scored based on functional assessment; rather clinical decision making utilized based on current findings and/or prior level of function. Please refer to future AM-PAC calculations of functional ability as they become available. * Ancillary Progress Note - Rola Gardner COTA - 11/06/2023 11:10 AM EDT PROGRESS NOTE - Occupational Therapy [facility]-[address] [address] Name: Cherelle Hammond Location: [facility] B525/A Date: 11/06/2023 Time: 11:10 AM Cherelle Hammond is a 83 year old female. Patient Status: Inpatient Insurance: Payor: [facility] Plan: [facility] MDC ADV PPO Product Type: *No Product type* Patient Seen: at bedside, nursing cleared patient for therapy Patient Identified By: Name, ID Band and Date Diagnosis: s/p Fall with SDH and rib fractures (11/06/231041) Status of treatment: Treatment completed (11/06/231041) Orders: OT evaluation and treatment (11/06/231041) Weight Bearing Status: Weight bearing as tolerated (11/06/23 104) Precautions: Alarms;Falls;Safety (11/06/23 104) Total Treatment Time: 18 (11/06/231041) Pain: No complaints of pain Current Functional Status: Activities of Daily Living: Self Care Grooming: Supervision (Please comment) (11/06/231041) Dressing Upper Body: Minimal Assistance (doff/ don gown; Maximal Assistance don robe) (11/06/231041) Lower Body: Supervision (Please comment) (doff slipper socks; Maximal Assistance don slipper socks)(11/06/231041) Functional Ambulation Assistive Device: Rolling walker (11/06/231041) Level of Assistance: Moderate Assistance (11/06/231041) Bed Mobility Supine-Sit: Minimal Assistance (11/06/231041) OT Transfers Sit-Stand: Moderate Assistance (11/06/231041) Stand-Sit: Moderate Assistance (11/06/231041) Bed-Chair: Moderate Assistance (11/06/231041) Balance Sit (Static): Fair (11/06/231041) Sit (Dynamic): (Fair- to Poor+) (11/06/231041) Stand (Static): (Poor+) (11/06/231041) Stand (Dynamic): Poor (11/06/231041) Alarm Status Patient positioned in: Chair (11/06/231041) With: Pressure pad alarm intact and functioning and call boggs in reach (11/06/231041) Following session patient seated OOB in chair with chair alarm activated and cord plugged into callbell system. Treatment Provided: Self Skilled Nursing Management Trainin minutes Assessment: Supine in bed upon entering room. Patient required assistance of 1 with supine to sit edge of bed. Patient demonstrates sitting edge of bed supervision level to occasional moderate assistance secondary to multiple posterior loss of balance. Patient demonstrates grooming and doffing slipper socks supervision level set up. Patient required assistance with upper and lower body dressing seated at edge of bed. Patient performed functional transfers and ambulation with assistance of 1 using rolling walker. Patient noted to have a left lateral lean with functional transfers and ambulation. Patient would benefit from continued OT services to maximize functional independence. Please consider post-acute care services which may include home health, custodial, outpatient therapy or inpatient rehabilitation. The level of care will be determined in collaboration with patient, family/caregiver and care team members. Plan: Will continue to follow as per plan. Anticipated Frequency (on eval): 3 to 5 times per week (11/06/231041) AM-PAC Help From Another Person Eating Meals: A little (11/06/231041) Help From Another Person Taking Care of Personal Grooming: A little (11/06/231041) Help From Another Person To Put On/Take Off Upper Body Clothing: A little (11/06/231041) Help From Another Person To Put On/Take Off Lower Body Clothing: A lot (11/06/231041) Help From Another Person Toileting: A lot (11/06/231041) Help From Another Person Bathing: A lot (11/06/231041) OT AM-PAC Score: 15 (11/06/231041) OT AM-PAC t-Scale Score: 34.69 (11/06/231041) A portion of this AM-PAC assessment not scored based on functional assessment; rather clinical decision making utilized based on current findings and/or prior level of function. Please refer to future AM-PAC calculations of functional ability as they become available. * Care Plan - Puja Gonzalez LPN - 11/05/2023 7:38 PM EDT Clinical Goal(s): pt will remain free of falls/injury this shift. (11/05/23 0700) Possible barriers to meeting goal(s)/advancing plan of care: pt condition Stability of the patient: Moderately stable - low risk of patient condition declining or worsening Summary regarding today's goal(s): Met: pt remained free of falls/injury this shift. Recommendations: hourly rounds & safety checks. Bed/chair alarms on and functioning. Call boggs within reach. * Care Plan - Julia Morales RN - 11/05/2023 5:18 AM EDT Clinical Goal(s): Pt will remain free from injury/falls this shift (11/04/23 2300) Possible barriers to meeting goal(s)/advancing plan of care: Pt condition Stability of the patient: Moderately stable - low risk of patient condition declining or worsening Summary regarding today's goal(s): Met: Pt remained free from injury/falls this shift Recommendations: Frequent safety assessments with hourly rounds; continue all fall precautions * Care Plan - Puja Gonzalez LPN - 11/04/2023 3:38 PM EDT Clinical Goal(s): pt will remain free of falls/injury this shift. (11/04/23 0700) Possible barriers to meeting goal(s)/advancing plan of care: pt condition Stability of the patient: Moderately stable - low risk of patient condition declining or worsening Summary regarding today's goal(s): Met: pt remained free of falls/injury this shift. Recommendations: hourly rounds & safety checks completed this shift. Bed alarm on and functioning. * Care Plan - Ngoc Saha RN - 11/04/2023 6:57 AM EDT Clinical Goal(s): Pt will remain free from fall/injury this shift. (11/03/23 2300) Possible barriers to meeting goal(s)/advancing plan of care: Pt's condition Stability of the patient: Moderately stable - low risk of patient condition declining or worsening Summary regarding today's goal(s): Met: Pt remained free from fall/injury this shift Recommendations: Continue safety rounds and fall precautions. * Ancillary Progress Note - Ashley Shipley RN - 11/03/2023 3:04 PM EDT CARE MANAGEMENT - ADULT TRANSITION NOTE [facility]-[address] [address] Name: Cherelle Hammond Location: [facility] B525/A Date: 11/03/2023 Time: 3:04 PM Risk Stratification Risk Stratification Psycho Social / Medical Concerns Identified: Adjustment to illness/injury (10/30/23 1000) Accessed [employer] to connect patients to social care resources: No (10/30/23 1000) OBRA or OPTIONS needed for placement: No (10/30/23 1000) Readmission Risk Score: 11.47 (11/03/23 1201) AM-PAC Score With Stairs : 13 (11/03/23 0800) Caregiver Information Patient Contacts Name Relation Home Work Mobile Grant Hammond Adult Child [phone] Transition of Care Checklist Narrative: spoke with Caroline at [facility]. She will have a bed available Monday. She would like to see how the patient does over the weekend as she has concerns regarding patient going home alone after Rehab stay. She will follow over the and reach out on Monday to discuss patient. Will continue to follow for discharge path, needs, and planning. Anticipated Transportation at Discharge: [facility] Patient/Family Expectations: SNf Transition Planning Transition Planning Transition Plan/Considerations: Needs uncertain at this time - Continue monitoring for needs (10/30/23999) Additional Considerations: Care Management will continue to monitor and assist with discharge planning needs * Ancillary Progress Note - Carine Garcia MSW - 11/03/2023 2:49 PM EDT CARE MANAGEMENT - TRAUMA TRANSITION NOTE [facility]-[address] [address] Name: Cherelle Hammond Location: [facility] B525/A Date: 11/03/2023 Time: 2:49 PM Risk Stratification Risk Stratification Psycho Social / Medical Concerns Identified: Adjustment to illness/injury (10/30/23 1000) Accessed [employer] to connect patients to social care resources: No (10/30/23 1000) OBRA or OPTIONS needed for placement: No (10/30/23 1000) Readmission Risk Score: 11.47 (11/03/23 1201) AM-PAC Score With Stairs : 13 (11/03/23 0800) Caregiver Information Patient Contacts Name Relation Home Work Mobile Grant Hammond Adult Child [phone] Transition of Care Checklist Narrative: SW called and spoke to [facility] who is reviewing the pt. VM left for [facility]. Sw asked ALANNA Paulson to please follow up with these referrals. Anticipated Transportation at Discharge: BLS Comments: Patient/Family Expectations: SNF Transition Planning Transition Planning Transition Plan/Considerations: Needs uncertain at this time - Continue monitoring for needs (10/30/23 1000) Additional Considerations: Care Management will continue to monitor and assist with discharge planning needs * Care Plan - Tevin Delarosa RN - 11/03/2023 11:30 AM EDT Clinical Goal(s): Pt will remain free from falls/injuries for day shift. (11/03/23 0700) Possible barriers to meeting goal(s)/advancing plan of care: Pt condition. Stability of the patient: Moderately stable - low risk of patient condition declining or worsening Summary regarding today's goal(s): Met: Pt remained free from falls/injuries for day shift. Recommendations: Continue hourly rounds and maintain fall precautions. * Care Plan - Lizy Meyer RN - 11/03/2023 4:26 AM EDT Clinical Goal(s): maintain safety and comfort (11/02/23 2300) Possible barriers to meeting goal(s)/advancing plan of care: per diagnosis Stability of the patient: Moderately stable - low risk of patient condition declining or worsening Summary regarding today's goal(s): Met: safety and comfort maintained Recommendations: hourly rounding, ADL assisting * Ancillary Progress Note - Carine Garcia MSW - 11/02/2023 3:35 PM EDT CARE MANAGEMENT - TRAUMA TRANSITION NOTE [facility]-[address] [address] Name: Cherelle Hammond Location: [place] [address]/A Date: 11/02/2023 Time: 3:35 PM Risk Stratification Risk Stratification Psycho Social / Medical Concerns Identified: Adjustment to illness/injury (10/30/23 1000) Accessed [employer] to connect patients to social care resources: No (10/30/23 1000) OBRA or OPTIONS needed for placement: No (10/30/23 1000) Readmission Risk Score: 10.92 (11/02/23 1201) AM-PAC Score With Stairs : 13 (11/02/23 1130) Caregiver Information Patient Contacts Name Relation Home Work Mobile Grant Hammond Adult Child [phone] Transition of Care Checklist Narrative: Waiting on final ID recs. Sw asked ALANNA Paulson to follow up with SNF's to see if they can offer a bed. SW will continue to follow, address pt's evolving needs, and provide psychosocial support. Anticipated Transportation at Discharge: BLS Comments: Patient/Family Expectations: SNF Transition Planning Transition Planning Transition Plan/Considerations: Needs uncertain at this time - Continue monitoring for needs (10/30/23 1000) Additional Considerations: Care Management will continue to monitor and assist with discharge planning needs * Ancillary Progress Note - Rola Gardner COTA - 11/02/2023 11:46 AM EDT PROGRESS NOTE - Occupational Therapy [facility]-[address] [address] Name: Cherelle Hammond Location: [facility] B525/A Date: 11/02/2023 Time: 11:46 AM Cherelle Hammond is a 83 year old female. Patient Status: Inpatient Insurance: Payor: [facility] Plan: [facility] MDC ADV PPO Product Type: *No Product type* Patient Seen: at bedside, nursing cleared patient for therapy Patient Identified By: Name, ID Band and Date Diagnosis: s/p Fall with SDH and rib fractures (11/02/23 1142) Status of treatment: Treatment completed (11/02/23 1142) Orders: OT evaluation and treatment (11/02/23 1142) Weight Bearing Status: Weight bearing as tolerated (11/02/23 114) Precautions: Alarms;Falls;Safety (11/02/231141) Total Treatment Time: 18 (11/02/231141) Pain: No complaints of pain Current Functional Status: Activities of Daily Living: Self Care Grooming: Supervision (Please comment) (11/02/231141) Dressing Upper Body: Minimal Assistance (11/02/231141) Lower Body: Maximal Assistance (11/02/231141) Functional Ambulation Assistive Device: Rolling walker (11/02/231141) Level of Assistance: Moderate Assistance (11/02/231141) Bed Mobility Supine-Sit: Supervision (Please comment) (with head of bed elevated and cues provided) (11/02/231141) OT Transfers Sit-Stand: Minimal Assistance (of 2) (11/02/231141) Stand-Sit: Moderate Assistance (11/02/231141) Bed-Chair: Moderate Assistance (11/02/231141) Balance Sit (Static): Fair (11/02/231141) Sit (Dynamic): (Fair to Poor+ secondary to loss of balance) (11/02/231141) Stand (Static): (Poor+) (11/02/231141) Stand (Dynamic): Poor (11/02/231141) Alarm Status Patient positioned in: Chair (11/02/231141) With: Pressure pad alarm intact and functioning and call boggs in reach (11/02/231141) Following session patient seated OOB in chair with chair alarm activated and cord plugged into callbell system. Treatment Provided: Self Skilled Nursing Management Trainin minutes Deficits requiring O.T. treatment needs: ADL/self- care;Endurance;Balance;Functional mobility;Safety;Upper extremity strength;Weakness;Functional cognition (10/31/23 0945) Assessment: Supine in bed upon entering room. Patient demonstrates supine to sit edge of bed supervision level with head of bed elevated with increased time and verbal cues provided. Patient demonstrates grooming supervision level set up. Patient required assistance with doffing and donning gown seated at edge of bed secondary to multiple posterior left loss of balance. Patient demonstrates functional transfers from low bed surface with minimal assistance of 2. Patient performed remaining functional transfers and ambulation with assistance of 1 using rolling walker. Patient noted to be extremely emotional labile throughout session. Patient would benefit from continued OT services to maximize functional independence. Please consider post-acute care services which may include home health, custodial, outpatient therapy or inpatient rehabilitation. The level of care will be determinedin collaboration with patient, family/caregiver and care team members. Plan: Will continue to follow as per plan. Anticipated Frequency (on eval): 3 to 5 times per week (11/02/231141) AM-PAC Help From Another Person Eating Meals: A little (11/02/231141) Help From Another Person Taking Care of Personal Grooming: A little (11/02/231141) Help From Another Person To Put On/Take Off Upper Body Clothing: A little (11/02/231141) Help From Another Person To Put On/Take Off Lower Body Clothing: Total (11/02/231141) Help From Another Person Toileting: A lot (11/02/231141) Help From Another Person Bathing: A lot (11/02/231141) OT AM-PAC Score: 14 (11/02/231141) OT AM-PAC t-Scale Score: 33.39 (11/02/231141) A portion of this AM-PAC assessment not scored based on functional assessment; rather clinical decision making utilized based on current findings and/or prior level of function. Please refer to future AM-PAC calculations of functional ability as they become available. * Ancillary Progress Note - Mane Mccormick PTA - 11/02/2023 11:30 AM EDT PROGRESS NOTE - Physical Therapy [facility]-[address] [address] Name: Cherelle Hammond Location: [facility] B525/A Date: 11/02/2023 Time: 11:30 AM Cherelle Hammond is a/an 83 year old female. Patient Status: Inpatient Insurance: Payor: [facility] Plan: [facility] MDC ADV PPO Product Type: *No Product type* Patient Seen: at bedside, nursing cleared patient for therapy Patient Identified By: Name, ID Band and Date Diagnosis: s/p fall with SDH (11/02/231129) Status of treatment: Treatment completed (11/02/231129) Orders: PT evaluation and treatment;OOB (11/02/231129) Weight Bearing Status: Weight bearing as tolerated (11/02/231129) Precautions: Alarms;Falls;Safety (11/02/231129) Total Treatment Time--free text: 18 (11/02/231129) Subjective: "Can I go home today." Pain: No complaints of pain P.T. Bed Mobility Supine-Sit: Supervision (with additional time and cues) (11/02/231129) Transfers Sit-Stand: Minimal Assistance (x2) (11/02/231129) Stand-Sit: Minimal Assistance (11/02/231129) W/C-Bed/Mat: Moderate Assistance (with Rolling Walker) (11/02/231129) Ambulation: Distance ambulated (feet): 5 Assistive Device: Rolling walker Assist: Moderate Assistance Balance Sit (Static): Fair (11/02/231129) Sit (Dynamic): (Poor+) (11/02/231129) Stand (Static): (Poor+) (11/02/231129) Stand (Dynamic): Poor (11/02/231129) Patient and or Family Goal(s): to return home Topic of Education: Safety with mobility, Use of assistive device, and Fall prevention Method of Education: Verbal discussion and explanation provided to patient: verbalized understanding and or agreement of this information Treatment Provided: Therapeutic Activities 13 minutes: bed mobility training transfer training Gait Training 5 minutes: gait training with rolling walker Alarm Status Patient positioned in: Chair (11/02/231129) With: Pressure pad alarm intact and functioning and call boggs in reach (11/02/231129) Patient Education Review of Precautions: Safety;Fall (11/02/231129) Safety Awareness: Patient does not verbalize insight of current deficits;Needs cueing supervision (11/02/231129) Preferred learning method: Combination (11/02/231129) Barriers to learning: Medical Status (11/02/231129) Method of Education: Verbalized to patient (09/26/24 1130) Assessment: Patient found supine in bed, awake and alert on arrival. Patient was able to transitionfrom supine to sit with Supervision (with cues and extra time) but needed occasional assistance to maintain her sitting balance on the edge of the bed. Patient stood with Minimal Assistance x2 beforeambulating 5' using a Rolling Walker with Moderate Assistance (for balance and Rolling Walker contro l). Patient was quite fearful of falling and was emotional throughout the session. Patient was positioned for comfort in bedside chair, alarm activated and call boggs within reach. Please consider post-acute care services which may include home health, custodial, outpatient therapy or inpatient rehabilitation. The level of care will be determined in collaboration with patient, family/caregiver and care team members. Deficits requiring P.T. treatment needs: Safety;Mobility;Balance;Weakness;Endurance;Lower extremitystrength (11/02/23 1130) Equipment needs: (tbd) (10/31/23 0945) Plan: Continue with current treatment plan established on evaluation. AM PAC Score with Stairs: 13. A portion of this AM-PAC assessment not scored based on functional assessment; rather clinical decision making utilized based on current findings and/or prior level of function. Please refer to future AM- PAC calculations of functional ability as they become available. * Care Plan - Tevin Delarosa RN - 11/02/2023 10:44 AM EDT Clinical Goal(s): Pt will remain free from falls/injuries for day shift. (11/02/23 0700) Possible barriers to meeting goal(s)/advancing plan of care: Pt condition. Stability of the patient: Moderately stable - low risk of patient condition declining or worsening Summary regarding today's goal(s): Met: Pt remained free from falls/injuries for day shift. Recommendations: Continue hourly rounds and maintain fall precautions. * Care Plan - Lizy Meyer RN - 11/02/2023 4:45 AM EDT Clinical Goal(s): Patient will remain free from fall/injury this shift. (11/01/231999) Possible barriers to meeting goal(s)/advancing plan of care: mobility and pain Stability of the patient: Moderately stable - low risk of patient condition declining or worsening Summary regarding today's goal(s): Met: no fall, comfort maintained Recommendations: hourly rounding, frequent turn and maintain comfort * Care Plan - Ness Quiles RN - 11/01/2023 6:06 PM EDT Clinical Goal(s): pt will remain free from fall/injury this shift. (11/01/23 0700) Possible barriers to meeting goal(s)/advancing plan of care: patient condition Stability of the patient: Moderately stable - low risk of patient condition declining or worsening Summary regarding today's goal(s): Met: patient remained free from fall/injury this shift. Recommendations: continue to implement hourly rounds and safety checks. * Ancillary Progress Note - Ashley Shipley RN - 11/01/2023 2:43 PM EDT CARE MANAGEMENT - ADULT TRANSITION NOTE [facility] [address] Name: Cherelle Hammond Location: [facility] B525/A Date: 11/01/2023 Time: 2:43 PM Risk Stratification Risk Stratification Psycho Social / Medical Concerns Identified: Adjustment to illness/injury (10/30/23 1000) Accessed Neighborly to connect patients to social care resources: No (10/30/23 1000) OBRA or OPTIONS needed for placement: No (10/30/23 1000) Readmission Risk Score: 11.97 (11/01/23 1201) AM-PAC Score With Stairs : 13 (10/31/231999) Caregiver Information Patient Contacts Name Relation Home Work Mobile Grant Hammond Adult Child [phone] Transition of Care Checklist Narrative: Per primary care in IDTs, patient medically stable for discharge. Spoke with Shellie at [facility] - no beds - may have 1 next week Spoke with Margi at [facility] - she is still reviewing and will call with determination. Will continue to follow for discharge path, needs, and planning. Anticipated Transportation at Discharge: tbd Patient/Family Expectations: SNF Transition Planning Transition Planning Transition Plan/Considerations: Needs uncertain at this time - Continue monitoring for needs (10/30/23 1000) Additional Considerations: Care Management will continue to monitor and assist with discharge planning needs * Care Plan - David Fall RN - 11/01/2023 5:03 AM EDT Clinical Goal(s): Pt will remain free from falls/injury this shift (10/31/23 2300) Possible barriers to meeting goal(s)/advancing plan of care: Pt condition Stability of the patient: Moderately stable - low risk of patient condition declining or worsening Summary regarding today's goal(s): Met: Pt remained free from falls/injury this shift Recommendations: Continue fall precautions * Care Plan - Ness Quiles RN - 10/31/2023 4:20 PM EDT Clinical Goal(s): pt will remain free from fall/injury this shift. (10/31/23 1500) Possible barriers to meeting goal(s)/advancing plan of care: patient condition Stability of the patient: Moderately stable - low risk of patient condition declining or worsening Summary regarding today's goal(s): Met: patient remained free from fall/injury this shift. Recommendations: continue to implement hourly rounds and safety checks. * Ancillary Progress Note - Bina Catherine MSW - 10/31/2023 1:36 PM EDT CARE MANAGEMENT - TRAUMA TRANSITION NOTE [facility] [address] Name: Cherelle Hammond Location: [facility] G510/A Date: 10/31/2023 Time: 1:36 PM Risk Stratification Risk Stratification Psycho Social / Medical Concerns Identified: Adjustment to illness/injury (10/30/23 1000) Accessed Neighborly to connect patients to social care resources: No (10/30/23 1000) OBRA or OPTIONS needed for placement: No (10/30/23 1000) Readmission Risk Score: 10.83 (10/31/23 1201) AM-PAC Score With Stairs : 13 (10/31/23 0945) Caregiver Information Patient Contacts Name Relation Home Work Mobile Grant Hammond Adult Child [phone] Transition of Care Checklist Narrative: Pt discussed with trauma service. Pt not medically stable for DC, CM followed up with pending referrals to [facility] and [facility]. Both facilities are currently reviewing pt. CM to continue to follow. Anticipated Transportation at Discharge: S Comments: -- Patient/Family Expectations: SNF Transition Planning Transition Planning Transition Plan/Considerations: Needs uncertain at this time - Continue monitoring for needs (10/30/23 1000) Additional Considerations: -- Care Management will continue to monitor and assist with discharge planning needs * Ancillary Progress Note - Valencia Stewart RDN - 10/31/2023 9:45 AM EDT CLINICAL NUTRITION ADULT RISK ASSESSMENT [facility] [address] Name: Cherelle Hammond Location: [facility] G510/A Date: 10/31/2023 Time: 9:45 AM How patient was identified (select 2): Wristband and Name Cherelle Hammond is a 83 year old female being assessed for clinical nutrition risk related to trauma Primary diagnosis: Admitted after fall Other pertinent information: patient seen 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 Denied any decline in her normal intake. Patient did confirm recent hospitalization for ischemic colitis but denies impact to her intake. Drinks Ensure daily at home. Weight stable per weight hx on file. Anthropometrics Measurements Admission weight (for dietitians): 61 kg Height: 160 cm (5' 3") (10/29/23 1830) Weight: 61.4 kg (135 lb 5.8 oz) (10/31/23 0600) BMI: 24.22 (10/29/23 1830) Usual Body Weight: 63-61kg per EHR Diet History: Previously followed diet: Regular Food Allergies/Intolerances: Red Dyes Current Diet/Supplements: Diet: Regular Oral Nutrition Supplement (ONS): none Pertinent medications/vitamins/minerals/supplements: Pepcid, melatonin, zosyn RISK FACTORS: Adult Energy Intake: No significant decrease Interpretation of Weight Change: No recent/significant weight change Skin: Intact-Red area R heel NUTRITION RISK CATEGORY: Nutrition Risk Category: Low/Moderate (0-1 factors) Clinical Nutrition Recommendations: Diet: Continue current nutrition plan NUTRITION INTERVENTION/PLAN: Orders: Oral nutrition supplement added Boost (1 cup provides 240 calories, 10 grams protein, 37 grams carbohydrate) daily Will follow and adjust nutritional plan as medical condition requires. Please contact for change(s)in patient condition requiring earlier intervention. Valencia MITCHELL [facility] Clinical Nutrition Services [place] Text / x [phone] * Ancillary Progress Note - Milly Bee RN - 10/30/2023 3:17 PM EDT Injured Trauma Survivor Screen (ITSS) BEFORE THIS INJURY Have you ever taken medication for, or been given a mental health diagnosis? PTSD:N/A DEP: No- 0 Has there ever been a time in your life you have been bothered by feeling down or hopeless or lost all interest in the things you usually enjoyed for more than 2 weeks? PTSD: N/A DEP: No- 0 WHEN YOU WERE INJURED OR RIGHT AFTERWARD 3. Did you think you were going to ? PTSD: No- 0 DEP: No- 0 4. Do you think this was done to you intentionally? PTSD: No- 0, DEP: N/A SINCE YOUR INJURY 5. Have you felt emotionally detached from your loved ones? PTSD: N/A, DEP No- 0 6. Do you find yourself crying and unsure why? PTSD: N/A, DEP No- 0 7. Have you felt more restless, tense or jumpy than usual? PTSD: No- 0, DEP: N/A 8. Have you found yourself unable to stop worrying? PTSD: No- 0, DEP: N/A 9. Do you find yourself thinking that the world is unsafe and that people are not to be trusted? PTSD No- 0 DEP: N/A TOTAL SCORE: PTSD: 0, DEP 0 Score > or = 2 in PTSD category is positive for PTSD risk (place psychology consult for Dr Mckeon indicating + ITSS) Score > or = 2 in DEP category is positive for Depression Risk (check with Dr Mckeon to see if aconsult is needed) Milly Bee RN, BSN, TCRN, CCRN-K Trauma Corporate Concierge [facility] 10/30/2023 3:18 PM * Ancillary Progress Note - Milly Bee RN - 10/30/2023 3:16 PM EDT SBIRT NOTE Was screening able to be completed? Yes If unable to be completed, why? n/a S (screening) [facility] Substance Abuse Screening Tool (Any "yes" answer indicates a positive screen) C Have you ever felt the need to Cut down on your drinking or drug use? No A Have people Annoyed you by criticizing your drinking or drug use? No G Have you ever felt Guilty about drinking or drug use? No E Have you ever felt you needed a drink or used drugs first thing in the morning to steady your nerves or to get rid of a hangover (Eye-Regional Administrative Assistant)? No BI (brief intervention) to be done on all patients: I have reviewed both ETOH/ Urine Tox screen with patient and discussed the results as well. After reviewing the results patient admits they they do or do not feel their drinking &/or druguse interferes with their life/goals for the future. Do Not Patient does or does not want to be referred to treatment at this time. Does not RT (referral for treatment) to be done if BI and/or screening +, or any concerns/issues arose whilespeaking with patient (pamphlet for area services given to all pts no matter what): Not referred (reason why no concerns during initial screening nor brief intervention at this time) Milly Bee RN, BSN, TCRN, CCRN-K Trauma Corporate Concierge [facility] 10/30/2023 3:17 PM * Ancillary Progress Note - Milly Bee RN - 10/30/2023 3:15 PM EDT NURSING PROGRESS NOTE - Rehabilitation Review - Trauma Surgery [address] [address] Name: Cherelle Hammond [address] Date: 10/30/2023 Time: 3:15 PM ADULT REHABILITATION REVIEW Chart reviewed according to [place] [employer] guidelines. Case discussed in trauma rounds. Mechanism of Injury: s/p fall at home. Injuries consistant with mechanism. Neurosurgeryconsulted. Occupation: retired. Injury prevention: discussed with patient at bedside. Rehabilitation needs assessed. Rehabilitation Medicine: N/A Trauma Psychology: N/A Alcohol/Chemical Dependency: yes -- SBIRT done Social Work: yes -- Alex SOUZA following as needed Physical Therapy: yes -- consult placed Speech Pathology: yes -- consult placed Occupational Therapy: yes -- consult placed Class C Driver Services: yes -- following as needed Patient lives at home alone but son is next door. Will follow for needs. Milly Bee RN, BSN, TCRN, CCRN-K Trauma Corporate Concierge [facility] 10/30/2023 3:16 PM * Ancillary Progress Note - Bina Catherine MSW - 10/30/2023 2:32 PM EDT POST ACUTE CARE CARE MANAGEMENT [address] [address] Name: Cherelle Hammond Location: [facility] G510/A Date: 10/30/2023 Time: 2:32 PM Post-Acute Care Patient General Information Living Quarters: House (10/30/23 1000) How many stories is the dwelling?: One Story (10/30/23 1000) Number of steps to enter living quarters:: 0 (10/30/23999) Location of bathroom(s): All floors or Single story dwelling (10/30/23 1000) Do you have serious difficulty walking or climbing stairs? (5 years old or older): No (10/29/232021) History of falling: Yes (10/30/23799) What was your living situation prior to admission/observation?: Independently (10/29/232021) Do you have any children, pets, or other dependents that you are currently caring for?: No (10/29/232021) AM-PAC Score With Stairs : 8 (10/30/23799) Post-Acute Care with AM-PAC < 17.99 Rehab diagnosis: Does not meet criteria (10/30/231431) [facility] (SNF) Guidelines For Medical Approval (must select both): Care must be provided by an RN/CNA INSTRUCTOR and cannot be managed at home;Care requires observation, monitoring and evaluation of effectiveness on a daily basis (10/30/231431) SNF guidelines for Rehab Approval (All selections required): Able to participate for at least 1 hour of therapy per day;Services required only able to be provided in an inpatient setting;Established rehabilitative progress;Requires intense care planning with realistic goals as identified by 1 of the following;One or more therapy modalities (PT/OT/ST) at least 5 times a week;Frequent monitoring and or revision of treatment plan;Requries Training (select at least one);Frequent re-assessment of established rehabilitative progress (10/30/231431) Therapy Modalities: Physical Therapy;Occupational Therapy (10/30/231431) Intense Care Plan Goals: Completion of home evaluation, assistance with home modifications;Assistance with application for community services;Coordination of multiple community services;Family medication and/or transfer training (10/30/231431) SNF Required Training: Transfer Training;ADL training, with or without adaptive equipment;Gait training (10/30/231431) Approved for [facility]: Approved for [facility] (10/30/231431) Received call from pt's son, Grant, provides that they would be interested in SNF stay for STR at the time of DC. Pt's son requesting referral to [facility] and repisodic list sent in the event additional choices are needed. * Ancillary Progress Note - Caroline Freedman Chaplain - 10/30/2023 1:24 PM EDT PROGRESS NOTE - Spiritual Care Contact Information [address] [address] Name: Cherelle Hammond Location: [facility] G510/A Date: 10/30/2023 Time: 1:25 PM Sikh: Mandaen [49] Sikhism Affiliations: REASON FOR VISIT: request and follow-up visit REQUEST RECEIVED FROM: staff member - Name: Chaplain Rivera VISIT LENGTH: 20 min REQUEST FACTORS (Nature of Situation): Follow-up Visit and Patient was an adult level two trauma alert FOCUS OF CARE: Patient SPIRITUAL ASSESSMENT: Valerie or Belief System: Mandaen Most Important Need(s) / Concern(s): Pain and adult level two trauma alert Sense of Community and/or Sikhism Affiliation: Did not identify Addresses need(s)/concerns(s) and/or coleen through: Valerie, Family, Friends SPIRITUAL CARE PROVIDED: Class C Driver addressed needs/concerns and/or coping through: Listening presence, Prayer, and Supportivedialogue REFERRAL TO: Class C Driver OUTCOMES: Comfort/Healing Presence, Identifying Patient's Strengths/Source of Hope, Spiritually Connected, Support System Identified, Trust Self/Others/God ANNOTATION: I provided the emotional and spiritual support for the patient through supportive dialog and a listening presence. The Spiritual Care Department will continue to follow and support the patient and or family as necessary or as requested by the patient or family. I concluded our visit with a prayer for healing. * Ancillary Progress Note - Bina Catherine MSW - 10/30/2023 10:51 AM EDT CARE MANAGEMENT - TRAUMA INITIAL SCREENING [address] [place] [address] Name: Cherelle Hammond Location: [facility] G510/A Date: 10/30/2023 Time: 10:51 AM Discussed with Trauma and with the interdisciplinary care team. This Actuary performed a chartreview and met with patient at bedside to complete admission screen and assessed needs for transition planning. The director day care center role and services were explained and emotional support was provided. Chief Complaint: Fall and transfer of records Prior Living Arrangements What was your living situation prior to admission/observation?: Independently (10/29/232021) Living Quarters: House (10/30/23 1000) Number of steps to enter living quarters:: 0 (10/30/23999) How many stories is the dwelling?: One Story (10/30/23999) Prior Level of Functioning Describe the patient's ability prior to admission/observation to perform ADLs: Performs independently (10/29/232021) Describe the patient's mobility status prior to admission: Patient ambulates independently (10/29/232021) Patient uses assistive device: No (10/29/232021) Caregiver Information Patient Contacts Name Relation Home Work Mobile GRANT HAMMOND Adult Child [phone] Risk Stratification Risk Stratification Psycho Social / Medical Concerns Identified: Adjustment to illness/injury (10/30/23999) Accessed Neighborly to connect patients to social care resources: No (10/30/23 1000) OBRA or OPTIONS needed for placement: No (10/30/23 1000) Readmission Risk Score: 10.39 (10/30/23 0801) AM-PAC Score With Stairs : 8 (10/30/23 0800) Prior to Admission Services Services Prior to Admission RV REPAIR TECHNICIAN Services (Services received within the last 30 days with exception, Psych within last two years): Home Health (10/30/23 1000) List All Provider/Service Name: [facility] (10/30/23 1000) [place] [employer] (PDA) Waiver Program: N/A (10/30/23 1000) RV REPAIR TECHNICIAN Transportation (Services received within the last 30 days): Family/Friends Personal Vehicle (10/30/23 1000) Outpatient Actuary: No care crab steamer to display Comments: CM met with pt, pt reports living alone in a one-story home with 0 [place]. Pt does not driveand pt's son and friend provide transportation. Pt's primary pharmacy is [facility]. Pt usesa walker. Pt does not have a hx with rehab, SNF, or HH. Pt is active with personal care aides through [facility], she states her granddaughter is a caregiver 3 days/week 4 hours/day and there isanother aide that comes for 1 additional day for 4 hours. No MH hx noted and pt declines drug/alcohol use. Patient/Family Expectations: TBD, pending PT/OT eval For further screening information, please refer to the Care Management flow document. * Care Plan - Carla Padilla RN - 10/30/2023 6:58 AM EDT Problem: Pain & Impaired Comfort Goal: Patient's pain & discomfort is manageable. Outcome: Progressing Problem: Safety & Risk for Injury Goal: Patient will remain free from injury. Outcome: Progressing Clinical Goal(s): Patient will have stable neuro checks. (10/29/23 2300) Possible barriers to meeting goal(s)/advancing plan of care: SDH/s/p fall Stability of the patient: Moderately stable - low risk of patient condition declining or worsening Summary regarding today's goal(s): Met: Patient's neuro exams remained unchanged this shift. Recommendations: Continue to monitor neuro checks as ordered, hourly purposeful rounding, on going assessment * Ancillary Progress Note - Jordan Catherine, CLERK OF COURT - 10/29/2023 6:54 PM EDT PATIENT DRIVEN PROTOCOL - Respiratory Care Services [facility] [address] Name: Cherelle Hammond Location: [facility] G510/A Date: 10/29/2023 Time: 6:54 PM Patient Driven Protocol Summary: Initial evaluation performed. This Treatment Plan and medications will be reviewed by the Primary Care Team for any contraindications. Respiratory Care Treatment Plan Aerosol Therapy Treatment:: Hand Held Nebulizer Tx PRN with Albuterol Sulfate: 2 puffs. to reduce work of breathing and improvepulmonary gas exchange. Additional Aerosolized Treatments: Inhaler(s) QDAY with Fluticasone Furoate (200 mcg inhalation powder / 1 inhalation) Arnuity Ellipta. to suppress bronchial inflammation and edema by the use of systemic steroid sparing therapy. . Pulmonary Volume Expansion Therapy: Incentive Spirometry PRN to prevent or treat alveolar consolidation and atelectasis. . The patient will be re-evaluated: No re-evaluation needed. Indications for treatment met. The Triage Level is: (Assessment Score = 0 - 5) Level 5. Triage Level Definitions: Level 1 Severe Respiratory/Airway Compromise Level 2 Moderate Respiratory/Airway Compromise or high risk for pulmonary complications Level 3 Mild Respiratory/Airway Compromise or moderate risk for pulmonary complications Level 4 Episodic Respiratory/Airway Compromise or low risk for pulmonary complications Level 5 No Respiratory/Airway Compromise Triage 1 Triage 2 Triage 3 Triage 4 Triage 5 greater than 20 16 - 20 11 - 15 6 - 10 0 - 5 Medical Record Assessment Clinical Findings Pulmonary Status: 0 - No Smoking or quit greater than 10 years ago Surgical Status: 0 - No Surgical History Chest X-Ray: 2 - Infiltrates and/or Atelectasis Assessment Score: 2 Patient Assessment Clinical Findings Respiratory Pattern: 0 - RR 12 - 20; Patient only gets breathless with strenuous exercise. Breath Sounds: 0 - Clear to auscultation Cough Effectiveness: 0 - Strong non-productive Sputum Production: 0 - No sputum production Level of Activity: 1 - Ambulatory with assist O2 needed to keep SpO2 greater than or equal to 92%: 0 - Room Air Assessment Score: 1 Total Assessment Score: 3 Breath Sounds: Inspiratory and expiratory clear and diminished bilaterally.. Cough and Sputum: An effective cough produced no sputum... CXR: FINDINGS Support apparatus: None. Left basilar atelectasis. Bronchovascular crowding. No sizable pneumothorax or pleural effusion. Cardiomediastinal silhouette and pulmonary vasculature likely within normal limits for technique. IMPRESSION IMPRESSION Hypoventilatory changes. No sizable pneumothorax. Vital Signs: Resp: 15 (10/29/23 1853) Pulse: 70 (10/29/23 1830) Temp: 36.9 C (98.4 F) (10/29/23 1349) BP: 134/52 (10/29/23 1830) SpO2: 97 % (10/29/233) PFT: Minimal Predicted IC: 0.783 L. Inspiratory capacity: 1.5L. Primary Service: Critical Care Black. Admitting Diagnosis: Trauma [T14.90XA] Pulmonary Diagnosis: Asthma. Prescriptions/Home Medications/Durable Medical Equipment: PRN Albuterol, Fluticasone Propionate. Recommended New home medications/durable medical equipment/outpatient pulmonary/sleep referral None. * Ancillary Progress Note - Lily Hernández Chaplain - 10/29/2023 3:57 PM EDT PROGRESS NOTE-Spiritual Care Trauma Alert [facility] [address] Name: Cherelle Hammond Location: Date: 10/29/2023 Time: 3:58 PM Sikh: Mandaen [49] Sikhism Affiliations: REASON FOR CONTACT: Trauma Alert Response TYPE OF ALERT: Adult Level 2 TIME OF ALERT: 13:30 CONTACT LENGTH: 60 MECHANISM OF INJURY/DESCRIPTION OF INCIDENT: fall TRAUMA STATUS: identified - on arrival Patient Name: Cherelle Hammond [address]: [address] [place] [id number] Date of : 40 Source of Information:Hospital Records and family Confirmed By: Name - Cherelle Hammond Relationship to Patient - patient EMERGENCY CONTACT INFORMATION: EMERGENCY CONTACT 1: Name: Grant Hammond Relationship: adult child Phone Numbers - Home: x Work: x Time of Contact: 13:45 ANNOTATION: Responded to L2 trauma. Pt. Was able to confirm her address, name, and . She asked me to contact her son and asked him to come in. I let her know he is coming in. Prayed for her. REFERRED TO HOSE HANDLER: duty or unit , Date - 10/29/2415, Time - 16:30 * Medical Necessity - Fabiana Recinos, JOSE DANIEL - 10/29/2023 2:43 PM EDT AdmissionCare Guideline: Trauma - INPT, Inpatient Based on the indications selected for the patient, the bed status of Inpatient was determined to beMET The following indications were selected as present at the time of evaluation of the patient: - Clinical Indications for Admission to Inpatient Care - Hospital admission is indicated when patient with significant multiple trauma requires inpatient care for 1 or more of the following: - Multiple Trauma and one or more General Admission Criteria or Pediatric General Admission Criteria Additional Information: fell backwards and hit her head on a carpeted, concrete floor. The fall wasunwitnessed. Patient found to have a subdural hematoma and two rib fractures on the right. AdmissionCare documentation entered by: Fabiana Recinos [facility], 28th edition, Copyright 2023 [facility] All Rights Reserved. [id number] Solely for purpose of utilization review and payment; not a diagnostic tool * ED Nail Sticker Note - Destiny Aguilar RN - 10/29/2023 1:56 PM EDT Patient presents via life flight transfer from [facility] as an Adult Level 2 Trauma. This morning she fell backwards and hit her head on a carpeted, concrete floor. The fall was unwitnessed. Patient found to have a subdural hematoma and two rib fractures on the right. She is not on blood thinners. She has a history of dementia, but has been GSC 15. At [facility], she received 2 g of keppra and 4.5 g of zosyn for elevated WBCs and known colitis. She lives alone, but son lives next door and adult granddaughter is involved in her care. documented in this encounter Plan of Treatment Upcoming Encounters Date Type Department Care Team (Late st Contact Info) Description 11/13/2023 4:00 PM EDT Imaging Radiology [address], [address] [place] [id number] 11/21/2023 10:30 AM EDT Office Visit General Surgery, [address] [place] [address] [place] [address], Trauma Clinic [facility] [place] [address] 11/29/2023 10:40 AM EDT Office Visit Neurosurgery, [address] [place] [address] [place] [address] [facility], Traumatic Brain Injury [address] [place] [phone] 12/22/2023 11:20 AM EST Office Visit Family Practice [facility] [address] [place] [id number] Kathy Sweeney MD [address] [place] [phone] 01/09/2024 10:00 AM EST Laboratory Laboratory [facility] [place] [address] [place] [phone] [place], Lab [facility] [address] [facility] [place] [id number] 01/16/2024 12:30 PM EST Office Visit Hematology/Oncology [facility] [address] [place] [phone] Bindu Jones MD [address] [place] [phone] 01/29/2024 9:20 AM EST Office Visit Dermatology, Kailey Buckner [address] [place] [address] Rola Lam PA-C [address] [place] [address] 03/21/2024 3:30 PM EST Office Visit Neurology [facility] [place] [address] [place] [phone] Abbie Arora PA-C 21 [place] [phone] Scheduled Orders Name Type Priority Associated Diagnoses Orde r Schedule XR PELVIS 1 VIEW Medical Imaging Routine One Time for 1 Occurrences starting 10/29/2023 until 10/29/2023 CT HEAD/BRAIN WO CONTRAST Medical Imaging Routine SDH (subdural hematoma) (HCC) Expected: 11/12/2023, Expires: 11/27/2024 XR CHEST 2 VIEWS Medical Imaging STAT Closed fracture of multiple ribs of right side, initial encounter Expected: 11/21/2023, Expires: 12/07/2024 Scheduled Referrals Name Type Priority Associated Diagnoses Order Schedule ADULT ENDOCRINOLOGY REFERRAL OP Referral Within 10 days (routine) Thyroid nodule Ordered: 10/30/2023 Health Maintenance Due Date Last Done Comments Adult Wellness Visit 09/20/2013 09/20/2012 *BISPHONATE OR OTHER ACCEPTABLE MEDICATION NEEDED FOR OSTEOPOROSIS (REFER TO SMARTSET #1146) 05/09/2022 Influenza Vaccine (FLU shot) (#1) 2023 11/22/2022, 11/12/2021, 10/13/2020, Additional history exists DXA Scan 11/11/2023 11/10/2021, 10/08, 07/27/2015, Additional history exists HbA1c 11/23/2023 11/22/2022, 08/2021, 10/13/2020, Additional history exists Depression Screening 06/28/2024 06/29/2023, 09/03/19 15 GFR 11/06/2024 11/07/2023, 10/09, 11/05/2023, Additional history exists Albumin/Creatinine Ratio 11/12/2024 11/12/2021, 06/06 Colonoscopy 07/08/2026 07/08/2021, 03/2021, 11/19/2015, Additional history exists DTap/Tdap Vaccines (2 - Td or Tdap) 11/07/2026 11/07/2016, 07/16/2010 Pneumococcal Vaccine: 65+ Years Completed 09/02/2014, 08/30/2010 Zoster Vaccines Completed 11/21/2019, 0 08/2019, 07/25/2007 COVID-19 Vaccine Discontinued 04/21/2020, 03/31/2020 VITAMIN D LEVEL ONCE IN A LIFETIME-USE SMARTSET# [id number] Completed 10/13/2020, 12/26/2019, 06/21/2018, Additional history exists [...] this encounter Medical Devices Implanted Type Area Glost Placer Device Identifier Shelf Expiration Date Model / Serial / Lot Alloderm 2x4 Sheet [id number] (8 Units) - [id number] Implanted:Qty : 8 on 11/15/2010 at OR [facility] Tissue - Human N/A: Esophagus [employer] 05/06/2012 [id number] / / [id number] documented as of this encounter Procedures Procedure Name Priority Date/Time Associated Diagnosis Comments HEPARIN, LOW MOLECULAR WEIGHT Routine 11/07/2023 9:42 AM EDT BASIC METABOLIC PANEL STAT 11/07/2023 8:51 AM EDT CBC STAT 11/07/2023 8:51 AM EDT BASIC METABOLIC PANEL STAT 11/06/2023 8:35 AM EDT CBC STAT 11/06/2023 8:35 AM EDT BASIC METABOLIC PANEL STAT 11/05/2023 4:28 AM EDT CBC STAT 11/05/2023 4:28 AM EDT BASIC METABOLIC PANEL STAT 11/04/2023 4:21 AM EDT CBC STAT 11/04/2023 4:21 AM EDT BASIC METABOLIC PANEL STAT 11/03/2023 5:06 AM EDT CBC STAT 11/03/2023 5:06 AM EDT BASIC METABOLIC PANEL STAT 11/02/2023 8:33 AM EDT CBC STAT 11/02/2023 8:33 AM EDT URINALYSIS, REFLEX TO CULTURE Routine 11/01/2023 2:50 PM EDT URINALYSIS, REFLEX TO CULTURE (CUP ONLY) Routine 11/01/2023 2:50 PM EDT URINALYSIS, REFLEX TO CULTURE (NOT FOR NEUTROPENIC PATIENTS) Routine 11/01/2023 2:50 PM EDT BASIC METABOLIC PANEL Routine 11/01/2023 4:08 AM EDT PHOSPHORUS Routine 11/01/2023 4:08 AM EDT CALCIUM, IONIZED Routine 11/01/2023 4:08 AM EDT CBC Routine 11/01/2023 4:08 AM EDT MAGNESIUM Routine 11/01/2023 4:08 AM EDT VASC DUPLEX CAROTID BILAT Routine 10/31/2023 3:26 PM EDT Orthostasis BASIC METABOLIC PANEL Routine 10/31/2023 8:00 AM EDT PHOSPHORUS Routine 10/31/2023 8:00 AM EDT CALCIUM, IONIZED Routine 10/31/2023 8:00 AM EDT CBC Routine 10/31/2023 8:00 AM EDT MAGNESIUM Routine 10/31/2023 8:00 AM EDT ECHO, COMPLETE (2D), TRANS-THORACIC Routine 10/30/2023 2:47 PM EDT Orthostasis BASIC METABOLIC PANEL Routine 10/30/2023 6:18 AM EDT PHOSPHORUS Routine 10/30/2023 6:18 AM EDT CALCIUM, IONIZED Routine 10/30/2023 6:18 AM EDT CBC Routine 10/30/2023 6:18 AM EDT MAGNESIUM Routine 10/30/2023 6:18 AM EDT TOXICOLOGY, URINESCREEN W/ CONFIRMATION STAT 10/30/2023 5:22 AM EDT CULTURE, URINE, QUANTITATIVE STAT 10/30/2023 5:22 AM EDT URINALYSIS, REFLEX TO MICROSCOPIC STAT 10/30/2023 5:22 AM EDT CTA NECK W CONTRAST STAT 10/29/2023 6 [address] HEAD/BRAIN WO CONTRAST STAT 10/29/2023 6:33 PM EDT RADIOLOGY EXAM - CT (IMAGES ONLY, NO REPORT) Routine 10/29/2023 3:00 PM EDT RADIOLOGY EXAM - CT (IMAGES ONLY, NO REPORT) Routine 10/29/2023 3:00 PM EDT RADIOLOGY EXAM - CT (IMAGES ONLY, NO REPORT) Routine 10/29/2023 3:[address] CHEST WO CONTRAST STAT 10/29/2023 2:13 PM EDT XR CHEST 1 VIEW Routine 10/29/2023 2:06 PM EDT BASIC METABOLIC PANEL STAT 10/29/2023 2:04 PM EDT ABO/RH STAT 10/29/2023 2:04 PM EDT TYPE AND SCREEN STAT 10/29/2023 2:04 PM EDT PT INR STAT 10/29/2023 2:04 PM EDT AST STAT 10/29/2023 2:04 PM EDT ETHANOL, MEDICAL STAT 10/29/2023 2:04 PM EDT APTT STAT 10/29/2023 2:04 PM EDT DIFFERENTIAL, AUTOMATED STAT 10/29/2023 2:03 PM EDT CBC STAT 10/29/2023 2:03 PM EDT LACTATE STAT 10/29/2023 2:03 PM EDT CBC STAT 10/29/2023 2:03 PM EDT documented in this encounter Results * (ABNORMAL) HEPARIN, LOW MOLECULAR WEIGHT (11/07/2023 9:42 AM EDT) [facility] Heparin, Low Molecular Weight 0.68(H) <0.10 IU/mL 11/07/2023 10:24 AM EDT LABORATORY [facility] Comment:Low molecular weight heparin's therapeutic range is 0.6 - 1.00 I.U./mL. Blood Venous blood specimen / Unknown Venipuncture / Unknown 11/07/2023 9:42 AM EDT 11/07/2023 9:47 AM EDT Jose Harrington MD LAB BLOOD ORDERABL ES LABORATORY [facility] [address] [place] [address] * (ABNORMAL) BASIC METABOLIC PANEL (11/07/2023 8:51 AM EDT) BUN 14 6 - 20 mg/dL 11/07/2023 9:53 AM EDT LABORATORY [facility] CREATININE 0.7 0.5 - 1.0 mg/dL 11/07/2023 9:53 AM EDT LABORATORY C EGFR 87 >=60 mL/min 11/07/2023 9:53 AM EDT LABORATORY C Comment:eGFR is calculated b ased on the CKD-EPI 2020 equation. SODIUM 134(L) 135 - 146 mmol/L 11/07/2023 9:53 AM EDT LABORATORY [facility] POTASSIUM 4.0 3.5 - 5.1 mmol/L 11/07/2023 9:53 AM EDT LABORATORY C CHLORIDE 99 98 - 107 mmol/L 11/07/2023 9:53 AM EDT LABORATORY C CO2 21(L) 22 - 32 mmol/L 11/07/2023 9:53 AM EDT LABORATORY C ANION GAP 14 7 - 15 mmol/L 11/07/2023 9:53 AM EDT LABORATORY [facility] GLUCOSE 200(H) 70 - 120 mg/dL 11/07/2023 9:53 AM EDT LABORATORY C CALCIUM 10.0 8.4 - 10.2 mg/dL 11/07/2023 9:53 AM EDT LABORATORY [facility] Blood Venous blood specimen / Unknown Venipuncture / Unknown 11/07/2023 8:51 AM EDT 11/07/2023 9:23 AM EDT Juju Brito PA-C LAB BLOOD ORD ERABLES LABORATORY [facility] [address] [place] [address] * (ABNORMAL) CBC (11/07/2023 8:51 AM EDT) WBC 12.79(H) 4.00 - 10.80 K/uL 11/07/2023 9:32 AM EDT LABORATORY [facility] RBC 5.33 3.85 - 5.15 M/uL 11/07/2023 9:32 AM EDT LABORATORY [facility] HGB 15.0 12.0 - 15.3 g/dL 11/07/2023 9:32 AM EDT LABORATORY [facility] HCT 47.3(H) 36.0 - 45.2 % 11/07/2023 9:32 AM EDT LABORATORY [facility] MCV 88.7 81.5 - 97.5 fL 11/07/2023 9:32 AM EDT LABORATORY [facility] MCH 28.1 27.0 - 34.0 pg 11/07/2023 9:32 AM EDT LABORATORY [facility] MCHC 31.7 32.0 - 36.0 g/dL 11/07/2023 9:32 AM EDT LABORATORY [facility] RDW 15.6 11.5 - 15.5 % 11/07/2023 9:32 AM EDT LABORATORY [facility] PLT 344 140 - 400 K/uL 11/07/2023 9:32 AM EDT LABORATORY [facility] MPV 8.6 6.6 - 11.1 fL 11/07/2023 9:32 AM EDT LABORATORY [facility] nRBCs 0 <=0 /100 WBCs 11/07/2023 9:32 AM EDT LABORATORY [facility] Blood Venous blood specimen / Unknown Venipuncture / Unknown 11/07/2023 8:51 AM EDT 11/07/2023 9:23 AM EDT Juju Brito PA-C LAB BLOOD ORD ERABLES LABORATORY [facility] [address] [place] [address] * (ABNORMAL) BASIC METABOLIC PANEL (11/06/2023 8:35 AM EDT) BUN 13 6 - 20 mg/dL 11/06/2023 9:11 AM EDT LABORATORY [facility] CREATININE 0.7 0.5 - 1.0 mg/dL 11/06/2023 9:11 AM EDT LABORATORY [facility] EGFR 83 >=60 mL/min 11/06/2023 9:11 AM EDT LABORATORY [facility] Comment:eGFR is calculated b ased on the CKD-EPI 2020 equation. SODIUM 134(L) 135 - 146 mmol/L 11/06/2023 9:11 AM EDT LABORATORY [facility] POTASSIUM 5.1 3.5 - 5.1 mmol/L 11/06/2023 9:11 AM EDT LABORATORY [facility] CHLORIDE 98 98 - 107 mmol/L 11/06/2023 9:11 AM EDT LABORATORY [facility] CO2 25 22 - 32 mmol/L 11/06/2023 9:11 AM EDT LABORATORY [facility] ANION GAP 11 7 - 15 mmol/L 11/06/2023 9:11 AM EDT LABORATORY [facility] GLUCOSE 134(H) 70 - 120 mg/dL 11/06/2023 9:11 AM EDT LABORATORY [facility] CALCIUM 10.3(H) 8.4 - 10.2 mg/dL 11/06/2023 9:11 AM EDT LABORATORY [facility] Blood Venous blood specimen / Unknown Venipuncture / Unknown 11/06/2023 8:35 AM EDT 11/06/2023 8:44 AM EDT Juju Brito PA-C LAB BLOOD ORD ERABLES LABORATORY [facility] [address] [place] [address] * (ABNORMAL) CBC (11/06/2023 8:35 AM EDT) WBC 12.07(H) 4.00 - 10.80 K/uL 11/06/2023 8:54 AM EDT LABORATORY [facility] RBC 5.39 3.85 - 5.15 M/uL 11/06/2023 8:54 AM EDT LABORATORY [facility] HGB 15.3 12.0 - 15.3 g/dL 11/06/2023 8:54 AM EDT LABORATORY [facility] HCT 48.0(H) 36.0 - 45.2 % 11/06/2023 8:54 AM EDT LABORATORY [facility] MCV 89.1 81.5 - 97.5 fL 11/06/2023 8:54 AM EDT LABORATORY [facility] MCH 28.4 27.0 - 34.0 pg 11/06/2023 8:54 AM EDT LABORATORY [facility] MCHC 31.9 32.0 - 36.0 g/dL 11/06/2023 8:54 AM EDT LABORATORY [facility] RDW 15.6 11.5 - 15.5 % 11/06/2023 8:54 AM EDT LABORATORY [facility] PLT 342 140 - 400 K/uL 11/06/2023 8:54 AM EDT LABORATORY [facility] MPV 8.5 6.6 - 11.1 fL 11/06/2023 8:54 AM EDT LABORATORY [facility] nRBCs 0 <=0 /100 WBCs 11/06/2023 8:54 AM EDT LABORATORY [facility] Blood Venous blood specimen / Unknown Venipuncture / Unknown 11/06/2023 8:35 AM EDT 11/06/2023 8:44 AM EDT Juju Brito PA-C LAB BLOOD ORD ERABLES LABORATORY [facility] [address] [place] [address] * (ABNORMAL) BASIC METABOLIC PANEL (11/05/2023 4:28 AM EDT) BUN 11 6 - 20 mg/dL 11/05/2023 5:23 AM EDT LABORATORY [facility] CREATININE 0.6 0.5 - 1.0 mg/dL 11/05/2023 5:23 AM EDT LABORATORY C EGFR 89 >=60 mL/min 11/05/2023 5:23 AM EDT LABORATORY C Comment:eGFR is calculated b ased on the CKD-EPI 2020 equation. SODIUM 135 135 - 146 mmol/L 11/05/2023 5:23 AM EDT LABORATORY [facility] POTASSIUM 4.3 3.5 - 5.1 mmol/L 11/05/2023 5:23 AM EDT LABORATORY [facility] CHLORIDE 103 98 - 107 mmol/L 11/05/2023 5:23 AM EDT LABORATORY [facility] CO2 19(L) 22 - 32 mmol/L 11/05/2023 5:23 AM EDT LABORATORY [facility] ANION GAP 13 7 - 15 mmol/L 11/05/2023 5:23 AM EDT LABORATORY [facility] GLUCOSE 133(H) 70 - 120 mg/dL 11/05/2023 5:23 AM EDT LABORATORY [facility] CALCIUM 9.7 8.4 - 10.2 mg/dL 11/05/2023 5:23 AM EDT LABORATORY [facility] Blood Venous blood specimen / Unknown Venipuncture / Unknown 11/05/2023 4:28 AM EDT 11/05/2023 4:44 AM EDT Juju Farley Alisha RIZVI LAB BLOOD ORD ERABLES LABORATORY [facility] [address] [place] [address] * (ABNORMAL) CBC (11/05/2023 4:28 AM EDT) WBC 12.61(H) 4.00 - 10.80 K/uL 11/05/2023 4:54 AM EDT LABORATORY [facility] RBC 4.97 3.85 - 5.15 M/uL 11/05/2023 4:54 AM EDT LABORATORY [facility] HGB 14.1 12.0 - 15.3 g/dL 11/05/2023 4:54 AM EDT LABORATORY [facility] HCT 44.8 36.0 - 45.2 % 11/05/2023 4:54 AM EDT LABORATORY [facility] MCV 90.1 81.5 - 97.5 fL 11/05/2023 4:54 AM EDT LABORATORY [facility] MCH 28.4 27.0 - 34.0 pg 11/05/2023 4:54 AM EDT LABORATORY [facility] MCHC 31.5 32.0 - 36.0 g/dL 11/05/2023 4:54 AM EDT LABORATORY [facility] RDW 15.5 11.5 - 15.5 % 11/05/2023 4:54 AM EDT LABORATORY [facility] PLT 333 140 - 400 K/uL 11/05/2023 4:54 AM EDT LABORATORY [facility] MPV 8.6 6.6 - 11.1 fL 11/05/2023 4:54 AM EDT LABORATORY [facility] nRBCs 0 <=0 /100 WBCs 11/05/2023 4:54 AM EDT LABORATORY G[facility] Blood Venous blood specimen / Unknown Venipuncture / Unknown 11/05/2023 4:28 AM EDT 11/05/2023 4:44 AM EDT Juju Brito PA-C LAB BLOOD ORD ERABLES LABORATORY [facility] [address] [place] [address] * BASIC METABOLIC PANEL (11/04/2023 4:21 AM EDT) BUN 9 6 - 20 mg/dL 11/04/2023 4:57 AM EDT LABORATORY [facility] CREATININE 0.6 0.5 - 1.0 mg/dL 11/04/2023 4:57 AM EDT LABORATORY [facility] EGFR 89 >=60 mL/min 11/04/2023 4:57 AM EDT LABORATORY [facility] Comment:eGFR is calculated b ased on the CKD-EPI 2020 equation. SODIUM 138 135 - 146 mmol/L 11/04/2023 4:57 AM EDT LABORATORY [facility] POTASSIUM 4.0 3.5 - 5.1 mmol/L 11/04/2023 4:57 AM EDT LABORATORY [facility] CHLORIDE 105 98 - 107 mmol/L 11/04/2023 4:57 AM EDT LABORATORY [facility] CO2 22 22 - 32 mmol/L 11/04/2023 4:57 AM EDT LABORATORY [facility] ANION GAP 11 7 - 15 mmol/L 11/04/2023 4:57 AM EDT LABORATORY [facility] GLUCOSE 116 70 - 120 mg/dL 11/04/2023 4:57 AM EDT LABORATORY [facility] CALCIUM 9.6 8.4 - 10.2 mg/dL 11/04/2023 4:57 AM EDT LABORATORY C Blood Venous blood specimen / Unknown Venipuncture / Unknown 11/04/2023 4:21 AM EDT 11/04/2023 4:27 AM EDT Juju Brito PA-C LAB BLOOD ORD ERABLES LABORATORY [facility] [address] [place] [address] * (ABNORMAL) CBC (11/04/2023 4:21 AM EDT) WBC 11.81(H) 4.00 - 10.80 K/uL 11/04/2023 4:38 AM EDT LABORATORY [facility] RBC 4.64 3.85 - 5.15 M/uL 11/04/2023 4:38 AM EDT LABORATORY [facility] HGB 13.1 12.0 - 15.3 g/dL 11/04/2023 4:38 AM EDT LABORATORY [facility] HCT 40.5 36.0 - 45.2 % 11/04/2023 4:38 AM EDT LABORATORY [facility] MCV 87.3 81.5 - 97.5 fL 11/04/2023 4:38 AM EDT LABORATORY [facility] MCH 28.2 27.0 - 34.0 pg 11/04/2023 4:38 AM EDT LABORATORY GM MCHC 32.3 32.0 - 36.0 g/dL 11/04/2023 4:38 AM EDT LABORATORY GM RDW 15.6 11.5 - 15.5 % 11/04/2023 4:38 AM EDT LABORATORY GM PLT 313 140 - 400 K/uL 11/04/2023 4:38 AM EDT LABORATORY C MPV 8.9 6.6 - 11.1 fL 11/04/2023 4:38 AM EDT LABORATORY [facility] nRBCs 0 <=0 /100 WBCs 11/04/2023 4:38 AM EDT LABORATORY [facility] Blood Venous blood specimen / Unknown Venipuncture / Unknown 11/04/2023 4:21 AM EDT 11/04/2023 4:27 AM EDT Juju Brito PA-C LAB BLOOD ORD ERABLES LABORATORY [facility] [address] [place] [address] * (ABNORMAL) BASIC METABOLIC PANEL (11/03/2023 5:06 AM EDT) Pathologist [facility] BUN 8 6 - 20 mg/dL 11/03/2023 5:52 AM EDT LABORATORY [facility] CREATININE 0.6 0.5 - 1.0 mg/dL 11/03/2023 5:52 AM EDT LABORATORY [facility] EGFR 89 >=60 mL/min 11/03/2023 5:52 AM EDT LABORATORY [facility] Comment:eGFR is calculated b ased on the CKD-EPI 2020 equation. SODIUM 139 135 - 146 mmol/L 11/03/2023 5:52 AM EDT LABORATORY [facility] POTASSIUM 4.0 3.5 - 5.1 mmol/L 11/03/2023 5:52 AM EDT LABORATORY [facility] CHLORIDE 106 98 - 107 mmol/L 11/03/2023 5:52 AM EDT LABORATORY [facility] CO2 21(L) 22 - 32 mmol/L 11/03/2023 5:52 AM EDT LABORATORY [facility] ANION GAP 12 7 - 15 mmol/L 11/03/2023 5:52 AM EDT LABORATORY [facility] GLUCOSE 123(H) 70 - 120 mg/dL 11/03/2023 5:52 AM EDT LABORATORY [facility] CALCIUM 9.4 8.4 - 10.2 mg/dL 11/03/2023 5:52 AM EDT LABORATORY [facility] Blood Venous blood specimen / Unknown Venipuncture / Unknown 11/03/2023 5:06 AM EDT 11/03/2023 5:21 AM EDT Juju Brito PA-C LAB BLOOD ORD ERABLES LABORATORY [facility] [address] [place] [address] * CBC (11/03/2023 5:06 AM EDT) WBC 9.94 4.00 - 10.80 K/uL 11/03/2023 5:35 AM EDT LABORATORY [facility] RBC 4.35 3.85 - 5.15 M/uL 11/03/2023 5:35 AM EDT LABORATORY [facility] HGB 12.6 12.0 - 15.3 g/dL 11/03/2023 5:35 AM EDT LABORATORY [facility] HCT 38.7 36.0 - 45.2 % 11/03/2023 5:35 AM EDT LABORATORY [facility] MCV 89.0 81.5 - 97.5 fL 11/03/2023 5:35 AM EDT LABORATORY [facility] MCH 29.0 27.0 - 34.0 pg 11/03/2023 5:35 AM EDT LABORATORY [facility] MCHC 32.6 32.0 - 36.0 g/dL 11/03/2023 5:35 AM EDT LABORATORY [facility] RDW 15.2 11.5 - 15.5 % 11/03/2023 5:35 AM EDT LABORATORY [facility] PLT 278 140 - 400 K/uL 11/03/2023 5:35 AM EDT LABORATORY [facility] MPV 8.8 6.6 - 11.1 fL 11/03/2023 5:35 AM EDT LABORATORY [facility] nRBCs 0 <=0 /100 WBCs 11/03/2023 5:35 AM EDT LABORATORY [facility] Blood Venous blood specimen / Unknown Venipuncture / Unknown 11/03/2023 5:06 AM EDT 11/03/2023 5:21 AM EDT Juju Brito PA-C LAB BLOOD ORD ERABLES Performing Organization Address City/State/[facility] Co de Phone Number LABORATORY [facility] [address] [place], [place] [address] * BASIC METABOLIC PANEL (11/02/2023 8:33 AM EDT) BUN 8 6 - 20 mg/dL 11/02/2023 9:56 AM EDT LABORATORY [facility] CREATININE 0.6 0.5 - 1.0 mg/dL 11/02/2023 9:56 AM EDT LABORATORY [facility] EGFR 89 >=60 mL/min 11/02/2023 9:56 AM EDT LABORATORY [facility] Comment:eGFR is calculated b ased on the CKD-EPI 2020 equation. SODIUM 138 135 - 146 mmol/L 11/02/2023 9:56 AM EDT LABORATORY [facility] POTASSIUM 3.9 3.5 - 5.1 mmol/L 11/02/2023 9:56 AM EDT LABORATORY [facility] CHLORIDE 105 98 - 107 mmol/L 11/02/2023 9:56 AM EDT LABORATORY [facility] CO2 23 22 - 32 mmol/L 11/02/2023 9:56 AM EDT LABORATORY [facility] ANION GAP 10 7 - 15 mmol/L 11/02/2023 9:56 AM EDT LABORATORY [facility] GLUCOSE 119 70 - 120 mg/dL 11/02/2023 9:56 AM EDT LABORATORY [facility] CALCIUM 9.4 8.4 - 10.2 mg/dL 11/02/2023 9:56 AM EDT LABORATORY [facility] Blood Venous blood specimen / Unknown Venipuncture / Unknown 11/02/2023 8:33 AM EDT 11/02/2023 9:27 AM EDT Juju Brito PA-C LAB BLOOD ORD ERABLES LABORATORY [facility] [address] [place] [address] * CBC (11/02/2023 8:33 AM EDT) WBC 8.19 4.00 - 10.80 K/uL 11/02/2023 9:36 AM EDT LABORATORY [facility] RBC 4.49 3.85 - 5.15 M/uL 11/02/2023 9:36 AM EDT LABORATORY [facility] HGB 13.4 12.0 - 15.3 g/dL 11/02/2023 9:36 AM EDT LABORATORY [facility] HCT 39.8 36.0 - 45.2 % 11/02/2023 9:36 AM EDT LABORATORY [facility] MCV 88.6 81.5 - 97.5 fL 11/02/2023 9:36 AM EDT LABORATORY [facility] MCH 29.8 27.0 - 34.0 pg 11/02/2023 9:36 AM EDT LABORATORY [facility] MCHC 33.7 32.0 - 36.0 g/dL 11/02/2023 9:36 AM EDT LABORATORY [facility] RDW 14.9 11.5 - 15.5 % 11/02/2023 9:36 AM EDT LABORATORY [facility] PLT 294 140 - 400 K/uL 11/02/2023 9:36 AM EDT LABORATORY [facility] MPV 9.0 6.6 - 11.1 fL 11/02/2023 9:36 AM EDT LABORATORY [facility] nRBCs 0 <=0 /100 WBCs 11/02/2023 9:36 AM EDT LABORATORY [facility] Blood Venous blood specimen / Unknown Venipuncture / Unknown 11/02/2023 8:33 AM EDT 11/02/2023 9:27 AM EDT Juju Brito PA-C LAB BLOOD ORD ERABLES LABORATORY [facility] [address] [place] [address] * URINALYSIS, REFLEX TO CULTURE (11/01/2023 2:50 PM EDT) Color, Urine Light Yellow Colorless, Light Yellow, Yellow, Dark Yellow 11/01/2023 3:12 PM EDT LABORATORY C Clarity, Urine Clear Clear 11/01/2023 3:12 PM EDT LABORATORY C Glucose, Urine Negative Negative mg/dL 11/01/2023 3:12 PM EDT LABORATORY C Bilirubin, Urine Negative Negative 11/01/2023 3:12 PM EDT LABORATORY C Ketone, Urine Negative Negative mg/dL 11/01/2023 3:12 PM EDT LABORATORY C Specific [place], Urine 1.009 1.003 - 1.030 11/01/2023 3:12 PM EDT LABORATORY C Blood, Urine Negative Negative 11/01/2023 3:12 PM EDT LABORATORY C pH, Urine 6.0 5.0 - 7.5 Units 11/01/2023 3:12 PM EDT LABORATORY C Protein, Urine Negative Negative mg/dL 11/01/2023 3:12 PM EDT LABORATORY C Urobilinogen, Urine Normal Normal mg/dL 11/01/2023 3:12 PM EDT LABORATORY C Nitrite, Urine Negative Negative 11/01/2023 3:12 PM EDT LABORATORY C Esterase, Urine Negative Negative 11/01/2023 3:12 PM EDT LABORATORY C RBC, Urine 0-2 0 - 2 /HPF 11/01/2023 3:12 PM EDT LABORATORY [facility] WBC, Urine 0-2 0 - 2 /HPF 11/01/2023 3:12 PM EDT LABORATORY [facility] Bacteria, Urine 0-25 0 - 25 /HPF 11/01/2023 3:12 PM EDT LABORATORY [facility] Culture, Urine 11/01/2023 3:12 PM EDT LABORATORY [facility] Comment:Culture not indicate d by urinalysis results Urine Urine specimen obtained by clean catch procedure / Unknown Non-blood Collection / Unknown 11/01/2023 2:50 PM EDT 11/01/2023 3:01 PM EDT Karen Morales [employer] PA-C LAB URINE ORDERAB LES Performing Organization Address City/[facility]/ZIP Co de Phone Number LABORATORY [facility] [address] [place] [address] * URINALYSIS, REFLEX TO CULTURE (CUP ONLY) (11/01/2023 2:50 PM EDT) Urinalysis, Reflex to Culture Specimen Specimen collected and received 11/01/2023 5:01 PM EDT LABORATORY [facility] Urine Urine specimen obtained by clean catch procedure / Unknown Non-blood Collection / Unknown 11/01/2023 2:50 PM EDT 11/01/2023 3:01 PM EDT Karen Morales [employer] PA-C LAB URINE ORDERAB LES Performing Organization Address [facility] Co de Phone Number LABORATORY [facility] [address] [place] [address] * (ABNORMAL) CBC (11/01/2023 4:08 AM EDT) WBC 8.84 4.00 - 10.80 K/uL 11/01/2023 5:08 AM EDT LABORATORY [facility] RBC 4.14 3.85 - 5.15 M/uL 11/01/2023 5:08 AM EDT LABORATORY GM HGB 11.6(L) 12.0 - 15.3 g/dL 11/01/2023 5:08 AM EDT LABORATORY [facility] HCT 37.7 36.0 - 45.2 % 11/01/2023 5:08 AM EDT LABORATORY [facility] MCV 91.1 81.5 - 97.5 fL 11/01/2023 5:08 AM EDT LABORATORY GM MCH 28.0 27.0 - 34.0 pg 11/01/2023 5:08 AM EDT LABORATORY [facility] MCHC 30.8 32.0 - 36.0 g/dL 11/01/2023 5:08 AM EDT LABORATORY C RDW 15.2 11.5 - 15.5 % 11/01/2023 5:08 AM EDT LABORATORY [facility] PLT 240 140 - 400 K/uL 11/01/2023 5:08 AM EDT LABORATORY [facility] MPV 9.3 6.6 - 11.1 fL 11/01/2023 5:08 AM EDT LABORATORY C nRBCs 0 <=0 /100 WBCs 11/01/2023 5:08 AM EDT LABORATORY [facility] Blood Venous blood specimen / Unknown Venipuncture / Unknown 11/01/2023 4:08 AM EDT 11/01/2023 4:52 AM EDT Christopher Vogel PA-C LAB BLOOD ORD ERABLES LABORATORY [facility] [address] [place] [address] * (ABNORMAL) BASIC METABOLIC PANEL (11/01/2023 4:08 AM EDT) BUN 8 6 - 20 mg/dL 11/01/2023 5:25 AM EDT LABORATORY [facility] CREATININE 0.6 0.5 - 1.0 mg/dL 11/01/2023 5:25 AM EDT LABORATORY [facility] EGFR 89 >=60 mL/min 11/01/2023 5:25 AM EDT LABORATORY [facility] Comment:eGFR is calculated b ased on the CKD-EPI 2020 equation. SODIUM 139 135 - 146 mmol/L 11/01/2023 5:25 AM EDT LABORATORY [facility] POTASSIUM 4.1 3.5 - 5.1 mmol/L 11/01/2023 5:25 AM EDT LABORATORY [facility] CHLORIDE 109(H) 98 - 107 mmol/L 11/01/2023 5:25 AM EDT LABORATORY [facility] CO2 22 22 - 32 mmol/L 11/01/2023 5:25 AM EDT LABORATORY [facility] ANION GAP 8 7 - 15 mmol/L 11/01/2023 5:25 AM EDT LABORATORY [facility] GLUCOSE 93 70 - 120 mg/dL 11/01/2023 5:25 AM EDT LABORATORY [facility] CALCIUM 8.8 8.4 - 10.2 mg/dL 11/01/2023 5:25 AM EDT LABORATORY [facility] Blood Venous blood specimen / Unknown Venipuncture / Unknown 11/01/2023 4:08 AM EDT 11/01/2023 4:52 AM EDT Christopher Vogel PA-C LAB BLOOD ORD ERAOSWALDO Performing Organization Address City/[facility] Co de Phone Number LABORATORY [facility] [address] [place] [address] * CALCIUM, IONIZED (11/01/2023 4:08 AM EDT) Calcium, Ionized 1.28 1.13 - 1.32 mmol/L 11/01/2023 5:11 AM EDT LABORATORY C Comment:This test was develo ped and its performance characteristics dtermined by [employer]. It has not been cleared or approved by the [place] Food and Drug Administration Blood Venous blood specimen / Unknown Venipuncture / Unknown 11/01/2023 4:08 AM EDT 11/01/2023 4:52 AM EDT Christopher Vogel PA-C LAB BLOOD ORD ERAOSWALDO Performing Organization Address [facility] Co de Phone Number LABORATORY [facility] [address] [place] [address] * MAGNESIUM (11/01/2023 4:08 AM EDT) Pathologist [facility] Magnesium 2.2 1.5 - 2.6 mg/dL 11/01/2023 5:25 AM EDT LABORATORY [facility] Blood Venous blood specimen / Unknown Venipuncture / Unknown 11/01/2023 4:08 AM EDT 11/01/2023 4:52 AM EDT Christopher Vogel PA-C LAB BLOOD ORD ERAOSWALDO LABORATORY [facility] [address] [place] [address] * PHOSPHORUS (11/01/2023 4:08 AM EDT) Phosphorus 3.2 2.5 - 4.8 mg/dL 11/01/2023 5:25 AM EDT LABORATORY [facility] Blood Venous blood specimen / Unknown Venipuncture / Unknown 11/01/2023 4:08 AM EDT 11/01/2023 4:52 AM EDT Christopher Vogel PA-C LAB BLOOD ORD ERABLES LABORATORY [facility] [address] [facility] [place] [address] * [facility] DUPLEX CAROTID BILAT (10/31/2023 3:26 PM EDT) Anatomical Region Laterality Modality Neck, Vascular Ultrasound Narrative 10/31/2023 7:05 PM EDT VASCULAR LAB RESULTS DATE OF EXAM: 10/31/23 PRESENTING CONDITIONS: severe orthostatic hypotension PHYSICIAN REPORT Carotid Artery Duplex Examination Immediately before proceeding with the vascular lab procedure reported below, the identity of the patient, the correct exam and the correct procedural site were verified. Burr scale and color flow Doppler imaging was performed for evaluation of the right carotid artery. Duplex examination of the right carotid artery identifies atherosclerotic plaque at the carotid bifurcation. The plaque is echogenic and appears to have a smooth surface. Color Doppler imaging was performed for evaluation of the right carotid bifurcation. Spectral analysis of the right internal carotid artery demonstrates peak systolic velocities of 123 cm/sec. Maximum end diastolic velocities are 19 cm/sec.. Peak right common carotid velocity is 86 cm/sec. The right internal carotid to common carotid ratio is 1.4. The right external carotid artery has a peak velocity of 87 centimeters per second. Burr scale and color flow Doppler imaging was performed for the evaluation of the left carotid artery. Duplex examination of the left carotid artery identifies atherosclerotic plaque at the carotid bifurcation. The plaque is echogenic and appears to have a smooth surface. Color Doppler imaging was performed for the evaluation of the left carotid bifurcation. Spectral analysis of the left internal carotid artery demonstrates peak systolic velocities of 100 cm/sec. Maximum end diastolic velocities are 19 cm/sec. Peak left common carotid velocity is 81 cm/sec. The left internal carotid to common carotid ratio is 1.2. The left external carotid artery has a peak velocity of 100 centimeters per second. The right vertebral artery demonstrates antegrade flow. The left vertebral artery demonstrates antegrade flow. Impression: Right carotid artery duplex examination indicates evidence of less than 50% stenosis of the internal carotid artery. Left carotid artery duplex examination indicates evidence of less than 50% stenosis of the internal carotid artery. Alix Deutsch DO RAD VASCULAR * (ABNORMAL) CBC (10/31/2023 8:00 AM EDT) WBC 10.92(H) 4.00 - 10.80 K/uL 10/31/2023 8:32 AM EDT LABORATORY [facility] RBC 4.58 3.85 - 5.15 M/uL 10/31/2023 8:32 AM EDT LABORATORY [facility] HGB 13.0 12.0 - 15.3 g/dL 10/31/2023 8:32 AM EDT LAB[facility]ATORY [facility] HCT 40.8 36.0 - 45.2 % 10/31/2023 8:32 AM EDT LABORATORY [facility] MCV 89.1 81.5 - 97.5 fL 10/31/2023 8:32 AM EDT LAB[facility]ATORY [facility] MCH 28.4 27.0 - 34.0 pg 10/31/2023 8:32 AM EDT LABORATORY [facility] MCHC 31.9 32.0 - 36.0 g/dL 10/31/2023 8:32 AM EDT LAB[facility]ATORY [facility] RDW 15.2 11.5 - 15.5 % 10/31/2023 8:32 AM EDT LABORATORY [facility] PLT 247 140 - 400 K/uL 10/31/2023 8:32 AM EDT LAB[facility]ATORY [facility] MPV 8.9 6.6 - 11.1 fL 10/31/2023 8:32 AM EDT LABORATORY [facility] nRBCs 0 <=0 /100 WBCs 10/31/2023 8:32 AM EDT LAB[facility]ATORY [facility] Blood Venous blood specimen / Unknown Venipuncture / Unknown 10/31/2023 8:00 AM EDT 10/31/2023 8:24 AM EDT Chirstopher Vogel PA-C LAB BLOOD ORD ERABLES LABORATORY [facility] [address] [place] [address] * (ABNORMAL) BASIC METABOLIC PANEL (10/31/2023 8:00 AM EDT) BUN 9 6 - 20 mg/dL 10/31/2023 9:13 AM EDT LABORATORY C CREATININE 0.7 0.5 - 1.0 mg/dL 10/31/2023 9:13 AM EDT LABORATORY C EGFR 86 >=60 mL/min 10/31/2023 9:13 AM EDT LABORATORY C Comment:eGFR is calculated b ased on the CKD-EPI 2020 equation. SODIUM 140 135 - 146 mmol/L 10/31/2023 9:13 AM EDT LABORATORY [facility] POTASSIUM 4.2 3.5 - 5.1 mmol/L 10/31/2023 9:13 AM EDT LABORATORY C CHLORIDE 106 98 - 107 mmol/L 10/31/2023 9:13 AM EDT LAB[facility]ATORY [facility] CO2 23 22 - 32 mmol/L 10/31/2023 9:13 AM EDT LAB[facility]ATORY [facility] ANION GAP 11 7 - 15 mmol/L 10/31/2023 9:13 AM EDT LABORATORY C GLUCOSE 126(H) 70 - 120 mg/dL 10/31/2023 9:13 AM EDT LABORATORY C CALCIUM 9.0 8.4 - 10.2 mg/dL 10/31/2023 9:13 AM EDT LABORATORY [facility] Blood Venous blood specimen / Unknown Venipuncture / Unknown 10/31/2023 8:00 AM EDT 10/31/2023 8:26 AM EDT Christopher Vogel PA-C LAB BLOOD ORD ERABLES LABORATORY [facility] [address] [place] [address] * CALCIUM, IONIZED (10/31/2023 8:00 AM EDT) Calcium, Ionized 1.21 1.13 - 1.32 mmol/L 10/31/2023 8:49 AM EDT LABORATORY [facility] Comment:This test was develo ped and its performance characteristics dtermined by [employer]. It has not been cleared or approved by the [place] Food and Drug Administration Blood Venous blood specimen / Unknown Venipuncture / Unknown 10/31/2023 8:00 AM EDT 10/31/2023 8:26 AM EDT Christopher Vogel PA-C LAB BLOOD ORD ERABLES LABORATORY [facility] [address] [place] [address] * MAGNESIUM (10/31/2023 8:00 AM EDT) Magnesium 2.2 1.5 - 2.6 mg/dL 10/31/2023 9:13 AM EDT LABORATORY [facility] Blood Venous blood specimen / Unknown Venipuncture / Unknown 10/31/2023 8:00 AM EDT 10/31/2023 8:26 AM EDT Christopher Vogel PA-C LAB BLOOD ORD ERABLES Performing Organization Address [facility] Co de Phone Number LABORATORY [facility] [address] [place] [address] * PHOSPHORUS (10/31/2023 8:00 AM EDT) Phosphorus 3.3 2.5 - 4.8 mg/dL 10/31/2023 9:13 AM EDT LABORATORY [facility] Blood Venous blood specimen / Unknown Venipuncture / Unknown 10/31/2023 8:00 AM EDT 10/31/2023 8:26 AM EDT Christopher Vogel PA-C LAB BLOOD ORD ERAOSWALDO Performing Organization Address City/[facility] Co de Phone Number LABORATORY [facility] [address] [place] [address] * ECHO, COMPLETE (2D), TRANS-THORACIC (10/30/2023 2:47 PM EDT) LEFT VENTRICULAR EJECTION FRACTION 60 % [facility] CARDIOLOGY 10/30/2023 1:59 PM EDT Gigi Rios DO ECHOCARDIOLOG Y [facility] CARDIOLOGY * (ABNORMAL) CBC (10/30/2023 6:18 AM EDT) WBC 11.21(H) 4.00 - 10.80 K/uL 10/30/2023 7:23 AM EDT LABORATORY [facility] RBC 4.23 3.85 - 5.15 M/uL 10/30/2023 7:23 AM EDT LABORATORY [facility] HGB 12.2 12.0 - 15.3 g/dL 10/30/2023 7:23 AM EDT LABORATORY [facility] HCT 38.1 36.0 - 45.2 % 10/30/2023 7:23 AM EDT LABORATORY [facility] MCV 90.1 81.5 - 97.5 fL 10/30/2023 7:23 AM EDT LABORATORY [facility] MCH 28.8 27.0 - 34.0 pg 10/30/2023 7:23 AM EDT LAB[facility]ATORY [facility] MCHC 32.0 32.0 - 36.0 g/dL 10/30/2023 7:23 AM EDT LABORATORY [facility] RDW 15.6 11.5 - 15.5 % 10/30/2023 7:23 AM EDT LABORATORY [facility] PLT 214 140 - 400 K/uL 10/30/2023 7:23 AM EDT LABORATORY [facility] MPV 9.5 6.6 - 11.1 fL 10/30/2023 7:23 AM EDT LABORATORY [facility] nRBCs 0 <=0 /100 WBCs 10/30/2023 7:23 AM EDT LABORATORY [facility] Blood Venous blood specimen / Unknown Venipuncture / Unknown 10/30/2023 6:18 AM EDT 10/30/2023 7:13 AM EDT Christopher Abundio Lela PA-C LAB BLOOD ORD ERABLES LABORATORY [facility] [address] [place] [address] * (ABNORMAL) BASIC METABOLIC PANEL (10/30/2023 6:18 AM EDT) BUN 11 6 - 20 mg/dL 10/30/2023 7:42 AM EDT LABORATORY C CREATININE 0.6 0.5 - 1.0 mg/dL 10/30/2023 7:42 AM EDT LABORATORY [facility] EGFR 88 >=60 mL/min 10/30/2023 7:42 AM EDT LABORATORY [facility] Comment:eGFR is calculated b ased on the CKD-EPI 2020 equation. SODIUM 139 135 - 146 mmol/L 10/30/2023 7:42 AM EDT LABORATORY [facility] POTASSIUM 3.9 3.5 - 5.1 mmol/L 10/30/2023 7:42 AM EDT LABORATORY C CHLORIDE 107 98 - 107 mmol/L 10/30/2023 7:42 AM EDT LABORATORY C CO2 19(L) 22 - 32 mmol/L 10/30/2023 7:42 AM EDT LABORATORY [facility] ANION GAP 13 7 - 15 mmol/L 10/30/2023 7:42 AM EDT LABORATORY C GLUCOSE 96 70 - 120 mg/dL 10/30/2023 7:42 AM EDT LABORATORY C CALCIUM 8.6 8.4 - 10.2 mg/dL 10/30/2023 7:42 AM EDT LABORATORY C Blood Venous blood specimen / Unknown Venipuncture / Unknown 10/30/2023 6:18 AM EDT 10/30/2023 7:13 AM EDT Christopher Vogel PA-C LAB BLOOD ORD ERABLES LABORATORY [facility] [address] [place] [address] * CALCIUM, IONIZED (10/30/2023 6:18 AM EDT) Calcium, Ionized 1.23 1.13 - 1.32 mmol/L 10/30/2023 7:21 AM EDT LABORATORY [facility] Comment:This test was develo ped and its performance characteristics dtermined by [employer]. It has not been cleared or approved by the [place] Food and Drug Administration Blood Venous blood specimen / Unknown Venipuncture / Unknown 10/30/2023 6:18 AM EDT 10/30/2023 7:11 AM EDT Christopher Vogel PA-C LAB BLOOD ORD ERAOSWALDO Performing Organization Address City/[facility]/ZIP Co de Phone Number LABORATORY [facility] [address] [place] [address] * MAGNESIUM (10/30/2023 6:18 AM EDT) Magnesium 2.3 1.5 - 2.6 mg/dL 10/30/2023 7:42 AM EDT LABORATORY [facility] Blood Venous blood specimen / Unknown Venipuncture / Unknown 10/30/2023 6:18 AM EDT 10/30/2023 7:13 AM EDT Christopher Vogel PA-C LAB BLOOD ORD ERAOSWALDO Performing Organization Address [facility] Co de Phone Number LABORATORY [place] [address] [place] [address] * PHOSPHORUS (10/30/2023 6:18 AM EDT) Phosphorus 3.2 2.5 - 4.8 mg/dL 10/30/2023 7:42 AM EDT LABORATORY [facility] Blood Venous blood specimen / Unknown Venipuncture / Unknown 10/30/2023 6:18 AM EDT 10/30/2023 7:13 AM EDT Christopher Vogel PA-C LAB BLOOD ORD ERAOSWALDO Performing Organization Address [facility] Co de Phone Number LABORATORY [facility] [address] [place] [address] * TOXICOLOGY, URINESCREEN W/ CONFIRMATION (10/30/2023 5:22 AM EDT) Amphetamines Screen, U Negative Negative 10/30/2023 5:46 AM EDT LABORATORY [facility] Benzodiazepines Screen, U Negative Negative 10/30/2023 5:46 AM EDT LABORATORY [facility] Cannabinoids Screen, U Negative Negative 10/30/2023 5:46 AM EDT LABORATORY [facility] Cocaine Metabolite Screen, U Negative Negative 10/30/2023 5:46 AM EDT LABORATORY [facility] Fentanyl Screen, U Negative Negative 2023 5:46 AM EDT LABORATORY [facility] Hydrocodone Screen, U Negative Negative 10/30/2023 5:46 AM EDT LABORATORY [facility] Methadone Metabolite Screen, U Negative Negative 10/30/2023 5:46 AM EDT LABORATORY [facility] Morphine/Codeine Screen, U Negative Negative 10/30/2023 5:46 AM EDT LABORATORY [facility] Oxycodone Screen, U Negative Negative 10/29 5:46 AM EDT LABORATORY [facility] Urine Non-blood Collection / Unknown 10/30/2023 5:22 AM EDT 10/30/2023 5:29 AM EDT Narrative LABORATORY [facility] - 10/30/2023 5:46 AM EDT Cutoff Concentrations: Drug Level Amphetamines 500 ng/mL Benzodiazepines 100 ng/mL Cannabinoids 50 ng/mL Cocaine Metabolite 150 ng/mL Fentanyl 1 ng/mL Hydrocodone / Hydromorphone 300 ng/mL Methadone Metabolite 100 ng/mL Morphine / Codeine 300 ng/mL Oxycodone / Oxymorphone 100 ng/mL Screening results are presumptive and can only be used for medical purposes. Positive screening results are reflexed to confirmatory testing. Maria G Titus MD LAB URINE ORDERABLES LABORATORY [facility] [address] [place] [address] * CULTURE, URINE, QUANTITATIVE (10/30/2023 5:22 AM EDT) Culture Growth < 100 colonies/m l (no growth) 10/31/2023 8:56 AM EDT LABORATORY [facility] Urine Urine specimen obtained by clean catch procedure / Unknown Non-blood Collection / Unknown 10/30/2023 5:22 AM EDT 10/30/2023 5:29 AM EDT Maria G Titus MD LAB MICRO - GENERAL ORDERABLES Performing Organization Address City/[facility]/ZIP Co de Phone Number LABORATORY [facility] [address] [place] [address] * URINALYSIS, REFLEX TO MICROSCOPIC (10/30/2023 5:22 AM EDT) Color, Urine Yellow Colorless, Light Yellow, Yellow, Dark Yellow 10/30/2023 5:39 AM EDT LABORATORY [facility] Clarity, Urine Clear Clear 10/30/2023 5:39 AM EDT LAB[facility]ATORY [facility] Glucose, Urine Negative Negative mg/dL 10/30/2023 5:39 AM EDT LAB[facility]ORY [facility] Bilirubin, Urine Negative Negative 10/30/2023 5:39 AM EDT LAB[facility]ORY [facility] Ketone, Urine Negative Negative mg/dL 10/30/2023 5:39 AM EDT LAB[facility]ATORY [facility] Specific [place], Urine 1.021 1.003 - 1.030 10/30/2023 5:39 AM EDT LAB[facility]ORY [facility] Blood, Urine Negative Negative 10/30/2023 5:39 AM EDT LAB[facility]ATORY [facility] pH, Urine 6.5 5.0 - 7.5 Units 10/30/2023 5:39 AM EDT LAB[facility]ORY [facility] Protein, Urine Negative Negative mg/dL 10/30/2023 5:39 AM EDT LAB[facility]ATORY [facility] Urobilinogen, Urine Normal Normal mg/dL 10/30/2023 5:39 AM EDT LAB[facility] Nitrite, Urine Negative Negative 10/30/2023 5:39 AM EDT LAB[facility]ATORY [facility] Esterase, Urine Negative Negative 5:39 AM EDT LAB[facility]ATORY [facility] Comment, Urine 10/30/2023 5:39 AM EDT LAB[facility]ATORY [facility] Comment:Screen negative - Mi croscopic not performed. Urine Non-blood Collection / Unknown 10/30/2023 5:22 AM EDT 10/30/2023 5:29 AM EDT Maria G Titus MD LAB URINE ORDERABLES LABORATORY [facility] [address] [place] [address] * CTA NECK (10/29/2023 6:33 PM EDT) Anatomical Region Laterality Modality Neck, Head, Cspine, Spine Comput ed Tomography 10/29/2023 6:44 PM EDT Impressions 10/29/2023 6:42 PM EDT IMPRESSION: 1. Small right posterior scalp hematoma. Unchanged small right parafalcine subdural hemorrhage without local mass effect or interval new hemorrhage. 2. No evidence of acute blunt cerebrovascular injury. 3. Multifocal atherosclerotic plaque most significant of the right cervical carotid bifurcations resulting in approximately 50% stenosis of the proximal right ICA. 4. Degenerative changes of the cervical spine, most significant at C5-C6 with [id number] spinal canal stenosis. 5. Dilation of the lateral and, to a lesser extent, the 3rd ventricles disproportionate to the degree of cerebral volume loss, similar to prior examination. Although nonspecific, findings can be seen with normal pressure hydrocephalus in appropriate clinical setting. Narrative 10/29/2023 6:42 PM EDT EXAM: CT HEAD/BRAIN WO CONTRAST; CTA NECK - 10/29/2023 HISTORY: repeat CTH; trauma TECHNIQUE: CT scan of the head was performed without intravenous contrast. Subsequently,CT angiogram of the neck was performed following dynamic intravenous bolus contrast administration. 3D/MIP reformatted images are provided. COMPARISON: MRI brain dated 05/23/2022, CT head dated 10/29/2023. FINDINGS: HEAD: Small right posterior scalp hematoma is noted. Unchanged small right parafalcine subdural hemorrhage without local mass effect or interval new hemorrhage. Dilation of the lateral and, to a lesser extent, the 3rd ventricles disproportionate to the degree of cerebral volume loss, similar to prior examination. Patchy hypodensities in the periventricular and deep cerebral white matter are nonspecific, but most commonly represent chronic microvascular ischemic changes. Intracranial vascular calcifications are noted. Minimal mucosal thickening is noted in the paranasal sinuses. The mastoid air cells are clear. CTA NECK: There is no evidence of acute blunt cerebrovascular injury. Multifocal atherosclerotic plaque most significant of the right cervical carotid bifurcations resulting in approximately 50% stenosis of the proximal right ICA. Also noted is retropharyngeal course of the right internal carotid artery. The vertebral arteries are patent throughout the neck. Vascular calcifications involving the cavernous and supraclinoid segments of the internal carotid arteries without significant stenosis. There is no significant intracranial stenosis or large vessel occlusion. The right P1 segment is hypoplastic with persistent origin of the posterior cerebral artery. Heterogeneous density of the thyroid gland with the larger nodule measuring up to 2.0 cm at the right thyroid lobe. Degenerative changes of the cervical spine are noted, including moderate to severe spinal canal stenosis at C5-C6. Procedure Note Ly, Korin Valerie Gracia, DO - 10/29/2023 EXAM: CT HEAD/BRAIN WO CONTRAST; CTA NECK - 10/29/2023 HISTORY: repeat CTH; trauma TECHNIQUE: CT scan of the head was performed without intravenous contrast. Subsequently,CT angiogram of the neck was performed following dynamicintravenous bolus contrast administration. 3D/MIP reformatted images areprovided. COMPARISON: MRI brain dated 05/23/2022, CT head dated 10/29/2023. FINDINGS: HEAD: Small right posterior scalp hematoma is noted. Unchanged small rightparafalcine subdural hemorrhage without local mass effect or interval newhemorrhage. Dilation of the lateral and, to a lesser extent, the 3rd ventriclesdisproportionate to the degree of cerebral volume loss, similar to priorexamination. Patchy hypodensities in the periventricular and deep cerebralwhite matter are nonspecific, but most commonly represent chronicmicrovascular ischemic changes. Intracranial vascular calcifications arenoted. Minimal mucosal thickening is noted in the paranasal sinuses. The mastoidair cells are clear. CTA NECK: There is no evidence of acute blunt cerebrovascular injury. Multifocal atherosclerotic plaque most significant of the right cervicalcarotid bifurcations resulting in approximately 50% stenosis of theproximal right ICA. Also noted is retropharyngeal course of the rightinternal carotid artery. The vertebral arteries are patent throughout theneck. Vascular calcifications involving the cavernous and supraclinoid segmentsof the internal carotid arteries without significant stenosis. There is nosignificant intracranial stenosis or large vessel occlusion. The right P1 segment is hypoplastic with persistent origin of theposterior cerebral artery. Heterogeneous density of the thyroid gland with the larger nodulemeasuring up to 2.0 cm at the right thyroid lobe. Degenerative changes ofthe cervical spine are noted, including moderate to severe spinal canalstenosis at C5-C6. IMPRESSION IMPRESSION: 1. Small right posterior scalp hematoma. Unchanged small rightparafalcine subdural hemorrhage without local mass effect or interval newhemorrhage. 2. No evidence of acute blunt cerebrovascular injury. 3. Multifocal atherosclerotic plaque most significant of the rightcervical carotid bifurcations resulting in approximately 50% stenosis ofthe proximal right ICA. 4. Degenerative changes of the cervical spine, most significant at C5-C6with [id number] spinal canal stenosis. 5. Dilation of the lateral and, to a lesser extent, the 3rd ventriclesdisproportionate to the degree of cerebral volume loss, similar to priorexamination. Although nonspecific, findings can be seen with normalpressure hydrocephalus in appropriate clinical setting. Gigi Rios DO RAD CT * CT HEAD/BRAIN WO CONTRAST (10/29/2023 6:33 PM EDT) Anatomical Region Laterality Modality Head Computed Tomogra phy 10/29/2023 6:44 PM EDT Impressions 10/29/2023 6:42 PM EDT IMPRESSION: 1. Small right posterior scalp hematoma. Unchanged small right parafalcine subdural hemorrhage without local mass effect or interval new hemorrhage. 2. No evidence of acute blunt cerebrovascular injury. 3. Multifocal atherosclerotic plaque most significant of the right cervical carotid bifurcations resulting in approximately 50% stenosis of the proximal right ICA. 4. Degenerative changes of the cervical spine, most significant at C5-C6 with [id number] spinal canal stenosis. 5. Dilation of the lateral and, to a lesser extent, the 3rd ventricles disproportionate to the degree of cerebral volume loss, similar to prior examination. Although nonspecific, findings can be seen with normal pressure hydrocephalus in appropriate clinical setting. Narrative 10/29/2023 6:42 PM EDT EXAM: CT HEAD/BRAIN WO CONTRAST; CTA NECK - 10/29/2023 HISTORY: repeat CTH; trauma TECHNIQUE: CT scan of the head was performed without intravenous contrast. Subsequently,CT angiogram of the neck was performed following dynamic intravenous bolus contrast administration. 3D/MIP reformatted images are provided. COMPARISON: MRI brain dated 05/23/2022, CT head dated 10/29/2023. FINDINGS: HEAD: Small right posterior scalp hematoma is noted. Unchanged small right parafalcine subdural hemorrhage without local mass effect or interval new hemorrhage. Dilation of the lateral and, to a lesser extent, the 3rd ventricles disproportionate to the degree of cerebral volume loss, similar to prior examination. Patchy hypodensities in the periventricular and deep cerebral white matter are nonspecific, but most commonly represent chronic microvascular ischemic changes. Intracranial vascular calcifications are noted. Minimal mucosal thickening is noted in the paranasal sinuses. The mastoid air cells are clear. CTA NECK: There is no evidence of acute blunt cerebrovascular injury. Multifocal atherosclerotic plaque most significant of the right cervical carotid bifurcations resulting in approximately 50% stenosis of the proximal right ICA. Also noted is retropharyngeal course of the right internal carotid artery. The vertebral arteries are patent throughout the neck. Vascular calcifications involving the cavernous and supraclinoid segments of the internal carotid arteries without significant stenosis. There is no significant intracranial stenosis or large vessel occlusion. The right P1 segment is hypoplastic with persistent origin of the posterior cerebral artery. Heterogeneous density of the thyroid gland with the larger nodule measuring up to 2.0 cm at the right thyroid lobe. Degenerative changes of the cervical spine are noted, including moderate to severe spinal canal stenosis at C5-C6. Procedure Note Korin Silva Gracia, DO - 10/29/2023 EXAM: CT HEAD/BRAIN WO CONTRAST; CTA NECK - 10/29/2023 HISTORY: repeat CTH; trauma TECHNIQUE: CT scan of the head was performed without intravenous contrast. Subsequently,CT angiogram of the neck was performed following dynamicintravenous bolus contrast administration. 3D/MIP reformatted images areprovided. COMPARISON: MRI brain dated 05/23/2022, CT head dated 10/29/2023. FINDINGS: HEAD: Small right posterior scalp hematoma is noted. Unchanged small rightparafalcine subdural hemorrhage without local mass effect or interval newhemorrhage. Dilation of the lateral and, to a lesser extent, the 3rd ventriclesdisproportionate to the degree of cerebral volume loss, similar to priorexamination. Patchy hypodensities in the periventricular and deep cerebralwhite matter are nonspecific, but most commonly represent chronicmicrovascular ischemic changes. Intracranial vascular calcifications arenoted. Minimal mucosal thickening is noted in the paranasal sinuses. The mastoidair cells are clear. CTA NECK: There is no evidence of acute blunt cerebrovascular injury. Multifocal atherosclerotic plaque most significant of the right cervicalcarotid bifurcations resulting in approximately 50% stenosis of theproximal right ICA. Also noted is retropharyngeal course of the rightinternal carotid artery. The vertebral arteries are patent throughout theneck. Vascular calcifications involving the cavernous and supraclinoid segmentsof the internal carotid arteries without significant stenosis. There is nosignificant intracranial stenosis or large vessel occlusion. The right P1 segment is hypoplastic with persistent origin of theposterior cerebral artery. Heterogeneous density of the thyroid gland with the larger nodulemeasuring up to 2.0 cm at the right thyroid lobe. Degenerative changes ofthe cervical spine are noted, including moderate to severe spinal canalstenosis at C5-C6. IMPRESSION IMPRESSION: 1. Small right posterior scalp hematoma. Unchanged small rightparafalcine subdural hemorrhage without local mass effect or interval newhemorrhage. 2. No evidence of acute blunt cerebrovascular injury. 3. Multifocal atherosclerotic plaque most significant of the rightcervical carotid bifurcations resulting in approximately 50% stenosis ofthe proximal right ICA. 4. Degenerative changes of the cervical spine, most significant at C5-C6with [id number] spinal canal stenosis. 5. Dilation of the lateral and, to a lesser extent, the 3rd ventriclesdisproportionate to the degree of cerebral volume loss, similar to priorexamination. Although nonspecific, findings can be seen with normalpressure hydrocephalus in appropriate clinical setting. Christopher Vogel PA-C RAD CT * RADIOLOGY EXAM - CT (IMAGES ONLY, NO REPORT) (10/29/2023 3:00 PM EDT) Narrative Scheduling, Silent - 11/04/2023 7:14 AM EDT This is an imaging study not interpreted or resulted by a [employer] or [employer] contracted radiologist. Alesha Mccormack MD RAD CT * RADIOLOGY EXAM - CT (IMAGES ONLY, NO REPORT) (10/29/2023 3:00 PM EDT) Narrative Scheduling, Silent - 11/04/2023 7:14 AM EDT This is an imaging study not interpreted or resulted by a [facility] or [employer] contracted radiologist. Alesha Mccormack MD RAD CT * RADIOLOGY EXAM - CT (IMAGES ONLY, NO REPORT) (10/29/2023 3:00 PM EDT) Narrative Scheduling, Silent - 11/04/2023 7:14 AM EDT This is an imaging study not interpreted or resulted by a [facility] or [facility] contracted radiologist. Alesha Mccormack MD RAD CT * CT CHEST WO CONTRAST (10/29/2023 2:13 PM EDT) Anatomical Region Laterality Modality Chest, Body, Cardio Computed Jhonny ography 10/29/2023 2:26 PM EDT Impressions 10/29/2023 2:31 PM EDT IMPRESSION: 1. Mild buckling of the anterior right 6th and 7th rib, age indeterminate and favored chronic, correlate with point tenderness on physical exam. No other traumatic injuries of chest. 2. Bilateral thyroid nodules, may obtain dedicated thyroid ultrasound as outpatient and as clinically indicated. I have personally reviewed this examination and agree with the resident/fellow physician's interpretation. Narrative 10/29/2023 2:31 PM EDT EXAM EXAM: CT CHEST WO CONTRAST DATE and TIME: 10/29/2023 2:13 pm HISTORY CLINICAL INFORMATION: trauma TECHNIQUE Noncontrast CT of the chest was performed with thin section collimation. COMPARISON None. FINDINGS LUNGS/AIRWAYS: Moderate emphysema. PLEURA: Within normal limits. CARDIOVASCULAR: The heart appears normal size. Atherosclerotic calcifications of the aorta and coronary arteries. No pericardial effusion. LYMPH NODES: Within normal limits. THYROID: Bilateral thyroid nodules. ESOPHAGUS: Normally decompressed. UPPER ABDOMEN: 5 cm hiatal hernia. Small calcified gallstone without evidence of acute cholecystitis. SOFT TISSUES: Within normal limits. BONES: Mild buckling of the anterior right 6th and 7th rib, age indeterminate and likely chronic. No acute osseous abnormality. Procedure Note Grant Ryan, - 10/29/2023 EXAM EXAM: CT CHEST WO CONTRAST DATE and TIME: 10/29/2023 2:13 pm HISTORY CLINICAL INFORMATION: trauma TECHNIQUE Noncontrast CT of the chest was performed with thin section collimation. COMPARISON None. FINDINGS LUNGS/AIRWAYS: Moderate emphysema. PLEURA: Within normal limits. CARDIOVASCULAR: The heart appears normal size. Atheroscleroticcalcifications of the aorta and coronary arteries. No pericardialeffusion. LYMPH NODES: Within normal limits. THYROID: Bilateral thyroid nodules. ESOPHAGUS: Normally decompressed. UPPER ABDOMEN: 5 cm hiatal hernia. Small calcified gallstone withoutevidence of acute cholecystitis. SOFT TISSUES: Within normal limits. BONES: Mild buckling of the anterior right 6th and 7th rib, ageindeterminate and likely chronic. No acute osseous abnormality. IMPRESSION IMPRESSION: 1. Mild buckling of the anterior right 6th and 7th rib, age indeterminateand favored chronic, correlate with point tenderness on physical exam. Noother traumatic injuries of chest. 2. Bilateral thyroid nodules, may obtain dedicated thyroid ultrasound asoutpatient and as clinically indicated. I have personally reviewed this examination and agree with the resident/fellow physician's interpretation. Alesha Mccormack MD RAD CT * XR CHEST 1 VIEW (10/29/2023 2:06 PM EDT) Anatomical Region Laterality Modality Chest Computed Radiogr aphy 10/29/2023 2:15 PM EDT Impressions 10/29/2023 2:13 PM EDT IMPRESSION Hypoventilatory changes. No sizable pneumothorax. Narrative 10/29/2023 2:13 PM EDT EXAM XR CHEST 1 VIEW - 10/29/2023 2:06 pm HISTORY trauma COMPARISON 10/04/2023 radiograph, outside CT 10/29/2023 TECHNIQUE Frontal view of the chest. FINDINGS Support apparatus: None. Left basilar atelectasis. Bronchovascular crowding. No sizable pneumothorax or pleural effusion. Cardiomediastinal silhouette and pulmonary vasculature likely within normal limits for technique. Procedure Note Haseeb Palma II, MD - 10/29/2023 EXAM XR CHEST 1 VIEW - 10/29/2023 2:06 pm HISTORY trauma COMPARISON 10/04/2023 radiograph, outside CT 10/29/2023 TECHNIQUE Frontal view of the chest. FINDINGS Support apparatus: None. Left basilar atelectasis. Bronchovascular crowding. No sizablepneumothorax or pleural effusion. Cardiomediastinal silhouette andpulmonary vasculature likely within normal limits for technique. IMPRESSION IMPRESSION Hypoventilatory changes. No sizable pneumothorax. Shelton Metcalf MD RADIOLOGY ([facility]) * ABO/RH (10/29/2023 2:04 PM EDT) ABO O 10/29/2023 3:30 PM EDT LABORATORY C BLOOD BANK Rh Positive 10/29/2023 3:30 PM EDT LABORATORY C BLOOD BANK Blood Venous blood specimen / Unknown Venipuncture / Unknown 10/29/2023 2:04 PM EDT 10/29/2023 2:09 PM EDT Maria G Titus MD LAB BLOOD BANK TEST ORDERABLES Performing Organization Address City/[facility]/ZIP Co de Phone Number LABORATORY [facility] BLOOD BANK [address] [place] [address] * TYPE AND SCREEN (10/29/2023 2:04 PM EDT) ABO O 10/29/2023 3:13 PM EDT LABORATORY [facility] BLOOD BANK Rh Positive 10/29/2023 3:13 PM EDT LABORATORY [facility] BLOOD BANK Red Blood Cell Antibody Screen Negative 10/29/2023 3:13 PM EDT LABORATORY [facility] BLOOD BANK Specimen Expiration Date 11/01/2023 23:59 10/29/2023 3:13 PM EDT LABORATORY [facility] BLOOD BANK Blood Venous blood specimen / Unknown Venipuncture / Unknown 10/29/2023 2:04 PM EDT 10/29/2023 2:09 PM EDT Maria G Titus MD LAB BLOOD BANK TEST ORDERABLES LABORATORY [facility] BLOOD BANK [address] [place] [address] * ETHANOL, MEDICAL (10/29/2023 2:04 PM EDT) Pathologist [facility] ETHANOL, MEDICAL Negative Negative 10/29/2023 2:51 PM EDT LABORATORY [facility] Blood Venous blood specimen / Unknown Venipuncture / Unknown 10/29/2023 2:04 PM EDT 10/29/2023 2:09 PM EDT Maria G Titus MD LAB BLOOD ORDERABLES LABORATORY [facility] [address] [place] [address] * (ABNORMAL) BASIC METABOLIC PANEL (10/29/2023 2:04 PM EDT) BUN 11 6 - 20 mg/dL 10/29/2023 2:27 PM EDT LABORATORY [facility] CREATININE 0.6 0.5 - 1.0 mg/dL 10/29/2023 2:27 PM EDT LABORATORY C EGFR 90 >=60 mL/min 10/29/2023 2:27 PM EDT LABORATORY C Comment:eGFR is calculated b ased on the CKD-EPI 2020 equation. SODIUM 135 135 - 146 mmol/L 10/29/2023 2:27 PM EDT LABORATORY C POTASSIUM 4.1 3.5 - 5.1 mmol/L 10/29/2023 2:27 PM EDT LABORATORY C CHLORIDE 103 98 - 107 mmol/L 10/29/2023 2:27 PM EDT LABORATORY C CO2 24 22 - 32 mmol/L 10/29/2023 2:27 PM EDT LABORATORY C ANION GAP 8 7 - 15 mmol/L 10/29/2023 2:27 PM EDT LABORATORY [facility] GLUCOSE 127(H) 70 - 120 mg/dL 10/29/2023 2:27 PM EDT LABORATORY C CALCIUM 9.1 8.4 - 10.2 mg/dL 10/29/2023 2:27 PM EDT LABORATORY [facility] Blood Venous blood specimen / Unknown Venipuncture / Unknown 10/29/2023 2:04 PM EDT 10/29/2023 2:09 PM EDT Maria G Titus MD LAB BLOOD ORDERABLES LABORATORY [facility] [address] [place] [address] * AST (10/29/2023 2:04 PM EDT) Pathologist [facility] AST 18 10 - 35 U/L 10/29/2023 2:27 PM EDT LABORATORY [facility] Blood Venous blood specimen / Unknown Venipuncture / Unknown 10/29/2023 2:04 PM EDT 10/29/2023 2:09 PM EDT Maria G Titus MD LAB BLOOD ORDERABLES Performing Organization Address [facility] Co de Phone Number LABORATORY [address] [address] * APTT (10/29/2023 2:04 PM EDT) Pathologist [facility] aPTT 27 21 - 38 seconds 10/29/2023 2:43 PM EDT LABORATORY [facility] Blood Venous blood specimen / Unknown Venipuncture / Unknown 10/29/2023 2:04 PM EDT 10/29/2023 2:09 PM EDT Narrative LABORATORY [facility] - 10/29/2023 2:43 PM EDT Anticoagulation may affect testing. Refer to [employer] Test Catalog for a list of effects. Maria G Titus MD LAB BLOOD ORDERABLES Performing Organization Address [facility] Co de Phone Number LABORATORY [address] [address] * PT INR (10/29/2023 2:04 PM EDT) Pathologist [facility] Prothrombin Time 14.7 11.6 - 15.2 seconds 10/29/2023 2:42 PM EDT LABORATORY [facility] INR 1.2 0.8 - 1.2 10/29/2023 2:42 PM EDT LABORATORY [facility] Blood Venous blood specimen / Unknown Venipuncture / Unknown 10/29/2023 2:04 PM EDT 10/29/2023 2:09 PM EDT Narrative LABORATORY [facility] - 10/29/2023 2:42 PM EDT Warfarin Therapy INR: 2.0-3.0 conventional anticoagulation INR: 2.5-3.5 high intensity anticoagulation Maria G Titus MD LAB BLOOD ORDERABLES LABORATORY [facility] [address] [place] [address] * (ABNORMAL) DIFFERENTIAL, AUTOMATED (10/29/2023 2:03 PM EDT) WBC 20.40(H) 4.00 - 10.80 K/uL 10/29/2023 2:17 PM EDT LABORATORY [facility] Neutrophils % 81.3(H) 40.0 - 75.0 % 10/29/2023 2:17 PM EDT LABORATORY [facility] Lymphocytes % 10.3(L) 18.0 - 42.0 % 10/29/2023 2:17 PM EDT LAB[facility]ATORY [facility] Monocytes % 6.4 1.0 - 11.0 % 10/29/2023 2:17 PM EDT LAB[facility]ATORY [facility] Eosinophils % 0.3 0.0 - 6.0 % 10/29/2023 2:17 PM EDT LAB[facility]ATORY [facility] Basophils % 0.4 0.0 - 2.0 % 10/29/2023 2:17 PM EDT LAB[facility]ATORY [facility] Immature Granulocytes % 1.3 0.0 - 2.0 % 10/29/2023 2:17 PM EDT LABORATORY [facility] Absolute Neutrophils 16.58(H) 1.80 - 7.70 K/uL 10/29/2023 2:17 PM EDT LAB[facility]ATORY [facility] Absolute Lymphocytes 2.10 1.00 - 4.80 K/ul 10/29/2023 2:17 PM EDT LABORATORY [facility] Absolute Monocytes 1.30(H) 0.00 - 1.10 K/uL 10/29/2023 2:17 PM EDT LABORATORY [facility] Absolute Eosinophils 0.07 0.00 - 0.70 K/uL 10/29/2023 2:17 PM EDT LAB[facility]ATORY [facility] Absolute Basophils 0.09 0.00 - 0.20 K/uL 10/29/2023 2:17 PM EDT LABORATORY [facility] Absolute Immature Granulocytes 0.26(H) 0.00 - 0.20 K/uL 10/29/2023 2:17 PM EDT LAB[facility]ATORY [facility] Blood Venous blood specimen / Unknown Venipuncture / Unknown 10/29/2023 2:03 PM EDT 10/29/2023 2:09 PM EDT Maria G Titus MD LAB BLOOD ORDERABLES LAB[facility]ATORY [facility] [address] [place] [address] * (ABNORMAL) CBC (10/29/2023 2:03 PM EDT) WBC 20.40(H) 4.00 - 10.80 K/uL 10/29/2023 2:17 PM EDT LAB[facility]ATORY [facility] RBC 4.75 3.85 - 5.15 M/uL 10/29/2023 2:17 PM EDT LAB[facility]ATORY [facility] HGB 13.6 12.0 - 15.3 g/dL 10/29/2023 2:17 PM EDT LAB[facility]ORY [facility] HCT 41.8 36.0 - 45.2 % 10/29/2023 2:17 PM EDT LAB[facility]ATORY [facility] MCV 88.0 81.5 - 97.5 fL 10/29/2023 2:17 PM EDT LAB[facility]ATORY [facility] MCH 28.6 27.0 - 34.0 pg 10/29/2023 2:17 PM EDT LAB[facility]ATORY [facility] MCHC 32.5 32.0 - 36.0 g/dL 10/29/2023 2:17 PM EDT LAB[facility]ORY [facility] RDW 15.3 11.5 - 15.5 % 10/29/2023 2:17 PM EDT LAB[facility]ATORY [facility] PLT 245 140 - 400 K/uL 10/29/2023 2:17 PM EDT LAB[facility]ORY [facility] MPV 9.2 6.6 - 11.1 fL 10/29/2023 2:17 PM EDT LAB[facility]ATORY [facility] nRBCs 0 <=0 /100 WBCs 10/29/2023 2:17 PM EDT LAB[facility]ORY [facility] Blood Venous blood specimen / Unknown Venipuncture / Unknown 10/29/2023 2:03 PM EDT 10/29/2023 2:09 PM EDT Maria G Titus MD LAB BLOOD ORDERABLES LAB[facility]ATORY [facility] [address] [place] [address] * LACTATE (10/29/2023 2:03 PM EDT) Lactate 1.3 0.4 - 2.0 mmol/L 10/29/2023 2:25 PM EDT LABORATORY [facility] Blood Venous blood specimen / Unknown Venipuncture / Unknown 10/29/2023 2:03 PM EDT 10/29/2023 2:09 PM EDT Maria G Titus MD LAB BLOOD ORDERABLES LABORATORY [facility] [address] [place] [address] documented in this encounter Visit Diagnoses Diagnosis SDH (subdural hematoma) (HCC)- Primary Subdural hemorrhage Trauma Injury, other and unspecified, unspecified site SDH (subdural hematoma) (HCC) Subdural hemorrhage Closed fracture of multiple ribs of right side, initial encounter Orthostasis Orthostatic hypotension Thyroid nodule Nontoxic uninodular goiter Colitis Other and unspecified noninfectious gastroenteritis and colitis Multiple fractures of ribs of right side Closed fracture of multiple ribs, unspecified documented in this encounter Administered Medications Inactive Administered Medications - up to 3 most recent administrations Medication Order MAR Action Action Date Dose Rate Site Acetaminophen (Tylenol) tab 975 mg 975 mg, Oral, Q8H, First dose on Mon10/29/23 at 1430, Until Discontinued, Maximum 4 g acetaminophen/day. Avoid in patients with severe hepatic impairment or severe active liver disease. Use for 5 days. Given 11/07/2023 6:08 AM EDT 975 mg Given 11/06/2023 9:01 PM EDT 975 mg Given 11/06/2023 2:26 PM EDT 975 mg amLODIPine (Norvasc) tab 5 mg 5 mg, Oral, Daily(AM), First dose on Mon10/30/23 at 0900, Until Discontinued Given 11/07/2023 8:03 AM EDT 5 mg Given 11/06/2023 9:34 AM EDT 5 mg Given 11/05/2023 8:44 AM EDT 5 mg atorvaSTATin (Lipitor) tab 10 mg 10 mg, Oral, Daily(AM), First dose on Mon10/30/23 at 0900, Until Discontinued Given 11/07/2023 8:03 AM EDT 10 mg Given 11/06/2023 9:34 AM EDT 10 mg Given 11/05/2023 8:44 AM EDT 10 mg Bisacodyl (Dulcolax) supp 10 mg 10 mg, Rectal, ONCE, On Mon11/03/23 at 0900, For 1 dose, If no BM Given 11/03/2023 9:13 AM EDT 10 mg Bisacodyl (Dulcolax) supp 10 mg 10 mg, Rectal, ONCE, On Mon11/07/23 at 0745, For 1 dose Given 11/07/2023 8:03 AM EDT 10 mg Carisoprodol (Soma) tab 175 mg 175 mg, Oral, Q6H PRN Muscle spasms, Starting on Mon10/29/23 at 1356, Until Mon11/01/23 at 1412 Given 10/31/2023 5:42 AM EDT 175 mg Given 10/30/2023 10:24 PM EDT 175 mg Cetirizine (ZyrTEC) tab 10 mg 10 mg, Oral, Daily(AM), First dose on Mon11/05/23 at 0900, Until Discontinued Given 11/07/2023 8:03 AM EDT 10 mg Given 11/06/2023 12:09 PM EDT 10 mg Given 11/05/2023 8:44 AM EDT 10 mg chlorhexidine gluconate cloth 2 % pad External, [id number], First dose on Mon10/30/23 at 1000, Until Discontinued, Applied to appropriate patients per industrial staff nurse's recommendations following daily care. May use more than one Pad (cloth/wipe) as needed to complete care. Given 10/30/2023 8:00 PM EDT ciprofloxacin (Cipro) tab 500 mg 500 mg, Oral, Q12H, First dose on Mon10/31/23 at 2100, Last dose on Mon11/04/23 at 0900, For 4 days, Hold antacids and iron for 3-4 hours before and after administration. Given 11/03/2023 11:10 AM E DT 500 mg Given 11/02/2023 7:48 PM EDT 500 mg Given 11/02/2023 9:17 AM EDT 500 mg Enoxaparin (Lovenox) inj 30 mg 30 mg (rounded from 30.7 mg = 0.5 mg/kg 61.4 kg), Subcutaneous, Q12H (0600,1800), First dose on [place] 11/05/23 at 1800, Until Discontinued, If patient is on warfarin, inform provider if daily INR value is 2 or greater! Given 11/07/2023 6:08 AM EDT 30 mg Abdom en Left Lower Given 11/06/2023 5:47 PM EDT 30 mg Ab domen Left Upper Given 11/06/2023 5:39 AM EDT 30 mg Ab domen Right Lower Famotidine (Pepcid) tab 20 mg 20 mg, Oral, HS, First dose on [place] 10/29/23 at 2200, Until Discontinued Given 11/06/2023 9:02 PM EDT 20 mg Given 11/05/2023 8:44 PM EDT 20 mg Given 11/04/2023 8:25 PM EDT 20 mg fluticasone Furoate (ARNUITY ellipta) 200 MCG/ACT inhaler 1 Puff 1 Puff, Inhalation, RESPQPM, First dose on [place] 10/29/23 at 2000, Until Discontinued, NURSING TO FOLLOW PATIENT WITH MDI/DPI ADMINISTRATION WASTE INFO: Return waste medication to pharmacy in zip lock bag - SP container. Given 11/06/2023 9:02 PM EDT 1 Puff Given 11/05/2023 8:44 PM EDT 1 Puff Given 11/04/2023 8:26 PM EDT 1 Puff hEParin inj 5,000 Units 5,000 Units, Subcutaneous, Q8H, First dose on [place] 10/29/23 at 2200, Until Discontinued Given 11/05/2023 6:30 AM EDT 5,000 Units Abdomen Left Lower Given 11/04/2023 8:25 PM EDT 5,000 Units A bdomen Right Lower Given 11/04/2023 1:13 PM EDT 5,000 Units A bdomen Left Lower Iopamidol (Isovue 370) inj 80 mL 80 mL, Intravenous, ONCE, On [place] 10/29/23 at 1915, For 1 dose, Radiology Medication Routing (Non-IR) Given 10/29/2023 7:15 PM EDT 60 mL levETIRAcetam (Keppra) 500 mg in 100 mL ivpb *LOCKED DOSE* 500 mg, IV Piggyback, BID (.AM/PM), 13 doses, First dose on Mon10/29/23 at 2100, Last dose on Mon11/04/23 at 2100, at 600 mL/hr Administer over 10 Minutes New Bag 10/30/2023 8:26 AM EDT 500 mg 600 mL/hr New Bag 10/29/2023 10:56 PM EDT 500 mg 600 mL/hr levETIRAcetam (Keppra) tab 500 mg 500 mg, Oral, BID (.AM/PM), First dose on Mon10/30/23 at 2100, Last dose on Mon11/05/23 at 0900, For 12 doses Given 11/05/2023 8:44 AM EDT 500 mg Given 11/04/2023 8:26 PM EDT 500 mg Given 11/04/2023 8:32 AM EDT 500 mg Lidocaine (Aspercreme) 4 % patch 1 Patch 1 Patch, Transdermal, Daily(AM), First dose on Mon11/01/23 at 0900, Until Discontinued, Apply patch for 12 hours then remove for 12 hours! Remove any Lidocaine patches the patient may currently be wearing prior to applying the new patch Patch Applied 11/07/2023 8:03 AM EDT 1 Patch Other-Specify Patch Applied 11/06/2023 9:34 AM EDT 1 Patch Other-Specify Patch Applied 11/05/2023 8:44 AM EDT 1 Patch Other-Specify melatonin tab 2 mg 2 mg, Oral, HS, First dose on Mon10/30/23 at 2200, Until Discontinued Given 11/06/2023 9:01 PM EDT 2 mg Given 11/05/2023 8:44 PM EDT 2 mg Given 11/04/2023 8:25 PM EDT 2 mg metroNIDAZOLE (Flagyl) tab 500 mg 500 mg, Oral, Q6H, First dose on Mon10/31/23 at 1800, Last dose on Mon11/04/23 at 1200, For 4 days Given 11/03/2023 5:15 AM EDT 500 mg Given 11/02/2023 10:57 PM EDT 500 mg Given 11/02/2023 11:57 AM EDT 500 mg montelukast (Singulair) tab 10 mg 10 mg, Oral, QHS, First dose on Mon10/29/23 at 2200, Until Discontinued Given 11/06/2023 9:02 PM EDT 10 mg Given 11/05/2023 8:44 PM EDT 10 mg Given 11/04/2023 8:25 PM EDT 10 mg NSS infusion Intravenous, at 50 mL/hr, CONTINUOUS, Starting on Mon10/29/23 at 1430, Until Mon10/30/23 at 1215 Rate Verify 10/30/2023 12:00 PM EDT 50 mL/hr Rate Verify 10/30/2023 11:00 AM EDT 50 mL/hr Rate Verify 10/30/2023 9:00 AM EDT 50 mL/hr ondansetron (Zofran) inj 4 mg 4 mg, IV Push, Q6H PRN Other, May use for nausea or vomiting if patient unable to take oral ondansetron, Starting on Mon10/29/23 at 1355, Until Mon11/07/23 at 1900 ondansetron ODT (Zofran) tab 4 mg 4 mg, On Tongue, Q6H PRN Nausea, Vomiting, Starting on Mon10/29/23 at 1355, Until Mon11/07/23 at 1900 Given 11/06/2023 4:26 PM EDT 4 mg Given 11/06/2023 4:36 AM EDT 4 mg Given 11/05/2023 6:29 AM EDT 4 mg oxyCODONE (Oxy IR) tab 5 mg 5 mg, Oral, Q4H PRN Pain, Severe, Starting on Mon10/30/23 at 1257, Until Mon11/01/23 at 1412 Given 11/01/2023 5: 56 AM EDT 5 mg Given 10/31/2023 6:06 PM EDT 5 mg Given 10/31/2023 1:53 AM EDT 5 mg pantoprazole (Protonix) tab 40 mg 40 mg, Oral, Daily(AM), First dose on Mon10/30/23 at 0900, Until Discontinued, This med should NOT be Crushed or Chewed Given 11/07/2023 8:03 AM EDT 40 mg Given 11/06/2023 9:34 AM EDT 40 mg Given 11/05/2023 8:44 AM EDT 40 mg Piperacillin-Tazobactam (Zosyn) 4.5 g in 100 mL NSS ivpb (FOUR hour infusion) IV Piggyback, 4.5 g, Q8HNOW, 15 doses, First dose on Mon10/29/23 at 1430, Last dose on Mon11/03/23 at 0630, Administer over 4 Hours, at 26.25 mL/hr Rate Verify 10/30/2023 6:00 PM EDT 1.125 g/hr 26.25 mL/hr New Bag 10/30/2023 4:26 PM EDT 4.5 g 26.25 mL/hr Rate Verify 10/30/2023 12:00 PM EDT 1.125 g/hr 26.25 mL/hr Piperacillin-Tazobactam (Zosyn) 4.5 g in 100 mL NSS ivpb (FOUR hour infusion) IV Piggyback, 4.5 g, Q8HNOW, 11 doses, First dose (after last modification) on Mon10/31/23 at 0000, Last dose on Mon11/03/23 at 0800, Administer over 4 Hours, at 26.25 mL/hr Restarted 10/31/2023 12:25 PM EDT 1.125 g/hr 26.25 mL/hr Rate Verify 10/31/2023 12:00 PM EDT 1.125 g/hr 26.25 mL/hr Restarted 10/31/2023 11:16 AM EDT 1.125 g/hr 26.25 mL/hr Polyethylene Glycol 3350 (Miralax) oral powder 17 g 17 g (1 Packet), Oral, Daily(AM), First dose on Mon11/02/23 at 1415, Until Discontinued, Mix in 8 oz of water, juice, soda, coffee, or tea. Given 11/07/2023 8:03 AM EDT 17 g Given 11/06/2023 9:34 AM EDT 17 g Given 11/05/2023 8:44 AM EDT 17 g potassium chloride ER tab 40 mEq 40 mEq, Oral, ONCE, On 10/30/23 at 1230, For 1 dose, This med should NOT be Crushed or Chewed Given 10/30/2023 12:25 PM EDT 40 mEq senna (Senokot) 2 Tablet 2 Tablet, Oral, BID (.AM/PM), First dose on Mon24 at 2100, Until Discontinued Given 11/07/2023 8:03 AM EDT 2 Tablets Given 11/06/2023 9:01 PM EDT 2 Tablets Given 11/06/2023 9:33 AM EDT 2 Tablets TRAUMA enoxaparin per pharmacy order Routine, Enoxaparin ordered for VTE prophylaxis for a TRAUMA patient. Follow appropriate dosing schedule and monitoring as directed by the [facility] Trauma VTE Prophylaxis guidelines. Nursing - no documentation of admin or addressed is required on this order! traZODone (Desyrel) tab 50 mg 50 mg, Oral, HS, First dose on 10/29/23 at 2200, Until Discontinued Given 11/06/2023 9:01 PM EDT 50 mg Given 11/05/2023 8:44 PM EDT 50 mg Given 11/04/2023 8:25 PM EDT 50 mg documented in this encounter Active and Recently Administered Medications Times are shown in EDT. Scheduled Medication Order 11/05/2023 11/06/2023 11/07/2023 Acetaminophen (Tylenol) tab 975 mg 975 mg, Oral, Q8H, First dose on 10/29/23 at 1430, Until Discontinued, Maximum 4 g acetaminophen/day. Avoid in patients with severe hepatic impairment or severe active liver disease. Use for 5 days. 0630 (Given - Provider: Julia Morales RN)1311 (Given - Provider: Sugar Vieyra RN)2044 (Given - Provider: Ngoc Saha RN) 0538 (Given - Provider: Ngoc Saha RN)1426 (Given - Provider: Tevin Delarosa RN)2101 (Given - Provider: Vince Butler, JOSE DANIEL) 0608 (Given - Provider: Vince Butler, JOSE DANIEL)1400 (Due) amLODIPine (Norvasc) tab 5 mg 5 mg, Oral, Daily(AM), First dose on Mon10/30/23 at 0900, Until Discontinued 0844 (Given - Provider: Puja Gonzalez LPN) 0934 (Given - Provider: Tevin Delarosa, JOSE DANIEL) 0803 (Given - Provider: Tevin Delarosa, JOSE DANIEL) atorvaSTATin (Lipitor) tab 10 mg 10 mg, Oral, Daily(AM), First dose on Mon10/30/23 at 0900, Until Discontinued 0844 (Given - Provider: Puja Gonzalez LPN) 0934 (Given - Provider: Tevin Delarosa RN) 08 (Given - Provider: Tevin Delarosa RN) Bisacodyl (Dulcolax) supp 10 mg (COMPLETED) 10 mg, Rectal, ONCE, On Mon11/07/23 at 0745, For 1 dose 08 (Given - Provider: Tevin Delarosa RN) Cetirizine (ZyrTEC) tab 10 mg 10 mg, Oral, Daily(AM), First dose on Mon11/05/23 at 0900, Until Discontinued 0844 (Given - Provider: Puja Gonzalez LPN) 1209 (Given - Provider: Tevin Delarosa, JOSE DANIEL) 08 (Given - Provider: Tevin Delarosa, JOSE DANIEL) Drug Level Check - Enoxaparin ONCE - TIMED LAB, 1 dose, First dose on Mon11/07/23 at 1000, Routine, Level is due to be drawn 4 hours after enoxaparin administered. Contact pharmacy for questions or if time changes. Samy as Order Check Addressed once lab level is drawn. 1000 (Order Check Addressed - Provider: Tevin Delarosa RN) Enoxaparin (Lovenox) inj 30 mg 30 mg (rounded from 30.7 mg = 0.5 mg/kg 61.4 kg), Subcutaneous, Q12H (0600,1800), First dose on Mon11/05/23 at 1800, Until Discontinued, If patient is on warfarin, inform provider if daily INR value is 2 or greater! 1738 (Given - Provider: Puja Gonzalez LPN) 0539 (Given - Provider: Ngoc Saha RN)1747 (Given - Provider: Tevin Delarosa, JOSE DANIEL) 0608 (Given - Provider: Vince Butler, JOSE DANIEL) Famotidine (Pepcid) tab 20 mg 20 mg, Oral, HS, First dose on 10/29/23 at 2200, Until Discontinued 2043 (Given - Provider: Ngoc Saha RN) 2101 (Given - Provider: Vince Butler, RN) fluticasone Furoate (ARNUITY ellipta) 200 MCG/ACT inhaler 1 Puff 1 Puff, Inhalation, RESPQPM, First dose on Mon10/29/23 at 2000, Until Discontinued, NURSING TO FOLLOW PATIENT WITH MDI/DPI ADMINISTRATION WASTE INFO: Return waste medication to pharmacy in zip lock bag - SP container. 2043 (Given - Provider: Ngoc Saha RN) 2101 (Given - Provider: Vince Butler, JOSE DANIEL) hEParin inj 5,000 Units (CANCELED) 5,000 Units, Subcutaneous, Q8H, First dose on Mon10/29/23 at 2200, Until Discontinued 629 (Given - Provider: Julia Morales RN) levETIRAcetam (Keppra) tab 500 mg (COMPLETED) 500 mg, Oral, BID (.AM/PM), First dose on Mon10/30/23 at 2100, Last dose on Mon11/05/23 at 0900, For 12 doses 0844 (Given - Provider: Puja Gonzalez LPN) Lidocaine (Aspercreme) 4 % patch 1 Patch 1 Patch, Transdermal, Daily(AM), First dose on Mon11/01/23 at 0900, Until Discontinued, Apply patch for 12 hours then remove for 12 hours! Remove any Lidocaine patches the patient may currently be wearing prior to applying the new patch 0844 (Patch Applied - Provider: Puja Gonzalez LPN - Comment: back of neck)2043 (Patch Removed - Provider: Ngoc Saha RN) 09 (Patch Applied - Provider: Tevin Delarosa RN - Comment: NECK)2133 (Patch Removed - Provider: Vince Butler RN) 08 (Patch Applied - Provider: Tevin Delarosa RN - Comment: back of neck)1500 (Due: Patch Removed - Provider: Discharge, Physician - Comment: Time automatically adjusted from order being discontinued) melatonin tab 2 mg 2 mg, Oral, HS, First dose on Mon10/30/23 at 2200, Until Discontinued 2043 (Given - Provider: Ngoc Saha RN) 2100 (Given - Provider: Vicne Butler, JOSE DANIEL) montelukast (Singulair) tab 10 mg 10 mg, Oral, QHS, First dose on Mon24 at 2200, Until Discontinued 2043 (Given - Provider: Ngoc Saha RN) 2101 (Given - Provider: Vince Butler, JOSE DANIEL) pantoprazole (Protonix) tab 40 mg 40 mg, Oral, Daily(AM), First dose on 10/30/23 at 0900, Until Discontinued, This med should NOT be Crushed or Chewed 0844 (Given - Provider: Puja Gonzalez LPN) 0934 (Given - Provider: Tevin Delarosa RN) 0803 (Given - Provider: Tevin Delarosa RN) Polyethylene Glycol 3350 (Miralax) oral powder 17 g 17 g (1 Packet), Oral, Daily(AM), First dose on Korin 11/02/23 at 1415, Until Discontinued, Mix in 8 oz of water, juice, soda, coffee, or tea. 0844 (Given - Provider: Puja Gonzalez LPN) 0934 (Given - Provider: Tevin Delarosa RN) 0803 (Given - Provider: Tevin Delarosa RN) senna (Senokot) 2 Tablet 2 Tablet, Oral, BID (.AM/PM), First dose on 11/05/23 at 2100, Until Discontinued 2043 (Given - Provider: Ngoc Saha RN) 0933 (Given - Provider: Tevin Delarosa, JOSE DANIEL)2100 (Given - Provider: Vince Butler, JOSE DANIEL) 08 (Given - Provider: Tevin Delarosa, JOSE DANIEL) TRAUMA enoxaparin per pharmacy order Routine, Enoxaparin ordered for VTE prophylaxis for a TRAUMA patient. Follow appropriate dosing schedule and monitoring as directed by the [facility] Trauma VTE Prophylaxis guidelines. Nursing - no documentation of admin or addressed is required on this order! traZODone (Desyrel) tab 50 mg 50 mg, Oral, HS, First dose on 10/29/23 at 2200, Until Discontinued 2043 (Given - Provider: Ngoc Saha RN) 2100 (Given - Provider: Vince Butler, JOSE DANIEL) PRN Medication Order 11/05/2023 11/06/2023 11/07/2023 albuterol (VENTOLIN HFA/PROVENTIL HFA) inhaler 1 Puff, Inhalation, Q4H PRN Dyspnea, Starting on 10/29/23 at 1357, Until Mon11/07/23 at 1900, Shake can for 10 seconds before each puff SEND INHALER WITH PATIENT! WASTE INFO ( IF NOT SENT HOME WITH PATIENT) : Return unused medication to pharmacy in zip lock bag for disposal into black container labeled SP. ondansetron (Zofran) inj 4 mg(Linked Group 1) 4 mg, IV Push, Q6H PRN Other, May use for nausea or vomiting if patient unable to take oral ondansetron, Starting on 10/29/23 at 1355, Until Mon11/07/23 at 1900 0629 (See Alternative - Provider: Julia Morales, JOSE DANIEL) 0436 (See Alternative - Provider: Kathy Ugalde, RN)1626 (See Alternative - Provider: Tevin Delarosa, RN) ondansetron ODT (Zofran) tab 4 mg(Linked Group 1) 4 mg, On Tongue, Q6H PRN Nausea, Vomiting, Starting on 10/29/23 at 1355, Until Mon11/07/23 at 1900 0629 (Given - Provider: Julia Morales, JOSE DANIEL) 0436 (Given - Provider: Kathy Ugalde, JOSE DANIEL)1626 (Given - Provider: Tevin Delarosa, RN) Linked Groups Order Group 1: ondansetron ODT (Zofran) tab 4 mgJump to med 4 mg, On Tongue, Q6H PRN Nausea, Vomiting, Starting on 10/29/23 at 1355, Until Mon11/07/23 at 1900 Or ondansetron (Zofran) inj 4 mgJump to med 4 mg, IV Push, Q6H PRN Other, May use for nausea or vomiting if patient unable to take oral ondansetron, Starting on 10/29/23 at 1355, Until Mon11/07/23 at 1900 documented in this encounter Advance Directives Documents on File Type Date Recorded 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 Care Teams Movie Extra Relationship Specialty Start Date End Date Kathy Sweeney MD [address] [facility] [place] [address] PCP - General Family Medicine 11/22/22 documented as of this encounter
--- OUTSIDE RECORDS SUMMARY | 2023-12-04 22:08 | External Medical Summary ---
Author Name Unknown Address Unknown Organization [id number]:[place] [facility] [place] [facility] [address] [place], [place] [address] Laboratory Report Ordering Provider Test Date Status SHEEBA WHARTON 11/06/2023 08:35:00 Final Observation Date Value Abnormality Reference (Units ) Status BUN 11/06/2023 08:35:00 13 6-20 (mg/dL) Final Creatinine 11/06/2023 08:35:00 0.7 0.5-1.0 (mg/dL) Final Glomerular filtration rate/1.73 sq M.predicted [Volume Rate/Area] in Serum, Plasma or Blood by Creatinine-based formula (CKD-EPI) 11/06/2023 08:35:00 83 >=60 (mL/min) Final eGFR is calculated based on the CKD-EPI 2020 equation. Sodium 11/06/2023 08:35:00 134 Below low normal 135 -146 (mmol/L) Final Potassium 11/06/2023 08:35:00 5.1 3.5-5.1 (m mol/L) Final Cl 11/06/2023 08:35:00 98 98-107 (mm ol/L) Final CO2 11/06/2023 08:35:00 25 22-32 (mmo l/L) Final Anion gap 11/06/2023 08:35:00 11 7-15 (mmol /L) Final Glucose 11/06/2023 08:35:00 134 Above high normal 70 -120 (mg/dL) Final Calcium 11/06/2023 08:35:00 10.3 Above high normal 8. 4-10.2 (mg/dL) Final Performing Location [place] [facility] [place] [address] [place] [address]
--- OUTSIDE RECORDS SUMMARY | 2023-12-04 22:08 | External Medical Summary ---
Author Name Unknown Address Unknown Organization [id number]:LABORATORY [facility] - [address] [place] [address] Laboratory Report Ordering Provider Test Date Status CELIA GRAY 11/14/2023 06:45:00 Final Observation Date Value Abnormality Reference (Units ) Status WBC, Total 11/14/2023 06:45:00 8.71 4.00-10.80 (K/uL) Final RBC 11/14/2023 06:45:00 4.74 3.85-5.15 (M/uL) Final Hemoglobin 11/14/2023 06:45:00 13.5 12.0-15.3 (g/dL) Final HCT 11/14/2023 06:45:00 42.0 36.0-45.2 (%) Final MCV 11/14/2023 06:45:00 88.6 81.5-97.5 (fL) Final MCH 11/14/2023 06:45:00 28.5 27.0-34.0 (pg) Final MCHC 11/14/2023 06:45:00 32.1 32.0-36.0 (g/dL) Final RDW 11/14/2023 06:45:00 15.9 11.5-15.5 (%) Final Platelets 11/14/2023 06:45:00 263 140-400 (K/uL) Final MPV 11/14/2023 06:45:00 9.1 6.6-11.1 (fL) Final Nucleated erythrocytes/100 leukocytes [Ratio] in Blood by Automated count 11/14/2023 06:45:00 0 <=0 (/100 WBCs) Final Performing Location LABORATORY [facility] - [address] [place] [address]
--- OUTSIDE RECORDS SUMMARY | 2023-12-04 22:08 | External Medical Summary ---
Author Name Unknown Address Unknown Organization K1F:LABORATORY [facility] - [address] [address] Laboratory Report Ordering Provider Test Date Status CELIA GRAY 11/21/2023 06:51:00 Final Observation Date Value Abnormality Reference (Units ) Status WBC, Total 11/21/2023 06:51:00 10.41 4.00-10.80 (K/uL) Final RBC 11/21/2023 06:51:00 5.12 3.85-5.15 (M/uL) Final Hemoglobin 11/21/2023 06:51:00 14.6 12.0-15.3 (g/dL) Final HCT 11/21/2023 06:51:00 45.1 36.0-45.2 (%) Final MCV 11/21/2023 06:51:00 88.1 81.5-97.5 (fL) Final MCH 11/21/2023 06:51:00 28.5 27.0-34.0 (pg) Final MCHC 11/21/2023 06:51:00 32.4 32.0-36.0 (g/dL) Final RDW 11/21/2023 06:51:00 15.5 11.5-15.5 (%) Final Platelets 11/21/2023 06:51:00 280 140-400 (K/uL) Final MPV 11/21/2023 06:51:00 8.9 6.6-11.1 (fL) Final Nucleated erythrocytes/100 leukocytes [Ratio] in Blood by Automated count 11/21/2023 06:51:00 0 <=0 (/100 WBCs) Final Performing Location LABORATORY [facility] - [address] [place] [address]
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
--- OUTSIDE RECORDS SUMMARY | 2023-12-04 22:08 | External Medical Summary ---
Author Name Unknown Address Unknown Organization K01:[place] [facility] [place] [address] [facility] [address] Laboratory Report Ordering Provider Test Date Status SHEEBA WHARTON 11/07/2023 08:51:00 Final Observation Date Value Abnormality Reference (Units ) Status WBC, Total 11/07/2023 08:51:00 12.79 Above high normal 4.00-10.80 (K/uL) Final RBC 11/07/2023 08:51:00 5.33 3.85-5.15 (M/uL) Final Hemoglobin 11/07/2023 08:51:00 15.0 12.0-15.3 (g/dL) Final HCT 11/07/2023 08:51:00 47.3 Above high normal 36.0-45.2 (%) Final MCV 11/07/2023 08:51:00 88.7 81.5-97.5 (fL) Final MCH 11/07/2023 08:51:00 28.1 27.0-34.0 (pg) Final MCHC 11/07/2023 08:51:00 31.7 32.0-36.0 (g/dL) Final RDW 11/07/2023 08:51:00 15.6 11.5-15.5 (%) Final Platelets 11/07/2023 08:51:00 344 140-400 (K/uL) Final MPV 11/07/2023 08:51:00 8.6 6.6-11.1 (fL) Final Nucleated erythrocytes/100 leukocytes [Ratio] in Blood by Automated count 11/07/2023 08:51:00 0 <=0 (/100 WBCs) Final Performing Location LABORATORY C - [address] [facility] [address]
--- OUTSIDE RECORDS SUMMARY | 2023-12-04 22:08 | External Medical Summary ---
Author Name Unknown Address Unknown Organization K1F:LABORATORY [facility] - [address] [address] Laboratory Report Ordering Provider Test Date Status CELIA GRAY 11/14/2023 06:45:00 Final Observation Date Value Abnormality Reference (Units ) Status BUN 11/14/2023 06:45:00 8 6-20 (mg/dL) Final Creatinine 11/14/2023 06:45:00 0.6 0.5-1.0 (mg/dL) Final Glomerular filtration rate/1.73 sq M.predicted [Volume Rate/Area] in Serum, Plasma or Blood by Creatinine-based formula (CKD-EPI) 11/14/2023 06:45:00 90 >=60 (mL/min) Final eGFR is calculated based on the CKD-EPI 2020 equation. Sodium 11/14/2023 06:45:00 139 135-146 (m mol/L) Final Potassium 11/14/2023 06:45:00 3.7 3.5-5.1 (m mol/L) Final Cl 11/14/2023 06:45:00 102 98-107 (mm ol/L) Final CO2 11/14/2023 06:45:00 24 22-32 (mmo l/L) Final Anion gap 11/14/2023 06:45:00 13 7-15 (mmol /L) Final Glucose 11/14/2023 06:45:00 89 70-120 (mg /dL) Final Calcium 11/14/2023 06:45:00 9.1 8.4-10.2 ( mg/dL) Final Performing Location LABORATORY [facility] - [address] [address]
--- OUTSIDE RECORDS SUMMARY | 2023-12-04 22:08 | External Medical Summary ---
Author Name Unknown Address Unknown Organization K01:LABORATORY [facility] [place] - [address] [place] [address] Laboratory Report Ordering Provider Test Date Status SHEEBA WHARTON 11/05/2023 04:28:00 Final Observation Date Value Abnormality Reference (Units ) Status BUN 11/05/2023 04:28:00 11 6-20 (mg/dL) Final Creatinine 11/05/2023 04:28:00 0.6 0.5-1.0 (mg/dL) Final Glomerular filtration rate/1.73 sq M.predicted [Volume Rate/Area] in Serum, Plasma or Blood by Creatinine-based formula (CKD-EPI) 11/05/2023 04:28:00 89 >=60 (mL/min) Final eGFR is calculated based on the CKD-EPI 2020 equation. Sodium 11/05/2023 04:28:00 135 135-146 (m mol/L) Final Potassium 11/05/2023 04:28:00 4.3 3.5-5.1 (m mol/L) Final Cl 11/05/2023 04:28:00 103 98-107 (mm ol/L) Final CO2 11/05/2023 04:28:00 19 Below low normal 22- 32 (mmol/L) Final Anion gap 11/05/2023 04:28:00 13 7-15 (mmol /L) Final Glucose 11/05/2023 04:28:00 133 Above high normal 70 -120 (mg/dL) Final Calcium 11/05/2023 04:28:00 9.7 8.4-10.2 ( mg/dL) Final Performing Location LABORATORY [facility] - [address] [place] [address]
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
--- OUTSIDE RECORDS SUMMARY | 2023-12-04 22:08 | External Medical Summary ---
Author Name Unknown Address Unknown Organization K01:LAB[facility]ATORY [facility] [place] [address] [facility] [address] Laboratory Report Ordering Provider Test Date Status SHEEBA WHARTON 11/05/2023 04:28:00 Final Observation Date Value Abnormality Reference (Units ) Status WBC, Total 11/05/2023 04:28:00 12.61 Above high normal 4.00-10.80 (K/uL) Final RBC 11/05/2023 04:28:00 4.97 3.85-5.15 (M/uL) Final Hemoglobin 11/05/2023 04:28:00 14.1 12.0-15.3 (g/dL) Final HCT 11/05/2023 04:28:00 44.8 36.0-45.2 (%) Final MCV 11/05/2023 04:28:00 90.1 81.5-97.5 (fL) Final MCH 11/05/2023 04:28:00 28.4 27.0-34.0 (pg) Final MCHC 11/05/2023 04:28:00 31.5 32.0-36.0 (g/dL) Final RDW 11/05/2023 04:28:00 15.5 11.5-15.5 (%) Final Platelets 11/05/2023 04:28:00 333 140-400 (K/uL) Final MPV 11/05/2023 04:28:00 8.6 6.6-11.1 (fL) Final Nucleated erythrocytes/100 leukocytes [Ratio] in Blood by Automated count 11/05/2023 04:28:00 0 <=0 (/100 WBCs) Final Performing Location [facility] - [address] [place] [address]
--- OUTSIDE RECORDS SUMMARY | 2023-12-04 22:08 | External Medical Summary ---
Author Name Unknown Address Unknown Organization [id number]:LABORATORY [facility] - [address] [place] [address] Laboratory Report Ordering Provider Test Date Status CELIA GRAY 11/14/2023 06:45:00 Final Observation Date Value Abnormality Reference (Units ) Status SYNC LEUKOCYTES IN BLOOD BY AUTOMATED COUNT 11/14/2023 06:45:00 8.71 4.00-10.80 (K/uL) Final Segs 11/14/2023 06:45:00 62.2 40.0-75.0 (%) Final Lymphs % 11/14/2023 06:45:00 24.1 18.0-42.0 (%) Final Monos 11/14/2023 06:45:00 10.6 1.0-11.0 (%) Final Eosinophils 11/14/2023 06:45:00 1.4 0.0-6.0 (%) Final Basos 11/14/2023 06:45:00 0.9 0.0-2.0 (%) Final Immature Granulocyte, Percent 11/14/2023 06:45:00 0.8 0.0-2.0 (%) Final Absolute Segs 11/14/2023 06:45:00 5.42 1.80-7.70 (K/uL) Final Lymphs, absolute 11/14/2023 06:45:00 2.10 1.00-4.80 (K/ul) Final Monos, Abs 11/14/2023 06:45:00 0.92 0.00-1.10 (K/uL) Final Eos, Abs 11/14/2023 06:45:00 0.12 0.00-0.70 (K/uL) Final Basos, Abs 11/14/2023 06:45:00 0.08 0.00-0.20 (K/uL) Final Immature Granulocytes, Number 11/14/2023 06:45:00 0.07 0.00-0.20 (K/uL) Final Performing Location LABORATORY [facility] - [address] [place] [address]
--- OUTSIDE RECORDS SUMMARY | 2023-12-04 22:08 | External Medical Summary ---
Author Name Unknown Address Unknown Organization [id number]:[place] [facility] [place] [facility] [address] [facility] [address] Laboratory Report Ordering Provider Test Date Status SHEEBA WHARTON 11/07/2023 08:51:00 Final Observation Date Value Abnormality Reference (Units ) Status BUN 11/07/2023 08:51:00 14 6-20 (mg/dL) Final Creatinine 11/07/2023 08:51:00 0.7 0.5-1.0 (mg/dL) Final Glomerular filtration rate/1.73 sq M.predicted [Volume Rate/Area] in Serum, Plasma or Blood by Creatinine-based formula (CKD-EPI) 11/07/2023 08:51:00 87 >=60 (mL/min) Final eGFR is calculated based on the CKD-EPI 2020 equation. Sodium 11/07/2023 08:51:00 134 Below low normal 135 -146 (mmol/L) Final Potassium 11/07/2023 08:51:00 4.0 3.5-5.1 (m mol/L) Final Cl 11/07/2023 08:51:00 99 98-107 (mm ol/L) Final CO2 11/07/2023 08:51:00 21 Below low normal 22- 32 (mmol/L) Final Anion gap 11/07/2023 08:51:00 14 7-15 (mmol /L) Final Glucose 11/07/2023 08:51:00 200 Above high normal 70 -120 (mg/dL) Final Calcium 11/07/2023 08:51:00 10.0 8.4-10.2 ( mg/dL) Final Performing Location [facility] [place] [address] [facility] [address]
--- OUTSIDE RECORDS SUMMARY | 2023-12-04 22:08 | External Medical Summary ---
Author Name Unknown Address Unknown Organization [id number]:[place] [facility] [place] [address] [facility] [address] Laboratory Report Ordering Provider Test Date Status SHEEBA WHARTON 11/04/2023 04:21:00 Final Observation Date Value Abnormality Reference (Units ) Status WBC, Total 11/04/2023 04:21:00 11.81 Above high normal 4.00-10.80 (K/uL) Final RBC 11/04/2023 04:21:00 4.64 3.85-5.15 (M/uL) Final Hemoglobin 11/04/2023 04:21:00 13.1 12.0-15.3 (g/dL) Final HCT 11/04/2023 04:21:00 40.5 36.0-45.2 (%) Final MCV 11/04/2023 04:21:00 87.3 81.5-97.5 (fL) Final MCH 11/04/2023 04:21:00 28.2 27.0-34.0 (pg) Final MCHC 11/04/2023 04:21:00 32.3 32.0-36.0 (g/dL) Final RDW 11/04/2023 04:21:00 15.6 11.5-15.5 (%) Final Platelets 11/04/2023 04:21:00 313 140-400 (K/uL) Final MPV 11/04/2023 04:21:00 8.9 6.6-11.1 (fL) Final Nucleated erythrocytes/100 leukocytes [Ratio] in Blood by Automated count 11/04/2023 04:21:00 0 <=0 (/100 WBCs) Final Performing Location [facility] - [address] [place] [address]
--- OUTSIDE RECORDS SUMMARY | 2023-12-04 22:08 | External Medical Summary ---
Author Name Unknown Address Unknown Organization [id number]:LABORATORY [facility] [place] - [address] [facility] [address] Laboratory Report Ordering Provider Test Date Status SHEEBA WHARTON 11/06/2023 08:35:00 Final Observation Date Value Abnormality Reference (Units ) Status WBC, Total 11/06/2023 08:35:00 12.07 Above high normal 4.00-10.80 (K/uL) Final RBC 11/06/2023 08:35:00 5.39 3.85-5.15 (M/uL) Final Hemoglobin 11/06/2023 08:35:00 15.3 12.0-15.3 (g/dL) Final HCT 11/06/2023 08:35:00 48.0 Above high normal 36.0-45.2 (%) Final MCV 11/06/2023 08:35:00 89.1 81.5-97.5 (fL) Final MCH 11/06/2023 08:35:00 28.4 27.0-34.0 (pg) Final MCHC 11/06/2023 08:35:00 31.9 32.0-36.0 (g/dL) Final RDW 11/06/2023 08:35:00 15.6 11.5-15.5 (%) Final Platelets 11/06/2023 08:35:00 342 140-400 (K/uL) Final MPV 11/06/2023 08:35:00 8.5 6.6-11.1 (fL) Final Nucleated erythrocytes/100 leukocytes [Ratio] in Blood by Automated count 11/06/2023 08:35:00 0 <=0 (/100 WBCs) Final Performing Location LABORATORY [facility] - [address] [facility] [address]
--- OUTSIDE RECORDS SUMMARY | 2023-12-04 22:08 | External Medical Summary ---
Author Name Unknown Address Unknown Organization K01:LABORATORY [facility] [place] - [address] [place] [address] Laboratory Report Ordering Provider Test Date Status SEHEBA WHARTON 11/04/2023 04:21:00 Final Observation Date Value Abnormality Reference (Units ) Status BUN 11/04/2023 04:21:00 9 6-20 (mg/dL) Final Creatinine 11/04/2023 04:21:00 0.6 0.5-1.0 (mg/dL) Final Glomerular filtration rate/1.73 sq M.predicted [Volume Rate/Area] in Serum, Plasma or Blood by Creatinine-based formula (CKD-EPI) 11/04/2023 04:21:00 89 >=60 (mL/min) Final eGFR is calculated based on the CKD-EPI 2020 equation. Sodium 11/04/2023 04:21:00 138 135-146 (m mol/L) Final Potassium 11/04/2023 04:21:00 4.0 3.5-5.1 (m mol/L) Final Cl 11/04/2023 04:21:00 105 98-107 (mm ol/L) Final CO2 11/04/2023 04:21:00 22 22-32 (mmo l/L) Final Anion gap 11/04/2023 04:21:00 11 7-15 (mmol /L) Final Glucose 11/04/2023 04:21:00 116 70-120 (mg /dL) Final Calcium 11/04/2023 04:21:00 9.6 8.4-10.2 ( mg/dL) Final Performing Location LABORATORY [facility] [place] - [address] [place] [address]
--- OUTSIDE RECORDS SUMMARY | 2023-12-04 22:09 | External Medical Summary | Summary of Care ---
Author Name Unknown Organization [facility] Address [address] [place] [address] Phone [phone] Care Team Providers Care Sales Representative Trainee Name Role Phone Kathy Sweeney MD Primary Care Provider [phone] Reason for Visit * Auth/Cert Specialty Diagnoses / Procedures Referred By Ester amanda Referred To Contact Diagnoses Trauma fall/subdural hemmorhage Alesha Mccormack MD [address] [place] [address] Emergency Medicine [facility] [address] [place] [address] Referral ID Status Reason Start Date Expiration Date Visits Re quested Visits Authorized [id number] Encounter Details Date Type Department Care Team (Latest Contact Info) Description 10/30/2023 1:49 PM EDT - 10/30/2023 11:59 PM EDT Hospital Encounter Cardiac Studies [facility] [address] [place] [address] Discharge Disposition: Home - Self Care Allergies Active Allergy Reactions Criticality Noted Date Comments Aspirin Anaphylaxis High 12/21/2016 Lip swelling Diphenhydramine Hcl Edema face/lips/tongue High /07/2010 Ibuprofen Edema face/lips/tongue High 10/08/2002 Penicillins Unknown 10/08/2002 Red Dye Edema face/lips/tongue,Hives High 05/23/2023 documented as of this encounter (statuses as of 10/31/2023) Medications Medication Sig Dispensed Refills Start Date [...] as of this encounter (statuses as of 10/31/2023) Active Problems Problem Noted Date Diagnosed Date SDH (subdural hematoma) 10/29/2023 Chest heaviness 10/11/2023 Altered mental status 10/11/2023 Incomplete bladder emptying 10/04/2023 Mild dementia 10/03/2023 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 Hyperparathyroidism, primary 11/12/2021 Mild mitral regurgitation 04/22/2020 [...] as of this encounter (statuses as of 10/31/2023) Resolved Problems Problem Noted Date Diagnosed Date Resolved Date Memory change 05/20/2022 10/03/2023 Colitis, acute 05/07/2022 05/20/2022 Sepsis without acute [...] as of this encounter (statuses as of 10/31/2023) Immunizations Name Administration Dates Next Due COVID-19 mRNA, LNP-s, No Pre serve, 2-Dose Series ([email or web address]) 04/21/2020,03/31/2020 Pneumococcal Conjugate Vacc, 13 Valent (Prevnar) [...] Description 11/13/2023 4:00 PM EDT Imaging Radiology [address] [place] [address] 12/22/2023 11:20 AM EST Office Visit Family Practice [facility] [address] [place] [address] Kathy Sweeney MD [address] [place] [address] 01/09/2024 10:00 AM EST Laboratory Laboratory [facility] [address] [place] [address] [facility] [place] [address] [address] [facility] [place] [address] 01/16/2024 12:30 PM EST Office Visit Hematology/Oncology [facility] [address] [place] [address] Bindu Jones MD [address] [place] [address] 01/29/2024 9:20 AM EST Office Visit Dermatology, [place] [address] [place] [address] Rola Lam PA-C [address] [place] [address] 03/21/2024 3:30 PM EST Office Visit Neurology [facility] [address] [facility] [place] [address] Abbie Arora PA-C [address] [place] [address] Health Maintenance Due Date Last Done Comments Adult Wellness Visit 09/20/2013 09/20/2012 *BISPHONATE OR OTHER ACCEPTABLE MEDICATION NEEDED FOR OSTEOPOROSIS (REFER TO SMARTSET #1146) 05/09/2022 Influenza Vaccine (FLU shot) (#1) 2023 11/22/2022, 11/12/2021, 10/13/2020, Additional history exists DXA Scan 11/11/2023 11/10/2021, 10/08, 07/27/2015, Additional history exists HbA1c 11/23/2023 11/22/2022, 08/2021, 10/13/2020, Additional history exists Depression Screening 06/28/2024 06/29/2023, 09/03/19 15 GFR 10/30/2024 10/31/2023, 10/08, 10/29/2023, Additional history exists Albumin/Creatinine Ratio 11/12/2024 11/12/2021, 06/06 Colonoscopy 07/08/2026 07/08/2021, 03/2021, 11/19/2015, Additional history exists DTap/Tdap Vaccines (2 - Td or Tdap) 11/07/2026 11/07/2016, 07/16/2010 Pneumococcal Vaccine: 65+ Years Completed 09/02/2014, 08/30/2010 Zoster Vaccines Completed 11/21/2019, 08/2019, 07/25/2007 COVID-19 Vaccine Discontinued 04/21/2020, 03/31/2020 VITAMIN D LEVEL ONCE IN A LIFETIME-USE SMARTSET# 44640 Completed 10/13/2020, 12/26/2019, 06/21/2018, Additional history exists [...] this encounter Medical Devices Implanted Type Area Chemist Food Device Identifier Shelf Expiration Date Model / Serial / Lot Alloderm 2x4 Sheet [id number] (8 Units) - [id number] Implanted:Qty : 8 on 11/15/2010 at OR [facility] Tissue - Human N/A: Esophagus [employer] 05/06/2012 [id number] / / [id number] documented as of this encounter Procedures Procedure Name Priority Date/Time Associated Diagnosis Comments ECHO, COMPLETE (2D), TRANS-THORACIC Routine 10/30/2023 2:47 PM EDT Orthostasis documented in this encounter Visit Diagnoses Diagnosis Chest heaviness- Primary Other chest pain Mild dementia, unspecified dementia type, unspecified whether behavioral, psychotic, or mood disturbance or anxiety (HCC) HTN, goal below 140/90 Unspecified essential hypertension Mild persistent asthma without complication Unspecified asthma Mild mitral regurgitation Mitral valve disorders documented in this encounter Administered Medications Inactive Administered Medications - up to 3 most recent administrations Medication Order MAR Action Action Date Dose Rate Site perflutren lipid microsphere inj SUSP 1.956 mg 1.956 mg, Intravenous, ONCE PRN Other, For Echo Only - Suboptimal Echo Images, Starting on Mon10/30/23 at 1417, Until Mon10/30/23 at 1616, For 2 hours, Administer IVP over 45 seconds, Cardiac Studies_HODHOV Given 10/30/2023 2:18 PM EDT 1.956 mg documented in this encounter Advance Directives Documents on File Type Date Recorded Patient Household Assistant Expl anation Advance Directives and Living Will 05/05/2020 ADVANCE DIRECTIVE / LIVING WILL Power of Can Reconditioner 05/05/2020 POWER OF A [employer] * [...] and were consensually agreed upon. Care Teams Sales Representative Trainee Relationship Specialty Start Date End Date Kathy Sweeney MD [address] [place] [address] PCP - General Family Medicine 11/22/22 documented as of this encounter
--- OUTSIDE RECORDS SUMMARY | 2023-12-04 22:09 | External Medical Summary ---
Author Name Unknown Address Unknown Organization K01:[place]ATORY [facility] [place] [address] [facility] [address] Laboratory Report Ordering Provider Test Date Status SHEEBA WHARTON 11/02/2023 08:33:00 Final Observation Date Value Abnormality Reference (Units ) Status WBC, Total 11/02/2023 08:33:00 8.19 4.00-10.80 (K/uL) Final RBC 11/02/2023 08:33:00 4.49 3.85-5.15 (M/uL) Final Hemoglobin 11/02/2023 08:33:00 13.4 12.0-15.3 (g/dL) Final HCT 11/02/2023 08:33:00 39.8 36.0-45.2 (%) Final MCV 11/02/2023 08:33:00 88.6 81.5-97.5 (fL) Final MCH 11/02/2023 08:33:00 29.8 27.0-34.0 (pg) Final MCHC 11/02/2023 08:33:00 33.7 32.0-36.0 (g/dL) Final RDW 11/02/2023 08:33:00 14.9 11.5-15.5 (%) Final Platelets 11/02/2023 08:33:00 294 140-400 (K/uL) Final MPV 11/02/2023 08:33:00 9.0 6.6-11.1 (fL) Final Nucleated erythrocytes/100 leukocytes [Ratio] in Blood by Automated count 11/02/2023 08:33:00 0 <=0 (/100 WBCs) Final Performing Location LABORATORY [facility] [place] - [address] [facility] [address]
--- OUTSIDE RECORDS SUMMARY | 2023-12-04 22:09 | External Medical Summary ---
Author Name Unknown Address Unknown Organization K01:[place]ATORY [facility] [place] [address] [place] [address] Laboratory Report Ordering Provider Test Date Status TRI SONG 10/31/2023 08:00:00 Final Observation Date Value Abnormality Reference (Units ) Status BUN 10/31/2023 08:00:00 9 6-20 (mg/dL) Final Creatinine 10/31/2023 08:00:00 0.7 0.5-1.0 (mg/dL) Final Glomerular filtration rate/1.73 sq M.predicted [Volume Rate/Area] in Serum, Plasma or Blood by Creatinine-based formula (CKD-EPI) 10/31/2023 08:00:00 86 >=60 (mL/min) Final eGFR is calculated based on the CKD-EPI 2020 equation. Sodium 10/31/2023 08:00:00 140 135-146 (m mol/L) Final Potassium 10/31/2023 08:00:00 4.2 3.5-5.1 (m mol/L) Final Cl 10/31/2023 08:00:00 106 98-107 (mm ol/L) Final CO2 10/31/2023 08:00:00 23 22-32 (mmo l/L) Final Anion gap 10/31/2023 08:00:00 11 7-15 (mmol /L) Final Glucose 10/31/2023 08:00:00 126 Above high normal 70 -120 (mg/dL) Final Calcium 10/31/2023 08:00:00 9.0 8.4-10.2 ( mg/dL) Final Performing Location LABORATORY [facility] [place] - [address] [place] [address]
--- OUTSIDE RECORDS SUMMARY | 2023-12-04 22:09 | External Medical Summary ---
Author Name Unknown Address Unknown Organization K01:[facility] - [address] [place] [address] Laboratory Report Ordering Provider Test Date Status TRI SONG 10/30/2023 06:18:00 Final Observation Date Value Abnormality Reference (Units ) Status Magnesium 10/30/2023 06:18:00 2.3 1.5-2.6 (m g/dL) Final Performing Location [facility] - [address] [facility] [address]
--- OUTSIDE RECORDS SUMMARY | 2023-12-04 22:09 | External Medical Summary ---
Author Name Unknown Address Unknown Organization K01:[place] [facility] [place] [address] [facility] [address] Laboratory Report Ordering Provider Test Date Status SHEEBA WHARTON 11/03/2023 05:06:00 Final Observation Date Value Abnormality Reference (Units ) Status WBC, Total 11/03/2023 05:06:00 9.94 4.00-10.80 (K/uL) Final RBC 11/03/2023 05:06:00 4.35 3.85-5.15 (M/uL) Final Hemoglobin 11/03/2023 05:06:00 12.6 12.0-15.3 (g/dL) Final HCT 11/03/2023 05:06:00 38.7 36.0-45.2 (%) Final MCV 11/03/2023 05:06:00 89.0 81.5-97.5 (fL) Final MCH 11/03/2023 05:06:00 29.0 27.0-34.0 (pg) Final MCHC 11/03/2023 05:06:00 32.6 32.0-36.0 (g/dL) Final RDW 11/03/2023 05:06:00 15.2 11.5-15.5 (%) Final Platelets 11/03/2023 05:06:00 278 140-400 (K/uL) Final MPV 11/03/2023 05:06:00 8.8 6.6-11.1 (fL) Final Nucleated erythrocytes/100 leukocytes [Ratio] in Blood by Automated count 11/03/2023 05:06:00 0 <=0 (/100 WBCs) Final Performing Location LABORATORY [facility] - [address] [place] [address]
--- OUTSIDE RECORDS SUMMARY | 2023-12-04 22:09 | External Medical Summary ---
Author Name Unknown Address Unknown Organization K01:[place] [facility] [place] [address] [place] [address] Laboratory Report Ordering Provider Test Date Status SHEEBA WHARTON 11/03/2023 05:06:00 Final Observation Date Value Abnormality Reference (Units ) Status BUN 11/03/2023 05:06:00 8 6-20 (mg/dL) Final Creatinine 11/03/2023 05:06:00 0.6 0.5-1.0 (mg/dL) Final Glomerular filtration rate/1.73 sq M.predicted [Volume Rate/Area] in Serum, Plasma or Blood by Creatinine-based formula (CKD-EPI) 11/03/2023 05:06:00 89 >=60 (mL/min) Final eGFR is calculated based on the CKD-EPI 2020 equation. Sodium 11/03/2023 05:06:00 139 135-146 (m mol/L) Final Potassium 11/03/2023 05:06:00 4.0 3.5-5.1 (m mol/L) Final Cl 11/03/2023 05:06:00 106 98-107 (mm ol/L) Final CO2 11/03/2023 05:06:00 21 Below low normal 22- 32 (mmol/L) Final Anion gap 11/03/2023 05:06:00 12 7-15 (mmol /L) Final Glucose 11/03/2023 05:06:00 123 Above high normal 70 -120 (mg/dL) Final Calcium 11/03/2023 05:06:00 9.4 8.4-10.2 ( mg/dL) Final Performing Location [place] [facility] [place] [address] [place] [address]
--- OUTSIDE RECORDS SUMMARY | 2023-12-04 22:09 | External Medical Summary ---
Author Name Unknown Address Unknown Organization K01:LABORATORY [facility] - [address] [place] [address] Laboratory Report Ordering Provider Test Date Status TRI SONG 10/31/2023 08:00:00 Final Observation Date Value Abnormality Reference (Units ) Status Phosphate 10/31/2023 08:00:00 3.3 2.5-4.8 (m g/dL) Final Performing [facility] [address] [facility] [address]
--- OUTSIDE RECORDS SUMMARY | 2023-12-04 22:09 | External Medical Summary ---
Author Name Unknown Address Unknown Organization K01:LABORATORY [facility] [place] [address] [facility] [address] Laboratory Report Ordering Provider Test Date Status BANDAR PENA 11/01/2023 14:50:33 Final Observation Date Value Abnormality Reference (Units ) Status Color of Urine by Auto 11/01/2023 14:50:33 Light Yellow Colorless, Light Yellow, Yellow, Dark Yellow Final Clarity, Urine 11/01/2023 14:50:33 Clear Clear Final Glucose [Mass/volume] in Urine by Automated test strip 11/01/2023 14:50:33 Negative Negative (mg/dL) Final Bilirubin.total [Presence] in Urine by Automated test strip 11/01/2023 14:50:33 Negative Negative Final Ketones [Mass/volume] in Urine by Automated test strip 11/01/2023 14:50:33 Negative Negative (mg/dL) Final Specific gravity, Urine 11/01/2023 14:50:33 1.009 1.003-1.030 Final Hemoglobin [Presence] in Urine by Automated test strip 11/01/2023 14:50:33 Negative Negative Final pH, Urine 11/01/2023 14:50:33 6.0 5.0-7.5 (Units) Final Protein [Mass/volume] in Urine by Automated test strip 11/01/2023 14:50:33 Negative Negative (mg/dL) Final Urobilinogen [Mass/volume] in Urine by Automated test strip 11/01/2023 14:50:33 Normal Normal (mg/dL) Final Nitrite [Presence] in Urine by Automated test strip 11/01/2023 14:50:33 Negative Negative Final Leukocyte esterase [Presence] in Urine by Automated test strip 11/01/2023 14:50:33 Negative Negative Final RBC, Urine 11/01/2023 14:50:33 0-2 0-2 (/HPF) Final WBC, Urine 11/01/2023 14:50:33 0-2 0-2 (/HPF) Final Bacteria [#/area] in Urine sediment by Microscopy high power field 11/01/2023 14:50:33 0-25 0-25 (/HPF) Final CULTURE, URINE - [facility] 11/01/2023 14:50:33 Final Culture not indicated by uri nalysis results\X09\ Performing Location LABORATORY [facility] [place] - [facility] [address] [facility] [address]
--- OUTSIDE RECORDS SUMMARY | 2023-12-04 22:09 | External Medical Summary ---
Author Name Unknown Address Unknown Organization K01:[place] [facility] [place] [address] [place] [address] Laboratory Report Ordering Provider Test Date Status TRI SONG 11/01/2023 04:08:00 Final Observation Date Value Abnormality Reference (Units ) Status BUN 11/01/2023 04:08:00 8 6-20 (mg/dL) Final Creatinine 11/01/2023 04:08:00 0.6 0.5-1.0 (mg/dL) Final Glomerular filtration rate/1.73 sq M.predicted [Volume Rate/Area] in Serum, Plasma or Blood by Creatinine-based formula (CKD-EPI) 11/01/2023 04:08:00 89 >=60 (mL/min) Final eGFR is calculated based on the CKD-EPI 2020 equation. Sodium 11/01/2023 04:08:00 139 135-146 (m mol/L) Final Potassium 11/01/2023 04:08:00 4.1 3.5-5.1 (m mol/L) Final Cl 11/01/2023 04:08:00 109 Above high normal 98 -107 (mmol/L) Final CO2 11/01/2023 04:08:00 22 22-32 (mmo l/L) Final Anion gap 11/01/2023 04:08:00 8 7-15 (mmol /L) Final Glucose 11/01/2023 04:08:00 93 70-120 (mg /dL) Final Calcium 11/01/2023 04:08:00 8.8 8.4-10.2 ( mg/dL) Final Performing Location [facility]ORY [facility] [place] [address] [place] [address]
--- OUTSIDE RECORDS SUMMARY | 2023-12-04 22:09 | External Medical Summary ---
Author Name Unknown Address Unknown Organization K01:LABORATORY [facility] [place] - [address] [place] [address] Laboratory Report Ordering Provider Test Date Status CELESTE FERREIRA 10/30/2023 05:22:03 Final Observation Date Value Abnormality Reference (Units ) Status Bacteria identified in Specimen by Culture 10/30/2023 05:22:03 < 100 colonies/ml (no growth) Final Test: Culture, Urine, Quanti tative
Specimen Source: Urine, Clean Catch
Specimen Type: Urine
Specimen Date: 10/30/2023521
Result Date: 10/31/202356
Result Status: Final result
Resulting Lab: LABORATORY [facility] [place]
[address]
[place] [address]

CULTURE

< 100 colonies/ml (no growth)

null Performing Location LABORATORY [facility] [place] - [address] [place] [id number]
--- OUTSIDE RECORDS SUMMARY | 2023-12-04 22:09 | External Medical Summary ---
Author Name Unknown Address Unknown Organization [id number]:[facility] - [address] [place] [address] Laboratory Report Ordering Provider Test Date Status TRI SONG 10/31/2023 08:00:00 Final Observation Date Value Abnormality Reference (Units ) Status Magnesium 10/31/2023 08:00:00 2.2 1.5-2.6 (m g/dL) Final Performing Location [facility] [address] [facility] [id number]
--- OUTSIDE RECORDS SUMMARY | 2023-12-04 22:09 | External Medical Summary ---
Author Name Unknown Address Unknown Organization K01:LABORATORY C - [address] [place] [address] Laboratory Report Ordering Provider Test Date Status TRI SONG 10/30/2023 06:18:00 Final Observation Date Value Abnormality Reference (Units ) Status Phosphate 10/30/2023 06:18:00 3.2 2.5-4.8 (m g/dL) Final Performing Location [facility] - [address] [place] [address]
--- OUTSIDE RECORDS SUMMARY | 2023-12-04 22:09 | External Medical Summary ---
Author Name Unknown Address Unknown Organization [id number]:LABORATORY [facility] [place] - [facility] [address] [facility] [address] Laboratory Report Ordering Provider Test Date Status TRI SONG 11/01/2023 04:08:00 Final Observation Date Value Abnormality Reference (Units ) Status WBC, Total 11/01/2023 04:08:00 8.84 4.00-10.80 (K/uL) Final RBC 11/01/2023 04:08:00 4.14 3.85-5.15 (M/uL) Final Hemoglobin 11/01/2023 04:08:00 11.6 Below low normal 12.0-15.3 (g/dL) Final HCT 11/01/2023 04:08:00 37.7 36.0-45.2 (%) Final MCV 11/01/2023 04:08:00 91.1 81.5-97.5 (fL) Final MCH 11/01/2023 04:08:00 28.0 27.0-34.0 (pg) Final MCHC 11/01/2023 04:08:00 30.8 32.0-36.0 (g/dL) Final RDW 11/01/2023 04:08:00 15.2 11.5-15.5 (%) Final Platelets 11/01/2023 04:08:00 240 140-400 (K/uL) Final MPV 11/01/2023 04:08:00 9.3 6.6-11.1 (fL) Final Nucleated erythrocytes/100 leukocytes [Ratio] in Blood by Automated count 11/01/2023 04:08:00 0 <=0 (/100 WBCs) Final Performing Location LABORATORY [facility] [place] - [address] [facility] [address]
--- OUTSIDE RECORDS SUMMARY | 2023-12-04 22:09 | External Medical Summary ---
Author Name Unknown Address Unknown Organization K01:LABORATORY [facility] [place] - [facility] [address] [facility] [address] [facility] [id number] Laboratory Report Ordering Provider Test Date Status TRI SONG 11/01/2023 04:08:00 Final Observation Date Value Abnormality Reference (Units ) Status Calcium.ionized [Moles/volume] in Serum or Plasma by Ion-selective membrane electrode (ISE) 11/01/2023 04:08:00 1.28 1.13-1.32 (mmol/L) Final This test was developed and its performance characteristics dtermined by [facility]. It has not been cleared or approved by the US Food and Drug Administration Performing Location LABORATORY [place] [address] [address] [facility] [id number]
--- OUTSIDE RECORDS SUMMARY | 2023-12-04 22:09 | External Medical Summary ---
Author Name Unknown Address Unknown Organization K01:[place] [facility] [place] [facility] [address] [facility] [address] Laboratory Report Ordering Provider Test Date Status TRI SONG 10/31/2023 08:00:00 Final Observation Date Value Abnormality Reference (Units ) Status WBC, Total 10/31/2023 08:00:00 10.92 Above high normal 4.00-10.80 (K/uL) Final RBC 10/31/2023 08:00:00 4.58 3.85-5.15 (M/uL) Final Hemoglobin 10/31/2023 08:00:00 13.0 12.0-15.3 (g/dL) Final HCT 10/31/2023 08:00:00 40.8 36.0-45.2 (%) Final MCV 10/31/2023 08:00:00 89.1 81.5-97.5 (fL) Final MCH 10/31/2023 08:00:00 28.4 27.0-34.0 (pg) Final MCHC 10/31/2023 08:00:00 31.9 32.0-36.0 (g/dL) Final RDW 10/31/2023 08:00:00 15.2 11.5-15.5 (%) Final Platelets 10/31/2023 08:00:00 247 140-400 (K/uL) Final MPV 10/31/2023 08:00:00 8.9 6.6-11.1 (fL) Final Nucleated erythrocytes/100 leukocytes [Ratio] in Blood by Automated count 10/31/2023 08:00:00 0 <=0 (/100 WBCs) Final Performing Location [facility] [place] [address] [facility] [address]
--- OUTSIDE RECORDS SUMMARY | 2023-12-04 22:09 | External Medical Summary ---
Author Name Unknown Address Unknown Organization K01:LABORATORY [facility] [place] - [address] [place] [address] Laboratory Report Ordering Provider Test Date Status SHEEBA WHARTON 11/02/2023 08:33:00 Final Observation Date Value Abnormality Reference (Units ) Status BUN 11/02/2023 08:33:00 8 6-20 (mg/dL) Final Creatinine 11/02/2023 08:33:00 0.6 0.5-1.0 (mg/dL) Final Glomerular filtration rate/1.73 sq M.predicted [Volume Rate/Area] in Serum, Plasma or Blood by Creatinine-based formula (CKD-EPI) 11/02/2023 08:33:00 89 >=60 (mL/min) Final eGFR is calculated based on the CKD-EPI 2020 equation. Sodium 11/02/2023 08:33:00 138 135-146 (m mol/L) Final Potassium 11/02/2023 08:33:00 3.9 3.5-5.1 (m mol/L) Final Cl 11/02/2023 08:33:00 105 98-107 (mm ol/L) Final CO2 11/02/2023 08:33:00 23 22-32 (mmo l/L) Final Anion gap 11/02/2023 08:33:00 10 7-15 (mmol /L) Final Glucose 11/02/2023 08:33:00 119 70-120 (mg /dL) Final Calcium 11/02/2023 08:33:00 9.4 8.4-10.2 ( mg/dL) Final Performing Location LABORATORY [facility] [place] - [address] [place] [address]
--- OUTSIDE RECORDS SUMMARY | 2023-12-04 22:09 | External Medical Summary ---
Author Name Unknown Address Unknown Organization K01:[place] [facility] [place] [address] [place] [address] Laboratory Report Ordering Provider Test Date Status CELESTE FERREIRA 10/30/2023 05:22:03 Final Observation Date Value Abnormality Reference (Units ) Status Color of Urine by Auto 10/30/2023 05:22:03 Yellow Colorless, Light Yellow, Yellow, Dark Yellow Final Clarity, Urine 10/30/2023 05:22:03 Clear Clear Final Glucose [Mass/volume] in Urine by Automated test strip 10/30/2023 05:22:03 Negative Negative (mg/dL) Final Bilirubin.total [Presence] in Urine by Automated test strip 10/30/2023 05:22:03 Negative Negative Final Ketones [Mass/volume] in Urine by Automated test strip 10/30/2023 05:22:03 Negative Negative (mg/dL) Final Specific gravity, Urine 10/30/2023 05:22:03 1.021 1.003-1.030 Final Hemoglobin [Presence] in Urine by Automated test strip 10/30/2023 05:22:03 Negative Negative Final pH, Urine 10/30/2023 05:22:03 6.5 5.0-7.5 (Units) Final Protein [Mass/volume] in Urine by Automated test strip 10/30/2023 05:22:03 Negative Negative (mg/dL) Final Urobilinogen [Mass/volume] in Urine by Automated test strip 10/30/2023 05:22:03 Normal Normal (mg/dL) Final Nitrite [Presence] in Urine by Automated test strip 10/30/2023 05:22:03 Negative Negative Final Leukocyte esterase [Presence] in Urine by Automated test strip 10/30/2023 05:22:03 Negative Negative Final Annotation Comment 10/30/2023 05:22:03 Final Screen negative - Microscopi c not performed. Performing Location [facility] - [address] [place] [address]
--- OUTSIDE RECORDS SUMMARY | 2023-12-04 22:09 | External Medical Summary ---
Author Name Unknown Address Unknown Organization K01:LABORATORY [place] - [facility] [address] [place] [address] Laboratory Report Ordering Provider Test Date Status TRI SONG 10/30/2023 06:18:00 Final Observation Date Value Abnormality Reference (Units ) Status BUN 10/30/2023 06:18:00 11 6-20 (mg/dL) Final Creatinine 10/30/2023 06:18:00 0.6 0.5-1.0 (mg/dL) Final Glomerular filtration rate/1.73 sq M.predicted [Volume Rate/Area] in Serum, Plasma or Blood by Creatinine-based formula (CKD-EPI) 10/30/2023 06:18:00 88 >=60 (mL/min) Final eGFR is calculated based on the CKD-EPI 2020 equation. Sodium 10/30/2023 06:18:00 139 135-146 (m mol/L) Final Potassium 10/30/2023 06:18:00 3.9 3.5-5.1 (m mol/L) Final Cl 10/30/2023 06:18:00 107 98-107 (mm ol/L) Final CO2 10/30/2023 06:18:00 19 Below low normal 22- 32 (mmol/L) Final Anion gap 10/30/2023 06:18:00 13 7-15 (mmol /L) Final Glucose 10/30/2023 06:18:00 96 70-120 (mg /dL) Final Calcium 10/30/2023 06:18:00 8.6 8.4-10.2 ( mg/dL) Final Performing Location LABORATORY [place] - [address] [place] [address]
--- OUTSIDE RECORDS SUMMARY | 2023-12-04 22:09 | External Medical Summary ---
Author Name Unknown Address Unknown Organization K01:LABORATORY C - [address] [place] [address] Laboratory Report Ordering Provider Test Date Status TRI SONG 11/01/2023 04:08:00 Final Observation Date Value Abnormality Reference (Units ) Status Phosphate 11/01/2023 04:08:00 3.2 2.5-4.8 (m g/dL) Final Performing Location [facility] [address] [facility] [address]
--- OUTSIDE RECORDS SUMMARY | 2023-12-04 22:09 | External Medical Summary | Summary of Care ---
Author Name Unknown Organization [facility] Address [address] [place] [address] Phone [phone] Care Team Providers Care Personal Assistant Name Role Phone Kathy Sweeney MD Primary Care Provider [phone] Reason for Visit * Reason Comments [facility] Encounter Details Date Type Department Care Team (Late st Contact Info) Description 10/29/2023 12:25 PM EDT Documentation [facility], [place] [address] [place] [address] 2, [facility] [address], [place] [id number] Traumatic injury* Allergies Active Allergy Reactions Criticality Noted Date Comments Aspirin Anaphylaxis High 12/21/2016 Lip swelling Diphenhydramine Hcl Edema face/lips/tongue High 08/07 Ibuprofen Edema face/lips/tongue High 10/08/2002 Penicillins Unknown 10/08/2002 Red Dye Edema face/lips/tongue,Hives High 05/23/2023 documented as of this encounter (statuses as of 10/30/2023) Medications Medication Sig Dispensed Refills Start Date [...] 40 Tablet 2 4 Suspended Additional Information amLODIPine Besylate 5 MG Oral Tablet (Norvasc)Indications :HTN, goal below 140/90,Intermittent lightheadedness TAKE 1 TABLET EVERY MORNING 90 Tablet 2 4 Suspended Additional Information Meclizine HCl 25 MG Oral Tablet (Antivert) Take 1 Tablet by mouth 3 times a day as needed for Dizziness. 30 Tablet 1 4 10/29/19 24 Discontinued( Medication List Clean Up) Fluticasone Propionate HFA 110 MCG/ACT Inhalation AerosolIndications:M ild persistent asthma without complication Inhale 2 Puffs by mouth in the morning and 2 Puffs before bedtime. 12 g 1 4 Suspended Additional Information Pantoprazole Sodium 40 MG Oral Tablet Delayed [...] as of this encounter (statuses as of 10/30/2023) Active Problems Problem Noted Date Diagnosed Date [...] as of this encounter (statuses as of 10/30/2023) Resolved Problems Problem Noted Date Diagnosed Date [...] as of this encounter (statuses as of 10/30/2023) Immunizations Name Administration Dates Next Due COVID-19 [...] as of this encounter Progress Notes * Teo Santiago RN - 10/29/2023 3:14 PM EDT MEDICARE AMBULANCE INFORMATION SHEET Patient Admitted as an Inpatient: yes Certifying Physician/Ordering Service:[facility] [place] Physician - Javier Moore M.D. [facility] [address] [facility] [place] [address] Point of Television Station Manager (zip code required): Hospital - [facility] - [address]; [place] [address] Destination (Specify Name/Address): [facility] - [address]; [place] [address] Patient transported to nearest facility (capable of mgmt for Pt's condition): YES Total number of Loaded Miles: 67.2 miles Mode of Transport: Air Completed by: Teo Santiago RN documented in this encounter Plan of Treatment Upcoming Encounters Date Type Department Care Team (Late st Contact Info) Description 11/13/2023 4:00 PM EDT Imaging Radiology [address] [facility] [place] [address] 12/22/2023 11:20 AM EST Office Visit Family Practice [facility] [place] [address] [place] [address] Kathy Sweeney MD [address] [place] [address] 01/09/2024 10:00 AM EST Laboratory Laboratory [facility] [address] [place] [phone] [address] [facility] [address] [place] [address] 01/16/2024 12:30 PM EST Office Visit Hematology/Oncology [facility] [address] [facility] [place] [phone] Bindu Jones MD [address] [facility] [place] [address] 01/29/2024 9:20 AM EST Office Visit Dermatology, Kailey Buckner [address] [place] [address] Rola Lam PA-C [address] [place] [address] 03/21/2024 3:30 PM EST Office Visit Neurology [facility] [address] [facility] [place] [address] Abbie Arora PA-C [address] [place] [place] [address] Health Maintenance Due Date Last Done Comments Adult Wellness Visit 09/20/2013 09/20/2012 *BISPHONATE OR OTHER ACCEPTABLE MEDICATION NEEDED FOR OSTEOPOROSIS (REFER TO SMARTSET #1146) 05/09/2022 Influenza Vaccine (FLU shot) (#1) 2023 11/22/2022, 11/12/2021, 10/13/2020, Additional history exists DXA Scan 11/11/2023 11/10/2021, 10/08, 07/27/2015, Additional history exists HbA1c 11/23/2023 11/22/2022, 08/2021, 10/13/2020, Additional history exists Depression Screening 06/28/2024 06/29/2023, 09/03/19 15 GFR 10/29/2024 10/30/2023, 10/08, 01/11/2023, Additional history exists Albumin/Creatinine Ratio 11/12/2024 11/12/2021, 06/06 Colonoscopy 07/08/2026 07/08/2021, 03/2021, 11/19/2015, Additional history exists DTap/Tdap Vaccines (2 - Td or Tdap) 11/07/2026 11/07/2016, 07/16/2010 Pneumococcal Vaccine: 65+ Years Completed 09/02/2014, 08/30/2010 Zoster Vaccines Completed 11/21/2019, 08/2019, 07/25/2007 COVID-19 Vaccine Discontinued 04/21/2020, 03/31/2020 VITAMIN D LEVEL ONCE IN A LIFETIME-USE SMARTSET# [id number] Completed 10/13/2020, 12/26/2019, 06/21/2018, Additional history exists [...] this encounter Medical Devices Implanted Type Area Shredder Tender Device Identifier Shelf Expiration Date Model / Serial / Lot Alloderm 2x4 Sheet [id number] (8 Units) - [id number] Implanted:Qty : 8 on 11/15/2010 at [place] [facility] [place] Tissue - Human N/A: Esophagus [employer] 05/06/2012 [id number] / / [id number] documented as of this encounter Visit Diagnoses Diagnosis Traumatic injury- Primary Injury, other and unspecified, unspecified site documented in this encounter Advance Directives Documents on File Type Date Recorded 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 Care Teams Personal Assistant Relationship Specialty Start Date End Date Kathy Sweeney MD [address] [place] [address] PCP - General Family Medicine 11/22/22 documented as of this encounter
--- OUTSIDE RECORDS SUMMARY | 2023-12-04 22:09 | External Medical Summary ---
Author Name Unknown Address Unknown Organization K01:LABORATORY [facility] [place] - [facility] [address] [facility] [address] [facility] [address] Laboratory Report Ordering Provider Test Date Status TRI OSNG 10/31/2023 08:00:00 Final Observation Date Value Abnormality Reference (Units ) Status Calcium.ionized [Moles/volume] in Serum or Plasma by Ion-selective membrane electrode (ISE) 10/31/2023 08:00:00 1.21 1.13-1.32 (mmol/L) Final This test was developed and its performance characteristics dtermined by [employer]. It has not been cleared or approved by the US Food and Drug Administration Performing Location LABORATORY [place] [address] [address] [facility] [address]
--- OUTSIDE RECORDS SUMMARY | 2023-12-04 22:09 | External Medical Summary ---
Author Name Unknown Address Unknown Organization K01:[place] [facility] [place] [facility] [address] [facility] [address] Laboratory Report Ordering Provider Test Date Status TRI SONG 10/30/2023 06:18:00 Final Observation Date Value Abnormality Reference (Units ) Status WBC, Total 10/30/2023 06:18:00 11.21 Above high normal 4.00-10.80 (K/uL) Final RBC 10/30/2023 06:18:00 4.23 3.85-5.15 (M/uL) Final Hemoglobin 10/30/2023 06:18:00 12.2 12.0-15.3 (g/dL) Final HCT 10/30/2023 06:18:00 38.1 36.0-45.2 (%) Final MCV 10/30/2023 06:18:00 90.1 81.5-97.5 (fL) Final MCH 10/30/2023 06:18:00 28.8 27.0-34.0 (pg) Final MCHC 10/30/2023 06:18:00 32.0 32.0-36.0 (g/dL) Final RDW 10/30/2023 06:18:00 15.6 11.5-15.5 (%) Final Platelets 10/30/2023 06:18:00 214 140-400 (K/uL) Final MPV 10/30/2023 06:18:00 9.5 6.6-11.1 (fL) Final Nucleated erythrocytes/100 leukocytes [Ratio] in Blood by Automated count 10/30/2023 06:18:00 0 <=0 (/100 WBCs) Final Performing Location [place] [facility] [place] [address] [place] [address]
--- OUTSIDE RECORDS SUMMARY | 2023-12-04 22:09 | External Medical Summary ---
Author Name Unknown Address Unknown Organization K01:LABORATORY [facility] [place] - [facility] N [facility] [address] [facility] [address] Laboratory Report Ordering Provider Test Date Status TRI SONG 10/30/2023 06:18:00 Final Observation Date Value Abnormality Reference (Units ) Status Calcium.ionized [Moles/volume] in Serum or Plasma by Ion-selective membrane electrode (ISE) 10/30/2023 06:18:00 1.23 1.13-1.32 (mmol/L) Final This test was developed and its performance characteristics dtermined by [employer]. It has not been cleared or approved by the US Food and Drug Administration Performing Location LABORATORY [place] [address] [address] [facility] [address]
--- OUTSIDE RECORDS SUMMARY | 2023-12-04 22:09 | External Medical Summary | Summary of Care ---
Author Name Unknown Organization [facility] Address [address] [place] [address] Phone [phone] Care Team Providers Care Meter And Service Line Inspector Name Role Phone Kathy Sweeney MD Primary Care Provider [phone] Encounter Details Date Type Department Care Team (Late st Contact Info) Description 10/29/2023 Orders Only EMS Physicians [address] [place], [place] [id number] Mane Lopez, [address] [place] [address] Allergies Active Allergy Reactions Criticality Noted Date Comments Aspirin Anaphylaxis High 12/21/2016 Lip swelling Diphenhydramine Hcl Edema face/lips/tongue High 08/07 Ibuprofen Edema face/lips/tongue High 10/08/2002 Penicillins Unknown 10/08/2002 Red Dye Edema face/lips/tongue,Hives High 05/23/2023 documented as of this encounter (statuses as of 11/02/2023) Medications Medication Sig Dispensed Refills Start Date [...] as of this encounter (statuses as of 11/02/2023) Active Problems Problem Noted Date Diagnosed Date [...] as of this encounter (statuses as of 11/02/2023) Resolved Problems Problem Noted Date Diagnosed Date [...] as of this encounter (statuses as of 11/02/2023) Immunizations Name Administration Dates Next Due COVID-19 mRNA, LNP-s, No Pre serve, 2-Dose Series ([employer]) 04/21/2020,03/31/2020 Pneumococcal Conjugate Vacc, 13 Valent (Prevnar) [...] Description 11/13/2023 4:00 PM EDT Imaging Radiology [address] [place] [address] 12/22/2023 11:20 AM EST Office Visit Family Practice [facility] [address] [place] [address] Kathy Sweeney MD [address] [place] [address] 01/09/2024 10:00 AM EST Laboratory Laboratory [facility] [address] [place] [phone] [place], Lab [facility] [address] [place] [place] [address] 01/16/2024 12:30 PM EST Office Visit Hematology/Oncology [facility] [address] [place] [phone] Bindu Jones MD [address] [place] [address] 01/29/2024 9:20 AM EST Office Visit Dermatology, Kailey Buckner [address] [phone] Rola Lam PA-C [address] [place] [phone] 03/21/2024 3:30 PM EST Office Visit Neurology [facility] [address] [place] [address] Abbie rAora PA-C [address] [address] Health Maintenance [...] Depression Screening 06/28/2024 06/29/2023, 09/03/19 15 GFR 10/31/2024 11/01/2023, 10/08, 10/30/2023, Additional history exists Albumin/Creatinine Ratio 11/12/2024 11/12/2021, 06/06 Colonoscopy 07/08/2026 07/08/2021, 03/2021, 11/19/2015, Additional history exists DTap/Tdap Vaccines (2 - Td or Tdap) 11/07/2026 11/07/2016, 07/16/2010 Pneumococcal Vaccine: 65+ Years Completed 09/02/2014, 08/30/2010 Zoster Vaccines Completed 11/21/2019, 08/2019, 07/25/2007 COVID-19 Vaccine Discontinued 04/21/2020, 03/31/2020 VITAMIN D LEVEL ONCE IN A LIFETIME-USE SMARTSET# [id number] Completed 10/13/2020, 12/26/2019, 06/21/2018, Additional history exists [...] this encounter Medical Devices Implanted Type Area Rougher Merchant Mill Device Identifier Shelf Expiration Date Model / Serial / Lot Alloderm 2x4 Sheet [id number] (8 Units) - [id number] Implanted:Qty : 8 on 11/15/2010 at [place] [facility] Tissue - Human N/A: Esophagus [employer] 05/06/2012 [id number] / / [id number] documented as of this encounter Procedures [...] study not interpreted or resulted by a [employer] or Reasult contracted radiologist. 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 Care Teams Meter And Service Line Inspector Relationship Specialty Start Date End Date Kathy Sweeney MD [address] [place] [address] PCP - General Family Medicine 11/22/22 documented as of this encounter
--- OUTSIDE RECORDS SUMMARY | 2023-12-04 22:10 | External Medical Summary ---
Author Name Unknown Address Unknown Organization K01[facility] [address] [address] Laboratory Report Ordering Provider Test Date Status CELESTE FERREIRA 10/30/2023 05:22:03 Final Cutoff Concentrations:
Drug Level
Amphetamines 500 ng/mL
Benzodiazepines 100 ng/mL
Cannabinoids 50 ng/mL
Cocaine Metabolite 150 ng/mL
Fentanyl 1 ng/mL
Hydrocodone / Hydromorphone 300 ng/mL
Methadone Metabolite 100 ng/mL
Morphine / Codeine 300 ng/mL
Oxycodone / Oxymorphone 100 ng/mL

Screening results are presumptive and can only be used for medical purposes. Positive screening results are reflexed to confirmatory testing. Observation Date Value Abnormality Reference (Units ) Status Amphetamines, Urine screen 10/30/2023 05:22:03 Negative Negative Final Benzodiazepines, Urine screen 10/30/2023 05:22:03 Negative Negative Final Cannabinoids, Urine screen 10/30/2023 05:22:03 Negative Negative Final Cocaine Metabolite, Urine screen 10/30/2023 05:22:03 Negative Negative Final fentaNYL [Presence] in Urine by Screen method 10/30/2023 05:22:03 Negative Negative Final HYDROcodone [Presence] in Urine by Screen method 10/30/2023 05:22:03 Negative Negative Final 6-Fqkhgqlvsi-6,5-Dimeth yl-3,3-Diphenylpyrrolid ine (EDDP) [Presence] in Urine 10/30/2023 05:22:03 Negative Negative Final Opiates, Urine screen 10/30/2023 05:22:03 Negative Negative Final oxyCODONE [Presence] in Urine by Screen method 10/30/2023 05:22:03 Negative Negative Final Performing Location [place] [facility] [place] [address] [facility] [address]
--- OUTSIDE RECORDS SUMMARY | 2023-12-04 22:10 | External Medical Summary ---
Author Name Unknown Address Unknown Organization K01:LABORATORY [facility] [place] [place] [facility] - [address] [place] [address] Laboratory Report Ordering Provider Test Date Status CELESTE FERREIRA 10/29/2023 14:04:00 Final Observation Date Value Abnormality Reference (Units ) Status ABO 10/29/2023 14:04:00 O Final RH 10/29/2023 14:04:00 Positive Final RED BLOOD CELL ANTIBODY SCREEN 10/29/2023 14:04:00 Negative Final SPECIMEN EXPIRATION DATE 10/29/2023 14:04:00 11/01/2023 23:59 Final Performing Location LABORATORY [facility] [place] [place] [facility] - [address] [place] [address]
--- OUTSIDE RECORDS SUMMARY | 2023-12-04 22:10 | External Medical Summary ---
Author Name Unknown Address Unknown Organization K01:LABORATORY [facility] [place] - [address] [place] [address] Laboratory Report Ordering Provider Test Date Status CELESTE FERREIRA 10/29/2023 14:04:00 Final Observation Date Value Abnormality Reference (Units ) Status BUN 10/29/2023 14:04:00 11 6-20 (mg/dL) Final Creatinine 10/29/2023 14:04:00 0.6 0.5-1.0 (mg/dL) Final Glomerular filtration rate/1.73 sq M.predicted [Volume Rate/Area] in Serum, Plasma or Blood by Creatinine-based formula (CKD-EPI) 10/29/2023 14:04:00 90 >=60 (mL/min) Final eGFR is calculated based on the CKD-EPI 2020 equation. Sodium 10/29/2023 14:04:00 135 135-146 (m mol/L) Final Potassium 10/29/2023 14:04:00 4.1 3.5-5.1 (m mol/L) Final Cl 10/29/2023 14:04:00 103 98-107 (mm ol/L) Final CO2 10/29/2023 14:04:00 24 22-32 (mmo l/L) Final Anion gap 10/29/2023 14:04:00 8 7-15 (mmol /L) Final Glucose 10/29/2023 14:04:00 127 Above high normal 70 -120 (mg/dL) Final Calcium 10/29/2023 14:04:00 9.1 8.4-10.2 ( mg/dL) Final Performing Location LABORATORY [facility] [place] - [address] [place] [address]
--- OUTSIDE RECORDS SUMMARY | 2023-12-04 22:10 | External Medical Summary ---
Author Name Unknown Address Unknown Organization K01:[facility]ORY [facility] [place] [address] [facility] [address] Laboratory Report Ordering Provider Test Date Status CELESTE FERREIRA 10/29/2023 14:04:00 Final Anticoagulation may affect t esting. Refer to [facility] Test Catalog for a list of effects. Observation Date Value Abnormality Reference (Units ) Status aPTT panel - Platelet poor plasma 10/29/2023 14:04:00 27 21-38 (seconds) Final Performing Location [facility] [place] [address] [facility] [address]
--- OUTSIDE RECORDS SUMMARY | 2023-12-04 22:10 | External Medical Summary ---
Author Name Unknown Address Unknown Organization K01:LABORATORY [facility] [place] - [facility] [address] Laboratory Report Ordering Provider Test Date Status CELESTE FERREIRA 10/29/2023 14:03:00 Final Observation Date Value Abnormality Reference (Units ) Status WBC, Total 10/29/2023 14:03:00 20.40 Above high normal 4.00-10.80 (K/uL) Final RBC 10/29/2023 14:03:00 4.75 3.85-5.15 (M/uL) Final Hemoglobin 10/29/2023 14:03:00 13.6 12.0-15.3 (g/dL) Final HCT 10/29/2023 14:03:00 41.8 36.0-45.2 (%) Final MCV 10/29/2023 14:03:00 88.0 81.5-97.5 (fL) Final MCH 10/29/2023 14:03:00 28.6 27.0-34.0 (pg) Final MCHC 10/29/2023 14:03:00 32.5 32.0-36.0 (g/dL) Final RDW 10/29/2023 14:03:00 15.3 11.5-15.5 (%) Final Platelets 10/29/2023 14:03:00 245 140-400 (K/uL) Final MPV 10/29/2023 14:03:00 9.2 6.6-11.1 (fL) Final Nucleated erythrocytes/100 leukocytes [Ratio] in Blood by Automated count 10/29/2023 14:03:00 0 <=0 (/100 WBCs) Final Performing Location LABORATORY C - [address] [facility] [address]
--- OUTSIDE RECORDS SUMMARY | 2023-12-04 22:10 | External Medical Summary ---
Author Name Unknown Address Unknown Organization K01:LABORATORY [facility] [place] - [address] [place] [address] Laboratory Report Ordering Provider Test Date Status CELESTE FERREIRA 10/29/2023 14:04:00 Final Observation Date Value Abnormality Reference (Units ) Status Ethanol 10/29/2023 14:04:00 Negative Negative Final Performing Location LABORATORY C - [address] [place] [address]
--- OUTSIDE RECORDS SUMMARY | 2023-12-04 22:10 | External Medical Summary ---
Author Name Unknown Address Unknown Organization K01:LABORATORY [facility] [place] B LOOD BANK - [address] [place] [address] Laboratory Report Ordering Provider Test Date Status CELESTE FERREIRA 10/29/2023 14:04:00 Final Observation Date Value Abnormality Reference (Units ) Status ABO 10/29/2023 14:04:00 O Final RH 10/29/2023 14:04:00 Positive Final Performing Location LABORATORY [facility] [place] BLOOD [facility] - [address] [place] [address]
--- OUTSIDE RECORDS SUMMARY | 2023-12-04 22:10 | External Medical Summary ---
Author Name Unknown Address Unknown Organization K01:LABORATORY [facility] [place] - [address] [facility] [address] Laboratory Report Ordering Provider Test Date Status CELESTE FERREIRA 10/29/2023 14:03:00 Final Observation Date Value Abnormality Reference (Units ) Status SYNC LEUKOCYTES IN BLOOD BY AUTOMATED COUNT 10/29/2023 14:03:00 20.40 Above high normal 4.00-10.80 (K/uL) Final Segs 10/29/2023 14:03:00 81.3 Above high normal 40.0-75.0 (%) Final Lymphs % 10/29/2023 14:03:00 10.3 Below low normal 18.0-42.0 (%) Final Monos 10/29/2023 14:03:00 6.4 1.0-11.0 (%) Final Eosinophils 10/29/2023 14:03:00 0.3 0.0-6.0 (%) Final Basos 10/29/2023 14:03:00 0.4 0.0-2.0 (%) Final Immature Granulocyte, Percent 10/29/2023 14:03:00 1.3 0.0-2.0 (%) Final Absolute Segs 10/29/2023 14:03:00 16.58 Above high normal 1.80-7.70 (K/uL) Final Lymphs, absolute 10/29/2023 14:03:00 2.10 1.00-4.80 (K/ul) Final Monos, Abs 10/29/2023 14:03:00 1.30 Above high normal 0.00-1.10 (K/uL) Final Eos, Abs 10/29/2023 14:03:00 0.07 0.00-0.70 (K/uL) Final Basos, Abs 10/29/2023 14:03:00 0.09 0.00-0.20 (K/uL) Final Immature Granulocytes, Number 10/29/2023 14:03:00 0.26 Above high normal 0.00-0.20 (K/uL) Final Performing Location LABORATORY [facility] [place] - [facility] [address] [facility] [address]
--- OUTSIDE RECORDS SUMMARY | 2023-12-04 22:10 | External Medical Summary ---
Author Name Unknown Address Unknown Organization K01:LABORATORY [facility] [place] - [address] [facility] [address] Laboratory Report Ordering Provider Test Date Status HANNAALONSO 10/29/2023 14:04:00 Final Warfarin Therapy
INR: 2 .0-3.0 conventional anticoagulation
INR: 2.5- 3.5 high intensity anticoagulation Observation Date Value Abnormality Reference (Units ) Status PT 10/29/2023 14:04:00 14.7 11.6-15.2 (seconds) Final INR 10/29/2023 14:04:00 1.2 0.8-1.2 Final Performing Location [facility]ORY [facility] [place] [facility] [address] [facility] [address]
--- OUTSIDE RECORDS SUMMARY | 2023-12-04 22:10 | External Medical Summary ---
Author Name Unknown Address Unknown Organization K01:LABORATORY [facility] [place] - [address] [place] [address] Laboratory Report Ordering Provider Test Date Status CELESTE FERREIRA 10/29/2023 14:03:00 Final Observation Date Value Abnormality Reference (Units ) Status Lactic Acid 10/29/2023 14:03:00 1.3 0.4-2.0 (mmol/L) Final Performing Location LABORATORY C - [address] [facility] [address]
--- OUTSIDE RECORDS SUMMARY | 2023-12-04 22:10 | External Medical Summary ---
Author Name Unknown Address Unknown Organization K01:LABORATORY [facility] [place] - [address] [place] [address] Laboratory Report Ordering Provider Test Date Status CELESTE FERREIRA 10/29/2023 14:04:00 Final Observation Date Value Abnormality Reference (Units ) Status AST (Aspartate aminotransferase) 10/29/2023 14:04:00 18 10-35 (U/L) Final Performing Location LABORATORY C - [address] [place] [address]
--- OUTSIDE RECORDS SUMMARY | 2023-12-04 22:10 | External Medical Summary | Summary of Care ---
Author Name Unknown Organization [facility] Address [address] [place] [address] Phone [phone] Care Team Providers Care Crusher And Blender Operator Name Role Phone Kathy Sweeney MD Primary Care Provider [phone] Reason for Visit * Reason Comments [facility] Encounter Details Date Type Department Care Team (Late st Contact Info) Description 10/29/2023 12:25 PM EDT Documentation [facility] [place] [address] [place] [address] 2, [facility] [address], [place] [id number] Traumatic injury* Allergies Active Allergy Reactions Criticality Noted Date Comments Aspirin Anaphylaxis High 12/21/2016 Lip swelling Diphenhydramine Hcl Edema face/lips/tongue High 08/07 Ibuprofen Edema face/lips/tongue High 10/08/2002 Penicillins Unknown 10/08/2002 Red Dye Edema face/lips/tongue,Hives High 05/23/2023 documented as of this encounter (statuses as of 10/29/2023) Medications Medication Sig Dispensed Refills Start Date [...] 3 01/10/2023 Active Lactobacillus Probiotic Oral Tablet once. 03/20/2023 Act giuseppe Cetirizine HCl 10 MG Oral Tablet (ZyrTEC) [...] per week 42.5 g 3 06/20/2023 Active traMADol HCl 50 MG Oral Tablet (Ultram)Indications:H ereditary and idiopathic peripheral neuropathy Take 1 Tablet by mouth every 6 hours as needed (pain). 40 Tablet 2 07/11/2023 Active amLODIPine Besylate 5 MG Oral Tablet (Norvasc)Indications: HTN, goal below 140/90,Intermittent lightheadedness TAKE 1 TABLET EVERY MORNING 90 Tablet 2 09/26/2023 Active Meclizine HCl 25 MG Oral Tablet (Antivert) Take 1 Tablet by mouth 3 times a day as needed for Dizziness. 30 Tablet 1 10/04/2023 Active Additional Information Patient not taking.Reported on 10/11/2023 Fluticasone Propionate HFA 110 MCG/ACT Inhalation AerosolIndications:Mi ld persistent asthma without complication Inhale 2 Puffs by mouth in the morning and 2 Puffs before bedtime. 12 g 1 10/11/2023 Active Pantoprazole Sodium 40 MG Oral Tablet Delayed Release (Protonix) Take 1 Tablet by mouth in the morning. Active Lisinopril 20 MG Oral Tablet (Prinivil)Indications :HTN, goal below 140/90 TAKE 1 TABLET EVERY MORNING 90 Tablet 1 10/28/2023 Active Montelukast Sodium 10 MG Oral Tablet (Singulair)Indication s:Allergic rhinitis due to pollen, unspecified seasonality TAKE 1 TABLET BEFORE BEDTIME 90 Tablet 3 10/28/2023 Active documented as of this encounter (statuses as of 10/29/2023) Active Problems Problem Noted Date Diagnosed Date [...] as of this encounter (statuses as of 10/29/2023) Resolved Problems Problem Noted Date Diagnosed Date [...] as of this encounter (statuses as of 10/29/2023) Immunizations Name Administration Dates Next Due COVID-19 mRNA, LNP-s, No Pre serve, 2-Dose Series ([employer]) 04/21/2020,03/31/2020 Pneumococcal Conjugate Vacc, 13 Valent (Prevnar) [...] money to buy more. Never true 05/07/19 Within the past 12 months, t he [...] Admitted as an Inpatient: yes Certifying Physician/Ordering Service:[facility] ED Physician - Javier Moore M.D. [facility] [address] [place] [address] Point of Pediatric Cardiologist (zip code required): Hospital - [facility] - [address]; [place] [address] Destination (Specify Name/Address): [facility] - [address]; [place] [address] Patient transported to nearest facility (capable of mgmt for Pt's condition): YES Total number of Loaded Miles: 67.2 miles Mode of Transport: Air Completed by: Teo Santiago RN documented in this encounter Plan of Treatment Upcoming Encounters Date Type Department Care Team (Late st Contact Info) Description 10/31/2023 3:20 PM EDT Office Visit [facility] [place] [address] [place] [address] Kathy Sweeney MD [address] [place] [address] 12/22/2023 11:20 AM EST Office Visit [facility] [place] [address] [place] [address] Kathy Sweeney MD [address] [place] [address] 01/09/2024 10:00 AM EST Laboratory Laboratory [facility] [place] [address] [place] [address] [phone] [place] [facility] [address] [place] [address] [address] 01/16/2024 12:30 PM EST Office Visit Hematology/Oncology [facility] [place] [address] [phone] Bindu Jones MD 200 [facility] [place] [address] 01/29/2024 9:20 AM EST Office Visit Dermatology, [place] [address] [place] [address] [place] [address] Rola Lam PA-C [address] [place] [address] 03/21/2024 3:30 PM EST Office Visit [facility] [place] 200 [facility] [place] [address] Abbie Arora PA-C [address] [address] Health Maintenance Due Date Last Done Comments Adult Wellness Visit 09/20/2013 09/20/2012 *BISPHONATE OR OTHER ACCEPTABLE MEDICATION NEEDED FOR OSTEOPOROSIS (REFER TO SMARTSET #1146) 05/09/2022 Influenza Vaccine (FLU shot) (#1) 2023 11/22/2022, 11/12/2021, 10/13/2020, Additional history exists DXA Scan 11/11/2023 11/10/2021, 10/08, 07/27/2015, Additional history exists HbA1c 11/23/2023 11/22/2022, 08/2021, 10/13/2020, Additional history exists Depression Screening 06/28/2024 06/29/2023, 09/03/19 15 GFR 10/28/2024 10/29/2023, 1207/2022, 11/22/2022, Additional history exists Albumin/Creatinine Ratio 11/12/2024 11/12/2021, 06/06 Colonoscopy 07/08/2026 07/08/2021, 03/2021, 11/19/2015, Additional history exists DTap/Tdap Vaccines (2 - Td or Tdap) 11/07/2026 11/07/2016, 07/16/2010 Pneumococcal Vaccine: 65+ Years Completed 09/02/2014, 08/30/2010 Zoster Vaccines Completed 11/21/2019, 08/08/2019, 07/25/2007 COVID-19 Vaccine Discontinued 04/21/2020, 03/31/2020 VITAMIN D LEVEL ONCE IN A LIFETIME-USE SMARTSET# 80816 Completed 10/13/2020, 12/26/2019, 06/21/2018, Additional history exists [...] this encounter Medical Devices Implanted Type Area Data Coder Operator Device Identifier Shelf Expiration Date Model / Serial / Lot Alloderm 2x4 Sheet [id number] (8 Units) - [id number] Implanted:Qty : 8 on 11/15/2010 at OR [facility] Tissue - Human N/A: Esophagus [employer] 05/06/2012 [id number] / / [id number] documented as of this encounter Visit Diagnoses Diagnosis Traumatic injury- Primary Injury, other and unspecified, unspecified site documented in this encounter Advance Directives Documents on File Type Date Recorded Patient Director Of Special Events Expl anation Advance Directives and Living Will 05/05/2020 ADVANCE DIRECTIVE / LIVING WILL Power of Career Services Assistant 05/05/2020 POWER OF A TTORNEY MEDICAL [...] and were consensually agreed upon. Care Teams Crusher And Blender Operator Relationship Specialty Start Date End Date Kathy Sweeney MD [address] [place] [address] PCP - General Family Medicine 11/22/22 documented as of this encounter
[2023-12-04] MEDS: ADVANCED PROBIOTIC 625 MG CAPSULE PO SCH (22:17)
[2023-12-04] MEDS: OLANZapine 10 MG/2.1 ML SDV IM STA (23:18)
--- OUTSIDE RECORDS SUMMARY | 2023-12-05 04:51 | External Medical Summary | Summary of Care ---
Author Name Unknown Organization [facility] Address [address] [place] [address] Phone [phone] Care Team Providers Care Holder Pile Driving Name Role Phone Kathy Sweeney MD Primary Care Provider [phone] Reason for Visit * Reason Onset Date Comments Home Health 12/04/2023 Advice 12/04/2023 Encounter Details Date Type Department Care Team (Late st Contact Info) Description 12/04/[address] [facility] [address] [facility] [address] Kathy Sweeney MD [address] [place] [address] Home Health; Advice Allergies Active Allergy Reactions Criticality Noted Date Comments Aspirin Anaphylaxis High 12/21/2016 Lip swelling Diphenhydramine Hcl Edema face/lips/tongue High 08/07 Ibuprofen Edema face/lips/tongue High 10/08/2002 Penicillins Unknown 10/08/2002 Red Dye Edema face/lips/tongue,Hives High 05/23/2023 documented as of this encounter (statuses as of 12/04/2023) Medications Medication Sig Dispensed Refills Start Date [...] as of this encounter (statuses as of 12/04/2023) Active Problems Problem Noted Date Diagnosed Date [...] as of this encounter (statuses as of 12/04/2023) Resolved Problems Problem Noted Date Diagnosed Date [...] as of this encounter (statuses as of 12/04/2023) Immunizations Name Administration Dates Next Due COVID-19 [...] encounter Miscellaneous Notes * Telephone Encounter - Jessy Sol LPN - 12/04/2023 12:06 PM EDT Called patient grand daughter Berna, she is with the patient currently. Informed of the message fromDr. Sweeney. Voices understanding and will call her father Grant right now and take the patient tot ER. Cancelled appointment tomorrow. * Telephone Encounter - Kathy Sweeney MD - 12/04/2023 11:52 AM EDT Recommend ER. Needs to be re-evaluated for any acute issues and assessed for fpc placement. Tried to get CM but we do not work with her insurance. Discussed with [facility] nurse last week as well. * Telephone Encounter - Jessy Sol LPN - 12/04/2023 10:30 AM EDT HH Concerns Brandon PT, Calling from: [facility] Report/Concerns of: Fall daily in the AM. Unknown if patient has hit her head. No notable injuries. Symptoms: SEE NARRATIVE Vitals: T 97.2 P 99 RR 17 BP 140/64 SP O2 98% room air Lung sounds - clear Denies pain or SOB. Narrative: Brandon, PT is currently with Cherelle and her granddaughter Berna. Falling daily every morningexcept 2 times since being home from [facility]. Patient isn't sleeping well, started Seroquel to help, but patient reports that she is still sleepless. Patient is rolling around so much in bed. It's unknown if the patient is trying to get out of bed as it's not witnessed when she falls. Patient is found lying on her side or back. Family gets patient up without difficulty. C/O dizziness worsening since patient was discharged from [facility] on 11/22. Dizziness worsens with position changes, leaning to the left today. Increased confusion since [facility] DC (noted in Neurosurg notes as well), decreased mobility, Dark urine with strong odor -symp started 11/29. BRANDON LEFT A URINE SPECIMEN CUP AND HAT. Verbal given for a HH nurse eval to be done. Scheduled patient tomorrow with Dr. Sweeney at [phone] appt and patient wants to see her PCP only. Please advise if ER is appropriate or Call back Berna grandlexiughter with any advice or orders at [phone]. [facility] * Telephone Encounter - Shellie hSen OSA - 12/04/2023 10:23 AM EDT Reason for patient's call: Brandon from [employer] [facility] requesting to speak with nurse Caller was transferred to [facility] at the nurse line. documented in this encounter Plan of Treatment Upcoming Encounters Date Type Department Care Team (Late st Contact Info) Description 12/05/2023 9:40 AM EDT Office Visit [facility] [address] [facility] [place] [address] Kathy Sweeney MD [address] [place] [address] 12/22/2023 11:20 AM EST Office Visit [facility] [address] [place] [address] [address] Kathy Sweeney MD [address] [facility] [address] [place] [address] 01/09/2024 10:00 AM EST Laboratory Laboratory [facility] [place] [address] [phone] [facility] [place] [address] [address] [facility] [place] [place] [address] 01/16/2024 12:30 PM EST Office Visit Hematology/Oncology [facility] [place] [address] [place] [phone] Bindu Jones MD [address] [place] [address] 03/21/2024 3:30 PM EST Office Visit Neurology [facility] [place] [address] [place] [address] Abbie Arora PA-C [address] [address] 03/28/2024 8:30 AM EST Therapy Neuropsychology [address] [facility] [place] [address] [place], [place] [address] Abundio Myles, PhD [address] [place] [address] Health Maintenance Due Date Last Done Comments Adult Wellness Visit 09/20/2013 09/20/2012 *BISPHONATE OR OTHER ACCEPTABLE MEDICATION NEEDED FOR OSTEOPOROSIS (REFER TO SMARTSET #1146) 05/09/2022 Albumin/Creatinine Ratio 11/12/2022 11/12/2021, 06/06 Influenza Vaccine (FLU shot) (#1) 2023 11/22/2022, 11/12/2021, 10/13/2020, Additional history exists DXA Scan 11/11/2023 11/10/2021, 10/08, 07/27/2015, Additional history exists HbA1c 11/23/2023 11/22/2022, 08/2021, 10/13/2020, Additional history exists GFR 05/21/2024 11/21/2023, 0 09/2023, 11/07/2023, Additional history exists Depression Screening 06/28/2024 06/29/2023, 09/03/19 15 CKD PHOS USE SMARTSET 66189 10/31/202410/08, 10/31/2023, 10/30/2023, Additional history exists CKD HGB USE SMARTSET 03001 11/20/202411/20, 11/21/2023, 11/14/2023, Additional history exists Colonoscopy 07/08/2026 07/08/2021, 03/2021, 11/19/2015, Additional history exists DTap/Tdap Vaccines (2 - Td or Tdap) 11/07/2026 11/07/2016, 07/16/2010 Pneumococcal Vaccine: 65+ Years Completed 09/02/2014, 08/30/2010 Zoster Vaccines Completed 11/21/2019, 0 08/2019, 07/25/2007 COVID-19 Vaccine Discontinued 04/21/2020, 03/31/2020 VITAMIN D LEVEL ONCE IN A LIFETIME-USE SMARTSET# [id number] Completed 10/13/2020, 12/26/2019, 06/21/2018, Additional history exists [...] this encounter Medical Devices Implanted Type Area Child Psychologist Device Identifier Shelf Expiration Date Model / Serial / Lot Alloderm 2x4 Sheet [id number] (8 Units) - [id number] Implanted:Qty : 8 on 11/15/2010 at [place] [facility] Tissue - Human N/A: Esophagus [employer] 05/06/2012 [id number] / / [id number] documented as of this encounter Advance Directives Documents on File Type Date Recorded Patient Refinery Operator Crude Unit Expl anation Advance Directives and Living Will 05/05/2020 ADVANCE DIRECTIVE / LIVING WILL Power of Personnel Technician 05/05/2020 POWER OF A TTORNEY MEDICAL [...] and were consensually agreed upon. Care Teams Holder Pile Driving Relationship Specialty Start Date End Date Kathy Sweeney MD [address] [place] [address] PCP - General Family Medicine 11/22/22 documented as of this encounter
--- OUTSIDE RECORDS SUMMARY | 2023-12-05 04:52 | External Medical Summary | Summary of Care ---
Author Name Unknown Organization [facility] Address [address] [place] [address] Phone [phone] Care Team Providers Care Operations Research Engineer Name Role Phone Kathy Sweeney MD Primary Care Provider [phone] Reason for Visit * Reason Onset Date Comments Home Health 12/04/2023 Advice 12/04/2023 Encounter Details Date Type Department Care Team (Late st Contact Info) Description 12/04/2023 Telephone Family Practice [facility] [address] [facility] [place] [address] Kathy Sweeney MD [address] [place] [address] Home Health; Advice Allergies Active Allergy Reactions [...] for any acute issues and assessed for care home placement. Tried to get CM but we do not work with her insurance. Discussed with [facility] nurse last week as well. * Telephone Encounter - Jessy Sol LPN - 12/04/2023 10:30 AM EDT HH Concerns Brandon PT, Calling from: [facility] Report/Concerns of: Fall daily in the AM. Unknown if patient has hit her head. No notable injuries. Symptoms: SEE NARRATIVE Vitals: T 97.2 P 99 RR 17 BP 140/64 SP O2 98% room air Lung sounds - clear Denies pain or SOB. Narrative: Brandon, PT is currently with Cherelle and her granddaughter Berna. Falling daily every morningexcept 2 times since being home from [place]. Patient isn't sleeping well, started Seroquel to [...] dizziness worsening since patient was discharged from [place] on 11/22. Dizziness worsens with position changes, leaning to the left today. Increased confusion since [place] DC (noted in Neurosurg notes as well), [...] grandlexiughter with any advice or orders at [phone]. [facility] * Telephone Encounter - Shellie Shen OSA - 12/04/2023 10:23 AM EDT Reason for patient's call: Brandon from [employer] [facility] requesting to speak with nurse Caller was transferred to [facility] at the nurse line. documented in this encounter Plan of Treatment Upcoming Encounters Date Type Department Care Team (Late st Contact Info) Description 12/05/2023 9:40 AM EDT Office Visit [facility] [address] [facility] [place] [address] Kathy Sweeney MD [address] [place] [address] 12/22/2023 11:20 AM EST Office Visit [facility] [address] [place] [address] [address] Kathy Sweeney MD [address] [facility] [address] [place] [address] 01/09/2024 10:00 AM EST Laboratory Laboratory [facility] [place] [address] [place] [address] [phone] [facility] [place] [address] [facility] [place] [address] 01/16/2024 12:30 PM EST Office Visit Hematology/Oncology [facility] [place] [address] [place] [address] [id number] Bindu Jones MD [address] [place] [address] 03/21/2024 3:30 PM EST Office Visit Neurology [facility] [place] [address] [place] [address] Abbie Arora PA-C [address] [address] 03/28/2024 8:30 AM EST Therapy Neuropsychology [facility] [place] [address] [place], [place] [address] Abundio Myles, PhD [address] [place] [address] Health Maintenance Due Date Last Done Comments [...] 06/29/2023, 09/03/19 15 CKD PHOS USE SMARTSET 33926 10/31/202410/08, 10/31/2023, 10/30/2023, Additional history exists CKD HGB USE SMARTSET 40921 11/20/202411/20, 11/21/2023, 11/14/2023, Additional history exists Colonoscopy 07/08/2026 07/08/2021, 03/2021, 11/19/2015, Additional history exists DTap/Tdap Vaccines (2 - Td or Tdap) 11/07/2026 11/07/2016, 07/16/2010 Pneumococcal Vaccine: 65+ Years Completed 09/02/2014, 08/30/2010 Zoster Vaccines Completed 11/21/2019, 0 08/2019, 07/25/2007 COVID-19 Vaccine Discontinued 04/21/2020, 03/31/2020 VITAMIN D LEVEL ONCE IN A LIFETIME-USE SMARTSET# [id number] Completed 10/13/2020, 12/26/2019, 06/21/2018, Additional history exists [...] encounter Medical Devices Implanted Type Area Material Stress Tester Device Identifier Shelf Expiration Date Model / Serial / Lot Alloderm 2x4 Sheet [id number] (8 Units) - [id number] [place]ed:Q[place] : 8 [place] [facility] [place] Human N/A: Esophagus [employer] 05/06/2012 [id number] / / [id number] documented as of this encounter Advance Directives Documents on File Type Date Recorded Patient Printer Maintainer Expl anation Advance Directives and Living Will 05/05/2020 ADVANCE DIRECTIVE / LIVING WILL Power of Bagel Maker 05/05/2020 POWER OF A TTORNEY MEDICAL [...] and were consensually agreed upon. Care Teams Operations Research Engineer Relationship Specialty Start Date End Date Kathy Sweeney MD [address] [place] [address] PCP - General Family Medicine 11/22/22 documented as of this encounter
--- OUTSIDE RECORDS SUMMARY | 2023-12-05 04:52 | External Medical Summary | Summary of Care ---
Author Name Unknown Organization [facility] Address [address] [place] [address] Phone [phone] Care Team Providers Care Branding Specialist Name Role Phone Kathy Sweeney MD Primary Care Provider [phone] Reason for Visit * Reason Onset Date Comments Home Health 12/04/2023 Advice 12/04/2023 Encounter Details Date Type Department Care Team (Late st Contact Info) Description 12/04/2023 Telephone Family Practice [facility] [address] [place] [address] Kathy Sweeney MD [address] [place] [address] Home Health; Advice Allergies Active Allergy Reactions [...] for any acute issues and assessed for [facility] placement. Tried to get CM but we do not work with her insurance. Discussed with [facility] nurse last week as well. * Telephone Encounter - Jessy Sol LPN - 12/04/2023 10:30 AM EDT HH Concerns Brandon PT, Calling from: [email or web address] Report/Concerns of: Fall daily in the AM. Unknown if patient has hit her head. No notable injuries. Symptoms: SEE NARRATIVE Vitals: T 97.2 P 99 RR 17 BP 140/64 SP O2 98% room air Lung sounds - clear Denies pain or SOB. Narrative: Brandon, PT is currently with Cherelle and her granddaughter Berna. Falling daily every morningexcept 2 times since being home from [place]. Patient isn't sleeping well, started Seroquel to [...] dizziness worsening since patient was discharged from [place] on 11/22. Dizziness worsens with position changes, leaning to the left today. Increased confusion since [place] DC (noted in Neurosurg notes as well), decreased mobility, Dark urine with strong odor -symp started 11/29. BRANDON LEFT A URINE SPECIMEN CUP AND HAT. Verbal given for a nurse eval to be done. Scheduled patient tomorrow with Dr. Sweeney at [phone] appt and patient wants to see her PCP only. Please advise if ER is appropriate or Call back adriana Coronel with any advice or orders at [phone]. [email or web address] * Telephone Encounter - Shellie Shen OSA - 12/04/2023 10:23 AM EDT Reason for patient's call: Brandon from [email or web address] PT requesting to speak with nurse Caller was transferred to Jessy at the nurse line. documented in this encounter Plan of Treatment Upcoming Encounters Date Type Department Care Team (Late st Contact Info) Description 12/05/2023 9:40 AM EDT Office Visit [facility] [address] [place], [place] [address] Kathy Sweeney MD [address] [place] [address] 12/22/2023 11:20 AM EST Office Visit [facility] [place] [address] [place] [address] Kathy Sweeney MD [address] [place], [place] [address] 01/09/2024 10:00 AM EST Laboratory Laboratory [facility] [place] [address] [place] [id number] [facility] [address] [place] [address] 01/16/2024 12:30 PM EST Office Visit Hematology/Oncology [facility] [place] [address] [place] [phone] Bindu Jones MD [address] [place] [place], [place] [address] 03/21/2024 3:30 PM EST Office Visit Neurology [facility] [place] [address] [place] [address] Abbie Arora PALanre [address] [address] 03/28/2024 8:30 AM EST Therapy Neuropsychology [facility] [place] [address] [place], [place] [address] Abundio Myles, PhD [address] [facility] [place], [place] [address] Health Maintenance Due Date Last Done Comments [...] 06/28/2024 06/29/2023, 09/03/19 CKD PHOS USE SMARTSET 56438 10/31/202410/08, 10/31/2023, 10/30/2023, Additional history exists CKD HGB USE SMARTSET 11257 11/20/202411/20, 11/21/2023, 11/14/2023, Additional history exists Colonoscopy 07/08/2026 07/08/2021, 03/2021, 11/19/2015, Additional history exists DTap/Tdap Vaccines (2 - Td or Tdap) 11/07/2026 11/07/2016, 07/16/2010 Pneumococcal Vaccine: 65+ Years Completed 09/02/2014, 08/30/2010 Zoster Vaccines Completed 11/21/2019, 08/2019, 07/25/2007 COVID-19 Vaccine Discontinued 04/21/2020, 03/31/2020 VITAMIN D LEVEL ONCE IN A LIFETIME-USE SMARTSET# [id number] Completed 10/13/2020, 12/26/2019, 06/21/2018, Additional history exists [...] this encounter Medical Devices Implanted Type Area Financial Report Service Sales Agent Device Identifier Shelf Expiration Date Model / Serial / Lot Alloderm 2x4 Sheet [id number] (8 Units) - [id number] Implanted:Qty : 8 on 11/15/2010 at [place] [facility] [place] Tissue - Human N/A: Esophagus [employer] 05/06/2012 [id number] / / [id number] documented as of this encounter Advance Directives Documents on File Type Date Recorded Patient Area Field Worker Expl anation Advance Directives and Living Will 05/05/2020 ADVANCE DIRECTIVE / LIVING WILL Power of Put In Beat Adjuster 05/05/2020 POWER OF A TTORNEY MEDICAL * [...] and were consensually agreed upon. Care Teams Branding Specialist Relationship Specialty Start Date End Date Kathy Sweeney MD [address] [place] [address] PCP - General Family Medicine 11/22/22 documented as of this encounter
[2023-12-05 06:33] LABS: Hematocrit (blood only) 43.1 % (37.0-47.0); Hemoglobin 14.6 g/dl (12.0-16.0); Mean Corpuscular Hemoglobin 28.4 pg (25.0-34.0); Mean Corpuscular Hgb Conc 33.9 g/dL (32.0-36.0); Mean Corpuscular Volume 83.9 fL (80.0-100.0); Mean Platelet Volume 8.5 fL (9.4-12.4); Platelet Count 274 K/uL (130-400); RDW Coefficient of Variation 14.4 % (11.5-14.5); RDW Standard Deviation 44.3 fL (36.4-46.3); Red Blood Count 5.14 M/uL (4.20-5.40); White Blood Count 13.69 K/ul (4.8-10.8)
[2023-12-05 06:55] LABS: BUN Creatinine Ratio 13.7 (10-20); Calcium 9.7 mg/dl (8.6-10.3); Creatinine Clr Calc Pharmacy 66.6 ml/min; Magnesium 1.8 mg/dl (1.7-2.4); Phosphorus 2.7 mg/dl (2.5-4.9); Potassium 3.6 mmol/L (3.5-5.1)
[2023-12-05] MEDS: lisinopril 20 MG TAB PO SCH (09:42)
[2023-12-05] MEDS: FLUTICASONE FUROATE 200MCG 14 PUFFS/INHALER INH SCH (09:42)
[2023-12-05] MEDS: amLODIPine BESYLATE 5 MG TAB PO SCH (09:42)
[2023-12-05] MEDS: PANTOprazole 40 MG TAB PO SCH (09:42)
[2023-12-05] MEDS: ATORVASTATIN 10 MG TAB PO SCH (11:10)
--- NOTE | 2023-12-05 11:40 | Hospitalist Progress Note ---
Date of Service December 05, 2023 Assessment & Plan (1) Acute UTI (urinary tract infection): Plan Cherelle Sherman is an 83y/o F with PMHx significant for primary hyperparathyroidism, dyslipidemia, prediabetes, asthma, aortic ectasia, HTN, mild mitral regurgitation, diastolic dysfunction, IBS, GERD with esophagitis, CKD stage III, incomplete bladder emptying, osteoporosis, mild dementia, peripheral neuropathy, Sjogren's syndrome, insomnia and history of B-cell lymphoma who presented to the ED for evaluation secondary to increased confusion/hallucinations and concern for UTI. Recently hospitalized in [facility] from 10/28 to 11/06 after she was found to have acute subdural hematoma with right-sided rib fracture after a fall. She was then discharged to [facility]. She was then transition home with 29/08 support. Acute UTI: Patient presents with increasing confusion/hallucination Leukocytosis present Urinalysis to infection Started on Rocephin; follow-up on urine culture and blood culture Hypokalemia: repleted Dementia, Insomnia: Increased confusion/hallucinations likely secondary to her UTI as per above. RVP negative. Head CT negative. Delirium precautions in place. Continue Seroquel, hold trazodone for now. Other Chronic Medical Conditions: HTN, dyslipidemia, asthma, GERD --> Can continue home medications for these specific conditions. DVT Prophylaxis: SCDs/TEDs for now ISO recent subdural hematoma last month. Code Status: FULL CODE . PCP: Kathy Sweeney MD Disposition: Admit to Med/Surg + Telemetry. PT OT ordered Please note the above document was generated using voice recognition software. It may contain grammatical, syntax or spelling errors. Any formal questions or concerns about the content, text or information contained within the body of this dictation should be directly addressed to the provider for clarification Admission and Anticipated Discharge Date Admission Date: December 04, 2023 Subjective Patient seen and examined at bedside. She is alert oriented to self and place. She reports that she does not recall coming to the hospital and getting admitted She denies fever, chills, chest pain or shortness of breath. Review of Systems Review of Systems: All systems reviewed & are unremarkable except as noted in Subjective Physical Exam Physical Exam: General: Alert oriented to self and place. Not in distress. Respiratory: Normal respiratory effort, lungs clear to auscultation, no wheeze, rales, rhonchi. No accessory muscle use. Cardiovascular: Regular rate, rhythm, no murmur, normal peripheral pulses, no BLE edema. Vessels: No JVD. Abdomen/GI: Normal bowel sounds, soft, nontender, no hepatosplenomegaly. Extremities/Musculoskeletal: No cyanosis or clubbing, extremities motor strength intact, moves all extremities. Neurologic: EOMI, no focal deficits, CN's II-XI not formally tested but appear grossly intact bilaterally. Skin: No rashes, normal color, warm/dry. Healing skin alterations on the R great toe and R heel region (no skin breakdown). Results & Data Results & Data Vital Signs (Past 12 Hours) Vital Signs Temp Pulse Pulse Resp BP Pulse Ox O2 Del Method 12/05/23 11:35 36.5 C 87 18 124/74 95 Room Air 12/05/23 10:25 Room Air 12/05/23 08:08 36.8 C 99 H 18 155/79 H 97 Room Air 12/05/23 07:17 101 H 12/05/23 03:47 36.8 C 89 18 150/68 H 99 Room Air
[2023-12-05] MEDS: cefTRIAXone SODIUM 2,000 MG/50 ML BAG IV SCH (17:12)
[2023-12-05] MEDS: QUEtiapine FUMARATE 25 MG TABLET PO SCH (20:24)
[2023-12-05] MEDS: MONTELUKAST SODIUM 10 MG TABLET PO SCH (20:24)
[2023-12-05] MEDS: OLANZapine 10 MG/2.1 ML SDV IM STA (22:34)
[2023-12-06] MEDS: ONDANSETRON INJ 2 MG/ML 2 ML VIAL IV PRN (01:42)
[2023-12-06 07:46] LABS: Basophils % (auto) 0.7 %; Eosinophils % (auto) 0.7 %; Hemoglobin 14.7 g/dl (12.0-16.0); Immature Granulocytes # (auto) 0.07 K/uL (0.01-0.20); Immature Granulocytes % (auto) 0.5 %; Lymphocytes # (auto) 3.13 K/uL (1.20-3.40); Lymphocytes % (auto) 22.6 %; Mean Corpuscular Hgb Conc 32.7 g/dL (32.0-36.0); Mean Corpuscular Volume 85.7 fL (80.0-100.0); Mean Platelet Volume 8.9 fL (9.4-12.4); Monocytes # (auto) 1.33 K/uL (0.11-0.59); Monocytes % (auto) 9.6 %; Neutrophils % (auto) 65.9 %; Platelet Count 306 K/uL (130-400); RDW Coefficient of Variation 14.7 % (11.5-14.5); RDW Standard Deviation 46.1 fL (36.4-46.3); Red Blood Count 5.25 M/uL (4.20-5.40); White Blood Count 13.83 K/ul (4.8-10.8)
[2023-12-06 07:58] LABS: BUN Creatinine Ratio 18.2 (10-20); Creatinine Clr Calc Pharmacy 51.6 ml/min; Potassium 4.1 mmol/L (3.5-5.1)
[2023-12-06] MEDS ORDERED: HALOPERIDOL LACTATE 5 MG/ML 1 ML VIAL IM PRN (09:05)
[2023-12-06] MEDS ORDERED: PROMETHAZINE 12.5 MG/50.5 ML BAG IV PRN (09:06)
--- NOTE | 2023-12-06 14:31 | Hospitalist Progress Note ---
Date of Service December 06, 2023 Assessment & Plan (1) Acute UTI (urinary tract infection): Plan 83y/o F with PMHx significant for primary hyperparathyroidism, dyslipidemia, prediabetes, asthma, aortic ectasia, HTN, mild mitral regurgitation, diastolic dysfunction, IBS, GERD with esophagitis, CKD stage III, incomplete bladder emptying, osteoporosis, mild dementia, peripheral neuropathy, Sjogren's syndrome, insomnia and history of B-cell lymphoma who presented to the ED for e valuation secondary to increased confusion/hallucinations and concern for UTI. Recently hospitalized in [facility] from 10/28 to 11/06 after she was found to have acute subdural hematoma with right-sided rib fracture after a fall. She was then discharged to [place] [facility] [facility]. She was then transition home with 29/08 support. Prior to this she was admitted at [facility] for ischemic colitis. She is being managed for the following: Acute UTI: Patient presents with increasing confusion/hallucination. Admitting leukocytosis Urine culture positive for Klebsiella. Continue with Rocephin 12/03. Follow-up blood cultureno growth 24 hours. Hypokalemia: repleted Dementia, Insomnia: Increased confusion/hallucinations likely secondary to her UTI as per above. RVP negative. Head CT negative. Delirium precautions in place. Continue Seroquel, hold trazodone for now. Prn haldol. pt didn't have a great sleep last night per rn. will add melatonin leigh. Other Chronic Medical Conditions: HTN, dyslipidemia, asthma, GERD --> Can continue home medications for these specific conditions. DVT Prophylaxis: SCDs/TEDs for now ISO recent subdural hematoma last month. Code Status: FULL CODE . PCP: Kathy Sweeney MD Disposition: Admit to Med/Surg + Telemetry. PT OT ordered Admission and Anticipated Discharge Date Admission Date: December 04, 2023 Subjective Patient seen and examined at bedside. She is alert oriented to self and place. Per RN, pt is noted to be occasionally confused. She denies fever, chills, chest pain or shortness of breath. Pt reports eating ok and moving bowels ok. Physical Exam Physical Exam: General: Alert oriented to self and place. Not in distress. Respiratory: Normal respiratory effort, lungs clear to auscultation, no wheeze, rales, rhonchi. No accessory muscle use. Cardiovascular: Regular rate, rhythm, tachy in high 90s. no murmur, normal peripheral pulses, no BLE edema. Vessels: No JVD. Abdomen/GI: Normal bowel sounds, soft, nontender, no hepatosplenomegaly. Extremities/Musculoskeletal: No cyanosis or clubbing, extremities motor strength intact, moves all extremities. Neurologic: EOMI, no focal deficits, CN's II-XI not formally tested but appear grossly intact bilaterally. Skin: No rashes, normal color, warm/dry. Healing skin alterations on the R great toe and R heel region (no skin breakdown). Results & Data Results & Data Vital Signs (Past 12 Hours) Vital Signs Temp Pulse Pulse Resp BP Pulse Ox O2 Del Method 12/06/23 11:42 36.4 C L 99 H 18 94/59 L 96 Room Air 12/06/23 08:00 Room Air 12/06/23 07:55 36.7 C 84 18 118/72 91 Room Air 12/06/23 07:14 93 H
[2023-12-06] MEDS: MELATONIN 3 MG TAB PO SCH (20:29)
[2023-12-07 06:30] LABS: Hematocrit (blood only) 44.7 % (37.0-47.0); Hemoglobin 14.7 g/dl (12.0-16.0); Mean Corpuscular Hemoglobin 27.9 pg (25.0-34.0); Mean Corpuscular Hgb Conc 32.9 g/dL (32.0-36.0); Platelet Count 337 K/uL (130-400); RDW Coefficient of Variation 14.6 % (11.5-14.5); RDW Standard Deviation 45.1 fL (36.4-46.3); Red Blood Count 5.26 M/uL (4.20-5.40); White Blood Count 15.45 K/ul (4.8-10.8)
[2023-12-07 06:33] LABS: BUN Creatinine Ratio 27.1 (10-20); Calcium 10.5 mg/dl (8.6-10.3); Creatinine Clr Calc Pharmacy 48.6 ml/min; Magnesium 1.8 mg/dl (1.7-2.4); Phosphorus 3.8 mg/dl (2.5-4.9); Potassium 4.3 mmol/L (3.5-5.1)
--- NOTE | 2023-12-07 14:02 | Discharge Summary ---
Date of Service December 07, 2023 Admission HPI Per Admitting Provider Cherelle Sherman is an 83y/o F with PMHx significant for primary hyperparathyroidism, dyslipidemia, prediabetes, asthma, aortic ectasia, HTN, mild mitral regurgitation, diastolic dysfunction, IBS, GERD with esophagitis, C KD stage III, incomplete bladder emptying, osteoporosis, mild dementia, peripheral neuropathy, Sjogren's syndrome and history of B-cell lymphoma who presented to the ED for evaluation secondary to increased confusion/hallucinations and concern for UTI. History obtained primarily via conversation with patient's son (Grant) over the phone and associated chart review due to the patient's mental status. Patient was recently admitted under our service (10/18/2023-10/25/2023) with possible ischemic colitis and esophagitis. She was then seen again in the ED on 10/29/2023 and found to have an acute subdural hematoma in addition to right- sided rib fractures following a fall. She was therefore transferred to [facility] via [facility] for admission (10/29/2023-). She was started on Keppra for seizure prevention. She was also noted to have alterations of the skin on the right heel and right great toe which were monitored by wound care while she was hospitalized. Several incidental findings were noted on admission including heterogeneous density of the thyroid gland with the larger nodule measuring up to 2.0 cm at the right thyroid lobe. She was also treated with Zosyn for sigmoid colitis and transitioned to ciprofloxacin and Flagyl. ID was consulted and recommended discontinuation of the antibiotics. Post-discharge, the patient spent two and a half weeks at [facility] before being transitioned home with 24/ support. Patient's son, Grant, notes that she has been acting more confused over the past few days. Mentions she has been experiencing some hallucinations as well. He rep orts that this usually occurs when she has a UTI. She has dementia at baseline, however she is not normally so confused and hallucinatory. No fevers reported. Patient has been otherwise feeling fine. She currently lives at home alone with daily caregiver/ekg manager support from 9AM to 8PM. Grant lives next door and monitors her closely throughout the night when the caregivers are not there. She is also currently participating in home PT/OT and speech therapy. Grant reports that she has been rather restless lately and has not been sleeping well. She was recently started on Seroquel and he has yet to see a change in her sleeping habits. Per [facility] chart review, it appears that the patient has fallen out of bed almost daily since being home from [facility] according to documentation regarding a conversation the physical therapist (Geovanna Eduardo) had with the on-call nursing line today. Seems patient has been increasingly confused since her discharge from [facility] and PT staff noticed that her urine has been darker with a notable foul odor since 11/30/2023. Patient wishing to go home soon. Explained to her that she requires admission until her UTI is appropriately treated. Patient understands that she has a UTI that needs to be treated. She denies any SOB, chest pain or abdominal pain. Mentions that she used the restroom in the ED without issue. Remembers that her son was present at bedside and just recently left to go home. Admission Exam Per Admitting Provider General: WD/WN, vitals as above, NAD, laying down in bed, very pleasantly confused. A+O to conversation with frequent redirection. HEENT: Normocephalic, atraumatic. PERRL, conjunctivae normal, anicteric sclerae. External ear and nose normal, oropharynx normal. Respiratory: Normal respiratory effort, lungs clear to auscultation, no wheeze, rales, rhonchi. No accessory muscle use. Cardiovascular: Regular rate, rhythm, no murmur, normal peripheral pulses, no BLE edema. Vessels: No JVD. Abdomen/GI: Normal bowel sounds, soft, nontender, no hepatosplenomegaly. Extremities/Musculoskeletal: No cyanosis or clubbing, extremities motor strength intact, moves all extremities. Neurologic: EOMI, no focal deficits, CN's II-XI not formally tested but appear grossly intact bilaterally. Skin: No rashes, normal color, warm/dry. Healing skin alterations on the R great toe and R heel region (no skin breakdown). Principal Diagnosis Acute UTI Hypokalemia Dementia, insomnia Discharge Exam General: Alert oriented to self and place. Not in distress. Respiratory: Normal respiratory effort, lungs clear to auscultation, no wheeze, rales, rhonchi. No accessory muscle use. Cardiovascular: Regular rate, rhythm, tachy in high 90s. no murmur, normal peripheral pulses, no BLE edema. Vessels: No JVD. Abdomen/GI: Normal bowel sounds, soft, nontender, no hepatosplenomegaly. Extremities/Musculoskeletal: No cyanosis or clubbing, extremities motor strength intact, moves all extremities. Neurologic: EOMI, no focal deficits, CN's II-XI not formally tested but appear grossly intact bilaterally. Skin: No rashes, normal color, warm/dry. Healing skin alterations on the R great toe and R heel region (no skin breakdown). Discharge Data Allergies Allergy/AdvReac Type Severity Reaction Status Date / Time aspirin Allergy Mild lip sweling Verified 04/28/22 11:25 Penicillins Allergy Mild UNKNOWN Verified 04/28/22 11:26 diphenhydramine Allergy Edema of Verified 04/28/22 11:25 [From Benadryl] face, lips, tongue ibuprofen Allergy edema of Verified 04/28/22 11:25 face, lips, tongue red dye Allergy Edema of Verified 04/28/22 11:25 face, lips & tongue. Hives Consultations 12/04/23 17:10 ED Decision to Admit Stat Ordered Studies 12/04/23 14:45 CT head/brain wo con Stat Hospital Course (1) Acute UTI (urinary tract infection): Plan 83y/o F with PMHx significant for primary hyperparathyroidism, dyslipidemia, prediabetes, asthma, aortic ectasia, HTN, mild mitral regurgitation, diastolic dysfunction, IBS, GERD with esophagitis, CKD stage III, incomplete bladder emptying, osteoporosis, mild dementia, peripheral neuropathy, Sjogren's syndro me, insomnia and history of B-cell lymphoma who presented to the ED for evaluation secondary to increased confusion/hallucinations and concern for UTI. Recently hospitalized in [facility] from 10/28 to 11/06 after she was found to have acute subdural hematoma with right-sided rib fracture after a fall. She was then discharged to [facility]. She was then transition home with 29/08 support. Prior to this she was admitted at [facility] for ischemic colitis. She was managed for the following: Acute UTI: Patient presents with increasing confusion/hallucination. Admitting leukocytosis Urine culture positive for Klebsiella. Continue with Rocephin 12/03. Follow-up blood cultureno growth 24 hours. to oral antibiotic to complete 7-day course on discharge. Hypokalemia: repleted Dementia, Insomnia: Increased confusion/hallucinations likely secondary to her UTI as per above. RVP negative. Head CT negative. Delirium precautions in place. Continue Seroquel, hold trazodone for now. Prn haldol. Patient slept great last night, is doing much better, did not require any as needed IM Haldol. Other Chronic Medical Conditions: HTN, dyslipidemia, asthma, GERD --> Can continue home medications for these specific conditions. DVT Prophylaxis: SCDs/TEDs for now ISO recent subdural hematoma last month. Code Status: FULL CODE . PCP: Kathy Sweeney MD Patient is being discharged to home with home health and family support with following instruction at the point of discharge. Patient's son was given a phone call for general update and discharge instruction prior to discharge. Follow-up with your primary care physician within a week time and likely you will need labs CBC/CMP/magnesium/phosphorus. You will be discharged on oral antibiotic to complete 7-day course for acute UTI. You can take [id number] melatonin to help you with sleep in the night. Take your medications as prescribed. Please make sure that you are able to get your medications today by calling your pharmacy before you leave the hospital so that your treatment continuity is not broken. Home Health Attestation I certify that this patient is under my care and that I, or a physicians delisa holder working with me, had a face to-face encounter that meets the home health [id number] encounter requirements with this patient. The encounter with the patient was in whole, or in part, for the following medical condition, which is the primary reason for home health care (list medical condition): UTI, sepsis; resumption of care (adding on nursing) I certify that, based on my findings, the following services are medically necessary home health services: My clinical findings support the need for the above services because: Home Safety Assessment Medication Compliance and Monitoring Effective of New Medications Medication Compliance OT Assess ADL Status and Restore Function w ADLs PT Assessment for Endurance / Balance / Strength PT Eval for Safety and Mobility PT Eval for Safety, Gait Training, Assistive Devices PT Gait and Balance Training, Strengthening and Safety Safety Skilled Nsg Assessment Skilled Nsg Instruction New Medications Skilled Nsg Assess Pt Illness, Disease and Sx Monitoring S/S to Report to Provider Teach on Disease Management and Interventions Vital Signs Further, I certify that my clinical findings support that this patient is homebound (i.e. absences from home require considerable and taxing effort and are for medical reasons or zoroastrian services or infrequently or of short d uration when for other reasons) because: Transportation Assistance/Unable to Leave Home Unassisted Certification for Home Health Services: Based on the above findings, I certify that this patient is confined to the home and needs intermittent retirement care, physical therapy and/or speech therapy or continues to need occupational therapy. The patient is under my care, and I have initiated the establishment of the plan of care. This patient will be followed by a physician who will periodically review the plan of care. Total Time Total Time Spent Total Time Spent (In Minutes): 35 Discharge Plan Discharge Items Patient Disposition: Home - Home Health Services Reason For Visit: COMPLICATED UTI, SEPSIS Discharge Diagnosis: Acute UTI Hypokalemia Dementia, insomnia Activity: Resume your previous activity Non-emergency contact: Primary Care Provider Call non-emergency contact if: you have any medication questions and your symptoms worsen Follow-up/Referrals: Kathy Sweeney MD [Primary Care Provider] - (Date & Time 12/12/2023 3:20 PM Provider Kathy Sweeney MD Department [facility] ) Diet: Heart Healthy Addtl Attending Provider Instructions: Follow-up with your primary care physician within a week time and likely you will need labs CBC/CMP/magnesium/phosphorus. You will be discharged on oral antibiotic to complete 7-day course for acute UTI. You can take ajfl-ode-ncegisp melatonin to help you with sleep in the night. Take your medications as prescribed. Please make sure that you are able to get your medications today by calling your pharmacy before you leave the hospital so that your treatment continuity is not broken. Pending Studies at Discharge: Yes Stand-Alone Forms: My [employer], Smoking Cessation Medications and DC Order Prescriptions: New Advanced Probiotic 625 mg (10 billion cell) Capsule 1 cap PO DAILY 7 Days Qty: 7 0RF cefdinir 300 mg capsule 300 mg PO BID 4 Days Qty: 8 0RF Continued trazodone 50 mg tablet 50 mg PO HS atorvastatin 10 mg tablet 10 mg PO DAILY lisinopril 20 mg tablet 20 mg PO DAILY amlodipine 5 mg tablet 5 mg PO DAILY tramadol 50 mg tablet 50 mg PO Q6H PRN (Reason: Pain) meclizine 25 mg tablet 25 mg PO TID PRN (Reason: Dizziness Or Vertigo) montelukast 10 mg tablet 10 mg PO HS estradiol 0.01 % (0.1 mg/gram) cream 1 applic VAGINAL UD Rx Instructions: 1-3 times a week albuterol sulfate 90 mcg/actuation HFA aerosol inhaler 2 inh INHALATION Q4H PRN (Reason: Shortness Of Breath Or Wheezing) fluticasone propionate 110 mcg/actuation HFA aerosol inhaler 2 puff INHALATION BID pantoprazole 40 mg Tablet,Delayed Release (Dr/Ec) 40 mg PO DAILY Qty: 30 1RF famotidine 20 mg tablet 20 mg PO HS PRN (Reason: heartburn) Qty: 0 0RF quetiapine 25 mg tablet 25 mg PO HS Discharge Orders: Discharge Order (Routine); Ordered 12/07/23 Ordered By: Juliet Diaz Admission Data Admit Date/Time: 12/04/23 17:30 Attending Provider: Juliet Diaz Admit Provider: Brayan Aaron Primary Care Provider: Kathy Sweeney Other Providers: Brayan Aaron; [facility] Fax
[2023-12-07 15:27] VITALS: BP 130/66; PULSE 94; RESP 20; TEMP 97.9; O2SAT 98
== END 2023-12-07 17:35 | disposition home health service (06) | DRG 689 ==
LOC: ED 13:56 → 2N 17:30 → INTOOBSV 17:30 → SUATTDRO 17:30 → 2N 20:44